=== PATIENT | male | born 1940 | race Caucasian/White ===

== ENCOUNTER 2019-10-20 16:05 | Outpatient (CLI) | payer MEDICARE, SELFPAY ==
[2019-10-20 17:07] LABS: Calcium 9.4 mg/dL (8.5-10.1)
[2019-10-23 10:33] LABS: Vitamin D 25 Hydroxy 62 ng/mL (30-100)
[2019-10-23 13:18] LABS: Parathyroid Intact 93 pg/mL (14-64)
== END 2019-10-20 16:06 | disposition home or self-care (01) ==
LOC: CHSLAB 16:11
DX: M81.0 Age-related osteoporosis without current pathological fracture (principal)
CPT/HCPCS: 36415; 82306; 82310; 83970

== ENCOUNTER 2019-11-22 02:58 | Observation (INO) | payer MEDICARE, OTHER, SELFPAY ==
[2019-11-22] VITALS (18 sets, daily range): BP systolic 96–164; BP diastolic 45–82; PULSE 76–116; RESP 18–30; TEMP 36.1–36.8; O2SAT 96–99; BMI 23.8
--- NOTE | ~2019-11-22 | CT_ITS ---
EXAMINATION:CT chest high resolution w con DATE: 11/22/2019 06:42 INDICATION: Shortness of breath. Pneumonia. TECHNIQUE: Computed tomography (CT) of the chest was performed with 75 mL Omnipaque 350 intravenous c ontrast. Automated exposure control and iterative reconstruction technique were employed. The dose-le ngth product (DLP) was 206.74 mGy-cm. COMPARISON: Chest CT 12/13/2014, chest 2 views 03/08/2019 FINDINGS: There is moderate emphysema. There is a 6 mm nodule and left lower lobe without change, con sistent with granulomatous disease. There is mild atelectasis bilaterally. No pleural effusion. The h eart size is normal. There are coronary artery calcifications. 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 There is a left chest pacer with lead in right ventricle. Calcified right hilar lymph nodes are consistent with old granulomatous disease. Andrew cifications in the liver and spleen are consistent with old granulomatous disease. There is a [address] in the liver. There is cortical thinning of the kidneys. There are bridging endplate osteophytes a t multiple levels in the spine, consistent with diffuse idiopathic skeletal hyperostosis (DISH). Ther e is mild thoracic spondylosis. IMPRESSION: 1. Moderate emphysema. Reviewed, dictated and finalized at location A. IMPRESSION: 1. Moderate emphysema.
--- NOTE | 2019-11-22 03:07 | ECG_ITS ---
Measurements Intervals [place] Rate: 109 P: 83 NH: 171 QRS: 61 QRSD: 88 T: 79 QT: 293 QTc: 396 Interpretive Statements SINUS TACHYCARDIA VENTRICULAR PREMATURE COMPLEX ANTEROSEPTAL INFARCT, AGE INDETERMINATE BORDERLINE T WAVE ABNORMALITY- HIGH LATERAL LEADS BASELINE ARTIFACT- I, II, AVR, AVL, AVF, V1, V4-V6 ABNORMAL ECG Electronically Signed On 11-22-2019 7:49:23 CDT by De Alcocer D.O.
[2019-11-22] MEDS: IPRATROPIUM 0.5 MG/ALBUTEROL SULFATE 2.5 MG AMPUL.NEB 3 ML INHALATION ×3 (03:35→06:02)
[2019-11-22 04:11] LABS: Base Excess ABG 1.1 mmol/L (0-2); HCO3 ABG 27.7 mmol/L (23-29); Oxygen Content ABG 18.9 %vol (16.0-22.0); Oxygen Saturation ABG 97.3 % (95-97); Oxyhemoglobin 96.6 % (94-100); PCO2 ABG 51.6 mmHg (35-45); PO2 ABG 104.6 mmHg (75-85); Total Hemoglobin 13.8 g/dL; pH ABG 7.35 (7.35-7.45)
[2019-11-22 04:15] LABS: Basophils Absolute Auto 0.05 K/mm3 (0.00-0.10); Basophils Percent Auto 0.5 % (0.0-1.0); Eosinophils Percent Auto 4.3 % (1.0-6.0); Hematocrit 40.9 % (37.0-46.0); Hemoglobin 13.4 g/dL (12.4-15.3); Immature Granulocyte Absolute 0.04 K/mm3 (0.00-0.00); Immature Granulocyte Percent A 0.4 % (0.0-0.0); Lymphocytes Absolute Auto 1.43 K/mm3 (1.10-4.50); Lymphocytes Percent Auto 15.5 % (18.0-42.0); Mean Corpuscular HGB Conc 32.8 g/dL (32.0-36.0); Mean Corpuscular Hemoglobin 31.8 pg (27.0-31.0); Mean Corpuscular Volume 97.1 fL (78.0-102.0); Mean Platelet Volume 9.2 fl (8.7-11.0); Monocytes Absolute Auto 0.45 K/mm3 (0.10-0.90); Monocytes Percent Auto 4.9 % (2.0-11.0); Neutrophils Absolute Auto 6.9 K/mm3 (1.7-7.2); Neutrophils Percent Auto 74.4 % (50.0-70.0); Platelet Count Result 275 K/mm3 (150-420); Red Blood Count 4.21 M/mm3 (4.70-6.10); Red Cell Distribution Width 12.6 % (11.6-14.4); White Blood Count 9.2 K/mm3 (4.8-10.8)
[2019-11-22 04:15] LABS: Site Drawn LEFT RADIAL
[2019-11-22 04:16] LABS: Device NASAL CANNULA; Modified Allen's Test Pass
[2019-11-22 04:28] LABS: D Dimer 0.31 mg/L (0.19-0.50)
[2019-11-22 04:34] LABS: Lactic Acid 0.6 mmol/L (0.4-2.0)
[2019-11-22 04:36] LABS: Alanine Aminotransferase 17 U/L (16-63); Albumin Level 3.9 g/dL (3.4-5.0); Alkaline Phosphatase 88 U/L (46-116); Anion Gap 8.1 mmol/L (7-16); Aspartate Amino Transferase 18 U/L (15-37); BNP 122 pg/mL (0-100); Bilirubin,Total 1.1 mg/dL (0.00-1.00); Blood Urea Nitrogen 19 mg/dL (7-18); Calcium 9.3 mg/dL (8.5-10.1); Carbon Dioxide 31 mmol/L (21-32); Chloride 102 mmol/L (98-108); Estimated CRCL calculation 55 ml/min; Estimated Glomerular Filt Rate > 60; Glucose 127 mg/dL (70-99); Osmolality Calculated 288 mOsm/kg (285-295); Potassium 4.1 mmol/L (3.5-5.1); Sodium 137 mmol/L (136-145); Total Protein 7.5 g/dL (6.4-8.2)
[2019-11-22 04:37] LABS: Magnesium 2.2 mg/dL (1.8-2.4); Troponin I < 0.02 ng/mL (0.00-0.056)
[2019-11-22 04:41] LABS: Influenza Control Valid (Valid)
--- NOTE | 2019-11-22 05:21 | ED.SOB ---
HPI - SOB/Dyspnea General Source: patient Mode of arrival: EMS History of Present Illness HPI Narrative: 79 y.o. male with oxygen dependent (3L) COPD and ischemic cardiomyopathy (ejection fraction over 30%) developed acute shortness of breath at about 5 PM on 11/20. Pt denies increased cough, chest pain, sputum production, fever, chills, pedal edema. Lives alone, self isolates. Any attempts to lay flat cause marked incresease in shortness of breath. He sees Dr. Sam, cardiology, and Dr. Fisher, pulmonary. He is allergic to ampicillin. Related Data Home Medications Medication Instructions Recorded Confirmed carvedilol 3.125 mg PO BID 11/22/19 11/22/19 Allergies Allergy/AdvReac Type Severity Reaction Status Date / Time tramadol Allergy Intermediate Hives Verified 03/04/19 13:45 amoxicillin Allergy Mild Rash Verified 03/04/19 13:45 doxycycline Allergy Mild Rash Verified 03/04/19 13:45 latex Allergy Mild Rash Verified 03/04/19 13:45 Review of Systems Constitutional: Constitutional: Denies chills and Denies fever(s) ENT: Denies sore throat Cardiovascular: Cardiovascular: Reports no additional cardiovascular complaints Respiratory: Respiratory: Reports no additional respiratory complaints Gastrointestinal: Gastrointestinal: Denies nausea and Denies vomiting Integumentary/Breasts: Skin/Breast: Denies rash [facility] Past Medical History Medical History (Updated 11/22/19 @ 06:13 by Marcelo Resendez MD) Cardiomyopathy Fall as cause of accidental injury at home as place of occurrence GERD (gastroesophageal reflux disease) Social History Social History (Updated 11/22/19 @ 06:14 by Marcelo Resendez MD) Smoking status: Former smoker Alcohol intake: current Drinks per week: 21 Substance use: never Living arrangements: alone Gender identity (if verbalized by the patient): Male Spiritual care concerns: No Exam Const: General: ill appearing; No diaphoretic Nutritional Appearance: thin Orientation/consciousness: patient oriented x3 Other: Sitting straight up in bed. Tachypneic, supraclavicular ms. use, intercostal retraction, paradoxical breathing, 3 - 4 word sentences. HENMT: Mouth: Yes Normal oral and palatal mucosa present and Yes moist mucous membranes abnormal Neck: Neck: no lymphadenopathy Chest: Chest palpation & inspection: other (intercostal retraction) Resp: Effort & Inspection: abnormal respiratory pattern, no audible wheezes, Actively coughing (occasional dry cough) dry, paradoxical thoraco-abdominal movements, respiratory distress, tachypneic, no tripod positioning and uses accessory muscles Auscultation: no rales, no wheezes and diminished lung sounds diffuse Cardio: Jugular venous distension: JVD (up to 45 degrees.) Rate: regular rate Heart sounds: S1 normal heart sound present, S2 normal heart sound present and no murmurs GI: Inspection: normal to inspection GI Palp: No abdominal tenderness and Yes No hepatosplenomegaly present Back/Spine/Pelvis: Back: no CVA tenderness Skin: General skin exam: normal color Rashes: no rashes Neuro: General: patient oriented x3 Course Course Emergency Course: Pt's dyspnea markedly improved in the E.D. with resolution of labored respirations; pt. speaking full sentences. Vital Signs Vital signs: Vital Signs Temperature 36.8 C 11/22/19 03:10 Pulse Rate 110 H 11/22/19 03:10 Respiratory Rate 30 H 11/22/19 03:10 Blood Pressure 129/79 11/22/19 03:10 Pulse Oximetry 98 11/22/19 03:10 Temperature 36.7 C 11/22/19 06:48 Pulse Rate 98 11/22/19 06:48 Respiratory Rate 20 11/22/19 06:48 Blood Pressure 143/54 H 11/22/19 06:48 Pulse Oximetry 97 11/22/19 06:48 MDM - SOB/Dyspnea MDM Narrative Medical decision making narrative: Acute exacerbation of COPD responsive to solumedrol and duoneb x 3. Will admit for IV antibiotics and steriods. at 5 PM 11/20. Negative d-dimer. No evidence of CHF. Consider SD/ACS. Wi
[2019-11-22 05:51] LABS: Add Urine Microscopic? YES; Appearance Urine Clear (Clear); Bilirubin Urine Negative (Negative); Blood Urine Negative (Negative); Color Urine Yellow (Yellow); Glucose Urine UA Negative (Negative); Ketones Urine Negative (Negative); Leukocyte Esterase Ur 1+ (Negative); Nitrate Urine Negative (Negative); Protein Urine Negative (Negative); Urobilinogen Urine 0.2 mg/dL (0.2-1.0)
[2019-11-22 05:59] LABS: Bacteria Urine Trace /hpf; RBC Urine 0-2 /hpf (0-2)
[2019-11-22] MEDS: levoFLOXacin 500 MG/D5W 100 ML 500 MG/100 ML BAG 100 MG IVPB (06:03)
[2019-11-22] MEDS: ALBUTEROL SULFATE (*SP) INHALER 8 PUFF INHALATION ×4 (09:28→21:27)
[2019-11-22] MEDS: FLUTICASONE PROPIONATE 0.05% NA SPR 16 GM BTL (*BKC) 2 SPRAY NASAL ×2 (09:28→21:28)
[2019-11-22] MEDS: POLYSACCHARIDE IRON COMPLEX 150 MG CAPSULE PO (09:30)
[2019-11-22] MEDS: POTASSIUM CHLORIDE 20 MEQ TABLET 40 MEQ PO (09:30)
[2019-11-22] MEDS: ARFORMOTEROL TARTRATE 15 MCG/2 ML NEB 30 MCG INHALATION (09:30)
[2019-11-22] MEDS: FUROSEMIDE 40 MG TABLET PO (09:30)
[2019-11-22] MEDS: LORATADINE 10 MG TABLET PO (09:31)
[2019-11-22] MEDS: ATORVASTATIN 40 MG TABLET PO (09:31)
[2019-11-22] MEDS: DOCUSATE SODIUM 100 MG CAPSULE PO (09:31)
[2019-11-22] MEDS: ALPRAZolam 0.25 MG TABLET PO ×2 (09:31→16:31)
[2019-11-22] MEDS: carvediloL 3.125 MG TABLET PO ×2 (09:31→16:31)
[2019-11-22] MEDS: SERTRALINE HCL 50 MG TABLET PO (09:31)
[2019-11-22] MEDS: ASPIRIN 81 MG ENTERIC TABLET PO (09:31)
[2019-11-22] MEDS: methylPREDNISolone SOD SUCC 125 MG VIAL 80 MG IV PUSH ×3 (09:32→16:31)
[2019-11-22] MEDS: ENOXAPARIN 40 MG/0.4 ML SYRINGE SUB-Q (09:32)
[2019-11-22] MEDS: BUDESONIDE RESPULE NEB 0.25 MG/2 ML AMP INHALATION (09:32)
[2019-11-22] MEDS: SALINE LOCK FLUSH 2 ML IV PUSH ×3 (09:39→21:32)
--- NOTE | 2019-11-22 10:00 | ECG_ITS ---
Measurements Intervals [place] Rate: 94 P: 78 MD: 171 QRS: 75 QRSD: 88 T: 90 QT: 316 QTc: 395 Interpretive Statements SINUS RHYTHM LOW QRS VOLTAGE IN PRECORDIAL LEADS ANTEROSEPTAL INFARCT, AGE INDETERMINATE BORDERLINE T WAVE ABNORMALITY- INF/HIGH LAT LEADS BASELINE ARTIFACT- V4-V6 ABNORMAL ECG Electronically Signed On 11-22-2019 10:52:32 CDT by De Alcocer D.O.
[2019-11-22 10:38] LABS: Troponin I 0.02 ng/mL (0.00-0.056)
--- NOTE | 2019-11-22 13:15 | PM.IMHP ---
H&P: HPI History of Present Illness Chief complaint: COPD EXACERBATION Narrative: Chip Emery is a 79 year old male white male that presented to [facility] ED with complaints of increased shortness of breath. Patient has a past medical history of cardiomyopathy, GERD, BPH, CAD, COPD, hypertension. According to patient he developed shortness of breath at approximately 5:00 p.m. yesterday. According to patient and worsen when he lied down and moved around. He did get passive nebulizer treatment improvement this, is when he decided to come to our ED. While in our ED patient given steroids, nebulized and inhalers. Patient UA indicated leukocytes esterase ,white blood cells and bacteria ,his troponins was negative his BNP was 122. he was placed on Levaquin, influenza negative COVID-19 pending. patient being admitted for COPD exacerbation. Patient able to tolerate all meals , slept well and ambulate at baseline. Patient denies , CP, palpitation, extremity numbness, lightheadness, dizziness, constipation, diarrhea, chills or fever. Patient noted that his breathing has improved Review of Systems Review of Systems: Narrative: CONSTITUTIONAL :No weight loss, fever, chills, complains of weakness or fatigue.: HEENT: Eyes: No diplopia or blurred vision. ENT: No earache, sore throat or runny nose. CARDIOVASCULAR: No pressure, squeezing, strangling, tightness, heaviness or aching about the chest, neck, axilla or epigastrium. RESPIRATORY: complains of shortness of breath that worsens with ambulation and lying flat GASTROINTESTINAL: No nausea, vomiting or diarrhea. GENITOURINARY: No dysuria, frequency or urgency. MUSCULOSKELETAL: No muscle, back pain, joint pain or stiffness. SKIN: No change in skin, hair or nails. NEUROLOGIC: No paresthesias, fasciculations, seizures or weakness. PSYCHIATRIC: No disorder of thought or mood. ENDOCRINE: No heat or cold intolerance, polyuria or polydipsia. HEMATOLOGICAL: No easy bruising or bleeding. [facility] Past Medical History Medical History (Updated 11/22/19 @ 13:24 by BAILEY [place]) Cardiomyopathy Fall as cause of accidental injury at home as place of occurrence GERD (gastroesophageal reflux disease) Social History Social History (Updated 11/22/19 @ 06:14 by Marcelo Resendez MD) Smoking status: Former smoker Alcohol intake: current Drinks per week: 21 Substance use: never Living arrangements: alone Gender identity (if verbalized by the patient): Male Spiritual care concerns: No Meds Home Medications and Allergies Home Medications Medication Instructions Recorded Confirmed Type fluticasone propionate 2 spray INTRANASAL Q12HR 30 Days 03/14/19 11/22/19 Rx ml loratadine 10 mg PO QAM 30 Days #30 tablet 03/14/19 11/22/19 Rx polysaccharide iron complex 150 mg PO DAILY@0800 30 Days #30 03/14/19 11/22/19 Rx cap potassium chloride [K-Tab] 40 meq PO DAILY 30 Days #60 tablet 03/14/19 11/22/19 Rx Brovana 2 ml INHALATION BID #50 ml 03/15/19 11/22/19 Rx Combivent Respimat 2 puff INHALATION QID #1 inh 03/15/19 11/22/19 Rx alprazolam [Xanax] 0.25 mg PO BID #15 tablet 03/15/19 11/22/19 Rx aspirin [Adult Low Dose Aspirin] 81 mg PO DAILY #30 tablet 03/15/19 11/22/19 Rx atorvastatin 40 mg PO DAILY #30 tablet 03/15/19 11/22/19 Rx budesonide [Pulmicort] 0.25 mg INHALATION BID #50 ml 03/15/19 11/22/19 Rx coenzyme Q10 [Co Q-10] 30 mg PO DAILY #30 cap 03/15/19 11/22/19 Rx cyanocobalamin (vitamin B-12) 1,000 mcg SUBCUT [id number] #1 ml 03/15/19 11/22/19 Rx docusate sodium 100 mg PO DAILY #30 cap 03/15/19 11/22/19 Rx furosemide [Lasix] 40 mg PO DAILY #30 tablet 03/15/19 11/22/19 Rx ipratropium-albuterol 3 ml INHALATION Q2-3H PRN #30 neb 03/15/19 11/22/19 Rx lisinopril 2.5 mg PO HS #30 tablet 03/15/19 11/22/19 Rx nitroglycerin [Nitrostat] 0.4 mg SUBLINGUAL USEASDIRECTD #1 03/15/19 11/22/19 Rx pkg pantoprazole 40 mg PO HS #30 tablet 03/15/19 11/22/19 Rx sertraline 50 mg PO DAILY #30 tablet
[2019-11-22 14:20] LABS: Folic Acid > 20.0 ng/mL (8.6->20); Vitamin B12 373 pg/mL (193-986)
--- NOTE | 2019-11-22 16:00 | ECG_ITS ---
Measurements Intervals [place] Rate: 87 P: 82 [place]: 176 QRS: 64 QRSD: 93 T: 101 QT: 359 QTc: 433 Interpretive Statements SINUS RHYTHM LOW QRS VOLTAGE IN PRECORDIAL LEADS ANTEROSEPTAL INFARCT, AGE INDETERMINATE BORDERLINE T WAVE ABNORMALITY- LAT/HIGH LAT LEADS ABNORMAL ECG Electronically Signed On 11-22-2019 16:16:21 CDT by De Alcocer D.O.
[2019-11-22 16:20] LABS: Troponin I < 0.02 ng/mL (0.00-0.056)
[2019-11-22 19:21] LABS: SARS-CoV-2 RNA PCR Negative
--- NOTE | 2019-11-22 20:00 | PC.NURSE ---
While taking patient's blood pressure nurse noted saline lock to left wrist laying in the bed with him. Dressing removed from area. No active bleeding noted to area.
--- NOTE | 2019-11-22 21:11 | PC.NURSE ---
Patient's covid test came back with a negative result. Patient moved to room 205B.
--- NOTE | 2019-11-22 21:20 | PC.NURSE ---
EKG done. Patient tolerated well.
[2019-11-22] MEDS: guaiFENesin 12 HR 600 MG TABCR PO (21:28)
[2019-11-22] MEDS: lisinopriL 5 MG TABLET 2.5 MG PO (21:30)
[2019-11-22] MEDS: PANTOPRAZOLE 40 MG TABLET PO (21:31)
[2019-11-22] MEDS: TAMSULOSIN HCL 0.4 MG CAPSULE 0.8 MG PO (21:31)
--- NOTE | 2019-11-22 21:45 | PC.NURSE ---
Lab drawn. Patient tolerated well.
--- NOTE | 2019-11-22 22:00 | ECG_ITS ---
Measurements Intervals [place] Rate: 83 P: 82 MO: 164 QRS: 73 QRSD: 89 T: 247 QT: 364 QTc: 429 Interpretive Statements SINUS RHYTHM LOW QRS VOLTAGE IN PRECORDIAL LEADS ANTEROSEPTAL INFARCT, AGE INDETERMINATE BORDERLINE T WAVE ABNORMALITY- INF/LAT LEADS ABNORMAL ECG Electronically Signed On 11-23-2019 7:18:29 CDT by De Alcocer D.O.
[2019-11-22 22:25] LABS: Troponin I < 0.02 ng/mL (0.00-0.056)
[2019-11-23] VITALS (11 sets, daily range): BP systolic 105–115; BP diastolic 45–52; PULSE 71–88; RESP 18–20; TEMP 36.1–36.6; O2SAT 97–98
[2019-11-23] MEDS: SALINE LOCK FLUSH 2 ML IV PUSH (05:34)
[2019-11-23] MEDS: levoFLOXacin 500 MG/D5W 100 ML 500 MG/100 ML BAG 100 MG IVPB (05:34)
[2019-11-23 05:38] LABS: Hematocrit 36.2 % (37.0-46.0); Hemoglobin 12.2 g/dL (12.4-15.3); Mean Corpuscular HGB Conc 33.7 g/dL (32.0-36.0); Mean Corpuscular Hemoglobin 32.4 pg (27.0-31.0); Platelet Count Result 240 K/mm3 (150-420); Red Blood Count 3.77 M/mm3 (4.70-6.10); Red Cell Distribution Width 12.5 % (11.6-14.4); White Blood Count 12.6 K/mm3 (4.8-10.8)
[2019-11-23 05:54] LABS: Alanine Aminotransferase 19 U/L (16-63); Albumin Level 3.5 g/dL (3.4-5.0); Alkaline Phosphatase 75 U/L (46-116); Anion Gap 9.3 mmol/L (7-16); Aspartate Amino Transferase 15 U/L (15-37); Bilirubin,Total 0.8 mg/dL (0.00-1.00); Blood Urea Nitrogen 24 mg/dL (7-18); Calcium 9.2 mg/dL (8.5-10.1); Carbon Dioxide 31 mmol/L (21-32); Chloride 101 mmol/L (98-108); Estimated CRCL calculation 56 ml/min; Estimated Glomerular Filt Rate > 60; Glucose 144 mg/dL (70-99); Osmolality Calculated 291 mOsm/kg (285-295); Potassium 4.3 mmol/L (3.5-5.1); Sodium 137 mmol/L (136-145)
--- NOTE | 2019-11-23 08:04 | PC.NURSE ---
Requesting neb treatment, noted to have been discontinued on JUL, hospitalist notified
[2019-11-23] MEDS: ARFORMOTEROL TARTRATE 15 MCG/2 ML NEB 30 MCG INHALATION (08:26)
[2019-11-23] MEDS: BUDESONIDE RESPULE NEB 0.25 MG/2 ML AMP INHALATION (08:29)
[2019-11-23] MEDS: POLYSACCHARIDE IRON COMPLEX 150 MG CAPSULE PO (09:03)
[2019-11-23] MEDS: methylPREDNISolone SOD SUCC 125 MG VIAL 60 MG IV PUSH (09:04)
[2019-11-23] MEDS: ALPRAZolam 0.25 MG TABLET PO (09:04)
[2019-11-23] MEDS: ATORVASTATIN 40 MG TABLET PO (09:05)
[2019-11-23] MEDS: ASPIRIN 81 MG ENTERIC TABLET PO (09:05)
[2019-11-23] MEDS: carvediloL 3.125 MG TABLET PO (09:06)
[2019-11-23] MEDS: THIAMINE HCL 100 MG TABLET 50 MG PO (09:06)
[2019-11-23] MEDS: POTASSIUM CHLORIDE 20 MEQ TABLET 40 MEQ PO (09:08)
[2019-11-23] MEDS: SERTRALINE HCL 50 MG TABLET PO (09:08)
[2019-11-23] MEDS: DOCUSATE SODIUM 100 MG CAPSULE PO (09:09)
[2019-11-23] MEDS: LORATADINE 10 MG TABLET PO (09:09)
[2019-11-23] MEDS: FUROSEMIDE 40 MG TABLET PO (09:09)
[2019-11-23] MEDS: guaiFENesin 12 HR 600 MG TABCR PO (09:09)
[2019-11-23] MEDS: FLUTICASONE PROPIONATE 0.05% NA SPR 16 GM BTL (*BKC) 2 SPRAY NASAL (09:10)
[2019-11-23] MEDS: ENOXAPARIN 40 MG/0.4 ML SYRINGE SUB-Q (09:12)
--- NOTE | 2019-11-23 10:30 | PC.NURSE ---
up independent in room, voided in bathroom, large formed BM, tolerated well, back to bed, sitting up, oxygen on at 3L NC
--- NOTE | 2019-11-23 11:31 | PC.NURSE ---
No distress at rest, no change in telemetry, no chest pain
--- NOTE | 2019-11-23 11:40 | P.DS_ITS ---
DS: Admitting Diagnosis Admitting Diagnosis Admitting Diagnosis: Gastro-esophageal reflux disease without esophagitis DS: Discharge Diagnosis Discharge Diagnosis (1) GERD (gastroesophageal reflux disease): Code(s): K21.9 - Gastro-esophageal reflux disease without esophagitis Status: Acute Assessment and Plan: * continue PPI * no complaints noted (2) Ischemic cardiomyopathy: Code(s): I25.5 - Ischemic cardiomyopathy Status: Acute Assessment and Plan: * history of EF 32-45% * PPM and AICD placement history * no current chest pain, no worsening or new shortness of breath, improved and resolved dyspnea, does have chronic emphysema (3) Macrocytic anemia with vitamin B12 deficiency: Code(s): D51.9 - Vitamin B12 deficiency anemia, unspecified Status: Acute Assessment and Plan: * continue supplement B12 * stable at this time (4) COPD (chronic obstructive pulmonary disease): Code(s): J44.9 - Chronic obstructive pulmonary disease, unspecified Status: Acute Assessment and Plan: * improved, exacerbation seems to have improved with interventions * restarted patient's home regimen * COVID testing was negative * continue IV steroids this morning, discharged on oral steroids with titrate down * continue oxygen * patient does use home oxygen at 2-3 L, currently back to his baseline O2 level. * will continue to monitor oxygen level as ordered * discharged on BID mucinex * airport operations manager Dr. Fisher - schedule patient for an appointment this in [place], family and friends informed; as well as scheduled him for a [place] clinic appointment with Dr. Fisher for February * D-dimer negative, CT scan without new or acute concerns. * abg-Primary Respiratory Acidosis, Chronic, with: Appropriately Compensated by Metabolic Alkalosis * influenza negative (5) COVID-19 ruled out: Code(s): Z03.818 - Encounter for observation for suspected exposure to other biological agents ruled out Status: Acute Assessment and Plan: * Ruled out * negative test results * no cough, no s/s that cannot be better explained by COPD exacerbation (6) UTI (urinary tract infection): Code(s): N39.0 - Urinary tract infection, site not specified Status: Acute Assessment and Plan: * patient has a history of BPH and urinary retention * possibly secondary to retention * UA indicates leukocytes with WBCs and bacteria * UA culture pending * started Levaquin , will order oral Levaquin at discharge to complete a short course for UTI tx. (7) COPD exacerbation: Code(s): J44.1 - Chronic obstructive pulmonary disease with (acute) exacerbation Status: Acute Assessment and Plan: * refer to COPD * discharged home on a prednisone taper dosing over 10 days * discharged on a short course of Levaquin * he is to follow-up with his airport operations manager this Friday DS: Summary Time Spent with Patient Time attestation: Total time spent providing and/or coordinating discharge services:>60 minutes Exam Narrative: Exam Narrative: Const: General: comfortable, no acute distress and ill appearing; No diaphoretic Nutritional Appearance: thin Orientation/consciousness: patient oriented x3 Limitations: no limitations, No altered mental status and physical limitations ( patient has chronic physical limitations due to his severity of emphysema) Other: Sitting straight up in bed. no intercostal retractions today, speaking full sentences
--- NOTE | 2019-11-23 11:40 | PM.DS ---
DS: Admitting Diagnosis Admitting Diagnosis Admitting Diagnosis: Gastro-esophageal reflux disease without esophagitis DS: Discharge Diagnosis Discharge Diagnosis (1) GERD (gastroesophageal reflux disease): Code(s): K21.9 - Gastro-esophageal reflux disease without esophagitis Status: Acute Assessment and Plan: continue PPI no complaints noted (2) Ischemic cardiomyopathy: Code(s): I25.5 - Ischemic cardiomyopathy Status: Acute Assessment and Plan: history of EF 32-45% PPM and AICD placement history no current chest pain, no worsening or new shortness of breath, improved and resolved dyspnea, does have chronic emphysema (3) Macrocytic anemia with vitamin B12 deficiency: Code(s): D51.9 - Vitamin B12 deficiency anemia, unspecified Status: Acute Assessment and Plan: continue supplement B12 stable at this time (4) COPD (chronic obstructive pulmonary disease): Code(s): J44.9 - Chronic obstructive pulmonary disease, unspecified Status: Acute Assessment and Plan: improved, exacerbation seems to have improved with interventions restarted patient's home regimen COVID testing was negative continue IV steroids this morning, discharged on oral steroids with titrate down continue oxygen patient does use home oxygen at 2-3 L, currently back to his baseline O2 level. will continue to monitor oxygen level as ordered discharged on BID mucinex weaver hand Dr. Fisher - schedule patient for an appointment this Friday in [place], family and friends informed; as well as scheduled him for a [place] clinic appointment with Dr. Fisher for February D-dimer negative, CT scan without new or acute concerns. abg-Primary Respiratory Acidosis, Chronic, with: Appropriately Compensated by Metabolic Alkalosis influenza negative (5) COVID-19 ruled out: Code(s): Z03.818 - Encounter for observation for suspected exposure to other biological agents ruled out Status: Acute Assessment and Plan: Ruled out negative test results no cough, no s/s that cannot be better explained by COPD exacerbation (6) UTI (urinary tract infection): Code(s): N39.0 - Urinary tract infection, site not specified Status: Acute Assessment and Plan: patient has a history of BPH and urinary retention possibly secondary to retention UA indicates leukocytes with WBCs and bacteria UA culture pending started Levaquin , will order oral Levaquin at discharge to complete a short course for UTI tx. (7) COPD exacerbation: Code(s): J44.1 - Chronic obstructive pulmonary disease with (acute) exacerbation Status: Acute Assessment and Plan: refer to COPD discharged home on a prednisone taper dosing over 10 days discharged on a short course of Levaquin he is to follow-up with his weaver hand this Friday DS: Summary Time Spent with Patient Time attestation: Total time spent providing and/or coordinating discharge services:>60 minutes Exam Narrative: Exam Narrative: Const: General: comfortable, no acute distress and ill appearing; No diaphoretic Nutritional Appearance: thin Orientation/consciousness: patient oriented x3 Limitations: no limitations, No altered mental status and physical limitations ( patient has chronic physical limitations due to his severity of emphysema) Other: Sitting straight up in bed. no intercostal retractions today, speaking full sentences and questions HENMT: General nose exam: Normal nares present Mouth: Yes Normal oral and palatal mucosa present, Yes moist mucous membranes and Yes moist mucous membranes abnormal Eyes: General: appearance normal, both eyes and all related structures Pupils: Equal, round and reactive pupils present EOM: EOMs intact bilaterally Neck: Neck: no lymphadenopathy Chest: Chest palpation & inspection: other (intercostal retraction) Res
[2019-11-23] MEDS: IPRATROPIUM 0.5 MG/ALBUTEROL SULFATE 2.5 MG AMPUL.NEB 3 ML INHALATION (12:28)
--- NOTE | 2019-11-23 12:52 | PC.NURSE ---
Telemetry discontinued, patient dressing self, ride contacted
--- NOTE | 2019-11-23 13:05 | PC.NURSE ---
Discharge instructions reviewed, no questions, discharge to home, all personal items returned to patient
== END 2019-11-23 13:05 | disposition home or self-care (01) ==
LOC: CHSED 03:27 → CHS2ND 05:43
PROVIDERS: Nurse Practitioner; Admitting Provider Family Medicine; Emergency Provider Family Medicine; Visit Provider Family Medicine
DX: J44.1 Chronic obstructive pulmonary disease with (acute) exacerbation (principal); N39.0 Urinary tract infection, site not specified; I25.5 Ischemic cardiomyopathy; K21.9 Gastro-esophageal reflux disease without esophagitis; N40.0 Benign prostatic hyperplasia without lower urinary tract symptoms; I25.10 Atherosclerotic heart disease of native coronary artery without angina pectoris; I10 Essential (primary) hypertension; D51.9 Vitamin B12 deficiency anemia, unspecified; Z20.828 Contact with and (suspected) exposure to other viral communicable diseases; Z99.81 Dependence on supplemental oxygen
CPT/HCPCS: 36415; 36600; 71260; 80053; 81001; 82607; 82746; 82805; 83605; 83735; 83880; 84484; 85025; 85027; 85380; 87040; 87086; 87635; 87804; 93005; 94640; 96365; 96366; 96372; 96374; 96375; 96376; 97161; 99283; 99285; A9270; C9803; G0378; J1650; J1956; J2060; J2930; Q9965; U0003

== ENCOUNTER 2019-11-25 19:06 | Emergency (ER) | payer MEDICARE, OTHER, SELFPAY ==
--- NOTE | ~2019-11-25 | XR_ITS ---
EXAMINATION: XR chest 2V DATE: 11/25/2019 20:22 INDICATION: Shortness of breath and cough TECHNIQUE: PA and lateral views of the chest are obtained. COMPARISON: 03/08/2019 FINDINGS: The lungs are hyperinflated but free of acute opacities. There is no pleural effusion or pn eumothorax. The cardiomediastinal silhouette is normal. A single lead pacemaker of the left chest wal l ends with its lead in the right ventricle. There are bridging osteophytes at multiple levels in the spine, consistent with diffuse idiopathic skeletal hyperostosis (DISH). IMPRESSION: 1. No acute cardiopulmonary abnormality. Reviewed, dictated and finalized at location A.
[2019-11-25 19:06] VITALS: BP 116/62; PULSE 97; RESP 18; TEMP 36.8; O2SAT 97
[2019-11-25 19:08] VITALS: PULSE 96
--- NOTE | 2019-11-25 19:22 | ECG_ITS ---
Measurements Intervals [place] Rate: 93 P: 81 [place]: 157 QRS: 60 QRSD: 87 T: 89 QT: 308 QTc: 383 Interpretive Statements SINUS RHYTHM CANNOT RULE OUT SEPTAL INFARCT, AGE INDETERMINATE BORDERLINE ST-T WAVE ABNORMALITY- ANTEROLAT/HIGH LAT LEADS BASELINE WANDER- I, III, AVL, AVF ABNORMAL ECG Electronically Signed On 11-25-2019 20:17:12 CDT by De Alcocer D.O.
[2019-11-25] MEDS: methylPREDNISolone SOD SUCC 125 MG VIAL IV PUSH (19:29)
[2019-11-25 19:45] VITALS: PULSE 88; RESP 16
[2019-11-25 19:45] LABS: Basophils Absolute Auto 0.01 K/mm3 (0.00-0.10); Basophils Percent Auto 0.1 % (0.0-1.0); Eosinophils Absolute Auto 0.01 K/mm3 (0.02-0.50); Eosinophils Percent Auto 0.1 % (1.0-6.0); Hematocrit 37.4 % (37.0-46.0); Hemoglobin 12.6 g/dL (12.4-15.3); Immature Granulocyte Absolute 0.07 K/mm3 (0.00-0.00); Immature Granulocyte Percent A 0.8 % (0.0-0.0); Lymphocytes Absolute Auto 0.55 K/mm3 (1.10-4.50); Lymphocytes Percent Auto 6.4 % (18.0-42.0); Mean Corpuscular HGB Conc 33.7 g/dL (32.0-36.0); Mean Corpuscular Hemoglobin 31.9 pg (27.0-31.0); Mean Corpuscular Volume 94.7 fL (78.0-102.0); Mean Platelet Volume 9.2 fl (8.7-11.0); Monocytes Absolute Auto 0.15 K/mm3 (0.10-0.90); Monocytes Percent Auto 1.7 % (2.0-11.0); Neutrophils Absolute Auto 7.8 K/mm3 (1.7-7.2); Neutrophils Percent Auto 90.9 % (50.0-70.0); Platelet Count Result 289 K/mm3 (150-420); Red Blood Count 3.95 M/mm3 (4.70-6.10); Red Cell Distribution Width 12.7 % (11.6-14.4); White Blood Count 8.6 K/mm3 (4.8-10.8)
[2019-11-25] MEDS: IPRATROPIUM 0.5 MG/ALBUTEROL SULFATE 2.5 MG AMPUL.NEB 3 ML INHALATION (19:45)
[2019-11-25 19:51] VITALS: PULSE 88; RESP 16
[2019-11-25 19:59] LABS: Base Excess ABG 5.2 mmol/L (0-2); HCO3 ABG 29.4 mmol/L (23-29); Oxygen Content ABG 18.1 %vol (16.0-22.0); Oxygen Saturation ABG 98.5 % (95-97); Oxyhemoglobin 97.9 % (94-100); PCO2 ABG 41.8 mmHg (35-45); PO2 ABG 122.8 mmHg (75-85); pH ABG 7.47 (7.35-7.45)
[2019-11-25 19:59] LABS: D Dimer 0.25 mg/L (0.19-0.50)
[2019-11-25 20:00] LABS: Site Drawn LEFT RADIAL
[2019-11-25 20:00] LABS: BNP 69 pg/mL (0-100)
[2019-11-25 20:01] LABS: Device NASAL CANNULA; Modified Allen's Test Pass
[2019-11-25 20:01] LABS: Alanine Aminotransferase 22 U/L (16-63); Albumin Level 3.7 g/dL (3.4-5.0); Alkaline Phosphatase 66 U/L (46-116); Anion Gap 9.6 mmol/L (7-16); Aspartate Amino Transferase 17 U/L (15-37); Bilirubin,Total 0.7 mg/dL (0.00-1.00); Blood Urea Nitrogen 25 mg/dL (7-18); Calcium 9.4 mg/dL (8.5-10.1); Carbon Dioxide 32 mmol/L (21-32); Chloride 100 mmol/L (98-108); Estimated Glomerular Filt Rate 52; Glucose 143 mg/dL (70-99); Magnesium 2.1 mg/dL (1.8-2.4); Osmolality Calculated 290 mOsm/kg (285-295); Potassium 4.6 mmol/L (3.5-5.1); Sodium 137 mmol/L (136-145)
[2019-11-25 20:02] LABS: Troponin I < 0.02 ng/mL (0.00-0.056)
--- NOTE | 2019-11-25 20:42 | ED.SOB ---
HPI - SOB/Dyspnea General Chief Complaint: Shortness of Breath/Dyspnea Stated Complaint: AMB Source: patient Mode of arrival: EMS Limitations: no limitations History of Present Illness HPI Narrative: Patient presents with shortness of breath with cough, apparently the patient coughed up a mucus plug and was feeling better still has some discomfort in his chest, patient was brought in by EMS currently afebrile with no shortness of breath currently no nausea vomiting no chest pain or pressure patient has a history of COPD and cardiomyopathy was recently discharged 2 days ago for pneumonia and UTI and currently lungs are clear with no fever chills no nausea vomiting. MD elicited complaint: shortness of breath and cough Pertinent past history: COPD Onset (ago): hour(s) Context: recent illness and anxiety Timing: improved Severity: mild Exacerbating factors: nothing Relieving factors: bronchodilators Known history of: COPD Associated symptoms: denies other symptoms Related Data Home Medications Medication Instructions Recorded Confirmed carvedilol 3.125 mg PO BID 11/22/19 11/25/19 Allergies Allergy/AdvReac Type Severity Reaction Status Date / Time tramadol Allergy Intermediate Hives Verified 03/04/19 13:45 amoxicillin Allergy Mild Rash Verified 03/04/19 13:45 doxycycline Allergy Mild Rash Verified 03/04/19 13:45 latex Allergy Mild Rash Verified 03/04/19 13:45 Review of Systems Review of Systems: All systems reviewed & are unremarkable except as noted in HPI and below PMFSH Past Medical History Medical History Cardiomyopathy Fall as cause of accidental injury at home as place of occurrence GERD (gastroesophageal reflux disease) Social History Social History Smoking status: Former smoker Alcohol intake: current Drinks per week: 21 Substance use: never Gender identity (if verbalized by the patient): Male Spiritual care concerns: No Exam Narrative: Exam Narrative: Patient appears frustrated that no answers are given to his some medical problems, was discharged approximately 2 days ago and patient verbalizes and file and vulgar language and try to ease his frustration but apparently he is frustrated with some not being able to give him answers from when he was discharged till now. The patient has an appointment to see the pulmonary doctor in the morning and I mention that he should keep that appointment that there is no evidence in his lab, EKG are his x-rays which show that there is any significant problems currently and advised him to follow-up with his primary care physician and with his pulmonary doctor in the morning the the patient appears frustrated and anxious and verbalizes frustration towards me even though I tried to make him aware that there is nothing within the confines of what I find here in the emergency department that would prompt any further investigation inpatient. And that he would probably benefit more from seeing his pulmonary doctor in the morning and receive more answers as far as to what is causing his problems. Course Vital Signs Vital signs: Vital Signs Temperature 36.8 C 11/25/19 19:06 Pulse Rate 97 11/25/19 19:06 Respiratory Rate 18 11/25/19 19:06 Blood Pressure 116/62 11/25/19 19:06 Pulse Oximetry 97 11/25/19 19:06 Temperature 36.8 C 11/25/19 19:06 Pulse Rate 88 11/25/19 19:51 Respiratory Rate 16 11/25/19 19:51 Blood Pressure 116/62 11/25/19 19:06 Pulse Oximetry 97 11/25/19 19:06 MDM - SOB/Dyspnea Lab Data Result diagrams: 11/25/19 19:37 11/25/19 19:37 Labs: Lab Results 11/25/19 11/25/19 11/25/19 Range/Units 19:37 19:37 19:37 WBC 8.6 (4.8-10.8) K/mm3 RBC 3.95 L (4.70-6.10) M/mm3 Hgb 12.6 (12.4-15.3) g/dL Hct 37.4 (37.0-46.0) % MCV 94.7 (78.0-102.0) fL MCH 31.9
[2019-11-25 20:53] VITALS: BP 109/57; PULSE 90; RESP 15; O2SAT 98
== END 2019-11-25 21:05 | disposition home or self-care (01) ==
PROVIDERS: Emergency Provider Emergency Medicine
DX: J44.9 Chronic obstructive pulmonary disease, unspecified (principal); K21.9 Gastro-esophageal reflux disease without esophagitis; Z87.891 Personal history of nicotine dependence
CPT/HCPCS: 36415; 36600; 71046; 80053; 82805; 83735; 83880; 84484; 85025; 85380; 87040; 93005; 94640; 96374; 99284; J2930

== ENCOUNTER 2020-02-05 12:28 | Emergency (ER) | payer MEDICARE, OTHER, SELFPAY ==
--- NOTE | ~2020-02-05 | XR_ITS ---
EXAMINATION: XR chest 2V EXAM DATE: 02/05/2020 14:07 INDICATION: Dyspnea for one day. TECHNIQUE: Frontal and lateral projections of the chest obtained and reviewed. Comparison is made to prior examination from 11/25/2019. FINDINGS: There is single lead pacemaker/AICD device seen with tip projecting over the expected loca tion of right ventricle. Moderate chronic hyperinflation. The lungs are clear. There are no pleural effusions. The cardiomediastinal silhouette is within normal limits. There is no pneumothorax suspe cted. 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 IMPRESSION: No acute cardiopulmonary findings. Hyperinflation. Reviewed, dictated and finalized at location A.
[2020-02-05 12:30] VITALS: BP 93/56; PULSE 80; RESP 18; TEMP 36.7; O2SAT 100
[2020-02-05 13:00] VITALS: BP 113/56; PULSE 82; RESP 16; O2SAT 99
[2020-02-05 13:13] VITALS: PULSE 80; RESP 18
[2020-02-05] MEDS: methylPREDNISolone SOD SUCC 125 MG VIAL IV PUSH (13:13)
[2020-02-05] MEDS: IPRATROPIUM 0.5 MG/ALBUTEROL SULFATE 2.5 MG AMPUL.NEB 3 ML INHALATION (13:14)
[2020-02-05 13:30] VITALS: BP 103/56; PULSE 80; PULSE 81; RESP 16; RESP 18; O2SAT 98
[2020-02-05 13:43] LABS: Hematocrit 36.1 % (37.0-46.0); Mean Corpuscular HGB Conc 33.2 g/dL (32.0-36.0); Mean Corpuscular Hemoglobin 32.6 pg (27.0-31.0); Mean Corpuscular Volume 98.1 fL (78.0-102.0); Mean Platelet Volume 8.8 fl (8.7-11.0); Platelet Count Result 363 K/mm3 (150-420); Red Blood Count 3.68 M/mm3 (4.70-6.10); Red Cell Distribution Width 12.3 % (11.6-14.4); White Blood Count 7.7 K/mm3 (4.8-10.8)
[2020-02-05 13:59] LABS: BNP 176 pg/mL (0-100)
[2020-02-05 14:05] LABS: Alanine Aminotransferase 16 U/L (16-63); Albumin Level 3.4 g/dL (3.4-5.0); Alkaline Phosphatase 102 U/L (46-116); Anion Gap 5 mmol/L (8-16); Aspartate Amino Transferase 14 U/L (15-37); Bilirubin,Total 0.9 mg/dL (0.00-1.00); Blood Urea Nitrogen 12 mg/dL (7-18); Calcium 8.9 mg/dL (8.5-10.1); Carbon Dioxide 30 mmol/L (21-32); Chloride 102 mmol/L (98-108); Estimated Glomerular Filt Rate > 60; Glucose 115 mg/dL (70-99); Osmolality Calculated 284 mOsm/kg (285-295); Sodium 137 mmol/L (136-145)
[2020-02-05 14:07] LABS: Troponin I < 0.02 ng/mL (0.00-0.056)
[2020-02-05 14:10] LABS: Lactic Acid Reflex 0.9 mmol/L (0.4-2.0)
[2020-02-05] MEDS: SODIUM CHLORIDE 0.9% IV 500 ML 999 ML IV CONT (14:26)
--- NOTE | 2020-02-05 14:27 | ED.GENADULT ---
HPI - General Adult General Chief complaint: Shortness of Breath/Dyspnea Stated complaint: ambulance Source: patient and EMS Mode of arrival: EMS Limitations: no limitations History of Present Illness HPI narrative: This is a 71-year-old gentleman presents via EMS with some mild shortness of breath felt like he was dehydrated and felt anxious with no chest pain no cough no fever chills no nausea vomiting or abdominal pain no diarrhea constipation. The patient was having some mild shortness of breath and felt there was weakness and called EMS. Onset (ago): day(s) Radiation: non-radiation Severity: mild Associated symptoms: shortness of breath Related Data Home Medications Medication Instructions Recorded Confirmed carvedilol 3.125 mg PO BID 11/22/19 02/05/20 Allergies Allergy/AdvReac Type Severity Reaction Status Date / Time tramadol Allergy Intermediate Hives Verified 03/04/19 13:45 amoxicillin Allergy Mild Rash Verified 03/04/19 13:45 doxycycline Allergy Mild Rash Verified 03/04/19 13:45 latex Allergy Mild Rash Verified 03/04/19 13:45 Review of Systems Review of Systems: All systems reviewed & are unremarkable except as noted in HPI and below PMFSH Social History Social History Smoking status: Former smoker Alcohol intake: current Drinks per week: 21 Substance use: never Gender identity (if verbalized by the patient): Male Spiritual care concerns: No Exam Const: General: no acute distress Orientation/consciousness: patient oriented x3 HENMT: Head: normal to inspection Eyes: Conjunctivae: conjunctivae normal Pupils: Equal, round and reactive pupils present EOM: EOMs intact bilaterally Chest: Chest palpation & inspection: normal inspection of the chest Resp: Effort & Inspection: normal respiratory effort Auscultation: clear to auscultation bilaterally GI: GI Palp: Yes Soft to palpation Percussion: Yes normal to percussion Auscultation: normal bowel sounds : Testes: Testes normal Urinary Catheter: Urinary Catheter: patent and draining Back/Spine/Pelvis: Back: no CVA tenderness Skin: General skin exam: normal color Rashes: no rashes Neuro: General: patient oriented x3, moves all extremities, no meningeal signs and no focal motor deficits Extrem: General: normal to inspection and no pedal edema Psych: Appearance: grossly normal Mental Status: mental status grossly normal Affect: normal affect Course Course Emergency Course: Reassessment of patient is breathing much easierr, has been taken Lasix and are and feels that he is dehydrated will hydrate with half a L and send home with p.o. antibiotics. Medical Decision Making Lab Data Result diagrams: 02/05/20 13:35 02/05/20 13:35 Labs: Lab Results 02/05/20 02/05/20 02/05/20 Range/Units 13:35 13:35 13:35 WBC 7.7 (4.8-10.8) K/mm3 RBC 3.68 L (4.70-6.10) M/mm3 Hgb 12.0 L (12.4-15.3) g/dL Hct 36.1 L (37.0-46.0) % MCV 98.1 (78.0-102.0) fL MCH 32.6 H (27.0-31.0) pg MCHC 33.2 (32.0-36.0) g/dL RDW 12.3 (11.6-14.4) % Plt Count 363 (150-420) K/mm3 MPV 8.8 (8.7-11.0) fl Sodium 137 (136-145) mmol/L Potassium 4.0 (3.5-5.1) mmol/L Chloride 102 (98-108) mmol/L Carbon Dioxide 30 (21-32) mmol/L Anion Gap 5 L (8-16) mmol/L BUN 12 (7-18) mg/dL Creatinine 0.80 (0.70-1.30) mg/dL Estim Creat Clear Calc Not Reportable Estimated GFR > 60 (59 - ) Glucose 115 H (70-99) mg/dL Calculated Osmolality 284 L (285-295) mOsm/kg Lactic Acid (0.4-2.0) mmol/L Calcium 8.9 (8.5-10.1) mg/dL Total Bilirubin 0.9 (0.00-1.00) mg/dL AST 14 L (15-37) U/L ALT 16 (16-63) U/L Alkaline Phosphatase 102 (46-116) U/L Troponin I < 0.02 (0.00-0.056) ng/mL B-Natriuretic Peptide 176 H (0-100) pg/mL Total Protein 7.0 (6.4-8.2) g/dL A
[2020-02-05 14:50] VITALS: BP 126/68; PULSE 81; RESP 14; O2SAT 98
== END 2020-02-05 15:00 | disposition home or self-care (01) ==
PROVIDERS: Emergency Provider Emergency Medicine
DX: E86.0 Dehydration (principal); J06.9 Acute upper respiratory infection, unspecified; Z87.891 Personal history of nicotine dependence
CPT/HCPCS: 36415; 71046; 80053; 83605; 83880; 84484; 85027; 87040; 94640; 96361; 96374; 96375; 99284; J2930; J7040

== ENCOUNTER 2020-02-17 11:28 | Observation (INO) | payer MEDICARE, OTHER, SELFPAY ==
[2020-02-17] VITALS (13 sets, daily range): BP systolic 133–156; BP diastolic 62–77; PULSE 63–82; RESP 16–20; TEMP 36.2–36.6; O2SAT 95–100; BMI 22.6
--- NOTE | ~2020-02-17 | XR_ITS ---
EXAMINATION: XR abdomen obstructive series DATE: 02/17/2020 14:45 INDICATION: Nausea and vomiting. Generalized abdominal pain. TECHNIQUE: Upright and supine views of the abdomen on 3 radiographs were obtained. COMPARISON: None. FINDINGS: There are no dilated loops of bowel. There is a moderate volume of stool in the colon. No f ree intraperitoneal gas. There is a bipolar left hip hemiarthroplasty. There is a pacer wire in right ventricle of the heart. IMPRESSION: 1. Nonobstructive bowel gas pattern. Reviewed, dictated and finalized at location A.
--- NOTE | 2020-02-17 11:38 | ED.NAVMDI ---
HPI - Nausea/Vomiting/Diarrhea General Chief complaint: Nausea/Vomiting/Diarrhea Stated complaint: possible food poisoning Time Seen by Provider: 02/17/20 11:38 Source: patient Mode of arrival: wheelchair Limitations: no limitations History of Present Illness HPI Narrative: 79-year-old man with a history of COPD and cardiomyopathy comes to the emergency department today complaining of vomiting, nausea and diarrhea since he woke this morning. He states he has had some crampy abdominal pain and gas. Patient states that he has had no fever, sick contacts, blood in his stool, blood in his vomitus, chest pain, shortness of breath, dysuria, or rash. MD elicited complaint: nausea, vomiting and diarrhea Onset (ago): hour(s) Description of vomiting: food contents and watery Description of diarrhea: watery Associated nausea: Yes Associated abdominal pain: Yes Location of pain: diffuse Pain consistency: intermittent Severity: mild Quality: cramping Exacerbating factors: eating Relieving factors: none Context: possible food poisoning and recent antibiotic use Associated symptoms: nausea/vomiting Related Data Home Medications Medication Instructions Recorded Confirmed ammonium lactate 1 applic TOPICAL BID 02/17/20 02/17/20 calcium carbonate-vitamin D3 [All 1 tablet PO DAILY 02/17/20 02/17/20 Day Calcium] carvedilol 6.25 mg PO BID 02/17/20 02/17/20 cholecalciferol (vitamin D3) 25 mcg PO DAILY 02/17/20 02/17/20 [Vitamin D3] mecobalamin (vitamin B12) 1,000 mcg PO DAILY 02/17/20 02/17/20 potassium chloride 20 meq PO DAILY 02/17/20 02/17/20 sennosides-docusate sodium 1 tab-cap PO HS 02/17/20 02/17/20 [Senna-S] sertraline 100 mg PO DAILY 02/17/20 02/17/20 triamcinolone acetonide 1 applic TOPICAL BID 02/17/20 02/17/20 Allergies Allergy/AdvReac Type Severity Reaction Status Date / Time tramadol Allergy Intermediate Hives Verified 03/04/19 13:45 amoxicillin Allergy Mild Rash Verified 03/04/19 13:45 doxycycline Allergy Mild Rash Verified 03/04/19 13:45 latex Allergy Mild Rash Verified 03/04/19 13:45 Review of Systems Constitutional: Constitutional: Denies chills, Denies fever(s) and Denies weakness Eyes: Eyes: Denies change in vision and Denies photophobia ENT: Denies dysphagia, Denies nasal congestion and Denies sore throat Cardiovascular: Cardiovascular: Denies chest pain and Denies radiating jaw, neck or arm pain Respiratory: Respiratory: Denies cough, Denies dyspnea and Denies wheezing Gastrointestinal: Gastrointestinal: Reports abdominal pain, Reports diarrhea, Reports nausea and Reports vomiting Genitourinary: Genitourinary: Denies dysuria and Denies urinary frequency Musculoskeletal: Musculoskeletal: Denies arthralgias and Denies joint swelling Integumentary/Breasts: Skin/Breast: Denies pruritus, Denies erythema and Denies rash Neurologic: Denies vertigo, Denies dizziness and Denies syncope Hematologic/Lymphatic: Hematologic/Lymphatic: Denies easy bleeding and Denies easy bruising Allergic/Immunologic: Allergic/Immunologic: Denies lip swelling and Denies tongue swelling PMFSH Past Medical History Medical History (Updated 02/17/20 @ 20:34 by Marcelo Fernandez MD) Cardiomyopathy Fall as cause of accidental injury at home as place of occurrence GERD (gastroesophageal reflux disease) Social History Social History Smoking status: Never smoker Alcohol intake: current Drinks per week: 12 Substance use: never Gender identity (if verbalized by the patient): Male Spiritual care concerns: No Exam Const: General: healthy appearing and alert Orientation/consciousness: patient oriented x3 Limitations: no limitations Other: Mild acute distress HENMT: Head: normal to inspection Ears: external ears normal, TM's normal bilaterally and EAC's normal General nose exam: Normal nares present Face and sinus: normal facial exam Mouth: Yes moist m
[2020-02-17] MEDS: SODIUM CHLORIDE 0.9% IV 1,000 ML 999 ML IV CONT ×2 (11:55→14:52)
[2020-02-17] MEDS: ONDANSETRON INJ 4 MG/2 ML VIAL IV PUSH ×2 (11:56→13:45)
[2020-02-17 12:00] LABS: Glucose Point of Care 160 (65-105)
[2020-02-17 12:07] LABS: Basophils Absolute Auto 0.02 K/mm3 (0.00-0.10); Basophils Percent Auto 0.1 % (0.0-1.0); Eosinophils Percent Auto 0.7 % (1.0-6.0); Hematocrit 38.5 % (37.0-46.0); Hemoglobin 12.8 g/dL (12.4-15.3); Immature Granulocyte Absolute 0.11 K/mm3 (0.00-0.00); Immature Granulocyte Percent A 0.8 % (0.0-0.0); Lymphocytes Percent Auto 6.7 % (18.0-42.0); Mean Corpuscular HGB Conc 33.2 g/dL (32.0-36.0); Mean Corpuscular Hemoglobin 32.2 pg (27.0-31.0); Mean Corpuscular Volume 96.7 fL (78.0-102.0); Monocytes Absolute Auto 0.66 K/mm3 (0.10-0.90); Monocytes Percent Auto 4.9 % (2.0-11.0); Neutrophils Absolute Auto 11.6 K/mm3 (1.7-7.2); Neutrophils Percent Auto 86.8 % (50.0-70.0); Platelet Count Result 378 K/mm3 (150-420); Red Blood Count 3.98 M/mm3 (4.70-6.10); White Blood Count 13.4 K/mm3 (4.8-10.8)
[2020-02-17 12:17] LABS: Add Urine Microscopic? NO; Appearance Urine Clear (Clear); Bilirubin Urine Negative (Negative); Blood Urine Negative (Negative); Color Urine Yellow (Yellow); Glucose Urine UA Negative (Negative); Ketones Urine Negative (Negative); Leukocyte Esterase Ur Negative LEU/UL (Negative); Nitrate Urine Negative (Negative); Protein Urine Negative (Negative); Urobilinogen Urine 0.2 mg/dL (0.2-1.0); pH Urine 7.5 (5.0-8.0)
[2020-02-17 12:21] LABS: Alanine Aminotransferase 31 U/L (16-63); Albumin Level 3.7 g/dL (3.4-5.0); Alkaline Phosphatase 76 U/L (46-116); Anion Gap 4 mmol/L (8-16); Aspartate Amino Transferase 17 U/L (15-37); Bilirubin,Total 0.9 mg/dL (0.00-1.00); Blood Urea Nitrogen 20 mg/dL (7-18); Calcium 8.9 mg/dL (8.5-10.1); Carbon Dioxide 35 mmol/L (21-32); Chloride 99 mmol/L (98-108); Estimated Glomerular Filt Rate > 60; Glucose 153 mg/dL (70-99); Lipase 46 U/L (73-393); Osmolality Calculated 291 mOsm/kg (285-295); Sodium 138 mmol/L (136-145); Total Protein 6.5 g/dL (6.4-8.2)
--- NOTE | 2020-02-17 14:00 | PC.NURSE ---
Pt given po challenge with ice water. pt unable to hold down.
[2020-02-17] MEDS: IPRATROPIUM 0.5 MG/ALBUTEROL SULFATE 2.5 MG AMPUL.NEB 3 ML INHALATION (15:04)
--- NOTE | 2020-02-17 15:53 | PHAR ---
02/17/20 - VERIFIED NO RUBBER LATEX IN ENOXAPARIN 40MG STOPPER. DR. ESTEVEZ SPECIFIED Q3H PRN FOR DUONEB. OK TO DC CO-Q10 PER DR. Landers SINCE ON'T STOCK. TLS
[2020-02-17] MEDS: SODIUM CHLORIDE 0.9% IV 1,000 ML 150 ML IV CONT (16:15)
[2020-02-17] MEDS: ENOXAPARIN 40 MG/0.4 ML SYRINGE SUB-Q (16:15)
--- NOTE | 2020-02-17 17:35 | ADMGEN ---
This patient, Chip Emery, was admitted to 2nd Floor Room 204-2. Patient/family oriented to hospital policies and general routines including ID bracelet, bed and alarms, visiting hours, pain management, procedures, bathroom and other care routines, personal items, smoking policy, room service/diet, and visiting hours. Libra has been in to discuss neb sched with pt, pt has wallet and watch with him per his request Information on how to activate the Rapid Response Team has been discussed. Patient/Family are encouraged to report perceived risks to care and to ask questions if they do not understand what they are told or what they should do.
--- NOTE | 2020-02-17 18:05 | PC.NURSE ---
pt does not want to eat dinner at this time but will try later, states his nausea is better but still present, iv fluids running
--- NOTE | 2020-02-17 19:15 | PC.NURSE ---
pt asks if dr will turn down fluids because he has to pee so often and cant sleep, tried some of his chicken broth but did not like the taste, pt has drank some apple juice, sitting up at bedside, no emesis but still nausea, offered zofran and pt declined for now
[2020-02-17] MEDS: BUDESONIDE RESPULE NEB 0.25 MG/2 ML AMP INHALATION (20:21)
[2020-02-17] MEDS: ARFORMOTEROL TARTRATE 15 MCG/2 ML NEB 30 MCG INHALATION (20:25)
[2020-02-17] MEDS: TRIAMCINOLONE ACET 0.1% CREAM 15 GM TUBE 1 APPLIC TOPICAL (20:25)
[2020-02-17] MEDS: PANTOPRAZOLE 40 MG TABLET PO (20:40)
[2020-02-17] MEDS: carvediloL 6.25 MG TABLET PO (20:41)
[2020-02-17] MEDS: TAMSULOSIN HCL 0.4 MG CAPSULE 0.8 MG PO (20:41)
[2020-02-17] MEDS: lisinopriL 5 MG TABLET 2.5 MG PO (20:42)
--- NOTE | 2020-02-17 20:55 | PC.NURSE ---
gives order to turn pt fluids down to 40/hr, pt finished with nebs, takes pills with no difficulties, drinks more juice
--- NOTE | 2020-02-17 22:44 | PC.NURSE ---
pt appears to be sleeping, iv fluids running
[2020-02-18] VITALS (14 sets, daily range): BP systolic 71–110; BP diastolic 32–46; PULSE 63–88; RESP 18–22; TEMP 36.6–36.9; O2SAT 97–99
--- NOTE | 2020-02-18 00:30 | PC.NURSE ---
Pt voided in urinal @ bedside. IV continues 40ml hr 0.9NS.
--- NOTE | 2020-02-18 03:09 | PC.NURSE ---
Pt had sm amt clear liquids. Stated he is feeling better.
[2020-02-18 05:37] LABS: Basophils Absolute Auto 0.01 K/mm3 (0.00-0.10); Basophils Percent Auto 0.1 % (0.0-1.0); Eosinophils Absolute Auto 0.08 K/mm3 (0.02-0.50); Eosinophils Percent Auto 0.8 % (1.0-6.0); Hematocrit 32.2 % (37.0-46.0); Hemoglobin 10.6 g/dL (12.4-15.3); Immature Granulocyte Absolute 0.07 K/mm3 (0.00-0.00); Immature Granulocyte Percent A 0.7 % (0.0-0.0); Lymphocytes Absolute Auto 1.46 K/mm3 (1.10-4.50); Lymphocytes Percent Auto 14.4 % (18.0-42.0); Mean Corpuscular HGB Conc 32.9 g/dL (32.0-36.0); Mean Corpuscular Hemoglobin 31.7 pg (27.0-31.0); Mean Corpuscular Volume 96.4 fL (78.0-102.0); Mean Platelet Volume 9.2 fl (8.7-11.0); Monocytes Absolute Auto 0.67 K/mm3 (0.10-0.90); Monocytes Percent Auto 6.6 % (2.0-11.0); Neutrophils Absolute Auto 7.8 K/mm3 (1.7-7.2); Neutrophils Percent Auto 77.4 % (50.0-70.0); Platelet Count Result 295 K/mm3 (150-420); Red Blood Count 3.34 M/mm3 (4.70-6.10); White Blood Count 10.1 K/mm3 (4.8-10.8)
[2020-02-18 05:54] LABS: Alanine Aminotransferase 26 U/L (16-63); Albumin Level 2.9 g/dL (3.4-5.0); Alkaline Phosphatase 57 U/L (46-116); Anion Gap 5 mmol/L (8-16); Aspartate Amino Transferase < 10 U/L (15-37); Blood Urea Nitrogen 13 mg/dL (7-18); Calcium 8.1 mg/dL (8.5-10.1); Carbon Dioxide 32 mmol/L (21-32); Chloride 100 mmol/L (98-108); Estimated CRCL calculation 67 ml/min; Estimated Glomerular Filt Rate > 60; Glucose 95 mg/dL (70-99); Osmolality Calculated 284 mOsm/kg (285-295); Potassium 3.2 mmol/L (3.5-5.1); Sodium 137 mmol/L (136-145); Total Protein 5.1 g/dL (6.4-8.2)
--- NOTE | 2020-02-18 07:36 | PM.SD ---
Same Day Admit/Disch: HPI History of Present Illness Chief complaint: gastroenteritis dehydration <BACILIO Farias - Last Filed: 02/18/20 15:08> Narrative: Chip Emery is a 79 year old male who was admitted for dehydration resulting from nausea vomiting and diarrhea that started yesterday morning. Patient admits to some body aches but he denies fevers, chills. Patient states he thought he had food poisoning. Patient states that over the last 3 days he was repeating leftovers and then woke up the next morning as described above which lead into think gave himself food poisoning. While under my care today patient has not had any nausea, vomiting, or even a bowel movement. <BACILIO Farias - Last Filed: 02/18/20 15:08> [facility] Past Medical History Medical History: Medical History Cardiomyopathy Fall as cause of accidental injury at home as place of occurrence GERD (gastroesophageal reflux disease) <BACILIO Farias - Last Filed: 02/18/20 15:08> Social History Social History: Social History Smoking status: Never smoker Alcohol intake: current Drinks per week: 12 Substance use: never Gender identity (if verbalized by the patient): Male Spiritual care concerns: No <BACILIO Farias - Last Filed: 02/18/20 15:08> Same Day Admit/Disch: Med Pre-admit Medications Home Medications: Home Medications Medication Instructions Recorded Confirmed Type Brovana 2 ml INHALATION BID #50 ml 03/15/19 02/17/20 Rx Combivent Respimat 2 puff INHALATION QID #1 inh 03/15/19 02/17/20 Rx aspirin [Adult Low Dose Aspirin] 81 mg PO DAILY #30 tablet 03/15/19 02/17/20 Rx atorvastatin 40 mg PO DAILY #30 tablet 03/15/19 02/17/20 Rx budesonide [Pulmicort] 0.25 mg INHALATION BID #50 ml 03/15/19 02/17/20 Rx coenzyme Q10 [Co Q-10] 30 mg PO DAILY #30 cap 03/15/19 02/17/20 Rx ipratropium-albuterol 3 ml INHALATION Q2-3H PRN #30 neb 03/15/19 02/17/20 Rx lisinopril 2.5 mg PO HS #30 tablet 03/15/19 02/17/20 Rx nitroglycerin [Nitrostat] 0.4 mg SUBLINGUAL USEASDIRECTD #1 03/15/19 02/17/20 Rx pkg pantoprazole 40 mg PO HS #30 tablet 03/15/19 02/17/20 Rx tamsulosin 0.8 mg PO HS #30 cap 03/15/19 02/17/20 Rx alprazolam [Xanax] 0.25 mg PO BID PRN #15 tablet 11/23/19 02/17/20 Rx guaifenesin [Mucus Relief ER] 600 mg PO Q12HR 30 Days #60 tablet 11/23/19 02/17/20 Rx ammonium lactate 1 applic TOPICAL BID 02/17/20 02/17/20 History calcium carbonate-vitamin D3 1 tablet PO DAILY 02/17/20 02/17/20 History carvedilol 6.25 mg PO BID 02/17/20 02/17/20 History cholecalciferol (vitamin D3) 25 mcg PO DAILY 02/17/20 02/17/20 History [Vitamin D3] mecobalamin (vitamin B12) 1,000 mcg PO DAILY 02/17/20 02/17/20 History potassium chloride 20 meq PO DAILY 02/17/20 02/17/20 History sennosides-docusate sodium 1 tab-cap PO HS 02/17/20 02/17/20 History [Senna-S] sertraline 100 mg PO DAILY 02/17/20 02/17/20 History triamcinolone acetonide 1 applic TOPICAL BID 02/17/20 02/17/20 History <BACILIO Farias - Last Filed: 02/18/20 15:08> Exam Const: General: cooperative, comfortable, no acute distress, alert, awake and Physically active <BACILIO Farias - Last Filed: 02/18/20 15:08> Resp: Effort & Inspection: normal respiratory effort <BACILIO Farias - Last Filed: 02/18/20 15:08> Auscultation: clear to auscultation bilaterally <BACILIO Farias - Last Filed: 02/18/20 15:08> Other: 2 L nasal cannula same flow rate as his home oxygen <BACILIO Farias - Last Filed: 02/18/20 15:08> Cardio: Jugular venous distension: no JVD <BACILIO Farias - Last Filed: 02/18/20 15:08> Rate: regular rate <BACILIO Farias - Last Filed: 02/18/20 15:08> Rhythm: regular rhythm <BACILIO Farias - Last Filed: 02/18/20 15:08> Heart sounds: S1 normal heart sound present and S2 norm
[2020-02-18] MEDS: POTASSIUM CHLORIDE 20 MEQ TABLET 40 MEQ PO (08:03)
[2020-02-18] MEDS: BUDESONIDE RESPULE NEB 0.25 MG/2 ML AMP INHALATION (08:03)
--- NOTE | 2020-02-18 08:05 | PC.NURSE ---
Up sitting on edge of bed, feeling better, no n/v, taking po fluids, given extra potassium 40 meq this am for K of 3.2, noted to be 4.0 yesterday, oxygen on at 3 L NC per home dose, requesting am nebs to be given, cardio aware
[2020-02-18] MEDS: ARFORMOTEROL TARTRATE 15 MCG/2 ML NEB 30 MCG INHALATION (08:08)
--- NOTE | 2020-02-18 09:00 | PC.NURSE ---
Sitting on edge of bed, denies needs, oxygen in place
[2020-02-18] MEDS: CALCIUM/VITAMIN D 250 MG TABLET 2 TABLET PO (09:41)
[2020-02-18] MEDS: CHOLECALCIFEROL 1,000 UNITS TABLET 1000 UNITS PO (09:41)
[2020-02-18] MEDS: ASPIRIN 81 MG ENTERIC TABLET PO (09:42)
[2020-02-18] MEDS: carvediloL 6.25 MG TABLET PO (09:42)
[2020-02-18] MEDS: CYANOCOBALAMIN 1,000 MCG TABLET 1000 MCG PO (09:42)
[2020-02-18] MEDS: SERTRALINE HCL 50 MG TABLET 100 MG PO (09:43)
[2020-02-18] MEDS: ATORVASTATIN 40 MG TABLET PO (09:43)
[2020-02-18] MEDS: POTASSIUM CHLORIDE 20 MEQ TABLET PO (09:44)
--- NOTE | 2020-02-18 10:01 | PC.NURSE ---
no n/v/d, tolerating oral fluids
[2020-02-18] MEDS: IPRATROPIUM 0.5 MG/ALBUTEROL SULFATE 2.5 MG AMPUL.NEB 3 ML INHALATION ×2 (10:47→14:36)
--- NOTE | 2020-02-18 11:00 | PC.NURSE ---
REsting in bed, no n/v/d
--- NOTE | 2020-02-18 12:02 | PC.NURSE ---
Regular tray for lunch, will assess if tolerates prior to discharge to home today
--- NOTE | 2020-02-18 12:47 | PC.NURSE ---
formed BM obtained and taken to lab for testing
[2020-02-18 13:39] LABS: Occult Blood Negative (Negative)
[2020-02-18] MEDS: SODIUM CHLORIDE 0.9% IV 1,000 ML 999 ML IV CONT (13:58)
--- NOTE | 2020-02-18 14:14 | PC.NURSE ---
No n/v at this time, did get fuzzy during orthostatic vitals, new fluid bolus currently infusing
--- NOTE | 2020-02-18 15:40 | PC.NURSE ---
Discharge instructions reviewed, no questions, discharged to home with personal belongings
--- NOTE | 2020-02-22 11:45 | PC.NURSE ---
Discharge call back complete. Pt states he was given his instructions written and verbally and he understood everything. He voiced no questions or concerns regarding his care.
== END 2020-02-18 15:40 | disposition home or self-care (01) ==
LOC: CHSED 12:06 → CHS2ND 15:22
PROVIDERS: Admitting Provider Emergency Medicine; Emergency Provider Emergency Medicine; Visit Provider Emergency Medicine
DX: E86.0 Dehydration (principal); K52.9 Noninfective gastroenteritis and colitis, unspecified; I95.1 Orthostatic hypotension; N19 Unspecified kidney failure; J44.9 Chronic obstructive pulmonary disease, unspecified; I42.9 Cardiomyopathy, unspecified; K21.9 Gastro-esophageal reflux disease without esophagitis
CPT/HCPCS: 36415; 51701; 74019; 80053; 81003; 82948; 83690; 85025; 87040; 87045; 87046; 87324; 87427; 89055; 94640; 96361; 96372; 96374; 96376; 99284; 99285; A9270; G0378; J1650; J2405; J7030

== ENCOUNTER 2020-02-25 13:11 | Emergency (ER) | payer MEDICARE, OTHER, SELFPAY ==
[2020-02-25] VITALS (9 sets, daily range): BP systolic 134–164; BP diastolic 66–98; PULSE 85–112; RESP 14–36; TEMP 36.6; O2SAT 92–100
--- NOTE | ~2020-02-25 | CT_ITS ---
EXAMINATION: CT abdomen pelvis wo con DATE: 02/25/2020 14:37 INDICATION: Blood in stool. Shortness of breath. TECHNIQUE: Computed tomography (CT) of the abdomen and pelvis was performed without intravenous contr ast. Automated exposure control and iterative reconstruction technique were employed. The dose-length product was 525.81 mGy-cm. COMPARISON: Chest CT 12/13/2014, 11/22/2019 FINDINGS: The visualized portions of the lung bases demonstrate emphysema and mild atelectasis. Calci fied right lung nodules and calcified right hilar lymph nodes are consistent with old granulomatous d isease. There is a chronic 5 mm nodule in left lower lobe, likely benign. No pleural effusion. There is a large old infarct involving the anterior and septal alcaraz and apex of left ventricle of the hear t with apical aneurysm. There are coronary artery calcifications. There is a pacer wire in right vent ricle. No pericardial effusion. Calcifications in the liver and spleen are consistent with old granul omatous disease. There is a 10 mm cyst in the liver. The gallbladder, pancreas, and adrenal glands ar e normal. There is cortical thinning of the kidneys. The prostate is mildly enlarged. 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 There are no dilated loops of bowel. The appendix is no rmal. There is diverticulosis of the colon without evidence of diverticulitis. There are no pathologi monae enlarged lymph nodes. There is no free intraperitoneal fluid. There is a bipolar left hip hemia rthroplasty. There is moderate lumbar spondylosis. IMPRESSION: 1. No specific etiology for blood in stool. 2. Emphysema. 3. 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 4. 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 Reviewed, dictated and finalized at location A.
--- NOTE | ~2020-02-25 | XR_ITS ---
EXAMINATION: XR chest 2V DATE: 02/25/2020 14:38 INDICATION: Shortness of breath. TECHNIQUE: Frontal and lateral views of the chest were obtained on 4 radiographs. COMPARISON: Chest 2 views 02/05/2020, chest CT 11/22/2019 FINDINGS: The lungs are hyperexpanded, consistent with emphysema. No pneumonia, pleural effusion, or pneumothorax. The heart size is normal. There is a left chest pacer/defibrillator with lead in right ventricle. IMPRESSION: 1. Emphysema. Reviewed, dictated and finalized at location A. IMPRESSION: 1. Emphysema.
--- NOTE | 2020-02-25 13:24 | ECG_ITS ---
Measurements Intervals [place] Rate: 84 P: 86 AK: 171 QRS: 75 QRSD: 84 T: 98 QT: 324 QTc: 383 Interpretive Statements SINUS RHYTHM VENTRICULAR PREMATURE COMPLEXES LOW QRS VOLTAGE IN PRECORDIAL LEADS ANTEROSEPTAL INFARCT, AGE INDETERMINATE BORDERLINE T WAVE ABNORMALITY- LAT/HIGH LAT LEADS BASELINE ARTIFACT- I, II, III, AVR, V4-V6 ABNORMAL ECG Electronically Signed On 02-25-2020 13:56:26 CDT by De Alcocer D.O.
--- NOTE | 2020-02-25 13:29 | ED.GIBLEED ---
HPI - GI Bleed General Chief complaint: GI Bleed Stated complaint: 79YO male w/ known h.o O2 dep COPD brought into my ED by ambulance c/o Pooping out bright red blood starting this morning. Patient w/ a known h.o GI bleed on 2 prior occassions doesn't remember where [place] he has gone for this. Related Data Home Medications Medication Instructions Recorded Confirmed carvedilol 6.25 mg PO BID 02/17/20 02/25/20 cholecalciferol (vitamin D3) 25 mcg PO DAILY 02/17/20 02/25/20 [Vitamin D3] potassium chloride 20 meq PO DAILY 02/17/20 02/25/20 sertraline 100 mg PO BID 02/17/20 02/25/20 atorvastatin 40 mg PO QPM 02/25/20 02/25/20 calcium carbonate 500 mg PO DAILY 02/25/20 02/25/20 coenzyme Q10 [Co Q-10] 30 mg PO QPM 02/25/20 02/25/20 cyanocobalamin (vitamin B-12) 1,000 mcg PO DAILY 02/25/20 02/25/20 loratadine [Allergy Relief 10 mg PO DAILY 02/25/20 02/25/20 (loratadine)] sennosides [senna] 8.6 mg PO DAILY 02/25/20 02/25/20 Allergies Allergy/AdvReac Type Severity Reaction Status Date / Time tramadol Allergy Intermediate Hives Verified 03/04/19 13:45 amoxicillin Allergy Mild Rash Verified 03/04/19 13:45 doxycycline Allergy Mild Rash Verified 03/04/19 13:45 latex Allergy Mild Rash Verified 03/04/19 13:45 Review of Systems Review of Systems: All systems reviewed & are unremarkable except as noted in HPI and below Constitutional: Constitutional: Reports as per HPI, Reports no additional constitutional complaints, Denies chills, Denies fever(s) and Reports weakness Eyes: Eyes: Reports as per HPI ENT: Reports system reviewed and no additional complaints, except as documented Cardiovascular: Cardiovascular: Reports as per HPI Respiratory: Respiratory: Reports as per HPI, Denies chest congestion, Denies cough, Reports dyspnea and Denies wheezing Gastrointestinal: Gastrointestinal: Reports as per HPI and Reports diarrhea Comments: Pooping out blood starting this morning Genitourinary: Genitourinary: Reports no additional male genitourinary complaints and Reports as per HPI Musculoskeletal: Musculoskeletal: Reports no additional musculoskeletal complaints Integumentary/Breasts: Skin/Breast: Reports system reviewed and no additional complaints, except as docu Neurologic: Reports system reviewed and no additional complaints, except as documented Psychiatric: Psychiatric: Reports no additional psychiatric complaints Endocrine: Endocrine: Reports no additional endocrine complaints Hematologic/Lymphatic: Hematologic/Lymphatic: Reports as per HPI Allergic/Immunologic: Allergic/Immunologic: Reports no additional allergic/immunologic complaints PMFSH Past Medical History Medical History Cardiomyopathy Fall as cause of accidental injury at home as place of occurrence GERD (gastroesophageal reflux disease) GI bleed Social History Social History Smoking status: Never smoker Alcohol intake: current Drinks per week: 12 Substance use: never Gender identity (if verbalized by the patient): Male Spiritual care concerns: No Exam Const: General: no acute distress Orientation/consciousness: patient oriented x3 HENMT: Head: normal to inspection Eyes: Conjunctivae: conjunctivae normal Pupils: Equal, round and reactive pupils present Neck: Neck: normal visual inspection Chest: Chest palpation & inspection: normal inspection of the chest Resp: Effort & Inspection: labored Auscultation: diminished lung sounds Other: At baseline on 3L O2 via NC Cardio: Rate: regular rate Rhythm: regular rhythm GI: GI Palp: Yes Soft to palpation, No Tenderness to palpation present (GI), No Guarding due to palpation present (GI) and No Rigid due to palpation Auscultation: Hyperactive bowel sounds present Other: Rectal exam revealed bright red blood : Male General Exam: Yes normal external exam Testes: T
[2020-02-25] MEDS: SODIUM CHLORIDE 0.9% IV 1,000 ML 999 ML IV CONT (13:38)
[2020-02-25] MEDS: ONDANSETRON INJ 4 MG/2 ML VIAL IV PUSH (13:38)
[2020-02-25] MEDS: PANTOPRAZOLE SODIUM IV 40 MG VIAL 80 MG IV PUSH (13:39)
[2020-02-25 13:44] LABS: Occult Blood Positive (Negative)
[2020-02-25 13:44] LABS: Basophils Absolute Auto 0.01 K/mm3 (0.00-0.10); Basophils Percent Auto 0.1 % (0.0-1.0); Eosinophils Absolute Auto 0.21 K/mm3 (0.02-0.50); Eosinophils Percent Auto 2.2 % (1.0-6.0); Hematocrit 34.9 % (37.0-46.0); Hemoglobin 11.5 g/dL (12.4-15.3); Immature Granulocyte Absolute 0.04 K/mm3 (0.00-0.00); Immature Granulocyte Percent A 0.4 % (0.0-0.0); Lymphocytes Absolute Auto 0.87 K/mm3 (1.10-4.50); Lymphocytes Percent Auto 9.3 % (18.0-42.0); Mean Corpuscular Hemoglobin 32.6 pg (27.0-31.0); Mean Corpuscular Volume 98.9 fL (78.0-102.0); Monocytes Absolute Auto 0.55 K/mm3 (0.10-0.90); Monocytes Percent Auto 5.9 % (2.0-11.0); Neutrophils Absolute Auto 7.7 K/mm3 (1.7-7.2); Neutrophils Percent Auto 82.1 % (50.0-70.0); Platelet Count Result 283 K/mm3 (150-420); Red Blood Count 3.53 M/mm3 (4.70-6.10); Red Cell Distribution Width 12.1 % (11.6-14.4); White Blood Count 9.4 K/mm3 (4.8-10.8)
[2020-02-25 13:58] LABS: Partial Thromboplastin Time 28.9 SEC (22.3-31.6); Prothrombin Time 10.2 Seconds (9.64-11.0)
[2020-02-25 14:06] LABS: Alanine Aminotransferase 17 U/L (16-63); Albumin Level 3.2 g/dL (3.4-5.0); Alkaline Phosphatase 90 U/L (46-116); Anion Gap 5 mmol/L (8-16); Aspartate Amino Transferase < 10 U/L (15-37); Bilirubin,Total 0.5 mg/dL (0.00-1.00); Blood Urea Nitrogen 8 mg/dL (7-18); Calcium 9.5 mg/dL (8.5-10.1); Carbon Dioxide 29 mmol/L (21-32); Chloride 103 mmol/L (98-108); Estimated CRCL calculation 59 ml/min; Estimated Glomerular Filt Rate > 60; Glucose 110 mg/dL (70-99); Lipase 58 U/L (73-393); Magnesium 2.2 mg/dL (1.8-2.4); Osmolality Calculated 283 mOsm/kg (285-295); Potassium 4.6 mmol/L (3.5-5.1); Sodium 137 mmol/L (136-145); Total Protein 6.5 g/dL (6.4-8.2)
[2020-02-25 14:08] LABS: Troponin I < 0.02 ng/mL (0.00-0.056)
[2020-02-25 14:08] LABS: Ammonia < 10 umol/L (11-32)
[2020-02-25] MEDS: IPRATROPIUM 0.5 MG/ALBUTEROL SULFATE 2.5 MG AMPUL.NEB 3 ML INHALATION (14:40)
--- NOTE | 2020-02-25 14:40 | PC.NURSE ---
Pt returned from Xray, he is very SOB, sat 88% on 3L upon return to room. Increased to 93% with rest, remains on 3L NC. Discussed with Shorty SUAREZ ordered. Will hold off on orthostatic BP due to patient condition.
--- NOTE | 2020-02-25 15:05 | PC.NURSE ---
Patient required transfer, ERP discussed options and patient is requesting [facility]
[2020-02-25] MEDS: LORazepam INJ (*CRX) 2 MG/ML VIAL 1 MG IV PUSH (17:14)
== END 2020-02-25 19:10 | disposition short-term general hospital (02) ==
PROVIDERS: Emergency Provider Family Medicine
DX: J41.0 Simple chronic bronchitis (principal); K92.2 Gastrointestinal hemorrhage, unspecified
CPT/HCPCS: 36415; 71046; 74176; 80053; 82140; 82272; 83690; 83735; 84484; 85025; 85610; 85730; 93005; 94640; 96361; 96374; 96375; 99283; 99285; C9113; J2060; J2405; J7030

== ENCOUNTER 2020-03-19 07:48 | Observation (INO) | payer MEDICARE, OTHER, SELFPAY ==
[2020-03-19] VITALS (13 sets, daily range): BP systolic 105–134; BP diastolic 52–83; PULSE 80–121; RESP 16–22; TEMP 35.9–36.7; O2SAT 97–100; BMI 22.1
--- NOTE | ~2020-03-19 | XR_ITS ---
EXAMINATION: XR chest 1V portable INDICATION: Shortness of breath TECHNIQUE: Portable AP chest at 0838 hours COMPARISON: 02/25/2020 FINDINGS: The lungs are hyperinflated but free of acute opacities. A single lead pacemaker of the lef t chest wall ends with its lead in the right ventricle. There is no pleural effusion or pneumothorax. The heart size is normal. IMPRESSION: 1. Hyperinflation without acute cardiopulmonary abnormality. Reviewed, dictated and finalized at location A. R TECH
--- NOTE | 2020-03-19 07:51 | ECG_ITS ---
Measurements Intervals [place] Rate: 116 P: -75 TN: 209 QRS: 73 QRSD: 86 T: 265 QT: 276 QTc: 384 Interpretive Statements SINUS OR ECTOPIC ATRIAL TACHYCARDIA ANTEROSEPTAL INFARCT, AGE INDETERMINATE BASELINE ARTIFACT- I, II, III, AVR, AVL, AVF, V1-V6 ABNORMAL ECG Electronically Signed On 03-19-2020 9:10:36 [employer] by De Alcocer D.O.
--- NOTE | 2020-03-19 08:08 | ED.SOB ---
HPI - SOB/Dyspnea General Chief Complaint: Shortness of Breath/Dyspnea Stated Complaint: Ambulance Time Seen by Provider: 03/19/20 07:51 Source: patient Mode of arrival: EMS Limitations: no limitations History of Present Illness HPI Narrative: 79-year-old man with a history of coronary artery disease, COPD on 3L O2 at home, and GI bleeds comes in today by EMS complaining of increasing shortness breath over last 3 days. Patient states he has been unable to sleep at nighttime. He has had no fever, productive cough, sick exposures, black or bloody stools, vomiting, sore throat or cold symptoms, or chest pain. Patient states he had some mild nausea this morning. He states his appetite is not very good. He did not eat anything today nor did he take his medications this morning. He had a workup for PE at [facility] within the last week or 2 Which included 2 scans, the 2nd of which was normal. They took him off of oral anticoagulants. MD elicited complaint: shortness of breath Pertinent past history: COPD and congestive heart failure Onset (ago): day(s) (3) Timing: constant Severity: severe Exacerbating factors: nothing Relieving factors: oxygen Known history of: COPD and congestive heart failure Associated symptoms: nausea/vomiting Treatment prior to arrival: oxygen and other (125 mg solumedrol IV) Related Data Home oxygen amount: 3 liters Home Medications Medication Instructions Recorded Confirmed carvedilol 6.25 mg PO BID 02/17/20 03/19/20 cholecalciferol (vitamin D3) 25 mcg PO DAILY 02/17/20 03/19/20 [Vitamin D3] sertraline 100 mg PO BID 02/17/20 03/19/20 atorvastatin 40 mg PO QPM 02/25/20 03/19/20 calcium carbonate 500 mg PO DAILY 02/25/20 03/19/20 coenzyme Q10 [Co Q-10] 30 mg PO QPM 02/25/20 03/19/20 cyanocobalamin (vitamin B-12) 1,000 mcg PO DAILY 02/25/20 03/19/20 loratadine [Allergy Relief 10 mg PO DAILY 02/25/20 03/19/20 (loratadine)] sennosides [senna] 8.6 mg PO DAILY 02/25/20 03/19/20 Allergies Allergy/AdvReac Type Severity Reaction Status Date / Time tramadol Allergy Intermediate Hives Verified 03/04/19 13:45 amoxicillin Allergy Mild Rash Verified 03/04/19 13:45 doxycycline Allergy Mild Rash Verified 03/04/19 13:45 latex Allergy Mild Rash Verified 03/04/19 13:45 Review of Systems Constitutional: Constitutional: Denies chills, Reports fatigue and Denies fever(s) Eyes: Eyes: Reports change in vision and Reports photophobia ENT: Denies dysphagia, Denies nasal congestion and Denies sore throat Cardiovascular: Cardiovascular: Reports chest pain and Reports radiating jaw, neck or arm pain Respiratory: Respiratory: Denies cough, Reports dyspnea and Reports wheezing Gastrointestinal: Gastrointestinal: Denies abdominal pain, Reports nausea and Denies vomiting Genitourinary: Genitourinary: Denies dysuria and Denies urinary frequency Musculoskeletal: Musculoskeletal: Denies arthralgias and Denies joint swelling Integumentary/Breasts: Skin/Breast: Denies pruritus, Denies erythema and Denies rash Neurologic: Denies vertigo, Denies dizziness and Denies syncope Psychiatric: Psychiatric: Reports anxiety Hematologic/Lymphatic: Hematologic/Lymphatic: Denies easy bleeding and Denies easy bruising Allergic/Immunologic: Allergic/Immunologic: Denies lip swelling and Denies tongue swelling PMFSH Past Medical History Medical History Cardiomyopathy COPD (chronic obstructive pulmonary disease) Fall as cause of accidental injury at home as place of occurrence GERD (gastroesophageal reflux disease) GI bleed CHRISTINE and COPD overlap syndrome Surgical History Surgical History History of hemiarthroplasty of left hip Social History Social History Smoking status: Never smoker Alcohol intake: current Drinks per week: 12 Substance use: never Gender
[2020-03-19] MEDS: ALBUTEROL SULFATE (*SP) INHALER 4 PUFF INHALATION (08:15)
[2020-03-19 08:21] LABS: Basophils Absolute Auto 0.03 K/mm3 (0.00-0.10); Basophils Percent Auto 0.4 % (0.0-1.0); Eosinophils Absolute Auto 0.06 K/mm3 (0.02-0.50); Eosinophils Percent Auto 0.8 % (1.0-6.0); Hematocrit 39.8 % (37.0-46.0); Hemoglobin 12.8 g/dL (12.4-15.3); Immature Granulocyte Absolute 0.02 K/mm3 (0.00-0.00); Immature Granulocyte Percent A 0.3 % (0.0-0.0); Lymphocytes Absolute Auto 0.86 K/mm3 (1.10-4.50); Mean Corpuscular HGB Conc 32.2 g/dL (32.0-36.0); Mean Corpuscular Hemoglobin 31.6 pg (27.0-31.0); Mean Corpuscular Volume 98.3 fL (78.0-102.0); Monocytes Absolute Auto 0.33 K/mm3 (0.10-0.90); Monocytes Percent Auto 4.2 % (2.0-11.0); Neutrophils Absolute Auto 6.5 K/mm3 (1.7-7.2); Neutrophils Percent Auto 83.3 % (50.0-70.0); Platelet Count Result 306 K/mm3 (150-420); Red Blood Count 4.05 M/mm3 (4.70-6.10); White Blood Count 7.8 K/mm3 (4.8-10.8)
[2020-03-19 08:26] LABS: Base Excess ABG 1.2 mmol/L (0-2); HCO3 ABG 26.6 mmol/L (23-29); Oxygen Content ABG 20.1 %vol (16.0-22.0); Oxygen Saturation ABG 98.1 % (95-97); Oxyhemoglobin 97.3 % (94-100); PCO2 ABG 45.1 mmHg (35-45); Total Hemoglobin 14.6 g/dL; pH ABG 7.39 (7.35-7.45)
[2020-03-19 08:30] LABS: Device NASAL CANNULA; Modified Allen's Test Pass; Site Drawn LEFT RADIAL
[2020-03-19 08:37] LABS: BNP 122 pg/mL (0-100)
[2020-03-19 08:39] LABS: Alanine Aminotransferase 17 U/L (16-63); Albumin Level 3.8 g/dL (3.4-5.0); Alkaline Phosphatase 67 U/L (46-116); Anion Gap 7 mmol/L (8-16); Aspartate Amino Transferase 17 U/L (15-37); Blood Urea Nitrogen 12 mg/dL (7-18); Calcium 9.3 mg/dL (8.5-10.1); Carbon Dioxide 29 mmol/L (21-32); Chloride 101 mmol/L (98-108); Estimated CRCL calculation 66 ml/min; Estimated Glomerular Filt Rate > 60; Glucose 128 mg/dL (70-99); Osmolality Calculated 285 mOsm/kg (285-295); Potassium 3.9 mmol/L (3.5-5.1); Sodium 137 mmol/L (136-145); Total Protein 7.1 g/dL (6.4-8.2)
[2020-03-19 08:40] LABS: Partial Thromboplastin Time 26.8 SEC (22.3-31.6); Troponin I < 0.02 ng/mL (0.00-0.056)
[2020-03-19 08:41] LABS: D Dimer 0.53 mg/L (0.19-0.50)
[2020-03-19] MEDS: ASPIRIN 81 MG CHEWABLE TABLET PO (08:42)
[2020-03-19] MEDS: ALPRAZolam (*CRX) 0.5 MG TABLET 0.25 MG PO (08:42)
[2020-03-19 09:14] LABS: SARS-CoV-2 Ag Negative (Negative)
--- NOTE | 2020-03-19 10:18 | PC.NURSE ---
pt to floor with nina zambrano per wheelchair. departed with all belongings
--- NOTE | 2020-03-19 10:30 | PC.NURSE ---
Patient brought to floor per wheelchair. Able to stand and transfer from wheelchair to bed. Oriented to room and call light.Patient sitting up on side of bed
--- NOTE | 2020-03-19 10:43 | PM.IMHP ---
H&P: HPI History of Present Illness Date/Time: 03/19/20 10:43 <BACILIO Farias - Last Filed: 03/19/20 11:51> Chief complaint: Ambulance <BACILIO Farias - Last Filed: 03/19/20 11:51> Narrative: Chip Emery is a 79 year old male being admitted today for COPD exacerbation. Patient states that in the recent past about a week or so ago had gone to another hospital for shortness of breath. At that time a CTA was performed and found that he did not have a PE. Patient does have a history of multiple GI bleeds. And as a result he was taken off of his blood thinner at that time. Patient denies any blood in the urine or blood in his stool. <BACILIO Farias - Last Filed: 03/19/20 11:51> Review of Systems Constitutional: Constitutional: Denies chills, Denies difficulty sleeping, Denies excessive sweating, Denies fever(s) and Denies headache(s) <BACILIO Farias - Last Filed: 03/19/20 11:51> Cardiovascular: Cardiovascular: Denies chest pain, Denies chest pain at rest and Denies chest pain with activity <BACILIO Farias - Last Filed: 03/19/20 11:51> Respiratory: Respiratory: Reports dyspnea and Reports dyspnea on exertion <BACILIO Farias - Last Filed: 03/19/20 11:51> Gastrointestinal: Gastrointestinal: Reports as per HPI <BACILIO Farias - Last Filed: 03/19/20 11:51> Genitourinary: Genitourinary: Reports as per HPI <BACILIO Farias - Last Filed: 03/19/20 11:51> Neurologic: Denies vertigo and Denies dizziness <BACILIO Farias - Last Filed: 03/19/20 11:51> PMFSH Past Medical History Medical History: Medical History Cardiomyopathy COPD (chronic obstructive pulmonary disease) Fall as cause of accidental injury at home as place of occurrence GERD (gastroesophageal reflux disease) GI bleed CHRISTINE and COPD overlap syndrome <BACILIO Farias - Last Filed: 03/19/20 11:51> Surgical History Surgical History: Surgical History History of hemiarthroplasty of left hip <BACILIO Farias - Last Filed: 03/19/20 11:51> Social History Social History: Social History Smoking status: Former smoker Tobacco type: cigarettes Alcohol intake: current Drinks per week: 12 Substance use: never Gender identity (if verbalized by the patient): Male Spiritual care concerns: No <BACILIO Farias - Last Filed: 03/19/20 11:51> Meds Home Medications and Allergies Home medications: Home Medications Medication Instructions Recorded Confirmed Type Brovana 2 ml INHALATION BID #50 ml 03/15/19 03/19/20 Rx Combivent Respimat 2 puff INHALATION QID #1 inh 03/15/19 03/19/20 Rx aspirin [Adult Low Dose Aspirin] 81 mg PO DAILY #30 tablet 03/15/19 03/19/20 Rx budesonide [Pulmicort] 0.25 mg INHALATION BID #50 ml 03/15/19 03/19/20 Rx ipratropium-albuterol 3 ml INHALATION Q2-3H PRN #30 neb 03/15/19 03/19/20 Rx lisinopril 2.5 mg PO HS #30 tablet 03/15/19 03/19/20 Rx nitroglycerin [Nitrostat] 0.4 mg SUBLINGUAL USEASDIRECTD #1 03/15/19 03/19/20 Rx pkg pantoprazole 40 mg PO HS #30 tablet 03/15/19 03/19/20 Rx tamsulosin 0.8 mg PO HS #30 cap 03/15/19 03/19/20 Rx alprazolam [Xanax] 0.25 mg PO BID PRN #15 tablet 11/23/19 03/19/20 Rx guaifenesin [Mucus Relief ER] 600 mg PO Q12HR 30 Days #60 tablet 11/23/19 03/19/20 Rx carvedilol 6.25 mg PO BID 02/17/20 03/19/20 History cholecalciferol (vitamin D3) 25 mcg PO DAILY 02/17/20 03/19/20 History [Vitamin D3] sertraline 100 mg PO BID 02/17/20 03/19/20 History atorvastatin 40 mg PO QPM 02/25/20 03/19/20 History calcium carbonate 500 mg PO DAILY 02/25/20 03/19/20 History coenzyme Q10 [Co Q-10] 30 mg PO QPM 02/25/20 03/19/20 History cyanocobalamin (vitamin B-12) 1,000 mcg PO DAILY 02/25/20 03/19/20 History loratadine [Allergy
[2020-03-19] MEDS: IPRATROPIUM 0.5 MG/ALBUTEROL SULFATE 2.5 MG AMPUL.NEB 3 ML INHALATION ×3 (11:24→21:38)
[2020-03-19] MEDS: methylPREDNISolone SOD SUCC 40 MG VIAL IV PUSH ×2 (11:29→21:40)
[2020-03-19 13:17] LABS: Add Urine Microscopic? YES; Appearance Urine Clear (Clear); Bilirubin Urine 1+ (Negative); Blood Urine Negative (Negative); Color Urine Yellow (Yellow); Glucose Urine UA Negative (Negative); Ketones Urine 1+ (Negative); Leukocyte Esterase Ur 1+ LEU/UL (Negative); Nitrate Urine Negative (Negative); Protein Urine Negative (Negative); Urobilinogen Urine 0.2 mg/dL (0.2-1.0)
[2020-03-19 13:22] LABS: Bacteria Urine 1+ /hpf; Mucus Urine Moderate /lpf; RBC Urine 0-2 /hpf (0-2); WBC Urine 16-20 /hpf (0-3)
[2020-03-19] MEDS: SERTRALINE HCL 50 MG TABLET 100 MG PO (16:21)
[2020-03-19] MEDS: carvediloL 6.25 MG TABLET PO (16:21)
[2020-03-19] MEDS: ALPRAZolam (*CRX) 0.25 MG TABLET PO (16:21)
[2020-03-19] MEDS: BUDESONIDE RESPULE NEB 0.25 MG/2 ML AMP INHALATION (16:22)
[2020-03-19] MEDS: ATORVASTATIN 40 MG TABLET PO (17:26)
[2020-03-19] MEDS: lisinopriL 5 MG TABLET 2.5 MG PO (21:39)
[2020-03-19] MEDS: guaiFENesin 12 HR 600 MG TABCR PO (21:39)
[2020-03-19] MEDS: TAMSULOSIN HCL 0.4 MG CAPSULE 0.8 MG PO (21:39)
[2020-03-19] MEDS: PANTOPRAZOLE 40 MG TABLET PO (21:40)
[2020-03-20] VITALS (18 sets, daily range): BP systolic 100–129; BP diastolic 44–71; PULSE 74–96; RESP 14–24; TEMP 35.8–36.4; O2SAT 97–99
[2020-03-20 03:52] LABS: Glucose Point of Care 137 (65-105)
--- NOTE | 2020-03-20 04:26 | PC.NURSE ---
Blood glucose at 0344 was entered in error
[2020-03-20 05:40] LABS: Hematocrit 34.5 % (37.0-46.0); Immature Granulocyte Absolute 0.02 K/mm3 (0.00-0.00); Immature Granulocyte Percent A 0.3 % (0.0-0.0); Lymphocytes Absolute Auto 0.58 K/mm3 (1.10-4.50); Mean Corpuscular HGB Conc 31.9 g/dL (32.0-36.0); Mean Corpuscular Hemoglobin 31.3 pg (27.0-31.0); Monocytes Absolute Auto 0.25 K/mm3 (0.10-0.90); Monocytes Percent Auto 3.4 % (2.0-11.0); Neutrophils Absolute Auto 6.4 K/mm3 (1.7-7.2); Neutrophils Percent Auto 88.3 % (50.0-70.0); Platelet Count Result 250 K/mm3 (150-420); Red Blood Count 3.52 M/mm3 (4.70-6.10); Red Cell Distribution Width 12.2 % (11.6-14.4); White Blood Count 7.3 K/mm3 (4.8-10.8)
[2020-03-20 05:52] LABS: Anion Gap 8 mmol/L (8-16); Blood Urea Nitrogen 16 mg/dL (7-18); Calcium 8.6 mg/dL (8.5-10.1); Carbon Dioxide 27 mmol/L (21-32); Chloride 102 mmol/L (98-108); Estimated CRCL calculation 62 ml/min; Estimated Glomerular Filt Rate > 60; Glucose 138 mg/dL (70-99); Osmolality Calculated 287 mOsm/kg (285-295); Potassium 4.1 mmol/L (3.5-5.1); Sodium 137 mmol/L (136-145)
[2020-03-20] MEDS: IPRATROPIUM 0.5 MG/ALBUTEROL SULFATE 2.5 MG AMPUL.NEB 3 ML INHALATION ×2 (06:40→14:49)
--- NOTE | 2020-03-20 07:32 | PM.IMPN ---
Progress Note: A&P Assessment and Plan (1) Acute dyspnea: Code(s): R06.00 - Dyspnea, unspecified <Darin Bradley BACILIO Gustafson - Last Filed: 03/20/20 10:45> Status: Acute <Darin GustafsonBACILIO - Last Filed: 03/20/20 10:45> Assessment and Plan: 03/19/2020 supplemental oxygen 3 liters/minute, currently mild increased work of breathing, SpO2 98%, ABG shows CO2 at 45.1, D-dimer 0.53 due to multiple GI bleeds anticoagulation is contraindicated 03/20/2020 NC now at 2.5L/min and SpO2 is 98%, Breathing improved, Continue current regiment. <Darin DelgadilloBACILIO Roldan - Last Filed: 03/20/20 10:45> (2) Cardiomyopathy: Qualifiers: Cardiomyopathy type: ischemic Qualified Code(s): I25.5 - Ischemic cardiomyopathy <Darin DelgadilloBACILIO Roldan - Last Filed: 03/20/20 10:45> Code(s): I42.9 - Cardiomyopathy, unspecified <Darin DelgadilloDENAE RoldanC - Last Filed: 03/20/20 10:45> Status: Acute <Darin AtkinsonBACILIO fong - Last Filed: 03/20/20 10:45> Assessment and Plan: 03/19/2020 patient has a pacemaker defibrillator, continue his aspirin and lisinopril along with his atorvastatin, cardiac monitoring 03/20/2020 HR improved and now 70-80s, continue medication as above <Darin DelgadilloBACILIO Roldan - Last Filed: 03/20/20 10:45> (3) COPD exacerbation: Code(s): J44.1 - Chronic obstructive pulmonary disease with (acute) exacerbation <Darin DelgadilloBACILIO Roldan - Last Filed: 03/20/20 10:45> Status: Acute <Darin Bradley BACILIO Gustafson - Last Filed: 03/20/20 10:45> Assessment and Plan: 03/19/2020 guaifenesin, DuoNeb, Solu-Medrol, cardiac monitoring with SpO2 monitoring periodically 98%, incentive spirometer, will consider adding Mucomyst if needed and possibly scheduling his DuoNebs 03/20/2020 Improved but still diminished lung sounds, at this time will not need to add Mucomyst, likely keep him 1 more day and send home with steroid taper <Darin ElieBACILIO Roldan - Last Filed: 03/20/20 10:45> (4) UTI (urinary tract infection): Code(s): N39.0 - Urinary tract infection, site not specified <BACILIO Farias - Last Filed: 03/20/20 10:45> Status: Acute <Darin ElieBACILIO Roldan - Last Filed: 03/20/20 10:45> Assessment and Plan: 03/20/2020 Urine culture pending, blood cultures pending, Levaquin started 03/19/2020, likely send Pt home tomorrow with PO Levaquin to finish course. <BACILIO Farias - Last Filed: 03/20/20 10:45> Subjective Date/time seen: 03/20/20 07:32 Pt states that he is breathing much better this morning. He has his own pulse oximetry and it displays 99% with 3 L/min NC. He admits that he had a difficult time this morning coughing up some thick phlegm. Pt does not have any other complaints at this time. <BACILIO Farias - Last Filed: 03/20/20 10:45> Review of Systems Constitutional: Constitutional: Reports no additional constitutional complaints <BACILIO Farias - Last Filed: 03/20/20 10:45> Cardiovascular: Cardiovascular: Reports no additional cardiovascular complaints <BACILIO Farias - Last Filed: 03/20/20 10:45> Respiratory: Comments: Pt states his breathing had improved only had a difficult time with coughing up some thick phlegm <BACILIO Farias - Last Filed: 03/20/20 10:45> Neurologic: Reports system reviewed and no additional complaints, except as documented <BACILIO Farias - Last Filed: 03/20/20 10:45> Exam Const: General: cooperative, no acute distress, alert, awake and Physically active (sitting bed side) <BACILIO Farias - Last Filed: 03/20/20 10:45> Nutritional Appearance: average body habitus <BACILIO Farias - Last Filed: 03/20/20 10:45> Resp: Effort & Inspection: normal respiratory effort (Much improved since yesterday) <BACILIO Farias - Last Filed: 03/20/20 10:45> Auscultation: diminished lung sounds diffuse (Improved posterior)
[2020-03-20] MEDS: carvediloL 6.25 MG TABLET PO ×2 (08:56→21:29)
[2020-03-20] MEDS: CHOLECALCIFEROL 1,000 UNITS TABLET 1000 UNITS PO (08:56)
[2020-03-20] MEDS: CYANOCOBALAMIN 1,000 MCG TABLET 1000 MCG PO (08:56)
[2020-03-20] MEDS: CALCIUM CARBONATE (OSCAL) 500 MG TABLET PO (08:56)
[2020-03-20] MEDS: SERTRALINE HCL 50 MG TABLET 100 MG PO ×2 (08:56→17:33)
[2020-03-20] MEDS: methylPREDNISolone SOD SUCC 40 MG VIAL IV PUSH ×2 (08:56→21:31)
[2020-03-20] MEDS: ASPIRIN 81 MG ENTERIC TABLET PO (08:57)
[2020-03-20] MEDS: LORATADINE 10 MG TABLET PO (08:57)
[2020-03-20] MEDS: guaiFENesin 12 HR 600 MG TABCR PO ×2 (08:57→21:28)
[2020-03-20] MEDS: BUDESONIDE RESPULE NEB 0.25 MG/2 ML AMP INHALATION ×2 (09:24→16:36)
[2020-03-20] MEDS: ATORVASTATIN 40 MG TABLET PO (17:33)
[2020-03-20] MEDS: PANTOPRAZOLE 40 MG TABLET PO (21:28)
[2020-03-20] MEDS: TAMSULOSIN HCL 0.4 MG CAPSULE 0.8 MG PO (21:28)
[2020-03-20] MEDS: lisinopriL 5 MG TABLET 2.5 MG PO (21:29)
[2020-03-21] VITALS (9 sets, daily range): BP systolic 112–129; BP diastolic 59; PULSE 71–97; RESP 16–22; TEMP 36.1–36.6; O2SAT 98–100
[2020-03-21] MEDS: IPRATROPIUM 0.5 MG/ALBUTEROL SULFATE 2.5 MG AMPUL.NEB 3 ML INHALATION ×2 (02:24→11:46)
[2020-03-21] MEDS: ALPRAZolam (*CRX) 0.25 MG TABLET PO (02:24)
[2020-03-21] MEDS: SENNOSIDES 8.6 MG TABLET PO (02:24)
[2020-03-21 05:49] LABS: Hemoglobin 11.9 g/dL (12.4-15.3); Mean Corpuscular HGB Conc 32.2 g/dL (32.0-36.0); Mean Corpuscular Hemoglobin 31.8 pg (27.0-31.0); Mean Corpuscular Volume 98.9 fL (78.0-102.0); Mean Platelet Volume 9.1 fl (8.7-11.0); Platelet Count Result 289 K/mm3 (150-420); Red Blood Count 3.74 M/mm3 (4.70-6.10); Red Cell Distribution Width 12.3 % (11.6-14.4); White Blood Count 11.5 K/mm3 (4.8-10.8)
[2020-03-21 06:06] LABS: Anion Gap 5 mmol/L (8-16); Blood Urea Nitrogen 17 mg/dL (7-18); Calcium 8.8 mg/dL (8.5-10.1); Carbon Dioxide 30 mmol/L (21-32); Chloride 105 mmol/L (98-108); Estimated CRCL calculation 61 ml/min; Estimated Glomerular Filt Rate > 60; Glucose 142 mg/dL (70-99); Osmolality Calculated 293 mOsm/kg (285-295); Potassium 4.8 mmol/L (3.5-5.1); Sodium 140 mmol/L (136-145)
[2020-03-21] MEDS: BUDESONIDE RESPULE NEB 0.25 MG/2 ML AMP INHALATION (08:37)
[2020-03-21] MEDS: CALCIUM CARBONATE (OSCAL) 500 MG TABLET PO (08:51)
[2020-03-21] MEDS: ASPIRIN 81 MG ENTERIC TABLET PO (08:51)
[2020-03-21] MEDS: CHOLECALCIFEROL 1,000 UNITS TABLET 1000 UNITS PO (08:51)
[2020-03-21] MEDS: SERTRALINE HCL 50 MG TABLET 100 MG PO (08:52)
[2020-03-21] MEDS: methylPREDNISolone SOD SUCC 40 MG VIAL IV PUSH (08:52)
[2020-03-21] MEDS: LORATADINE 10 MG TABLET PO (08:52)
[2020-03-21] MEDS: CYANOCOBALAMIN 1,000 MCG TABLET 1000 MCG PO (08:52)
[2020-03-21] MEDS: guaiFENesin 12 HR 600 MG TABCR PO (08:52)
[2020-03-21] MEDS: carvediloL 6.25 MG TABLET PO (08:56)
--- NOTE | 2020-03-21 11:01 | PM.DS ---
DS: Admitting Diagnosis Admitting Diagnosis Admitting Diagnosis: COPD Exacerbation, Worsening Hypoxia DS: Discharge Diagnosis Discharge Diagnosis (1) Acute dyspnea: Code(s): R06.00 - Dyspnea, unspecified Status: Acute Assessment and Plan: Patient will continue home medication nebulizers and inhaler He was discharged with tapering prednisone Continue supplementary oxygen Patient has an appointment with Dr. Fisher on 03/28 (2) COPD (chronic obstructive pulmonary disease): Qualifiers: COPD type: emphysema Emphysema type: unspecified Qualified Code(s): J43.9 - Emphysema, unspecified Code(s): J44.9 - Chronic obstructive pulmonary disease, unspecified Status: Acute Assessment and Plan: discharged with tapering prednisone Continue supplementary oxygen Patient has an appointment with Dr. Fisher on 03/28 (3) Cardiomyopathy: Qualifiers: Cardiomyopathy type: ischemic Qualified Code(s): I25.5 - Ischemic cardiomyopathy Code(s): I42.9 - Cardiomyopathy, unspecified Status: Acute Assessment and Plan: Patient has a pacemaker/defibrillator Continue his home medication (4) UTI (urinary tract infection): Code(s): N39.0 - Urinary tract infection, site not specified Status: Acute Assessment and Plan: Patient UA with the growth of E. coli sensitive to Levaquin Patient was discharged home with Levaquin 250 mg daily for 30 days for treatment of prostatitis (5) GERD (gastroesophageal reflux disease): Code(s): K21.9 - Gastro-esophageal reflux disease without esophagitis Status: Acute Assessment and Plan: Continue pantoprazole DS: Summary Time Spent with Patient Time attestation: Total time spent providing and/or coordinating discharge services: DS: Data Data Completed and Pending Labs on day of discharge: Labs from last 24 hours 03/21/20 03/21/20 05:21 05:20 WBC 11.5 H RBC 3.74 L Hgb 11.9 L Hct 37.0 MCV 98.9 MCH 31.8 H MCHC 32.2 RDW 12.3 Plt Count 289 MPV 9.1 Sodium 140 Potassium 4.8 Chloride 105 Carbon Dioxide 30 Anion Gap 5 L BUN 17 Creatinine 0.89 Estim Creat Clear Calc 61 Estimated GFR > 60 Glucose 142 H Calculated Osmolality 293 Calcium 8.8 Preliminary micro results at discharge 03/19/20 08:15 Blood Culture - Preliminary Blood 03/19/20 08:15 Blood Culture - Preliminary Blood Discharge Plan Discharge Attending physician on discharge: Jaden Smalls Discharging Clinician: Mele Ivey Anticipated Discharge Date/Time: 03/21/20 09:06 Patient Disposition: Home, Self-Care Activity: as tolerated Diet: regular Discharge Instructions: Follow up with primary care physician in 1-2 weeks. Take medication as prescribed. What are the symptoms of COPD? - At first, COPD often causes no symptoms. As it gets worse it can make you: ?Feel short of breath, especially when you are moving around ?Wheeze (make a whistling or squeaking noise as you breathe) ?Cough and spit up phlegm (mucus) People who have had COPD for a while are also at increased risk for: ?Infections, such as pneumonia ?Lung cancer ?Heart problems Patient Instructions: Antibiotic Form, Levofloxacin (By mouth), Urinary Tract Infection in Men (GEN), Fall Prevention for Older Adults (DC), Chronic Lung Disease and Infection Prevention (DC) Stand Alone Forms: General Discharge Information Follow-up/Referrals: PHYSICIAN NOT ON STAFF,NONSTAFF [Primary Care Provider] - 03/29/20 3:10 pm (Follow up with Dr Fernandes 03/29/2020 at 3:10 ) Discharge Medications: New prednisone 20 mg tablet 20 mg PO DAILY Qty: 21 RF: 0 levofloxacin 250 mg tablet 250 mg PO DAILY 30 Days Qty: 30 RF: 5 Continued ipratropium-albuterol 0.5 mg-3 mg(2.5 mg base)/3 mL Solution For Nebulization 3 ml INHALATION Q2-3H PRN (Reason: Shortn
--- NOTE | 2020-03-21 11:14 | PC.NURSE ---
to dc home, feeling like breating is better, denies needs at this time, ride to be her by 1230 to take patient home
--- NOTE | 2020-03-21 12:30 | PC.NURSE ---
Discharge to home via wheel chair with oxygen on at 3 L NC, reviewed discharge instructions and medications with patient, advised to watch for signs of infection from IV site removal, verbalized understanding to all instructions, as well as plan for f/u with PMD in [place]. personal items returned to patient
--- NOTE | 2020-03-27 10:51 | PC.NURSE ---
Pt states he received and understood his instructions but had to come back because of his symptoms. Pt readmitted.
== END 2020-03-21 12:30 | disposition home or self-care (01) ==
LOC: CHSED 07:52 → CHS2ND 09:43
PROVIDERS: Nurse Practitioner Family; Admitting Provider Emergency Medicine; Emergency Provider Emergency Medicine; Visit Provider Emergency Medicine
DX: J44.1 Chronic obstructive pulmonary disease with (acute) exacerbation (principal); N39.0 Urinary tract infection, site not specified; I50.9 Heart failure, unspecified; I25.10 Atherosclerotic heart disease of native coronary artery without angina pectoris; I42.9 Cardiomyopathy, unspecified; K21.9 Gastro-esophageal reflux disease without esophagitis; G47.33 Obstructive sleep apnea (adult) (pediatric); Z20.828 Contact with and (suspected) exposure to other viral communicable diseases; Z79.82 Long term (current) use of aspirin; Z87.891 Personal history of nicotine dependence; Z95.0 Presence of cardiac pacemaker
CPT/HCPCS: 36415; 36600; 71045; 80048; 80053; 81001; 82805; 83605; 83880; 84484; 85025; 85027; 85380; 85610; 85730; 87040; 87077; 87086; 87088; 87186; 87426; 93005; 94640; 96365; 96366; 96367; 96375; 96376; 99285; A9270; G0378; J1956; J2920

== ENCOUNTER 2020-03-21 22:12 | Inpatient (IN) | payer MEDICARE, OTHER, SELFPAY ==
[2020-03-21] VITALS (7 sets, daily range): BP systolic 130–153; BP diastolic 63–84; PULSE 111–119; RESP 20–24; TEMP 35.9; O2SAT 97–100
--- NOTE | ~2020-03-21 | XR_ITS ---
EXAMINATION: XR chest 2V DATE: 03/21/2020 22:55 INDICATION: COPD presenting with shortness of breath and cough TECHNIQUE: PA and lateral views of the chest were obtained. COMPARISON: Chest radiograph dated 03/19/2020 FINDINGS: Hyperexpansion of the lungs with flattening of the diaphragm consistent with emphysema better appreci ated on prior CT. Calcified right lower lobe nodules consistent with old granulomatous disease. No pn eumonia, pulmonary edema, pleural effusion or pneumothorax. The cardiomediastinal silhouette is blair l. Single lead cardiac pacemaker/AICD with distal tip at the right ventricle. Coronary stenting. Ther e are bridging osteophytes at multiple levels in the spine, consistent with diffuse idiopathic skelet al hyperostosis (DISH). IMPRESSION: 1. Emphysema. No acute cardiopulmonary disease. Reviewed, dictated and finalized at [facility]. [employer] OPERATOR
--- NOTE | 2020-03-21 22:35 | ECG_ITS ---
Measurements Intervals [place] Rate: 113 P: 95 NH: 171 QRS: 73 QRSD: 90 T: 0 QT: 285 QTc: 391 Interpretive Statements SINUS TACHYCARDIA VENTRICULAR PREMATURE COMPLEX ANTEROSEPTAL INFARCT, AGE INDETERMINATE BASELINE ARTIFACT- I, II, III, AVR, AVL, AVF, V4-V6 ABNORMAL ECG Electronically Signed On 03-22-2020 9:02:00 PHARMACEUTICAL SALES SPECIALIST by De Alcocer D.O.
--- NOTE | 2020-03-21 22:39 | ED.SOB ---
HPI - SOB/Dyspnea General Chief Complaint: Shortness of Breath/Dyspnea Stated Complaint: AMB Source: patient Mode of arrival: ambulatory Limitations: no limitations History of Present Illness HPI Narrative: Mr Emery says he has been short of breath since 4mpm today. He says he had a little sputum caught in his throat and could not get it up. This was associated with some moderately severe anxiety, and the preception he was becoming more short of breath. Taking a nebulizer at home did not seem to help this get any better. Pertinent past history: COPD Context: anxiety Severity: moderate Exacerbating factors: other (being alone) Associated symptoms: denies other symptoms Related Data Home Medications Medication Instructions Recorded Confirmed carvedilol 6.25 mg PO BID 02/17/20 03/21/20 cholecalciferol (vitamin D3) 25 mcg PO DAILY 02/17/20 03/21/20 [Vitamin D3] sertraline 100 mg PO BID 02/17/20 03/21/20 atorvastatin 40 mg PO QPM 02/25/20 03/21/20 calcium carbonate 500 mg PO DAILY 02/25/20 03/21/20 coenzyme Q10 [Co Q-10] 30 mg PO QPM 02/25/20 03/21/20 cyanocobalamin (vitamin B-12) 1,000 mcg PO DAILY 02/25/20 03/21/20 loratadine [Allergy Relief 10 mg PO DAILY 02/25/20 03/21/20 (loratadine)] senna 8.6 mg PO DAILY 02/25/20 03/21/20 Allergies Allergy/AdvReac Type Severity Reaction Status Date / Time tramadol Allergy Intermediate Hives Verified 03/04/19 13:45 amoxicillin Allergy Mild Rash Verified 03/04/19 13:45 doxycycline Allergy Mild Rash Verified 03/04/19 13:45 latex Allergy Mild Rash Verified 03/04/19 13:45 Review of Systems Review of Systems: Narrative: He stated he became short of breath at home today about 4pm, associated with being alone at home, with anxiety. Using his inhaler and then later his nebulizer did not seem to help much. Nebulizer was last used at about 4pm he says. All systems reviewed & are unremarkable except as noted in HPI and below Constitutional: Constitutional: Reports no additional constitutional complaints Eyes: Eyes: Reports no additional eye complaints ENT: Reports system reviewed and no additional complaints, except as documented Cardiovascular: Cardiovascular: Reports no additional cardiovascular complaints Respiratory: Respiratory: Reports no additional respiratory complaints Gastrointestinal: Gastrointestinal: Reports no additional gastrointestinal complaints Genitourinary: Genitourinary: Reports no additional male genitourinary complaints Musculoskeletal: Musculoskeletal: Reports no additional musculoskeletal complaints Integumentary/Breasts: Skin/Breast: Reports system reviewed and no additional complaints, except as docu Neurologic: Reports system reviewed and no additional complaints, except as documented Psychiatric: Psychiatric: Reports no additional psychiatric complaints Endocrine: Endocrine: Reports no additional endocrine complaints Hematologic/Lymphatic: Hematologic/Lymphatic: Reports no additional hematologic/lymphatic complaints Allergic/Immunologic: Allergic/Immunologic: Reports no additional allergic/immunologic complaints PMFSH Past Medical History Medical History Cardiomyopathy COPD (chronic obstructive pulmonary disease) Fall as cause of accidental injury at home as place of occurrence GERD (gastroesophageal reflux disease) GI bleed CHRISTINE and COPD overlap syndrome Surgical History Surgical History History of hemiarthroplasty of left hip Social History Social History Smoking status: Former smoker Tobacco type: cigarettes Alcohol intake: current Drinks per week: 12 Substance use: never Gender identity (if verbalized by the patient): Male Spiritual care concerns: No Exam Const: General: no acute distress HENMT: Head: normal to inspection Ears: external ears normal and T
[2020-03-21] MEDS: IPRATROPIUM 0.5 MG/ALBUTEROL SULFATE 2.5 MG AMPUL.NEB 3 ML INHALATION (22:56)
[2020-03-21] MEDS: methylPREDNISolone SOD SUCC 125 MG VIAL IV PUSH (22:56)
[2020-03-21 23:18] LABS: Base Excess ABG -0.8 mmol/L (0-2); Oxygen Content ABG 18.2 %vol (16.0-22.0); Oxygen Saturation ABG 98.3 % (95-97); Oxyhemoglobin 97.6 % (94-100); PCO2 ABG 59.1 mmHg (35-45); PO2 ABG 134.2 mmHg (75-85); Total Hemoglobin 13.1 g/dL; pH ABG 7.28 (7.35-7.45)
[2020-03-21 23:22] LABS: Modified Allen's Test Pass; Site Drawn RIGHT BRACHIAL
[2020-03-21 23:23] LABS: Device NASAL CANNULA
[2020-03-21 23:38] LABS: Troponin I 0.04 ng/mL (0.00-0.056)
[2020-03-21 23:56] LABS: BNP 144 pg/mL (0-100)
[2020-03-22] VITALS (22 sets, daily range): BP systolic 92–138; BP diastolic 51–66; PULSE 64–112; RESP 16–26; TEMP 36.2–36.9; O2SAT 91–100; BMI 23.2
--- NOTE | 2020-03-22 00:41 | PC.NURSE ---
pt transported to floor per stretcher with GREGORY Valadez and security Wade. pt alert and oriented. shortness of breath continues with any exertion.
[2020-03-22] MEDS: ALPRAZolam (*CRX) 0.25 MG TABLET PO ×3 (01:52→21:06)
--- NOTE | 2020-03-22 03:01 | PC.NURSE ---
Pt asleep with his head on the bedside table; SAO2 is 99% with oxygen on at 3 liters per nasal cannula. No signs of respiratory distress noted.
--- NOTE | 2020-03-22 03:07 | PC.NURSE ---
Pt to the floor per stretcher and continues to be short of breath. Pt assisted into bed and oxygen on at 3 liters per nasal cannula. ekg monitor on as ordered.
--- NOTE | 2020-03-22 03:37 | PC.NURSE ---
Addendum entered by Allyson Rizo RN 03/22/20 03:42: incorrect time; Time should be 0152 Addendum entered by Allyson Rizo RN 03/22/20 03:41: Wrong time Original Note: Pt c/o not being able to sleep. Pt given xanax 0.25 mg po to relieve restlessness.
[2020-03-22] MEDS: IPRATROPIUM 0.5 MG/ALBUTEROL SULFATE 2.5 MG AMPUL.NEB 3 ML INHALATION ×2 (05:20→20:09)
--- NOTE | 2020-03-22 05:20 | PC.NURSE ---
Pt called and said no one was helping or doing anything for him. I asked him how wh could help him and he pointed to his chest and said fix this . He said he has been coughing up sputum and states there is 'something wrong in here'. Offered pt a breathing treatment which he was agreeable to taking. Pt given a duoneb treatment which he tolerated well.
--- NOTE | 2020-03-22 06:52 | PC.NURSE ---
Pt given methylprednisolone 60 mg IVP as ordered.
[2020-03-22] MEDS: methylPREDNISolone SOD SUCC 125 MG VIAL 60 MG IV PUSH ×3 (06:54→23:37)
[2020-03-22 07:45] LABS: Magnesium 2.2 mg/dL (1.8-2.4)
[2020-03-22 07:48] LABS: Troponin I 0.07 ng/mL (0.00-0.056)
--- NOTE | 2020-03-22 07:48 | PC.NURSE ---
Kirk Ivey [employer]ESSER informed of troponin of 0.07.
[2020-03-22] MEDS: BUDESONIDE RESPULE NEB 0.25 MG/2 ML AMP INHALATION ×2 (09:02→17:07)
[2020-03-22] MEDS: CYANOCOBALAMIN 1,000 MCG TABLET 1000 MCG PO (09:27)
[2020-03-22] MEDS: CHOLECALCIFEROL 1,000 UNITS TABLET 1000 UNITS PO (09:27)
[2020-03-22] MEDS: ENOXAPARIN 40 MG/0.4 ML SYRINGE SUB-Q (09:27)
[2020-03-22] MEDS: SENNOSIDES 8.6 MG TABLET PO (09:27)
[2020-03-22] MEDS: LORATADINE 10 MG TABLET PO (09:28)
[2020-03-22] MEDS: SERTRALINE HCL 50 MG TABLET 100 MG PO ×2 (09:28→16:59)
[2020-03-22] MEDS: ASPIRIN 81 MG ENTERIC TABLET PO (09:28)
[2020-03-22] MEDS: DOCUSATE SODIUM 100 MG CAPSULE PO ×2 (09:28→21:05)
[2020-03-22] MEDS: CALCIUM CARBONATE (OSCAL) 500 MG TABLET PO (09:29)
[2020-03-22] MEDS: carvediloL 6.25 MG TABLET PO ×2 (09:31→21:05)
[2020-03-22 11:44] LABS: Troponin I 0.07 ng/mL (0.00-0.056)
--- NOTE | 2020-03-22 12:24 | PM.IMHP ---
H&P: HPI History of Present Illness Date/Time: 03/22/20 12:24 <BAILEY Vegas - Last Filed: 03/22/20 12:46> Chief complaint: COPD PULMONARY HYPERTENSION <BAILEY Vegas - Last Filed: 03/22/20 12:46> Narrative: Chip Emery is a 79 year old male that presented to the ED on 1720 after being discharged on 03/21/2020. Patient was previously admitted for COPD excerbation. Patient has a past medical history of severe COPD, cardiomyopathy, GERD, GI bleed, CHRISTINE and COPD overlap syndrome. According to patient after being discharged yesterday he returned home and sat around for little bit and he attempted to get up to do a few chores, while he was washing dishes he noted that he became extremely short of breath. Patient noted that his nebulizers nor inhalers helped so he returned back to the ED. Patient blood gas did worsen from previous admission. Patient does have a l labored breathing with pursed lip breathing. we will keep patient for a couple of days to treat with antibiotics, steroids and breathing treatments. Patient does have an appointment with Dr. Fisher on 03/25/2020. He will possibly have to have a home O2 evaluation due to increased oxygen use. The patient denies CP, palpitation, extremity numbness, lightheadedness, dizziness, constipation, diarrhea, chills, or fever. <BAILEY Vegas - Last Filed: 03/22/20 12:46> Review of Systems Review of Systems: All systems reviewed & are unremarkable except as noted in HPI and below (10 point system review) <BAILEY Vegas - Last Filed: 03/22/20 12:46> [facility] Past Medical History Medical History: Medical History Cardiomyopathy COPD (chronic obstructive pulmonary disease) Fall as cause of accidental injury at home as place of occurrence GERD (gastroesophageal reflux disease) GI bleed CHRISTINE and COPD overlap syndrome <BAILEY Vegas - Last Filed: 03/22/20 12:46> Surgical History Surgical History: Surgical History History of hemiarthroplasty of left hip <DEANDRA Vegas-Rupal - Last Filed: 03/22/20 12:46> Social History Social History: Social History Smoking status: Former smoker Tobacco type: cigarettes Second hand tobacco smoke exposure: Yes Smoking end date: 03/14/18 Alcohol intake: former Drinks per week: 2 Substance use: never Substance use type: does not use Gender identity (if verbalized by the patient): Male Sexual Orientation (if Verbalized by the Patient): Straight or Heterosexual Spiritual care concerns: No <BAILEY Vegas - Last Filed: 03/22/20 12:46> Meds Home Medications and Allergies Home medications: Home Medications Medication Instructions Recorded Confirmed Type Brovana 2 ml INHALATION BID #50 ml 03/15/19 03/21/20 Rx Combivent Respimat 2 puff INHALATION QID #1 inh 03/15/19 03/21/20 Rx aspirin [Adult Low Dose Aspirin] 81 mg PO DAILY #30 tablet 03/15/19 03/21/20 Rx budesonide [Pulmicort] 0.25 mg INHALATION BID #50 ml 03/15/19 03/21/20 Rx ipratropium-albuterol 3 ml INHALATION Q2-3H PRN #30 neb 03/15/19 03/21/20 Rx lisinopril 2.5 mg PO HS #30 tablet 03/15/19 03/21/20 Rx nitroglycerin [Nitrostat] 0.4 mg SUBLINGUAL USEASDIRECTD #1 03/15/19 03/21/20 Rx pkg pantoprazole 40 mg PO HS #30 tablet 03/15/19 03/21/20 Rx tamsulosin 0.8 mg PO HS #30 cap 03/15/19 03/21/20 Rx alprazolam [Xanax] 0.25 mg PO BID PRN #15 tablet 11/23/19 03/21/20 Rx guaifenesin [Mucus Relief ER] 600 mg PO Q12HR 30 Days #60 tablet 11/23/19 03/21/20 Rx carvedilol 6.25 mg PO BID 02/17/20 03/21/20 History cholecalciferol (vitamin D3) 25 mcg PO DAILY 02/17/20 03/21/20 History [Vitamin D3] sertraline 100 mg PO BID 02/17/20 03/21/20 History atorvastatin 40 mg PO QPM 02/25/20 03/21/20 History calcium carbonate 500 mg PO DAILY
[2020-03-22] MEDS: ACETAMINOPHEN 325 MG TABLET 650 MG PO (12:25)
--- NOTE | 2020-03-22 16:34 | PC.NURSE ---
hafsa rowland in to speak with pt, pt asks about more xanax, informed he can't have more until 1830, hr of 88
[2020-03-22] MEDS: ATORVASTATIN 40 MG TABLET PO (16:59)
[2020-03-22] MEDS: TAMSULOSIN HCL 0.4 MG CAPSULE 0.8 MG PO (21:05)
[2020-03-22] MEDS: PANTOPRAZOLE 40 MG TABLET PO (21:05)
[2020-03-22] MEDS: traZODone HCL 50 MG TABLET PO (21:06)
[2020-03-23] VITALS (22 sets, daily range): BP systolic 98–151; BP diastolic 50–65; PULSE 63–96; RESP 16–26; TEMP 36.3–36.9; O2SAT 97–100
[2020-03-23] MEDS: methylPREDNISolone SOD SUCC 125 MG VIAL 60 MG IV PUSH ×3 (06:01→23:37)
[2020-03-23] MEDS: IPRATROPIUM 0.5 MG/ALBUTEROL SULFATE 2.5 MG AMPUL.NEB 3 ML INHALATION ×4 (07:55→19:29)
--- NOTE | 2020-03-23 08:06 | ECHO_ITS ---
Patient Info Name: Chip Emery Age: 79 years : 1940 Gender: Male Ht: 71 in Wt: 166 lbs BSA: 1.94 m2 HR: 72 bpm BP: 151 / 65 mmHg Heart Rhythm: Sinus Rhythm Technical Quality: Fair Exam Date: 03/23/2020 8:24 AM Exam Location: [facility] Patient Status: Inpatient Admit Date: 03/22/2020 Staff Ordering Physician: Mele Ivey Senior Credit Analyst: Hortensia Trotter RDCS Attending Provider: Jaden Smalls MD Referring Physician: Uche JAMA; Exam Type: CA echo doppler color flow Study Info Indications R06.02 - Shortness of breath Complete two-dimensional, color flow and Doppler transthoracic echocardiogram is performed. History/Risk Factors Hypertension: No Dyslipidemia: No Congenital Heart Disease (CHD): No Myocardial Infarction (CT): No Chronic Lung Disease: No Obesity: No Renal Disease: No Congestive Heart Failure (CHF): No Cardiomyopathy/LV Systolic Dysfunction: Yes Diabetes Mellitus: No COPD: On Meds Tobacco Use: Former Cerebrovascular Disease: No Deep Vein Thrombosis (DVT): None Dialysis: None Frailty Scale (CSHA): 4: Vulnerable Cardiac Arrest: No Prior Interventions Pacemaker: Yes Summary 1. Complete two-dimensional, color flow and Doppler transthoracic echocardiogram is performed. 2. Left ventricular chamber dimension is severely enlarged. 3. Mid to apical septum is thin and akinetic. Mid to apical anterior wall and apex are akinetic. 4. Left ventricular systolic function is severely reduced, estimated at 30-35%. 5. The left ventricular diastolic function is grade I diastolic dysfunction. 6. E/e' 10 is mildly elevated. 7. Linear artifact in right ventricle suggestive of catheter(s), pacemaker lead(s), or ICD lead(s). 8. Linear artifact in the right atrium suggestive of catheter(s), pacemaker lead(s), or ICD lead(s). 9. There is mild aortic valve sclerosis. 10. There is mild aortic valve regurgitation. 11. The mitral valve has mildly calcified annulus. 12. There is moderate mitral valve regurgitation. 13. There is mild tricuspid valve regurgitation. 14. Small atheroma in anterior and posterior aortic root. Left Ventricle E/e' 10 is mildly elevated. Mid to apical septum is thin and akinetic. Mid to apical anterior wall and apex are akinetic. Left ventricular chamber dimension is severely enlarged. Left ventricular systolic function is severely reduced, estimated at 30-35%. The left ventricular diastolic function is grade I diastolic dysfunction. Right Ventricle Linear artifact in right ventricle suggestive of catheter(s), pacemaker lead(s), or ICD lead(s). Right ventricular chamber dimension is normal. Right ventricular systolic function is normal. Left Atria Left atrial chamber dimension is normal. Right Atria Linear artifact in the right atrium suggestive of catheter(s), pacemaker lead(s), or ICD lead(s). Right atrial chamber dimension is normal. Aortic Valve The aortic valve is trileaflet. There is mild aortic valve sclerosis. There is no aortic valve stenosis. There is mild aortic valve regurgitation. Pulmonic Valve There is no pulmonic regurgitation. Mitral Valve The mitral valve has mildly calcified annulus. There is no mitral valve stenosis. There is moderate mitral valve regurgitation. Tricuspid Valve There is trace tricuspid valve regurgitation. RVSP is not calculated due to an inadequate TR jet.
--- NOTE | 2020-03-23 09:00 | PC.NURSE ---
Patient receiving ECHO
[2020-03-23] MEDS: BUDESONIDE RESPULE NEB 0.25 MG/2 ML AMP INHALATION ×2 (09:13→16:34)
[2020-03-23] MEDS: ASPIRIN 81 MG ENTERIC TABLET PO (09:14)
[2020-03-23] MEDS: SERTRALINE HCL 50 MG TABLET 100 MG PO ×2 (09:14→16:30)
[2020-03-23] MEDS: SENNOSIDES 8.6 MG TABLET PO (09:15)
[2020-03-23] MEDS: CYANOCOBALAMIN 1,000 MCG TABLET 1000 MCG PO (09:15)
[2020-03-23] MEDS: DOCUSATE SODIUM 100 MG CAPSULE PO ×2 (09:15→21:21)
[2020-03-23] MEDS: LORATADINE 10 MG TABLET PO (09:15)
[2020-03-23] MEDS: lisinopriL 5 MG TABLET 2.5 MG PO (09:15)
[2020-03-23] MEDS: CALCIUM CARBONATE (OSCAL) 500 MG TABLET PO (09:15)
[2020-03-23] MEDS: carvediloL 6.25 MG TABLET PO ×2 (09:16→21:20)
[2020-03-23] MEDS: CHOLECALCIFEROL 1,000 UNITS TABLET 1000 UNITS PO (09:16)
[2020-03-23 09:26] LABS: Hematocrit 36.2 % (37.0-46.0); Hemoglobin 11.6 g/dL (12.4-15.3); Mean Corpuscular Hemoglobin 31.7 pg (27.0-31.0); Mean Corpuscular Volume 98.9 fL (78.0-102.0); Mean Platelet Volume 9.2 fl (8.7-11.0); Platelet Count Result 281 K/mm3 (150-420); Red Blood Count 3.66 M/mm3 (4.70-6.10); Red Cell Distribution Width 12.2 % (11.6-14.4); White Blood Count 7.9 K/mm3 (4.8-10.8)
--- NOTE | 2020-03-23 10:17 | WPDPN ---
Progress Note: A&P Assessment and Plan (1) Acute dyspnea: Code(s): R06.00 - Dyspnea, unspecified Status: Acute Assessment and Plan: Secondary to COPD exacerbation Referred to COPD Continue supplementary oxygen Patient has an appointment with Dr. Fisher on 03/28 Patient may require more oxygen will complete a home O2 eval (2) COPD (chronic obstructive pulmonary disease): Code(s): J44.9 - Chronic obstructive pulmonary disease, unspecified Status: Acute Assessment and Plan: Continue Solu-Medrol with Levaquin and nebulizers Continue supplementary oxygen Patient has an appointment with Dr. Fisher on 03/28 (3) Cardiomyopathy: Qualifiers: Cardiomyopathy type: ischemic Qualified Code(s): I25.5 - Ischemic cardiomyopathy Code(s): I42.9 - Cardiomyopathy, unspecified Status: Acute Assessment and Plan: Patient has a pacemaker/defibrillator Continue his home medication (4) UTI (urinary tract infection): Code(s): N39.0 - Urinary tract infection, site not specified Status: Acute Assessment and Plan: Patient UA with the growth of E. coli sensitive to Levaquin Continue Levaquin (5) GERD (gastroesophageal reflux disease): Code(s): K21.9 - Gastro-esophageal reflux disease without esophagitis Status: Acute Assessment and Plan: Continue pantoprazole in times (6) GI bleed: Qualifiers: GI bleed type/associated pathology: unspecified gastrointestinal hemorrhage type Qualified Code(s): K92.2 - Gastrointestinal hemorrhage, unspecified Code(s): K92.2 - Gastrointestinal hemorrhage, unspecified Status: Acute Assessment and Plan: Review of Systems Review of Systems: All systems reviewed & are unremarkable except as noted in HPI and below (10 point system review) Exam Narrative: Exam Narrative: GENERAL: This is a well-nourished, well-developed patient, in no apparent distress. HEAD: normocephalic, atraumatic. EYES: PERRL. Sclera clear/white. Vision is grossly intact. EARS: External ears normal, auditory canals clear and without drainage, TMs normal without perforation. Hearing grossly intact. NOSE: External nose normal with no obvious nasal discharge, nares without redness, no rhinorrhea. THROAT: Mucous membranes moist, posterior pharynx clear. NECK: Neck supple, non-tender without lymphadenopathy, masses or thyromegaly. CARDIOVASCULAR: Paced RESPIRATORY: Diminished breath sounds GASTROINTESTINAL: Abdomen soft, non-tender, nondistended. Bowel sounds are active. No hepato-splenomegaly, or palpable masses. No guarding. SKIN: warm, intact with no suspicious lesions or rash, good texture and turgor. NEURO: awake, alert, and oriented to person, place and time. There were no obvious focal neurologic abnormalities. Steady gait EXTREMITIES: Normal range of motion. No edema. No calf tenderness. Negative Homans sign bilaterally. Right digit amputation BACK: Nontender without deformity or crepitance. No flank tenderness. Objective Data Vital Signs Vital Signs: Vital Signs - 24 hr 03/22/20 12:00 03/22/20 15:45 03/22/20 17:07 Temperature 98.2 F 97.4 F L Pulse Rate 100 88 74 Respiratory Rate 26 H 24 H 16 Blood Pressure 124/54 L 131/59 L Pulse Oximetry 97 100 98 03/22/20 17:15 03/22/20 19:12 03/22/20 19:22 Temperature Pulse Rate 95 76 Respiratory Rate 18 Blood Pressure Pulse Oximetry 99 99 03/22/20 19:53 03/22/20 20:09 03/22/20 20:17 Temperature 97.6 F Pulse Rate 89 86 80 Respiratory Rate 20 18 18 Blood Pressure 131/52 L Pulse Oximetry 99 98 99 03/22/20 21:05 03/22/20 23:47 03/23/20 03:51 Temperature 97.6 F 97.6 F Pulse Rate 88 64 71 Respiratory Rate 18 16 Blood Pressure 114/51 L 118/57 L Pulse Oximetry 100 99 03/23/20 07:55 03/23/20 07:56 03/23/20 07:57 Temperature 97.9 F Pulse Rate 91 92 63 Respiratory Rate 20 26 H Blood Pressure 151/65 H
[2020-03-23 10:22] LABS: Alanine Aminotransferase 18 U/L (16-63); Albumin Level 3.7 g/dL (3.4-5.0); Alkaline Phosphatase 60 U/L (46-116); Anion Gap 6 mmol/L (8-16); Aspartate Amino Transferase < 10 U/L (15-37); Bilirubin,Total 0.9 mg/dL (0.00-1.00); Blood Urea Nitrogen 16 mg/dL (7-18); Calcium 9.1 mg/dL (8.5-10.1); Carbon Dioxide 33 mmol/L (21-32); Chloride 103 mmol/L (98-108); Estimated CRCL calculation 73 ml/min; Estimated Glomerular Filt Rate > 60; Glucose 135 mg/dL (70-99); Osmolality Calculated 297 mOsm/kg (285-295); Potassium 4.1 mmol/L (3.5-5.1); Sodium 142 mmol/L (136-145); Total Protein 6.3 g/dL (6.4-8.2)
[2020-03-23] MEDS: ALPRAZolam (*CRX) 0.5 MG TABLET PO (10:36)
[2020-03-23] MEDS: guaiFENesin 12 HR 600 MG TABCR 1200 MG PO ×2 (12:46→21:21)
[2020-03-23] MEDS: BENZONATATE 100 MG CAPSULE 200 MG PO (12:46)
[2020-03-23] MEDS: ATORVASTATIN 40 MG TABLET PO (16:30)
[2020-03-23] MEDS: TAMSULOSIN HCL 0.4 MG CAPSULE 0.8 MG PO (21:20)
[2020-03-23] MEDS: PANTOPRAZOLE 40 MG TABLET PO (21:21)
[2020-03-24] VITALS (9 sets, daily range): BP systolic 115–143; BP diastolic 58–59; PULSE 70–92; RESP 20–22; TEMP 36.3–36.4; O2SAT 93–100
--- NOTE | 2020-03-24 00:31 | PC.NURSE ---
Sleeping, no distress noted. Skin pink, respirations easy/unlabored.
[2020-03-24] MEDS: IPRATROPIUM 0.5 MG/ALBUTEROL SULFATE 2.5 MG AMPUL.NEB 3 ML INHALATION ×2 (01:25→11:28)
--- NOTE | 2020-03-24 02:45 | PC.NURSE ---
Sleeping, no further complaints of shortness of breath. Respirations easy/unlabored.
[2020-03-24] MEDS: methylPREDNISolone SOD SUCC 125 MG VIAL 60 MG IV PUSH (06:20)
[2020-03-24] MEDS: ASPIRIN 81 MG ENTERIC TABLET PO (08:34)
[2020-03-24] MEDS: guaiFENesin 12 HR 600 MG TABCR 1200 MG PO (08:35)
[2020-03-24] MEDS: SERTRALINE HCL 50 MG TABLET 100 MG PO (08:35)
[2020-03-24] MEDS: SENNOSIDES 8.6 MG TABLET PO (08:35)
[2020-03-24] MEDS: CALCIUM CARBONATE (OSCAL) 500 MG TABLET PO (08:35)
[2020-03-24] MEDS: lisinopriL 5 MG TABLET 2.5 MG PO (08:35)
[2020-03-24] MEDS: ALPRAZolam (*CRX) 0.5 MG TABLET PO (08:35)
[2020-03-24] MEDS: CHOLECALCIFEROL 1,000 UNITS TABLET 1000 UNITS PO (08:35)
[2020-03-24] MEDS: DOCUSATE SODIUM 100 MG CAPSULE PO (08:35)
[2020-03-24] MEDS: LORATADINE 10 MG TABLET PO (08:35)
[2020-03-24] MEDS: CYANOCOBALAMIN 1,000 MCG TABLET 1000 MCG PO (08:35)
[2020-03-24] MEDS: carvediloL 6.25 MG TABLET PO (08:36)
[2020-03-24] MEDS: BUDESONIDE RESPULE NEB 0.25 MG/2 ML AMP INHALATION (08:38)
--- NOTE | 2020-03-24 11:35 | PM.DS ---
DS: Admitting Diagnosis Admitting Diagnosis Admitting Diagnosis: COPD PULMONARY HYPERTENSION DS: Discharge Diagnosis Discharge Diagnosis (1) Acute dyspnea: Code(s): R06.00 - Dyspnea, unspecified Status: Acute Assessment and Plan: Secondary to COPD exacerbation Referred to COPD Continue supplementary oxygen Patient has an appointment with Dr. Fisher on 03/28 (2) COPD (chronic obstructive pulmonary disease): Code(s): J44.9 - Chronic obstructive pulmonary disease, unspecified Status: Acute Assessment and Plan: Continue Solu-Medrol with Levaquin and nebulizers Continue supplementary oxygen Patient has an appointment with Dr. Fisher on 03/28 (3) Cardiomyopathy: Qualifiers: Cardiomyopathy type: ischemic Qualified Code(s): I25.5 - Ischemic cardiomyopathy Code(s): I42.9 - Cardiomyopathy, unspecified Status: Acute Assessment and Plan: Patient has a pacemaker/defibrillator Continue his home medication Call patient's primary care physician Dr. Fernandes nurse informed that patient complete a echo here that has not been read and they would have to request record and discuss finding with patent (4) UTI (urinary tract infection): Code(s): N39.0 - Urinary tract infection, site not specified Status: Acute Assessment and Plan: Patient UA with the growth of E. coli sensitive to Levaquin Continue Levaquin for 1 month for prostatitis (5) GERD (gastroesophageal reflux disease): Code(s): K21.9 - Gastro-esophageal reflux disease without esophagitis Status: Acute Assessment and Plan: Continue pantoprazole in times (6) GI bleed: Qualifiers: GI bleed type/associated pathology: unspecified gastrointestinal hemorrhage type Qualified Code(s): K92.2 - Gastrointestinal hemorrhage, unspecified Code(s): K92.2 - Gastrointestinal hemorrhage, unspecified Status: Acute Assessment and Plan: no actively bleeding DS: Summary Time Spent with Patient Time attestation: Total time spent providing and/or coordinating discharge services: Exam Narrative: Exam Narrative: GENERAL: This is a well-nourished, well-developed patient, in no apparent distress. HEAD: normocephalic, atraumatic. EYES: PERRL. Sclera clear/white. Vision is grossly intact. EARS: External ears normal, auditory canals clear and without drainage, TMs normal without perforation. Hearing grossly intact. NOSE: External nose normal with no obvious nasal discharge, nares without redness, no rhinorrhea. THROAT: Mucous membranes moist, posterior pharynx clear. NECK: Neck supple, non-tender without lymphadenopathy, masses or thyromegaly. CARDIOVASCULAR: Paced RESPIRATORY: Diminished breath sounds but improved GASTROINTESTINAL: Abdomen soft, non-tender, nondistended. Bowel sounds are active. No hepato-splenomegaly, or palpable masses. No guarding. SKIN: warm, intact with no suspicious lesions or rash, good texture and turgor. NEURO: awake, alert, and oriented to person, place and time. There were no obvious focal neurologic abnormalities. Steady gait EXTREMITIES: Normal range of motion. No edema. No calf tenderness. Negative Homans sign bilaterally. Right digit amputation BACK: Nontender without deformity or crepitance. No flank tenderness. Discharge Plan Discharge Attending physician on discharge: Scott Salguero Discharging Clinician: Mele Ivey Anticipated Discharge Date/Time: 03/24/20 07:11 Patient Disposition: Home, Self-Care Activity: as tolerated Diet: heart healthy Discharge Instructions: Follow up with your regular appointment Take medication as prescribed. What are the symptoms of COPD? - At first, COPD often causes no symptoms. As it gets worse it can make you: ?Feel short of breath, especially when you are moving around ?Wheeze (make a whistling or squeaking noise as you breathe) ?Cough and spit up phlegm
--- NOTE | 2020-03-27 11:00 | PC.NURSE ---
Pt stated he received his discharge instructions and understood them. He had no other comments.
== END 2020-03-24 11:45 | disposition home or self-care (01) | DRG 191 ==
LOC: CHSED 22:16 → CHS2ND 03-22 00:55
PROVIDERS: Nurse Practitioner; Admitting Provider Emergency Medicine; Emergency Provider Emergency Medicine; Visit Provider Emergency Medicine
DX: J44.1 Chronic obstructive pulmonary disease with (acute) exacerbation (principal); I42.9 Cardiomyopathy, unspecified; N39.0 Urinary tract infection, site not specified; I08.3 Combined rheumatic disorders of mitral, aortic and tricuspid valves; K21.9 Gastro-esophageal reflux disease without esophagitis; G47.33 Obstructive sleep apnea (adult) (pediatric); Z87.891 Personal history of nicotine dependence; Z95.810 Presence of automatic (implantable) cardiac defibrillator
CPT/HCPCS: 36415; 36600; 71046; 80053; 82805; 83735; 83880; 84484; 85027; 93005; 93306; 94640; 96365; 96372; 96374; 96375; 96376; 99285; A9270; G0378; J1650; J1956; J2930

== ENCOUNTER 2020-09-16 14:13 | Emergency (ER) | payer MEDICARE, OTHER, SELFPAY ==
--- NOTE | ~2020-09-16 | CT_ITS ---
EXAMINATION: CT abdomen pelvis wo con EXAM DATE: 09/16/2020 15:35 INDICATION: Mid to low abdominal pain. TECHNIQUE: Spiral CT of the abdomen and pelvis was performed without contrast. Axial, coronal and s agittal images of the abdomen and pelvis were reviewed. The dose-length product (DLP) for this exami nation was 352.77 mGy-cm. The exposure was tailored according to patient size (auto mA exposure cont rol), and iterative reconstruction (ASIR) was used as additional dose reduction technique. Comparison is made to prior examination from 02/25/2020. FINDINGS: There is severe sigmoid colonic diverticulosis, less at the other regions of the colon. The re is moderate amount of inflammation along the sigmoid colon without evidence of perforation or absc ess. Appearance is consistent with acute uncomplicated sigmoid diverticulitis. Some nodularity to the left adrenal gland, could indicate adenomas. The liver, spleen, adrenal gland s and pancreas are otherwise unremarkable. The gallbladder is distended but otherwise unremarkable. There is no biliary duct dilation. There is no nephrolithiasis or hydronephrosis. There is moderate renal atrophy, renal cortical thinning. Small region of left renal cortical scarring. The prostate i s unremarkable. The bladder is unremarkable. There is no retroperitoneal or pelvic lymphadenopathy. There is extensive scattered arterial sclerotic disease. Mild fusiform dilation of the infrarenal abdominal aorta up to 3.2 cm. Bilateral iliac ectasia. There are no findings to suggest appendicitis. The stomach and small bowel are unremarkable. No fr ee intraperitoneal gas. 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 Trace pericardial ef fusion. Some basilar emphysema. Cardiac lead. There are no osteoblastic or osteolytic lesions ident ified. Metallic artifact from a left hip arthroplasty. IMPRESSION: 1. Extensive sigmoid diverticulosis, moderate adjacent inflammation. Most likely acute uncomplicated diverticulitis. Inflammatory cancer not excludable. 2. Mildly aneurysmal abdominal aorta. 3. Other chronic findings. Reviewed, dictated and finalized at location A. IMPRESSION: 1. Extensive sigmoid diverticulosis, moderate adjacent inflammation. Most like ly acute uncomplicated diverticulitis. Inflammatory cancer not excludable. 2. Mildly aneurysmal abdominal aorta. 3. Other chronic findings.
--- NOTE | ~2020-09-16 | XR_ITS ---
EXAMINATION: XR chest 2V EXAM DATE: 09/16/2020 15:35 INDICATION: Shortness of breath. TECHNIQUE: Frontal and lateral projections of the chest obtained and reviewed. Comparison is made to prior examination from . FINDINGS: The lungs are hyperinflated which can be seen with chronic obstructive pulmonary disease (a clinical diagnosis of functional impairment), but is not diagnostic of it. There is single lead pace maker/AICD device seen with tip projecting over the expected location of right ventricle. No confluen t consolidation, pneumothorax or pleural effusion suspected. There are bony degenerative changes. 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 There is aortic arteriosclerosis. IMPRESSION: 1. Hyperinflation. 2. No acute cardiopulmonary findings. Reviewed, dictated and finalized at location A.
[2020-09-16 14:15] VITALS: BP 121/55; PULSE 99; RESP 16; TEMP 36.6; O2SAT 97
--- NOTE | 2020-09-16 14:43 | ECG_ITS ---
Measurements Intervals [place] Rate: 84 P: 75 MI: 161 QRS: 29 QRSD: 92 T: 77 QT: 343 QTc: 407 Interpretive Statements SINUS RHYTHM ANTEROSEPTAL INFARCT, AGE INDETERMINATE T WAVE ABNORMALITY IN ANTEROLATERAL LEADS- CONSIDER ISCHEMIA BASELINE WANDER- I, III, AVL ABNORMAL ECG Electronically Signed On 09-18-2020 7:42:08 CDT by De Alcocer D.O.
[2020-09-16 14:59] VITALS: PULSE 84; O2SAT 100
[2020-09-16 14:59] LABS: Basophils Absolute Auto 0.05 K/mm3 (0.00-0.10); Basophils Percent Auto 0.4 % (0.0-1.0); Eosinophils Absolute Auto 0.12 K/mm3 (0.02-0.50); Hematocrit 35.3 % (37.0-46.0); Hemoglobin 11.5 g/dL (12.4-15.3); Immature Granulocyte Absolute 0.05 K/mm3 (0.00-0.00); Immature Granulocyte Percent A 0.4 % (0.0-0.0); Lymphocytes Absolute Auto 1.16 K/mm3 (1.10-4.50); Lymphocytes Percent Auto 9.4 % (18.0-42.0); Mean Corpuscular HGB Conc 32.6 g/dL (32.0-36.0); Mean Corpuscular Hemoglobin 30.7 pg (27.0-31.0); Mean Corpuscular Volume 94.1 fL (78.0-102.0); Mean Platelet Volume 8.8 fl (8.7-11.0); Monocytes Absolute Auto 1.05 K/mm3 (0.10-0.90); Monocytes Percent Auto 8.5 % (2.0-11.0); Neutrophils Percent Auto 80.3 % (50.0-70.0); Platelet Count Result 256 K/mm3 (150-420); Red Blood Count 3.75 M/mm3 (4.70-6.10); Red Cell Distribution Width 12.7 % (11.6-14.4); White Blood Count 12.4 K/mm3 (4.8-10.8)
[2020-09-16 15:17] LABS: Lactic Acid Reflex 0.6 mmol/L (0.4-2.0)
[2020-09-16 15:19] LABS: Alanine Aminotransferase 13 U/L (16-63); Albumin Level 3.2 g/dL (3.4-5.0); Alkaline Phosphatase 91 U/L (46-116); Anion Gap 7 mmol/L (8-16); Aspartate Amino Transferase < 10 U/L (15-37); Bilirubin,Total 1.3 mg/dL (0.00-1.00); Blood Urea Nitrogen 10 mg/dL (7-18); Carbon Dioxide 31 mmol/L (21-32); Chloride 101 mmol/L (98-108); Estimated Glomerular Filt Rate > 60; Glucose 108 mg/dL (70-99); Lipase 29 U/L (73-393); NT Pro B Type Natriuretic Pept 1271 pg/mL (0-450); Osmolality Calculated 288 mOsm/kg (285-295); Potassium 4.1 mmol/L (3.5-5.1); Sodium 139 mmol/L (136-145); Total Protein 6.7 g/dL (6.4-8.2); Troponin I 8.9 ng/L (0.00-60.4)
--- NOTE | 2020-09-16 15:59 | ED.SOB ---
HPI - SOB/Dyspnea General Chief Complaint: Shortness of Breath/Dyspnea Stated Complaint: SOB, abd pain, difficulty urinating Source: patient History of Present Illness HPI Narrative: this is a 80 old gentleman with a history COPD CHF has a pacer and ICD in place was complaining of shortness of breath thumb dot was some this morning currently no shortness of breath, has been having some abdominal discomfort with no fever chills no flank pain no hematuria no nausea vomiting has loose stools but not watery and no constipation. Denies chest pain, with no orthopnea. MD elicited complaint: shortness of breath ( currently no shortness of breath) Pertinent past history: COPD Onset (ago): day(s) Timing: improved Related Data Home Medications Medication Instructions Recorded Confirmed carvedilol 6.25 mg PO BID 02/17/20 09/16/20 cholecalciferol (vitamin D3) 25 mcg PO DAILY 02/17/20 09/16/20 [Vitamin D3] sertraline 100 mg PO BID 02/17/20 09/16/20 atorvastatin 40 mg PO QPM 02/25/20 09/16/20 calcium carbonate 500 mg PO DAILY 02/25/20 09/16/20 coenzyme Q10 [Co Q-10] 30 mg PO QPM 02/25/20 09/16/20 cyanocobalamin (vitamin B-12) 1,000 mcg PO DAILY 02/25/20 09/16/20 senna 8.6 mg PO DAILY 02/25/20 09/16/20 Allergies Allergy/AdvReac Type Severity Reaction Status Date / Time tramadol Allergy Intermediate Hives Verified 03/04/19 13:45 amoxicillin Allergy Mild Rash Verified 03/04/19 13:45 doxycycline Allergy Mild Rash Verified 03/04/19 13:45 latex Allergy Mild Rash Verified 03/04/19 13:45 Review of Systems Review of Systems: All systems reviewed & are unremarkable except as noted in HPI and below PMFSH Past Medical History Medical History Cardiomyopathy COPD (chronic obstructive pulmonary disease) Fall as cause of accidental injury at home as place of occurrence GERD (gastroesophageal reflux disease) GI bleed CHRISTINE and COPD overlap syndrome Surgical History Surgical History History of hemiarthroplasty of left hip Social History Social History Smoking status: Former smoker Tobacco type: cigarettes Second hand tobacco smoke exposure: Yes Smoking end date: 03/14/18 Alcohol intake: former Drinks per week: 2 Substance use: never Substance use type: does not use Gender identity (if verbalized by the patient): Male Spiritual care concerns: No Exam Const: General: no acute distress Orientation/consciousness: patient oriented x3 HENMT: Head: normal to inspection Eyes: Conjunctivae: conjunctivae normal Pupils: Equal, round and reactive pupils present EOM: EOMs intact bilaterally Direct Ophthalmoscopy: no photophobia Neck: Neck: normal visual inspection Chest: Chest palpation & inspection: normal inspection of the chest and Pacemaker present Resp: Effort & Inspection: normal respiratory effort Cardio: Rate: regular rate Rhythm: regular rhythm GI: GI Palp: Yes Soft to palpation and Yes Tenderness to palpation present (GI) : Testes: Testes normal Back/Spine/Pelvis: Back: no CVA tenderness Skin: General skin exam: normal color Rashes: no rashes Neuro: General: patient oriented x3 Extrem: General: normal to inspection and no pedal edema Psych: Mental Status: mental status grossly normal Affect: normal affect Thought content: Yes Normal thought content present Course Course Emergency Course: Reassessment of patient currently no shortness of breath was complaining of abdominal pain earlier but declined any pain medicine and mainly complaining of gas and some crampy abdominal pain with no flank pain, CT scan reviewed with patient informed patient that he has a mild case of diverticulitis and will give him a dose of Cipro and a dose of Flagyl prior to discharge. Vital Signs Vital signs: Vital Signs Temperature 36.6 C 09/16/20
[2020-09-16] MEDS: metroNIDAZOLE 250 MG TABLET 500 MG PO (16:03)
[2020-09-16] MEDS: CIPROFLOXACIN 500 MG TAB PO (16:04)
[2020-09-16 16:09] VITALS: BP 119/57
== END 2020-09-16 16:28 | disposition home or self-care (01) ==
PROVIDERS: Emergency Provider Emergency Medicine
DX: K57.92 Diverticulitis of intestine, part unspecified, without perforation or abscess without bleeding (principal); J44.9 Chronic obstructive pulmonary disease, unspecified; K21.9 Gastro-esophageal reflux disease without esophagitis; Z87.891 Personal history of nicotine dependence; R06.02 Shortness of breath
CPT/HCPCS: 36415; 71046; 74176; 80053; 83605; 83690; 83880; 84484; 85025; 93005; 99283; 99284; A9270

== ENCOUNTER 2020-10-16 14:46 | Emergency (ER) | payer MEDICARE, OTHER, SELFPAY ==
[2020-10-16] VITALS (7 sets, daily range): BP systolic 79–135; BP diastolic 46–90; PULSE 72–102; RESP 20; TEMP 37.1; O2SAT 99–100
--- NOTE | 2020-10-16 14:58 | ED.GIBLEED ---
HPI - GI Bleed General Chief complaint: GI Bleed Stated complaint: AMB Time Seen by Provider: 10/16/20 14:58 Source: patient Mode of arrival: EMS Limitations: no limitations History of Present Illness HPI Narrative: 80-year-old man with a history of GI bleeds, coronary artery disease, and COPD comes in today complaining of having had 4 large bloody stools today. Patient states that each was at least 1 cup and volume. He states that he feels weak. He denies abdominal pain, chest pain, shortness of breath, nausea, vomiting, fever and chills. Denies history of liver disease. Patient states that he has been worked up both at [facility] and [facility] and they did not find anything. Patient takes 81 mg aspirin daily. MD complaint: gross hematochezia Onset (ago): hour(s) (2) Pain Consistency: intermittent Severity: severe Relieving factors: none Exacerbating factors: none Context: history of GI bleed and hemorrhoids Associated symptoms: weakness Treatments Prior to Arrival: none Related Data Home Medications Medication Instructions Recorded Confirmed carvedilol 6.25 mg PO BID 02/17/20 10/16/20 cholecalciferol (vitamin D3) 25 mcg PO DAILY 02/17/20 10/16/20 [Vitamin D3] sertraline 100 mg PO BID 02/17/20 10/16/20 atorvastatin 40 mg PO QPM 02/25/20 10/16/20 calcium carbonate 500 mg PO DAILY 02/25/20 10/16/20 coenzyme Q10 [Co Q-10] 30 mg PO QPM 02/25/20 10/16/20 cyanocobalamin (vitamin B-12) 1,000 mcg PO DAILY 02/25/20 10/16/20 senna 8.6 mg PO DAILY 02/25/20 10/16/20 Allergies Allergy/AdvReac Type Severity Reaction Status Date / Time tramadol Allergy Intermediate Hives Verified 10/16/20 15:22 amoxicillin Allergy Mild Rash Verified 10/16/20 15:22 doxycycline Allergy Mild Rash Verified 10/16/20 15:22 latex Allergy Mild Rash Verified 10/16/20 15:22 Review of Systems Review of Systems: All systems reviewed & are unremarkable except as noted in HPI and below Constitutional: Constitutional: Denies chills, Denies fever(s) and Reports weakness Eyes: Eyes: Denies change in vision and Denies photophobia ENT: Denies dysphagia, Denies nasal congestion and Denies sore throat Cardiovascular: Cardiovascular: Denies chest pain and Denies radiating jaw, neck or arm pain Respiratory: Respiratory: Denies cough, Denies dyspnea and Denies wheezing Gastrointestinal: Gastrointestinal: Reports as per HPI, Denies abdominal pain, Denies diarrhea, Denies nausea and Denies vomiting Genitourinary: Genitourinary: Denies hematuria, Denies dysuria and Denies urinary frequency Musculoskeletal: Musculoskeletal: Denies arthralgias and Denies joint swelling Integumentary/Breasts: Skin/Breast: Denies pruritus, Denies erythema and Denies rash Neurologic: Denies vertigo, Denies dizziness, Denies syncope and Denies headache(s) Hematologic/Lymphatic: Hematologic/Lymphatic: Denies easy bleeding and Denies easy bruising Allergic/Immunologic: Allergic/Immunologic: Denies lip swelling and Denies tongue swelling PMFSH Past Medical History Medical History BPH (benign prostatic hyperplasia) Cardiomyopathy Congestive heart failure COPD (chronic obstructive pulmonary disease) Fall as cause of accidental injury at home as place of occurrence GERD (gastroesophageal reflux disease) GI bleed Myocardial infarction CHRISTINE and COPD overlap syndrome TIA (transient ischemic attack) Surgical History Surgical History History of hemiarthroplasty of left hip Stented coronary artery Social History Social History Smoking status: Former smoker Tobacco type: cigarettes Second hand tobacco smoke exposure: Yes Smoking end date: 03/14/18 Alcohol intake: former Drinks per week: 2 Substance use: never Substance use type: does not use Gender identity (if verbalized by the patient): M
[2020-10-16 15:02] LABS: Occult Blood Positive (Negative)
[2020-10-16 15:18] LABS: Basophils Absolute Auto 0.06 K/mm3 (0.00-0.10); Basophils Percent Auto 0.7 % (0.0-1.0); Eosinophils Absolute Auto 0.57 K/mm3 (0.02-0.50); Eosinophils Percent Auto 6.8 % (1.0-6.0); Hematocrit 33.4 % (37.0-46.0); Hemoglobin 10.6 g/dL (12.4-15.3); Immature Granulocyte Absolute 0.06 K/mm3 (0.00-0.00); Immature Granulocyte Percent A 0.7 % (0.0-0.0); Lymphocytes Absolute Auto 1.24 K/mm3 (1.10-4.50); Lymphocytes Percent Auto 14.9 % (18.0-42.0); Mean Corpuscular HGB Conc 31.7 g/dL (32.0-36.0); Mean Corpuscular Hemoglobin 30.1 pg (27.0-31.0); Mean Corpuscular Volume 94.9 fL (78.0-102.0); Mean Platelet Volume 9.2 fl (8.7-11.0); Monocytes Percent Auto 7.2 % (2.0-11.0); Neutrophils Absolute Auto 5.8 K/mm3 (1.7-7.2); Neutrophils Percent Auto 69.7 % (50.0-70.0); Platelet Count Result 313 K/mm3 (150-420); Red Blood Count 3.52 M/mm3 (4.70-6.10); Red Cell Distribution Width 13.4 % (11.6-14.4); White Blood Count 8.4 K/mm3 (4.8-10.8)
[2020-10-16 15:32] LABS: Partial Thromboplastin Time 27.9 SEC (23.90-30.70)
[2020-10-16] MEDS: SODIUM CHLORIDE 0.9% IV 1,000 ML 999 ML IV CONT ×2 (15:38→16:46)
[2020-10-16] MEDS: PANTOPRAZOLE SODIUM IV 40 MG VIAL 80 MG IV PUSH (15:38)
[2020-10-16 15:45] LABS: Alanine Aminotransferase 17 U/L (16-63); Albumin Level 3.1 g/dL (3.4-5.0); Alkaline Phosphatase 92 U/L (46-116); Anion Gap 4 mmol/L (8-16); Aspartate Amino Transferase 14 U/L (15-37); Bilirubin,Total 0.6 mg/dL (0.00-1.00); Blood Urea Nitrogen 21 mg/dL (7-18); Calcium 8.7 mg/dL (8.5-10.1); Carbon Dioxide 32 mmol/L (21-32); Chloride 104 mmol/L (98-108); Estimated CRCL calculation 58 ml/min; Estimated Glomerular Filt Rate > 60; Glucose 129 mg/dL (70-99); Osmolality Calculated 295 mOsm/kg (285-295); Sodium 140 mmol/L (136-145); Total Protein 6.4 g/dL (6.4-8.2)
--- NOTE | 2020-10-16 16:48 | PC.NURSE ---
[facility] CALLED FOR POSSIBLE TRANSFER
[2020-10-16 19:01] LABS: SARS-CoV-2 Ag Negative (Negative)
== END 2020-10-16 19:06 | disposition short-term general hospital (02) ==
PROVIDERS: Emergency Provider Emergency Medicine
DX: K92.2 Gastrointestinal hemorrhage, unspecified (principal); Z20.822 Contact with and (suspected) exposure to COVID-19
CPT/HCPCS: 36415; 80053; 82272; 83605; 85025; 85610; 85730; 87040; 87045; 87046; 87324; 87426; 87427; 89055; 96361; 96374; 99285; C9113; C9803; J7030

== ENCOUNTER 2020-10-16 20:16 | Inpatient (IN) | payer MEDICARE, OTHER, SELFPAY ==
[2020-10-16] VITALS (10 sets, daily range): BP systolic 90–106; BP diastolic 51–68; PULSE 78–132; RESP 16–20; TEMP 36.6–37.1; O2SAT 97–100
--- NOTE | 2020-10-16 20:02 | PC.NURSE ---
This patient, Chip Emery, was admitted to IMU Room 201-01 on 10/16/20 at 1945. Patient/family oriented to hospital policies and general routines including ID bracelet, bed and alarms, visiting hours, pain management, procedures, bathroom and other care routines, personal items, smoking policy, room service/diet, and visiting hours. Information on how to activate the Rapid Response Team has been discussed. Patient/Family are encouraged to report perceived risks to care and to ask questions if they do not understand what they are told or what they should do.
--- NOTE | 2020-10-16 20:30 | PM.IMHP ---
H&P: HPI History of Present Illness Date/Time: 10/16/20 20:30 Chief Complaint: Lower GI bleed. Narrative: This is a very pleasant 80-year-old male with with coronary artery disease and ischemic cardiomyopathy, COPD, chronic respiratory failure on 2 liters nasal cannula, benign prostatic hyperplasia, and history of GI bleed x3 although no source has ever been found who is being directly admitted to the IMU from the emergency department at the [facility] for further treatment and evaluation of a lower GI bleed. He felt okay when he got up this morning and around 10:00 he had the sudden urge to have a bowel movement and he reports passing a large amount of bright red blood. He has had 6 bloody stools since that time and on arrival to the outside emergency department he was tachycardic and hypotensive. After receiving a bolus of IV fluids his blood pressures have stabilized. His hemoglobin and hematocrit were not drastically lower than what he typically run, but a repeat hemoglobin done on arrival to [place] showed a drop of nearly 2 grams. He has been hospitalized 3 times since 2017 for GI bleeds, 2 times at [facility] in [place] where they were not able to find a source of the bleeding, and once at [facility] in [place] but again no source of bleeding was discovered. At the time my evaluation he is feeling ?depleted? and reports feeling shaky and dizzy with standing. He has not had a bowel movement since arrival to [place]. Earlier this evening he was a bit nauseated and diaphoretic however that has since passed. He has a history of constipation but he has been moving his bowels pretty good here recently and does not remember having to strain with any bowel movements recently. He also denies chest pain, shortness of breath, and vomiting. He denies epigastric and abdominal pain. Review of Systems Review of Systems: Narrative: Twelve systems were reviewed with pertinent positives and negatives as per HPI. No syncope. He denies headache. Wears corrective lenses. No recent cold or flu symptoms. He denies significant caffeine and alcohol use. Rarely has heartburn. No epistaxis or gingival bleeding. He denies hematuria. No chest pain or pleuritic pain. He denies palpitations. No orthopnea or PND. He has occasional right alejandro ankle edema which is an ongoing issue. No history of venous thromboembolism. Except as documented, all other systems were reviewed and are negative. [facility] Past Medical History Medical History (Updated 10/16/20 @ 22:08 by Earnestine Marcano PA-C) Arthritis Benign prostatic hyperplasia Chronic obstructive pulmonary disease Chronic respiratory failure with hypoxia, on home oxygen therapy Depression with anxiety GI bleed X3 since 2017. He has had multiple upper and lower endoscopies and no source of bleeding has ever been found. Ischemic cardiomyopathy Echocardiogram in March 2020 showed a severely enlarged left ventricular chamber with severely reduced systolic function and estimated EF of 30 to 35%. Mid to apical septum is thin and akinetic. Mid to apical anterior wall and apex are akinetic. Myocardial infarction Status post stent x1. Posttraumatic stress disorder Transient ischemic attack Traumatic amputation of multiple fingers The patient lost his right 1st through 3rd fingers while stationed in [employer]. Valvular heart disease Echocardiogram in March 2020 showed mild aortic valve regurgitation, moderate mitral valve regurgitation, and mild tricuspid valve regurgitation. Surgical History Surgical History (Updated 10/16/20 @ 21:59 by Earnestine Marcano PA-C) History of cataract removal with insertion of prosthetic lens History of hemiarthroplasty of left hip Presence of combination internal cardiac defibrillator (ICD) and pacemaker Stented coronary artery Family History Family History Other Unknown family medical history
[2020-10-16 20:52] LABS: Hematocrit 27.8 % (42.0-52.0); Hemoglobin 8.7 g/dL (14.0-18.0)
[2020-10-16] MEDS: ALPRAZolam (*CRX) 0.25 MG TABLET PO (22:23)
[2020-10-16] MEDS: TAMSULOSIN HCL 0.4 MG CAPSULE 0.8 MG PO (22:23)
[2020-10-16] MEDS: SODIUM CHLORIDE 0.9% IV 250 ML 30 ML IV CONT (23:02)
[2020-10-16] MEDS: BUDESONIDE RESPULE NEB 0.5 MG/2 ML AMP INHALATION (23:16)
[2020-10-16] MEDS: IPRATROPIUM BR 0.02% INH SOLN 0.5 MG/2.5 ML VIAL INHALATION (23:17)
[2020-10-16] MEDS: ALBUTEROL SULFATE NEB 2.5 MG/0.5 ML INH INHALATION (23:17)
[2020-10-17] VITALS (31 sets, daily range): BP systolic 97–136; BP diastolic 40–69; PULSE 86–132; RESP 12–22; TEMP 36.3–36.7; O2SAT 95–100; BMI 22.1
[2020-10-17] MEDS: TUBING, BLOOD PLUM PUMP TUBING 1 EACH XX ×2 (05:20)
[2020-10-17] MEDS: PEG (High)/E-LYTE SOLN 4,000 ML BTL 4000 ML PO (06:21)
[2020-10-17 06:31] LABS: Hematocrit 30.5 % (42.0-52.0); Hemoglobin 9.8 g/dL (14.0-18.0)
[2020-10-17 06:41] LABS: Anion Gap 7 mmol/L (8-16); Blood Urea Nitrogen 25 mg/dL (9-20); Calcium 7.8 mg/dL (8.4-10.2); Carbon Dioxide 24 mmol/L (22-30); Chloride 109 mmol/L (98-107); Estimated CRCL calculation 59 ml/min; Estimated Glomerular Filt Rate > 60; Glucose 109 mg/dL (75-110); Magnesium 1.8 mg/dL (1.6-2.3); Potassium 4.4 mmol/L (3.4-5.0); Sodium 140 mmol/L (137-145)
--- NOTE | 2020-10-17 07:17 | WPDGICN ---
Assessment and Plan Assessment and plan (1) Acute blood loss anemia: Code(s): D62 - Acute posthemorrhagic anemia Status: Acute Assessment and Plan: his hemoglobin was reportedly 7.9 in [place]. He was also hypotensive, blood pressure 85/46. He was given 2 L of fluid which brought his blood pressure up to 135 systolic. His hemoglobin was 10 when he left stone 10 but 8.7 here last night. He has received now 2 units of blood. he is beginning a bowel prep and he will have EGD and colonoscopy later today. The procedures prep and risks were discussed with him. He has cardiac and pulmonary disease and he understands that there are cardiopulmonary risks with sedation. Likewise there is a possibility of bleeding or perforation secondary to the procedure itself. (2) GI bleed: Qualifiers: GI bleed type/associated pathology: unspecified gastrointestinal hemorrhage type Qualified Code(s): K92.2 - Gastrointestinal hemorrhage, unspecified Code(s): K92.2 - Gastrointestinal hemorrhage, unspecified Status: Acute Assessment and Plan: after 2 units of blood his hemoglobin is 9.8. He had 1 large bloody bowel movement last evening. He is beginning his bowel prep in will obviously be passing blood with that (3) Chronic obstructive pulmonary disease: Code(s): J44.9 - Chronic obstructive pulmonary disease, unspecified Status: Acute Assessment and Plan: He is on chronic O2 at home at 2 L. He has his inhalers here. He denies shortness of breath at this moment GI Consult Note Consult date/time: 10/17/20 07:17 HPI: Chip Emery is a 80 year old male who had presented to the ED in [place], [place] yesterday with c/o acute rectal bleeding. He is a 80-year-old male with with coronary artery disease and ischemic cardiomyopathy, COPD, chronic respiratory failure on 2 liters nasal cannula, benign prostatic hyperplasia, and history of GI bleed x3 although no source has ever been found who is being directly admitted to the IMU from the emergency department at the [facility] for further treatment and evaluation of a lower GI bleed. He felt okay when he got up this morning and around 10:00 he had the sudden urge to have a bowel movement and he reports passing a large amount of bright red blood. He has had 6 bloody stools since that time and on arrival to the outside emergency department he was tachycardic and hypotensive. After receiving a bolus of IV fluids his blood pressures have stabilized. His hemoglobin and hematocrit were not drastically lower than what he typically run, but a repeat hemoglobin done on arrival to [place] showed a drop of nearly 2 grams. He has been hospitalized twice in [place], [place] and once in [place], with neagative workups each time, no bleeding source found . He also denies chest pain, shortness of breath, and vomiting. He denies epigastric and abdominal pain. Review of Systems Review of Systems: All systems reviewed & are unremarkable except as noted in HPI and below PMFSH Past Medical History Medical History Arthritis Benign prostatic hyperplasia Chronic obstructive pulmonary disease Chronic respiratory failure with hypoxia, on home oxygen therapy Depression with anxiety GI bleed X3 since 2016. He has had multiple upper and lower endoscopies and no source of bleeding has ever been found. Ischemic cardiomyopathy Echocardiogram in March 2020 showed a severely enlarged left ventricular chamber with severely reduced systolic function and estimated EF of 30 to 35%. Mid to apical septum is thin and akinetic. Mid to apical anterior wall and apex are akinetic. Myocardial infarction Status post stent x1. Posttraumatic stress disorder Transient ischemic attack Traumatic amputation of multiple fingers The patient lost his right 1st through 3rd fingers while stationed in [employer]. Valvular
[2020-10-17] MEDS: ALPRAZolam (*CRX) 0.25 MG TABLET PO ×2 (07:47→18:08)
[2020-10-17] MEDS: ONDANSETRON INJ 4 MG/2 ML VIAL IV PUSH ×3 (07:47→18:15)
--- NOTE | 2020-10-17 08:12 | WPDANESEPPF ---
Anes - Initial Pre Proc Eval Procedure: Operation Date: 10/17/20 15:30 Proposed Procedures p Esophagogastroduodenoscopy & Colonoscopy - Chip Baer MD <Aayush Sanon MD - Last Filed: 10/18/20 13:53> Date/Time: 10/17/20 08:12 <Aayush Sanon MD - Last Filed: 10/18/20 13:53> Surgeon: Radha Gee MD <Aayush Sanon MD - Last Filed: 10/18/20 13:53> Pre Op Diagnosis: GIB/Hypotension <Aayush Sanon MD - Last Filed: 10/18/20 13:53> Patient Data Age: 80 Gender: M Height: 1.8 m Weight: 72 kg <Aayush Sanon MD - Last Filed: 10/18/20 13:53> Last Vital Signs Temp 36.4 C 10/17/20 07:50 Pulse 98 10/17/20 07:50 Resp 17 10/17/20 07:50 BP 124/52 L 10/17/20 07:50 Pulse Ox 100 10/17/20 07:50 <Aayush Sanon MD - Last Filed: 10/18/20 13:53> Allergies Allergy/AdvReac Type Severity Reaction Status Date / Time tramadol Allergy Intermediate Hives Verified 10/17/20 15:17 amoxicillin Allergy Mild Rash Verified 10/17/20 15:17 doxycycline Allergy Mild Rash Verified 10/17/20 15:17 latex Allergy Mild Rash Verified 10/17/20 15:17 <Aayush Sanon MD - Last Filed: 10/18/20 13:53> Home Medications Medication Instructions Recorded Confirmed Type aspirin [Adult Low Dose Aspirin] 81 mg PO DAILY #30 tablet 03/15/19 10/16/20 Rx pantoprazole 40 mg PO HS #30 tablet 03/15/19 10/16/20 Rx tamsulosin 0.8 mg PO HS #30 cap 03/15/19 10/16/20 Rx atorvastatin 40 mg PO QPM 02/25/20 10/16/20 History coenzyme Q10 [Co Q-10] 200 mg PO QPM 02/25/20 10/16/20 History cyanocobalamin (vitamin B-12) 1,000 mcg PO DAILY 02/25/20 10/16/20 History alprazolam [Xanax] 0.25 mg PO BID 10/16/20 10/16/20 History budesonide [Pulmicort] 0.5 mg INHALATION BID 10/16/20 10/16/20 History calcium carbonate 600 mg PO DAILY 10/16/20 10/16/20 History carvedilol 3.125 mg PO BID 10/16/20 10/16/20 History formoterol fumarate [Perforomist] 20 mcg INHALATION BID 10/16/20 10/16/20 History furosemide 40 mg PO DAILY 10/16/20 10/16/20 History guaifenesin 200 mg PO Q4H PRN 10/16/20 10/16/20 History ipratropium-albuterol 3 ml INHALATION BID 10/16/20 10/16/20 History ipratropium-albuterol [Combivent 1 puff INHALATION TID 10/16/20 10/16/20 History Respimat] nitroglycerin [Nitrostat] 0.4 mg SUBLINGUAL PRN PRN 10/16/20 10/16/20 History potassium chloride 20 meq PO BID 10/16/20 10/16/20 History spironolactone 25 mg PO DAILY 10/16/20 10/16/20 History triamcinolone acetonide 1 applic TOPICAL BID 10/16/20 10/16/20 History <Aayush Sanon MD - Last Filed: 10/18/20 13:53> Laboratory Tests 10/16/20 10/16/20 10/17/20 20:46 20:46 06:13 Hgb 8.7 g/dL L g/dL (14.0-18.0) Hct 27.8 % L % (42.0-52.0) Sodium 140 mmol/L mmol/L (137-145) Potassium 4.4 mmol/L mmol/L (3.4-5.0) Chloride 109 mmol/L H mmol/L (98-107) Carbon Dioxide 24 mmol/L mmol/L (22-30) Anion Gap 7 mmol/L L mmol/L (8-16) BUN 25 mg/dL H mg/dL (9-20) Creatinine 0.90 mg/dL mg/dL (0.7-1.3) Estim Creat Clear Calc 59 ml/min ml/min Estimated GFR > 60 (59 - ) Glucose 109 mg/dL mg/dL (75-110) Calcium 7.8 mg/dL L mg/dL (8.4-10.2) Magnesium 1.8 mg/dL mg/dL (1.6-2.3) Blood Type O Positive Antibody Screen Negative Crossmatch See Detail 10/17/20 06:13 Hgb 9.8 g/dL L g/dL (14.0-18.0) Hct 30.5 % L % (42.0-52.0) Sodium Potassium Chloride Carbon Dioxide Anion Gap BUN Creatinine Estim Creat Clear Calc Estimated GFR Glucose Calcium Magnesium Blood Type Antibody Screen Crossmatch <Aayush Sanon MD - Last Filed: 10/18/20 13:53> Patient hx anesthesia problems: none <Rubio Gaytan DO - Last Filed: 10/17/20 15:25> Family
[2020-10-17] MEDS: BUDESONIDE RESPULE NEB 0.5 MG/2 ML AMP INHALATION ×2 (08:33→20:42)
[2020-10-17] MEDS: IPRATROPIUM BR 0.02% INH SOLN 0.5 MG/2.5 ML VIAL INHALATION ×2 (08:33→20:42)
[2020-10-17] MEDS: ALBUTEROL SULFATE NEB 2.5 MG/0.5 ML INH INHALATION ×2 (08:33→20:42)
[2020-10-17] MEDS: MAGNESIUM CITRATE 300 ML BTL PO (10:33)
--- NOTE | 2020-10-17 13:19 | PM.IMPN ---
Progress Note: A&P Assessment and Plan (1) Lower GI bleed: Code(s): K92.2 - Gastrointestinal hemorrhage, unspecified Status: Acute (2) Acute blood loss anemia: Code(s): D62 - Acute posthemorrhagic anemia Status: Acute (3) Ischemic cardiomyopathy: Code(s): I25.5 - Ischemic cardiomyopathy Status: Acute (4) Orthostatic hypotension: Code(s): I95.1 - Orthostatic hypotension Status: Inactive (5) Chronic obstructive pulmonary disease: Code(s): J44.9 - Chronic obstructive pulmonary disease, unspecified Status: Acute (6) Chronic respiratory failure with hypoxia, on home oxygen therapy: Code(s): J96.11 - Chronic respiratory failure with hypoxia; Z99.81 - Dependence on supplemental oxygen Status: Acute Additional Plan The patient was directly admitted to the IMU from [facility] ED for further treatment and evaluation of a lower GI bleed. His hemoglobin was 10.6 on admission. He received 2L of IV fluids for HoTN (BP as low as 79/50). Here, Hgb 8.2. Patietn type and crossed and transfused 2U PRBC. GI consulted. hgb this morning 9.8. BUN 25. Patient still with rectal bleeding. Bowel prep ordered with plans for colonoscopy and EGD later today. Adelineet is tachycardic with activity but appears to be sinus mechanism. Continue serial HH to enure stability. Lasix and other anti-HTN medications on hold. Will hold potasium as well. Continue PPI. Continue inhalers. SCDs Subjective Date/time seen: 10/17/20 13:19 Interval history: 80yo male CAD, iCMP, COPD, chronic respiratory failure (2L), BPH and history of GI bleed x3 although no source found who is being directly admitted to the IMU from ED at [facility] for further treatment and evaluation of a lower GI bleed. Meredithn still haveing rectal bleeding. No CP. He feels SOB but this is more chronic. He is alos having GRANADOS. Having abd pain ususally better after BM. Tolerated some jello earlier today without n/v. Exam Narrative: Exam Narrative: AF 97.6 119/54 132 12 100% 3L Gen - NARD sitting up on the bedside commode Chest - distant, clear BS CV - tachycardic, regular. Tele showing ST. Abd - Soft, NT/ND, Positive BS Ext - No significnat pedal edema; multiple digit amputations right hand Psych - Nml mood and affect Skin - Warm and dry Objective Data Vital Signs Vital Signs: Vital Signs - 24 hr 10/16/20 19:40 10/16/20 19:51 10/16/20 20:00 Temperature 97.9 F Pulse Rate 110 H 115 H Respiratory Rate 20 Blood Pressure 106/52 L Pulse Oximetry 100 100 10/16/20 22:00 10/16/20 23:09 10/16/20 23:17 Temperature 98.8 F Pulse Rate 132 H 102 H 78 Respiratory Rate 16 18 Blood Pressure 100/68 Pulse Oximetry 100 10/16/20 23:22 10/16/20 23:27 10/16/20 23:33 Temperature 98.6 F Pulse Rate 108 H 80 Respiratory Rate 16 18 Blood Pressure 90/51 L Pulse Oximetry 97 100 10/16/20 23:58 10/17/20 00:00 10/17/20 00:26 Temperature 98.1 F Pulse Rate 101 H 113 H Respiratory Rate 18 Blood Pressure 111/47 L Pulse Oximetry 100 100 10/17/20 01:48 10/17/20 02:00 10/17/20 02:05 Temperature 98.1 F 97.6 F Pulse Rate 95 97 119 H Respiratory Rate 16 16 Blood Pressure 115/62 99/48 L Pulse Oximetry 100 100 10/17/20 03:05 10/17/20 04:00 10/17/20 04:05 Temperature 97.9 F 98.0 F 98.0 F Pulse Rate 96 92 91 Respiratory Rate 12 20 20 Blood Pressure 97/48 L 112/59 L 112/59 L Pulse Oximetry 100 100 100 10/17/20 05:13 10/17/20 06:00 10/17/20 07:50 Temperature 97.4 F L 97.6 F Pulse Rate 86 99 98 Respiratory Rate 18 17 Blood Pressure 109/48 L 124/52 L Pulse Oximetry 100 100 10/17/20 08:00 10/17/20 08:33 10/17/20 08:48 Temperature Pulse Rate 107 H 100 97 Respiratory Rate 20 20 Blood Pressure Pulse Oximetry 96 96 10/17/20 10:00 10/17/20 11:40 06/15/21 12:00 Temperature 97.6 F Pulse Rate 113 H 106 H 132 H Respiratory Rate 12 Blood Pre
[2020-10-17 13:21] LABS: Hematocrit 29.7 % (42.0-52.0); Hemoglobin 9.4 g/dL (14.0-18.0)
[2020-10-17] MEDS: LACTATED RINGERS 1,000 ML 150 ML IV CONT (15:30)
[2020-10-17] MEDS: ATORVASTATIN 40 MG TABLET PO (18:08)
[2020-10-17 18:21] LABS: Hematocrit 24.5 % (42.0-52.0); Hemoglobin 7.9 g/dL (14.0-18.0)
[2020-10-17] MEDS: TAMSULOSIN HCL 0.4 MG CAPSULE 0.8 MG PO (20:28)
[2020-10-17] MEDS: PANTOPRAZOLE 40 MG TABLET PO (20:28)
[2020-10-18] VITALS (25 sets, daily range): BP systolic 104–156; BP diastolic 41–60; PULSE 75–127; RESP 16–24; TEMP 36.1–36.8; O2SAT 91–100
[2020-10-18 02:00] LABS: Hematocrit 23.1 % (42.0-52.0); Hemoglobin 7.2 g/dL (14.0-18.0); Mean Corpuscular HGB Conc 31.2 g/dl (32-36); Mean Corpuscular Hemoglobin 29.4 pg (26-34); Mean Corpuscular Volume 94.3 fl (80-100); Mean Platelet Volume 9.8 fl (7.4-10.4); Platelet Count Result 287 k/mm3 (150-375); Red Blood Count 2.45 M/mm3 (4.6-6.20); White Blood Count 17.4 K/mm3 (4.5-10.0)
[2020-10-18 05:20] LABS: Basophils Percent Auto 0.2 % (0.2-1.2); Immature Granulocyte Absolute 0.18 K/mm3 (0.00-0.031); Immature Granulocyte Percent A 1.1 % (0-0.5); Lymphocytes Percent Auto 6.8 % (18.3-44.2); Mean Corpuscular HGB Conc 31.4 g/dl (32-36); Mean Corpuscular Hemoglobin 29.6 pg (26-34); Mean Corpuscular Volume 94.2 fl (80-100); Mean Platelet Volume 9.7 fl (7.4-10.4); Monocytes Absolute Auto 1.3 K/mm3 (0.1-0.6); Monocytes Percent Auto 8.3 % (2.6-8.5); Neutrophils Absolute Auto 13.5 K/mm3 (1.3-6.7); Neutrophils Percent Auto 83.6 % (45.5-73.1); Platelet Count Result 283 k/mm3 (150-375); Red Blood Count 2.23 M/mm3 (4.6-6.20); White Blood Count 16.2 K/mm3 (4.5-10.0)
[2020-10-18 05:42] LABS: Hemoglobin 6.6 g/dL (14.0-18.0)
[2020-10-18 05:44] LABS: Anion Gap 5 mmol/L (8-16); Blood Urea Nitrogen 30 mg/dL (9-20); Calcium 7.2 mg/dL (8.4-10.2); Carbon Dioxide 28 mmol/L (22-30); Chloride 104 mmol/L (98-107); Estimated CRCL calculation 46 ml/min; Estimated Glomerular Filt Rate 58; Glucose 140 mg/dL (75-110); Potassium 3.9 mmol/L (3.4-5.0); Sodium 137 mmol/L (137-145)
[2020-10-18] MEDS: ALBUTEROL SULFATE NEB 2.5 MG/0.5 ML INH INHALATION ×2 (06:32→21:26)
[2020-10-18] MEDS: IPRATROPIUM BR 0.02% INH SOLN 0.5 MG/2.5 ML VIAL INHALATION ×2 (06:32→21:25)
[2020-10-18] MEDS: BUDESONIDE RESPULE NEB 0.5 MG/2 ML AMP INHALATION ×2 (06:32→21:25)
[2020-10-18] MEDS: ONDANSETRON INJ 4 MG/2 ML VIAL IV PUSH (06:47)
--- NOTE | 2020-10-18 07:23 | WPDGIPROGNO ---
Progress Note: A&P Assessment and Plan (1) Acute blood loss anemia: Code(s): D62 - Acute posthemorrhagic anemia Status: Acute Assessment and Plan: hemoglobin is lower, reflecting equal a brace liao. He has had no further bloody stools since his colonoscopy. (2) Diverticulosis of colon with hemorrhage: Code(s): K57.31 - Diverticulosis of large intestine without perforation or abscess with bleeding Status: Acute Assessment and Plan: If any further bleeding I would obtain a tagged red blood cell scan. It appears however that the bleeding has stopped. I would hope that he could stay off aspirin a few more days (3) Ischemic cardiomyopathy: Code(s): I25.5 - Ischemic cardiomyopathy Status: Acute Assessment and Plan: this as well as his other comorbidities make surgery an unfavorable option. Also, his diverticular disease is fairly extensive. If was confined to the sigmoid colon then we could opt for a sigmoid resection knowing that the bleeding would be less likely to recur. In his case I think will hope that he has no further episodes. Subjective Date/time seen: 10/18/20 07:23 He was nauseated yesterday and ate very little. Today he feels like he could enjoy his breakfast. Although his blood counts have dropped, he states he has had no further bloody stools. Denies abdominal pain. Review of Systems Review of Systems: All systems reviewed & are unremarkable except as noted in HPI and below Exam Const: General: comfortable Orientation/consciousness: patient oriented x3 GI: GI Palp: No abdominal tenderness, Yes Soft to palpation and Yes No hepatosplenomegaly present Auscultation: normal bowel sounds Skin: General skin exam: ecchymosis Objective Data Vital Signs Vital Signs: Vital Signs - 24 hr 10/17/20 07:50 10/17/20 08:00 10/17/20 08:33 Temperature 36.4 C Pulse Rate 98 107 H 100 Respiratory Rate 17 20 Blood Pressure 124/52 L Pulse Oximetry 100 96 96 10/17/20 08:48 10/17/20 10:00 10/17/20 11:40 Temperature 36.4 C Pulse Rate 97 113 H 106 H Respiratory Rate 20 12 Blood Pressure 119/54 L Pulse Oximetry 99 10/17/20 12:00 10/17/20 14:00 10/17/20 15:19 Temperature 36.4 C Pulse Rate 132 H 104 H 116 H Respiratory Rate 20 Blood Pressure 109/69 Pulse Oximetry 100 100 10/17/20 16:00 10/17/20 16:28 10/17/20 16:38 Temperature 36.4 C Pulse Rate 112 H 86 88 Respiratory Rate 12 22 H 18 Blood Pressure 136/64 99/41 L 114/43 L Pulse Oximetry 100 99 98 10/17/20 16:48 10/17/20 17:30 10/17/20 18:00 Temperature Pulse Rate 86 117 H Respiratory Rate 20 Blood Pressure 126/43 L Pulse Oximetry 96 98 10/17/20 20:00 10/17/20 20:43 10/17/20 20:47 Temperature 36.6 C Pulse Rate 100 100 100 Respiratory Rate 22 H 20 Blood Pressure 133/69 Pulse Oximetry 95 96 10/17/20 20:52 10/17/20 22:00 10/17/20 23:52 Temperature 36.6 C Pulse Rate 101 H 101 H 94 Respiratory Rate 20 18 Blood Pressure 118/40 L Pulse Oximetry 100 10/18/20 00:00 10/18/20 02:00 10/18/20 04:00 Temperature 36.4 C Pulse Rate 89 98 93 Respiratory Rate 20 Blood Pressure 129/60 Pulse Oximetry 97 100 10/18/20 06:00 10/18/20 06:33 10/18/20 06:49 Temperature Pulse Rate 87 100 106 H Respiratory Rate 22 H 22 H Blood Pressure Pulse Oximetry 91 Intake/Output Intake/Output: Intake & Output 10/15/20 10/16/20 10/17/20 10/18/20 23:59 23:59 23:59 23:59 Intake Total 0 990 200 Output Total 400 1450 150 Balance -400 -460 50 Meds/Results Medications: Active Medications Generic Name Dose Route Start Last Admin Trade Name Freq PRN Reason Stop Dose Admin Acetaminophen 650 mg 10/16/20 20:16 Acetaminophen 325 Mg Tablet PO Q4H PRN Mild Pain (1-3) or Fever Albuterol 2.5 mg 10/16/20 22:34 10/18/20 06:32 Albuterol Sulfate Neb 2.5 Mg/0.5 Ml Inh INHALATION 2.5 mg Q12HRT [facility] Administ
[2020-10-18] MEDS: ALPRAZolam (*CRX) 0.25 MG TABLET PO ×2 (08:40→16:56)
[2020-10-18] MEDS: SODIUM CHLORIDE 0.9% IV 250 ML 30 ML IV CONT (08:41)
--- NOTE | 2020-10-18 09:32 | PM.IMPN ---
Progress Note: A&P Assessment and Plan (1) Diverticulosis of colon with hemorrhage: Code(s): K57.31 - Diverticulosis of large intestine without perforation or abscess with bleeding Status: Acute (2) Acute blood loss anemia: Code(s): D62 - Acute posthemorrhagic anemia Status: Acute (3) Ischemic cardiomyopathy: Code(s): I25.5 - Ischemic cardiomyopathy Status: Acute (4) Orthostatic hypotension: Code(s): I95.1 - Orthostatic hypotension Status: Inactive (5) Chronic obstructive pulmonary disease: Code(s): J44.9 - Chronic obstructive pulmonary disease, unspecified Status: Acute (6) Chronic respiratory failure with hypoxia, on home oxygen therapy: Code(s): J96.11 - Chronic respiratory failure with hypoxia; Z99.81 - Dependence on supplemental oxygen Status: Acute Additional Plan The patient was directly admitted to the IMU from [place] ED for further treatment and evaluation of a lower GI bleed. His hemoglobin was 10.6 on admission. He received 2L of IV fluids for HoTN (BP as low as 79/50). On admission, Hgb 8.2. Patient type and crossed and transfused 2U PRBC. GI consulted. Patient still had rectal bleeding with bowel prep. Colonoscopy 10/17 showing diverticulosis with evidence of recent bleeding. EGD showing gastritis. Acute GI bleed from diverticulosis. Hgb moniotred overnight and Hgb dropped to 6.6 this morning. Transfusion of 2U PRBC ordered. Continue to hold ASA. Plan for GenSurg evaluation as outpatient to see if surgery would be appropiate. Resume lasix. Continue serial HH to ensure stability. Continue PPI for the gastritis. Subjective Date/time seen: 10/18/20 09:32 Interval history: 80yo male CAD, iCMP, COPD, chronic respiratory failure (2L), BPH and history of GI bleed x3 although no source found who is being directly admitted to the IMU from ED at [place] for further treatment and evaluation of a lower GI bleed. No CP or SOB. Slight cough this morning but more common for him to have morning cough. No BMs since the bowel prep. Not eating much. Abdominal pain this morning but improved now. Exam Narrative: Exam Narrative: AF 97.5 125/52 85 20 99% 3L Gen - NARD lying almost flat in bed Chest - distant, clear BS with a few scattered rhonchi, nml RR CV - RRR S1/S2. Tele showing occasiional ST, PVCs and 3 beat run NSVT. Abd - Soft, NT/ND, Positive BS Ext - No significant pedal edema; multiple digit amputations right hand Psych - Nml mood and affect Skin - Warm and dry Objective Data Vital Signs Vital Signs: Vital Signs - 24 hr 10/17/20 10:00 10/17/20 11:40 10/17/20 12:00 Temperature 97.6 F Pulse Rate 113 H 106 H 132 H Respiratory Rate 12 Blood Pressure 119/54 L Pulse Oximetry 99 100 10/17/20 14:00 10/17/20 15:19 10/17/20 16:00 Temperature 97.6 F 97.6 F Pulse Rate 104 H 116 H 112 H Respiratory Rate 20 12 Blood Pressure 109/69 136/64 Pulse Oximetry 100 100 10/17/20 16:28 10/17/20 16:38 10/17/20 16:48 Temperature Pulse Rate 86 88 86 Respiratory Rate 22 H 18 20 Blood Pressure 99/41 L 114/43 L 126/43 L Pulse Oximetry 99 98 96 10/17/20 17:30 10/17/20 18:00 10/17/20 20:00 Temperature 97.9 F Pulse Rate 117 H 100 Respiratory Rate 22 H Blood Pressure 133/69 Pulse Oximetry 98 95 10/17/20 20:43 10/17/20 20:47 10/17/20 20:52 Temperature Pulse Rate 100 100 101 H Respiratory Rate 20 20 Blood Pressure Pulse Oximetry 96 10/17/20 22:00 10/17/20 23:52 10/18/20 00:00 Temperature 97.8 F Pulse Rate 101 H 94 89 Respiratory Rate 18 Blood Pressure 118/40 L Pulse Oximetry 100 97 10/18/20 02:00 10/18/20 04:00 10/18/20 06:00 Temperature 97.6 F Pulse Rate 98 93 87 Respiratory Rate 20 Blood Pressure 129/60 Pulse Oximetry 100 10/18/20 06:33 10/18/20 06:49 10/18/20 08:00 Temperature 97.8 F Pulse Rate 100 106 H 88 Respiratory Rate 22 H 22 H 24
--- NOTE | 2020-10-18 12:46 | PC.NURSE ---
[facility] flyer was given to patient in cardiac admission folder.
[2020-10-18] MEDS: FUROSEMIDE INJ 40 MG/4 ML VIAL IV PUSH (14:51)
[2020-10-18 16:46] LABS: Hematocrit 30.5 % (42.0-52.0); Hemoglobin 10.1 g/dL (14.0-18.0)
[2020-10-18] MEDS: ATORVASTATIN 40 MG TABLET PO (16:56)
[2020-10-18] MEDS: TAMSULOSIN HCL 0.4 MG CAPSULE 0.8 MG PO (21:31)
[2020-10-18] MEDS: PANTOPRAZOLE 40 MG TABLET PO (21:31)
[2020-10-19] VITALS (18 sets, daily range): BP systolic 113–147; BP diastolic 42–65; PULSE 63–102; RESP 12–20; TEMP 36.7–37.3; O2SAT 95–100
[2020-10-19 01:21] LABS: Hematocrit 23.3 % (42.0-52.0); Hemoglobin 7.8 g/dL (14.0-18.0)
[2020-10-19 05:12] LABS: Basophils Percent Auto 0.2 % (0.2-1.2); Eosinophils Absolute Auto 0.1 K/mm3 (0-0.3); Hematocrit 23.3 % (42.0-52.0); Hemoglobin 7.8 g/dL (14.0-18.0); Immature Granulocyte Absolute 0.18 K/mm3 (0.00-0.031); Immature Granulocyte Percent A 1.3 % (0-0.5); Lymphocytes Absolute Auto 1.62 K/mm3 (0.9-3.2); Mean Corpuscular HGB Conc 33.5 g/dl (32-36); Mean Corpuscular Hemoglobin 30.1 pg (26-34); Mean Platelet Volume 9.6 fl (7.4-10.4); Monocytes Absolute Auto 1.3 K/mm3 (0.1-0.6); Monocytes Percent Auto 9.7 % (2.6-8.5); Neutrophils Absolute Auto 10.3 K/mm3 (1.3-6.7); Neutrophils Percent Auto 75.8 % (45.5-73.1); Nucleated Red Blood Cells Perc 0.2 % (0.0-0.2); Platelet Count Result 227 k/mm3 (150-375); Red Blood Count 2.59 M/mm3 (4.6-6.20); Red Cell Distribution Width 14.4 % (11.5-14.5); White Blood Count 13.6 K/mm3 (4.5-10.0)
[2020-10-19 05:24] LABS: Anion Gap 3 mmol/L (8-16); Blood Urea Nitrogen 29 mg/dL (9-20); Calcium 7.2 mg/dL (8.4-10.2); Carbon Dioxide 31 mmol/L (22-30); Chloride 102 mmol/L (98-107); Estimated CRCL calculation 46 ml/min; Estimated Glomerular Filt Rate 58; Glucose 106 mg/dL (75-110); Potassium 3.6 mmol/L (3.4-5.0); Sodium 136 mmol/L (137-145)
[2020-10-19] MEDS: ALBUTEROL SULFATE (*SP) AEROSOL 1 PUFF 2 PUFF INHALATION (05:51)
[2020-10-19] MEDS: IPRATROPIUM BR 0.02% INH SOLN 0.5 MG/2.5 ML VIAL INHALATION ×2 (08:57→19:48)
[2020-10-19] MEDS: ALBUTEROL SULFATE NEB 2.5 MG/0.5 ML INH INHALATION ×2 (08:57→19:47)
[2020-10-19] MEDS: BUDESONIDE RESPULE NEB 0.5 MG/2 ML AMP INHALATION ×2 (08:57→19:48)
[2020-10-19] MEDS: ONDANSETRON INJ 4 MG/2 ML VIAL IV PUSH ×3 (08:58→20:27)
[2020-10-19] MEDS: NYSTATIN 100,000 UNITS/ML SUSP 5 ML ORAL.SUSP PO (10:41)
[2020-10-19] MEDS: ALPRAZolam (*CRX) 0.25 MG TABLET PO ×2 (10:41→20:24)
--- NOTE | 2020-10-19 11:58 | PM.IMPN ---
Progress Note: A&P Assessment and Plan (1) Diverticulosis of colon with hemorrhage: Code(s): K57.31 - Diverticulosis of large intestine without perforation or abscess with bleeding Status: Acute (2) Acute blood loss anemia: Code(s): D62 - Acute posthemorrhagic anemia Status: Acute (3) Ischemic cardiomyopathy: Code(s): I25.5 - Ischemic cardiomyopathy Status: Acute (4) Orthostatic hypotension: Code(s): I95.1 - Orthostatic hypotension Status: Inactive (5) Chronic obstructive pulmonary disease: Code(s): J44.9 - Chronic obstructive pulmonary disease, unspecified Status: Acute (6) Chronic respiratory failure with hypoxia, on home oxygen therapy: Code(s): J96.11 - Chronic respiratory failure with hypoxia; Z99.81 - Dependence on supplemental oxygen Status: Acute Additional Plan The patient was directly admitted to the IMU from [place] ED for further treatment and evaluation of a lower GI bleed. His hemoglobin was 10.6 on admission. He received 2L of IV fluids for HoTN (BP as low as 79/50). On admission, Hgb 8.2. Patient type and crossed and transfused 2U PRBC. GI consulted. Patient still had rectal bleeding with bowel prep. Colonoscopy 10/17 showing diverticulosis with evidence of recent bleeding. EGD showing gastritis. Acute GI bleed from diverticulosis. Hgb monitored closely and Hgb dropped to 6.6 yesterday morning and thus was transfused 2U PRBC (10/18). Still having maroon stools. Hgb climbed to 10.1 before dropping to 7.8 last night. Hgb unchanged today. Continue to hold ASA. Plan for GenSurg evaluation as outpatient to see if surgery would be appropiate. Continue serial HH to ensure stability. Continue PPI for the gastritis. Okay to move to [address] [place] [address]. Subjective Date/time seen: 10/19/20 11:58 Interval history: 80yo male CAD, iCMP, COPD, chronic respiratory failure (2L), BPH and history of GI bleed x3 although no source found who is being directly admitted to the IMU from ED at [place] for further treatment and evaluation of a lower GI bleed. Does not feel well. No CP or SOB. Ate breakfast this morning but had nausea afterward. Had large dark maroon stool earlier. Feels tremulous; no excessive alcohol use hx. Exam Narrative: Exam Narrative: AF 98.7 126/52 100 20 95% 3L Gen - NARD lying almost flat in bed Chest - distant, clear BS, nml RR CV - RRR S1/S2. Tele showing PVCs Abd - Soft, NT/ND, Positive BS Ext - No pedal edema, right hand digit amuptions Psych - Nml mood and affect Skin - Warm and dry Objective Data Vital Signs Vital Signs: Vital Signs - 24 hr 10/18/20 12:00 10/18/20 12:04 10/18/20 12:26 Temperature 98.1 F 97.7 F 97.7 F Pulse Rate 82 86 80 Respiratory Rate 18 18 18 Blood Pressure 104/41 L 124/54 L 130/60 Pulse Oximetry 95 98 100 10/18/20 13:25 10/18/20 14:00 10/18/20 14:26 Temperature 97.7 F 97.7 F Pulse Rate 82 84 85 Respiratory Rate 18 16 Blood Pressure 128/54 L 135/57 L Pulse Oximetry 100 98 10/18/20 16:00 10/18/20 18:00 10/18/20 20:00 Temperature 96.9 F L 98.1 F Pulse Rate 94 84 75 Respiratory Rate 22 H 16 Blood Pressure 156/59 H 126/53 L Pulse Oximetry 100 99 10/18/20 21:26 10/18/20 21:29 10/18/20 21:38 Temperature Pulse Rate 101 H 101 H 103 H Respiratory Rate 22 H 20 Blood Pressure Pulse Oximetry 96 10/18/20 22:00 10/19/20 00:00 10/19/20 02:00 Temperature 98.4 F Pulse Rate 85 92 77 Respiratory Rate 18 Blood Pressure 113/42 L Pulse Oximetry 100 10/19/20 04:00 10/19/20 06:00 10/19/20 08:00 Temperature 98.1 F 98.7 F Pulse Rate 63 77 86 Respiratory Rate 20 12 Blood Pressure 114/49 L 126/52 L Pulse Oximetry 100 100 10/19/20 08:55 10/19/20 08:58 10/19/20 09:13 Temperature Pulse Rate 92 96 Respiratory Rate 20 20 Blood Pressure Pulse Oximetry 98 98 10/19/20 10:00 10/19/20 11:45 Temperature Pulse Rate
[2020-10-19 12:29] LABS: Hematocrit 24.7 % (42.0-52.0); Hemoglobin 8.1 g/dL (14.0-18.0)
--- NOTE | 2020-10-19 13:05 | WPDGIPROGNO ---
Progress Note: A&P Assessment and Plan (1) Acute blood loss anemia: Code(s): D62 - Acute posthemorrhagic anemia Status: Acute Assessment and Plan: his hemoglobin actually has increased this morning. He has had no further bloody stools since his colonoscopy. (2) Diverticulosis of colon with hemorrhage: Code(s): K57.31 - Diverticulosis of large intestine without perforation or abscess with bleeding Status: Acute Assessment and Plan: If any further bleeding I would obtain a tagged red blood cell scan. It appears however that the bleeding has stopped. I would hope that he could stay off aspirin a few more days (3) Ischemic cardiomyopathy: Code(s): I25.5 - Ischemic cardiomyopathy Status: Acute Assessment and Plan: this as well as his other comorbidities make surgery an unfavorable option. Also, his diverticular disease is fairly extensive. If was confined to the sigmoid colon then we could opt for a sigmoid resection knowing that the bleeding would be less likely to recur. In his case I think will hope that he has no further episodes. Subjective Date/time seen: 10/19/20 13:05 He ate breakfast earlier but now feels a bit nauseated and queasy. He has passed some very dark stool this morning. His hemoglobin however is stable Review of Systems Review of Systems: All systems reviewed & are unremarkable except as noted in HPI and below Exam Const: General: comfortable, alert and tired appearing Nutritional Appearance: underweight Orientation/consciousness: patient oriented x3 Resp: Effort & Inspection: able to speak in complete sentences and prolonged expiratory phase Auscultation: clear to auscultation bilaterally Cardio: Rhythm: regular rhythm GI: Auscultation: normal bowel sounds Skin: General skin exam: ecchymosis Neuro: General: patient oriented x3 Objective Data Vital Signs Vital Signs: Vital Signs - 24 hr 10/18/20 13:25 10/18/20 14:00 10/18/20 14:26 Temperature 36.5 C 36.5 C Pulse Rate 82 84 85 Respiratory Rate 18 16 Blood Pressure 128/54 L 135/57 L Pulse Oximetry 100 98 10/18/20 16:00 10/18/20 18:00 10/18/20 20:00 Temperature 36.1 C L 36.7 C Pulse Rate 94 84 75 Respiratory Rate 22 H 16 Blood Pressure 156/59 H 126/53 L Pulse Oximetry 100 99 10/18/20 21:26 10/18/20 21:29 10/18/20 21:38 Temperature Pulse Rate 101 H 101 H 103 H Respiratory Rate 22 H 20 Blood Pressure Pulse Oximetry 96 10/18/20 22:00 10/19/20 00:00 10/19/20 02:00 Temperature 36.9 C Pulse Rate 85 92 77 Respiratory Rate 18 Blood Pressure 113/42 L Pulse Oximetry 100 10/19/20 04:00 10/19/20 06:00 10/19/20 08:00 Temperature 36.7 C 37.1 C Pulse Rate 63 77 86 Respiratory Rate 20 12 Blood Pressure 114/49 L 126/52 L Pulse Oximetry 100 100 10/19/20 08:55 10/19/20 08:58 10/19/20 09:13 Temperature Pulse Rate 92 96 Respiratory Rate 20 20 Blood Pressure Pulse Oximetry 98 98 10/19/20 10:00 10/19/20 11:45 10/19/20 12:00 Temperature 37.0 C Pulse Rate 100 85 Respiratory Rate 12 Blood Pressure 136/54 L Pulse Oximetry 95 99 Intake/Output Intake/Output: Intake & Output 10/16/20 10/17/20 10/18/20 10/19/20 23:59 23:59 23:59 23:59 Intake Total 0 990 2120 640 Output Total 400 1450 2025 700 Balance -400 -460 95 -60 Meds/Results Medications: Active Medications Generic Name Dose Route Start Last Admin Trade Name Freq PRN Reason Stop Dose Admin Acetaminophen 650 mg 10/16/20 20:16 Acetaminophen 325 Mg Tablet PO Q4H PRN Mild Pain (1-3) or Fever Albuterol 2.5 mg 10/16/20 22:34 10/19/20 08:57 Albuterol Sulfate Neb 2.5 Mg/0.5 Ml Inh INHALATION 2.5 mg Q12HRT GINA Administration Albuterol 2 puff 10/18/20 14:13 10/19/20 05:51 Albuterol Sulfate (*Sp) Aerosol 1 Puff INHALATION 2 puff Q6HRT PRN Administration Shortness Of Breath Alprazolam 0.25 mg 10/16/20 2
[2020-10-19 18:21] LABS: Hematocrit 24.8 % (42.0-52.0); Hemoglobin 8.1 g/dL (14.0-18.0)
[2020-10-19] MEDS: TAMSULOSIN HCL 0.4 MG CAPSULE 0.8 MG PO (20:25)
[2020-10-19] MEDS: PANTOPRAZOLE 40 MG TABLET PO (20:25)
[2020-10-20 03:47] LABS: Hematocrit 23.2 % (42.0-52.0); Hemoglobin 7.7 g/dL (14.0-18.0)
[2020-10-20 04:00] VITALS: BP 129/51; PULSE 78; RESP 20; TEMP 36.8; O2SAT 98
[2020-10-20 06:03] LABS: Hematocrit 24.6 % (42.0-52.0); Hemoglobin 7.9 g/dL (14.0-18.0); Mean Corpuscular HGB Conc 32.1 g/dl (32-36); Mean Corpuscular Hemoglobin 30.5 pg (26-34); Mean Platelet Volume 9.5 fl (7.4-10.4); Platelet Count Result 229 k/mm3 (150-375); Red Blood Count 2.59 M/mm3 (4.6-6.20); Red Cell Distribution Width 14.6 % (11.5-14.5); White Blood Count 11.2 K/mm3 (4.5-10.0)
[2020-10-20 06:32] LABS: Anion Gap 4 mmol/L (8-16); Blood Urea Nitrogen 13 mg/dL (9-20); Calcium 7.9 mg/dL (8.4-10.2); Carbon Dioxide 31 mmol/L (22-30); Chloride 104 mmol/L (98-107); Estimated CRCL calculation 75 ml/min; Estimated Glomerular Filt Rate > 60; Glucose 108 mg/dL (75-110); Potassium 3.4 mmol/L (3.4-5.0); Sodium 139 mmol/L (137-145)
[2020-10-20] MEDS: ALBUTEROL SULFATE NEB 2.5 MG/0.5 ML INH INHALATION (07:36)
[2020-10-20] MEDS: IPRATROPIUM BR 0.02% INH SOLN 0.5 MG/2.5 ML VIAL INHALATION (07:36)
[2020-10-20] MEDS: BUDESONIDE RESPULE NEB 0.5 MG/2 ML AMP INHALATION (07:36)
[2020-10-20 07:38] VITALS: O2SAT 93
[2020-10-20 07:49] VITALS: PULSE 93; RESP 20
[2020-10-20 08:00] VITALS: BP 127/44; PULSE 92; RESP 22; TEMP 36.8; O2SAT 94; O2SAT 98
[2020-10-20 08:04] VITALS: PULSE 96; RESP 20
[2020-10-20] MEDS: ALPRAZolam (*CRX) 0.25 MG TABLET PO (08:38)
[2020-10-20] MEDS: POTASSIUM CHLORIDE 20 MEQ TABLET.ER PO (08:39)
[2020-10-20] MEDS: FUROSEMIDE 40 MG TABLET PO (08:39)
[2020-10-20 09:00] VITALS: BP 120/56; PULSE 70; RESP 20; TEMP 36.8; O2SAT 100
--- NOTE | 2020-10-20 10:52 | PCNFU ---
Nutrition Follow-Up Complete: Nutrition Diagnosis: Inadequate oral intake related to GI bleeding as evidenced by clear liquid/NPO diet. Nutrition Goal: Patient to meet estimated nutritional needs. Goal is in progress, patient is trying to eat more. Nutrition recommendation: Continue with Regular diet and Ensure compact (220 calories and 9 grams of protein) supplement BID. Last recorded weight is 72.4 kg. Bowel Motility: Last documented on 10/19. Labs Reviewed: Hgb (7.9), Hct (24.6), Ca (7.9) Meds Noted: Albuterol, Xanax, Lipitor, Lasix, Atrovent, Potassium Chloride, Zofran, Proventil, Protonix Additional Notes: Skin is within normal limits, no causes of concern documented. Patient was nauseous yesterday, but is trying to eat more today. Patient likes the Ensure compact supplement. Agree with diet orders. Follow up every 5 days.
--- NOTE | 2020-10-20 13:17 | PCNSR ---
On 10/20/20, the student,Marlen Wong, provided care and completed [facility] documentation on this patient. I have reviewed the student's documentation and agree with the findings.
--- NOTE | 2020-10-20 13:36 | PM.DS ---
DS: Admitting Diagnosis Admitting Diagnosis Admitting Diagnosis: Bright red blood per rectum DS: Discharge Diagnosis Discharge Diagnosis (1) Diverticulosis of colon with hemorrhage: Code(s): K57.31 - Diverticulosis of large intestine without perforation or abscess with bleeding Status: Acute (2) Acute blood loss anemia: Code(s): D62 - Acute posthemorrhagic anemia Status: Acute (3) Ischemic cardiomyopathy: Code(s): I25.5 - Ischemic cardiomyopathy Status: Acute (4) Orthostatic hypotension: Code(s): I95.1 - Orthostatic hypotension Status: Inactive (5) Chronic obstructive pulmonary disease: Code(s): J44.9 - Chronic obstructive pulmonary disease, unspecified Status: Acute (6) Chronic respiratory failure with hypoxia, on home oxygen therapy: Code(s): J96.11 - Chronic respiratory failure with hypoxia; Z99.81 - Dependence on supplemental oxygen Status: Acute DS: Summary Hospital Course Reason for hospitalization: 80yo male CAD, iCMP, COPD, chronic respiratory failure (2L), BPH and history of GI bleed x3 although no source found who was directly admitted to the IMU from ED at [place] for further treatment and evaluation of a lower GI bleed. Please see H&P for details. Hospital Course: The patient was directly admitted to the IMU from [place] ED for further treatment and evaluation of a lower GI bleed. His hemoglobin was 10.6 on admission at the ED. He received 2L of IV fluids for HoTN (BP as low as 79/50). ASA held. On admission here, Hgb 8.2. Patient was type and crossed and transfused 2U PRBC. GI consulted. Patient still had rectal bleeding with bowel prep. Colonoscopy 10/17 showing diverticulosis with evidence of recent bleeding. EGD showing gastritis. Acute GI bleed was from diverticulosis. Hgb monitored closely post endoscopy and Hgb dropped to 6.6 and thus was transfused 2U PRBC (10/18). He was still having maroon stools but Hgb climbed to 10.1 before dropping to 7.8. Hgb remained unchanged tin the high 7 range. Continue to hold ASA. Plan for GenSurg evaluation as outpatient to see if surgery would be appropriate. We continued PPI for the gastritis. Patient feels well. No further maroon stools. Good UOP. Eating okay. He has been up walking in the room. Status at Discharge Cognitive/behavioral status at discharge: stable Time Spent with Patient Time attestation: Total time spent providing and/or coordinating discharge services: 35 minutes Time spent: Greater than 30 minutes Exam Narrative: Exam Narrative: AF 98.3 120/56 70 20 100% 3L Gen - NARD lying semi-recumbent in bed Chest - distant, clear BS, nml RR CV - RRR S1/S2. Tele showing PVCs Abd - Soft, NT/ND, Positive BS Ext - No pedal edema. multiple finger amputations to the right hand Psych - Nml mood and affect Skin - Warm and dry DS: Data Data Completed and Pending Labs on day of discharge: Labs from last 24 hours 10/20/20 10/20/20 10/20/20 05:30 05:30 00:46 WBC 11.2 H RBC 2.59 L Hgb 7.9 L 7.7 L Hct 24.6 L 23.2 L MCV 95.0 D MCH 30.5 MCHC 32.1 RDW 14.6 H Plt Count 229 MPV 9.5 Sodium 139 Potassium 3.4 Chloride 104 Carbon Dioxide 31 H Anion Gap 4 L BUN 13 D Creatinine 0.70 Estim Creat Clear Calc 75 Estimated GFR > 60 Glucose 108 Calcium 7.9 L 10/19/20 18:15 WBC RBC Hgb 8.1 L Hct 24.8 L MCV MCH MCHC RDW Plt Count MPV Sodium Potassium Chloride Carbon Dioxide Anion Gap BUN Creatinine Estim Creat Clear Calc Estimated GFR Glucose Calcium Discharge Plan Discharge Attending physician on discharge: Nuno Matos Consulting providers: Chip Baer Discharging Clinician: Nuno Matos Anticipated Discharge Date/Time: 10/20/20 13:48 Patient Disposition: Home, Self-Care Activity: as tolerated Diet: regular Dischar
== END 2020-10-20 15:32 | disposition home or self-care (01) | DRG 378 ==
PROVIDERS: Internal Medicine Gastroenterology; Physician Assistant; Admitting Provider Family Medicine; PCP Emergency Medicine; Visit Provider Internal Medicine
PROC: 0DJ08ZZ Inspection of Upper Intestinal Tract, Via Natural or Artificial Opening Endoscopic (ICD-10-PCS; CPT 43235; principal; 2020-10-17 15:30)
DX: K57.31 Diverticulosis of large intestine without perforation or abscess with bleeding (principal); D62 Acute posthemorrhagic anemia; J96.11 Chronic respiratory failure with hypoxia; I25.5 Ischemic cardiomyopathy; I95.1 Orthostatic hypotension; J44.9 Chronic obstructive pulmonary disease, unspecified; N40.0 Benign prostatic hyperplasia without lower urinary tract symptoms; I25.10 Atherosclerotic heart disease of native coronary artery without angina pectoris; F41.8 Other specified anxiety disorders; M19.90 Unspecified osteoarthritis, unspecified site; K29.70 Gastritis, unspecified, without bleeding; Z99.81 Dependence on supplemental oxygen; I25.2 Old myocardial infarction; Z95.5 Presence of coronary angioplasty implant and graft; F43.10 Post-traumatic stress disorder, unspecified; Z86.73 Personal history of transient ischemic attack (TIA), and cerebral infarction without residual deficits; Z98.42 Cataract extraction status, left eye; Z98.41 Cataract extraction status, right eye; Z95.810 Presence of automatic (implantable) cardiac defibrillator; Z87.891 Personal history of nicotine dependence
CPT/HCPCS: 36415; 36430; 80048; 83735; 85014; 85018; 85025; 85027; 86850; 86900; 86901; 86920; 87081; 94640; A9270; J1940; J2405; J2704; J7050; J7120; P9016

== ENCOUNTER 2021-01-20 14:57 | Outpatient (CLI) | payer MEDICARE, OTHER, SELFPAY ==
[2021-01-20 15:30] LABS: Creatinine Urine 46.18 mg/dL (40-278)
[2021-01-20 15:32] LABS: Total Volume 24 Hour Urine 1950 ml
[2021-01-24 13:31] LABS: Total Volume 1550 mL; Urine Calcium 8.1 mg/dL
== END 2021-01-20 14:58 | disposition home or self-care (01) ==
LOC: CHSLAB 15:03
PROVIDERS: Visit Provider Emergency Medicine
DX: E21.3 Hyperparathyroidism, unspecified (principal); E55.9 Vitamin D deficiency, unspecified
CPT/HCPCS: 81050; 82340; 82570

== ENCOUNTER 2021-03-05 13:00 | Outpatient (CLI) | payer MEDICARE, OTHER, SELFPAY ==
--- NOTE | ~2021-03-05 | CT_ITS ---
EXAMINATION: CT lung screening DATE: 03/05/2021 13:53 INDICATION: Personal history of tobacco dependence, prior smoker TECHNIQUE: Computed tomography (CT) of the chest was performed without intravenous contrast. The dose -length product (DLP) was 82.92 mGy-cm. Automated exposure control and iterative reconstruction techn ique were employed. COMPARISON: 11/22/2019 FINDINGS: There is a stable 6 mm subpleural nodule of the left lower lobe, consistent with old granul omatous disease. Calcified pulmonary nodules and calcified right hilar and mediastinal lymph nodes ar e consistent with old granulomatous disease. No suspicious pulmonary nodules are identified. There is moderate emphysema. The lungs are free of acute opacities. A single lead pacemaker/AICD of the left chest wall ends with its lead in the right ventricle. Subendocardial fat deposition in the interventr icular septum, anterior wall, and apex of the left ventricle is consistent with prior myocardial infa rction.. There are bridging osteophytes at multiple levels in the spine, consistent with diffuse idio pathic skeletal hyperostosis (DISH). IMPRESSION: 1. Lung-RADS category 2: Benign appearance or behavior. Continue annual screening with noncontrast lo w-dose chest CT in 12 months. Reviewed, dictated and finalized at location [facility]. IMPRESSION: 1. Lung-RADS category 2: Benign appearance or behavior. Continue annual screeni ng with noncontrast low-dose chest CT in 12 months.
== END 2021-03-05 13:01 | disposition home or self-care (01) ==
LOC: CHSIMG 13:05
DX: Z12.2 Encounter for screening for malignant neoplasm of respiratory organs (principal); Z87.891 Personal history of nicotine dependence
CPT/HCPCS: 71271

== ENCOUNTER 2021-03-16 12:18 | Outpatient (CLI) | payer MEDICARE, OTHER, SELFPAY ==
--- NOTE | ~2021-03-16 | CT_ITS ---
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 Abdominal aneurysm. TECHNIQUE: Spiral CT of the abdomen was performed without contrast. Axial, coronal and sagittal efra ges of the abdomen and pelvis were reviewed. The dose-length product (DLP) for this examination was 228.66 mGy-cm. The exposure was tailored according to patient size (auto mA exposure control), and i terative reconstruction (ASIR) was used as additional dose reduction technique. Comparison is made to prior examination from 09/16/2020. FINDINGS: There is a 1 cm left adrenal gland adenoma. The liver, spleen, adrenal glands and pancreas are otherwise unremarkable. Gallbladder is unremarkable. No biliary obstruction. There is no neph rolithiasis or hydronephrosis. Mild bilateral renal atrophy. No retroperitoneal lymphadenopathy. T here is moderate to severe scattered arteriosclerotic disease. Mildly aneurysmal mid abdominal aorta up to 3.3 cm, was 3.2 cm in September. Mild ectasia of both common iliac arteries. The appendix is normal. There is extensive colonic diverticulosis. There is no adjacent inflammatory change to suggest diverticulitis. The stomach and small bowel are unremarkable. There is expected a mount of colonic stool. No free intraperitoneal gas. The heart is normal in size. There are no p ericardial or pleural effusions. Cardiac pacemaker/AICD leads. Basilar emphysema. Evidence of hyperin flation. Right lower lobe granuloma, scarring. There are no osteoblastic or osteolytic lesions ident ified. IMPRESSION: 1. 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 Consider f ollow-up in 1 or 2 years. 2. Left adrenal adenoma. 3. Colonic diverticulosis. Reviewed, dictated and finalized at location A. TRUCTION IRONWORKER IMPRESSION: 1. 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 Consider follow-up in 1 or 2 years. 2. Left adrenal adenoma. 3. Colonic diverticulosis.
--- NOTE | ~2021-03-16 | US_ITS ---
EXAMINATION: US carotid duplex BI DATE: 03/16/2021 12:51 INDICATION: AAA. Carotid stenosis. TECHNIQUE: Grayscale, color Doppler, and pulsed Doppler images of the cervical carotid arteries were obtained. The degree of vessel stenosis is placed in one of the following categories: normal, <50%, 5 0-69%, >=70% but less than near-occlusion, near-occlusion, or total occlusion. Note that percent sten osis relative to normal distal artery lumen diameter is indirectly measured from velocity measurement s as described by Lul, et al. Radiology 2003; [id number]. Notes: Normal: Peak systolic velocity <125 centimeters/sec and no plaque <50%. Peak systolic velocity <125 ( EDV <40; ICA/CCA PSV ratio <2.0; used these factors only a tandem lesions or low cardiac output or co ntralateral disease) 50-69 %: PSV 125-230 (EDV 40-100; ratio 2-4) >= 70% but less than near occlusion: PSV greater than 230 (EDV > 100; ratio> 4.0) Near Occlusion: PSV that is variable; markedly narrowed lumen Occlusion: Absent flow on color/spectral Doppler and no lumen on palafox scale. COMPARISON: None. FINDINGS: RIGHT: The right common carotid artery (CCA) peak systolic velocity (PSV) is 59 cm/s. The right internal car otid artery (ICA) PSV is 113 cm/s. The right ICA end-diastolic velocity (EDV) is 21 cm/s. The right I CA/CCA PSV ratio is 1.9. The external carotid artery (ECA) PSV is 83 cm/s. There is antegrade flow in the right vertebral artery. LEFT: The left CCA PSV is 124 cm/s. The left ICA PSV is 105 cm/s. The left ICA EDV is 34 cm/s. The left ICA /CCA PSV ratio is 0.8. The ECA PSV is 40 cm/s. There is antegrade flow in the left vertebral artery. IMPRESSION: 1. Less than 50% stenosis in the right internal carotid artery by sonographic criteria. 2. Less than 50% stenosis in the left internal carotid artery by sonographic criteria. Reviewed, dictated and finalized at [facility]. Reviewed, dictated and finalized at location A. GER CAR IMPRESSION: 1. Less than 50% stenosis in the right internal carotid artery by sonographic c ozzie. 2. Less than 50% stenosis in the left internal carotid artery by sonographic joe hutchison.
== END 2021-03-16 12:19 | disposition home or self-care (01) ==
LOC: CHSIMG 12:20
DX: I65.23 Occlusion and stenosis of bilateral carotid arteries (principal); I71.4 Abdominal aortic aneurysm, without rupture
CPT/HCPCS: 74150; 93880

== ENCOUNTER 2021-05-17 12:26 | Outpatient (CLI) | payer MEDICARE, OTHER, SELFPAY ==
--- NOTE | ~2021-05-17 | CT_ITS ---
EXAMINATION:CT diagnostic chest wo con DATE: 05/17/2021 13:31 INDICATION: Tobacco use. TECHNIQUE: Computed tomography (CT) of the chest was performed without intravenous contrast. Automate d exposure control and iterative reconstruction technique were employed. The dose-length product (DLP ) was 184.36 mGy-cm. COMPARISON: Chest CT 03/05/2021, 11/22/2019 FINDINGS: There is severe emphysema. There is a chronic 5 mm nodule in left lower lobe, likely benign . A calcified right lung nodule and calcified right hilar and mediastinal lymph nodes are consistent with old granulomatous disease. No pleural effusion. There is mild atelectasis bilaterally. No pleura l effusion. The heart size is normal. There are coronary artery calcifications. 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 No pericardial effusion. Calcifications in the spl een are consistent with old granulomatous disease. There is a left chest pacer/defibrillator with natasha d in right ventricle. There are bridging endplate osteophytes at multiple levels in the spine, consis tent with diffuse idiopathic skeletal hyperostosis (DISH). IMPRESSION: 1. Severe emphysema. Reviewed, dictated and finalized at location B. RECALL INSTRUCTOR IMPRESSION: 1. Severe emphysema.
== END 2021-05-17 12:27 | disposition home or self-care (01) ==
DX: R93.89 Abnormal findings on diagnostic imaging of other specified body structures (principal); F17.210 Nicotine dependence, cigarettes, uncomplicated; J44.9 Chronic obstructive pulmonary disease, unspecified
CPT/HCPCS: 71250

== ENCOUNTER 2021-07-30 08:11 | Outpatient (CLI) | payer MEDICARE, OTHER, SELFPAY ==
--- NOTE | ~2021-07-30 | US_ITS ---
EXAMINATION: US aorta DATE: 07/30/2021 08:56 INDICATION: Aortic ectasia. TECHNIQUE: Grayscale, color Doppler, and pulsed Doppler images of the aorta and common iliac arteries were obtained. COMPARISON: CT abdomen 03/16/2021 FINDINGS: The aorta demonstrates a 3.2 cm fusiform infrarenal aneurysm. The common iliac arteries are obscured by bowel gas. IMPRESSION: 1. Stable 3.2 cm fusiform aneurysm of infrarenal aorta. Reviewed, dictated and finalized at location A.
--- NOTE | ~2021-07-30 | US_ITS ---
EXAMINATION: US carotid duplex BI DATE: 07/30/2021 08:56 INDICATION: Aortic ectasia. Carotid atherosclerosis and stenosis. TECHNIQUE: Grayscale, color Doppler, and pulsed Doppler images of the cervical carotid arteries were obtained. The degree of vessel stenosis is placed in one of the following categories: normal, <50%, 5 0-69%, >=70% but less than near-occlusion, near-occlusion, or total occlusion. Note that percent sten osis relative to normal distal artery lumen diameter is indirectly measured from velocity measurement s as described by Lul, et al. Radiology 2003; 229:340-346. COMPARISON: None. FINDINGS: RIGHT: The right common carotid artery (CCA) peak systolic velocity (PSV) is 59 cm/s. The right internal car otid artery (ICA) PSV is 21 cm/s. The right ICA end-diastolic velocity (EDV) is 5 cm/s. The right ICA /CCA PSV ratio is 0.5. Atypical high resistance waveforms in the right CCA and ICA with decreased and significantly varying peak systolic velocities in the right ICA consistent with likely near occlusio n stenosis in the more distal right internal ICA. The external carotid artery (ECA) PSV is 92 cm/s. T here is antegrade flow in the right vertebral artery. LEFT: The left CCA PSV is 118 cm/s. The left ICA PSV is 128 cm/s. The left ICA EDV is 27 cm/s. The left ICA /CCA PSV ratio is 1.1. Grayscale and color Doppler images including secondary Doppler criteria yield an estimate of <50% diameter reduction from plaque in the ICA. The ECA PSV is 60 cm/s. There is anteg rade flow in the left vertebral artery. IMPRESSION: 1. Likely near occlusion stenosis in the right internal carotid artery. Consider CT angiogram for mor e definitive determination. 2. <50% stenosis in the left internal carotid artery. 3. Intermittent cardiac arrhythmia. Correlate with EKG. Reviewed, dictated and finalized at location A. IMPRESSION: 1. Likely near occlusion stenosis in the right internal carotid artery. Conside r CT angiogram for more definitive determination. 2. <50% stenosis in the left internal carotid artery. 3. Intermittent cardiac arrhythmia. Correlate with EKG.
== END 2021-07-30 08:12 | disposition home or self-care (01) ==
DX: I65.29 Occlusion and stenosis of unspecified carotid artery (principal); I77.811 Abdominal aortic ectasia
CPT/HCPCS: 76775; 93880

== ENCOUNTER 2022-01-11 15:23 | Outpatient (CLI) | payer MEDICARE, OTHER, SELFPAY | END 2022-01-11 15:24 | disposition home or self-care (01) | LOC: CHSCARD 15:30 | DX: F19.20 Other psychoactive substance dependence, uncomplicated (principal) | CPT/HCPCS: 99199 ==

== ENCOUNTER 2022-01-14 12:38 | Outpatient (CLI) | payer MEDICARE, OTHER, SELFPAY ==
--- NOTE | 2022-01-14 13:15 | ECG_ITS ---
Measurements Intervals [place] Rate: 68 P: 76 NV: 170 QRS: 87 QRSD: 89 T: -36 QT: 353 QTc: 376 Interpretive Statements SINUS RHYTHM ATRIAL PREMATURE COMPLEXES ANTEROSEPTAL INFARCT, AGE INDETERMINATE T WAVE ABNORMALITY IN LATERAL LEADS- CONSIDER ISCHEMIA BASELINE ARTIFACT- I, II, III ,AVF, V4-V6 ABNORMAL ECG NO PREVIOUS ECG AVAILABLE FOR COMPARISON Electronically Signed On 01-14-2022 14:29:40 CDT by De Alcocer D.O.
== END 2022-01-14 12:39 | disposition home or self-care (01) ==
LOC: CHSCARD 12:45
DX: F19.20 Other psychoactive substance dependence, uncomplicated (principal)
CPT/HCPCS: 93005

== ENCOUNTER 2022-04-19 08:28 | Outpatient (CLI) | payer MEDICARE, OTHER, SELFPAY ==
--- NOTE | ~2022-04-19 | CT_ITS ---
CT ANGIOGRAM NECK AND HEAD History: Arteriosclerosis of carotid artery. Technique: Serial spiral axial images through the head and neck were obtained during arterial phase I V injection of 100 cc of Omnipaque 350. 3-D postprocessing and MIP images were then reconstructed on the remote workstation. Dose reduction technique was used on this scan by utilizing automated exposur e control and iterative reconstruction technique. The dose-length product (DLP) was 1592.05 mGy-cm. CTA neck findings: There are scattered calcified plaques of the right common carotid artery, more ex tensive plaques at the right carotid bifurcation region and along the proximal right internal carotid artery. The proximal right internal carotid artery demonstrates 95% stenosis relative to the normal distal artery lumen diameter, with string sign of the cervical internal carotid artery just distal t o calcified plaque (series 609 image 33). Right external carotid artery is patent. Scattered calcified plaques are present along the course of the left common carotid artery, more prom inent plaques at the left carotid bifurcation region. The proximal left internal carotid artery demon strates 10% stenosis relative to the normal distal artery lumen diameter. Bilateral vertebral arteries are widely patent. CTA head findings: Distal vertebral arteries, basilar artery, and posterior cerebral arteries are wid pawan patent. Left posterior cerebral artery is predominantly fed via left posterior communicating alexandra ry. Bilateral anterior and bilateral middle cerebral arteries are widely patent. Distal left internal car otid artery is patent, with atherosclerotic calcifications throughout the cavernous portion. String s ign of the distal right internal carotid artery noted, with the right middle and anterior cerebral ar teries likely predominantly filling via collateral flow through the telida of [place]. Impression: Critical (95%) stenosis of the proximal right internal carotid artery, with string sign of the majori ty of the right internal carotid artery, as detailed above. 10% stenosis of the proximal left internal carotid artery. Right middle and anterior cerebral arteries are well-opacified, presumably due to collateral flow thr ough the telida of [place]. Reviewed, dictated and finalized at location [] TIPPING MACHINE TENDER Impression: Critical (95%) stenosis of the proximal right internal carotid artery, with str ing sign of the majority of the right internal carotid artery, as detailed abov e. 10% stenosis of the proximal left internal carotid artery. Right middle and anterior cerebral arteries are well-opacified, presumably due to collateral flow through the telida of [place].
[2022-04-19 08:58] LABS: Estimated Glomerular Filt Rate > 60
== END 2022-04-19 08:29 | disposition home or self-care (01) ==
LOC: CHSIMG 08:33
DX: I65.23 Occlusion and stenosis of bilateral carotid arteries (principal)
CPT/HCPCS: 70496; 70498; Q9967

== ENCOUNTER 2022-06-26 09:40 | Outpatient (CLI) | payer MEDICARE, OTHER, SELFPAY ==
--- NOTE | ~2022-06-26 | US_ITS ---
EXAMINATION: US aorta DATE: 06/26/2022 10:44 INDICATION: Abdominal aortic aneurysm. TECHNIQUE: Grayscale, color Doppler, and pulsed Doppler images of the aorta and common iliac arteries were obtained. COMPARISON: None. FINDINGS: The aorta demonstrates a 3.2 cm infrarenal abdominal aortic aneurysm. The right common iliac artery 1 .2. The left common iliac artery 1.3. The renal artery origins were not well visualized. IMPRESSION: Stable, 3.2 cm infrarenal abdominal aortic aneurysm. Consider follow-up ultrasound aorta in 3 years, per [employer] guidelines. Reviewed, dictated and finalized at location K. ESCENT COUNSELOR IMPRESSION: Stable, 3.2 cm infrarenal abdominal aortic aneurysm. Consider follow-up ultraso und aorta in 3 years, per [employer] and [employer] for Vascul[employer] guidelines.
--- NOTE | ~2022-06-26 | US_ITS ---
EXAMINATION: US carotid duplex BI DATE: 06/26/2022 10:43 INDICATION: TECHNIQUE: Grayscale, color Doppler, and pulsed Doppler images of the cervical carotid arteries were obtained. The degree of vessel stenosis is placed in one of the following categories: normal, <50%, 5 0-69%, >=70% but less than near-occlusion, near-occlusion, or total occlusion. Note that percent sten osis relative to normal distal artery lumen diameter is indirectly measured from velocity measurement s as described by Lul, et al. Radiology 2003; 229:340-346. Notes: Normal: Peak systolic velocity <125 centimeters/sec and no plaque <50%. Peak systolic velocity <125 ( EDV <40; ICA/CCA PSV ratio <2.0; used these factors only a tandem lesions or low cardiac output or co ntralateral disease) 50-69 %: PSV 125-230 (EDV 40-100; ratio 2-4) >= 70% but less than near occlusion: PSV greater than 230 (EDV > 100; ratio> 4.0) Near Occlusion: PSV that is variable; markedly narrowed lumen Occlusion: Absent flow on color/spectral Doppler and no lumen on palafox scale. COMPARISON: CTA dated 04/19/2022. FINDINGS: RIGHT: The right common carotid artery (CCA) peak systolic velocity (PSV) is 57 cm/s. The right internal car otid artery (ICA) PSV is 36 cm/s. The right ICA end-diastolic velocity (EDV) is 0 cm/s. The right ICA /CCA PSV ratio is 0.63. The external carotid artery (ECA) PSV is 72 cm/s. There is antegrade flow in the right vertebral artery. LEFT: The left CCA PSV is 116 cm/s. The left ICA PSV is 82 cm/s. The left ICA EDV is 25 cm/s. The left ICA/ CCA PSV ratio is 0.7. The ECA PSV is 72 cm/s. There is antegrade flow in the left vertebral artery. IMPRESSION: 1. Loss of diastolic flow in the right carotid artery with large amount of atherosclerotic plaque and diminished systolic velocities. Ultrasound likely underestimates the degree of stenosis on the right . Consider correlation with CT angiography to assess for interval change compared with prior study da demetria 04/19/2022. 2. Less than 50% stenosis in the left internal carotid artery by sonographic criteria. Reviewed, dictated and finalized at location B. R PRODUCTS INSPECTOR IMPRESSION: 1. Loss of diastolic flow in the right carotid artery with large amount of athe rosclerotic plaque and diminished systolic velocities. Ultrasound likely undere stimates the degree of stenosis on the right. Consider correlation with CT albert ography to assess for interval change compared with prior study dated 2. 2. Less than 50% stenosis in the left internal carotid artery by sonographic cr iteria.
== END 2022-06-26 09:41 | disposition home or self-care (01) ==
DX: I77.811 Abdominal aortic ectasia (principal); I10 Essential (primary) hypertension; I65.23 Occlusion and stenosis of bilateral carotid arteries
CPT/HCPCS: 76775; 93880

== ENCOUNTER 2022-08-08 01:53 | Inpatient (IN) | payer MEDICARE, OTHER, SELFPAY ==
[2022-08-08] VITALS (28 sets, daily range): BP systolic 100–155; BP diastolic 46–86; PULSE 70–118; RESP 18–30; TEMP 36.3–36.8; O2SAT 90–99; BMI 21.6
--- NOTE | ~2022-08-08 | XR_ITS ---
EXAMINATION: XR chest 1V portable DATE: 08/08/2022 02:39 INDICATION: Shortness of breath TECHNIQUE: frontal view of the chest was obtained. COMPARISON: Chest radiograph dated 09/16/[address] dated 05/17/2021 and 08/08/2022 FINDINGS: Emphysema. No focal airspace opacities, pulmonary edema, pleural effusion or pneumothorax. The cardio mediastinal silhouette is normal. Include cardiac pacemaker/defibrillator with lead tip at the right ventricle. IMPRESSION: 1. Emphysema. Reviewed, dictated and finalized at location A. IMPRESSION: 1. Emphysema.
--- NOTE | ~2022-08-08 | CT_ITS ---
EXAMINATION: CTA chest PE protocol DATE: 08/08/2022 03:37 INDICATION: Respiratory failure TECHNIQUE: Computed tomography (CT) pulmonary angiogram of the chest was performed with 100 mL Omnipa que-350 intravenous contrast. Additional 3D reconstructions utilizing coronal maximum intensity proje ction (MIP) were performed. Automated exposure control and iterative reconstruction technique were em ployed. The dose-length product was 348.86 mGy-cm. COMPARISON: 05/17/2021 FINDINGS: Good contrast opacification of the pulmonary arteries. There is mild streak artifact from dense contr ast in the superior vena cava and right atrium. There is also mild motion artifact most prominent at the lower lung zones where it decreases sensitivity in some of the smaller subsegmental pulmonary art eries. No pulmonary embolism. Mild atelectasis at the lingula, right middle and right lower lobes. Ca lcified right lower lobe nodules along with calcified right hilar and mediastinal lymph nodes and sca ttered hepatic and splenic calcifications, all consistent with old granulomatous disease. No change i n a likely benign chronic 5 mm noncalcified left lower lobe nodule. No pneumonia, pulmonary edema, pl eural effusion or pneumothorax. Heart size is normal. No pericardial effusion. Atherosclerotic gomez ry artery calcification. Fatty atrophy of the myocardium along the anterior left ventricular wall at the apex consistent with prior infarct. Cardiac pacemaker/AICD leads with distal tip at the apex of t he right ventricle. Atherosclerotic ossifications along the normal caliber thoracic aorta with no dis section. There are bridging osteophytes at multiple levels in the spine, consistent with diffuse idio pathic skeletal hyperostosis (DISH). IMPRESSION: 1. No pulmonary embolism or other acute cardiopulmonary disease. 2. Severe emphysema. Reviewed, dictated and finalized at location A.
--- NOTE | 2022-08-08 02:03 | ED.SOB ---
HPI - SOB/Dyspnea General Chief Complaint: Shortness of Breath/Dyspnea Stated Complaint: SOB Source: patient and EMS Limitations: no limitations History of Present Illness HPI Narrative: 82-year-old male ex-smoker with 67 pack-year smoking history quit in 2018, regular alcohol use, anxiety/depression, PTSD, CVA/TIA, chronic respiratory failure on home oxygen 3 liters/minute secondary to CHRISTINE, COPD( FVC 2.14, 54% of predicted FEV1 0.66 22% predicted FEV1/FVC ratio of 31%, DLCO of 54% corrected for alveolar volume, elevated TLC, RV), CAD status post stent, CHF with an EF of 30-35% Status post ICD, presents to the ER with -- worsening shortness of breath for the past few days. He had a fall at 7:00 p.m. following which his shortness of breath got worse. He called EMS who noted his oxygen saturation to be in the 80%. The patient received IV magnesium, IV Solu-Medrol and DuoNeb treatment and was brought to the ER. In the ER the patient was noted to have an oxygen saturation of 99% on 3 L of O2. -- Cough with mucoid sputum no chest pain. No fever or chills. patient stated that he missed a couple of doses of Lasix. MD elicited complaint: shortness of breath and cough Pertinent past history: COPD and congestive heart failure Onset (ago): day(s) Timing: constant Severity: severe Exacerbating factors: nothing Relieving factors: oxygen Known history of: COPD and congestive heart failure Associated symptoms: denies other symptoms, cough and sputum production Treatment prior to arrival: oxygen, bronchodilator and other ( IV magnesium, IV Solu-Medrol.) Related Data Home oxygen amount: 3 liters Home Medications Medication Instructions Recorded Confirmed atorvastatin 40 mg tablet 40 mg PO QPM 02/25/20 08/08/22 coenzyme Q10 30 mg capsule (Co 200 mg PO QPM 02/25/20 08/08/22 Q-10) cyanocobalamin (vitamin B-12) 1,000 mcg PO DAILY 02/25/20 08/08/22 1,000 mcg capsule alprazolam 0.25 mg tablet (Xanax) 0.25 mg PO BID 10/16/20 08/08/22 budesonide 0.25 mg/2 mL suspension 0.5 mg inhalation BID 10/16/20 08/08/22 for nebulization (Pulmicort) calcium carbonate 600 mg calcium 600 mg PO DAILY 10/16/20 08/08/22 (1,500 mg) tablet carvedilol 3.125 mg tablet 3.125 mg PO BID 10/16/20 08/08/22 formoterol fumarate 20 mcg/2 mL 20 mcg inhalation BID 10/16/20 08/08/22 solution for nebulization (Perforomist) furosemide 40 mg tablet 40 mg PO DAILY 10/16/20 08/08/22 guaifenesin 100 mg/5 mL oral liquid 200 mg PO Q4H PRN cough 10/16/20 08/08/22 ipratropium 0.5 mg-albuterol 3 mg 3 ml inhalation BID 10/16/20 08/08/22 (2.5 mg base)/3 mL nebulization soln ipratropium 20 mcg-albuterol 100 1 puff inhalation TID 10/16/20 08/08/22 mcg/actuation mist for inhalation (Combivent Respimat) nitroglycerin 0.4 mg sublingual 0.4 mg sublingual PRN PRN Chest 10/16/20 08/08/22 tablet (Nitrostat) Pain potassium chloride 20 mEq 20 meq PO BID 10/16/20 08/08/22 tablet,extended release(part/cryst) spironolactone 25 mg tablet 25 mg PO DAILY 10/16/20 08/08/22 triamcinolone acetonide 0.1 % 1 applic topical BID 10/16/20 08/08/22 topical cream Allergies Allergy/AdvReac Type Severity Reaction Status Date / Time tramadol Allergy Intermediate Hives Verified 08/08/22 02:02 amoxicillin Allergy Mild Rash Verified 08/08/22 02:02 doxycycline Allergy Mild Rash Verified 08/08/22 02:02 latex Allergy Mild Rash Verified 08/08/22 02:02 Review of Systems Review of Systems: All systems reviewed & are unremarkable except as noted in HPI and below Constitutional: Constitutional: Reports as per HPI Eyes: Eyes: Reports as per HPI and Reports no additional eye complaints ENT: Reports system reviewed and no additional complaints, except as documented and Reports as per HPI Cardiovascular: Cardiovascular: Reports as per HPI and Reports no additional cardiovascular complaints Respiratory: Respiratory: Reports as per HPI, Reports no additional respiratory complaints, Repor
--- NOTE | 2022-08-08 02:08 | ECG_ITS ---
Measurements Intervals [place] Rate: 112 P: 77 WI: 156 QRS: 64 QRSD: 90 T: 87 QT: 291 QTc: 397 Interpretive Statements VERY POOR QUALITY ECG BECAUSE OF BASELINE MOTION ARTIFACT SINUS TACHYCARDIA POOR R-WAVE PROGRESSION NO FURTHER DIAGNOSIS CAN NOT BE MADE SINCE THE TRACING IS A VERY POOR QUALITY COMPARED TO ECG 01/14/2022 13:15:21 SINUS TACHYCARDIA NOW PRESENT Electronically Signed On 08-09-2022 7:38:14 CDT by Joss Stewart M.D.
[2022-08-08 02:28] LABS: HCO3 ABG 30.7 mmol/L (23-29); Oxygen Content ABG 17.3 %vol (16.0-22.0); Oxygen Saturation ABG 96.2 % (95-97); Oxyhemoglobin 95.5 % (94-100); PCO2 ABG 55.4 mmHg (35-45); PO2 ABG 96.3 mmHg (75-85); Total Hemoglobin 12.8 g/dL (12.0-18.0); pH ABG 7.36 (7.35-7.45)
[2022-08-08 02:31] LABS: Basophils Absolute Auto 0.04 K/mm3 (0.00-0.10); Basophils Percent Auto 0.3 % (0.0-1.0); Eosinophils Percent Auto 2.3 % (1.0-6.0); Hematocrit 38.5 % (37.0-46.0); Hemoglobin 12.4 g/dL (12.4-15.3); Immature Granulocyte Absolute 0.06 K/mm3 (0.00-0.00); Immature Granulocyte Percent A 0.5 % (0.0-0.0); Lymphocytes Percent Auto 10.8 % (18.0-42.0); Mean Corpuscular HGB Conc 32.2 g/dL (32.0-36.0); Mean Corpuscular Hemoglobin 31.2 pg (27.0-31.0); Mean Platelet Volume 9.5 fl (8.7-11.0); Monocytes Absolute Auto 0.69 K/mm3 (0.10-0.90); Monocytes Percent Auto 5.3 % (2.0-11.0); Neutrophils Absolute Auto 10.4 K/mm3 (1.7-7.2); Neutrophils Percent Auto 80.8 % (50.0-70.0); Platelet Count Result 242 K/mm3 (150-420); Red Blood Count 3.97 M/mm3 (4.70-6.10); Red Cell Distribution Width 12.6 % (11.6-14.4); White Blood Count 12.9 K/mm3 (4.8-10.8)
[2022-08-08 02:33] LABS: Device NASAL CANNULA; Modified Allen's Test Pass; Site Drawn LEFT RADIAL
[2022-08-08] MEDS: FUROSEMIDE INJ 20 MG/2 ML VIAL IV PUSH (02:40)
[2022-08-08 02:45] LABS: Partial Thromboplastin Time 27.1 SEC (23.90-30.70); Prothrombin Time 10.9 Seconds (9.50-12.10)
[2022-08-08 02:55] LABS: Lactic Acid Reflex 0.4 mmol/L (0.4-2.0)
[2022-08-08 03:01] LABS: Alanine Aminotransferase 20 U/L (16-63); Albumin Level 3.9 g/dL (3.4-5.0); Alkaline Phosphatase 97 U/L (46-116); Anion Gap 5 mmol/L (8-16); Aspartate Amino Transferase 20 U/L (15-37); Bilirubin,Total 0.9 mg/dL (0.00-1.00); Blood Urea Nitrogen 16 mg/dL (7-18); Carbon Dioxide 35 mmol/L (21-32); Chloride 103 mmol/L (98-108); Estimated CRCL calculation 52 ml/min; Estimated Glomerular Filt Rate > 60; Glucose 139 mg/dL (70-99); NT Pro B Type Natriuretic Pept 916 pg/mL (0-450); Osmolality Calculated 299 mOsm/kg (285-295); Potassium 3.7 mmol/L (3.5-5.1); Sodium 143 mmol/L (136-145); Total Protein 7.5 g/dL (6.4-8.2)
[2022-08-08 03:06] LABS: Troponin I 22.9 ng/L (0.00-60.4)
[2022-08-08 03:08] LABS: Influenza A QL RT-PCR Negative (Negative); Influenza B QL RT-PCR Negative (Negative); SARS-CoV-2 RNA PCR Negative (Negative)
[2022-08-08 03:09] LABS: RSV RNA, RT-PCR Negative (Negative)
--- NOTE | 2022-08-08 03:54 | PC.NURSE ---
Pt became very short of breath and tachycardic transferring from bedside commode back to bed. Pt O2 sat dropped to 86%. O2 was raised to 4L briefly while pt recovered. Pt quickly ford back to 98% and was dropped back to 2L of O2 via NC and is remaining at 98% oxygen saturation.
--- NOTE | 2022-08-08 06:35 | PC.NURSE ---
Patient admitted to room 208 per stretcher from the ER, is alert and oriented times 4, alert to room as well.
[2022-08-08] MEDS: IPRATROPIUM 0.5 MG/ALBUTEROL SULFATE 2.5 MG AMPUL.NEB 3 ML INHALATION ×3 (08:38→19:07)
[2022-08-08] MEDS: BUDESONIDE RESPULE NEB 0.25 MG/2 ML AMP 0.5 MG INHALATION ×2 (09:04→19:31)
[2022-08-08] MEDS: FUROSEMIDE INJ 40 MG/4 ML VIAL IV PUSH ×2 (09:28→16:25)
[2022-08-08] MEDS: methylPREDNISolone SOD SUCC 40 MG VIAL IV PUSH ×3 (09:32→14:38)
[2022-08-08] MEDS: SPIRONOLACTONE 12.5 MG TABLET PO (09:33)
[2022-08-08] MEDS: POTASSIUM CHLORIDE 20 MEQ TABLET PO (09:34)
[2022-08-08] MEDS: CYANOCOBALAMIN 1,000 MCG TABLET 1000 MCG PO (09:35)
[2022-08-08] MEDS: carvediloL 3.125 MG TABLET PO (09:36)
[2022-08-08] MEDS: ALPRAZolam (*CRX) 0.25 MG TABLET PO ×2 (09:36→16:25)
[2022-08-08] MEDS: ASPIRIN 81 MG ENTERIC TABLET PO (09:37)
[2022-08-08] MEDS: FERROUS SULFATE 324 MG TABLET PO ×2 (09:39→16:25)
[2022-08-08] MEDS: TRIAMCINOLONE ACET 0.1% CREAM 15 GM TUBE 1 APPLIC TOPICAL (09:46)
[2022-08-08] MEDS: ENOXAPARIN 40 MG/0.4 ML SYRINGE SUB-Q (10:33)
[2022-08-08] MEDS: CALCIUM CARBONATE (OSCAL) 500 MG TABLET 600 MG PO ×2 (12:00→14:34)
[2022-08-08] MEDS: ATORVASTATIN 40 MG TABLET PO (16:25)
[2022-08-08] MEDS: NYSTATIN 100,000 UNITS/ML SUSP 5 ML ORAL.SUSP PO ×3 (16:26→20:40)
[2022-08-08] MEDS: PANTOPRAZOLE 40 MG TABLET PO (20:30)
[2022-08-08] MEDS: TAMSULOSIN HCL 0.4 MG CAPSULE 0.8 MG PO (20:30)
--- NOTE | 2022-08-08 21:00 | PC.NURSE ---
held B/P med due to blood pressure 107/46 in rt arm, 107/46 in left arm. patient states that he does get some low readings at timel. Hr 76, he was sitting on the side of the bed at the time of vitals, he did not have any complaints of dizziness or lightheaded. will continue to monitor for any further s/s of hypotension.
[2022-08-09] VITALS (20 sets, daily range): BP systolic 98–124; BP diastolic 46–58; PULSE 67–98; RESP 16–20; TEMP 36.2–36.6; O2SAT 94–99
[2022-08-09] MEDS: IPRATROPIUM 0.5 MG/ALBUTEROL SULFATE 2.5 MG AMPUL.NEB 3 ML INHALATION ×5 (00:22→23:32)
[2022-08-09] MEDS: guaiFENesin 200 MG/10 ML UDC PO (00:52)
[2022-08-09 05:22] LABS: Hematocrit 33.6 % (37.0-46.0); Hemoglobin 11.1 g/dL (12.4-15.3); Mean Corpuscular Hemoglobin 31.4 pg (27.0-31.0); Mean Corpuscular Volume 95.2 fL (78.0-102.0); Mean Platelet Volume 9.4 fl (8.7-11.0); Platelet Count Result 214 K/mm3 (150-420); Red Blood Count 3.53 M/mm3 (4.70-6.10); Red Cell Distribution Width 12.7 % (11.6-14.4); White Blood Count 14.3 K/mm3 (4.8-10.8)
[2022-08-09 05:36] LABS: Alanine Aminotransferase 19 U/L (16-63); Albumin Level 3.3 g/dL (3.4-5.0); Alkaline Phosphatase 78 U/L (46-116); Anion Gap 6 mmol/L (8-16); Aspartate Amino Transferase 14 U/L (15-37); Bilirubin,Total 0.8 mg/dL (0.00-1.00); Blood Urea Nitrogen 25 mg/dL (7-18); Carbon Dioxide 34 mmol/L (21-32); Chloride 100 mmol/L (98-108); Estimated CRCL calculation 49 ml/min; Estimated Glomerular Filt Rate > 60; Glucose 119 mg/dL (70-99); Osmolality Calculated 295 mOsm/kg (285-295); Potassium 4.3 mmol/L (3.5-5.1); Sodium 140 mmol/L (136-145); Total Protein 6.6 g/dL (6.4-8.2)
[2022-08-09] MEDS: BUDESONIDE RESPULE NEB 0.25 MG/2 ML AMP 0.5 MG INHALATION ×2 (06:13→18:27)
[2022-08-09] MEDS: CYANOCOBALAMIN 1,000 MCG TABLET 1000 MCG PO (09:00)
[2022-08-09] MEDS: carvediloL 3.125 MG TABLET PO ×2 (09:00→21:06)
[2022-08-09] MEDS: FUROSEMIDE INJ 40 MG/4 ML VIAL IV PUSH ×2 (09:03→17:22)
[2022-08-09] MEDS: ALPRAZolam (*CRX) 0.25 MG TABLET PO ×2 (09:04→17:16)
[2022-08-09] MEDS: SPIRONOLACTONE 12.5 MG TABLET PO (09:04)
[2022-08-09] MEDS: ENOXAPARIN 40 MG/0.4 ML SYRINGE SUB-Q (09:04)
[2022-08-09] MEDS: NYSTATIN 100,000 UNITS/ML SUSP 5 ML ORAL.SUSP PO ×4 (09:04→21:06)
[2022-08-09] MEDS: methylPREDNISolone SOD SUCC 40 MG VIAL IV PUSH ×3 (09:04→17:27)
[2022-08-09] MEDS: ASPIRIN 81 MG ENTERIC TABLET PO (09:05)
[2022-08-09] MEDS: POTASSIUM CHLORIDE 20 MEQ TABLET PO (09:05)
[2022-08-09] MEDS: FERROUS SULFATE 324 MG TABLET PO ×2 (09:06→17:16)
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
[2022-08-09] MEDS: CALCIUM CARBONATE (OSCAL) 500 MG TABLET 600 MG PO (12:00)
[2022-08-09] MEDS: ATORVASTATIN 40 MG TABLET PO (17:12)
[2022-08-09] MEDS: TAMSULOSIN HCL 0.4 MG CAPSULE 0.8 MG PO (21:06)
[2022-08-09] MEDS: PANTOPRAZOLE 40 MG TABLET PO (21:06)
[2022-08-10] VITALS (17 sets, daily range): BP systolic 105–121; BP diastolic 45–55; PULSE 68–108; RESP 14–20; TEMP 36.3–36.7; O2SAT 94–99
[2022-08-10 05:37] LABS: Hematocrit 34.4 % (37.0-46.0); Hemoglobin 11.3 g/dL (12.4-15.3); Mean Corpuscular HGB Conc 32.8 g/dL (32.0-36.0); Mean Corpuscular Hemoglobin 31.3 pg (27.0-31.0); Mean Corpuscular Volume 95.3 fL (78.0-102.0); Mean Platelet Volume 9.7 fl (8.7-11.0); Platelet Count Result 238 K/mm3 (150-420); Red Blood Count 3.61 M/mm3 (4.70-6.10); Red Cell Distribution Width 12.9 % (11.6-14.4); White Blood Count 13.1 K/mm3 (4.8-10.8)
[2022-08-10 05:53] LABS: Alanine Aminotransferase 17 U/L (16-63); Albumin Level 3.4 g/dL (3.4-5.0); Alkaline Phosphatase 70 U/L (46-116); Anion Gap 6 mmol/L (8-16); Aspartate Amino Transferase 14 U/L (15-37); Bilirubin,Total 0.5 mg/dL (0.00-1.00); Blood Urea Nitrogen 26 mg/dL (7-18); Calcium 9.3 mg/dL (8.5-10.1); Carbon Dioxide 35 mmol/L (21-32); Chloride 99 mmol/L (98-108); Estimated CRCL calculation 48 ml/min; Estimated Glomerular Filt Rate > 60; Glucose 130 mg/dL (70-99); Osmolality Calculated 296 mOsm/kg (285-295); Sodium 140 mmol/L (136-145); Total Protein 6.8 g/dL (6.4-8.2)
[2022-08-10] MEDS: ALPRAZolam (*CRX) 0.25 MG TABLET PO ×2 (08:37→17:52)
[2022-08-10] MEDS: SPIRONOLACTONE 12.5 MG TABLET PO (08:38)
[2022-08-10] MEDS: POTASSIUM CHLORIDE 20 MEQ TABLET PO (08:38)
[2022-08-10] MEDS: FERROUS SULFATE 324 MG TABLET PO ×2 (08:39→17:52)
[2022-08-10] MEDS: ASPIRIN 81 MG ENTERIC TABLET PO (08:39)
[2022-08-10] MEDS: carvediloL 3.125 MG TABLET PO ×2 (08:39→20:14)
[2022-08-10] MEDS: CYANOCOBALAMIN 1,000 MCG TABLET 1000 MCG PO (08:39)
[2022-08-10] MEDS: methylPREDNISolone SOD SUCC 40 MG VIAL IV PUSH ×2 (08:40→09:04)
[2022-08-10] MEDS: NYSTATIN 100,000 UNITS/ML SUSP 5 ML ORAL.SUSP PO ×3 (08:40→20:14)
[2022-08-10] MEDS: FUROSEMIDE INJ 40 MG/4 ML VIAL IV PUSH ×2 (08:40→17:52)
--- NOTE | 2022-08-10 08:58 | WPDPN ---
Progress Note: A&P Assessment and Plan (1) CHF exacerbation: Code(s): I50.9 - Heart failure, unspecified Status: Acute Assessment and Plan: ? Continue to monitor pulse oximetry ? CXR Severe emphysema. ? Continue inhaler/ nebs ? Continue steroids ? Continue the use of ABX ? (2) Benign prostatic hyperplasia: Code(s): N40.0 - Benign prostatic hyperplasia without lower urinary tract symptoms Status: Acute Assessment and Plan: Continue home medication (3) Ischemic cardiomyopathy: Code(s): I25.5 - Ischemic cardiomyopathy Status: Acute (4) PNA (pneumonia): Code(s): J18.9 - Pneumonia, unspecified organism Status: Acute Assessment and Plan: elevated wbc's continue azithromycin Rocephin continue supplementary oxygen blood culture pending Subjective Date/time seen: 08/10/22 08:58 Interval history: his condition has improved he does admit to weakness. patient will stay for an additional day for treatment. He lives at home alone and has a visual deficiency. The patient denies, CP, palpitation, extremity numbness, lightheadedness, dizziness, constipation, diarrhea, chills, or fever. Review of Systems Review of Systems: All systems reviewed & are unremarkable except as noted in HPI and below Exam Narrative: GENERAL: This is a well-nourished, well-developed patient, in no apparent distress. HEAD: normocephalic, atraumatic. EYES: PERRL. Sclera clear/white. Vision is grossly intact. EARS: External ears normal, auditory canals clear and without drainage, TMs normal without perforation. Hearing grossly intact. NOSE: External nose normal with no obvious nasal discharge, nares without redness, no rhinorrhea. THROAT: Mucous membranes moist, posterior pharynx clear. NECK: Neck supple, non-tender without lymphadenopathy, masses or thyromegaly. CARDIOVASCULAR: Regular rate and rhythm without murmurs, gallops, or rubs. RESPIRATORY: diminished GASTROINTESTINAL: Abdomen soft, non-tender, nondistended. Bowel sounds are active. No hepato-splenomegaly, or palpable masses. No guarding. SKIN: warm, intact with no suspicious lesions or rash, good texture and turgor. NEURO: awake, alert, and oriented to person, place and time. There were no obvious focal neurologic abnormalities. EXTREMITIES: Normal range of motion. No edema. No calf tenderness. Objective Data Vital Signs Vital Signs: Vital Signs - 24 hr 08/09/22 09:00 08/09/22 11:57 08/09/22 12:06 Temperature Pulse Rate 86 81 81 Respiratory Rate 18 18 Blood Pressure Pulse Oximetry 99 99 Oxygen Delivery Oxygen Flow Rate 3 3 08/09/22 12:00 08/09/22 12:00 08/09/22 16:00 Temperature 36.6 C Pulse Rate 79 93 81 Respiratory Rate 16 Blood Pressure 106/52 L Pulse Oximetry 95 Oxygen Delivery Nasal Cannula Oxygen Flow Rate 3 08/09/22 16:00 08/09/22 16:00 08/09/22 18:40 Temperature 36.4 C Pulse Rate 81 82 84 Respiratory Rate 16 18 18 Blood Pressure 120/58 L Pulse Oximetry 98 97 97 Oxygen Delivery Nasal Cannula Oxygen Flow Rate 3 4 4 08/09/22 20:00 08/09/22 20:00 08/09/22 21:06 Temperature 36.4 C Pulse Rate 98 78 90 Respiratory Rate 18 Blood Pressure 120/52 L Pulse Oximetry 98 Oxygen Delivery Nasal Cannula Oxygen Flow Rate 3 08/09/22 19:00 08/09/22 15:00 08/09/22 23:22 Temperature Pulse Rate 88 77 70 Respiratory Rate Blood Pressure Pulse Oximetry Oxygen Delivery Oxygen Flow Rate 08/09/22 23:32 08/09/22 23:41 08/09/22 23:32 Temperature 36.3 C L Pulse Rate 67 70 67 Respiratory Rate 20 19 19 Blood Pressure 124/55 L Pulse Oximetry 94 94 94 Oxygen Delivery Nasal Cannula Oxygen Flow Rate 4 4 4 08/10/22 03:14 08/10/22 04:00 08/10/22 05:00 Temperature 36.7 C Pulse Rate 70 68 Respiratory Rate 18 Blood Pressure 113/46 L Pulse Oximetry 97 97 Oxygen Delivery Nasal Cannula Nasal Cannula Oxygen
[2022-08-10] MEDS: BUDESONIDE RESPULE NEB 0.25 MG/2 ML AMP 0.5 MG INHALATION ×2 (09:07→20:48)
[2022-08-10] MEDS: LORazepam INJ (*CRX) 2 MG/ML VIAL 0.5 MG IV PUSH (09:57)
[2022-08-10] MEDS: ATORVASTATIN 40 MG TABLET PO (17:52)
[2022-08-10] MEDS: PANTOPRAZOLE 40 MG TABLET PO (20:14)
[2022-08-10] MEDS: TAMSULOSIN HCL 0.4 MG CAPSULE 0.8 MG PO (20:14)
[2022-08-10] MEDS: ALBUTEROL SULFATE (*SP) INHALER 2 PUFF INHALATION (20:49)
[2022-08-11] VITALS (12 sets, daily range): BP systolic 111–115; BP diastolic 51–55; PULSE 61–101; RESP 16–22; TEMP 36.3–36.6; O2SAT 97–100
[2022-08-11 05:01] LABS: Hematocrit 34.2 % (37.0-46.0); Hemoglobin 11.1 g/dL (12.4-15.3); Mean Corpuscular HGB Conc 32.5 g/dL (32.0-36.0); Mean Corpuscular Hemoglobin 31.1 pg (27.0-31.0); Mean Corpuscular Volume 95.8 fL (78.0-102.0); Mean Platelet Volume 9.4 fl (8.7-11.0); Platelet Count Result 251 K/mm3 (150-420); Red Blood Count 3.57 M/mm3 (4.70-6.10); Red Cell Distribution Width 12.7 % (11.6-14.4); White Blood Count 12.7 K/mm3 (4.8-10.8)
[2022-08-11 05:13] LABS: Alanine Aminotransferase 23 U/L (16-63); Albumin Level 3.2 g/dL (3.4-5.0); Alkaline Phosphatase 91 U/L (46-116); Anion Gap 1 mmol/L (8-16); Aspartate Amino Transferase 17 U/L (15-37); Bilirubin,Total 0.4 mg/dL (0.00-1.00); Blood Urea Nitrogen 36 mg/dL (7-18); Carbon Dioxide 39 mmol/L (21-32); Chloride 101 mmol/L (98-108); Estimated CRCL calculation 50 ml/min; Estimated Glomerular Filt Rate > 60; Glucose 105 mg/dL (70-99); Osmolality Calculated 300 mOsm/kg (285-295); Potassium 3.9 mmol/L (3.5-5.1); Sodium 141 mmol/L (136-145); Total Protein 6.5 g/dL (6.4-8.2)
[2022-08-11] MEDS: BUDESONIDE RESPULE NEB 0.25 MG/2 ML AMP 0.5 MG INHALATION (05:57)
--- NOTE | 2022-08-11 06:49 | PC.NURSE ---
Pt c/o being short of breath and his heart rate is too high; SAO2 is 98% with oxygen on at 3 liters per nasal cannula. Pt told that we were going to check to see what medication he could have at this time to help with his breathing. Pt verbalized his understanding.
[2022-08-11] MEDS: methylPREDNISolone SOD SUCC 40 MG VIAL IV PUSH (08:41)
[2022-08-11] MEDS: ASPIRIN 81 MG ENTERIC TABLET PO (08:41)
[2022-08-11] MEDS: POTASSIUM CHLORIDE 20 MEQ TABLET PO (08:41)
[2022-08-11] MEDS: FUROSEMIDE INJ 40 MG/4 ML VIAL IV PUSH (08:41)
[2022-08-11] MEDS: CYANOCOBALAMIN 1,000 MCG TABLET 1000 MCG PO (08:41)
[2022-08-11] MEDS: ALPRAZolam (*CRX) 0.25 MG TABLET PO (08:41)
[2022-08-11] MEDS: FERROUS SULFATE 324 MG TABLET PO (08:42)
[2022-08-11] MEDS: NYSTATIN 100,000 UNITS/ML SUSP 5 ML ORAL.SUSP PO ×2 (08:42→13:05)
[2022-08-11] MEDS: carvediloL 3.125 MG TABLET PO (08:42)
--- NOTE | 2022-08-11 09:17 | PM.DS ---
DS: Admitting Diagnosis Discharge Date 08/11/2022 Admitting Diagnosis congestive heart failure ,COPD PNA DS: Discharge Diagnosis Discharge Diagnosis (1) CHF exacerbation: Code(s): I50.9 - Heart failure, unspecified Status: Acute Assessment and Plan: ? Continue to monitor pulse oximetry ? CXR Severe emphysema. ? Continue inhaler/ nebs ? Continue steroids ? Continue the use of ABX ? (2) Benign prostatic hyperplasia: Code(s): N40.0 - Benign prostatic hyperplasia without lower urinary tract symptoms Status: Acute Assessment and Plan: Continue home medication (3) Ischemic cardiomyopathy: Code(s): I25.5 - Ischemic cardiomyopathy Status: Acute (4) PNA (pneumonia): Code(s): J18.9 - Pneumonia, unspecified organism Status: Acute Assessment and Plan: elevated wbc's continue azithromycin Rocephin continue supplementary oxygen blood culture pending DS: Summary Hospital Course Hospital Course: this is a 82-year-old male who presented to our emergency department? with complaints of shortness of breath.? Patient has a past medical history of COPD, depression anxiety, GI bleed, cardiomyopathy, mi, multiple finger amputation, rossi heart disease, and BPH.? Patient is a ex-smoker and he does use 3 L nasal cannula continuous.? Patient notes that for couple of weeks he has been experiencing shortness of breath and increased use of his nebulizer treatment which has not been effective.? Patient notes that the day that he came to our emergency department he heard something hit his house and attempted to go outside to see what the problem was as he was going outside he tripped over holes and had to crawl back in his home to sit in a chair he then called a neighbor to assist him.? Patient notes that later that night? his breathing and not improve so he proceeded to ED. Patient ? was admitted for COPD, congestive heart failure? and pneumonia.? patient admits that his condition has improved. He did have a couple of episodes where he got excited and became more short of breath this is normal for him. He does have chronic shortness of breath and uses home oxygen. The patient denies CP, palpitation, extremity numbness, lightheadedness, dizziness, constipation, diarrhea, chills, or fever. Time Spent with Patient Time attestation: Total time spent providing and/or coordinating discharge services: Exam Narrative: GENERAL: This is a well-nourished, well-developed patient, in no apparent distress. HEAD: normocephalic, atraumatic. EYES: PERRL. Sclera clear/white. Vision is grossly intact. EARS: External ears normal, auditory canals clear and without drainage, TMs normal without perforation. Hearing grossly intact. NOSE: External nose normal with no obvious nasal discharge, nares without redness, no rhinorrhea. THROAT: Mucous membranes moist, posterior pharynx clear. NECK: Neck supple, non-tender without lymphadenopathy, masses or thyromegaly. CARDIOVASCULAR: Regular rate and rhythm without murmurs, gallops, or rubs. RESPIRATORY: diminished GASTROINTESTINAL: Abdomen soft, non-tender, nondistended. Bowel sounds are active. No hepato-splenomegaly, or palpable masses. No guarding. SKIN: warm, intact with no suspicious lesions or rash, good texture and turgor. NEURO: awake, alert, and oriented to person, place and time. There were no obvious focal neurologic abnormalities. EXTREMITIES: Normal range of motion. No edema. No calf tenderness. DS: Data Data Completed and Pending Labs on day of discharge: Labs from last 24 hours 08/11/22 08/11/22 04:55 04:55 WBC 12.7 H RBC 3.57 L Hgb 11.1 L Hct 34.2 L MCV 95.8 MCH 31.1 H MCHC 32.5 RDW 12.7 Plt Count 251 MPV 9.4 Sodium 141 Potassium 3.9 Chloride 101 Carbon Dioxide 39 H Anion Gap 1 L BUN 36 H Creatinine 1.01 Estim Creat Clear Calc 50 Estimated GFR > 60 Glucose 105 H Calcula
[2022-08-11] MEDS: SPIRONOLACTONE 12.5 MG TABLET PO (10:12)
[2022-08-11] MEDS: CALCIUM CARBONATE (OSCAL) 500 MG TABLET 600 MG PO (12:02)
--- NOTE | 2022-08-11 15:45 | PC.NURSE ---
Patient called asking if he was due to receive a nebulizer soon. This nurse let patient know currently he could have an albuterol inhaler. The next neb due for him is his home medication that he brought in that we are out of. Patient angry, asking why he cant just have a duo neb. This nurse explained to patient that medication is not ordered for patient currently. Patient states just send me home then. Patient was going to wait till morning to discharge. RECREATION TEACHER Mele notified, States patient is okay to discharge tonight. Discharge order/instructions are in system.
--- NOTE | 2022-08-11 16:30 | PC.NURSE ---
Patient discharged home. IV site removed, tip intact. Dressing applied to site. All belongings gathered together and sent home with patient. All home medications returned. All discharge instructions and education reviewed with patient. Patient states understanding. Denies any questions at this time. Patient has calmed down and understands the situation and is okay with discharging home. Patient accompanied to front door via wheelchair. Left via private vehicle with friend.
--- NOTE | 2022-08-13 09:36 | PC.NURSE ---
Pt states he received and understood the discharge instructions. Pt has no other questions.
== END 2022-08-11 16:30 | disposition home or self-care (01) | DRG 291 ==
LOC: CHSED 05:24 → CHS2ND 08-09 07:19
PROVIDERS: Nurse Practitioner; Admitting Provider Internal Medicine; Emergency Provider Internal Medicine Critical Care Medicine; Visit Provider Internal Medicine
DX: I50.9 Heart failure, unspecified (principal); J18.9 Pneumonia, unspecified organism; J96.11 Chronic respiratory failure with hypoxia; M19.90 Unspecified osteoarthritis, unspecified site; J44.9 Chronic obstructive pulmonary disease, unspecified; I34.0 Nonrheumatic mitral (valve) insufficiency; I25.5 Ischemic cardiomyopathy; N40.0 Benign prostatic hyperplasia without lower urinary tract symptoms; F43.10 Post-traumatic stress disorder, unspecified; F32.A Depression, unspecified; F41.9 Anxiety disorder, unspecified; I25.2 Old myocardial infarction; Z86.73 Personal history of transient ischemic attack (TIA), and cerebral infarction without residual deficits; Z99.81 Dependence on supplemental oxygen; Z89.021 Acquired absence of right finger(s); Z95.810 Presence of automatic (implantable) cardiac defibrillator; Z79.82 Long term (current) use of aspirin
CPT/HCPCS: 36415; 36600; 71045; 71275; 80053; 82805; 83605; 83880; 84484; 85025; 85027; 85380; 85610; 85730; 87040; 87637; 93005; 94640; 96365; 96366; 96367; 96372; 96375; 96376; 97161; 99285; A9270; G0378; J0456; J0696; J1650; J1940; J2060; J2920; J7060; Q9967

== ENCOUNTER 2023-06-17 10:33 | Outpatient (CLI) | payer MEDICARE, OTHER, SELFPAY ==
--- NOTE | ~2023-06-17 | US_ITS ---
EXAMINATION: US carotid duplex BI DATE: 06/17/2023 11:19 INDICATION: Carotid atherosclerosis and stenosis TECHNIQUE: Grayscale, color Doppler, and pulsed Doppler images of the cervical carotid arteries were obtained. The degree of vessel stenosis is placed in one of the following categories: normal, <50%, 5 0-69%, >=70% but less than near-occlusion, near-occlusion, or total occlusion. Note that percent sten osis relative to normal distal artery lumen diameter is indirectly measured from velocity measurement s as described by Lul, et al. Radiology 2003; 229:340-346. COMPARISON: Carotid ultrasound dated 06/26/[address] angiogram dated 04/19/2022 FINDINGS: RIGHT: The right common carotid artery (CCA) peak systolic velocity (PSV) is 54 cm/s. The right internal car otid artery (ICA) PSV is 57 cm/s. The right ICA end-diastolic velocity (EDV) is 10 cm/s. The right IC A/CCA PSV ratio is 1.0. Grayscale and color Doppler images yield an estimate of <50% diameter reducti on from plaque in the right carotid bulb. There is a persistent high resistance waveform and relative ly low peak systolic velocities in the right common and internal carotid arteries when compared with the left is likely related to a high-grade stenosis in the more distal right internal carotid as seen on earlier brain and carotid CT angiogram The external carotid artery (ECA) PSV is 76 cm/s. There is antegrade flow in the right vertebral artery. LEFT: The left CCA PSV is 125 cm/s. The left ICA PSV is 93 cm/s. The left ICA EDV is 25 cm/s. The left ICA/ CCA PSV ratio is 0.7. Grayscale and color Doppler images yield an estimate of <50% diameter reduction from plaque in the ICA. The ECA PSV is 69 cm/s. There is antegrade flow in the left vertebral artery . IMPRESSION: 1. <50% stenosis in the right carotid bulb. Asymmetric decreased velocities and high resistance wavef orms in the right common carotid artery and more prominently in the more distal right internal caroti d artery are likely related to a previously identified extensive high-grade stenosis of the distal ce rvical and intracranial right internal carotid artery seen on CT angiogram dated 04/19/2022. 2. <50% stenosis in the left internal carotid artery. Reviewed, dictated and finalized at location A. DISPATCHER IMPRESSION: 1. <50% stenosis in the right carotid bulb. Asymmetric decreased velocities and high resistance waveforms in the right common carotid artery and more prominen tly in the more distal right internal carotid artery are likely related to a pr eviously identified extensive high-grade stenosis of the distal cervical and in tracranial right internal carotid artery seen on CT angiogram dated 04/19/2022. 2. <50% stenosis in the left internal carotid artery.
== END 2023-06-17 10:34 | disposition home or self-care (01) ==
LOC: CHSIMG 10:36
DX: I65.23 Occlusion and stenosis of bilateral carotid arteries (principal)
CPT/HCPCS: 93880

== ENCOUNTER 2023-08-25 20:08 | Observation (INO) | payer MEDICARE, OTHER, SELFPAY ==
[2023-08-25] VITALS (27 sets, daily range): BP systolic 89–133; BP diastolic 48–99; PULSE 77–104; RESP 11–24; TEMP 36.5–36.6; O2SAT 92–100
--- NOTE | ~2023-08-25 | XR_ITS ---
EXAMINATION: XR chest 1V portable Exam Date/Time: 08/25/2023 20:43 CDT HISTORY: dyspnea and cough Comparison: 08/08/2022, report only. RESULT: Lines, tubes, and devices: Left chest AICD, tip at the right ventricle. Lungs and pleura: Senescent/emphysematous change. Medial right lower lung granuloma. Cardiomediastinal silhouette: Unremarkable. Other: No acute osseous or upper abdominal finding. IMPRESSION: No acute cardiopulmonary process. Reviewed, dictated and finalized at location K.
--- NOTE | 2023-08-25 20:14 | ED.GENADULT ---
HPI - General Adult General Chief complaint: Shortness of Breath/Dyspnea <Meño Rdz DO - Last Filed: 08/26/23 10:09> Stated complaint: shortness of breath <Meño Rdz DO - Last Filed: 08/26/23 10:09> Time Seen by Provider: 08/25/23 20:13 <Meño Rdz DO - Last Filed: 08/26/23 10:09> History of Present Illness HPI narrative: Suman is an 83M with a PMH of COPD on supplemental oxygen, CAD, CHRISTINE, pacemaker in place, BPH that presented to the ED via EMS for dyspnea. Since last week he has been having worsening dyspnea and more phlegm production. It was getting worse so he had been using his duonebs a couple times today but he felt bad so he called EMS. He denies chest pain, nausea, vomiting but admits lightheadedness and diarrhea. He was given 125 of Solumedrol en route via EMS. <Meño Rdz DO - Last Filed: 08/26/23 10:09> Related Data Home medications: Home Medications Medication Instructions Recorded Confirmed atorvastatin 40 mg tablet 40 mg PO DAILY 02/25/20 08/25/23 coenzyme Q10 30 mg capsule (Co 200 mg PO QPM 02/25/20 08/25/23 Q-10) cyanocobalamin (vitamin B-12) 1,000 mcg PO DAILY 02/25/20 08/25/23 1,000 mcg capsule alprazolam 0.25 mg tablet (Xanax) 0.25 mg PO HS 10/16/20 08/25/23 budesonide 0.25 mg/2 mL suspension 0.5 mg inhalation BID 10/16/20 08/25/23 for nebulization (Pulmicort) calcium carbonate 600 mg PO DAILY 10/16/20 08/25/23 carvedilol 3.125 mg tablet 3.125 mg PO BID 10/16/20 08/25/23 formoterol fumarate 20 mcg/2 mL 20 mcg inhalation BID 10/16/20 08/25/23 solution for nebulization (Perforomist) furosemide 40 mg tablet 40 mg PO DAILY 10/16/20 08/25/23 ipratropium 0.5 mg-albuterol 3 mg 3 ml inhalation QID 10/16/20 08/25/23 (2.5 mg base)/3 mL nebulization soln ipratropium 20 mcg-albuterol 100 1 puff inhalation QID 10/16/20 08/25/23 mcg/actuation mist for inhalation (Combivent Respimat) nitroglycerin 0.4 mg sublingual 0.4 mg sublingual PRN PRN Chest 10/16/20 08/25/23 tablet (Nitrostat) Pain potassium chloride 20 mEq 20 meq PO DAILY 10/16/20 08/25/23 tablet,extended release(part/cryst) spironolactone 25 mg tablet 12.5 mg PO DAILY 10/16/20 08/25/23 triamcinolone acetonide 0.1 % 1 applic topical BID 10/16/20 08/25/23 topical cream ammonium lactate 12 % topical cream 1 applic topical BID 08/25/23 08/25/23 cholecalciferol (vitamin D3) 25 25 mcg PO DAILY 08/25/23 08/25/23 mcg (1,000 unit) tablet (Vitamin D3) loratadine 10 mg tablet (Claritin) 10 mg PO DAILY PRN Allergy Symptoms 08/25/23 08/25/23 sertraline 50 mg tablet 50 mg PO DAILY 08/25/23 08/25/23 <Meño Rdz DO - Last Filed: 08/26/23 10:09> Allergies/adverse reactions: Allergies Allergy/AdvReac Type Severity Reaction Status Date / Time tramadol Allergy Intermediate Hives Verified 08/08/22 02:02 amoxicillin Allergy Mild Rash Verified 08/08/22 02:02 doxycycline Allergy Mild Rash Verified 08/08/22 02:02 latex Allergy Mild Rash Verified 08/08/22 02:02 <Meño Rdz DO - Last Filed: 08/26/23 10:09> Review of Systems Review of Systems: All systems reviewed & are unremarkable except as noted in HPI and below <Meño Rdz DO - Last Filed: 08/26/23 10:09> [facility] Past Medical History Medical History: Medical History Arthritis Benign prostatic hyperplasia Chronic obstructive pulmonary disease Chronic respiratory failure with hypoxia, on home oxygen therapy Depression with anxiety GI bleed X3 since 2017. He has had multiple upper and lower endoscopies and no source of bleeding has ever been found. Ischemic cardiomyopathy Echocardiogram in March 2020 showed a severely enlarged left ventricular chamber with severely reduced systolic function and estimated EF of 30 to 35%. Mid to apical septum is thin and akinetic. Mid to apical anterior wall and apex are akinetic. Myocardial infarction
--- NOTE | 2023-08-25 20:18 | ECG_ITS ---
SEE SCANNED COPY FOR CONFIRMED REPORT MTDD
[2023-08-25 20:45] LABS: Basophils Absolute Auto 0.04 K/mm3 (0.00-0.10); Basophils Percent Auto 0.5 % (0.0-1.0); Eosinophils Absolute Auto 0.34 K/mm3 (0.02-0.50); Eosinophils Percent Auto 4.6 % (1.0-6.0); Hemoglobin 11.7 g/dL (12.4-15.3); Immature Granulocyte Absolute 0.02 K/mm3 (0.00-0.00); Immature Granulocyte Percent A 0.3 % (0.0-0.0); Lymphocytes Absolute Auto 1.85 K/mm3 (1.10-4.50); Lymphocytes Percent Auto 25.3 % (18.0-42.0); Mean Corpuscular HGB Conc 31.6 g/dL (32-36); Mean Corpuscular Hemoglobin 30.8 pg (27.0-31.0); Mean Corpuscular Volume 97.4 fL (78.0-102.0); Mean Platelet Volume 9.3 fl (8.7-11.0); Monocytes Absolute Auto 0.39 K/mm3 (0.10-0.90); Monocytes Percent Auto 5.3 % (2.0-11.0); Neutrophils Absolute Auto 4.68 K/mm3 (1.70-7.20); Platelet Count Result 212 K/mm3 (150-420); Red Cell Distribution Width 12.6 % (11.6-14.4); White Blood Count 7.3 K/mm3 (4.8-10.8)
[2023-08-25 20:59] LABS: Prothrombin Time 11.4 Seconds (9.50-12.1)
[2023-08-25 21:11] LABS: Alanine Aminotransferase 18 U/L (16-63); Albumin Level 3.3 g/dL (3.4-5.0); Alkaline Phosphatase 76 U/L (46-116); Anion Gap 5 mmol/L (4-12); Aspartate Amino Transferase 14 U/L (15-37); Bilirubin,Total 0.8 mg/dL (0.00-1.00); Blood Urea Nitrogen 32 mg/dL (7-18); Calcium 8.6 mg/dL (8.5-10.1); Carbon Dioxide 37 mmol/L (21-32); Chloride 103 mmol/L (98-108); Estimated CRCL calculation 39 ml/min; Estimated Glomerular Filt Rate 52; Glucose 103 mg/dL (70-99); Magnesium 1.8 mg/dL (1.8-2.4); NT Pro B Type Natriuretic Pept 759 pg/mL (0-450); Osmolality Calculated 306 mOsm/kg (285-295); Potassium 4.4 mmol/L (3.5-5.1); Sodium 145 mmol/L (136-145); Total Protein 6.4 g/dL (6.4-8.2); Troponin I 15.7 ng/L (0.00-60.4)
[2023-08-25 21:26] LABS: Influenza A QL RT-PCR Negative (Negative); Influenza B QL RT-PCR Negative (Negative); RSV RNA, RT-PCR Negative (Negative); SARS-CoV-2 RNA PCR Negative (Negative)
--- NOTE | 2023-08-25 23:10 | PC.NURSE ---
Pt informed on POC for admit, call placed to floor, spoke to GREGORY Xavier and pt will go to Rm [id number].
[2023-08-25] MEDS: ALPRAZolam (*CRX) 0.25 MG TABLET PO (23:38)
[2023-08-26] VITALS (11 sets, daily range): BP systolic 94–107; BP diastolic 54–71; PULSE 78–105; RESP 18–22; TEMP 36–36.8; O2SAT 92–100; BMI 20.6
[2023-08-26] MEDS: IPRATROPIUM 0.5 MG/ALBUTEROL SULFATE 2.5 MG AMPUL.NEB 3 ML INHALATION ×3 (00:55→10:13)
[2023-08-26] MEDS: methylPREDNISolone SOD SUCC 125 MG VIAL 80 MG IV PUSH (05:27)
[2023-08-26 05:32] LABS: Basophils Absolute Auto 0.01 K/mm3 (0.00-0.10); Basophils Percent Auto 0.2 % (0.0-1.0); Hematocrit 37.7 % (37.0-46.0); Hemoglobin 11.9 g/dL (12.4-15.3); Immature Granulocyte Absolute 0.02 K/mm3 (0.00-0.00); Immature Granulocyte Percent A 0.3 % (0.0-0.0); Lymphocytes Absolute Auto 0.69 K/mm3 (1.10-4.50); Lymphocytes Percent Auto 10.6 % (18.0-42.0); Mean Corpuscular HGB Conc 31.6 g/dL (32-36); Mean Corpuscular Hemoglobin 30.4 pg (27.0-31.0); Mean Corpuscular Volume 96.4 fL (78.0-102.0); Mean Platelet Volume 9.5 fl (8.7-11.0); Monocytes Absolute Auto 0.04 K/mm3 (0.10-0.90); Monocytes Percent Auto 0.6 % (2.0-11.0); Neutrophils Absolute Auto 5.75 K/mm3 (1.70-7.20); Neutrophils Percent Auto 88.3 % (50.0-70.0); Platelet Count Result 231 K/mm3 (150-420); Red Blood Count 3.91 M/mm3 (4.70-6.10); Red Cell Distribution Width 12.5 % (11.6-14.4); White Blood Count 6.5 K/mm3 (4.8-10.8)
[2023-08-26] MEDS: BUDESONIDE RESPULE NEB 0.5 MG/2 ML AMP INHALATION (05:34)
[2023-08-26 05:43] LABS: Anion Gap 5 mmol/L (4-12); Blood Urea Nitrogen 30 mg/dL (7-18); Calcium 8.6 mg/dL (8.5-10.1); Carbon Dioxide 34 mmol/L (21-32); Chloride 104 mmol/L (98-108); Estimated CRCL calculation 45 ml/min; Estimated Glomerular Filt Rate > 60; Glucose 131 mg/dL (70-99); Osmolality Calculated 304 mOsm/kg (285-295); Potassium 4.1 mmol/L (3.5-5.1); Sodium 143 mmol/L (136-145)
[2023-08-26] MEDS: CYANOCOBALAMIN 1,000 MCG TABLET 1000 MCG PO (08:40)
[2023-08-26] MEDS: SPIRONOLACTONE 12.5 MG TABLET PO (08:40)
[2023-08-26] MEDS: ATORVASTATIN 40 MG TABLET PO (08:40)
[2023-08-26] MEDS: POTASSIUM CHLORIDE 20 MEQ ER TABLET PO (08:40)
[2023-08-26] MEDS: CHOLECALCIFEROL 1,000 UNITS TABLET 1000 UNITS PO (08:41)
[2023-08-26] MEDS: FUROSEMIDE 40 MG TABLET PO (08:41)
[2023-08-26] MEDS: ASPIRIN 81 MG ENTERIC TABLET PO (08:41)
[2023-08-26] MEDS: carvediloL 3.125 MG TABLET PO (08:41)
[2023-08-26] MEDS: SERTRALINE HCL 50 MG TABLET PO (08:42)
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
[2023-08-26] MEDS: CALCIUM CARBONATE (OSCAL) 500 MG TABLET PO (10:09)
--- NOTE | 2023-08-26 11:39 | PC.NURSE ---
1115 friend here to pick patient up. dc instructions went over. vocalizes an understanding. encouraged to call if questions arise.
--- NOTE | 2023-08-27 09:38 | PC.NURSE ---
Discharge call back made, doing well, understood dc instructions, good care, no complaints
== END 2023-08-26 11:15 | disposition home or self-care (01) ==
LOC: CHSED 22:50 → CHS2ND 23:14
PROVIDERS: Family Medicine; Admitting Provider Internal Medicine; Emergency Provider Emergency Medicine; Visit Provider Internal Medicine
DX: J44.1 Chronic obstructive pulmonary disease with (acute) exacerbation (principal); J96.11 Chronic respiratory failure with hypoxia; Z99.81 Dependence on supplemental oxygen; F41.8 Other specified anxiety disorders; I25.10 Atherosclerotic heart disease of native coronary artery without angina pectoris; Z95.5 Presence of coronary angioplasty implant and graft; G47.33 Obstructive sleep apnea (adult) (pediatric); Z95.810 Presence of automatic (implantable) cardiac defibrillator; Z20.822 Contact with and (suspected) exposure to COVID-19; I25.5 Ischemic cardiomyopathy; I25.2 Old myocardial infarction; N40.0 Benign prostatic hyperplasia without lower urinary tract symptoms; F43.10 Post-traumatic stress disorder, unspecified; Z96.642 Presence of left artificial hip joint; Z89.021 Acquired absence of right finger(s); Z89.011 Acquired absence of right thumb; F10.90 Alcohol use, unspecified, uncomplicated; Z86.73 Personal history of transient ischemic attack (TIA), and cerebral infarction without residual deficits; Z87.891 Personal history of nicotine dependence; Z79.51 Long term (current) use of inhaled steroids; Z79.52 Long term (current) use of systemic steroids; Z79.82 Long term (current) use of aspirin; Z79.899 Other long term (current) drug therapy
CPT/HCPCS: 36415; 71045; 80048; 80053; 83735; 83880; 84484; 85025; 85610; 87637; 93005; 94640; 96374; 99285; A9270; G0378; J2919

== ENCOUNTER 2023-08-30 11:28 | Observation (INO) | payer MEDICARE, OTHER, SELFPAY ==
[2023-08-30] VITALS (33 sets, daily range): BP systolic 121–137; BP diastolic 56–96; PULSE 70–106; RESP 12–24; TEMP 36.1–36.8; O2SAT 90–100; BMI 20.3
--- NOTE | ~2023-08-30 | XR_ITS ---
XR chest 1V portable DATE: 08/30/2023 12:01 INDICATION: Dyspnea and shortness of breath for one week TECHNIQUE: Portable AP views on August 30, 2023 at 1205 and 1206 hours COMPARISON: August 25, 2023 portable AP chest FINDINGS: Left AICD/pacemaker device with lead overlying right ventricle. Normal heart size. Coronary artery calcification and/or stent. Aortic calcification. Bilateral hyperinflation suggesting chronic obstructive pulmonary disease. No pulmonary infiltrate or consolidation, pleural effusion or pulmonary vascular congestion or pneumothorax is detected. Diffuse osteopenia. Diffuse idiopathic skeletal hyperostosis of the thoracic spine. Degenerative spurring of the lumbar s pine. IMPRESSION: COPD Left AICD/pacemaker No active pulmonary disease Reviewed, dictated and finalized at location A.
--- NOTE | 2023-08-30 11:32 | ECG_ITS ---
SEE SCANNED COPY FOR CONFIRMED REPORT MTDD
[2023-08-30] MEDS: MAGNESIUM SULF 2 GM/WATER 50ML 2 GM/50 ML BAG IVPB (11:56)
[2023-08-30] MEDS: methylPREDNISolone SOD SUCC 125 MG VIAL IV PUSH (11:57)
[2023-08-30] MEDS: IPRATROPIUM 0.5 MG/ALBUTEROL SULFATE 2.5 MG AMPUL.NEB 3 ML INHALATION ×3 (11:57→22:16)
[2023-08-30 12:02] LABS: Basophils Absolute Auto 0.04 K/mm3 (0.00-0.10); Basophils Percent Auto 0.3 % (0.0-1.0); Eosinophils Absolute Auto 0.26 K/mm3 (0.02-0.50); Eosinophils Percent Auto 1.7 % (1.0-6.0); Hematocrit 41.9 % (37.0-46.0); Hemoglobin 13.1 g/dL (12.4-15.3); Immature Granulocyte Percent A 0.6 % (0.0-0.0); Lymphocytes Absolute Auto 1.78 K/mm3 (1.10-4.50); Lymphocytes Percent Auto 11.5 % (18.0-42.0); Mean Corpuscular HGB Conc 31.3 g/dL (32-36); Mean Corpuscular Hemoglobin 30.5 pg (27.0-31.0); Mean Corpuscular Volume 97.4 fL (78.0-102.0); Mean Platelet Volume 9.4 fl (8.7-11.0); Monocytes Absolute Auto 1.16 K/mm3 (0.10-0.90); Monocytes Percent Auto 7.5 % (2.0-11.0); Neutrophils Absolute Auto 12.16 K/mm3 (1.70-7.20); Neutrophils Percent Auto 78.4 % (50.0-70.0); Platelet Count Result 325 K/mm3 (150-420); Red Cell Distribution Width 12.7 % (11.6-14.4); White Blood Count 15.5 K/mm3 (4.8-10.8)
[2023-08-30 12:06] LABS: HCO3 ABG 29.2 mmol/L (23-29); Oxygen Content ABG 18.9 %vol (16.0-22.0); Oxygen Saturation ABG 97.8 % (95-97); Oxyhemoglobin 95.2 % (94-100); PCO2 ABG 41.4 mmHg (35-45); PO2 ABG 131.3 mmHg (75-85); pH ABG 7.47 (7.35-7.45)
[2023-08-30 12:07] LABS: Device NASAL CANNULA; Site Drawn LEFT BRACHIAL
[2023-08-30 12:16] LABS: Partial Thromboplastin Time 25.1 Sec (23.9-30.70); Prothrombin Time 10.6 Seconds (9.50-12.1)
[2023-08-30 12:17] LABS: Lactic Acid Reflex 1.1 mmol/L (0.4-2.0)
[2023-08-30 12:22] LABS: Alanine Aminotransferase 23 U/L (16-63); Albumin Level 3.8 g/dL (3.4-5.0); Alkaline Phosphatase 82 U/L (46-116); Anion Gap 2 mmol/L (4-12); Aspartate Amino Transferase 15 U/L (15-37); Blood Urea Nitrogen 26 mg/dL (7-18); Calcium 9.7 mg/dL (8.5-10.1); Carbon Dioxide 40 mmol/L (21-32); Chloride 100 mmol/L (98-108); Estimated CRCL calculation 45 ml/min; Estimated Glomerular Filt Rate > 60; Glucose 102 mg/dL (70-99); Magnesium 2.1 mg/dL (1.8-2.4); NT Pro B Type Natriuretic Pept 1013 pg/mL (0-450); Osmolality Calculated 298 mOsm/kg (285-295); Potassium 4.3 mmol/L (3.5-5.1); Sodium 142 mmol/L (136-145); Total Protein 7.2 g/dL (6.4-8.2); Troponin I 14.9 ng/L (0.00-60.4)
[2023-08-30 12:45] LABS: Influenza A QL RT-PCR Negative (Negative); Influenza B QL RT-PCR Negative (Negative); RSV RNA, RT-PCR Negative (Negative); SARS-CoV-2 RNA PCR Negative (Negative)
--- NOTE | 2023-08-30 12:48 | ED.SOB ---
HPI - SOB/Dyspnea General Chief Complaint: Shortness of Breath/Dyspnea Stated Complaint: SOB Time Seen by Provider: 08/30/23 11:32 Source: patient and family Mode of arrival: wheelchair Limitations: physical limitation History of Present Illness HPI Narrative: This is an 83-year-old male with history of COPD and congestive heart failure has a pacer in place presents with 1 week history of shortness of breath that has gotten progressively worse over last 24hours denies chest pain there is no fever chills no nausea vomiting abdominal pain no flank pain no dysuria or hematuria. Patient is currently 3L of oxygen at home has no cough MD elicited complaint: shortness of breath Pertinent past history: COPD and congestive heart failure Onset (ago): week(s) Context: recent illness Severity: moderate Exacerbating factors: lying flat Relieving factors: oxygen, bronchodilators and upright position Known history of: COPD and congestive heart failure Associated symptoms: denies other symptoms Related Data Home Medications Medication Instructions Recorded Confirmed atorvastatin 40 mg tablet 40 mg PO DAILY 02/25/20 08/25/23 coenzyme Q10 30 mg capsule (Co 200 mg PO QPM 02/25/20 08/25/23 Q-10) cyanocobalamin (vitamin B-12) 1,000 mcg PO DAILY 02/25/20 08/25/23 1,000 mcg capsule alprazolam 0.25 mg tablet (Xanax) 0.25 mg PO HS 10/16/20 08/25/23 budesonide 0.25 mg/2 mL suspension 0.5 mg inhalation BID 10/16/20 08/25/23 for nebulization (Pulmicort) calcium carbonate 600 mg PO DAILY 10/16/20 08/25/23 carvedilol 3.125 mg tablet 3.125 mg PO BID 10/16/20 08/25/23 formoterol fumarate 20 mcg/2 mL 20 mcg inhalation BID 10/16/20 08/25/23 solution for nebulization (Perforomist) furosemide 40 mg tablet 40 mg PO DAILY 10/16/20 08/25/23 ipratropium 0.5 mg-albuterol 3 mg 3 ml inhalation QID 10/16/20 08/25/23 (2.5 mg base)/3 mL nebulization soln ipratropium 20 mcg-albuterol 100 1 puff inhalation QID 10/16/20 08/25/23 mcg/actuation mist for inhalation (Combivent Respimat) nitroglycerin 0.4 mg sublingual 0.4 mg sublingual PRN PRN Chest 10/16/20 08/25/23 tablet (Nitrostat) Pain potassium chloride 20 mEq 20 meq PO DAILY 10/16/20 08/25/23 tablet,extended release(part/cryst) spironolactone 25 mg tablet 12.5 mg PO DAILY 10/16/20 08/25/23 triamcinolone acetonide 0.1 % 1 applic topical BID 10/16/20 08/25/23 topical cream ammonium lactate 12 % topical cream 1 applic topical BID 08/25/23 08/25/23 cholecalciferol (vitamin D3) 25 25 mcg PO DAILY 08/25/23 08/25/23 mcg (1,000 unit) tablet (Vitamin D3) loratadine 10 mg tablet (Claritin) 10 mg PO DAILY PRN Allergy Symptoms 08/25/23 08/25/23 sertraline 50 mg tablet 50 mg PO DAILY 08/25/23 08/25/23 Allergies Allergy/AdvReac Type Severity Reaction Status Date / Time tramadol Allergy Intermediate Hives Verified 08/08/22 02:02 amoxicillin Allergy Mild Rash Verified 08/08/22 02:02 doxycycline Allergy Mild Rash Verified 08/08/22 02:02 latex Allergy Mild Rash Verified 08/08/22 02:02 Review of Systems Review of Systems: All systems reviewed & are unremarkable except as noted in HPI and below PMFSH Past Medical History Medical History Arthritis Benign prostatic hyperplasia Chronic obstructive pulmonary disease Chronic respiratory failure with hypoxia, on home oxygen therapy Depression with anxiety GI bleed X3 since 2016. He has had multiple upper and lower endoscopies and no source of bleeding has ever been found. Ischemic cardiomyopathy Echocardiogram in March 2020 showed a severely enlarged left ventricular chamber with severely reduced systolic function and estimated EF of 30 to 35%. Mid to apical septum is thin and akinetic. Mid to apical anterior wall and apex are akinetic. Myocardial infarction Status post stent x1. Posttraumatic stress disorder Transient ischemic attack Traumatic amputation of multiple fingers The j luis
[2023-08-30 13:19] LABS: Appearance Urine Clear (Clear); Bilirubin Urine Negative (Negative); Blood Urine Negative (Negative); Color Urine Light Yellow (Yellow); Glucose Urine UA Negative (Negative); Ketones Urine Negative (Negative); Leukocyte Esterase Ur Negative LEU/UL (Negative); Nitrate Urine Negative (Negative); Protein Urine Negative (Negative); Urobilinogen Urine 0.2 mg/dL (0.2-1.0)
[2023-08-30 13:22] LABS: Add Urine Microscopic? NO
[2023-08-30] MEDS: levoFLOXacin 500 MG/D5W 100 ML 500 MG/100 ML BAG 100 MG IVPB (15:11)
[2023-08-30 15:27] LABS: Troponin I 14.3 ng/L (0.00-60.4)
--- NOTE | 2023-08-30 16:00 | PC.NURSE ---
Patient admitted to room 208 from ED. Patient arrived to unit in w/c and was able to transfer self from w/c to bed without assist. Patient educated on use of call light, bed controls, rapid response, fall risks and prevention, visiting hours, and general hospital policies. Patient in possession of money in the amount of 446 dollars. Two nurses counted lang, patient and nurses signed belongings papers and charge nurse took lang to be locked in safe. nursing home physician employees unable to find rouse to safe, so money was returned to patient's possession, recounted and sent home with patient's friend. Patient has medication from home labeled with his name in med room. Patient expresses concern with being able to bathe at home alone and would benefit from social secretary assistance with home health.
--- NOTE | 2023-08-30 18:52 | PHAR ---
THIS PATIENT BROUGHT FROM HOME A NON FORMULARY MED ITEM. RN FROM [place] IDENTIFIED [facility] [place] [id number]. PHARMACY IDENTIFIED THROUGH [employer] BASED ON THE FOLLOWING Active Ingredients Formoterol Fumarate - 20 MCG/2 ML Company [employer] [facility] Container Size 2 ML Vial, package of 30 Physical Description Form Inhalation Solution Color Clear, Colorless Manufacture Product Codes [facility] [id number] Registry [id number] ([facility]) [id number] ([facility]) [id number] ([facility])
[2023-08-30] MEDS: BUDESONIDE RESPULE NEB 0.25 MG/2 ML AMP INHALATION (19:04)
--- NOTE | 2023-08-30 19:35 | PCRCNOTE ---
Patient's Home med at bedside, not given at this time. Patient request RT to give before bedtime. TX will be given at 2230. RN notified
[2023-08-30] MEDS: TAMSULOSIN HCL 0.4 MG CAPSULE 0.8 MG PO (20:58)
[2023-08-30] MEDS: PANTOPRAZOLE 40 MG TABLET PO (20:59)
[2023-08-30] MEDS: ALPRAZolam (*CRX) 0.25 MG TABLET PO (20:59)
[2023-08-30] MEDS: carvediloL 3.125 MG TABLET PO (20:59)
[2023-08-31] VITALS (24 sets, daily range): BP systolic 117–133; BP diastolic 59–94; PULSE 64–90; RESP 16–26; TEMP 36.1–36.4; O2SAT 97–100
[2023-08-31 05:43] LABS: Basophils Absolute Auto 0.02 K/mm3 (0.00-0.10); Basophils Percent Auto 0.2 % (0.0-1.0); Eosinophils Absolute Auto 0.04 K/mm3 (0.02-0.50); Eosinophils Percent Auto 0.4 % (1.0-6.0); Hemoglobin 12.2 g/dL (12.4-15.3); Immature Granulocyte Absolute 0.14 K/mm3 (0.00-0.00); Immature Granulocyte Percent A 1.3 % (0.0-0.0); Lymphocytes Absolute Auto 1.56 K/mm3 (1.10-4.50); Lymphocytes Percent Auto 14.6 % (18.0-42.0); Mean Corpuscular HGB Conc 32.1 g/dL (32-36); Mean Corpuscular Hemoglobin 30.3 pg (27.0-31.0); Mean Corpuscular Volume 94.5 fL (78.0-102.0); Mean Platelet Volume 9.5 fl (8.7-11.0); Monocytes Absolute Auto 0.74 K/mm3 (0.10-0.90); Monocytes Percent Auto 6.9 % (2.0-11.0); Neutrophils Absolute Auto 8.18 K/mm3 (1.70-7.20); Neutrophils Percent Auto 76.6 % (50.0-70.0); Platelet Count Result 307 K/mm3 (150-420); Red Blood Count 4.02 M/mm3 (4.70-6.10); Red Cell Distribution Width 12.5 % (11.6-14.4); White Blood Count 10.7 K/mm3 (4.8-10.8)
[2023-08-31] MEDS: IPRATROPIUM 0.5 MG/ALBUTEROL SULFATE 2.5 MG AMPUL.NEB 3 ML INHALATION ×5 (05:53→22:36)
[2023-08-31] MEDS: BUDESONIDE RESPULE NEB 0.25 MG/2 ML AMP INHALATION ×3 (05:54→18:36)
[2023-08-31 06:07] LABS: Alanine Aminotransferase 17 U/L (16-63); Alkaline Phosphatase 65 U/L (46-116); Anion Gap 2 mmol/L (4-12); Aspartate Amino Transferase 12 U/L (15-37); Bilirubin,Total 0.9 mg/dL (0.00-1.00); Blood Urea Nitrogen 24 mg/dL (7-18); Calcium 9.2 mg/dL (8.5-10.1); Carbon Dioxide 38 mmol/L (21-32); Chloride 101 mmol/L (98-108); Estimated CRCL calculation 45 ml/min; Estimated Glomerular Filt Rate > 60; Glucose 102 mg/dL (70-99); Magnesium 1.8 mg/dL (1.8-2.4); Osmolality Calculated 296 mOsm/kg (285-295); Sodium 141 mmol/L (136-145); Total Protein 6.4 g/dL (6.4-8.2)
--- NOTE | 2023-08-31 06:31 | PCRCNOTE ---
Started schedule TX's for Patient with no complications. Patient then started his Home Medication(Perforomist) .increased HR , RR and WOB noted TX stopped and discarted. RN notified
[2023-08-31] MEDS: ENOXAPARIN 40 MG/0.4 ML SYRINGE SUB-Q (09:00)
[2023-08-31] MEDS: methylPREDNISolone SOD SUCC 125 MG VIAL 80 MG IV PUSH (09:03)
[2023-08-31] MEDS: CHOLECALCIFEROL 1,000 UNITS TABLET 1000 UNITS PO (09:07)
[2023-08-31] MEDS: ASPIRIN 81 MG ENTERIC TABLET PO (09:07)
[2023-08-31] MEDS: CYANOCOBALAMIN 1,000 MCG TABLET 1000 MCG PO (09:08)
[2023-08-31] MEDS: SPIRONOLACTONE 12.5 MG TABLET PO (09:08)
[2023-08-31] MEDS: ATORVASTATIN 40 MG TABLET PO (09:08)
[2023-08-31] MEDS: FUROSEMIDE 40 MG TABLET PO (09:08)
[2023-08-31] MEDS: SERTRALINE HCL 50 MG TABLET PO (09:09)
[2023-08-31] MEDS: POTASSIUM CHLORIDE 20 MEQ ER TABLET PO (09:09)
[2023-08-31] MEDS: carvediloL 3.125 MG TABLET PO ×2 (09:09→20:56)
--- NOTE | 2023-08-31 10:14 | PC.NURSE ---
Enamel Cracker assisted patient with complete shower and oral care.
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
[2023-08-31] MEDS: levoFLOXacin 250 MG/D5W 50 ML 250 MG/50 ML BAG 50 MG IVPB (11:45)
--- NOTE | 2023-08-31 13:14 | PC.NURSE ---
IV infiltrated during IV ABT therapy, causing a 2.5 cm round bubble under the skin. Refrigeration Insulator removed IV catheter and provided a compress to aid in patient comfort. IV therapy completed at the time of infiltrate, so patient received full dose of medication. Patient denies pain at site.
--- NOTE | 2023-08-31 18:46 | PCRCNOTE ---
Patient's Home med at bedside, not given at this time. Patient request RT to give before bedtime. TX will be given at 2230. Patient states he does not use a BiPaP at home and does not want one at this time. No distress noted
[2023-08-31] MEDS: TAMSULOSIN HCL 0.4 MG CAPSULE 0.8 MG PO (20:56)
[2023-08-31] MEDS: PANTOPRAZOLE 40 MG TABLET PO (20:56)
[2023-08-31] MEDS: ALPRAZolam (*CRX) 0.25 MG TABLET PO (20:56)
[2023-08-31] MEDS: SALINE 0.65% NAS SOLN 44 ML BTL 1 SPRAY NASAL (21:26)
[2023-09-01] VITALS (19 sets, daily range): BP systolic 105–124; BP diastolic 58–67; PULSE 68–92; RESP 14–22; TEMP 36–36.4; O2SAT 96–100
[2023-09-01 05:29] LABS: Basophils Absolute Auto 0.02 K/mm3 (0.00-0.10); Basophils Percent Auto 0.2 % (0.0-1.0); Eosinophils Absolute Auto 0.21 K/mm3 (0.02-0.50); Eosinophils Percent Auto 1.8 % (1.0-6.0); Hemoglobin 12.2 g/dL (12.4-15.3); Immature Granulocyte Percent A 1.7 % (0.0-0.0); Lymphocytes Absolute Auto 2.48 K/mm3 (1.10-4.50); Lymphocytes Percent Auto 21.3 % (18.0-42.0); Mean Corpuscular HGB Conc 32.1 g/dL (32-36); Mean Corpuscular Volume 96.4 fL (78.0-102.0); Mean Platelet Volume 9.6 fl (8.7-11.0); Monocytes Absolute Auto 0.81 K/mm3 (0.10-0.90); Neutrophils Absolute Auto 7.91 K/mm3 (1.70-7.20); Platelet Count Result 298 K/mm3 (150-420); Red Blood Count 3.94 M/mm3 (4.70-6.10); Red Cell Distribution Width 12.7 % (11.6-14.4); White Blood Count 11.6 K/mm3 (4.8-10.8)
[2023-09-01 05:43] LABS: Alanine Aminotransferase 17 U/L (16-63); Albumin Level 3.3 g/dL (3.4-5.0); Alkaline Phosphatase 88 U/L (46-116); Anion Gap 5 mmol/L (4-12); Aspartate Amino Transferase 12 U/L (15-37); Bilirubin,Total 0.6 mg/dL (0.00-1.00); Blood Urea Nitrogen 24 mg/dL (7-18); Calcium 8.4 mg/dL (8.5-10.1); Carbon Dioxide 36 mmol/L (21-32); Chloride 102 mmol/L (98-108); Estimated CRCL calculation 43 ml/min; Estimated Glomerular Filt Rate > 60; Glucose 98 mg/dL (70-99); Magnesium 1.9 mg/dL (1.8-2.4); Osmolality Calculated 300 mOsm/kg (285-295); Potassium 3.7 mmol/L (3.5-5.1); Sodium 143 mmol/L (136-145); Total Protein 6.2 g/dL (6.4-8.2)
[2023-09-01] MEDS: IPRATROPIUM 0.5 MG/ALBUTEROL SULFATE 2.5 MG AMPUL.NEB 3 ML INHALATION ×4 (05:44→18:17)
[2023-09-01] MEDS: BUDESONIDE RESPULE NEB 0.25 MG/2 ML AMP INHALATION ×2 (05:45→20:28)
--- NOTE | 2023-09-01 06:33 | PCRCNOTE ---
patient complained of SOB after Home medication. HR-89 RR24 SpO2 100. RT at bedside until patient felt better. RR-20
--- NOTE | 2023-09-01 07:00 | ECHO_ITS ---
Patient Info Name: Chip Emery Age: 83 years : 1940 Gender: Male Ht: 71 in Wt: 145 lbs BSA: 1.81 m2 HR: 65 bpm Heart Rhythm: Sinus Rhythm Technical Quality: Good Exam Date: 09/01/2023 11:41 AM Exam Location: Echo Lab Patient Status: Inpatient Admit Date: 08/30/2023 Staff Ordering Physician: Marvin Swenson APRN Vegetable Thinner: Domi Cuenca RDCS Attending Provider: Nuno Matos MD Referring Physician: Messi SCHNEIDER; Exam Type: CA echo doppler color flow Study Info Indications - chf, dyspnea Complete two-dimensional, color flow and Doppler transthoracic echocardiogram is performed. History/Risk Factors Hypertension: No Dyslipidemia: No Congenital Heart Disease (CHD): No Myocardial Infarction (ME): No Chronic Lung Disease: No Obesity: No Renal Disease: No Congestive Heart Failure (CHF): No Cardiomyopathy/LV Systolic Dysfunction: Yes Diabetes Mellitus: No COPD: On Meds Tobacco Use: Former Cerebrovascular Disease: No Deep Vein Thrombosis (DVT): None Dialysis: None Frailty Scale (CSHA): 4: Vulnerable Cardiac Arrest: No Prior Interventions Pacemaker: Yes Summary 1. Complete two-dimensional, color flow and Doppler transthoracic echocardiogram is performed. 2. Left ventricular chamber dimension is moderately enlarged. 3. There is mild concentric increased left ventricular wall thickness. 4. Left ventricular systolic function is severely globally reduced, estimated at 20-25%. 5. The left ventricular diastolic function is grade I diastolic dysfunction. 6. Linear artifact in right ventricle suggestive of catheter(s), pacemaker lead(s), or ICD lead(s). 7. Linear artifact in the right atrium suggestive of catheter(s), pacemaker lead(s), or ICD lead(s). 8. There is mild aortic valve sclerosis. 9. There is mild aortic valve regurgitation. 10. There is mild mitral valve regurgitation. 11. There is mild tricuspid valve regurgitation. 12. No pulmonary hypertension, estimated pulmonary arterial systolic pressure is 31 mmHg. Left Ventricle Left ventricular systolic function is severely globally reduced, estimated at 20-25%. Tissue doppler E/e' is not performed. Left ventricular chamber dimension is moderately enlarged. There is mild concentric increased left ventricular wall thickness. The left ventricular diastolic function is grade I diastolic dysfunction. Right Ventricle Right ventricular systolic function is normal and with normal TAPSE 2.8 cm. Linear artifact in right ventricle suggestive of catheter(s), pacemaker lead(s), or ICD lead(s). Right ventricular chamber dimension is normal. Left Atria Left atrial chamber dimension is normal. Right Atria Linear artifact in the right atrium suggestive of catheter(s), pacemaker lead(s), or ICD lead(s). Right atrial chamber dimension is normal. Aortic Valve The aortic valve is trileaflet. There is mild aortic valve sclerosis. There is no aortic valve stenosis. There is mild aortic valve regurgitation. Pulmonic Valve There is no pulmonic regurgitation. Mitral Valve There is no mitral valve stenosis. There is mild mitral valve regurgitation. Tricuspid Valve There is mild tricuspid valve regurgitation. No pulmonary hypertension, estimated pulmonary arterial systolic pressure is 31 mmHg. Pericardium/Pleural There is no pericardial effusion. Inferior Vena Cava Normal inferior vena cava with >50% collapse upon inspiration consistent with normal right atrial pressure, 5 mmHg. Aorta The aortic ro
[2023-09-01] MEDS: busPIRone HCL 5 MG TABLET 10 MG PO ×2 (09:00→20:40)
[2023-09-01] MEDS: ENOXAPARIN 40 MG/0.4 ML SYRINGE SUB-Q (09:05)
[2023-09-01] MEDS: CHOLECALCIFEROL 1,000 UNITS TABLET 1000 UNITS PO (09:06)
[2023-09-01] MEDS: SERTRALINE HCL 50 MG TABLET PO (09:06)
[2023-09-01] MEDS: predniSONE 20 MG TABLET 40 MG PO (09:06)
[2023-09-01] MEDS: POTASSIUM CHLORIDE 20 MEQ ER TABLET PO (09:06)
[2023-09-01] MEDS: levoFLOXacin 250 MG TABLET PO (09:07)
[2023-09-01] MEDS: ASPIRIN 81 MG ENTERIC TABLET PO (09:07)
[2023-09-01] MEDS: CYANOCOBALAMIN 1,000 MCG TABLET 1000 MCG PO (09:07)
[2023-09-01] MEDS: SPIRONOLACTONE 12.5 MG TABLET PO (09:07)
[2023-09-01] MEDS: ATORVASTATIN 40 MG TABLET PO (09:07)
[2023-09-01] MEDS: FUROSEMIDE 40 MG TABLET PO ×2 (09:07→16:30)
[2023-09-01] MEDS: carvediloL 3.125 MG TABLET PO ×2 (09:07→20:41)
--- NOTE | 2023-09-01 09:55 | PM.DS ---
DS: Summary Time Spent with Patient Time attestation: Total time spent providing and/or coordinating discharge services: DS: Data Data Completed and Pending Labs on day of discharge: Labs from last 24 hours 09/01/23 05:25 WBC 11.6 H RBC 3.94 L Hgb 12.2 L Hct 38.0 MCV 96.4 MCH 31.0 MCHC 32.1 RDW 12.7 Plt Count 298 MPV 9.6 Immature Gran % (Auto) 1.7 H Neut % (Auto) 68.0 Lymph % (Auto) 21.3 Aiken % (Auto) 7.0 Eos % (Auto) 1.8 Baso % (Auto) 0.2 Lymph # (Auto) 2.48 Aiken # (Auto) 0.81 Eos # (Auto) 0.21 Baso # (Auto) 0.02 Abs Immat Gran (auto) 0.20 H Absolute Neuts (auto) 7.91 H Absolute Nucleated RBC 0.00 Nucleated RBC % 0.0 Sodium 143 Potassium 3.7 Chloride 102 Carbon Dioxide 36 H Anion Gap 5 BUN 24 H Creatinine 1.11 Estim Creat Clear Calc 43 Estimated GFR > 60 Glucose 98 Calculated Osmolality 300 H Calcium 8.4 L Magnesium 1.9 Total Bilirubin 0.6 AST 12 L ALT 17 Alkaline Phosphatase 88 Total Protein 6.2 L Albumin 3.3 L Preliminary micro results at discharge 08/30/23 12:00 Blood Culture - Preliminary Blood 08/30/23 11:45 Blood Culture - Preliminary Blood Discharge Plan Discharge Discharge Medications: No Action aspirin [Adult Low Dose Aspirin] 81 mg Tablet,Delayed Release (Dr/Ec) 81 mg PO DAILY Qty: 30 0RF Hold Instructions: Resume when okay with your doctor tamsulosin 0.4 mg Capsule 0.8 mg PO HS Qty: 30 0RF pantoprazole 40 mg Tablet,Delayed Release (Dr/Ec) 40 mg PO HS Qty: 30 0RF atorvastatin 40 mg tablet 40 mg PO DAILY cyanocobalamin (vitamin B-12) 1,000 mcg Capsule 1,000 mcg PO DAILY coenzyme Q10 [Co Q-10] 30 mg capsule 200 mg PO QPM sertraline 50 mg tablet 50 mg PO DAILY ammonium lactate 12 % Cream 1 applic TOPICAL BID loratadine [Claritin] 10 mg Tablet 10 mg PO DAILY PRN (Reason: Allergy Symptoms) cholecalciferol (vitamin D3) [Vitamin D3] 25 mcg (1,000 unit) Tablet 25 mcg PO DAILY methylprednisolone [Medrol (Kenneth)] 4 mg tablets,dose pack See Rx Instructions .ROUTE .COMPLEX Qty: 21 0RF Rx Instructions: orally per package directions budesonide [Pulmicort] 0.25 mg/2 mL suspension for nebulization 0.25 mg inhalation TID formoterol fumarate 20 mcg/2 mL solution for nebulization 20 mcg INHALATION BID furosemide 40 mg tablet 40 mg PO DAILY triamcinolone acetonide 0.1 % Cream 1 applic TOPICAL BID Rx Instructions: apply to groin, cheeks, stomach rash spironolactone 25 mg tablet 12.5 mg PO DAILY carvedilol 3.125 mg tablet 3.125 mg PO BID calcium carbonate 600 mg calcium (1,500 mg) Tablet 600 mg PO DAILY potassium chloride 20 mEq tablet,ER particles/crystals 20 meq PO DAILY Combivent Respimat 20-100 mcg/actuation mist 1 puff INHALATION QID ipratropium-albuterol 0.5 mg-3 mg(2.5 mg base)/3 mL solution for nebulization 3 ml INHALATION QID alprazolam [Xanax] 0.25 mg tablet 0.25 mg PO HS nitroglycerin [Nitrostat] 0.4 mg tablet, sublingual 0.4 mg SUBLINGUAL PRN PRN (Reason: Chest Pain) Date of admission: 08/30/23 15:35 Primary Care Provider: UNKNOWN,DOCTOR Admitting Provider: Nuno Matos Attending physician on admission: Nuno Matos Condition: Guarded Prognosis
--- NOTE | 2023-09-01 16:01 | PM.IMPN ---
Progress Note: A&P Assessment and Plan (1) Acute exacerbation of chronic obstructive pulmonary disease: Code(s): J44.1 - Chronic obstructive pulmonary disease with (acute) exacerbation Status: Acute Assessment and Plan: -Recurrent visits for dyspnea with wheezing -Recent overnight observation for the same -Feeling better this morning but did have an episode of acute dyspnea that improved with breathing treatment 08/31: planned to discharge but patient still having panic attacks (2) Chronic respiratory failure with hypoxia, on home oxygen therapy: Code(s): J96.11 - Chronic respiratory failure with hypoxia; Z99.81 - Dependence on supplemental oxygen Status: Chronic Assessment and Plan: -Patient having recurrent dyspnea attributed to COPD exacerbation and anxiety response -Despite elevated oxygen levels, patient unwilling to titrate oxygen down/off -Home setting 3 liters/minute -pCO2 normal on ER ABG (3) CHRISTINE and COPD overlap syndrome: Code(s): G47.33 - Obstructive sleep apnea (adult) (pediatric); J44.9 - Chronic obstructive pulmonary disease, unspecified Status: Chronic Assessment and Plan: -offer Autopap at night 08/31: Patient refuses use of autopap (4) Ischemic cardiomyopathy: Code(s): I25.5 - Ischemic cardiomyopathy Status: Chronic Assessment and Plan: -Obtain Echocardiogram, previous EF 30-35% -Does not appear fluid overloaded at this time -Continue home furosemide dose -Pacemaker in place 08/31: EF 20-25% on updated echo. Ordered additional furosemide Plan Planned to discharge today but patient fully asleep after panic attack this afternoon. Increase furosemide Started buspar for anxiety Spoke to PCP office regarding buspar Will again plan discharge tomorrow with Cardiology follow up. Time Spent With Patient Time with patient: Greater than 35 minutes Subjective Date/time seen: 09/01/23 16:01 Interval history: Was planning to discharge patient after echocardiogram results but patient had another attack of anxiety. Before additional oral medication could be given patient fell sound asleep. Echo shows worsened LV systolic function now 20-25%, likely been a slow decline over time. We will give additional Lasix. For now we will plan on discussion and discharge tomorrow. Prior to this, had discussed with PCP office and started buspar 10 mg BID for anxiety. Review of Systems Review of Systems: All systems reviewed & are unremarkable except as noted in HPI and below Exam Narrative: GENERAL: awake alert oriented no acute distress. supplemental oxygenation in place by nasal cannula HEAD: Normocephalic, atraumatic. ENT:? Mucous membranes moist. CHEST: generally clear to auscultation, minor scattered wheeze that clears with cough HEART: Regular rate and rhythm. ? Normal peripheral pulses. ABDOMEN: Soft, nontender, nondistended. EXTREMITIES: Normal range of motion. No peripheral edema. SKIN: Warm dry normal color NEURO: Alert and oriented x3. PSYCH: Normal mood and affect, prone to anxiety attacks Objective Data Vital Signs Vital Signs: Vital Signs - 24 hr 08/31/23 18:26 08/31/23 18:32 08/31/23 18:34 Temperature Pulse Rate 67 72 72 Respiratory Rate 20 20 20 Blood Pressure Pulse Oximetry 100 100 100 Oxygen Delivery Oxygen Flow Rate 3 3 08/31/23 18:41 08/31/23 20:56 08/31/23 20:00 Temperature Pulse Rate 76 84 84 Respiratory Rate 20 20 Blood Pressure Pulse Oximetry 100 100 Oxygen Delivery Nasal Cannula Oxygen Flow Rate 3 2 08/31/23 22:32 08/31/23 22:38 08/31/23 22:39 Temperature Pulse Rate 82 86 84 Respiratory Rate 20 20 20 Blood Pressure Pulse Oximetry 98 100 100 Oxygen Delivery Oxygen Flow Rate 3 3 3 08/31/23 22:48 09/01/23 00:00 09/01/23 05:40 Temperature 36.4 C Pulse Rate 83 84 68 Respiratory Rate 20 18 18 Blood Pressure 124/64 Pulse Oximetry 100 100 98
[2023-09-01] MEDS: hydrOXYzine HCL 12.5 MG TABLET PO (16:34)
--- NOTE | 2023-09-01 18:28 | PC.NURSE ---
Patient sat on side of bed for supper. Ate 75%. Neb treatment started. Lungs diminished but clear. SPO2 98% with O2 at 2LPM/NC. Cooperative with care. Nurse instructed patient on normal ranges of SPO2 for a patient with COPD. Patient has own pulse ox and sits with it on and watching it multiple times a day.
--- NOTE | 2023-09-01 19:04 | PC.NURSE ---
Patient refused Formoterol Fumanate nebulizer treatment at scheduled time. Patient states he takes neb treatment after his HS neb treatment.
[2023-09-01] MEDS: ALPRAZolam (*CRX) 0.25 MG TABLET PO (20:41)
[2023-09-01] MEDS: PANTOPRAZOLE 40 MG TABLET PO (20:41)
[2023-09-01] MEDS: TAMSULOSIN HCL 0.4 MG CAPSULE 0.8 MG PO (20:42)
[2023-09-02] VITALS (9 sets, daily range): BP systolic 104–135; BP diastolic 53–64; PULSE 68–93; RESP 14–22; TEMP 36.1–36.2; O2SAT 96–100
[2023-09-02 05:18] LABS: Basophils Absolute Auto 0.04 K/mm3 (0.00-0.10); Basophils Percent Auto 0.3 % (0.0-1.0); Eosinophils Absolute Auto 0.18 K/mm3 (0.02-0.50); Eosinophils Percent Auto 1.5 % (1.0-6.0); Hematocrit 38.5 % (37.0-46.0); Hemoglobin 12.4 g/dL (12.4-15.3); Immature Granulocyte Absolute 0.25 K/mm3 (0.00-0.00); Immature Granulocyte Percent A 2.1 % (0.0-0.0); Lymphocytes Absolute Auto 2.42 K/mm3 (1.10-4.50); Lymphocytes Percent Auto 20.2 % (18.0-42.0); Mean Corpuscular HGB Conc 32.2 g/dL (32-36); Mean Corpuscular Hemoglobin 30.7 pg (27.0-31.0); Mean Corpuscular Volume 95.3 fL (78.0-102.0); Monocytes Absolute Auto 0.85 K/mm3 (0.10-0.90); Monocytes Percent Auto 7.1 % (2.0-11.0); Neutrophils Absolute Auto 8.23 K/mm3 (1.70-7.20); Neutrophils Percent Auto 68.8 % (50.0-70.0); Platelet Count Result 291 K/mm3 (150-420); Red Blood Count 4.04 M/mm3 (4.70-6.10); Red Cell Distribution Width 12.9 % (11.6-14.4)
[2023-09-02] MEDS: BUDESONIDE RESPULE NEB 0.25 MG/2 ML AMP INHALATION (05:34)
[2023-09-02] MEDS: IPRATROPIUM 0.5 MG/ALBUTEROL SULFATE 2.5 MG AMPUL.NEB 3 ML INHALATION ×2 (05:34→10:51)
[2023-09-02 05:40] LABS: Alanine Aminotransferase 17 U/L (16-63); Albumin Level 3.3 g/dL (3.4-5.0); Alkaline Phosphatase 72 U/L (46-116); Anion Gap -5 mmol/L (4-12); Aspartate Amino Transferase 12 U/L (15-37); Bilirubin,Total 0.7 mg/dL (0.00-1.00); Blood Urea Nitrogen 29 mg/dL (7-18); Calcium 9.4 mg/dL (8.5-10.1); Carbon Dioxide 41 mmol/L (21-32); Chloride 98 mmol/L (98-108); Estimated CRCL calculation 42 ml/min; Estimated Glomerular Filt Rate > 60; Glucose 100 mg/dL (70-99); Magnesium 1.9 mg/dL (1.8-2.4); Osmolality Calculated 283 mOsm/kg (285-295); Potassium 3.3 mmol/L (3.5-5.1); Sodium 134 mmol/L (136-145); Total Protein 6.2 g/dL (6.4-8.2)
--- NOTE | 2023-09-02 06:03 | PCRCNOTE ---
0550 Prior to starting pt's trio of morning nebs the pt was asked twice if he also wanted his performist. Pt stated yes , I asked again reminding him that he c/o almost every time that it makes him anxious. He said yes and got it out of his box on his table. After giving him his 2nd neb I was getting ready to give the performist and the pt began to get belligerent with RT and stating it is all our fault that he is having panic attacks because we are giving him the performist. Asked that the patient please calm down and lower is voice so he doesn't get too upset and told him that I was not giving him the performist. Unable to get patient to calm down, still angry for unknown reason as RT left room. RN aware.
[2023-09-02] MEDS: predniSONE 20 MG TABLET 40 MG PO (08:22)
[2023-09-02] MEDS: POTASSIUM CHLORIDE 20 MEQ ER TABLET 40 MEQ PO (08:23)
--- NOTE | 2023-09-02 09:01 | PM.DS ---
DS: Admitting Diagnosis Discharge Date 09/02/2023 Admitting Diagnosis Acute exacerbation of chronic obstructive pulmonary disease, Chronic respiratory failure with hypoxia, on home oxygen therapy, CHRISTINE and COPD overlap syndrome, Ischemic cardiomyopathy DS: Discharge Diagnosis Discharge Diagnosis (1) Acute exacerbation of chronic obstructive pulmonary disease: Code(s): J44.1 - Chronic obstructive pulmonary disease with (acute) exacerbation Status: Acute (2) Chronic respiratory failure with hypoxia, on home oxygen therapy: Code(s): J96.11 - Chronic respiratory failure with hypoxia; Z99.81 - Dependence on supplemental oxygen Status: Chronic (3) CHRISTINE and COPD overlap syndrome: Code(s): G47.33 - Obstructive sleep apnea (adult) (pediatric); J44.9 - Chronic obstructive pulmonary disease, unspecified Status: Chronic (4) Ischemic cardiomyopathy: Code(s): I25.5 - Ischemic cardiomyopathy Status: Chronic (5) Anxiety about health: Code(s): R45.89 - Other symptoms and signs involving emotional state Status: Acute DS: Summary Hospital Course Hospital Course: This is an 83 year old male patient with COPD on home oxygen and ischemic cardiomyopathy with low EF and Pacemaker who was admitted for dyspnea presumed to be COPD exacerbation however his symptoms seem to be paroxysms of dyspnea that are potentially related to anxiety more than acute worsening of chronic illnesses. Repeat Echo shows what is likely gradual worsening of cardiomyopathy now with 20-25% EF. Increased furosemide and spironolactone and added Buspar for baseline anxiety improvement. Patient has follow up with PCP, Dr. Fernandes in [place] and he was instructed to call his Nutrition Consultant for follow up as well. During hospitalization patient became very angry regarding timing of his nebulizer treatments to the point of yelling at staff. He remains on his baseline oxygen of 3 liters/minute. Status at Discharge Cognitive/behavioral status at discharge: awake, alert, oriented, anxious about health Functional status at discharge: independent ambulation Overall status at discharge: patient is progressing back to baseline Time Spent with Patient Time attestation: Total time spent providing and/or coordinating discharge services: 40 minutes Time spent: Greater than 30 minutes Exam Narrative: GENERAL: awake alert oriented no acute distress. supplemental oxygenation in place by nasal cannula HEAD: Normocephalic, atraumatic. ENT:? Mucous membranes moist. CHEST: generally clear to auscultation, minor scattered wheeze that clears with cough HEART: Regular rate and rhythm. ? Normal peripheral pulses. ABDOMEN: Soft, nontender, nondistended. EXTREMITIES: Normal range of motion. No peripheral edema. SKIN: Warm dry normal color NEURO: Alert and oriented x3. PSYCH: Normal mood and affect, prone to anxiety attacks DS: Data Data Completed and Pending Labs on day of discharge: Labs from last 24 hours 09/02/23 05:13 WBC 12.0 H RBC 4.04 L Hgb 12.4 Hct 38.5 MCV 95.3 MCH 30.7 MCHC 32.2 RDW 12.9 Plt Count 291 MPV 9.0 Immature Gran % (Auto) 2.1 H Neut % (Auto) 68.8 Lymph % (Auto) 20.2 Jackson % (Auto) 7.1 Eos % (Auto) 1.5 Baso % (Auto) 0.3 Lymph # (Auto) 2.42 Jackson # (Auto) 0.85 Eos # (Auto) 0.18 Baso # (Auto) 0.04 Abs Immat Gran (auto) 0.25 H Absolute Neuts (auto) 8.23 H Absolute Nucleated RBC 0.00 Nucleated RBC % 0.0 Sodium 134 L Potassium 3.3 L Chloride 98 Carbon Dioxide 41 H Anion Gap -5 L BUN 29 H Creatinine 1.12 Estim Creat Clear Calc 42 Estimated GFR > 60 Glucose 100 H Calculated Osmolality 283 L Calcium 9.4 Magnesium 1.9 Total Bilirubin 0.7 AST 12 L ALT 17 Alkaline Phosphatase 72 Total Protein 6.2 L Albumin 3.3 L Preliminary micro results at discharge 08/30/23 12:00 Blood Culture - Preliminary Blood 08/30/23 11:45 Blood Culture - Preliminary
[2023-09-02] MEDS: SPIRONOLACTONE 12.5 MG TABLET PO (09:22)
[2023-09-02] MEDS: ENOXAPARIN 40 MG/0.4 ML SYRINGE SUB-Q (09:22)
[2023-09-02] MEDS: POTASSIUM CHLORIDE 20 MEQ ER TABLET PO (09:22)
[2023-09-02] MEDS: CYANOCOBALAMIN 1,000 MCG TABLET 1000 MCG PO (09:23)
[2023-09-02] MEDS: carvediloL 3.125 MG TABLET PO (09:24)
[2023-09-02] MEDS: levoFLOXacin 250 MG TABLET PO (09:24)
[2023-09-02] MEDS: busPIRone HCL 5 MG TABLET 10 MG PO (09:24)
[2023-09-02] MEDS: CHOLECALCIFEROL 1,000 UNITS TABLET 1000 UNITS PO (09:24)
[2023-09-02] MEDS: ASPIRIN 81 MG ENTERIC TABLET PO (09:25)
[2023-09-02] MEDS: FUROSEMIDE 40 MG TABLET PO (09:25)
[2023-09-02] MEDS: ATORVASTATIN 40 MG TABLET PO (09:25)
[2023-09-02] MEDS: SERTRALINE HCL 50 MG TABLET PO (09:31)
--- NOTE | 2023-09-02 12:39 | PC.NURSE ---
Pt discharged to home. RN gave pt discharge instructions regarding medications, medication changes, new medications. Pt instructed to not turn his O2 up higher than 2. Pt given referral for nursing home and [facility] elder care services. VSS. Pt taken to friends car via and assisted inside. Pt will call PCP tomorrow regarding Call Center Director referral and follow up appointment.
--- NOTE | 2023-09-04 09:24 | PC.NURSE ---
discharge call back completed, discharge instructions recieved, got a call from dr gastelum office and rescheduled appt for 09/04 at 1430, feels some better today, was still gunky yesterday, no questions or concerns at [facility] time
== END 2023-09-02 12:10 | disposition home or self-care (01) ==
LOC: CHSED 15:35 → CHS2ND 15:41
PROVIDERS: Nurse Practitioner; Admitting Provider Internal Medicine; Emergency Provider Emergency Medicine; Visit Provider Internal Medicine
DX: J44.1 Chronic obstructive pulmonary disease with (acute) exacerbation (principal); J96.11 Chronic respiratory failure with hypoxia; I25.5 Ischemic cardiomyopathy; I50.9 Heart failure, unspecified; N40.0 Benign prostatic hyperplasia without lower urinary tract symptoms; Z99.81 Dependence on supplemental oxygen; F41.8 Other specified anxiety disorders; I25.2 Old myocardial infarction; F43.10 Post-traumatic stress disorder, unspecified; G47.33 Obstructive sleep apnea (adult) (pediatric); Z20.822 Contact with and (suspected) exposure to COVID-19; Z89.021 Acquired absence of right finger(s); Z95.5 Presence of coronary angioplasty implant and graft; Z95.810 Presence of automatic (implantable) cardiac defibrillator; Z87.891 Personal history of nicotine dependence; Z79.82 Long term (current) use of aspirin; Z79.51 Long term (current) use of inhaled steroids; Z86.73 Personal history of transient ischemic attack (TIA), and cerebral infarction without residual deficits
CPT/HCPCS: 36415; 36600; 71045; 80053; 81003; 82805; 83605; 83735; 83880; 84484; 85025; 85380; 85610; 85730; 87040; 87637; 93005; 93306; 94640; 96365; 96366; 96367; 96372; 96375; 96376; 99285; A9270; G0378; J1650; J1956; J2919; J3475; J7512

== ENCOUNTER 2023-09-23 14:08 | Outpatient (CLI) | payer MEDICARE, SELFPAY ==
[2023-09-23 14:51] LABS: Anion Gap 9 mmol/L (4-12); Blood Urea Nitrogen 22 mg/dL (7-18); Calcium 8.7 mg/dL (8.5-10.1); Carbon Dioxide 31 mmol/L (21-32); Chloride 103 mmol/L (98-108); Estimated Glomerular Filt Rate 51; Glucose 99 mg/dL (70-99); Osmolality Calculated 299 mOsm/kg (285-295); Potassium 4.3 mmol/L (3.5-5.1); Sodium 143 mmol/L (136-145)
== END 2023-09-23 14:09 | disposition home or self-care (01) ==
LOC: CHSLAB 14:12
DX: I10 Essential (primary) hypertension (principal)
CPT/HCPCS: 36415; 80048

== ENCOUNTER 2023-12-01 12:06 | Emergency (ER) | payer MEDICARE, OTHER, SELFPAY ==
[2023-12-01] VITALS (8 sets, daily range): BP systolic 121–139; BP diastolic 56–68; PULSE 78–86; RESP 14–26; TEMP 36.3; O2SAT 92–100
--- NOTE | ~2023-12-01 | XR_ITS ---
EXAMINATION: XR chest 1V portable DATE: 12/01/2023 12:31 INDICATION: Shortness of breath. TECHNIQUE: A single frontal view of the chest was obtained on 2 radiographs. COMPARISON: Chest single view 08/30/2023 FINDINGS: There is no pneumonia, pleural effusion, or pneumothorax. The heart size is normal. There i s a left chest pacer/defibrillator with lead in right ventricle. IMPRESSION: 1. No acute cardiopulmonary disease. Reviewed, dictated and finalized at location A.
--- NOTE | 2023-12-01 12:09 | ECG_ITS ---
Test Date: 2023-12-01 12:25:39 Measurements Intervals [place] Rate: 76 P: 81 IA: 191 QRS: 38 QRSD: 91 T: 99 QT: 307 QTc: 345 Interpretive Statements SINUS RHYTHM WITH OCCASIONAL VENTRICULAR PREMATURE COMPLEXES ANTEROSEPTAL MYOCARDIAL INFARCTION , OF INDETERMINATE AGE BORDERLINE ST-T WAVE ABNORMALITY- HIGH LATERAL LEADS BASELINE ARTIFACT- II, III, AVF, V1 ABNORMAL ECG No previous ECG available for comparison Electronically Signed On 12-01-2023 12:52:25 CDT by De Alcocer D.O.
--- NOTE | 2023-12-01 12:11 | ED.SOB ---
HPI - SOB/Dyspnea General Chief Complaint: Shortness of Breath/Dyspnea Stated Complaint: SOB Time Seen by Provider: 12/01/23 12:08 History of Present Illness HPI Narrative: Pt presents with SOB for about a week but getting worse the last two days. Pt denies fever, Pt says he is not able to cough anything up. Pt has COPD and CHF. Pt is on 3 L NC at home. Pt has some swelling to feet but not worse than usual. Pt tried a neb at home without much releif. Related Data Home Medications Medication Instructions Recorded Confirmed atorvastatin 40 mg tablet 40 mg PO DAILY 02/25/20 12/01/23 coenzyme Q10 30 mg capsule (Co 200 mg PO QPM 02/25/20 12/01/23 Q-10) cyanocobalamin (vitamin B-12) 1,000 mcg PO DAILY 02/25/20 12/01/23 1,000 mcg capsule alprazolam 0.25 mg tablet (Xanax) 0.25 mg PO HS 10/16/20 12/01/23 calcium carbonate 600 mg PO DAILY 10/16/20 12/01/23 carvedilol 3.125 mg tablet 3.125 mg PO BID 10/16/20 12/01/23 ipratropium 0.5 mg-albuterol 3 mg 3 ml inhalation TID 10/16/20 12/01/23 (2.5 mg base)/3 mL nebulization soln ipratropium 20 mcg-albuterol 100 1 puff inhalation QID 10/16/20 12/01/23 mcg/actuation mist for inhalation (Combivent Respimat) nitroglycerin 0.4 mg sublingual 0.4 mg sublingual PRN PRN Chest 10/16/20 12/01/23 tablet (Nitrostat) Pain potassium chloride 20 mEq 20 meq PO DAILY 10/16/20 12/01/23 tablet,extended release(part/cryst) triamcinolone acetonide 0.1 % 1 applic topical BID 10/16/20 12/01/23 topical cream ammonium lactate 12 % topical cream 1 applic topical BID 08/25/23 12/01/23 cholecalciferol (vitamin D3) 25 25 mcg PO DAILY 08/25/23 12/01/23 mcg (1,000 unit) tablet (Vitamin D3) loratadine 10 mg tablet (Claritin) 10 mg PO DAILY PRN Allergy Symptoms 08/25/23 12/01/23 sertraline 50 mg tablet 50 mg PO DAILY 08/25/23 12/01/23 budesonide 0.25 mg/2 mL suspension 0.25 mg inhalation TID 08/30/23 12/01/23 for nebulization (Pulmicort) formoterol fumarate 20 mcg/2 mL 20 mcg inhalation BID 08/30/23 12/01/23 solution for nebulization Allergies Allergy/AdvReac Type Severity Reaction Status Date / Time tramadol Allergy Intermediate Hives Verified 12/01/23 12:32 amoxicillin Allergy Mild Rash Verified 12/01/23 12:32 doxycycline Allergy Mild Rash Verified 12/01/23 12:32 latex Allergy Mild Rash Verified 12/01/23 12:32 Review of Systems Review of Systems: All systems reviewed & are unremarkable except as noted in HPI and below PMFSH Past Medical History Medical History (Updated 12/01/23 @ 13:46 by Holly Raphael III, ) Arthritis Chronic obstructive pulmonary disease Chronic respiratory failure with hypoxia, on home oxygen therapy Depression with anxiety GI bleed X3 since 2017. He has had multiple upper and lower endoscopies and no source of bleeding has ever been found. Ischemic cardiomyopathy Echocardiogram in March 2020 showed a severely enlarged left ventricular chamber with severely reduced systolic function and estimated EF of 30 to 35%. Mid to apical septum is thin and akinetic. Mid to apical anterior wall and apex are akinetic. Myocardial infarction Status post stent x1. Posttraumatic stress disorder Transient ischemic attack Traumatic amputation of multiple fingers The patient lost his right 1st through 3rd fingers while stationed in [employer]. Valvular heart disease Echocardiogram in March 2020 showed mild aortic valve regurgitation, moderate mitral valve regurgitation, and mild tricuspid valve regurgitation. Surgical History Surgical History History of cataract removal with insertion of prosthetic lens History of hemiarthroplasty of left hip Presence of combination internal cardiac defibrillator (ICD) and pacemaker Stented coronary artery Family History Family History Other Unknown family medical history Social History Social History
[2023-12-01] MEDS: methylPREDNISolone SOD SUCC 125 MG VIAL IV PUSH (12:25)
[2023-12-01 12:27] LABS: Basophils Absolute Auto 0.06 K/mm3 (0.00-0.10); Basophils Percent Auto 0.6 % (0.0-1.0); Eosinophils Absolute Auto 0.37 K/mm3 (0.02-0.50); Eosinophils Percent Auto 3.7 % (1.0-6.0); Hematocrit 38.5 % (37.0-46.0); Hemoglobin 12.7 g/dL (12.4-15.3); Immature Granulocyte Absolute 0.04 K/mm3 (0.00-0.00); Immature Granulocyte Percent A 0.4 % (0.0-0.0); Lymphocytes Absolute Auto 1.96 K/mm3 (1.10-4.50); Lymphocytes Percent Auto 19.4 % (18.0-42.0); Mean Corpuscular Hemoglobin 31.6 pg (27.0-31.0); Mean Corpuscular Volume 95.8 fL (78.0-102.0); Mean Platelet Volume 9.6 fl (8.7-11.0); Monocytes Absolute Auto 0.66 K/mm3 (0.10-0.90); Monocytes Percent Auto 6.5 % (2.0-11.0); Neutrophils Absolute Auto 6.99 K/mm3 (1.70-7.20); Neutrophils Percent Auto 69.4 % (50.0-70.0); Platelet Count Result 245 K/mm3 (150-420); Red Blood Count 4.02 M/mm3 (4.70-6.10); Red Cell Distribution Width 12.3 % (11.6-14.4); White Blood Count 10.1 K/mm3 (4.8-10.8)
[2023-12-01] MEDS: ALBUTEROL SULFATE NEB 2.5 MG/3 ML INH INHALATION ×3 (12:32→12:34)
[2023-12-01 12:41] LABS: Partial Thromboplastin Time 27.3 Sec (23.9-30.70); Prothrombin Time 10.8 Seconds (9.50-12.1)
[2023-12-01 12:50] LABS: Alanine Aminotransferase 13 U/L (16-63); Alkaline Phosphatase 83 U/L (46-116); Anion Gap 6 mmol/L (4-12); Aspartate Amino Transferase 14 U/L (15-37); Bilirubin,Total 1.2 mg/dL (0.00-1.00); Blood Urea Nitrogen 25 mg/dL (7-18); Calcium 9.7 mg/dL (8.5-10.1); Carbon Dioxide 34 mmol/L (21-32); Chloride 100 mmol/L (98-108); Estimated CRCL calculation 42 ml/min; Estimated Glomerular Filt Rate > 60; Glucose 97 mg/dL (70-99); Magnesium 1.9 mg/dL (1.8-2.4); NT Pro B Type Natriuretic Pept 817 pg/mL (0-450); Osmolality Calculated 294 mOsm/kg (285-295); Potassium 3.9 mmol/L (3.5-5.1); Sodium 140 mmol/L (136-145); Total Protein 7.4 g/dL (6.4-8.2); Troponin I 10.1 ng/L (0.00-60.4)
[2023-12-01 13:36] LABS: Appearance Urine Clear (Clear); Bilirubin Urine Negative (Negative); Blood Urine Negative (Negative); Color Urine Light Yellow (Yellow); Glucose Urine UA Negative (Negative); Ketones Urine Negative (Negative); Leukocyte Esterase Ur Negative (Negative); Nitrate Urine Negative (Negative); Protein Urine Negative (Negative); Urobilinogen Urine 0.2 mg/dL (0.2-1.0)
[2023-12-01 13:39] LABS: Add Urine Microscopic? NO
== END 2023-12-01 13:55 | disposition home or self-care (01) ==
PROVIDERS: Emergency Provider Emergency Medicine
DX: J44.1 Chronic obstructive pulmonary disease with (acute) exacerbation (principal); I50.9 Heart failure, unspecified; Z86.73 Personal history of transient ischemic attack (TIA), and cerebral infarction without residual deficits; Z87.891 Personal history of nicotine dependence
CPT/HCPCS: 36415; 71045; 80053; 81003; 83735; 83880; 84484; 85025; 85610; 85730; 93005; 94640; 96374; 99284; J2919

== ENCOUNTER 2023-12-06 10:33 | Inpatient (IN) | payer MEDICARE, OTHER, SELFPAY ==
[2023-12-06] VITALS (13 sets, daily range): BP systolic 105–139; BP diastolic 52–81; PULSE 69–106; RESP 16–26; TEMP 36.2–36.3; O2SAT 94–100; BMI 20.6
--- NOTE | ~2023-12-06 | XR_ITS ---
EXAMINATION: XR chest 1V portable DATE: 12/06/2023 11:26 INDICATION: Shortness of breath. TECHNIQUE: A single frontal view of the chest was obtained on 2 radiographs. COMPARISON: Chest single view 12/01/2023 FINDINGS: Calcified right lung nodules are consistent with old granulomatous disease. No pleural effu domenica or pneumothorax. The heart size is normal. There is a left chest pacer/defibrillator with leads in right ventricle. IMPRESSION: 1. No acute cardiopulmonary disease. Reviewed, dictated and finalized at location A.
--- NOTE | ~2023-12-06 | XR_ITS ---
Clinical Indication: Shortness of breath PA and lateral views of the chest: Comparison: 12/06/2023 Findings: The lungs are clear, without evidence of focal consolidation or pleural effusion. Stable CO PD pattern. Cardiomediastinal silhouette is within normal limits, with pacemaker device. Bones and so ft tissues are unremarkable. Impression: COPD. No acute abnormality evident. Pacemaker device. Reviewed, dictated and finalized at location M. Impression: COPD. No acute abnormality evident. Pacemaker device.
--- NOTE | 2023-12-06 10:41 | ED.SOB ---
HPI - SOB/Dyspnea General Chief Complaint: Shortness of Breath/Dyspnea Stated Complaint: SOB Time Seen by Provider: 12/06/23 10:41 Source: patient Mode of arrival: ambulatory Limitations: no limitations History of Present Illness HPI Narrative: 83-year-old male with a history of anxiety / depression, COPD on home oxygen 3 liters/minute, ischemic cardiomyopathy, status post stent, CHF with an EF of 20-25% presented to the ED on 12/01/2023 for COPD exacerbation. The patient was treated with prednisone and Zithromax. He presents today with -- worsening shortness of breath in spite of breathing treatments, Zithromax and prednisone. No fever or chills. No leg swelling. No chest pain. -- Had an episode of sweating at home. patient is not on any diabetic medications. -- Cough with mucoid sputum without any mucopurulent MD elicited complaint: shortness of breath and cough Pertinent past history: COPD and congestive heart failure Onset (ago): day(s) ( 5 days) Severity: severe Exacerbating factors: exertion Relieving factors: oxygen, rest and bronchodilators Known history of: COPD and congestive heart failure Associated symptoms: denies other symptoms, cough and sputum production Treatment prior to arrival: oxygen, bronchodilator and other ( prednisone 50 mg and Zithromax) Related Data Home oxygen amount: 3 liters Home Medications Medication Instructions Recorded Confirmed atorvastatin 40 mg tablet 40 mg PO DAILY 02/25/20 12/01/23 coenzyme Q10 30 mg capsule (Co 200 mg PO QPM 02/25/20 12/01/23 Q-10) cyanocobalamin (vitamin B-12) 1,000 mcg PO DAILY 02/25/20 12/01/23 1,000 mcg capsule alprazolam 0.25 mg tablet (Xanax) 0.25 mg PO HS 10/16/20 12/01/23 calcium carbonate 600 mg PO DAILY 10/16/20 12/01/23 carvedilol 3.125 mg tablet 3.125 mg PO BID 10/16/20 12/01/23 ipratropium 0.5 mg-albuterol 3 mg 3 ml inhalation TID 10/16/20 12/01/23 (2.5 mg base)/3 mL nebulization soln ipratropium 20 mcg-albuterol 100 1 puff inhalation QID 10/16/20 12/01/23 mcg/actuation mist for inhalation (Combivent Respimat) nitroglycerin 0.4 mg sublingual 0.4 mg sublingual PRN PRN Chest 10/16/20 12/01/23 tablet (Nitrostat) Pain potassium chloride 20 mEq 20 meq PO DAILY 10/16/20 12/01/23 tablet,extended release(part/cryst) triamcinolone acetonide 0.1 % 1 applic topical BID 10/16/20 12/01/23 topical cream ammonium lactate 12 % topical cream 1 applic topical BID 08/25/23 12/01/23 cholecalciferol (vitamin D3) 25 25 mcg PO DAILY 08/25/23 12/01/23 mcg (1,000 unit) tablet (Vitamin D3) loratadine 10 mg tablet (Claritin) 10 mg PO DAILY PRN Allergy Symptoms 08/25/23 12/01/23 sertraline 50 mg tablet 50 mg PO DAILY 08/25/23 12/01/23 budesonide 0.25 mg/2 mL suspension 0.25 mg inhalation TID 08/30/23 12/01/23 for nebulization (Pulmicort) formoterol fumarate 20 mcg/2 mL 20 mcg inhalation BID 08/30/23 12/01/23 solution for nebulization Allergies Allergy/AdvReac Type Severity Reaction Status Date / Time tramadol Allergy Intermediate Hives Verified 12/01/23 12:32 amoxicillin Allergy Mild Rash Verified 12/01/23 12:32 doxycycline Allergy Mild Rash Verified 12/01/23 12:32 latex Allergy Mild Rash Verified 12/01/23 12:32 Review of Systems Review of Systems: All systems reviewed & are unremarkable except as noted in HPI and below Constitutional: Constitutional: Reports as per HPI and Reports no additional constitutional complaints Eyes: Eyes: Reports as per HPI and Reports no additional eye complaints ENT: Reports system reviewed and no additional complaints, except as documented and Reports as per HPI Cardiovascular: Cardiovascular: Reports as per HPI and Reports no additional cardiovascular complaints Respiratory: Respiratory: Reports as per HPI, Reports no additional respiratory complaints, Reports cough and Reports dyspnea Gastrointestinal: Gastrointestinal: Reports as per HPI and Reports no additional gastrointestinal complaints Genito
[2023-12-06 11:29] LABS: Base Excess ABG 7.4 mmol/L (0-2); HCO3 ABG 31.7 mmol/L (23-29); Oxygen Content ABG 18.5 %vol (16.0-22.0); Oxygen Saturation ABG 97.9 % (95-97); Oxyhemoglobin 97.5 % (94-100); PCO2 ABG 43.3 mmHg (35-45); PO2 ABG 118.8 mmHg (75-85); pH ABG 7.48 (7.35-7.45)
[2023-12-06 11:36] LABS: Device NASAL CANNULA; Modified Allen's Test Pass; Site Drawn LEFT RADIAL
[2023-12-06 11:45] LABS: Basophils Absolute Auto 0.03 K/mm3 (0.00-0.10); Basophils Percent Auto 0.2 % (0.0-1.0); Eosinophils Absolute Auto 0.11 K/mm3 (0.02-0.50); Eosinophils Percent Auto 0.7 % (1.0-6.0); Hematocrit 39.5 % (37.0-46.0); Immature Granulocyte Absolute 0.12 K/mm3 (0.00-0.00); Immature Granulocyte Percent A 0.8 % (0.0-0.0); Lymphocytes Absolute Auto 2.15 K/mm3 (1.10-4.50); Lymphocytes Percent Auto 14.1 % (18.0-42.0); Mean Corpuscular HGB Conc 32.9 g/dL (32-36); Mean Corpuscular Hemoglobin 31.3 pg (27.0-31.0); Mean Corpuscular Volume 95.2 fL (78.0-102.0); Mean Platelet Volume 10.4 fl (8.7-11.0); Monocytes Absolute Auto 1.03 K/mm3 (0.10-0.90); Monocytes Percent Auto 6.8 % (2.0-11.0); Neutrophils Absolute Auto 11.78 K/mm3 (1.70-7.20); Neutrophils Percent Auto 77.4 % (50.0-70.0); Platelet Count Result 310 K/mm3 (150-420); Red Blood Count 4.15 M/mm3 (4.70-6.10); Red Cell Distribution Width 12.5 % (11.6-14.4); White Blood Count 15.2 K/mm3 (4.8-10.8)
[2023-12-06 11:52] LABS: Lactic Acid Reflex 1.3 mmol/L (0.4-2.0)
[2023-12-06 11:54] LABS: D Dimer 0.33 mg/L (0.19-0.50); Partial Thromboplastin Time 24.1 Sec (23.9-30.70); Prothrombin Time 10.8 Seconds (9.50-12.1)
[2023-12-06 12:05] LABS: Alanine Aminotransferase 18 U/L (16-63); Albumin Level 3.5 g/dL (3.4-5.0); Alkaline Phosphatase 75 U/L (46-116); Anion Gap 6 mmol/L (4-12); Aspartate Amino Transferase 16 U/L (15-37); Bilirubin,Total 0.9 mg/dL (0.00-1.00); Blood Urea Nitrogen 25 mg/dL (7-18); Calcium 9.2 mg/dL (8.5-10.1); Carbon Dioxide 35 mmol/L (21-32); Chloride 100 mmol/L (98-108); Estimated CRCL calculation 41 ml/min; Estimated Glomerular Filt Rate > 60; Glucose 113 mg/dL (70-99); Lipase 18 U/L (16-77); NT Pro B Type Natriuretic Pept 1299 pg/mL (0-450); Osmolality Calculated 297 mOsm/kg (285-295); Potassium 3.6 mmol/L (3.5-5.1); Sodium 141 mmol/L (136-145); Total Protein 6.7 g/dL (6.4-8.2); Troponin I 10.9 ng/L (0.00-60.4)
[2023-12-06 12:26] LABS: Influenza A QL RT-PCR Negative (Negative); Influenza B QL RT-PCR Negative (Negative); RSV RNA, RT-PCR Negative (Negative); SARS-CoV-2 RNA PCR Negative (Negative)
[2023-12-06] MEDS: methylPREDNISolone SOD SUCC 40 MG VIAL IV PUSH ×2 (13:25→20:44)
[2023-12-06] MEDS: PIPERACILLN/TAZ 3.375GM/NS50ML 3.375 GM/50 ML BAG IVPB ×2 (13:25→17:49)
--- NOTE | 2023-12-06 13:53 | PC.NURSE ---
Patient admitted to room 204 per w/c from the ER, is alert and oriented, denies pain.
[2023-12-06] MEDS: ALPRAZolam (*CRX) 0.5 MG TABLET PO ×2 (15:47→20:44)
[2023-12-06] MEDS: ALBUTEROL SULFATE NEB 2.5 MG/3 ML INH INHALATION (18:28)
[2023-12-06] MEDS: carvediloL 3.125 MG TABLET PO (20:45)
[2023-12-06] MEDS: TAMSULOSIN HCL 0.4 MG CAPSULE 0.8 MG PO (20:45)
[2023-12-07] VITALS (13 sets, daily range): BP systolic 115–136; BP diastolic 51–63; PULSE 65–97; RESP 18–22; TEMP 36.4–36.5; O2SAT 94–100
[2023-12-07] MEDS: ALBUTEROL SULFATE NEB 2.5 MG/3 ML INH INHALATION ×4 (00:20→18:16)
[2023-12-07] MEDS: PIPERACILLN/TAZ 3.375GM/NS50ML 3.375 GM/50 ML BAG IVPB ×4 (00:33→18:07)
[2023-12-07] MEDS: methylPREDNISolone SOD SUCC 40 MG VIAL IV PUSH ×3 (05:28→21:04)
[2023-12-07] MEDS: ALPRAZolam (*CRX) 0.5 MG TABLET PO ×3 (08:32→21:04)
[2023-12-07] MEDS: PANTOPRAZOLE SODIUM IV 40 MG VIAL IV PUSH (08:32)
[2023-12-07] MEDS: FUROSEMIDE INJ 40 MG/4 ML VIAL IV PUSH (08:32)
[2023-12-07] MEDS: SERTRALINE HCL 50 MG TABLET PO (08:33)
[2023-12-07] MEDS: carvediloL 3.125 MG TABLET PO ×2 (08:33→21:04)
[2023-12-07] MEDS: SPIRONOLACTONE 25 MG TABLET PO (08:34)
[2023-12-07] MEDS: POTASSIUM CHLORIDE 20 MEQ ER TABLET PO (08:34)
[2023-12-07] MEDS: ATORVASTATIN 40 MG TABLET PO (08:35)
[2023-12-07] MEDS: LORATADINE 10 MG TABLET PO (09:00)
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
[2023-12-07] MEDS: diphenhydrAMINE HCl INJ 50 MG/ML VIAL 25 MG IV PUSH (16:30)
[2023-12-07] MEDS: TAMSULOSIN HCL 0.4 MG CAPSULE 0.8 MG PO (21:04)
[2023-12-08] VITALS (14 sets, daily range): BP systolic 126–161; BP diastolic 52–69; PULSE 60–101; RESP 16–18; TEMP 36.2–36.9; O2SAT 98–100
[2023-12-08] MEDS: IPRATROPIUM 0.5 MG/ALBUTEROL SULFATE 2.5 MG AMPUL.NEB 3 ML INHALATION ×4 (00:02→16:43)
[2023-12-08] MEDS: PIPERACILLN/TAZ 3.375GM/NS50ML 3.375 GM/50 ML BAG IVPB ×2 (00:14→05:03)
[2023-12-08] MEDS: methylPREDNISolone SOD SUCC 40 MG VIAL IV PUSH ×3 (05:03→21:18)
[2023-12-08 06:22] LABS: Hematocrit 40.6 % (37.0-46.0); Hemoglobin 12.7 g/dL (12.4-15.3); Mean Corpuscular HGB Conc 31.3 g/dL (32-36); Mean Corpuscular Hemoglobin 31.8 pg (27.0-31.0); Mean Corpuscular Volume 101.8 fL (78.0-102.0); Mean Platelet Volume 10.1 fl (8.7-11.0); Platelet Count Result 298 K/mm3 (150-420); Red Blood Count 3.99 M/mm3 (4.70-6.10); Red Cell Distribution Width 12.4 % (11.6-14.4); White Blood Count 19.3 K/mm3 (4.8-10.8)
[2023-12-08 07:08] LABS: Anion Gap 10 mmol/L (4-12); Blood Urea Nitrogen 34 mg/dL (9-20); Carbon Dioxide 30 mmol/L (22-30); Chloride 96 mmol/L (98-107); Estimated CRCL calculation 48 ml/min; Estimated Glomerular Filt Rate > 60; Glucose 126 mg/dL (65-110); Osmolality Calculated 291 mOsm/kg (285-295); Potassium 4.2 mmol/L (3.4-5.0); Sodium 136 mmol/L (137-145)
[2023-12-08] MEDS: POTASSIUM CHLORIDE 20 MEQ ER TABLET PO (09:06)
[2023-12-08] MEDS: ALPRAZolam (*CRX) 0.5 MG TABLET PO ×2 (09:06→21:00)
[2023-12-08] MEDS: SERTRALINE HCL 50 MG TABLET PO (09:06)
[2023-12-08] MEDS: FUROSEMIDE INJ 40 MG/4 ML VIAL IV PUSH (09:06)
[2023-12-08] MEDS: PANTOPRAZOLE SODIUM IV 40 MG VIAL IV PUSH (09:06)
[2023-12-08] MEDS: SPIRONOLACTONE 25 MG TABLET PO (09:06)
[2023-12-08] MEDS: ATORVASTATIN 40 MG TABLET PO (09:07)
[2023-12-08] MEDS: carvediloL 3.125 MG TABLET PO ×2 (09:07→20:52)
--- NOTE | 2023-12-08 09:26 | PM.IMPN ---
Progress Note: A&P Assessment and Plan (1) Acute exacerbation of chronic obstructive pulmonary disease: Code(s): J44.1 - Chronic obstructive pulmonary disease with (acute) exacerbation Status: Acute Assessment and Plan: Worsening shortness of breath and increased productive cough on admission. He had a leukocytosis of 15,000, however he had been on prednisone after being seen in the ER on 11/30 for COPD exacerbation. X-ray imaging shows no cardiopulmonary disease. He was afebrile, lactic acid negative. Iv steroids Solu-Medrol 40 mg every 8 hours oxygen 4l NC wean to 3L NC when possible keep saturation above 88% IV Zosyn---can de-escalate to Rocephin and Azithromycin. Pseudomonas risk is low. Duo nebs q 6 hours (2) CHF (congestive heart failure): Code(s): I50.9 - Heart failure, unspecified Status: Acute Assessment and Plan: Echo from 09/01/2023 shows moderately enlarged left ventricular chamber with a systolic function estimated at 20-25%, LV diastolic function is grade 1 diastolic dysfunction and mild regurgitation of aortic, mitral, and tricuspid good bowels. No pulmonary hypertension. BNP on admission 1299. Patient is on carvedilol 3.125 b.i.d., Lasix 40 mg b.i.d., spironolactone 25 mg daily. Diuresis with IV Lasix 40 mg IVP, can switch back to PO lasix 40 mg daily. Appears euvolemic. Continue home medications Optimize medications and start low dose Entresto Plan DVT prophylaxis: Lovenox GI prophylaxis: Protonix Glycemic control: Monitor glucose on BMP while receiving IV steroids. Blood sugar this morning on fasting labs 126 Code Status: Full code Disposition: Patient is from home with complaints of shortness of breath and increased cough production. He is being treated for COPD exacerbation and suspected CHF exacerbation. He will remain inpatient on IV antibiotics and IV steroids. Optimizing his medication regimen for his CHF. Anticipate inpatient stay for another 1-2 days. PT/OT consulted. Medication reconciliation obtained via the following: Nurse completed on admission The file time of this note does not necessarily represent the time the patient was seen. Advance Care Plan I have confirmed that the patient's Advanced Care Plan is present, code status is documented, or surrogate decision maker is listed in patient medical record.: Yes Medication Reconciliation I have utilized all available resources to obtain, update and review the patients current medications (includes all prescriptions, OTC, herbals, cannabis, and nutritional supplements).: Yes Subjective Date/time seen: 12/08/23 09:26 Interval history: This is an 83-year-old gentleman with a past medical history significant for COPD on 3 L oxygen, ischemic cardiomyopathy, CAD status post stent, TIA, pacemaker and AICD who presented to the hospital initially with complaints of shortness of breath. He was seen recently in the ER and discharge with azithromycin and prednisone for suspected COPD exacerbation. He returns on 12/05 with worsening symptoms of shortness of breath and productive cough. 12/07: Today he says he is doing slightly better. He is still short of breath and feels congested. He is asking for something to help him thin his secretions. He also has a runny nose. Normally he can walk freely in his home and do small chores, washing his dishes for about 15 minutes before needing to sit and rest. Review of Systems Review of Systems: All systems reviewed & are unremarkable except as noted in HPI and below Exam Narrative: General: chronically ill appearing, muscle wasting, appears stated age. HEENT: normocephalic, atraumatic. Mucous membranes moist. EOMI, PERRLA, bilateral sclera anicteric, no conju
[2023-12-08] MEDS: ENOXAPARIN 40 MG/0.4 ML SYRINGE SUB-Q (11:30)
[2023-12-08] MEDS: FLUTICASONE PROPIONATE 0.05% NA SPR 16 GM BTL (*BKC) 1 SPRAY NASAL ×2 (12:07→20:53)
[2023-12-08] MEDS: guaiFENesin 12 HR 600 MG TABCR 1200 MG PO ×2 (12:08→20:52)
[2023-12-08] MEDS: LORATADINE 10 MG TABLET PO (12:08)
[2023-12-08] MEDS: SACUBITRIL/VALSARTAN 24-26 MG TABLET 1 TAB PO (20:52)
[2023-12-08] MEDS: TAMSULOSIN HCL 0.4 MG CAPSULE 0.8 MG PO (20:53)
[2023-12-09] VITALS (11 sets, daily range): BP systolic 92–134; BP diastolic 44–58; PULSE 18–88; RESP 16–18; TEMP 35.8–36.4; O2SAT 97–100
[2023-12-09 05:19] LABS: Hematocrit 36.3 % (37.0-46.0); Hemoglobin 12.1 g/dL (12.4-15.3); Mean Corpuscular HGB Conc 33.3 g/dL (32-36); Mean Corpuscular Hemoglobin 31.4 pg (27.0-31.0); Mean Corpuscular Volume 94.3 fL (78.0-102.0); Mean Platelet Volume 9.8 fl (8.7-11.0); Platelet Count Result 306 K/mm3 (150-420); Red Blood Count 3.85 M/mm3 (4.70-6.10); Red Cell Distribution Width 12.6 % (11.6-14.4)
[2023-12-09 05:24] LABS: White Blood Count 21.6 K/mm3 (4.8-10.8)
--- NOTE | 2023-12-09 05:25 | PC.NURSE ---
Lab called to report a critical WBC of 21.6.
[2023-12-09] MEDS: methylPREDNISolone SOD SUCC 40 MG VIAL IV PUSH ×2 (05:35→17:37)
[2023-12-09] MEDS: IPRATROPIUM 0.5 MG/ALBUTEROL SULFATE 2.5 MG AMPUL.NEB 3 ML INHALATION ×3 (05:35→16:34)
[2023-12-09 05:43] LABS: Band Neutrophils Percent 1 % (0-6); Basophils Percent Manual 0 % (0-1); Eosinophils Percent Manual 0 % (1-6); Lymphocytes Absolute Manual 0.64 K/mm3 (1.1-4.5); Lymphocytes Percent Manual 3 % (18-44); Monocytes Percent Manual 0 % (3-9); Neutrophils Absolute Manual 20.95 K/mm3 (1.3-6.7); Neutrophils Percent Manual 96 % (46-73); Platelet Estimate Adequate (Adequate); Total Cells Counted 100
--- NOTE | 2023-12-09 06:25 | PC.NURSE ---
Unable to contact provider; Message left regarding critical WBC on voice mail.
[2023-12-09 06:30] LABS: Alanine Aminotransferase 14 U/L (6-50); Albumin Level 3.4 g/dL (3.5-5.1); Alkaline Phosphatase 67 U/L (38-126); Anion Gap 6 mmol/L (4-12); Aspartate Amino Transferase 32 U/L (17-59); Bilirubin,Total 0.6 mg/dL (0.2-1.3); Blood Urea Nitrogen 40 mg/dL (9-20); Calcium 9.5 mg/dL (8.4-10.2); Carbon Dioxide 36 mmol/L (22-30); Chloride 93 mmol/L (98-107); Estimated CRCL calculation 59 ml/min; Estimated Glomerular Filt Rate > 60; Glucose 139 mg/dL (65-110); Magnesium 2.2 mg/dL (1.6-2.3); Osmolality Calculated 291 mOsm/kg (285-295); Potassium 4.2 mmol/L (3.4-5.0); Sodium 135 mmol/L (137-145)
--- NOTE | 2023-12-09 07:09 | WPDPN ---
Progress Note: A&P Assessment and Plan (1) CHF (congestive heart failure): Code(s): I50.9 - Heart failure, unspecified Status: Acute Assessment and Plan: IV lasix discontinued euvolemic monitor bnp (2) Acute exacerbation of chronic obstructive pulmonary disease: Code(s): J44.1 - Chronic obstructive pulmonary disease with (acute) exacerbation Status: Acute Assessment and Plan: breathing treatment Iv steroids oxygen 4l nc wean to 3l nc when possible keep saturation above 88% home oxygen already (3) Leukocytosis, unspecified: Code(s): D72.829 - Elevated white blood cell count, unspecified Status: Acute Assessment and Plan: decreased steroid use continue on antibiotic monitor s/s of infection chest xray today (4) GERD (gastroesophageal reflux disease): Code(s): K21.9 - Gastro-esophageal reflux disease without esophagitis Status: Acute Assessment and Plan: continue with PPI (5) CHF exacerbation: Code(s): I50.9 - Heart failure, unspecified Status: Acute Subjective Date/time seen: 12/09/23 07:09 Interval history: Pt states he is feeling slightly better reviewed vitals reviewed labs WBC elevated no s/s of infection chest xray order deesculated steroids will convert to po in the am decreased oxygen to 3l nc needs to keep saturation above 88% plan for possible discharge in am Exam Narrative: General: chronically ill appearing, muscle wasting, appears stated age. HEENT: normocephalic, atraumatic. Mucous membranes moist. EOMI, PERRLA, bilateral sclera anicteric, no conjunctival injection. Neck supple without JVD, lymphadenopathy, or bruit. Respiratory: diminished to auscultation bilaterally. No rales/rhonic/ slight wheezes. Cardiovascular: Regular rate and rhythm, normal S1-S2 upon auscultation. No murmurs, rubs, or clicks. PMI is nondisplaced, capillary refill less than 3 second. Abdomen: Soft, round, no pulsatile masses, nondistended and nontender. No rebound, no guarding. No CVA tenderness, no hepatosplenomegaly. Bowel sounds present to all four quadrants. No high pitch or tinkling sounds, resonant to percussion. Extremities: No cyanosis, clubbing, or edema present. Pulses are palpable 2/2. Active ROM to all four extremities. Neuro: Alert and orientated x 4. PERRLA. Cranial nerves 2-12 intact without focal deficit. Skin: Warm, dry, and intact, without rash, erythema, or lesion. Lines: PIV Incisions: NA Psych: pleasant, cooperative, normal speech, normal affect, no hallucinations, no dysarthria Objective Data Vital Signs Vital Signs: Vital Signs - 24 hr 12/08/23 08:00 12/08/23 08:00 12/08/23 09:07 Temperature 97.2 F L Pulse Rate 63 63 63 Respiratory Rate 16 16 Blood Pressure 133/52 L Pulse Oximetry 100 100 Oxygen Delivery Nasal Cannula Nasal Cannula Oxygen Flow Rate 4 4 12/08/23 11:30 12/08/23 11:40 12/08/23 16:00 Temperature 97.4 F L Pulse Rate 63 65 73 Respiratory Rate 16 16 18 Blood Pressure 126/56 L Pulse Oximetry 98 100 100 Oxygen Delivery Nasal Cannula Oxygen Flow Rate 4 3 12/08/23 16:40 12/08/23 16:50 12/08/23 20:52 Temperature Pulse Rate 62 65 65 Respiratory Rate 18 18 Blood Pressure Pulse Oximetry 98 100 Oxygen Delivery Oxygen Flow Rate 12/09/23 00:00 12/09/23 05:37 12/09/23 05:46 Temperature 97.5 F L Pulse Rate 67 66 77 Respiratory Rate 16 16 16 Blood Pressure 134/58 L Pulse Oximetry 99 100 100 Oxygen Delivery Nasal Cannula Oxygen Flow Rate 4 3 3 Intake/Output Intake/Output: Intake & Output 12/06/23 12/07/23 12/08/23 12/09/23 23:59 23:59 23:59 23:59 Intake Total 760 1400 1535 850 Output Total 500 2700 950 600 Balance 260 -1300 585 250 Meds/Results Medications: Active Medications Generic Name Dose Route Start Last Admin Trade Name Freq PRN Reason Stop Dose Admin Acetaminophen 650 mg 12/06/23 12:46 A
[2023-12-09] MEDS: ENOXAPARIN 40 MG/0.4 ML SYRINGE SUB-Q (09:11)
[2023-12-09] MEDS: AZITHROMYCIN 250 MG TABLET 500 MG PO (09:11)
[2023-12-09] MEDS: SPIRONOLACTONE 25 MG TABLET PO (09:11)
[2023-12-09] MEDS: carvediloL 3.125 MG TABLET PO (09:11)
[2023-12-09] MEDS: LORATADINE 10 MG TABLET PO (09:12)
[2023-12-09] MEDS: SACUBITRIL/VALSARTAN 24-26 MG TABLET 1 TAB PO ×2 (09:12→20:42)
[2023-12-09] MEDS: guaiFENesin 12 HR 600 MG TABCR 1200 MG PO ×2 (09:13→20:42)
[2023-12-09] MEDS: FLUTICASONE PROPIONATE 0.05% NA SPR 16 GM BTL (*BKC) 1 SPRAY NASAL ×2 (09:13→20:43)
[2023-12-09] MEDS: ATORVASTATIN 40 MG TABLET PO (09:13)
[2023-12-09] MEDS: FUROSEMIDE 40 MG TABLET PO (09:13)
[2023-12-09] MEDS: SERTRALINE HCL 50 MG TABLET PO (09:14)
[2023-12-09] MEDS: POTASSIUM CHLORIDE 20 MEQ ER TABLET PO (09:14)
[2023-12-09] MEDS: ALPRAZolam (*CRX) 0.5 MG TABLET PO (12:15)
--- NOTE | 2023-12-09 18:20 | PC.NURSE ---
Suman Brown, WAREHOUSE FORKLIFT OPERATOR/Hospitalist, notified of patient's blood pressue of 92/53. No new orders at this time.
[2023-12-09 19:09] LABS: NT Pro B Type Natriuretic Pept 926 pg/mL (0-450)
[2023-12-09] MEDS: TAMSULOSIN HCL 0.4 MG CAPSULE 0.8 MG PO (20:42)
[2023-12-10] VITALS: BP 120/51; PULSE 71; RESP 17; TEMP 36.6; O2SAT 97
[2023-12-10] MEDS: ALPRAZolam (*CRX) 0.5 MG TABLET PO ×2 (00:15→09:37)
[2023-12-10 05:25] LABS: Basophils Absolute Auto 0.02 K/mm3 (0.00-0.10); Basophils Percent Auto 0.1 % (0.0-1.0); Eosinophils Absolute Auto 0.02 K/mm3 (0.02-0.50); Eosinophils Percent Auto 0.1 % (1.0-6.0); Hematocrit 38.6 % (37.0-46.0); Hemoglobin 12.7 g/dL (12.4-15.3); Immature Granulocyte Absolute 0.23 K/mm3 (0.00-0.00); Immature Granulocyte Percent A 1.3 % (0.0-0.0); Lymphocytes Absolute Auto 1.09 K/mm3 (1.10-4.50); Lymphocytes Percent Auto 6.1 % (18.0-42.0); Mean Corpuscular HGB Conc 32.9 g/dL (32-36); Mean Corpuscular Hemoglobin 31.4 pg (27.0-31.0); Mean Corpuscular Volume 95.3 fL (78.0-102.0); Mean Platelet Volume 10.1 fl (8.7-11.0); Monocytes Absolute Auto 0.72 K/mm3 (0.10-0.90); Neutrophils Absolute Auto 15.84 K/mm3 (1.70-7.20); Neutrophils Percent Auto 88.4 % (50.0-70.0); Platelet Count Result 278 K/mm3 (150-420); Red Blood Count 4.05 M/mm3 (4.70-6.10); Red Cell Distribution Width 12.7 % (11.6-14.4); White Blood Count 17.9 K/mm3 (4.8-10.8)
[2023-12-10 05:35] VITALS: PULSE 67; RESP 16; O2SAT 98
[2023-12-10] MEDS: IPRATROPIUM 0.5 MG/ALBUTEROL SULFATE 2.5 MG AMPUL.NEB 3 ML INHALATION (05:36)
[2023-12-10] MEDS: methylPREDNISolone SOD SUCC 40 MG VIAL IV PUSH (05:41)
[2023-12-10 05:47] VITALS: PULSE 72; RESP 16; O2SAT 99
[2023-12-10 05:50] LABS: Alanine Aminotransferase 18 U/L (16-63); Albumin Level 2.9 g/dL (3.4-5.0); Alkaline Phosphatase 85 U/L (46-116); Aspartate Amino Transferase 13 U/L (15-37); Bilirubin,Total 0.4 mg/dL (0.00-1.00); Blood Urea Nitrogen 37 mg/dL (7-18); Calcium 8.9 mg/dL (8.5-10.1); Estimated CRCL calculation 54 ml/min; Estimated Glomerular Filt Rate > 60; Glucose 129 mg/dL (70-99); Magnesium 2.1 mg/dL (1.8-2.4); Total Protein 5.8 g/dL (6.4-8.2)
[2023-12-10 06:20] LABS: Chloride 99 mmol/L (98-108); Osmolality Calculated 290 mOsm/kg (285-295); Potassium 4.5 mmol/L (3.5-5.1); Sodium 135 mmol/L (136-145)
[2023-12-10 07:32] LABS: Anion Gap 12 mmol/L (4-12); Carbon Dioxide 24 mmol/L (21-32)
--- NOTE | 2023-12-10 07:33 | PM.DS ---
DS: Admitting Diagnosis Discharge Date 12/10/2023 Admitting Diagnosis CopD exacerbation , Weakness, DS: Summary Hospital Course Reason for hospitalization: COPD exacerbation Hospital Course: This is a 83 year old male that comes into the hospital with shortness of breath, who has had a exacerbation 3 days prior to arrival . Patient is on 3l of oxygen at home and is requiring 4l of oxygen while here. He was started on IV steroids as well as breathing treatments around the clock. Patient while inpatient was on IV antibioitics while inpatient. Patient chest xray at this time did not show indication of Pneumonia. Patient has continued to improve and currently is on his home dose of of 3l oxygen nasal cannula . Patient WBC were elevated on arrival and has continue to trend down slowly more than likely slower than ususal due to steroid use. Patient will follow up with his PCP and Pulmonary provider. Patient is able to eat and drink without difficulties and vitals have remained stable and he is at his baseline at this time. Patient has been transisiton to oral antibioitics. Status at Discharge Functional status at discharge: bed bound Time Spent with Patient Time attestation: Total time spent providing and/or coordinating discharge services: Exam Narrative: General: chronically ill appearing, muscle wasting, appears stated age. HEENT: normocephalic, atraumatic. Mucous membranes moist. EOMI, PERRLA, bilateral sclera anicteric, no conjunctival injection. Neck supple without JVD, lymphadenopathy, or bruit. Respiratory: diminished to auscultation bilaterally. No rales/rhonic/ slight wheezes. Cardiovascular: Regular rate and rhythm, No murmurs, rubs, or clicks. PMI is nondisplaced, capillary refill less than 3 second. Abdomen: Soft, round, no pulsatile masses, nondistended and nontender. No rebound, no guarding. No CVA tenderness, Bowel sounds present to all four quadrants. Extremities: No cyanosis, clubbing, or edema present. Pulses are palpable 2/2. Active ROM to all four extremities. Neuro: Alert and orientated x 4. PERRLA. Cranial nerves 2-12 intact without focal deficit. Skin: Warm, dry, and intact, without rash, erythema, or lesion. Psych: pleasant, cooperative, normal speech, normal affect, no hallucinations, no dysarthria DS: Data Data Completed and Pending Labs on day of discharge: Labs from last 24 hours 12/10/23 12/09/23 05:12 04:59 WBC 17.9 H RBC 4.05 L Hgb 12.7 Hct 38.6 MCV 95.3 MCH 31.4 H MCHC 32.9 RDW 12.7 Plt Count 278 MPV 10.1 Immature Gran % (Auto) 1.3 H Neut % (Auto) 88.4 H Lymph % (Auto) 6.1 L [place] % (Auto) 4.0 Eos % (Auto) 0.1 L Baso % (Auto) 0.1 Lymph # (Auto) 1.09 L [place] # (Auto) 0.72 Eos # (Auto) 0.02 Baso # (Auto) 0.02 Abs Immat Gran (auto) 0.23 H Absolute Neuts (auto) 15.84 H Absolute Nucleated RBC 0.00 Nucleated RBC % 0.0 Sodium 135 L Potassium 4.5 Chloride 99 Carbon Dioxide 24 Anion Gap 12 BUN 37 H Creatinine 0.87 Estim Creat Clear Calc 54 Estimated GFR > 60 Glucose 129 H Calculated Osmolality 290 Calcium 8.9 Magnesium 2.1 Total Bilirubin 0.4 AST 13 L ALT 18 Alkaline Phosphatase 85 NT-Pro-B Natriuret Pep 926 H Total Protein 5.8 L Albumin 2.9 L Discharge Plan Discharge Attending physician on discharge: Nuno Matos Consulting providers: Madie Brown; Suzy Pena; Federico Guan V.; Jayjay Alaniz Discharging Clinician: Madie Brown Anticipated Discharge Date/Time: 12/10/23 07:20 Patient Disposition: Home, Self-Care Activity: may shower and unlimited Diet: heart healthy Wound Care Instructions: follow printed instructions Discharge Instructions: continue to use oxygen as indicated Take antibiotics and steroids as directed Follow up with your primary care provider and digital media representative Patient Instructions: Antibiotic Form, Spironolact
[2023-12-10 08:00] VITALS: BP 110/60; PULSE 68; RESP 16; TEMP 36.6; O2SAT 98
[2023-12-10] MEDS: AZITHROMYCIN 250 MG TABLET 500 MG PO (09:36)
[2023-12-10] MEDS: ENOXAPARIN 40 MG/0.4 ML SYRINGE SUB-Q (09:36)
[2023-12-10] MEDS: predniSONE 20 MG TABLET 40 MG PO (09:36)
[2023-12-10] MEDS: SACUBITRIL/VALSARTAN 24-26 MG TABLET 1 TAB PO (09:36)
[2023-12-10 09:37] VITALS: PULSE 65
[2023-12-10] MEDS: carvediloL 3.125 MG TABLET PO (09:37)
[2023-12-10] MEDS: SERTRALINE HCL 50 MG TABLET PO (09:37)
[2023-12-10] MEDS: LORATADINE 10 MG TABLET PO (09:37)
[2023-12-10] MEDS: FUROSEMIDE 40 MG TABLET PO (09:38)
[2023-12-10] MEDS: guaiFENesin 12 HR 600 MG TABCR 1200 MG PO (09:38)
[2023-12-10] MEDS: ATORVASTATIN 40 MG TABLET PO (09:38)
[2023-12-10] MEDS: FLUTICASONE PROPIONATE 0.05% NA SPR 16 GM BTL (*BKC) 1 SPRAY NASAL (09:39)
--- NOTE | 2023-12-10 10:45 | PC.NURSE ---
Patient refusing IV antibiotic at this time, is charging to home, will continue oral antibiotics at home, is to take a dose today. continue home inhalers, add robitussin syrup as needed and decrease spironolactone to 12.5mg daily
[2023-12-10 11:30] VITALS: O2SAT 98
--- NOTE | 2023-12-10 12:08 | PC.NURSE ---
Pt discharged to home and self care. Discharge instructions given to pt regarding medications, fall precautions, follow up appointments. S&S of worsening COPD % CHF and when to call the doctor or come to the ER. pt verbalized understanding of all instructions. Pt taken by WC to family car.
--- NOTE | 2023-12-11 09:22 | PC.NURSE ---
Spoke with patient during dc call back, did receive instructions, did have some left over prednisone, wanted to know if he should take in addition to new script, advised to not take old script, to just take the new script, doing well otherwise
== END 2023-12-10 11:20 | disposition home or self-care (01) | DRG 190 ==
LOC: CHSED 12:48 → CHS2ND 12:52
PROVIDERS: Nurse Practitioner Family; Admitting Provider Internal Medicine; Emergency Provider Internal Medicine Critical Care Medicine; Visit Provider Nurse Practitioner Acute Care
DX: J44.1 Chronic obstructive pulmonary disease with (acute) exacerbation (principal); I50.43 Acute on chronic combined systolic (congestive) and diastolic (congestive) heart failure; J96.11 Chronic respiratory failure with hypoxia; I25.10 Atherosclerotic heart disease of native coronary artery without angina pectoris; I25.5 Ischemic cardiomyopathy; I35.1 Nonrheumatic aortic (valve) insufficiency; I34.0 Nonrheumatic mitral (valve) insufficiency; N40.0 Benign prostatic hyperplasia without lower urinary tract symptoms; M19.90 Unspecified osteoarthritis, unspecified site; F32.A Depression, unspecified; F43.10 Post-traumatic stress disorder, unspecified; F41.9 Anxiety disorder, unspecified; I25.2 Old myocardial infarction; Z95.810 Presence of automatic (implantable) cardiac defibrillator; Z95.5 Presence of coronary angioplasty implant and graft; Z99.81 Dependence on supplemental oxygen; Z89.011 Acquired absence of right thumb; Z89.021 Acquired absence of right finger(s); Z86.73 Personal history of transient ischemic attack (TIA), and cerebral infarction without residual deficits; Z79.82 Long term (current) use of aspirin
CPT/HCPCS: 36415; 36600; 71045; 71046; 80048; 80053; 82805; 83605; 83690; 83735; 83880; 84484; 85025; 85027; 85380; 85610; 85730; 87637; 94640; 96365; 96366; 96374; 96375; 96376; 97161; 97165; 97530; 97535; 99284; 99285; A9270; G0378; J0696; J1200; J1650; J1940; J2470; J2543; J2919; J7512

== ENCOUNTER 2025-03-29 11:50 | Inpatient (IN) | payer MEDICARE, OTHER, SELFPAY ==
[2025-03-29] VITALS (16 sets, daily range): BP systolic 102–126; BP diastolic 54–84; PULSE 68–100; RESP 15–22; TEMP 36.1–36.4; O2SAT 94–100; BMI 20.6
--- NOTE | ~2025-03-29 | XR_ITS ---
EXAMINATION: XR chest 1V portable COMPARISON: No comparisons available. HISTORY: shortness of breath FINDINGS: The lungs are clear, no effusion. No pneumothorax. Heart is normal size. Mediastinal and hilar contours are within normal limits. Bony thorax no acute abnormality. Miscellaneous: Left pacemaker. Impression: No acute cardiopulmonary abnormality. Reviewed, dictated and finalized at location [facility] Impression: No acute cardiopulmonary abnormality.
--- NOTE | ~2025-03-29 | CT_ITS ---
EXAMINATION: CT abdomen pelvis w con DATE: 03/29/2025 13:43 INDICATION: History of rectal bleeding. 84-year-old male. TECHNIQUE: Computed tomography (CT) of the abdomen and pelvis was performed 100 cc intravenous contrast. Automated exposure control and iterative reconstruction technique were employed. The images were obtained in arterial phase. The dose- length product was 284.58 mGy-cm. COMPARISON: None. FINDINGS: Lung bases do not show acute findings. Pacemaker device is noted in the heart. Pericardial effusion is noted with fluid measuring 8 to 10 mm in width. No focal lesions of liver and spleen other than small cysts. Gallbladder, pancreas and kidneys do not show acute findings. Small nonobstructing calculi of both kidneys. Severe calcific atherosclerotic changes of proximal superior mesenteric artery and proximal renal arteries. Infrarenal abdominal aortic aneurysm measures AP diameter of the 31 millimeters at L3-4 level. No evidence of contrast extravasation within the GI tract. Diverticulosis of the descending and sigmoid colon. No inflammatory changes in the pelvis. IMPRESSION: 1. No evidence of active extravasation of arterial phase contrast within the GI tract. Diverticulosis of distal colon. 2. Mild aneurysm of abdominal aorta measuring 31 mm at L3-4 level. 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 3. Nonobstructing renal calculi. 4. Pericardial effusion. Reviewed, dictated and finalized at location T. DESIGNER
--- NOTE | 2025-03-29 11:57 | ECG_ITS ---
Test Date: 2025-03-29 11:58:07 Measurements Intervals [place] Rate: 97 P: 89 IA: 158 QRS: 74 QRSD: 98 T: 78 QT: 336 QTc: 428 Interpretive Statements SINUS RHYTHM WITH OCCASIONAL VENTRICULAR PREMATURE COMPLEXES WITH OCCASIONAL SUPRAVENTRICULAR PREMATURE COMPLEXES PREVIOUS ANTEROSEPTAL HI NONSPECIFIC T-WAVE ABNORMALITY ABNORMAL ECG Compared to ECG 12/01/2023 12:25:39 No significant changes Electronically Signed On 03-29-2025 17:31:42 THERMODYNAMIC PHYSICIST by Joss Stewart M.D.
--- NOTE | 2025-03-29 12:10 | ECG_ITS ---
Test Date: 2025-03-29 12:05:06 Measurements Intervals [place] Rate: 89 P: 83 [place]: 159 QRS: 67 QRSD: 98 T: 124 QT: 318 QTc: 389 Interpretive Statements SINUS RHYTHM WITH FREQUENT VENTRICULAR PREMATURE COMPLEXES PREVIOUS ANTERIOR INFARCTION NONSPECIFIC T-WAVE ABNORMALITY ABNORMAL ECG Compared to ECG 03/29/2025 11:58:07 No significant changes Electronically Signed On 03-29-2025 17:32:19 BUSINESS SALES CONSULTANT by Joss Stewart M.D.
[2025-03-29 12:17] LABS: Hematocrit 43.0 % (42.0-52.0); Hemoglobin 13.8 g/dL (14.0-18.0); Immature Granulocyte Percent A 0.9 % (0-0.5); Lymphocytes Absolute Auto 2.47 K/mm3 (0.9-3.2); Mean Corpuscular HGB Conc 32.1 g/dl (32-36); Mean Corpuscular Hemoglobin 31.2 pg (26-34); Mean Corpuscular Volume 97.3 fl (80-100); Nucleated Red Blood Cells Absolute Auto 0.000 K/mm3 (0.0-0.012); Nucleated Red Blood Cells Perc 0.0 % (0.0-0.2); Platelet Count Result 308 k/mm3 (150-375); Red Blood Count 4.42 M/mm3 (4.6-6.20); White Blood Count 12.1 K/mm3 (4.5-10.0)
[2025-03-29] MEDS: SODIUM CHLORIDE 0.9% IV 1,000 ML 999 ML IV CONT (12:30)
[2025-03-29 12:40] LABS: INR 0.9; Prothrombin Time 12.5 Seconds (11.1-14.7)
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
[2025-03-29 12:41] LABS: Partial Thromboplastin Time 25.0 Seconds (22.3-36.8)
[2025-03-29 12:48] LABS: Alanine Aminotransferase 21 U/L (6-50); Albumin Level 3.9 g/dL (3.5-5.1); Alkaline Phosphatase 74 U/L (38-126); Anion Gap 4 mmol/L (4-12); Aspartate Amino Transferase 35 U/L (17-59); Bilirubin,Total 1.1 mg/dL (0.2-1.3); Blood Urea Nitrogen 26 mg/dL (9-20); Calcium 9.6 mg/dL (8.4-10.2); Carbon Dioxide 39 mmol/L (22-30); Chloride 93 mmol/L (98-107); Estimated CRCL calculation 53 ml/min; Estimated Glomerular Filt Rate > 60; Glucose 105 mg/dL (65-110); Lipase 44 U/L (23-300); Magnesium 2.2 mg/dL (1.6-2.3); Potassium 4.0 mmol/L (3.4-5.0); Sodium 136 mmol/L (137-145); Total Protein 6.9 g/dL (6.3-8.2)
[2025-03-29] MEDS: IPRATROPIUM 0.5 MG/ALBUTEROL SULFATE 2.5 MG (BASE) AMPUL.NEB 3 ML INHALATION ×2 (12:50→20:01)
[2025-03-29 12:54] LABS: NT Pro B Type Natriuretic Pept 1090 pg/mL (19.9-100); Troponin I 0.025 ng/mL (0.000-0.034)
[2025-03-29 13:00] LABS: Alveolar/Arterial O2 Gradient 43.4 mmHg; Fractional Inspired Oxygen 32 %; HCO3 ABG 33.1 mEq/l (22.0-26.0); Oxygen Content ABG 17.1 %vol (16.0-22.0); Oxygen Saturation ABG 98.5 % (95.0-100.0); PCO2 ABG 51.4 mmHg (35.0-45.0); PO2 ABG 124.6 mmHg (80.0-100.0); PO2 FiO2 Ratio Arterial Blood 3.89 %
[2025-03-29 13:01] LABS: Liters per Minute 3.0 LPM; Modified Allen's Test Pass; Site Drawn LEFT RADIAL
--- OUTSIDE RECORDS SUMMARY | 2025-03-29 13:49 | XMS_ITS | Clinical Summary ---
Author Organization [facility] Address [address] [place] [address] Phone Care Team Providers Care Production Control Manager Name Role Phone Percy Michaels MD Primary Care Provider [phone] Social History Tobacco Use Types Packs/Day Years Used Date Smoking Tobacco: Never Assessed Sex and Gender Information Value Date Recorded Sex Assigned at Not on file Legal Sex Male 10:51 AM CDT Gender Identity Not on file Sexual Orientation Not on file Plan of Treatment Health Maintenance Due Date Last Done Comments Hepatitis C Virus (HCV) Screening 1940 TdaP Immunization 1940 Pneumococcal Immunization (5 0+ years) (1 of 1 - PCV) 1991 Zoster Immunization (1 of 2) 1991 Medicare Initial AWV [id number] 03/05/2007 Respiratory Syncytial Virus (RSV) Immunization (Adult) (1 - 1-dose 75+ series) 2016 Influenza Immunization (#1) 2025 SARS-COV-2 Immunization (2024- season) 2025 04/09/2021, 08/18/2020, 07/21/2020 Hepatitis B Immunization Aged Out No longer eligible based on patient's age to complete this topic Human Papillomavirus (HPV) Immunization Aged Out No longer eligible b ased on patient's age to complete this topic Meningococcal Immunization (ACWY) Aged Out No longer eligible b ased on patient's age to complete this topic Rotavirus Immunization Aged Out No lo nger eligible based on patient's age to complete this topic Insurance MEDICARE Care Teams Production Control Manager Relationship Specialty Start Date End Date Percy Michaels MD [address] [place] [id number] PCP - General Endocrinology 11/24/19
--- OUTSIDE RECORDS SUMMARY | 2025-03-29 13:49 | XMS_ITS | Clinical Summary ---
Author Organization [facility] Address [address] [place] [address] Phone Care Team Providers Care Quality Lead Name Role Phone Unavailable Primary Care Provider Unavailabl e Allergies Active Allergy Reactions Criticality Noted Date Comments Doxycycline Hcl Unknown 06/26/2024 Latex Unknown 06/26/2024 Penicillins Unknown 06/26/2024 Medications ALPRAZolam (XANAX) 0.25 mg tablet Take 0.25 mg by mouth 1 time daily as needed for Anxiety. Active aspirin (ECOTRIN EC) 81 mg Tablet, Delayed Release (E.C.) Take 81 mg by mouth daily. Active carvediloL (COREG) 3.125 mg tablet Take 3.125 mg by mouth 2 times daily with meals. Active ipratropium-alb uteroL (Combivent Respimat) 20-100 mcg/actuation Mist Take 1 Puff by inhalation every 6 hours. Active famotidine (PEPCID) 20 mg tablet Take 20 mg by mouth 2 times daily. Active finasteride (PROSCAR) 5 mg tablet Take 5 mg by mouth daily. Active furosemide (LASIX) 40 mg tablet Take 40 mg by mouth daily. Active montelukast (SINGULAIR) 10 mg tablet Take 10 mg by mouth daily at bedtime. Active sertraline (ZOLOFT) 50 mg tablet Take 50 mg by mouth daily. Active tamsulosin (FLOMAX) 0.4 mg capsule Take 0.8 mg by mouth daily. Active ferrous sulfate 325 mg (65 mg iron) tablet Starting 07/07 Take 1 Tablet (325 mg) by mouth daily. 30 Tablet 07/07/2024 12:27 PM [employer] Active Active Problems Problem Noted Date Diagnosed Date Acute blood loss anemia 06/26/2024 Acute lower GI bleeding 06/26/2024 COPD (chronic obstructive pulmonary disease) Coronary artery disease invo lving squaxin coronary artery of squaxin heart without angina pectoris 06/26/2024 Primary hypertension 06/26/2024 Hx of ventricular tachycardia 06/26/2024 AICD (automatic cardioverter/defibrillator) pres ent 06/26/2024 Chronic respiratory failure with hypoxia 025 C. difficile colitis 06/26/2024 Encounters Date Type Department Care Team Description 03/22/2025 External Device Data [facility] ABSTRACTION Provider, Abstract 02/08/2025 External Device Data [facility] ABSTRACTION Provider, Abstract 01/18/2025 External Device Data [facility] ABSTRACTION Provider, Abstract from Last 3 Months Family History Medical History Relation Name Comments No Known Problems Father Relation Name Status Comments Father Social History Tobacco Use Types Packs/Day Years Used Date Smoking Tobacco: Former Cigarettes 1 67 1 832 - 2019 Alcohol Use Standard Drinks/Week Comments Not Currently 0 (1 standard drink = 0.6 oz pur e alcohol) Feeling Safe Answer Date Recorded Are you in a relationship wi th someone who hurts you emotionally and/or physically? No 06/26/2024 Food Insecurity Answer Date Recorded Patient needs follow up regardin 08/25/2024 Transportation Needs Answer Date Record ed Patient needs follow up regardin 08/25/2024 Housing Stability Answer Date Recorded Social/Environmental Concerns No concerns Utility Needs Answer Date Recorded Patient needs follow up regardin 08/25/2024 Sex and Gender Information Value Date Recorded Sex Assigned at Not on file Legal Sex Male 11:07 PM [employer] Gender Identity Not on file Sexual Orientation Not on file Last Filed Vital Signs Vital Sign Reading Time Taken Comments Blood Pressure 113/45 07/07/2024 6:10 AM [employer] Pulse 72 07/07/2024 8:23 AM [employer] Temperature 37.1 C (98.7 F) 07/07/2024 4:57 AM [employer] Respiratory Rate 18 07/07/2024 8:23 AM [employer] Oxygen Saturation 98% 07/07/2024 8:23 AM [employer] Inhaled Oxygen Concentration - - Weight 69.1 kg (152 lb 4.8 oz) 06/26/2024 2:09 A M [employer] Height 180.3 cm (5' 11) 06/26/2024 2:09 AM [employer] Body Mass Index 21.24 06/26/2024 2:09 AM [employer] Plan of Treatment Health Maintenance Due Date Last Done Comments DTAP/TDAP/TD VACCINES (1 - Tdap) 1960 ZOSTER VACCINE (1 of 2) 1991 RSV VACCINE (60+ or ) (1 - 1-dose 75+ series) 2016 INFLUENZA VACCINE (#1) 2024 2, 02/07/2021, 12/28/2019, Additional history exists COVID-19 Vaccine (2024-2 6 season) 2025 05/16/2022, 04/09/2021, 08/18/2020, Additional history exists PNEUMOCOCCAL VACCINE 50+ YEARS Completed 0 01/28/2017, 02/08/2015, 08/25/2014, Additional history exists Insurance MEDICARE PART A AND B [employer] [employer] (INTERNAL) [facility] Advance Directives For more information, please contact: [phone] * NO CPR (In Event of Cardiopulmonary Arrest) (Latest Code Status on File) Date Activated Date Inactivated Comments 06/26/2024 2:37 AM 07/07/2024 2:53 PM Question Answer Comments Mechanical Ventilation (for respiratory distress) - Invasive (i.e. intubation): No Mechanical Ventilation (for respiratory distress) - Non-Invasive (i.e. BiPAP, CPAP): Yes
[2025-03-29] MEDS: PANTOPRAZOLE SODIUM IV 40 MG VIAL IV PUSH (14:53)
--- NOTE | 2025-03-29 14:56 | WPCEDHO ---
ED Hand Off Checklist All vitals saved:y IV Site documented:y All med administrations documented:y Triage Note Triage Note Pt to the ED for evaluation of 03/29/25 11:50 increased shortness of breath and bright red rectal bleeding x 1 since this morning. Pt has hx of COPD and GI bleeds. Pt wears 3L of O2 via NC at all times. Pt does take blood thinners. Pt denies dizziness or lightheadedness. Allergies tramadol Allergy (Intermediate, Verified 03/29/25 11:57) Hives amoxicillin Allergy (Mild, Verified 03/29/25 11:57) Rash doxycycline Allergy (Mild, Verified 03/29/25 11:57) Rash latex Allergy (Mild, Verified 03/29/25 11:57) Rash Family History (Last Reviewed 03/29/25 @ 12:41 by Nuno Blanton MD) Other Unknown family medical history Active Medications including assessments/comments Pantoprazole Sodium (Pantoprazole Sodium Iv 40 Mg Vial) 40 mg IV PUSH QAM [facility] Last Admin: 03/29/25 14:53 Dose: 40 mg Documented By: JUAN JOSE Administered/Completed Medications Discontinued Medications Albuterol/Ipratropium (Ipratropium 0.5 Mg/Albuterol Sulfate 2.5 Mg (Base) Ampul.Neb 3 Ml) 3 ml INHALATION ONCE STA Stop: 03/29/25 12:19 Last Admin: 03/29/25 12:50 Dose: 3 ml Documented By: PADMINI Sodium Chloride (Normal Saline Iv) 1,000 mls @ 999 mls/hr IV CONT .Q1H1M STA Stop: 03/29/25 13:25 Last Infusion: 03/29/25 13:23 Dose: Infused Documented By: JUAN JOSE Admin: 03/29/25 12:30 Dose: 999 mls/hr Documented By: JUAN JOSE Interventions/Assessments Cardiac Monitoring Start: 03/29/25 11:49 Freq: Status: Active Protocol: Document 03/29/25 12:11 JUAN JOSE (Rec: 03/29/25 12:13 JUAN JOSE [id number]) Distributor Sales Manager Assessment Distributor Sales Manager Yes Applied Pulse Rate (60-100) 94 EKG Rythm Sinus Rhythm IV / Saline Lock, Insert Start: 03/29/25 11:57 Freq: STAT Status: Active Protocol: Document 03/29/25 12:11 ELB (Rec: 03/29/25 12:13 ELB [id number]) IV Assessment Peripheral Access Right Forearm IV Catheter Access Initiated IV Insertion Date 03/29/25 IV Insertion Time 12:11 Catheter Gauge 20 IV Insertion 2 Attempts Ultrasound Used for No Placement IV Site Assessment WNL IV Care and WNL Maintenance Peripheral Access Left Hand IV Catheter Access Initiated Before Arrival Catheter Gauge 22 IV Site Assessment WNL IV Care and WNL Maintenance PA: Cardiovascular Assessment Start: 03/29/25 11:49 Freq: Status: Active Protocol: Document 03/29/25 12:11 ELB (Rec: 03/29/25 12:13 ELB [id number]) Cardiovascular Assessment Cardiovascular Dyspnea Symptoms Skin Description Normal Color Heart Sounds Normal Jugular Vein None Distention Rhythm/Strength Monitor EKG Rythm Sinus Rhythm Chest Pain Assessment Description and Dyspnea Symptoms PA: Respiratory Assessment Start: 03/29/25 11:49 Freq: Status: Active Protocol: Document 03/29/25 12:11 ELB (Rec: 03/29/25 12:13 ELB [id number]) Respiratory Assessment Symptoms None Effort Abdominal Breathing Pattern Tachypnea Depth Shallow Throughout Phase Inspiratory & Expiratory Lung Sounds Clear Cough Description None Oxygen Delivery Oxygen Delivery Nasal Cannula Oxygen Flow Rate 3 Pulse Oximetry (90- 97 100) Last Vital Signs Temperature 97.6 F 03/29/25 11:50 Pulse Rate 79 03/29/25 14:45 Respiratory Rate 16 03/29/25 14:45 Pulse Oximetry 96 03/29/25 14:45 Blood Pressure 103/62 03/29/25 14:45 Blood Pressure Mean 75 03/29/25 14:45 Oxygen Delivery Nasal Cannula 03/29/25 12:11 Oxygen Flow Rate 3 03/29/25 12:11 Weight 68.2 kg 03/29/25 11:50 Last Result - Abnormals Only WBC 12.1 K/mm3 (4.5-10.0) H 03/29/25 12:06 RBC 4.42 M/mm3 (4.6-6.20) L 03/29/25 12:06 Hgb 13.8 g/dL (14.0-18.0) L D 03/29/25 12:06 Immature Gran % (Auto) 0.9 % (0-0.5) H 03/29/25 12:06 [place] # (Auto) 0.8 K/mm3 (0.1-0.6) H 03/29/25 12:06 Abs Immat Gran (auto) 0.11 K/mm3 (0.00-0.031) H 03/29/25 12:06 Absolute Neuts (auto) 8.5 K/mm3 (1.3-6.7) H 03/29/25 12:06 ABG pCO2 51.4 mmHg (35.0-45.0) H 03/29/25 12:45 ABG pO2 124.6 mmHg (80.0-100.0) H 03/29/25 12:45 ABG HCO3 33.1 mEq/l (22.0-26.0) H 03/29/25 12:45 Sodium 136 mmol/L (137-145) L 03/29/25 12:06 Chloride 93 mmol/L (98-107) L 03/29/25 12:06 Carbon Dioxide 39 mmol/L (22-30) H 03/29/25 12:06 BUN 26 mg/dL (9-20) H D 03/29/25 12:06 NT-Pro-B Natriuret Pep 1090 pg/mL (19.9-100) H 03/29/25 12:06 Most Recent Suicide Severity Rating Suicide Severity Rating NO RISK INDICATED 03/29/25 11:50
--- NOTE | 2025-03-29 15:55 | ADMGEN ---
This patient, Chip Emery, was admitted to Medical Room 244-. Patient/family oriented to hospital policies and general routines including ID bracelet, bed and alarms, visiting hours, pain management, procedures, bathroom and other care routines, personal items, smoking policy, room service/diet, and visiting hours. Information on how to activate the Rapid Response Team has been discussed. Patient/Family are encouraged to report perceived risks to care and to ask questions if they do not understand what they are told or what they should do.
[2025-03-29 16:43] LABS: Hematocrit 34.4 % (42.0-52.0); Hemoglobin 11.3 g/dL (14.0-18.0)
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
[2025-03-29 17:10] LABS: Troponin I 0.018 ng/mL (0.000-0.034)
[2025-03-29] MEDS: FLUTICASONE/SALMETEROL 115-21 MCG INHALER 1 PUFF 2 PUFF INHALATION (20:02)
[2025-03-29 20:17] LABS: Hematocrit 38.6 % (42.0-52.0); Hemoglobin 12.5 g/dL (14.0-18.0)
[2025-03-29] MEDS: FAMOTIDINE 20 MG TABLET PO (20:36)
[2025-03-29] MEDS: TAMSULOSIN HCL 0.4 MG CAPSULE PO (20:36)
[2025-03-29] MEDS: ALPRAZolam (*CRX) 0.25 MG TABLET PO (20:36)
[2025-03-30] VITALS (19 sets, daily range): BP systolic 104–131; BP diastolic 40–55; PULSE 63–106; RESP 18–20; TEMP 36.2–36.6; O2SAT 93–100
[2025-03-30 02:32] LABS: Hematocrit 33.1 % (42.0-52.0); Hemoglobin 10.6 g/dL (14.0-18.0)
[2025-03-30 06:46] LABS: Hematocrit 32.3 % (42.0-52.0); Hemoglobin 10.5 g/dL (14.0-18.0)
--- NOTE | 2025-03-30 08:06 | PM.IMPN ---
Progress Note: A&P Assessment and Plan (1) GI bleed: Qualifiers: GI bleed type/associated pathology: unspecified gastrointestinal hemorrhage type Qualified Code(s): K92.2 - Gastrointestinal hemorrhage, unspecified Code(s): K92.2 - Gastrointestinal hemorrhage, unspecified Status: Acute Assessment and Plan: Patient presents with what he states is his 7th episode of GI bleed. Blood is bright red per rectum. No associated abdominal pain. Most recent GI note states the patient has extensive diverticular disease. EGD on 10/17/2020 found gastritis and EGD that same day found diverticulosis with probable recent diverticular bleed from left colon. - Hgb stable on admit at 13.8 - [place] was positive for bright red blood - holding aspirin - CT abd/pelvis Abdomen pelvis CT with no evidence of acute extravasation of arterial phase contrast within the GI tract. Diverticulosis of distal colon. Mild AAA. 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 Nonobstructing renal calculi. Pericardial effusion. - GI consulted, awaiting recs - trend H&H q.6 hours - continue pantoprazole - monitor hemodynamic stability and telemetry - NPO with ice chips (2) COPD (chronic obstructive pulmonary disease): Qualifiers: COPD type: chronic bronchitis Chronic bronchitis type: simple Qualified Code(s): J41.0 - Simple chronic bronchitis Code(s): J44.9 - Chronic obstructive pulmonary disease, unspecified Status: Chronic Assessment and Plan: Patient with multiple hospital admissions for COPD exacerbations. On 3 L O2 at home. Chest x-ray with no acute cardiopulmonary abnormalities. Not in acute exacerbation. - DuoNebs Q6H terrence, Advair Q 12H, guaifenesin Q 4 - home medications: Pulmicort, formoterol, DuoNeb, Combivent, guaifenesin (3) Depression with anxiety: Code(s): F41.8 - Other specified anxiety disorders Status: Chronic Assessment and Plan: Continue sertraline, Xanax HS (4) CHF (congestive heart failure): Code(s): I50.9 - Heart failure, unspecified Status: Chronic Assessment and Plan: - BNP 1090 - most recent echo from 09/01/2023 demonstrates EF 20-25, LV grade 1 diastolic dysfunction - currently on: Carvedilol, 40 mg furosemide, sublingual nitro p.r.n. - monitor I&Os - trend renal function (5) BPH (benign prostatic hyperplasia): Code(s): N40.0 - Benign prostatic hyperplasia without lower urinary tract symptoms Status: Chronic Assessment and Plan: Continue tamsulosin, finasteride Plan Diet: NPO with ice chips GI prophylaxis: NA DVT prophylaxis: SCDs lines/drains: PIV Fluids: 75ml/hr LR Code status: Director Of Estate Spent With Patient Time: 35 Subjective Date/time seen: 03/30/25 1141 Interval history: Pt resting in bed upon my arrival. C/o epigastric pain, weakness, and continued melena x2 episodes today. Denies N/V/D. Pending GI recommendation POC. Review of Systems Review of Systems: All systems reviewed & are unremarkable except as noted in HPI and below Exam Narrative: GENERAL: non-toxic appearing, in no acute distress. Chronically ill-appearing. Thin. HEAD: Normocephalic, atraumatic. EYES: PERRLA. Conjunctivae clear. NOSE: Normal no drainage. Nasal cannula in place THROAT: Pharynx clear, no exudate. NECK: Trachea midline. No adenopathy, no masses. RESPIRATORY: Airway patent, respirations nonlabored. Barrel chested. Minimal air movement bilaterally CARDIOVASCULAR: Regular rate and rhythm GASTROINTESTINAL: TTP epigastric region, hypoactive BS GENITOURINARY: Defer MUSCULOSKELETAL: Moves all extremities. No gross deformities. Generalized weakness at baseline SKIN: Warm, dry, normal color. NEURO: A&O X4. Speech clear PSYCHIATRIC: Normal interaction Objective Data Vital Signs Vital Signs: Vital Signs - 24 hr 03/29/25 11:50 03/29/25 12:11 03/29/25 12:11 Temperature 97.6 F Pulse Rate 94 94 Respiratory Rate 22 H Blood Pressure 106/63 Pulse Oximetry 97 Oxygen Delivery Nasal Cannula Oxygen Flow Rate 3 03/29/25 12:30 03/29/25 12:45 03/29/25 12:50 Temperature Pulse Rate 83 74 68 Respiratory Rate 18 21 H 17 Blood Pressure 102/84 112/60 Pulse Oximetry 100 100 Oxygen Delivery Oxygen Flow Rate 03/29/25 13:00 03/29/25 13:05 03/29/25 14:45 Temperature Pulse Rate 70 70 79 Respiratory Rate 15 20 16 Blood Pressure 126/66 103/62 Pulse Oximetry 98 96 Oxygen Delivery Oxygen Flow Rate 03/29/25 16:45 03/29/25 17:03 03/29/25 20:00 Temperature Pulse Rate 95 Respiratory Rate 16 Blood Pressure Pulse Oximetry 96 94 Oxygen Delivery Nasal Cannula Nasal Cannula Oxygen Flow Rate 3 1 03/29/25 20:00 03/29/25 20:02 03/29/25 20:18 Temperature 97.0 F L Pulse Rate 91 94 100 Respiratory Rate 20 20 Blood Pressure 124/54 L Pulse Oximetry 97 Oxygen Delivery Oxygen Flow Rate 03/29/25 20:20 03/29/25 20:22 03/29/25 20:36 Temperature Pulse Rate 91 99 Respiratory Rate 20 Blood Pressure Pulse Oximetry 100 Oxygen Delivery Nasal Cannula Oxygen Flow Rate 3 03/30/25 00:00 03/30/25 04:00 03/30/25 05:08 Temperature 97.9 F Pulse Rate 63 67 65 Respiratory Rate 20 Blood Pressure 104/40 L Pulse Oximetry 97 Oxygen Delivery Oxygen Flow Rate Intake/Output Intake/Output: Intake & Output 03/27/25 03/28/25 03/29/25 03/30/25 23:59 23:59 23:59 23:59 Intake Total 1000 Output Total 300 Balance 700 Meds/Results Medications: Active Medications Generic Name Dose Route Start Last Admin Trade Name Freq PRN Reason Stop Dose Admin Albuterol/Ipratropium 3 ml 03/29/25 20:00 03/30/25 04:41 Ipratropium 0.5 Mg/Albuterol Sulfate 2.5 Mg (Base) Ampul.Neb 3 Ml INHALATION Not Given Q6HRT TERRENCE Alprazolam 0.25 mg 03/29/25 21:00 03/29/25 20:36 Alprazolam (*Crx) 0.25 Mg Tablet PO 0.25 mg HS TERRENCE Administration Atorvastatin Calcium 40 mg 03/30/25 09:00 Atorvastatin 40 Mg Tablet PO DAILY [facility]ENCE Carvedilol 3.125 mg 03/29/25 21:00 03/29/25 20:36 Carvedilol 3.125 Mg Tablet PO 3.125 mg Q12HR TERRENCE Administration Cyanocobalamin 1,000 mcg 03/30/25 09:00 Cyanocobalamin 1,000 Mcg Tablet PO DAILY TERRENCE Famotidine 20 mg 03/29/25 21:00 03/29/25 20:36 Famotidine 20 Mg Tablet PO 20 mg Q12HR [facility] Administration Finasteride 5 mg 03/30/25 09:00 Finasteride 5 Mg Tablet PO DAILY [facility] Furosemide 40 mg 03/30/25 09:00 Furosemide 40 Mg Tablet PO BID [facility] Guaifenesin 200 mg 03/29/25 17:37 Guaifenesin 200 Mg/10 Ml Udc PO Q4H PRN Congestion Miscellaneous Information 1 each 03/29/25 00:01 03/29/25 18:48 Nonformulary Drug (Formoterol Fumarate 20 Mcg/2 Ml Solution For Nebulization) Can Patient XX 04/28/25 00:00 Not Given CLARIFY [facility] Nitroglycerin 0.4 mg 03/29/25 17:39 Nitroglycerin Sl 0.4 Mg Tablet SUBLINGUAL PRN PRN Chest Pain Non-Formulary Medication 20 mcg 03/30/25 09:00 Formoterol Fumarate INHALATION 04/29/25 08:59 BID [facility] Ondansetron HCl 4 mg 03/29/25 14:11 Ondansetron Inj 4 Mg/2 Ml Vial IV PUSH Q4H PRN Nausea Pantoprazole Sodium 40 mg 03/29/25 14:45 03/29/25 14:53 Pantoprazole Sodium Iv 40 Mg Vial IV PUSH 40 mg QAM [facility] Administration Fluticasone/Salmeterol 2 puff 03/29/25 20:00 03/29/25 20:02 Fluticasone/Salmeterol 115-21 Mcg Inhaler 1 Puff INHALATION 2 puff Q12HRT [facility] Administration Sertraline HCl 50 mg 03/30/25 09:00 Sertraline Hcl 50 Mg Tablet PO DAILY [facility] Tamsulosin HCl 0.4 mg 03/29/25 21:00 03/29/25 20:36 Tamsulosin Hcl 0.4 Mg Capsule PO 0.4 mg HS [facility] Administration Vitamin D 25 mcg 03/30/25 09:00 Cholecalciferol (Vitamin D3) 25 Mcg (1,000 Units) Tablet PO DAILY [facility] Radiology Results: ITS Impressions Abdomen/Pelvis CT 03/29/25 13:51 IMPRESSION: 1. No evidence of active extravasation of arterial phase contrast within the GI tract. Diverticulosis of distal colon. 2. Mild aneurysm of abdominal aorta measuring 31 mm at L3-4 level. 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 3. Nonobstructing renal calculi. 4. Pericardial effusion. Chest X-Ray 03/29/25 14:26 Impression: No acute cardiopulmonary abnormality. Labs Labs: Laboratory Results - last 24 hr 03/29/25 03/29/25 03/29/25 12:05 12:06 12:45 WBC 12.1 H RBC 4.42 L Hgb 13.8 L D Hct 43.0 MCV 97.3 MCH 31.2 MCHC 32.1 RDW 13.0 Plt Count 308 MPV 9.6 Immature Gran % (Auto) 0.9 H Neut % (Auto) 70.1 Lymph % (Auto) 20.4 [place] % (Auto) 6.9 Eos % (Auto) 1.4 Baso % (Auto) 0.3 Lymph # (Auto) 2.47 [place] # (Auto) 0.8 H Eos # (Auto) 0.2 Baso # (Auto) 0.0 Abs Immat Gran (auto) 0.11 H Absolute Neuts (auto) 8.5 H Absolute Nucleated RBC 0.000 Nucleated RBC % 0.0 PT 12.5 INR 0.9 APTT 25.0 Puncture Site Left radial ABG pH 7.427 ABG pCO2 51.4 H ABG pO2 124.6 H ABG PO2/FiO2 Ratio 3.89 ABG HCO3 33.1 H ABG O2 Saturation 98.5 ABG O2 Content 17.1 ABG Base Excess 7.5 A-a Gradient 43.4 Oxyhemoglobin 97.5 Total Hemoglobin 12.3 O2 Delivery Device Nasal cannula O2 Liters/Min 3.0 FiO2 32 Sodium 136 L Potassium 4.0 Chloride 93 L Carbon Dioxide 39 H Anion Gap 4 BUN 26 H D Creatinine 0.89 Estim Creat Clear Calc 53 Estimated GFR > 60 Glucose 105 POC Capillary Glucose Lactic Acid Calcium 9.6 Magnesium 2.2 Total Bilirubin 1.1 AST 35 ALT 21 Alkaline Phosphatase 74 Troponin I 0.025 NT-Pro-B Natriuret Pep 1090 H Total Protein 6.9 Albumin 3.9 Lipase 44 Blood Type O Positive Antibody Screen Negative 03/29/25 03/29/25 03/29/25 14:06 16:23 18:21 WBC RBC Hgb 11.3 L Hct 34.4 L MCV MCH MCHC RDW Plt Count MPV Immature Gran % (Auto) Neut % (Auto) Lymph % (Auto) [place] % (Auto) Eos % (Auto) Baso % (Auto) Lymph # (Auto) [place] # (Auto) Eos # (Auto) Baso # (Auto) Abs Immat Gran (auto) Absolute Neuts (auto) Absolute Nucleated RBC Nucleated RBC % PT INR APTT Puncture Site ABG pH ABG pCO2 ABG pO2 ABG PO2/FiO2 Ratio ABG HCO3 ABG O2 Saturation ABG O2 Content ABG Base Excess A-a Gradient Oxyhemoglobin Total Hemoglobin O2 Delivery Device O2 Liters/Min FiO2 Sodium Potassium Chloride Carbon Dioxide Anion Gap BUN Creatinine Estim Creat Clear Calc Estimated GFR Glucose POC Capillary Glucose 106 H Lactic Acid 0.8 Calcium Magnesium Total Bilirubin AST ALT Alkaline Phosphatase Troponin I 0.018 D NT-Pro-B Natriuret Pep Total Protein Albumin Lipase Blood Type Antibody Screen 03/29/25 03/30/25 03/30/25 20:13 02:28 06:29 WBC RBC Hgb 12.5 L 10.6 L 10.5 L Hct 38.6 L 33.1 L 32.3 L MCV MCH MCHC RDW Plt Count MPV Immature Gran % (Auto) Neut % (Auto) Lymph % (Auto) [place] % (Auto) Eos % (Auto) Baso % (Auto) Lymph # (Auto) [place] # (Auto) Eos # (Auto) Baso # (Auto) Abs Immat Gran (auto) Absolute Neuts (auto) Absolute Nucleated RBC Nucleated RBC % PT INR APTT Puncture Site ABG pH ABG pCO2 ABG pO2 ABG PO2/FiO2 Ratio ABG HCO3 ABG O2 Saturation ABG O2 Content ABG Base Excess A-a Gradient Oxyhemoglobin Total Hemoglobin O2 Delivery Device O2 Liters/Min FiO2 Sodium Potassium Chloride Carbon Dioxide Anion Gap BUN Creatinine Estim Creat Clear Calc Estimated GFR Glucose POC Capillary Glucose Lactic Acid Calcium Magnesium Total Bilirubin AST ALT Alkaline Phosphatase Troponin I NT-Pro-B Natriuret Pep Total Protein Albumin Lipase Blood Type Antibody Screen Quality VTE Prophylaxis VTE prophylaxis: mechanical ordered
[2025-03-30] MEDS: PANTOPRAZOLE SODIUM IV 40 MG VIAL IV PUSH (09:03)
[2025-03-30] MEDS: CYANOCOBALAMIN 1,000 MCG TABLET 1000 MCG PO (09:06)
[2025-03-30] MEDS: FAMOTIDINE 20 MG TABLET PO ×2 (09:06→20:59)
[2025-03-30] MEDS: FINASTERIDE 5 MG TABLET PO (09:06)
[2025-03-30] MEDS: SERTRALINE HCL 50 MG TABLET PO (09:06)
[2025-03-30] MEDS: ATORVASTATIN 40 MG TABLET PO (09:06)
[2025-03-30] MEDS: FUROSEMIDE 40 MG TABLET PO ×2 (09:06→16:36)
[2025-03-30] MEDS: CHOLECALCIFEROL (VITAMIN D3) 25 MCG (1,000 UNITS) TABLET PO (09:06)
[2025-03-30] MEDS: IPRATROPIUM 0.5 MG/ALBUTEROL SULFATE 2.5 MG (BASE) AMPUL.NEB 3 ML INHALATION ×3 (09:25→20:30)
[2025-03-30] MEDS: FLUTICASONE/SALMETEROL 115-21 MCG INHALER 1 PUFF 2 PUFF INHALATION ×2 (09:28→20:30)
[2025-03-30] MEDS: LACTATED RINGERS 1,000 ML 75 ML IV CONT (12:11)
[2025-03-30] MEDS: SALINE 0.65% NAS SOLN 44 ML BTL 1 SPRAY NASAL ×2 (13:02→21:00)
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
[2025-03-30] MEDS: TAMSULOSIN HCL 0.4 MG CAPSULE PO (20:58)
[2025-03-30] MEDS: ALPRAZolam (*CRX) 0.25 MG TABLET PO (20:59)
[2025-03-31] VITALS (18 sets, daily range): BP systolic 104–126; BP diastolic 41–57; PULSE 69–93; RESP 16–22; TEMP 36.5–36.7; O2SAT 95–100
[2025-03-31] MEDS: LACTATED RINGERS 1,000 ML 75 ML IV CONT (01:02)
[2025-03-31] MEDS: IPRATROPIUM 0.5 MG/ALBUTEROL SULFATE 2.5 MG (BASE) AMPUL.NEB 3 ML INHALATION ×3 (02:25→14:12)
[2025-03-31 04:35] LABS: Hematocrit 28.6 % (42.0-52.0); Hemoglobin 9.2 g/dL (14.0-18.0); Immature Granulocyte Percent A 1.3 % (0-0.5); Lymphocytes Absolute Auto 1.94 K/mm3 (0.9-3.2); Mean Corpuscular HGB Conc 32.2 g/dl (32-36); Mean Corpuscular Hemoglobin 31.4 pg (26-34); Mean Corpuscular Volume 97.6 fl (80-100); Nucleated Red Blood Cells Absolute Auto 0.000 K/mm3 (0.0-0.012); Nucleated Red Blood Cells Perc 0.0 % (0.0-0.2); Platelet Count Result 188 k/mm3 (150-375); Red Blood Count 2.93 M/mm3 (4.6-6.20); White Blood Count 8.6 K/mm3 (4.5-10.0)
[2025-03-31 04:59] LABS: Alanine Aminotransferase 17 U/L (6-50); Albumin Level 3.0 g/dL (3.5-5.1); Alkaline Phosphatase 66 U/L (38-126); Aspartate Amino Transferase 21 U/L (17-59); Bilirubin,Total 1.2 mg/dL (0.2-1.3); Blood Urea Nitrogen 24 mg/dL (9-20); Calcium 8.6 mg/dL (8.4-10.2); Chloride 94 mmol/L (98-107); Estimated CRCL calculation 47 ml/min; Estimated Glomerular Filt Rate > 60; Glucose 94 mg/dL (65-110); Potassium 3.3 mmol/L (3.4-5.0); Sodium 135 mmol/L (137-145); Total Protein 5.2 g/dL (6.3-8.2)
[2025-03-31 07:00] LABS: Carbon Dioxide > 40 mmol/L (22-30)
[2025-03-31] MEDS: FLUTICASONE/SALMETEROL 115-21 MCG INHALER 1 PUFF 2 PUFF INHALATION ×2 (07:48→20:31)
[2025-03-31] MEDS: PANTOPRAZOLE SODIUM IV 40 MG VIAL IV PUSH (09:14)
[2025-03-31] MEDS: FUROSEMIDE 40 MG TABLET PO ×2 (09:14→16:30)
[2025-03-31] MEDS: FAMOTIDINE 20 MG TABLET PO ×2 (09:14→20:03)
[2025-03-31] MEDS: POTASSIUM CHLORIDE 20 MEQ ER TABLET 40 MEQ PO (09:14)
[2025-03-31] MEDS: SERTRALINE HCL 50 MG TABLET PO (09:14)
[2025-03-31] MEDS: CHOLECALCIFEROL (VITAMIN D3) 25 MCG (1,000 UNITS) TABLET PO (09:14)
[2025-03-31] MEDS: FINASTERIDE 5 MG TABLET PO (09:14)
[2025-03-31] MEDS: ATORVASTATIN 40 MG TABLET PO (09:14)
[2025-03-31] MEDS: CYANOCOBALAMIN 1,000 MCG TABLET 1000 MCG PO (09:14)
[2025-03-31 11:40] LABS: Potassium 3.7 mmol/L (3.4-5.0)
--- NOTE | 2025-03-31 12:50 | PM.IMPN ---
Progress Note: A&P Assessment and Plan (1) GI bleed: Qualifiers: GI bleed type/associated pathology: unspecified gastrointestinal hemorrhage type Qualified Code(s): K92.2 - Gastrointestinal hemorrhage, unspecified Code(s): K92.2 - Gastrointestinal hemorrhage, unspecified Status: Acute Assessment and Plan: Patient presents with what he states is his 7th episode of GI bleed. Blood is bright red per rectum. No associated abdominal pain. Most recent GI note states the patient has extensive diverticular disease. EGD on 10/17/2020 found gastritis and EGD that same day found diverticulosis with probable recent diverticular bleed from left colon. - Hgb stable on admit at 13.8 - [place] was positive for bright red blood - holding aspirin - CT abd/pelvis Abdomen pelvis CT with no evidence of acute extravasation of arterial phase contrast within the GI tract. Diverticulosis of distal colon. Mild AAA. 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 Nonobstructing renal calculi. Pericardial effusion. - GI consulted, awaiting recs - trend H&H q.6 hours - continue pantoprazole - monitor hemodynamic stability and telemetry - Clear liquid per GI last night, increased too heart healthy diet today, tolerating well - Hgb from 10.5 yesterday to 9.2 today, will continue with serial h/h checks despite no melena episodes (2) COPD (chronic obstructive pulmonary disease): Qualifiers: COPD type: chronic bronchitis Chronic bronchitis type: simple Qualified Code(s): J41.0 - Simple chronic bronchitis Code(s): J44.9 - Chronic obstructive pulmonary disease, unspecified Status: Chronic Assessment and Plan: Patient with multiple hospital admissions for COPD exacerbations. On 3 L O2 at home. Chest x-ray with no acute cardiopulmonary abnormalities. Not in acute exacerbation. - DuoNebs Q6H terrence, Advair Q 12H, guaifenesin Q 4 - home medications: Pulmicort, formoterol, DuoNeb, Combivent, guaifenesin - Pt with established pulm, f/u appt next month (3) Depression with anxiety: Code(s): F41.8 - Other specified anxiety disorders Status: Chronic Assessment and Plan: Continue sertraline, Xanax HS (4) CHF (congestive heart failure): Code(s): I50.9 - Heart failure, unspecified Status: Chronic Assessment and Plan: - BNP 1090 - most recent echo from 09/01/2023 demonstrates EF 20-25, LV grade 1 diastolic dysfunction - currently on: Carvedilol, 40 mg furosemide, sublingual nitro p.r.n. - monitor I&Os - trend renal function (5) BPH (benign prostatic hyperplasia): Code(s): N40.0 - Benign prostatic hyperplasia without lower urinary tract symptoms Status: Chronic Assessment and Plan: Continue tamsulosin, finasteride Plan Diet: Heart healthy GI prophylaxis: NA DVT prophylaxis: SCDs lines/drains: PIV Fluids: n/a Code status: Full Subjective Date/time seen: 03/31/25 0750 Interval history: Pt resting in bed upon my arrival. Pt states that he is feeling better today but does endorse some SOB and weakness still. Denies melena, last episode was yesterday. Tolerating diet. Review of Systems Review of Systems: All systems reviewed & are unremarkable except as noted in HPI and below Exam Narrative: GENERAL: non-toxic appearing, in no acute distress. Chronically ill-appearing. Thin. HEAD: Normocephalic, atraumatic. EYES: PERRLA. Conjunctivae clear. NOSE: Normal no drainage. Nasal cannula in place THROAT: Pharynx clear, no exudate. NECK: Trachea midline. No adenopathy, no masses. RESPIRATORY: Airway patent, respirations nonlabored. Barrel chested. Minimal air movement bilaterally CARDIOVASCULAR: Regular rate and rhythm, tele 71 bpm GASTROINTESTINAL: TTP epigastric region, hypoactive BS GENITOURINARY: Defer MUSCULOSKELETAL: Moves all extremities. No gross deformities. Generalized weakness at baseline SKIN: Warm, dry, normal color. NEURO: A&O X4. Speech clear PSYCHIATRIC: Normal interaction Objective Data Vital Signs Vital Signs: Vital Signs - 24 hr 03/30/25 13:52 03/30/25 15:00 03/30/25 15:00 Temperature 97.4 F L Pulse Rate 89 Respiratory Rate 18 20 Blood Pressure 108/48 L Pulse Oximetry 100 94 Oxygen Delivery Nasal Cannula Oxygen Flow Rate 2 03/30/25 15:04 03/30/25 16:00 03/30/25 20:00 Temperature Pulse Rate 84 76 Respiratory Rate 20 Blood Pressure Pulse Oximetry Oxygen Delivery Oxygen Flow Rate 03/30/25 20:30 03/30/25 20:39 03/30/25 20:45 Temperature Pulse Rate 86 92 Respiratory Rate 20 20 Blood Pressure Pulse Oximetry 99 Oxygen Delivery Nasal Cannula Oxygen Flow Rate 2 03/30/25 20:55 03/30/25 20:59 03/31/25 00:00 Temperature 97.1 F L Pulse Rate 96 106 H 74 Respiratory Rate 20 Blood Pressure 131/55 L Pulse Oximetry 99 Oxygen Delivery Oxygen Flow Rate 03/31/25 02:25 03/31/25 02:33 03/31/25 04:00 Temperature Pulse Rate 78 84 72 Respiratory Rate 18 18 Blood Pressure Pulse Oximetry Oxygen Delivery Oxygen Flow Rate 03/31/25 04:47 03/31/25 07:50 03/31/25 07:50 Temperature 97.7 F Pulse Rate 85 77 Respiratory Rate 20 20 Blood Pressure 104/41 L Pulse Oximetry 99 99 Oxygen Delivery Nasal Cannula Oxygen Flow Rate 2 03/31/25 07:52 03/31/25 08:00 03/31/25 09:14 Temperature Pulse Rate 93 77 Respiratory Rate Blood Pressure Pulse Oximetry 99 Oxygen Delivery Nasal Cannula Oxygen Flow Rate 2 Intake/Output Intake/Output: Intake & Output 03/28/25 03/29/25 03/30/25 03/31/25 23:59 23:59 23:59 23:59 Intake Total 0362 695 6476.8 Output Total 300 Balance 683 387 2679.8 Meds/Results Medications: Active Medications Generic Name Dose Route Start Last Admin Trade Name Freq PRN Reason Stop Dose Admin Albuterol/Ipratropium 3 ml 03/29/25 20:00 03/31/25 07:48 Ipratropium 0.5 Mg/Albuterol Sulfate 2.5 Mg (Base) Ampul.Neb 3 Ml INHALATION 3 ml Q6HRT TERRENCE Administration Alprazolam 0.25 mg 03/29/25 21:00 03/30/25 20:59 Alprazolam (*Crx) 0.25 Mg Tablet PO 0.25 mg HS TERRENCE Administration Atorvastatin Calcium 40 mg 03/30/25 09:00 03/31/25 09:14 Atorvastatin 40 Mg Tablet PO 40 mg DAILY TERRENCE Administration Carvedilol 3.125 mg 03/29/25 21:00 03/31/25 09:14 Carvedilol 3.125 Mg Tablet PO 3.125 mg Q12HR TERRENCE Administration Cyanocobalamin 1,000 mcg 03/30/25 09:00 03/31/25 09:14 Cyanocobalamin 1,000 Mcg Tablet PO 1,000 mcg DAILY TERRENCE Administration Famotidine 20 mg 03/29/25 21:00 03/31/25 09:14 Famotidine 20 Mg Tablet PO 20 mg Q12HR TERRENCE Administration Finasteride 5 mg 03/30/25 09:00 03/31/25 09:14 Finasteride 5 Mg Tablet PO 5 mg DAILY TERRENCE Administration Furosemide 40 mg 03/30/25 09:00 03/31/25 09:14 Furosemide 40 Mg Tablet PO 40 mg BID TERRENCE Administration Guaifenesin 200 mg 03/29/25 17:37 Guaifenesin 200 Mg/10 Ml Udc PO Q4H PRN Congestion Miscellaneous Information 1 each 03/29/25 00:01 03/29/25 18:48 Nonformulary Drug (Formoterol Fumarate 20 Mcg/2 Ml Solution For Nebulization) Can Patient XX 04/28/25 00:00 Not Given CLARIFY TERRENCE Nitroglycerin 0.4 mg 03/29/25 17:39 Nitroglycerin Sl 0.4 Mg Tablet SUBLINGUAL PRN PRN Chest Pain Non-Formulary Medication 20 mcg 03/30/25 09:00 Formoterol Fumarate INHALATION 04/29/25 08:59 BID TERRENCE Ondansetron HCl 4 mg 03/29/25 14:11 Ondansetron Inj 4 Mg/2 Ml Vial IV PUSH Q4H PRN Nausea Pantoprazole Sodium 40 mg 03/29/25 14:45 03/31/25 09:14 Pantoprazole Sodium Iv 40 Mg Vial IV PUSH 40 mg QAM TERRENCE Administration Fluticasone/Salmeterol 2 puff 03/29/25 20:00 03/31/25 07:48 Fluticasone/Salmeterol 115-21 Mcg Inhaler 1 Puff INHALATION 2 puff Q12HRT TERRENCE Administration Sertraline HCl 50 mg 03/30/25 09:00 03/31/25 09:14 Sertraline Hcl 50 Mg Tablet PO 50 mg DAILY TERRENCE Administration Sodium Chloride 1 spray 03/30/25 12:33 03/30/25 21:00 Saline 0.65% Joey Soln 44 Ml Btl NASAL 1 spray Q6HR PRN Administration Congestion Tamsulosin HCl 0.4 mg 03/29/25 21:00 03/30/25 20:58 Tamsulosin Hcl 0.4 Mg Capsule PO 0.4 mg HS TERRENCE Administration Vitamin D 25 mcg 03/30/25 09:00 03/31/25 09:14 Cholecalciferol (Vitamin D3) 25 Mcg (1,000 Units) Tablet PO 25 mcg DAILY TERRENCE Administration Radiology Results: ITS Impressions Abdomen/Pelvis CT 03/29/25 13:51 IMPRESSION: 1. No evidence of active extravasation of arterial phase contrast within the GI tract. Diverticulosis of distal colon. 2. Mild aneurysm of abdominal aorta measuring 31 mm at L3-4 level. 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 3. Nonobstructing renal calculi. 4. Pericardial effusion. Chest X-Ray 03/29/25 14:26 Impression: No acute cardiopulmonary abnormality. Labs Labs: Laboratory Results - last 24 hr 03/31/25 03/31/25 04:08 11:21 WBC 8.6 RBC 2.93 L Hgb 9.2 L Hct 28.6 L MCV 97.6 MCH 31.4 MCHC 32.2 RDW 12.9 Plt Count 188 MPV 9.7 Immature Gran % (Auto) 1.3 H Neut % (Auto) 64.7 Lymph % (Auto) 22.6 [place] % (Auto) 7.2 Eos % (Auto) 3.7 Baso % (Auto) 0.5 Lymph # (Auto) 1.94 [place] # (Auto) 0.6 Eos # (Auto) 0.3 Baso # (Auto) 0.0 Abs Immat Gran (auto) 0.11 H Absolute Neuts (auto) 5.5 Absolute Nucleated RBC 0.000 Nucleated RBC % 0.0 Sodium 135 L Potassium 3.3 L 3.7 Chloride 94 L Carbon Dioxide > 40 H Anion Gap BUN 24 H Creatinine 1.00 Estim Creat Clear Calc 47 Estimated GFR > 60 Glucose 94 Calcium 8.6 Total Bilirubin 1.2 AST 21 ALT 17 Alkaline Phosphatase 66 Total Protein 5.2 L Albumin 3.0 L Quality VTE Prophylaxis VTE prophylaxis: mechanical ordered
--- NOTE | 2025-03-31 13:25 | P.PNGI_ITS ---
Progress Note: A&P Assessment and Plan (1) GI bleed: Qualifiers: GI bleed type/associated pathology: unspecified gastrointestinal hemorrhage type Qualified Code(s): K92.2 - Gastrointestinal hemorrhage, unspecified Code(s): K92.2 - Gastrointestinal hemorrhage, unspecified Status: Acute Assessment and Plan: no more episodes, denies any rectal bleeding for more than 24 hours probably was diverticula source no need to repeat colonoscopy (2) Diverticulosis of colon with hemorrhage: Code(s): K57.31 - Diverticulosis of large intestine without perforation or abscess with bleeding Status: Acute (3) GERD (gastroesophageal reflux disease): Code(s): K21.9 - Gastro-esophageal reflux disease without esophagitis Status: Chronic (4) Ischemic cardiomyopathy: Code(s): I25.5 - Ischemic cardiomyopathy Status: Chronic (5) Acute blood loss anemia: Code(s): D62 - Acute posthemorrhagic anemia Status: Acute Assessment and Plan: hgb 9.2 today, monitor (6) Chronic respiratory failure with hypoxia, on home oxygen therapy: Code(s): J96.11 - Chronic respiratory failure with hypoxia; Z99.81 - Dependence on supplemental oxygen Status: Chronic Subjective Date/time seen: 03/31/25 13:25 Interval history: no more bleeding last 24 hours doing better tolerating diet Review of Systems Review of Systems: All systems reviewed & are unremarkable except as noted in HPI and below Exam Const: General: comfortable and no acute distress Other: chronically ill appearing HENMT: Face/Nose/Sinus: Normal nares present Eyes: General: appearance normal, both eyes and all related structures Neck: Neck: supple Resp: Other: using oxygen, no wheezes Cardio: Rate: regular rate Rhythm: regular rhythm GI: Inspection: non-distended GI Palp: Yes Soft to palpation and No Tenderness to palpation present (GI) Skin: General skin exam: normal color Neuro: Speech: normal speech Motor exam (neuro): 5/5 motor strength present throughout Extrem: General: normal to inspection Psych: Mental Status: mental status grossly normal Objective Data Vital Signs Vital Signs: Vital Signs - 24 hr 03/30/25 13:52 03/30/25 15:00 03/30/25 15:00 Temperature 97.4 F L Pulse Rate 89 Respiratory Rate 18 20 Blood Pressure 108/48 L Pulse Oximetry 100 94 Oxygen Delivery Nasal Cannula Oxygen Flow Rate 2 03/30/25 15:04 03/30/25 16:00 03/30/25 20:00 Temperature Pulse Rate 84 76 Respiratory Rate 20 Blood Pressure Pulse Oximetry Oxygen Delivery Oxygen Flow Rate 03/30/25 20:30 03/30/25 20:39 03/30/25 20:45 Temperature Pulse Rate 86 92 Respiratory Rate 20 20 Blood Pressure Pulse Oximetry 99 Oxygen Delivery Nasal Cannula Oxygen Flow Rate 2 03/30/25 20:55 03/30/25 20:59 03/31/25 00:00 Temperature 97.1 F L Pulse Rate 96 106 H 74 Respiratory Rate 20 Blood Pressure 131/55 L Pulse Oximetry 99 Oxygen Delivery Oxygen Flow Rate 03/31/25 02:25 03/31/25 02:33 03/31/25 04:00 Temperature Pulse Rate 78 84 72 Respiratory Rate 18 18 Blood Pressure Pulse Oximetry Oxygen Delivery Oxygen Flow Rate 03/31/25 04:47 03/31/25 07:50 03/31/25 07:50 Temperature 97.7 F Pulse Rate 85 77 Respiratory Rate 20 20 Blood Pressure 104/41 L Pulse Oximetry 99 99 Oxygen Delivery Nasal Cannula Oxygen Flow Rate 2 03/31/25 07:52 03/31/25 08:00 03/31/25 09:14 Temperature Pulse Rate 93 77 Respiratory Rate Blood Pressure Pulse Oximetry 99 Oxygen Delivery Nasal Cannula Oxygen Flow Rate 2 03/31/25 12:00 Temperature Pulse Rate 86 Respiratory Rate Blood Pressure Pulse Oximetry Oxygen Delivery Oxygen Flow Rate Intake/Output Intake/Output: Intake & Output 03/28/25 03/29/25 03/30/25 03/31/25 23:59 23:59 23:59 23:59 Intake Total 2240 803 8854.8 Output Total 300 Balance 800 623 3744.8 Meds/Results Medications: Active Medications Generic Name Dose Route Start Last Admin Trade Name Freq PRN Reason Stop Dose Admin Albuterol/Ipratropium 3 ml 03/29/25 20:00 03/31/25 07:48 Ipratropium 0.5 Mg/Albuterol Sulfate 2.5 Mg (Base) Ampul.Neb 3 Ml INHALATION 3 ml Q6HRT GINA Administration Alprazolam 0.25 mg 03/29/25 21:00 03/30/25 20:59 Alprazolam (*Crx) 0.25 Mg Tablet PO 0.25 mg HS GINA Administration Atorvastatin Calcium 40 mg 03/30/25 09:00 03/31/25 09:14 Atorvastatin 40 Mg Tablet PO 40 mg DAILY GINA Administration Carvedilol 3.125 mg 03/29/25 21:00 03/31/25 09:14 Carvedilol 3.125 Mg Tablet PO 3.125 mg Q12HR GINA Administration Cyanocobalamin 1,000 mcg 03/30/25 09:00 03/31/25 09:14 Cyanocobalamin 1,000 Mcg Tablet PO 1,000 mcg DAILY GINA Administration Famotidine 20 mg 03/29/25 21:00 03/31/25 09:14 Famotidine 20 Mg Tablet PO 20 mg Q12HR GINA Administration Finasteride 5 mg 03/30/25 09:00 03/31/25 09:14 Finasteride 5 Mg Tablet PO 5 mg DAILY GINA Administration Furosemide 40 mg 03/30/25 09:00 03/31/25 09:14 Furosemide 40 Mg Tablet PO 40 mg BID GINA Administration Guaifenesin 200 mg 03/29/25 17:37 Guaifenesin 200 Mg/10 Ml Udc PO Q4H PRN Congestion Miscellaneous Information 1 each 03/29/25 00:01 03/29/25 18:48 Nonformulary Drug (Formoterol Fumarate 20 Mcg/2 Ml Solution For Nebulization) Can Patient XX 04/28/25 00:00 Not Given CLARIFY GINA Nitroglycerin 0.4 mg 03/29/25 17:39 Nitroglycerin Sl 0.4 Mg Tablet SUBLINGUAL PRN PRN Chest Pain Non-Formulary Medication 20 mcg 03/30/25 09:00 Formoterol Fumarate INHALATION 04/29/25 08:59 BID [facility] Ondansetron HCl 4 mg 03/29/25 14:11 Ondansetron Inj 4 Mg/2 Ml Vial IV PUSH Q4H PRN Nausea Pantoprazole Sodium 40 mg 03/29/25 14:45 03/31/25 09:14 Pantoprazole Sodium Iv 40 Mg Vial IV PUSH 40 mg QAM GINA Administration Fluticasone/Salmeterol 2 puff 03/29/25 20:00 03/31/25 07:48 Fluticasone/Salmeterol 115-21 Mcg Inhaler 1 Puff INHALATION 2 puff Q12HRT GINA Administration Sertraline HCl 50 mg 03/30/25 09:00 03/31/25 09:14 Sertraline Hcl 50 Mg Tablet PO 50 mg DAILY GINA Administration Sodium Chloride 1 spray 03/30/25 12:33 03/30/25 21:00 Saline 0.65% Joey Soln 44 Ml Btl NASAL 1 spray Q6HR PRN Administration Congestion Tamsulosin HCl 0.4 mg 03/29/25 21:00 03/30/25 20:58 Tamsulosin Hcl 0.4 Mg Capsule PO 0.4 mg HS GINA Administration Vitamin D 25 mcg 03/30/25 09:00 03/31/25 09:14 Cholecalciferol (Vitamin D3) 25 Mcg (1,000 Units) Tablet PO 25 mcg DAILY GINA Administration Radiology Results: ITS Impressions Abdomen/Pelvis CT 03/29/25 13:51 IMPRESSION: 1. No evidence of active extravasation of arterial phase contrast within the GI tract. Diverticulosis of distal colon. 2. Mild aneurysm of abdominal aorta measuring 31 mm at L3-4 level. 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 3. Nonobstructing renal calculi. 4. Pericardial effusion. Chest X-Ray 03/29/25 14:26 Impression: No acute cardiopulmonary abnormality. Labs Labs: Laboratory Results - last 24 hr 03/31/25 03/31/25 04:08 11:21 WBC 8.6 RBC 2.93 L Hgb 9.2 L Hct 28.6 L MCV 97.6 MCH 31.4 MCHC 32.2 RDW 12.9 Plt Count 188 MPV 9.7 Immature Gran % (Auto) 1.3 H Neut % (Auto) 64.7 Lymph % (Auto) 22.6 [place] % (Auto) 7.2 Eos % (Auto) 3.7 Baso % (Auto) 0.5 Lymph # (Auto) 1.94 [place] # (Auto) 0.6 Eos # (Auto) 0.3 Baso # (Auto) 0.0 Abs Immat Gran (auto) 0.11 H Absolute Neuts (auto) 5.5 Absolute Nucleated RBC 0.000 Nucleated RBC % 0.0 Sodium 135 L Potassium 3.3 L 3.7 Chloride 94 L Carbon Dioxide > 40 H Anion Gap BUN 24 H Creatinine 1.00 Estim Creat Clear Calc 47 Estimated GFR > 60 Glucose 94 Calcium 8.6 Total Bilirubin 1.2 AST 21 ALT 17 Alkaline Phosphatase 66 Total Protein 5.2 L Albumin 3.0 L
[2025-03-31] MEDS: ALPRAZolam (*CRX) 0.25 MG TABLET PO (20:03)
[2025-03-31] MEDS: TAMSULOSIN HCL 0.4 MG CAPSULE PO (20:03)
[2025-03-31] MEDS: IPRATROPIUM BR 0.02% INH SOLN 0.5 MG/2.5 ML VIAL INHALATION (20:21)
[2025-04-01] VITALS (7 sets, daily range): BP systolic 121; BP diastolic 46; PULSE 72–99; RESP 16–20; TEMP 36.4; O2SAT 94–98
--- NOTE | 2025-04-01 04:13 | PC.NURSE ---
This Nurse recognized this patients telemetry had 19+ beats of VTach at 0343. The patient came out of the rhythm on his own. Vitals were taken after the episode. Hospitalist was notified and ordered a STAT CBC, BNP, and MAG.
[2025-04-01 05:07] LABS: Hematocrit 28.1 % (42.0-52.0); Hemoglobin 9.1 g/dL (14.0-18.0); Mean Corpuscular HGB Conc 32.4 g/dl (32-36); Mean Corpuscular Hemoglobin 31.3 pg (26-34); Mean Corpuscular Volume 96.6 fl (80-100); Platelet Count Result 193 k/mm3 (150-375); Red Blood Count 2.91 M/mm3 (4.6-6.20); White Blood Count 7.5 K/mm3 (4.5-10.0)
[2025-04-01 05:08] LABS: Hematocrit 27.4 % (42.0-52.0); Hemoglobin 9.0 g/dL (14.0-18.0); Immature Granulocyte Percent A 1.1 % (0-0.5); Lymphocytes Absolute Auto 1.53 K/mm3 (0.9-3.2); Mean Corpuscular HGB Conc 32.8 g/dl (32-36); Mean Corpuscular Hemoglobin 31.4 pg (26-34); Mean Corpuscular Volume 95.5 fl (80-100); Nucleated Red Blood Cells Absolute Auto 0.000 K/mm3 (0.0-0.012); Nucleated Red Blood Cells Perc 0.0 % (0.0-0.2); Platelet Count Result 186 k/mm3 (150-375); Red Blood Count 2.87 M/mm3 (4.6-6.20); White Blood Count 7.6 K/mm3 (4.5-10.0)
[2025-04-01 05:28] LABS: Alanine Aminotransferase 16 U/L (6-50); Albumin Level 3.1 g/dL (3.5-5.1); Alkaline Phosphatase 79 U/L (38-126); Anion Gap 0 mmol/L (4-12); Aspartate Amino Transferase 20 U/L (17-59); Bilirubin,Total 1.1 mg/dL (0.2-1.3); Blood Urea Nitrogen 21 mg/dL (9-20); Calcium 8.5 mg/dL (8.4-10.2); Carbon Dioxide 39 mmol/L (22-30); Chloride 97 mmol/L (98-107); Estimated CRCL calculation 44 ml/min; Estimated Glomerular Filt Rate > 60; Glucose 108 mg/dL (65-110); Magnesium 2.0 mg/dL (1.6-2.3); Potassium 3.2 mmol/L (3.4-5.0); Sodium 136 mmol/L (137-145); Total Protein 5.4 g/dL (6.3-8.2)
[2025-04-01] MEDS: IPRATROPIUM BR 0.02% INH SOLN 0.5 MG/2.5 ML VIAL INHALATION (08:01)
[2025-04-01] MEDS: FLUTICASONE/SALMETEROL 115-21 MCG INHALER 1 PUFF 2 PUFF INHALATION (08:06)
[2025-04-01] MEDS: ATORVASTATIN 40 MG TABLET PO (08:53)
[2025-04-01] MEDS: CYANOCOBALAMIN 1,000 MCG TABLET 1000 MCG PO (08:53)
[2025-04-01] MEDS: FUROSEMIDE 40 MG TABLET PO (08:53)
[2025-04-01] MEDS: PANTOPRAZOLE SODIUM IV 40 MG VIAL IV PUSH (08:53)
[2025-04-01] MEDS: SERTRALINE HCL 50 MG TABLET PO (08:53)
[2025-04-01] MEDS: CHOLECALCIFEROL (VITAMIN D3) 25 MCG (1,000 UNITS) TABLET PO (08:53)
[2025-04-01] MEDS: FINASTERIDE 5 MG TABLET PO (08:53)
[2025-04-01] MEDS: FAMOTIDINE 20 MG TABLET PO (08:53)
[2025-04-01] MEDS: POTASSIUM CHLORIDE 20 MEQ ER TABLET 40 MEQ PO (09:00)
[2025-04-01] MEDS: ALPRAZolam (*CRX) 0.25 MG TABLET PO (09:00)
--- NOTE | 2025-04-01 09:56 | PM.DS ---
DS: Admitting Diagnosis Discharge Date 04/01/2025 Admitting Diagnosis GI bleed DS: Discharge Diagnosis Discharge Diagnosis (1) GI bleed: Qualifiers: GI bleed type/associated pathology: unspecified gastrointestinal hemorrhage type Qualified Code(s): K92.2 - Gastrointestinal hemorrhage, unspecified Code(s): K92.2 - Gastrointestinal hemorrhage, unspecified Status: Acute Assessment and Plan: Patient presents with what he states is his 7th episode of GI bleed. Blood is bright red per rectum. No associated abdominal pain. Most recent GI note states the patient has extensive diverticular disease. EGD on 10/17/2020 found gastritis and EGD that same day found diverticulosis with probable recent diverticular bleed from left colon. - Hgb stable on admit at 13.8 - [place] was positive for bright red blood - holding aspirin - CT abd/pelvis Abdomen pelvis CT with no evidence of acute extravasation of arterial phase contrast within the GI tract. Diverticulosis of distal colon. Mild AAA. 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 Nonobstructing renal calculi. Pericardial effusion. - GI consulted, awaiting recs - trend H&H q.6 hours - continue pantoprazole - monitor hemodynamic stability and telemetry - Clear liquid per GI last night, increased too heart healthy diet today, tolerating well - Hgb remains stable above 7, no more melena episodes x48 hours. GI signed off, no need for f/u cscope. (2) COPD (chronic obstructive pulmonary disease): Qualifiers: COPD type: chronic bronchitis Chronic bronchitis type: simple Qualified Code(s): J41.0 - Simple chronic bronchitis Code(s): J44.9 - Chronic obstructive pulmonary disease, unspecified Status: Chronic Assessment and Plan: Patient with multiple hospital admissions for COPD exacerbations. On 3 L O2 at home. Chest x-ray with no acute cardiopulmonary abnormalities. Not in acute exacerbation. - DuoNebs Q6H terrence, Advair Q 12H, guaifenesin Q 4 - home medications: Pulmicort, formoterol, DuoNeb, Combivent, guaifenesin - Pt with established pulm, f/u appt next month - Pulm had a discussion with pt at bedside today about his medications, plan to f/u with his established pulm. (3) Depression with anxiety: Code(s): F41.8 - Other specified anxiety disorders Status: Chronic Assessment and Plan: Continue sertraline, Xanax HS -Upon exam this AM, pt moderately anxious, he cannot tell me why. Pt reports taking Xanax 0.25mg PRN at home, dose given, helped pt greatly. Pt also spoke with pulm which helped reduce his anxiety. (4) CHF (congestive heart failure): Code(s): I50.9 - Heart failure, unspecified Status: Chronic Assessment and Plan: - BNP 1090 - most recent echo from 09/01/2023 demonstrates EF 20-25, LV grade 1 diastolic dysfunction - currently on: Carvedilol, 40 mg furosemide, sublingual nitro p.r.n. - monitor I&Os - trend renal function (5) BPH (benign prostatic hyperplasia): Code(s): N40.0 - Benign prostatic hyperplasia without lower urinary tract symptoms Status: Chronic Assessment and Plan: Continue tamsulosin, finasteride Plan Discharge today with follow-up with pulmonology & primary care. No need for repeat cscope per GI. DS: Summary Hospital Course Reason for hospitalization: GI bleed Hospital Course: The patient is an 84-year-old male with a complex medical history including ischemic cardiomyopathy (EF 20-25%), chronic respiratory failure with hypoxia on home oxygen, COPD, prior GI bleeds, and multiple other comorbidities, who presented with acute onset of bright red blood per rectum and chronic shortness of breath. On admission, he was hemodynamically stable, afebrile, and on his baseline 3L O2 via nasal cannula. Initial labs revealed leukocytosis, stable hemoglobin at 13.8 g/dL, and mild renal insufficiency (BUN 26, Cr 0.89). CT abdomen/pelvis showed no active GI bleeding but did reveal extensive diverticulosis of the distal colon, mild AAA, and significant vascular calcifications. GI was consulted and, given the patient?s history of recurrent diverticular bleeding and absence of hemodynamic instability or ongoing significant bleeding, conservative management was pursued. Aspirin was held, and the patient was monitored with serial H&H, which trended down to a kiara of 9.0-9.2 g/dL without further overt bleeding or hemodynamic compromise. No transfusions were required. The patient was initially NPO, then advanced to a clear liquid and subsequently heart-healthy diet as tolerated. His COPD and CHF were managed with home inhalers, diuretics, and oxygen, with no evidence of acute exacerbation during admission. He remained on his baseline medications with the addition of potassium supplementation for mild hypokalemia, likely secondary to diuretic use and decreased intake. He was evaluated by Pulmonology and GI, both of whom recommended outpatient follow-up and no need for repeat colonoscopy at this time. The patient?s condition remained stable throughout hospitalization, with resolution of rectal bleeding, stable hemoglobin, and return to baseline functional status. He was discharged home in stable condition with instructions for close outpatient follow-up with his primary care provider and fbi special agent, and clear return precautions for recurrent bleeding or decompensation. Status at Discharge Overall status at discharge: patient is back to baseline Time Spent with Patient Time attestation: Total time spent providing and/or coordinating discharge services: Time spent: Greater than 30 minutes Exam Narrative: GENERAL: non-toxic appearing, in no acute distress. Chronically ill-appearing. Thin. HEAD: Normocephalic, atraumatic. EYES: PERRLA. Conjunctivae clear. NOSE: Normal no drainage. Nasal cannula in place THROAT: Pharynx clear, no exudate. NECK: Trachea midline. No adenopathy, no masses. RESPIRATORY: Airway patent, respirations nonlabored. Barrel chested. Minimal air movement bilaterally, baseline CARDIOVASCULAR: Regular rate and rhythm, tele 71 bpm GASTROINTESTINAL: TTP epigastric region, hypoactive BS GENITOURINARY: Defer MUSCULOSKELETAL: Moves all extremities. No gross deformities. Generalized weakness at baseline SKIN: Warm, dry, normal color. NEURO: A&O X4. Speech clear PSYCHIATRIC: Normal interaction DS: Data Data Completed and Pending Completed studies during hospitalization: Labs, urine, imaging. Labs on day of discharge: Labs from last 24 hours 04/01/25 04/01/25 04/01/25 04:56 04:56 04:56 WBC RBC Hgb Hct MCV MCH MCHC RDW 13.2 Plt Count 193 186 MPV 9.4 9.4 Immature Gran % (Auto) 1.1 H Neut % (Auto) 63.5 Lymph % (Auto) 20.2 [place] % (Auto) 7.5 Eos % (Auto) 7.3 H Baso % (Auto) 0.4 Lymph # (Auto) 1.53 [place] # (Auto) 0.6 Eos # (Auto) 0.6 H Baso # (Auto) 0.0 Abs Immat Gran (auto) 0.08 H Absolute Neuts (auto) 4.8 Absolute Nucleated RBC 0.000 Nucleated RBC % 0.0 Sodium 136 L Potassium 3.2 L Chloride 97 L Carbon Dioxide 39 H Anion Gap 0 L BUN 21 H Creatinine 1.08 Estim Creat Clear Calc 44 Estimated GFR > 60 Glucose 108 Calcium 8.5 Magnesium 2.0 Total Bilirubin 1.1 AST 20 ALT 16 Alkaline Phosphatase 79 Total Protein 5.4 L Albumin 3.1 L 04/01/25 04/01/25 04/01/25 04:56 04:56 04:56 WBC RBC Hgb Hct MCV 96.6 MCH 31.3 31.4 MCHC 32.4 32.8 RDW 13.0 Plt Count MPV Immature Gran % (Auto) Neut % (Auto) Lymph % (Auto) [place] % (Auto) Eos % (Auto) Baso % (Auto) Lymph # (Auto) [place] # (Auto) Eos # (Auto) Baso # (Auto) Abs Immat Gran (auto) Absolute Neuts (auto) Absolute Nucleated RBC Nucleated RBC % Sodium Potassium Chloride Carbon Dioxide Anion Gap BUN Creatinine Estim Creat Clear Calc Estimated GFR Glucose Calcium Magnesium Total Bilirubin AST ALT Alkaline Phosphatase Total Protein Albumin 04/01/25 04/01/25 04/01/25 04:56 04:56 04:56 WBC RBC 2.91 L Hgb 9.1 L 9.0 L Hct 28.1 L 27.4 L MCV 95.5 MCH MCHC RDW Plt Count MPV Immature Gran % (Auto) Neut % (Auto) Lymph % (Auto) [place] % (Auto) Eos % (Auto) Baso % (Auto) Lymph # (Auto) [place] # (Auto) Eos # (Auto) Baso # (Auto) Abs Immat Gran (auto) Absolute Neuts (auto) Absolute Nucleated RBC Nucleated RBC % Sodium Potassium Chloride Carbon Dioxide Anion Gap BUN Creatinine Estim Creat Clear Calc Estimated GFR Glucose Calcium Magnesium Total Bilirubin AST ALT Alkaline Phosphatase Total Protein Albumin 04/01/25 04/01/25 03/31/25 04:56 04:56 11:21 WBC 7.5 7.6 RBC 2.87 L Hgb Hct MCV MCH MCHC RDW Plt Count MPV Immature Gran % (Auto) Neut % (Auto) Lymph % (Auto) [place] % (Auto) Eos % (Auto) Baso % (Auto) Lymph # (Auto) [place] # (Auto) Eos # (Auto) Baso # (Auto) Abs Immat Gran (auto) Absolute Neuts (auto) Absolute Nucleated RBC Nucleated RBC % Sodium Potassium 3.7 Chloride Carbon Dioxide Anion Gap BUN Creatinine Estim Creat Clear Calc Estimated GFR Glucose Calcium Magnesium Total Bilirubin AST ALT Alkaline Phosphatase Total Protein Albumin Discharge Plan Discharge Attending physician on discharge: Jim Valerio Consulting providers: Suzy Thomas; Joss Velasquez Discharging Clinician: Suzy Thomas Anticipated Discharge Date/Time: 04/01/25 12:00 Patient Disposition: Home Activity: as tolerated Diet: heart healthy Discharge Instructions: 1. If you have any more perfuse bleeding per rectum, go to your nearest ER. You can been cleared from the gastrointestinal team here with no need for a repeat colonoscopy. 2. I am starting you on a low dose potassium supplement due to mildly low values here. This could be due to altered dietary intake while in the hospital and/or the use of Lasix (furosemide). Make sure to follow-up with your primary care provider to re-check these laboratory values being on this supplement as well as surveillance for your aortic aneurysm. 3. Make sure to also follow-up with your established fbi special agent and manufactured buildings supervisor. Continue to check your blood pressure and blood sugar at home if applicable. Keep your scheduled appts with your primary care provider and any specialist that you may see. Return to the emergency department if you develop sudden shortness of breath, chest pain, a fever of greater than 101.5, or nausea, vomiting, abd pain, or diarrhea that does not go away. Follow-up with your primary care provider within 1-2 weeks, they will want to be updated on your inpatient stay in the hospital. Thank you for [facility] for your healthcare needs. Patient Instructions: Antibiotic Form, Potassium Chloride (By mouth), Aspirin (By mouth), Heart Failure (DC), Gastrointestinal Bleeding (GEN), Hypokalemia (GEN) Patient Language: Romanian Stand Alone Forms: General Discharge Information Follow-up/Referrals: Dena,Jayjay Chamorro [Other] - 2 Weeks Discharge Medications: New potassium chloride [Klor-Con M20] 20 mEq tablet,ER particles/crystals 20 meq PO DAILY Qty: 90 0RF Continued aspirin [Adult Low Dose Aspirin] 81 mg Tablet,Delayed Release (Dr/Ec) 81 mg PO DAILY Qty: 30 0RF atorvastatin 40 mg tablet 40 mg PO DAILY cyanocobalamin (vitamin B-12) 1,000 mcg Capsule 1,000 mcg PO DAILY coenzyme Q10 [Co Q-10] 30 mg capsule 200 mg PO QPM sertraline 50 mg tablet 50 mg PO DAILY ammonium lactate 12 % Cream 1 applic TOPICAL BID cholecalciferol (vitamin D3) [Vitamin D3] 25 mcg (1,000 unit) Tablet 25 mcg PO DAILY budesonide [Pulmicort] 0.25 mg/2 mL suspension for nebulization 0.25 mg inhalation TID formoterol fumarate 20 mcg/2 mL solution for nebulization 20 mcg INHALATION BID Rx Instructions: 0800, 2000 Saline Mist 0.65 % Aerosol,[place] 1 spray intranasal Q6HR PRN (Reason: Nasal Congestion) Qty: 0 0RF furosemide 40 mg tablet 40 mg PO BID Qty: 60 0RF guaifenesin [Adult Tussin Chest Congestion] 100 mg/5 mL liquid 200 mg PO Q4H PRN (Reason: congestion) Qty: 250 0RF famotidine 20 mg tablet 20 mg PO BID finasteride 5 mg tablet 5 mg PO DAILY tamsulosin 0.4 mg Capsule 0.4 mg PO HS carvedilol 3.125 mg tablet 3.125 mg PO BID calcium carbonate 600 mg calcium (1,500 mg) Tablet 200 mg PO DAILY Combivent Respimat 20-100 mcg/actuation mist 1 puff INHALATION QID ipratropium-albuterol 0.5 mg-3 mg(2.5 mg base)/3 mL solution for nebulization 3 ml INHALATION QID PRN (Reason: shortness of breath) Rx Instructions: takes 1030, 1500, 1900 alprazolam [Xanax] 0.25 mg tablet 0.25 mg PO HS nitroglycerin [Nitrostat] 0.4 mg tablet, sublingual 0.4 mg SUBLINGUAL PRN PRN (Reason: Chest Pain) Date of admission: 03/30/25 09:46 Primary Care Provider: Dena,Jayjay Chamorro Admitting Provider: Jessenia Parsons Attending physician on admission: Jessenia Parsons Condition: Stable Quality VTE Prophylaxis VTE prophylaxis: mechanical ordered Hospitalist MIPS Heart Failure (Exclusion) Patient has history of Heart Transplant or Left Ventricular Assistive Device?: No IF YES, STOP HERE Heart Failure (Qualifier) Patient has current or prior documentation of LVEF less than or equal to 40%, or mod/servere depressed LVSF?: Yes IF NO, STOP HERE If Yes, Heart Failure (Qualifier) Patient was prescribed or already taking an Angiotensin-Converting Enzyme (MILLY) Inhibitor, or Antiotensin Receptor Olamide (ARB): No Patient was prescribed or already taking bisoprolol, carvedilol, or sustained release metoprolol succinate: Yes If Medications not prescribed/taking Reason patient not prescribed/taking MILLY or ARB: Patient reasons: pt declined or other pt reason (plans to discuss with [facility] manufactured buildings supervisor, this EF was dx >1 year ago.)
--- NOTE | 2025-04-01 10:45 | PC.NURSE ---
I, Yessica Rosa RN, have reviewed documentation by Eneida RESTREPO and agree with the findings. 04/01/25 1046.
== END 2025-04-01 11:18 | disposition home or self-care (01) | DRG 378 ==
LOC: ANHED 14:14 → ANH2MED 14:58
PROVIDERS: Emergency Medicine; Nurse Practitioner; Admitting Provider Internal Medicine; Emergency Provider Emergency Medicine
DX: K57.31 Diverticulosis of large intestine without perforation or abscess with bleeding (principal); J96.11 Chronic respiratory failure with hypoxia; E87.6 Hypokalemia; F41.8 Other specified anxiety disorders; I25.2 Old myocardial infarction; I25.5 Ischemic cardiomyopathy; I50.9 Heart failure, unspecified; J44.9 Chronic obstructive pulmonary disease, unspecified; J41.0 Simple chronic bronchitis; K21.9 Gastro-esophageal reflux disease without esophagitis; N40.0 Benign prostatic hyperplasia without lower urinary tract symptoms; Z99.81 Dependence on supplemental oxygen; Z79.82 Long term (current) use of aspirin; F43.10 Post-traumatic stress disorder, unspecified; Z89.021 Acquired absence of right finger(s); Z95.5 Presence of coronary angioplasty implant and graft; Z87.891 Personal history of nicotine dependence; Z86.73 Personal history of transient ischemic attack (TIA), and cerebral infarction without residual deficits; Z95.0 Presence of cardiac pacemaker
CPT/HCPCS: 36415; 36600; 71045; 74177; 80053; 82805; 82948; 83605; 83690; 83735; 83880; 84132; 84484; 85014; 85018; 85025; 85027; 85610; 85730; 86850; 86900; 86901; 93005; 94640; 96361; 96374; 99285; A9270; G0378; J2470; J7030; J7120; Q9967

== ENCOUNTER 2025-04-06 23:50 | Inpatient (IN) | payer MEDICARE, OTHER, SELFPAY ==
--- OUTSIDE RECORDS SUMMARY | 2025-04-01 22:17 | XMS_ITS | Encounter Summary ---
Author Organization [facility] Healthcare Address [address] [place], [place] [id number] Care Team Providers Care Sound Ranging Crewmember Name Role Phone Jayjay Fernandes MD Primary Care Provider [phone] Reason for Referral * Consultation (Routine) - Authorized Specialty Diagnoses / Procedures Referred By Contac t Referred To Contact Palliative Care Diagnoses Chronic dyspnea Marilyn Ardon MD [address] [place] [address] Phone: tel: fax: [facility] Outpatient Health - Palliative Care [address] [place] [address] Phone: tel: fax: Referral ID Status Reason Start Date Expiration Date Visits Requested Visits Authorized [id number] Authorized Specialty Services Required 04/06/2025 05/06/2026 1 1 Question Answer Have you personally discussed this referral with the patient or significant other? Yes Reason for Referral Pain and symptom management Please select the performing region: [facility] [[id number]] Please select the performing department: [facility] [[id number]] # of visits: 1 RAFT MACHINIST * Consultation (Routine) - Pending Review Specialty Diagnoses / Procedures Referred By Contac t Referred To Contact Surgery / Colon and Rectal Surgery Diagnoses ABLA (acute blood loss anemia) Marilyn Ardon MD [address] [place] [address] Phone: tel: fax: [facility] (All Locations) Referral ID Status Reason Start Date Expiration Date Visits Requested Visits Authorized [id number] Pending Review Specialty Services Required 04/06/2025 05/06/2026 1 1 Question Answer Please select the performing region: [facility] (All Locations) [[id number]] # of visits: 1 Comments Consideration of partial colectomy for recurrent diverticular bleeding RAFT MACHINIST Reason for Visit * Reason Comments Black or Bloody Stool * Auth/Cert (Routine) Specialty Diagnoses / Procedures Referred By Contac t Referred To Contact Diagnoses Hematochezia Chronic respiratory acidosis (HCC) Diverticulosis Gastrointestinal hemorrhage, unspecified gastrointestinal hemorrhage type Procedures NA Referral ID Status Reason Start Date Expiration Date Visits Re quested Visits Authorized [id number] 1 1 Encounter Details Date Type Department Care Team (Latest Contact Info) Description 04/01/2025 10:17 PM AIRCRAFT MACHINIST - 04/06/2025 10:33 PM AIRCRAFT MACHINIST Hospital Encounter [facility] [address] [place] [address] Aristeo Plunkett Jr., MD [address] [place] [address] Samia Jalloh DO [address] [facility] [id number] [place] [address] Jennifer Burris MD [address] [place] [address] Suyapa Syed MD [address] [place] [address] Marilyn Ardon MD [address] [place] [address] Gastrointestinal hemorrhage, unspecified gastrointestinal hemorrhage type (Primary Dx); Hematochezia; Diverticulosis; Chronic respiratory acidosis (HCC); ABLA (acute blood loss anemia); Chronic dyspnea, improved Discharge Disposition: Discharge to an IP Rehab facility Social History Tobacco Use Types Packs/Day Years Used Date Smoking Tobacco: Former Cigarettes Tobacco Cessation:Counseling Given: Not Answered Personal Safety Answer Date Recorded Have you ever been in or are you currently in a harmful physical or emotional relationship or is someone making you feel afraid or unsafe? Denies 04/01/2025 Sex and Gender Information Value Date Recorded Sex Assigned at Not on file Legal Sex Male 9:52 PM AIRCRAFT MACHINIST Gender Identity Not on file Sexual Orientation Not on file documented as of this encounter Last Filed Vital Signs Vital Sign Reading Time Taken Comments Blood Pressure 148/61 04/06/2025 7:46 PM AIRCRAFT MACHINIST Pulse 102 04/06/2025 9:05 PM AIRCRAFT MACHINIST Temperature 36.8 C (98.2 F) 04/06/2025 7:46 PM AIRCRAFT MACHINIST Respiratory Rate 18 04/06/2025 9:05 PM AIRCRAFT MACHINIST Oxygen Saturation 95% 04/06/2025 9:05 PM AIRCRAFT MACHINIST Inhaled Oxygen Concentration - - Weight 63.5 kg (140 lb 1.6 oz) 04/03/2025 1:35 P M AIRCRAFT MACHINIST Height - - Body Mass Index - - documented in this encounter Functional Status * C.A.G.E. Question Answer Date of Assessment Author Have you ever felt the need to Cut down on your drinking? 0 04/02/2025 9:00 AM AIRCRAFT MACHINIST Gabrielle Lambert RN Have people ever Annoyed yo u by criticizing your drinking? 0 04/02/2025 9:00 AM AIRCRAFT MACHINIST Evelyn Lambert RN Have you ever felt bad or G uilty about your drinking? 0 04/02/2025 9:00 AM Evelyn Conklin RN Have you ever had a drink fi rst thing in the morning to steady your nerves or get rid of a hangover? Eye anesthesia director? 0 04/02/2025 9:00 AM Evelyn Conklin RN CAGE SCORE: 2 or Greater = Positive 0 04/02 9:00 AM AIRCRAFT MACHINIST Evelyn Lambert RN * Difference in Last Two Kennedy Scores Answer Date of Assessment Author 0 04/06/2025 7:59 PM AIRCRAFT MACHINIST Vickey Oleary * Maher Fall Risk Question Answer Date of Assessment Author History of Falling 0 04/06/2025 9:00 AM AIRCRAFT MACHINIST Karrie Hackett RN Secondary Diagnosis 15 04/06/2025 9:00 AM CS Karrie Samano RN Ambulatory Aids 0 04/06/2025 9:00 AM AIRCRAFT MACHINIST Karrie Kwon RN Intravenous Therapy/Heparin/ Saline Lock 20 04/06/2025 9:00 AM AIRCRAFT MACHINIST Karrie Hackett RN Gait/Transferring 10 04/06/2025 9:00 AM AIRCRAFT MACHINIST Karrie Hackett RN Mental Status 0 04/06/2025 9:00 AM AIRCRAFT MACHINIST Karrie Wagner RN Morse Fall Risk Score (Score >= 45 places fall precaution order) 45 04/06/2025 9:00 AM AIRCRAFT MACHINIST Karrie Hackett RN Prior Fall Event (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) None found 04/06/2025 9:00 AM AIRCRAFT MACHINIST Karrie Hackett RN * Kennedy Scale Question Answer Date of Assessment Author Sensory Perceptions 4 04/06/2025 7:59 PM CS T Walker Marie Moisture 3 04/06/2025 7:59 PM AIRCRAFT MACHINIST Walke r, Marie Activity 3 04/06/2025 7:59 PM AIRCRAFT MACHINIST Walke r, Marie Mobility 3 04/06/2025 7:59 PM AIRCRAFT MACHINIST Wal[place] r, Marie Nutrition 3 04/06/2025 7:59 PM AIRCRAFT MACHINIST Wal[place] r, Marie Friction and Shear 2 04/06/2025 7:59 PM AIRCRAFT MACHINIST Marie Oleary Kennedy Scale Score 18 04/06/2025 7:59 PM AIRCRAFT MACHINIST Marie Oleary * Question Answer Date of Assessment Author BP Location Left arm 04/06/2025 7:46 PM AIRCRAFT MACHINIST Mignon Ponce BP Method Automatic 04/06/2025 7:46 PM AIRCRAFT MACHINIST Mignon Ponce MAP (mmHg) 86 04/06/2025 7:46 PM AIRCRAFT MACHINIST Mignon Ponce * Fall Risk Interventions Question Answer Date of Assessment Author All Low Fall Interventions Applied Yes 04/06/2025 9:00 AM Karrie Busby R N All Moderate Fall Interventions Applied No 04/06/2025 9:00 AM AIRCRAFT MACHINIST Karrie Hackett R N All Moderate Fall Risk Interventions EXCEPT: Remain with patient while toileting 04/06/2025 9:00 AM Karrie Busby RN All High Fall Risk Interventions Applied Yes 04/06/2025 9:00 AM Karrie Busby R N Additional Interventions Applied Exit bed on strong/preferred side 04/06/2025 9:00 AM Karrie Busby, GREGORY * B.M.A.T. - Bedside Mobility Assessment Tool for Nurses Question Answer Date of Assessment Author Is patient able to participate in the BMAT? Yes 04/06/2025 9:00 AM Karrie Busby RN BMAT Level Level 3 - Yellow 04/06/2025 9:00 AM Karrie Hackett RN Level 3 Equipment Use assistive device such as cane/walker 04/06/2025 9:00 AM Karrie Busby RN * Pressure Injury Prevention Question Answer Date of Assessment Author Pressure Ulcer Prevention Interventions Keep skin clean and dry (Sensory Perception/Moisture) ;Change pads/diapers as soon as soiling is noted (Moisture);Provide adequate nutrition/fluid intake (Nutrition);Use draw sheet when pulling patient up in bed (Friction & Shear) 04/06/2025 9:00 AM Karrie Busby, GREGORY 2 Nurse Skin Assessment GREGORY Baltazar 04/02/2025 5:34 A M Gina Bull, GREGORY Special Mattress Low air loss 04/05/2025 8:04 PM Charmaine Durant RN * Transdermal Patch Admission Assessment Question Answer Date of Assessment Author Transdermal Patch Assessment on Admission Not Present 04/02/2025 5:34 AM Gina Bull , GREGORY * Fall Risk Assessment Tool - MEDFRAT Question Answer Date of Assessment Author Prior Fall Event (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 (makes patient High risk) No 04/02/2025 3:36 AM Marco Brennan RN History of falling in last 3 months, including since admission 0 04/02/2025 3:36 AM Marco Brennan RN Confusion or disorientation 0 04/02/2025 3: 36 AM Marco Brennan RN Intoxicated or sedated 0 04/02/2025 3:36 AM Marco Brennan RN Impaired gait 0 04/02/2025 3:36 AM Marco Guan RN Mobility assist device used 0 04/02/2025 3: 36 AM Marco Brennan RN Altered elimination 0 04/02/2025 3:36 AM T Marco Reynolds RN Fall risk score: (1-2 low risk), (3-4 moderate risk), (5 or more high risk) 0 04/02/2025 3:36 AM AIRCRAFT MACHINIST Marco Reynolds RN * Integumentary Question Answer Date of Assessment Author Skin Color Appropriate for ethnicity 04/06/2025 9:00 AM AIRCRAFT MACHINIST Karrie Hackett RN Skin Condition/Temp Warm;Dry 04/06/2025 9 :00 AM Karrie Busby RN Skin Integrity Bruising 04/06/2025 7:59 PM AIRCRAFT MACHINIST Marie Oleary Skin Turgor Epidermis thin with loss of subcutaneous tissue 04/06/2025 7:59 PM AIRCRAFT MACHINIST Marie Oleary Integumentary Additional Assessments Yes-Kennedy 04/06/2025 7:59 PM AIRCRAFT MACHINIST Marie Oleary Integumentary (WDL) X 04/06/2025 7 :59 PM AIRCRAFT MACHINIST Marie Oleary Skin Location generalized 04/05/2025 8:04 PM AIRCRAFT MACHINIST Charmaine Lyman RN * Question Answer Date of Assessment Author Affect Anxious/Worried 04/06/2025 5:15 PM AIRCRAFT MACHINIST Karrie Kwon RN Mood Anxious/Worried 04/06/2025 5:15 PM AIRCRAFT MACHINIST Karrie Kwon RN * Question Answer Date of Assessment Author Percent Meal Eaten (%) 25 04/05/2025 8:50 AM AIRCRAFT MACHINIST Mignon Ponce Feeding Level of Assistance Able to feed self 04/06/2025 9:40 AM AIRCRAFT MACHINIST Beverley Dumont Appetite Fair 04/05/2025 8:50 AM Mignon Douglas Percent Snack Eaten (%) 0 04/06/2025 5:00 P M Karrie Busby RN Diet Supplement Name/Percent Consumed % ensure 04/06/2025 5:00 PM Karrie Busby, GREGORY * Question Answer Date of Assessment Author BP Location Left arm 04/06/2025 7:46 PM Mignon Douglas BP Method Automatic 04/06/2025 7:46 PM Mignon Douglas * Fall Risk Interventions Question Answer Date of Assessment Author All Low Fall Interventions Applied Yes 04/06/2025 9:00 AM Karrie Busby R N All Moderate Fall Interventions Applied No 04/06/2025 9:00 AM Karrie Busby R N All Moderate Fall Risk Interventions EXCEPT: Remain with patient while toileting 04/06/2025 9:00 AM Karrie Busby, GREGORY All High Fall Risk Interventions Applied Yes 04/06/2025 9:00 AM Karrie Busby R N Additional Interventions Applied Exit bed on strong/preferred side 04/06/2025 9:00 AM Karrie Busby, GREGORY * ADL Screening Question Answer Date of Assessment Author Patient's Vision Adequate to Safely Complete Daily Activities Yes 04/02/2025 5:34 AM Gina Bull RN Patient's Judgement Adequate to Safely Complete Daily Activities Yes 04/02/2025 5:34 AM Kareen Bull, GREGORY Patient's Memory Adequate to Safely Complete Daily Activities Yes 04/02/2025 5:34 AM Gina Bull , GREGORY Patient Able to Express Needs/Desires Yes 04/02/2025 5:34 AM Gina Bull , GREGORY Dressing Independent 04/02/2025 5:34 AM Gina Bull, GREGORY Grooming Independent 04/02/2025 5:34 AM Gina Bull, GREGORY Feeding Independent 04/02/2025 5:34 AM Gina Bull, GREGORY Bathing Independent 04/02/2025 5:34 AM Gina Bull, GREGORY Toileting Independent 04/02/2025 5:34 AM Gina Bull, GREGORY Walks in Home Independent 04/02/2025 5:34 AM Gina Montano, GREGORY Weakness of Legs None 04/02/2025 5:34 AM Gina Fenton, GREGORY Weakness of Arms/Hands None 04/02/2025 5:34 AM Gina Bull RN Hearing - Right Ear Functional 04/02/2025 5:34 AM CS T Gina Watt RN Hearing - Left Ear Functional 04/02/2025 5:34 AM Gina Bull RN Dominant hand? Right 04/02/2025 5:34 AM Gina Hardin RN Decline in ADLs in last 2 weeks? Yes (Comment) 04/02/2025 5:34 AM Gina Bull RN * Therapy Consults Question Answer Date of Assessment Author PT Evaluation Needed 2 04/02/2025 5:34 AM Gina Buck RN OT Evaluation Needed 2 04/02/2025 5:34 AM Gina Buck RN COASTAL TUG MATE Evaluation Needed 2 04/02/2025 5:34 AM Gina Bull RN * Assistive Devices Question Answer Date of Assessment Author Assistive Devices/DME Cane 04/02/2025 5:34 AM Gina Bull RN * Speech/Swallow Screening Question Answer Date of Assessment Author Currently, does patient have difficulty swallowing; coughing/choking while swallowing, or feels like food is sticking No 04/02/2025 5:34 AM Gina Bull RN In the past two weeks has the patient had changes in speaking or ability to comprehend conversation No 04/02/2025 5:34 AM Gina Bull RN Currently, does patient require thickened liquids or dysphagia diet No 04/02/2025 5:34 AM Gina Bull RN Patient is in need of COASTAL TUG MATE Order: No COASTAL TUG MATE order needed from this assessment 04/02/2025 5:34 AM Gina Bull RN * Hygiene Question Answer Date of Assessment Author Hygiene Back rub 04/05/2025 11:00 AM AIRCRAFT MACHINIST Mignon Ponce Hygiene Level of Assistance Moderate assist 04/06/2025 12:00 PM Beverley Melgar Toileting: Assistance with Bedside commode 04/05/2025 8:00 PM Charmaine Gilliam RN Toileting: Level of assistance Minimal 04/05/2025 8:00 PM Charmaine Gilliam RN Reason not bathed/showered Patient/family refused bath/shower 04/02/2025 9:10 PM AIRCRAFT MACHINIST Turner Vidal Perineal Care Mónica Care 2025 8:39 PM AIRCRAFT MACHINIST Audrey Sousa RN Linens Absorbent pad changed;Draw sheet changed;Extra [place] 04/05/2025 11:00 AM AIRCRAFT MACHINIST Mignon Ponce Bath Bathed/showered with chlorhexidine (CHG) 04/06/2025 12:00 PM AIRCRAFT MACHINIST Beverley Dumont documented as of this encounter Mental Status * Question Answer Entry Date Author Orientation Oriented X4 (person, place, time, situation) 04/06/2025 1:19 PM AIRCRAFT MACHINIST Cande Collins, PT * Question Answer Entry Date Author Level of Consciousness Alert;Awake 04/06/2025 9:00 AM AIRCRAFT MACHINIST Karrie Hackett RN Neuro (WDL) X 04/06/2025 7:59 PM Marie Koehler Other Neuro Symptoms Fatigue 04/06/2025 7:59 PM Marie Joe * Short Blessed Test Question Answer Entry Date Author What year is it now? 0 04/03/2025 9:19 AM Anaid Rao OT What month is it now? 0 04/03/2025 9:19 AM Anaid Rao OT Without looking at the clock, tell me what time it is 0 04/03/2025 9:19 AM Anaid Rao OT Count aloud backwards from 20-1 0 04/03/2025 9:19 AM Anaid Rao OT Say the months of the year backwards in reverse order 2 04/03/2025 9:19 AM Anaid Rao OT Repeat the name and address I asked you to remember 4 04/03/2025 9:19 AM Anaid Rao OT Repeat this name and address after me Rubio Brandon [address] [place] [address] 04/03/2025 9:19 AM Anaid Rao OT Short Blessed Total Score 6 04/03/2025 9:19 AM Anaid Rao OT documented in this encounter Discharge Summaries * Marilyn Ardon MD - 04/06/2025 2:19 PM CST Inpatient Discharge Summary BRIEF OVERVIEW Admitting Provider: Aristeo Plunkett Jr., MD Discharge Provider: Marilyn Ardon MD Primary Care Physician at Discharge: Jayjay Fernandes MD [phone] Admission Date: 04/01/2025 Discharge Date: 04/06/2025 Admission Location: [facility] Problems/Diagnoses: Principal Problem: ABLA (acute blood loss anemia) Active Problems: History of CAD (coronary artery disease) Primary hypertension Chronic HFrEF (heart failure with reduced ejection fraction) (HCC) History of anxiety Chronic respiratory failure with hypoxia (HCC) Goals of care, counseling/discussion Lower GI bleed History of diverticulosis History of ventricular tachycardia History of COPD History of BPH Chronic dyspnea, improved Urinary retention Resolved Problems: FELICITY (acute kidney injury) DETAILS OF HOSPITAL STAY Presenting Problem/History of Present Illness: 84M w/ HFrEF (EF 35 in 2024), CAD s/p CABG, VT s/p ICD, COPD w/ chronic resp failure on 3L O2, CVA,recurrent GIB p/w hematochezia Not known to our system. Recurrent GIBs since 2019. He was hospitalized in July at OSH for GIB in setting of c diff infection. He did okay until 1 week ago when he developed BRBPR again and went to [facility] for 4 days. Records not available for review on care everywehre and the paper records he bought is patient information and gives no medical info but patient is quite a good historian. He said he received no transfusions and no scopes done b/c he had a flex sig in 06/2024 (which was limited by prep but no bleeding noted). He said BRBPR got better in the hospital but returned w hen he discharged home yesterday. Which is why he's here today. Says he has both melena and BRBPR. Denies abd pain, N/V. Was on levaquin for UTI last week vs COPD exacerbation and feel slike he has had a bit of diarrhea too. In the ED: - vitals were: AF, HR 100, lowest BP 90/50, on baseline O2 - labs remarkable for: Cr 1.2 (Cr 0.9 in 07/2024), WBC 10, Hgb 7.7 (Hgb 11 in 08/2024 ), coags fine, plt fine, - imaging: CT ap w/ focus of hyperattenuation along wall of sigmoid likely mucosal hyperenhancementand less likely GIB - interventions: PPI IV Hospital Course: #ABLA (acute blood loss anemia) #Lower GI bleed #History of diverticulosis Patient presented with recurrent painless hematochezia. Has had this issue since almost 2018. Last eval was with sigmoidoscopy in jun this year but prep was sub optimal however no active bleeding wasseen. Was also recently admitted at OSH (no scopes or transfusions over there) and discharged few days before presenting to [facility] this admission. Last colonoscopy was 2017. He is not on AC but only take s baby ASA for secondary prevention. Here, his Hgb was found to be 7.7 from baseline of 10[address] A/P W WO was done on admission no active bleeding was seen but showed extensive diverticulosis. During his hospital course, his hgb remained stable in the 7-8 range and did not have recurrence of bleed. GI consulted, considered colonoscopy but was deferred because Hgb continued to improve and hematochezia improved. However, recommended CRS referral on discharge for surgical options (partial colectomy)which has been placed. Discussed with patient that if he bleeds again, would likely recommend stopping ASA (risk-benefit discussion - has CAD and history of stroke) #History of BPH, urinary retention Continued home finasteride and flomax. Patient had trouble with urinary retention starting 04/04 requiring multiple straight cath. Malone was inserted and patient will need repeat void trial at his rehab facility. If fails again, will need outpatient urology appointment for assessment. #Chronic respiratory failure with hypoxia #History of COPD #Chronic dyspnea, improved On 3 L O2 at baseline. No PFTs in chart. No signs of acute exacerbation but he has chronic dyspnea.On Pulmicort and albuterol at home. CXR with hyperinflated lungs from emphysema. Suspect his COPD is significantly advance given thin body habitus and pursed lip breathing technique. No other explanation of this dyspnea (no fluid overload, no PNA, no PE suspected) but anemia could be further contributing to the dyspnea. He was managed with his usual home nebulizers (duo neb and pulmicort). Qualification for BiPAP was discussed with patient but he declined as he stated he had tried it before anddid not tolerate. He was Started on roxanol which helped significantly in his dyspnea, he reported feeling like a new person. Risk and benefit was discussed regarding continuing it as a PRN and was counseled on side effects including sedation, constipation, risk of dependence. Palliative care referral at discharge #Chronic HFrEF (heart failure with reduced ejection fraction) OSH TTE 07/2024 w/ EF 35-40%. Home meds include coreg and lasix 40 BID. Remained euvolumic without signs of exacerbation. CXR on 04/02 without edema. He was continued on his home lasix to prevent fluid overload, withholding parameters for low BP, but his home coreg was hild due to borderline BP. Resumed at discharge #History of CAD (coronary artery disease) #History of ventricular tachycardia S/p CABG and ICD. Continued home asa and statin. #History of anxiety Continued home xanax and zoloft. Active Issues Requiring Follow-up: -urinary retention -recurrent GI bleed Test Results Pending at Discharge: Pending Labs Order Current Status Ferritin In process Heparin anti factor Xa activity In process Iron profile w/ IBC In process Magnesium In process Urine culture Urine In process Discharge Details Physical Exam at Discharge: Discharge Condition: good Pulse: 99 Resp: 20 BP: 100/55 Temp: 36.8 ??C (98.2 ??F) Weight: 63.5 kg (140 lb 1.6 oz) Pertinent Exam Findings at Discharge: full code Discharge Disposition: Patient will be discharged to:inpatient rehab Code Status at Discharge: DNR/DNI Discharge Instructions: Activity Instructions Discharge activity: Resume normal activity Diet Instructions Adult Discharge Diet Diet Type: Return to previous diet Other Instructions Call provider for: Call provider for: severe uncontrolled pain Special Instructions Discharge Medications: Current Medications TAKE these medications acetaminophen 500 mg capsule Take 2 capsules (1,000 mg total) by mouth every 6 (six) hours as needed for pain, headaches or fever For: fever, pain ALPRAZolam 0.25 mg tablet Take 1 tablet (0.25 mg total) by mouth nightly as needed for anxiety Commonly known as: XANAX aspirin 81 mg enteric coated tablet Take 1 tablet (81 mg total) by mouth daily Start taking on: April 07, 2025 atorvastatin 40 mg tablet Take 1 tablet (40 mg total) by mouth nightly Commonly known as: LIPITOR budesonide 0.25 mg/2 mL nebulizer solution Commonly known as: PULMICORT carvediloL 3.125 mg tablet Take 1 tablet (3.125 mg total) by mouth 2 (two) times a day Commonly known as: COREG finasteride 5 mg tablet Take 1 tablet (5 mg total) by mouth daily Commonly known as: PROSCAR furosemide 40 mg tablet Take 1 tablet (40 mg total) by mouth 2 (two) times a day Commonly known as: LASIX ipratropium-albuteroL 0.5-2.5 mg/3 mL nebulizer solution INHALE 3 ML 4 TIMES A DAY BY NEBULIZATION ROUTE NEEDED FOR 10 DAYS. Commonly known as: DUO-NEB lidocaine 2 % jelly in applicator Insert 5 mL (100 mg total) into the urethra 2 (two) times a day Commonly known as: GLYDO morphine 2 mg/mL solution Take 2.5 mL (5 mg total) by mouth every 4 (four) hours as needed (dyspnea) pantoprazole DR 40 mg EC tablet Take 1 tablet (40 mg total) by mouth daily For: GI Bleed Commonly known as: PROTONIX polyethylene glycol 17 gram packet Take 1 packet (17 g total) by mouth daily as needed for constipation For: constipation Commonly known as: MIRALAX sertraline 50 mg tablet Take 1 tablet (50 mg total) by mouth 2 (two) times a day Commonly known as: ZOLOFT tamsulosin 0.4 mg extended release capsule Take 2 tablets by mouth daily Commonly known as: FLOMAX Outpatient Follow-Up: RAFT MACHINIST documented in this encounter Medications at Time of Discharge ALPRAZolam (XANAX) 0.25 mg tablet Take 1 tablet (0.25 mg total) by mouth nightly as needed for anxiety 02/28/2025 atorvastatin (LIPITOR) 40 mg tablet Take 1 tablet (40 mg total) by mouth nightly 02/13/2016 budesonide (PULMICORT) 0.25 mg/2 mL nebulizer solution 02/14/2021 carvediloL (COREG) 3.125 mg tablet Take 1 tablet (3.125 mg total) by mouth 2 (two) times a day 06/14/2019 furosemide (LASIX) 40 mg tablet Take 1 tablet (40 mg total) by mouth 2 (two) times a day 01/07/2024 ipratropium-albu teroL (DUO-NEB) 0.5-2.5 mg/3 mL nebulizer solution INHALE 3 ML 4 TIMES A DAY BY NEBULIZATION ROUTE NEEDED FOR 10 DAYS. 01/26/2025 sertraline (ZOLOFT) 50 mg tablet Take 1 tablet (50 mg total) by mouth 2 (two) times a day 02/28/2020 tamsulosin (FLOMAX) 0.4 mg extended release capsule Take 2 tablets by mouth daily 06/21/2015 acetaminophen 500 mg capsuleIndicatio ns:Fever,Pain Take 2 capsules (1,000 mg total) by mouth every 6 (six) hours as needed for pain, headaches or fever 04/06/2025 aspirin 81 mg enteric coated tablet Take 1 tablet (81 mg total) by mouth daily 04/07/2025 finasteride (PROSCAR) 5 mg tablet Take 1 tablet (5 mg total) by mouth daily lidocaine (GLYDO) 2 % jelly in applicator Insert 5 mL (100 mg total) into the urethra 2 (two) times a day 04/06/2025 morphine solution 10 mg/5 mL Take 2.5 mL (5 mg total) by mouth every 4 (four) hours as needed (dyspnea) 04/06/[address] (PROTONIX) 40 mg EC tabletIndication s:GI Bleed Take 1 tablet (40 mg total) by mouth daily 04/06/2025 polyethylene glycol (MIRALAX) 17 gram packetIndication s:constipation Take 1 packet (17 g total) by mouth daily as needed for constipation 04/06/2025 documented as of this encounter Ordered Prescriptions Prescription Sig Dispense Quantity Refills Last Filled Start Date End Date morphine solution 10 mg/5 mL Take 2.5 mL (5 mg total) by mouth every 4 (four) hours as needed (dyspnea) 04/06/2025 polyethylene glycol (MIRALAX) 17 gram packetIndications :constipation Take 1 packet (17 g total) by mouth daily as needed for constipation 04/06/[address] (PROTONIX) 40 mg EC tabletIndications :GI Bleed Take 1 tablet (40 mg total) by mouth daily 04/06/2025 lidocaine (GLYDO) 2 % jelly in applicator Insert 5 mL (100 mg total) into the urethra 2 (two) times a day 04/06/2025 aspirin 81 mg enteric coated tablet Take 1 tablet (81 mg total) by mouth daily 04/07/2025 acetaminophen 500 mg capsuleIndication s:Fever,Pain Take 2 capsules (1,000 mg total) by mouth every 6 (six) hours as needed for pain, headaches or fever 04/06/2025 documented in this encounter Discharge Disposition Disposition Code Departure Means Destination Comment s Discharge to an Rehab facility documented in this encounter Progress Notes * Suzy Crocker, GREGORY - 04/06/2025 2:41 PM CST 04/06/25 1441 Discharge Summary Discharge Disposition Other (Comment) ([facility]) Recommended Discharge Level of Care Other (Comment) Actual Discharge Level of Care Other (Comment) Post Acute Care Plan Post Acute Care Needs Identified Yes Home Care Services N/A OP Services N/A DME N/A Post Acute Care Facility Yes Referral Status Accepted Accepted Post Acute Care Location and Contact [facility] report # [phone] Accepted Post Acute Care Discharge Additional Assistance Does the patient need discharge transport arranged? Yes Type of Transportation Ambulance/EMS Type of Ambulance BLS Has PCS/CMN been completed? Yes Has discharge transport been arranged? Yes Details of Transportation [facility] D/C Transport Anticipated Date 04/06/25 D/C Transport Anticipated Time 1800 Discharge Transportation Communication Mode of transport has been discussed with the patient/family. All are agreeable to the plan and understand their responsibilities to ensure the safe transfer. No further CM/SW intervention is anticipated at this time. Post Discharge Care Provider Post Discharge Care Plan DC Summary has been faxed to next level of care provider (see Follow Up Providers) Per medical team, patient is medically stable for discharge at this time. Patient has been acceptedto [facility]. CM spoke with the patient/family, admissions, medical team, and RN regarding discharge planning, and all are agreeable to discharge. Post-acute care transfer packet completed and will be sent with the patient. RN provided with report number to nurses station. Room # not provided by facility. Mode of transport has been discussed with the patient/family, MD, nursing staff. All are agreeable to plan and understand their responsibilities to ensure the safe transfer. RAFT MACHINIST * Cande Collins, PT - 04/06/2025 1:19 PM CST Physical Therapy Physical Therapy Evaluation Note NOTE: This is a summary note of the rouse components of the evaluation session. For full details, review chart for all flowsheets documented on by this physical therapy clinician on this date. Vital signs are documented in the vital signs flowsheet. For questions, please review the treatment team and contact the PT or HI TEACHER currently assigned to this patient. If a physical therapy clinician is not assigned to this patient, please call [phone]. 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 Precautions Precautions Fall risk;CHRISTINE Precaution Comments verbally reviewed above precautions with patient, patient acknowledged understanding Home Living Type of Home House Home Layout One level Home Access Stairs to enter with rails Entrance Stairs-Rails Both Entrance Stairs-Number of Steps 5 Home Mobility Equipment-Available Other (Comment) (walking stick) Home Mobility Equipment-Currently Using Other (Comment) (walking stick) Prior Function Level of [place] Independent functional transfers;Independent with ambulation Lives With Alone Receives Help From- Available Friend(s);Neighbor;multimedia project manager Receives Help From-Currently Friend(s);Neighbor;multimedia project manager Fall within the last 6 months No Activity Tolerance Activity Tolerance Comments Ruben: hard Pain Assessment Pain Assessment 0-10 Pain Score 0 - No pain Cognition Arousal/Alertness Alert;Appropriate responses to stimuli Orientation Oriented X4 (person, place, time, situation) Following Commands Follows all commands and directions without difficulty Safety Judgment Good awareness of safety precautions Sensation Light Touch Partial deficits in the RLE;Partial deficits in the LLE Sensation Comments skin intact to BLE below the knees, except for a scab on R liao Balance Tests Balance Tests Yes Erickson Balance Scale 1. Sitting to Standing 1 2. Standing Unsupported 0 3. Sitting with Back Unsupported but Feet Supported on Floor or on a Stool 1 4. Standing to Sitting 0 5. Transfers 1 6. Standing Unsupported with Eyes Closed 0 7. Standing Unsupported with Feet Together 0 8. Reach Forward with Outstretched Arm While Standing 0 9. Merchandise Appraiser Object from Floor from a Standing Position 0 10. Turning to Look Behind Over Left and Right Shoulders While Standing 0 11. Turn [address] Altern[address] Foot on Step or Stool While Standing Unsupported 0 13. Standing Unsupported One Foot in Front 0 14. Standing on One Leg 0 Erickson Balance Score 3 Balance Balance Yes Static Sitting Balance Static Sitting-Balance Support Bilateral upper extremity supported Static Sitting-Sitting Surface Bed Static Sitting-Level of Assistance Minimum assistance;Close supervision Static Sitting-Comment/# of Minutes min A initially for balance with walking stick, then SBA for safety Static Standing Balance Static Standing-Balance Support Bilateral upper extremity supported (ww used) Static Standing-Standing Surface Floor Static Standing-Level of Assistance Close supervision Static Standing-Comment/# of Minutes for safety Bed Mobility Bed Mobility Yes Bed Mobility 1 Bed Mobility From 1 Supine (HOB up 30) Bed Mobility Type 1 To and from Bed Mobility to 1 Edge of bed Level of Assistance 1 Standby Assist Bed Mobility Comments 1 fo safety Transfers Transfer Yes Transfer 1 Transfer From 1 Sit Transfer Type 1 To and from Transfer to 1 Stand Technique 1 Sit to stand;Stand to sit Transfer Device 1 Other (comments);Wheeled walker (walking stick) Transfer Level of Assistance 1 Minimum Assist Trials/Comments 1 min A for balance and force production; pt shaking more with use of walking stick, better with ww Ambulation Ambulation Yes Ambulation 1 Distance (ft) 1 14 Surface 1 Level tile Device 1 Wheeled walker Assistance 1 Minimum Assist Gait: Requires assist with 1 Maintaining balance Gait: Requires verbal cues to 1 Use assistive device safely;Pace activity Gait Deviations 1 Base of support - decreased;Latasha - decreased;Posture - flexed;Step length - decreased;Heel strike - decreased Ambulation Comments 1 Perfomed with increased effort and with sob Stairs Stairs No RUE Assessment RUE Assessment X RUE Comments partial amputation of R fingers LUE Assessment LUE Assessment WFL RLE Assessment RLE Assessment WFL LLE Assessment LLE Assessment WFL Basic Mobility - 6 Click How much difficulty does the patient have: Turning over in bed 3 How much difficulty does the patient currently have: Sitting down and standing up from a chair witharms? 3 How much difficulty does the patient have: Moving from lying on back to sitting on the side of the bed? 3 How much difficulty does the patient have: Moving to and from a bed to a chair including wheelchair? 3 How much help does the patient currently need: Walk in hospital room? 3 How much help from another person does the patient currently need: Climbing 3-5 steps with a railing? 3 Total 6 Click Score (range 6-24) 18 Score Interpretation 41.05 Safe Environment End of Therapy Session Safe Environment End of Therapy Session Call light within reach;Overbed table within reach;Patient left sitting in bed with head of bed elevated Assessment Prognosis Good Problem List Reduced mobility;Gait deviations;Impaired balance Problem List Comments PT Diagnosis:Hematochezia results in above listed activity deficits and impairments which prevent full participation in home and community mobility. Barriers to Discharge Current Mobility Status Recommendation/Plan PT Recommendation/Plan Inpatient Rehab Facility Patient is motivated to actively participate in therapy 3hr/day, 5days/wk (900min) Yes Final discharge destination post acute care will be community based (home, independent living, assisted living) Yes Patient requires more than one skilled therapy discipline Yes Patient requires at least minimal assistance with toileting/toilet transfers, transfers AND locomotion (amb or w/c mobility) Yes Patient has cognitive function to actively participate and benefit from intensive rehab Yes Recommend Inpatient Rehab/Acute Rehab due to Ability to actively participate in intensive therapy 3hours/day, 5 days/week or 900 minutes per week;Highly motivated to participate in therapy;Impaired ability to complete functional mobility;Likely to return to the community at discharge with support system in place;Requires greater than 25% physical assistance with most mobility tasks;Requires multiple therapy disciplines to address functional deficits;Patient and caregiver require specialized skilled training due to new level of function/diagnosis;Requires skilled therapy interventions to address neurological deficits Patient at high risk for Falls;Injury due to reduced functional status;Injury at home as patient has not returned to prior level of function;Injury due to balance deficits;Developing impaired skin integrity PT Recommendation/Plan Comments Pt agreeable with PT POC. PT Frequency during current admission 3-5x/wk Treatment/Interventions during current admission Balance Training;Bed mobility;Endurance training;Equipment eval/education;Functional activity;Functional transfer training;Gait training;Neuromuscularre- education;Parent/caregiver training and education;Stair training;Strengthening;Therapeutic activity;Therapeutic exercise;Transfer training PT Equipment Recommended None PT - OK to Discharge Yes (to IRF) PT Evaluation Complete Yes PT Time Calculation PT Start Time 1319 PT Stop Time 1358 PT Time Calculation (min) 39 min Multi-Disciplinary Problems (from Physical Therapy) Active Problems Problem: Mobility Start Date: 04/06/25 Goal Start Date Expected End Date End Date LTG - Patient will demonstrate functional mobility with the following level of assist: mod indep 04/06/25 06/04/25 -- Goal Start Date Expected End Date End Date STG - Patient will ambulate with LRD 150 ft with SBA 04/06/25 04/13/25 -- Problem: Transfers Start Date: 04/06/25 Goal Start Date Expected End Date End Date STG - Patient to transfer to and from sit to supine SBA 04/06/25 04/13/25 -- Goal Start Date Expected End Date End Date STG - Patient will transfer sit to and from stand SBA 04/06/25 04/13/25 -- RAFT MACHINIST * Yuliet Jang OT - 04/06/2025 10:49 AM CST Occupational Therapy Progress Note NOTE: This is a summary note of the rouse components of the treatment session. For full details, review chart for all flowsheets documented on by this occupational therapy clinician on this date. Vitalsigns documented in vital signs flowsheet. Care plan progress documented in Care Plan Activity. For questions, please review the treatment team and contact the occupational therapist currently assigned to this patient. If an occupational therapist is not assigned to this patient, please call [phone]. 04/06/25 0987 General Session Type Treatment OT Received On 04/06/25 Safe Environment Patient found in supine;Gait belt utilized for all out of bed mobility Subjective Agreeable to Therapy Family/Caregiver Present No Precautions Precautions Fall risk;CHRISTINE Weight Bearing Restrictions No Precaution Comments Discussed safe mobility beginning of session. Pain Assessment Pain Assessment No/denies pain Cognition Arousal/Alertness Alert;Appropriate responses to stimuli Attention Span Appears intact Memory Appears intact Current communication Appears Intact Orientation Oriented X4 (person, place, time, situation) Following Commands Follows all commands and directions without difficulty Safety Judgment Good awareness of safety precautions Awareness of Errors Good awareness of errors made Insight Fully aware of deficits Problem Solving Able to problem solve independently Compliance/Behavior Easy to engage Perseveration Not present Cognitive Tests Cognitive Tests No Balance Tests Balance Tests No Balance Balance Yes Static Sitting Balance Static Sitting-Balance Support Bilateral upper extremity supported;Feet supported Static Sitting-Sitting Surface Bed Static Sitting-Level of Assistance Distant supervision Static Sitting-Comment/# of Minutes for safety Static Standing Balance Static Standing-Balance Support Unilateral upper extremity supported Static Standing-Standing Surface Floor Static Standing-Level of Assistance Minimum assistance Static Standing-Comment/# of Minutes for steadying ADL ADLS (WDL) X LE Dressing LE Dressing: Where assessed Supine, bed LE Dressing: Level of assistance Maximum Assist LE Dressing: Assistance with Don/doff R sock;Don/doff L sock;Thread RLE into pants;Thread LLE into pants;Pull up over hips;Fasteners;Balance;Safety Bed Mobility Bed Mobility Yes Bed Mobility 1 Bed Mobility From 1 Supine Bed Mobility Type 1 To and from Bed Mobility to 1 Edge of bed Level of Assistance 1 Standby Assist Bed Mobility Comments 1 for safety Transfers Transfer Yes Transfer 1 Transfer From 1 Sit Transfer Type 1 To and from Transfer to 1 Stand Technique 1 Sit to stand;Stand to sit Transfer Device 1 Other (comments) (walking stick) Transfer Level of Assistance 1 Minimum Assist Trials/Comments 1 for force production and balance Other Comments Comments Patient stood bedside approx. 3 minutes, cued on PLB technique. Deferred further mobility this date 06/06 SOB. Patient would benefit from continued OT services to address functional mobility and ADL task IND. Daily Activity - 6 Clicks Putting on and taking off regular lower body clothing 2 Bathing 2 Toileting 2 Putting on and taking off upper body clothing 3 Personal Grooming 2 Eating Meals 4 Total Score (range 6-24) 15 Score Interpretation 34.69 Safe Environment End of Therapy Session Safe Environment End of Therapy Session Patient left supine in bed;Call light within reach;Overbed table within reach;Bed in lowest position with wheels locked;Bed rails up per protocol;Bed alarm in place and activated Assessment Problem List Decreased mobility;Decreased endurance;Decreased balance;Decreased functional mobility;Decreased ADL independence;Decreased IADL independence Barriers to Discharge Current Mobility Status;Current ADL Status;Decreased caregiver support Barrier Comments fall risk Plan Plan Continue with current plan;If this is the last note, consider this the discharge summary Recommendation/Plan OT Recommendation Inpatient Rehab Facility Patient is motivated to actively participate in therapy 3hr/day, 5days/wk (900min) Yes Final discharge destination post acute care will be community based (home, independent living, assisted living) Yes Patient requires more than one skilled therapy discipline Yes Patient requires at least minimal assistance with toileting/toilet transfers, transfers AND locomotion (amb or w/c mobility) Yes Patient has cognitive function to actively participate and benefit from intensive rehab Yes Recommend Inpatient Rehab/Acute Rehab due to Ability to actively participate in intensive therapy 3hours/day, 5 days/week or 900 minutes per week;Highly motivated to participate in therapy;Not at baseline due to impaired ability to complete ADLs;Impaired ability to complete functional mobility;Likely to return to the community at discharge with support system in place;Requires multiple therapy disciplines to address functional deficits;Patient and caregiver require specialized skilled trainingdue to new level of function/diagnosis;Requires greater than 25% physical assistance with most mobility tasks;Requires greater than 25% physical assistance with most ADL tasks Patient at high risk for Falls;Readmission;Injury due to decreased ability to care for self;Injury due to reduced functional status;Injury due to balance deficits;Injury at home as patient has not returned to prior level of function OT Frequency during current admission 5-7x/wk Treatment/Interventions during current admission ADL/IADL retraining;Balance Training;Compensatory technique education;Endurance training;Functional activity;Functional mobility training;Functional transfer training Progress during current admission Slow progress, medical status limitations OT - Next Appointment 04/07/25 OT Time Calculation OT Start Time 1049 OT Stop Time 1112 OT Time Calculation (min) 23 min Multi-Disciplinary Problems (from Occupational Therapy) Active Problems Problem: Dressings Lower Extremities Start Date: 04/03/25 Goal Start Date Expected End Date End Date STG - Patient to complete lower body dressing with min A. 04/03/25 04/17/25 -- Problem: Grooming Start Date: 04/03/25 Goal Start Date Expected End Date End Date STG - Patient will complete grooming standing at sink with min A. 04/03/25 04/17/25 -- Problem: Transfers Start Date: 04/03/25 Goal Start Date Expected End Date End Date STG - Patient will perform toilet transfer to standard toilet with min A. 04/03/25 04/17/25 -- Problem: OT Misc Start Date: 04/03/25 Goal Start Date Expected End Date End Date OT LTG - Patient will perform all ADLs with SPV. 04/03/25 04/24/25 -- RAFT MACHINIST * Marilyn Ardon MD - 04/06/2025 10:42 AM CST Daily Progress Note Division of Hospital Medicine Name: Chip Emery : 1940 Today's Date: April 06, 2025 Age: 85 y.o. male Admission: 04/01/2025 Bed: [id number] LOS: 4 days Subjective Interval History Continued to have urinary retention overnight after a couple straight caths so Malone placed. Complains of pain associated with the Malone. Otherwise feeling ok. Denies any melena or hematochezia Objective Scheduled Meds PRN Meds Infusions aspirin, 81 mg, oral, Daily atorvastatin, 40 mg, oral, Nightly budesonide, 0.5 mg, nebulization, BID (RT) ferric gluconate, 125 mg of elemental iron, intravenous, Daily finasteride, 5 mg, oral, Daily furosemide, 40 mg, oral, BID DIURETIC ipratropium-albuteroL, 3 mL, nebulization, Q6H While awake (RT) pantoprazole, 40 mg, intravenous, BID sertraline, 50 mg, oral, BID tamsulosin, 0.4 mg, oral, Daily with dinner acetaminophen, 1,000 mg, oral, Q6H PRN ALPRAZolam, 0.25 mg, oral, BID PRN ipratropium-albuteroL, 3 mL, nebulization, Q4H PRN (RT) morphine, 5 mg, oral, Q4H PRN ondansetron, 4 mg, intravenous, Q6H PRN polyethylene glycol, 17 g, oral, Daily PRN ramelteon, 8 mg, oral, Nightly PRN Vitals Most Recent Vitals: T 36.8 ??C (98.2 ??F), HR 84, BP 146/50, RR 16, SpO2 94 %. 24hr Min/Max: Temp Min: 36.5 ??C (97.7 ??F) Max: 36.8 ??C (98.2 ??F) Pulse Min: 74 Max: 91 BP Min: 111/44 Max: 146/50 Resp Min: 16 Max: 20 SpO2 Min: 92 % Max: 100 % Intake/Output Summary (Last 24 hours) at 04/06/2025 1042 Last data filed at 04/06/2025 0420 Gross per 24 hour Intake -- Output 2700 ml Net -2700 ml Physical Exam General: NAD HEENT: sclera anicteric Lungs: CTAB, on 3L O2 CV: RRR Abd: S/NT/ND +BS Neuro: nonfocal Lines, Drains, Airways Peripheral IV 04/05/25 20 G Anterior;Left;Upper Arm (Active) Urethral Catheter (Active) Labs/Diagnostic Review Na 143 Cl 98 BUN 17 K 3.2 CO2 38 Cr 1.08 Mg 2.0, G AST - ALT - Alk Phos - Ca 8.1 TP - Alb - Total Bili: - Direct Bili: - \ Hgb 8.0 / WBC 15.79 -------- Plt 293 / MCV 98.4 \ INR - (Labs above are the most recent result obtained in the last 24 hours. For additional labs/trends, see Epic.) I have reviewed the laboratory results. Imaging Review No results found. Assessment & Plan ABLA (acute blood loss anemia) Lower GI bleed History of diverticulosis Patient presented with recurrent painless hematochezia. Has had this issue since almost 2018. Last eval was with sigmoidoscopy in Jun this year but prep was sub optimal however no active bleeding wasseen. Was also recently admitted at OSH (no scopes or transfusions over there) and discharged few days before presenting to [facility]. Last colonoscopy was 2017. He is not on AC but only takes baby asa for secondary prevention. Here, his hgb was found to be 7.7 from baseline of 10. CT A/P W WO was done on admission no active bleeding was seen but showed extensive diverticulosis. GI consulted. Recent Labs Lab Units 04/06/25 0859 04/05/25 2351 04/05/25 0659 04/04/25 2100 04/04/25 0949 HEMOGLOBIN g/dL 8.0* 7.1* 7.8* 7.5* 7.9* Plan: - GI deferred colonoscopy given improvement in Hgb, no further hematochezia - Arrange outpatient CRS referral for candidacy of partial colectomy option, although patient does not seem to like the idea of surgery - PPI BID - Transfuse for Hgb < 7 - If bleeding recurs, obtain stat CTA Chronic respiratory failure with hypoxia (HCC) History of COPD Chronic dyspnea, improved On 3 L O2 at baseline. No PFTs in chart. No signs of acute exacerbation but he has chronic dyspnea.On Pulmicort and albuterol at home. CXR with hyperinflated lungs from emphysema. Suspect his COPD is significantly advance given thin body habitus and pursed lip breathing technique. No other explanation of this dyspnea (no fluid overload currently, no PNA, no PE suspected) but anemia could be further contributing to the dyspnea. Plan: - Continue duonebz ATC and PRN - Continue pulmicort, diuretic (withholding parameters) - Discussed qualification for BiPAP but he declined as he stated he had tried it before and did nottolerate - Started on roxanol which helped significantly in his dyspnea, he reported feeling like a new person. We discussed risk and benefit if continuing it as a PRN and I counseled on side effects including sedation, constipation, risk of dependence. He would benefit from palliative care referral on discharge. Chronic HFrEF (heart failure with reduced ejection fraction) ([facility]) OSH TTE 07/2024 w/ EF 35-40%. Home meds include coreg and lasix 40 BID. Appears euvolumic without signs of exacerbation. CXR on 04/02 without edema. Plan: - Cont home lasix to prevent fluid overload, withholding parameters for low BP, his BP has been tolerating well so far - Keep holding coreg for now, monitor BP and could resume later on based on trend History of CAD (coronary artery disease) History of ventricular tachycardia - S/p CABG and ICD. Cont home asa and statin. History of anxiety - Resuming home xanax and zoloft. History of BPH Urinary retention - Cont home finasteride and flomax. - New urinary retention on 04/05, with discomfort. Bladder scan 600+. Persistent retention after straight cath - Malone placed last night - Will likely need repeat void trial at rehab Goals of care, counseling/discussion No family members so POJohn is friend, Wei Tejada . - Code status was confirmed to be DNR/DNI on 04/02 by admitting physician Reduced mobility. Treatment as per PT or OT with increased nursing care. Hypokalemia. Supplement and recheck. Code status : LIMITED - No CPR Diet : Adult Diet Regular PT/OT Dispo Rec : / OT Recommendation: Inpatient Rehab Facility Update Discharge Readiness Information Marilyn Ardon MD RAFT MACHINIST * Shania Yusuf, LAND SURVEYOR ASSISTANT - 04/05/2025 6:02 PM CST Respiratory Medication Plan Situation: Patient is currently scheduled to receive Nebulized Duo-Neb (Albuterol/Ipratropium), Q6 While Awake. Pulmocort BID Home Medications: Current Outpatient Medications Medication Instructions ALPRAZolam (XANAX) 0.25 mg, oral, Nightly PRN atorvastatin (LIPITOR) 40 mg, Nightly budesonide (PULMICORT) 0.25 mg/2 mL nebulizer solution carvediloL (COREG) 3.125 mg, 2 times daily famotidine (PEPCID) 20 mg, oral, 2 times daily finasteride (PROSCAR) 5 mg, oral, Daily furosemide (LASIX) 40 mg, 2 times daily ipratropium-albuteroL (DUO-NEB) 0.5-2.5 mg/3 mL nebulizer solution INHALE 3 ML 4 TIMES A DAY BY NEBULIZATION ROUTE NEEDED FOR 10 DAYS. potassium chloride ER 20 mEq CR tablet sertraline (ZOLOFT) 50 mg, 2 times daily tamsulosin (FLOMAX) 0.4 mg extended release capsule 2 tablets, Daily Bronchodilator Assessment Score: Pulmonary Status Surgical Status Chest X-Ray Resp. Pattern Mental Status Cough Breath Sounds Level of Activity O2 Requirement Oxygen therapy: SpO2 98 % O2 Therapy Supplemental oxygen Patient Vitals: Pulse Resp. Rate Respiratory Assessment: Resp. Effort Unlabored Depth & Rhythm Regular Chest Assessment Symmetrical BRONCHODILATOR EVALUATION /ASSESSMENT SCORE 0-6 Q4 PRN Therapy* or Home Regimen, Intermittent wheezing, or SOB 7-13 QID Therapy Wheezing or periodic SOB 14-19 Q6 Therapy Increased wheezing and/or SOB 20-26 Q4 Therapy Increased wheezing and/or SOB, Difficulty sleeping >26 Contact MD/JANNETH Severe Wheezing, SOB, Difficulty sleeping Note: Score gives a general indication of pulmonary risk. Clinical judgement may yield a different recommended frequency. Toleration: Patient tolerated treatment well. Patient Plan: I have spoken with the patient, and we have agreed to keep the current orders, without change. RT will continue to monitor the patient's progress. RAFT MACHINIST * Jennifer Burris MD - 2025 11:59 AM CST Daily Progress Note Division of Hospital Medicine Name: Chip Emery : 1940 Today's Date: 2025 Age: 85 y.o. male Admission: 04/01/2025 Bed: [id number] LOS: 2 days Subjective Interval History Seen and examined this morning No acute events over night No BM for the last 2 days and no bleeding No abd pain or nausea Appetite is good No dizziness Breathing is stable No chest pain No fever or chills or cough Stable and afebrile, saturating well on 3 L which is his baseline Objective Scheduled Meds PRN Meds Infusions aspirin, 81 mg, oral, Daily atorvastatin, 40 mg, oral, Nightly budesonide, 0.5 mg, nebulization, BID (RT) finasteride, 5 mg, oral, Daily furosemide, 40 mg, oral, BID DIURETIC ipratropium-albuteroL, 3 mL, nebulization, Q6H While awake (RT) pantoprazole, 40 mg, intravenous, BID sertraline, 50 mg, oral, BID tamsulosin, 0.4 mg, oral, Daily with dinner acetaminophen, 1,000 mg, oral, Q6H PRN ALPRAZolam, 0.25 mg, oral, BID PRN ipratropium-albuteroL, 3 mL, nebulization, Q4H PRN (RT) morphine, 5 mg, oral, Q4H PRN polyethylene glycol, 17 g, oral, Daily PRN ramelteon, 8 mg, oral, Nightly PRN Vitals Most Recent Vitals: T 36.4 ??C (97.5 ??F), HR 94, BP (!) 126/43, RR 16, SpO2 97 %. 24hr Min/Max: Temp Min: 36.4 ??C (97.5 ??F) Max: 36.6 ??C (97.9 ??F) Pulse Min: 69 Max: 97 BP Min: 112/41 Max: 126/43 Resp Min: 16 Max: 20 SpO2 Min: 90 % Max: 99 % Intake/Output Summary (Last 24 hours) at 2025 1159 Last data filed at 2025 0825 Gross per 24 hour Intake 730 ml Output 500 ml Net 230 ml Physical Exam Vitals and nursing note reviewed. Constitutional: General: He is not in acute distress. Comments: Very pleasant, comfortable, not in distress HENT: Nose: Comments: Nasal cannula Cardiovascular: Rate and Rhythm: Normal rate and regular rhythm. Pulmonary: Effort: No respiratory distress. Breath sounds: Normal breath sounds. No wheezing or rales. Abdominal: General: There is no distension. Palpations: Abdomen is soft. Tenderness: There is no abdominal tenderness. There is no guarding or rebound. Musculoskeletal: Right lower leg: No edema. Left lower leg: No edema. Comments: Calves are soft, symmetrical and nontender Skin: Comments: Jorge arm PIV intact Neurological: General: No focal deficit present. Mental Status: He is alert and oriented to person, place, and time. Psychiatric: Behavior: Behavior normal. Lines, Drains, Airways Peripheral IV 04/01/25 18 G Right Antecubital (Active) Peripheral IV 04/02/25 Anterior;Distal;Left Forearm (Active) Labs/Diagnostic Review Na 140 Cl 99 BUN 18 K 3.9 CO2 35 Cr 1.03 Mg -, G AST - ALT - Alk Phos - Ca 8.5 TP - Alb - Total Bili: - Direct Bili: - \ Hgb 7.9 / WBC 11.45 -------- Plt 233 / MCV 98.0 \ INR - (Labs above are the most recent result obtained in the last 24 hours. For additional labs/trends, see Epic.) I have reviewed the laboratory results. Imaging Review No results found. Assessment & Plan ABLA (acute blood loss anemia) Lower GI bleed History of diverticulosis Patient presented with recurrent painless hematochezia. Has had this issue since almost 2018. Last eval was with sigmoidoscopy in jun this year but prep was sub optimal however no active bleeding wasseen. Was also recently admitted at OSH (no scopes or transfusions over there) and discharged few days before presenting to [facility]. Last colonoscopy was 2017. He is not on AC but only takes baby asa for 2ndry prevention. Here, his hgb was found to be 7.7 from baseline of 10. CT A/P W WO was done on admission no active bleeding was seen but showed extensive diverticulosis. GI consulted. 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 No PFTs in chart. No signs of acute exacerbation but he has chronic dyspnea.On Pulmicort and albuterol at home. CXR with hyperinflated lungs from emphysema. Suspect his COPD is significantly advance given thin body habitus and pursed lip breathing technique. No other explanation of this dyspnea (no fluid overload currently, no PNA, no PE suspected) but anemia could be further contributing to the dyspnea. Plan: -Continue duonebz ATC and PRN -Continue home pulmicort -Continuing home diuretic (withholding parameters) -Discussed qualification for BiPAP but he declined as he stated he had tried it before and did not tolerate -Started on roxanol which helped significantly in his dyspnea, he reported feeling like a new person. We discussed risk and benefit if continuing it as a PRN and I counseled on side effects includingsedation, constipation, risk of dependence. He would benefit from palliative care referral on discharge. Chronic HFrEF (heart failure with reduced ejection fraction) ([facility]) OSH TTE 07/2024 w/ EF 35-40%. Home meds include coreg and lasix 40 bid. Appears euvolumic without signs of exacerbation. CXR on 04/02 without edema. Plan: -Cont home lasix to prevent fluid overload, withholding parameters for low BP, his BP has been tolerating well so far -Keep holding coreg for now, monitor BP and could resume later on based on trend History of CAD (coronary artery disease) History of ventricular tachycardia S/p CABG and ICD. Cont home asa and statin History of anxiety Resuming home xanax and zoloft History of BPH Cont home finasteride and flomax Goals of care, counseling/discussion No family members so POA = Friend Wei Tejada [phone]. Code status was confirmed to be DNRDNI on 04/02 by admitting physician Reduced mobility. Treatment as per PT or OT with increased nursing care. Code status : LIMITED - No CPR Diet : Adult Diet Regular NPO Diet PT/OT Dispo Rec : / OT Recommendation: Inpatient Rehab Facility Update Discharge Readiness Information Supplementary Attestation Today, I am treating the patient for recurrent rectal bleeding which is in severe exacerbation, progression, or experiencing treatment side effects as evidenced by the need for colonoscopy, as described in the note. Jennifer Burris MD RAFT MACHINIST * Senia Pro, LAND SURVEYOR ASSISTANT - 2025 9:07 AM CST Respiratory Medication Plan Situation: Patient is currently scheduled to receive Nebulized Duo-Neb (Albuterol/Ipratropium), Q6 While Awake.Pulmicort BID Home Medications: Current Outpatient Medications Medication Instructions ALPRAZolam (XANAX) 0.25 mg, oral, Nightly PRN atorvastatin (LIPITOR) 40 mg, Nightly budesonide (PULMICORT) 0.25 mg/2 mL nebulizer solution carvediloL (COREG) 3.125 mg, 2 times daily famotidine (PEPCID) 20 mg, oral, 2 times daily finasteride (PROSCAR) 5 mg, oral, Daily furosemide (LASIX) 40 mg, 2 times daily ipratropium-albuteroL (DUO-NEB) 0.5-2.5 mg/3 mL nebulizer solution INHALE 3 ML 4 TIMES A DAY BY NEBULIZATION ROUTE NEEDED FOR 10 DAYS. potassium chloride ER 20 mEq CR tablet sertraline (ZOLOFT) 50 mg, 2 times daily tamsulosin (FLOMAX) 0.4 mg extended release capsule 2 tablets, Daily Bronchodilator Assessment Score: 9 Pulmonary Status Pulmonary Impairment (Acute or Chronic) Surgical Status No Surgery Chest X-Ray Clear or Not Indicated Resp. Pattern Dyspnea on Exertion, Irregular Pattern, Respiratory Rate 26-30 Mental Status Alert, Oriented, Cooperative Cough Strong, Productive Breath Sounds Decreased Bilaterally/Coarse Level of Activity Ambulatory O2 Requirement 1-3 Liters or < 35% Oxygen therapy: SpO2 97 % O2 Therapy Supplemental oxygen Patient Vitals: Pulse 94 Resp. Rate 16 Respiratory Assessment: Resp. Effort Unlabored Depth & Rhythm Chest Assessment BRONCHODILATOR EVALUATION /ASSESSMENT SCORE 0-6 Q4 PRN Therapy* or Home Regimen, Intermittent wheezing, or SOB 7-13 QID Therapy Wheezing or periodic SOB 14-19 Q6 Therapy Increased wheezing and/or SOB 20-26 Q4 Therapy Increased wheezing and/or SOB, Difficulty sleeping >26 Contact MD/JANNETH Severe Wheezing, SOB, Difficulty sleeping Note: Score gives a general indication of pulmonary risk. Clinical judgement may yield a different recommended frequency. Toleration: Patient tolerated treatment well. Patient Plan: I have spoken with the patient, and we have agreed to keep the current orders, without change. RT will continue to monitor the patient's progress. RAFT MACHINIST * Jennifer Burris MD - 04/03/2025 11:51 AM CST Daily Progress Note Division of Hospital Medicine Name: Chip Emery : 1940 Today's Date: April 03, 2025 Age: 84 y.o. male Admission: 04/01/2025 Bed: [id number] LOS: 1 days Subjective Interval History Seen and examined this morning No acute events overnight Feels well aside from the dyspnea which worsened after physical exertion when he was trying to use the bathroom No chest pain or dizziness No longer having diarrhea but passing a lot of gas No further bleeding No abd pain or nausea Stable and afebrile, saturating well on 3 L NC which is his baseline Objective Scheduled Meds PRN Meds Infusions aspirin, 81 mg, oral, Daily atorvastatin, 40 mg, oral, Nightly budesonide, 0.5 mg, nebulization, BID (RT) finasteride, 5 mg, oral, Daily [START ON 2025] furosemide, 40 mg, oral, BID DIURETIC ipratropium-albuteroL, 3 mL, nebulization, Q6H While awake (RT) pantoprazole, 40 mg, intravenous, BID sertraline, 50 mg, oral, BID tamsulosin, 0.4 mg, oral, Daily with dinner acetaminophen, 650 mg, oral, Q4H PRN ALPRAZolam, 0.25 mg, oral, BID PRN benzocaine-menthoL, 1 lozenge, mouth/throat, Q2H PRN ipratropium-albuteroL, 3 mL, nebulization, Q4H PRN (RT) polyethylene glycol, 17 g, oral, Daily PRN ramelteon, 8 mg, oral, Nightly PRN Vitals Most Recent Vitals: T 36.6 ??C (97.9 ??F), HR 85, BP 138/61, RR 20, SpO2 100 %. 24hr Min/Max: Temp Min: 36.6 ??C (97.9 ??F) Max: 36.6 ??C (97.9 ??F) Pulse Min: 84 Max: 85 BP Min: 138/61 Max: 138/61 Resp Min: 18 Max: 20 SpO2 Min: 100 % Max: 100 % Intake/Output Summary (Last 24 hours) at 04/03/2025 1155 Last data filed at 04/03/2025 0215 Gross per 24 hour Intake 500 ml Output 650 ml Net -150 ml Physical Exam Vitals and nursing note reviewed. Constitutional: General: He is not in acute distress. Comments: Pleasant, comfortable appearing Cardiovascular: Rate and Rhythm: Normal rate and regular rhythm. Heart sounds: Normal heart sounds. No murmur heard. Pulmonary: Effort: No respiratory distress. Breath sounds: No wheezing or rales. Comments: Decreased air entry throughout but no wheezes, no resp distress but using pursed lips technique Abdominal: General: Bowel sounds are normal. There is no distension. Palpations: Abdomen is soft. Tenderness: There is no abdominal tenderness. Musculoskeletal: Right lower leg: No edema. Left lower leg: No edema. Comments: Calves are soft, symmetrical and nontender Skin: Comments: Jorge arm PIV intact Neurological: General: No focal deficit present. Mental Status: He is alert and oriented to person, place, and time. Psychiatric: Behavior: Behavior normal. Lines, Drains, Airways Peripheral IV 04/01/25 18 G Right Antecubital (Active) Peripheral IV 04/02/25 Anterior;Distal;Left Forearm (Active) Labs/Diagnostic Review Na 143 Cl 100 BUN 18 K 3.5 CO2 36 Cr 1.07 Mg -, G AST 22 ALT 17 Alk Phos 86 Ca 8.9 TP - Alb 4.1 Total Bili: 1.0 Direct Bili: - \ Hgb 7.8 / WBC 10.04 -------- Plt 217 / MCV 95.1 \ INR 0.98 (Labs above are the most recent result obtained in the last 24 hours. For additional labs/trends, see Epic.) I have reviewed the laboratory results. Imaging Review XR Chest 1 View Result Date: 04/02/2025 No prior images available for comparison. Left side defibrillator with coils projecting over the left brachiocephalic vein and the tip over the right ventricle. No acute airspace disease. No pleural effusion or pneumothorax. Normal cardiomediastinal silhouette. Coronary atherosclerosis with stent in the LAD. The radiology attending physician has personally reviewed this study, and had reviewed and/or edited this written report and agrees with it. Electronically signed by: Suman EncarnacionD. CT Abdomen Pelvis W WO Contrast Result Date: 04/02/2025 1. Focus of hyperattenuation along the wall of the sigmoid colon without pooling on the venous phase favored to represent mucosal hyperenhancement versus artifact, unlikely gastrointestinal bleeding.Otherwise, no evidence of acute gastrointestinal bleeding. 2. 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 This report was telephoned by Dr. Flaherty to Dr. Harris on 04/02/2025 1:59 AM. Dictated by: Sushil Flaherty MD The radiology attending physician has personally reviewed this study, and had reviewed and/or edited this written report and agrees with it.Electronically signed by: Joss Chaney M.D. Assessment & Plan ABLA (acute blood loss anemia) Lower GI bleed History of diverticulosis Patient presented with recurrent painless hematochezia. Has had this issue since almost 2018. Last eval was with sigmoidoscopy in jun this year but prep was sub optimal however no active bleeding wasseen. Was also recently admitted at OSH (no scopes or transfusions over there) and discharged few days before presenting to [facility]. Last colonoscopy was 2017. He is not on AC but only takes baby asa for 2ndry prevention. Here, his hgb was found to be 7.7 from baseline of 10. CT A/P W WO was done on admission no active bleeding was seen but showed extensive diverticulosis. GI consulted. Recent Labs Lab Units 04/03/25 0401 04/02/25 1930 04/02/25 1323 04/02/25 0614 04/02/25 0310 HEMOGLOBIN g/dL 7.8* 8.2* 8.2* 8.4* 8.4* 7.7* Plan: -GI input reviewed and appreciated, plan for colonoscopy Friday to look for active bleed vs other explainations such as cancer -If no other explanation, he would benefit from CRS referral for surgical option -C diff pending (had diarrhea initially and has hx of cdfif before and had recent abx exposure for COPD ex treatment) -PPI -Space out CBC to BID given stable hgb -If bleeding recurs, obtain stat CTA Chronic respiratory failure with hypoxia (HCC) History of COPD Chronic dyspnea On 3 L o2 at baseline. No PFTs in chart. No signs of acute exacerbation but he has chronic dyspnea.On Pulmicort and albuterol at home. CXR with hyperinflated lungs from emphysema. Suspect his COPD signifcant advance given thin body habitus and pursed lip breathing technique Plan: -Start duonebz ATC and PRN -Resume home pulmicort -Resuming home diuretic -Discussed qualification for BiPAP but he stated he declined as he had tried it before and did not tolerate -Trial roxanol to help alleviate dyspnea Chronic HFrEF (heart failure with reduced ejection fraction) ([facility]) OSH TTE 07/2024 w/ EF 35-40%. Home meds include coreg and lasix 40 bid. Appears euvolumic without signs of exacerbation. CXR on 04/02 without edema. Plan: -Resume lasix today to prevent fluid overload, withholding parameters for low BP -Keep holding coreg for now, monitor BP and could resume if robust History of CAD (coronary artery disease) History of ventricular tachycardia S/p CABG and ICD. Cont home asa and statin History of anxiety Resuming home xanax and zoloft History of BPH Cont home finasteride and flomax Goals of care, counseling/discussion No family members so POA = Friend Wei Tejada [phone] - confirmed DNRDNI on 04/02 FELICITY (acute kidney injury) (Resolved: 04/03/2025) Cr at baseline DVT ppx: SCDs only for now given GIB Code status : LIMITED - No CPR Diet : Adult Diet Restricted; Low Fat, Low Cholesterol, Low Sodium PT/OT Dispo Rec : / OT Recommendation: Inpatient Rehab Facility Update Discharge Readiness Information Supplementary Attestation My total encounter time on this service date was 80 minutes which was spent performing a [id number] encounter and personally completing the provider-level activities documented in the note. This includes time spent prior to the visit and after the visit in direct care of the patient. This time does not include time spent in any separately reportable services. Jennifer Burris MD RAFT MACHINIST * Anaid Lezama, OT - 04/03/2025 9:19 AM CST Occupational Therapy Occupational Therapy Evaluation Note NOTE: This is a summary note of the rouse components of the evaluation session. For full details, review chart for all flowsheets documented on by this occupational therapy clinician on this date. Vital signs are documented in vital signs flowsheet. For questions, please review the treatment team and contact the occupational therapist currently assigned to this patient. If an occupational therapist is not assigned to this patient, please call [phone]. 04/03/25 0937 General Chart Reviewed Yes Session Type Evaluation OT Received On 04/03/25 Safe Environment Patient found in supine;Session completed bedside;Gait belt utilized for all out of bed mobility Subjective Agreeable to Therapy Family/Caregiver Present No Occupational Therapy-Patient Goal Pt agreeable to OT POC. Precautions Precautions Fall risk;CHRISTINE Weight Bearing Restrictions No Precaution Handout Issued No Precaution Comments OT educated on precautions prior to mobility. Pt verbalized understanding. Home Living Type of Home House Home Layout One level Home Access Stairs to enter with rails Entrance Stairs-Rails Both Entrance Stairs-Number of Steps 5 Bathroom Shower/Tub Tub/shower unit Bathroom Toilet Standard Bathroom Equipment Grab bars in shower/tub Bathroom Accessibility Accessible Home Mobility Equipment-Available Other (Comment) (Walking stick) Home Mobility Equipment-Currently Using Other (Comment) (Walking stick) Home ADL Equipment-Available None Home ADL Equipment-Currently Using None Prior Function Level of [place] Independent with ADLs;Independent functional transfers;Independent with ambulation;Independent with homemaking with ambulation Lives With Alone Receives Help From- Available Friend(s);Neighbor;dining room attendant;multimedia project manager Receives Help From-Currently Friend(s);Neighbor;dining room attendant;multimedia project manager (Pt's friend/neighbor drives) Driving No Mode of Transportation Driven by others ADL Assistance Independent Instrumental ADL (IADL) Assistance Needs assistance (Cleaning lady comes in 1x/wk for 2 hours to clean and do laundry) Meal Prep Independent Laundry Total Cleaning Total Shopping Independent Outside Sales Account Manager Independent Medical Management Independent Fall within the last 6 months No ADL ADLS (WDL) X Grooming Grooming: Where assessed Edge of bed Grooming: Level of assistance Moderate Assist (Unable to complete in standing, set up task) Grooming: Assistance with Balance;Safety Toileting Toileting: Where assessed Bedside Commode Toileting: Level of assistance Moderate Assist Toileting: Assistance with Clothing management up;Clothing management down;Posterior;Balance;Safety Room Mobility Room Mobility comment Deferred due to SOB Toilet Transfers Toilet Transfer From Bed Toilet Transfer Type To and from Toilet Transfer to Standard bedside commode Toilet Transfer Technique Stand and Step Toilet Transfer: Equipment (Walking stick) Toilet Transfers Minimal assistance Toilet Transfers Comments for force production, controlled descent, weight shifting, and maintaining balance Pain Assessment Pain Assessment 0-10 Pain Score 0 - No pain Vision-Basic Assessment Current Vision Wears glasses all the time Cognition Overall Cognitive Status WFL Arousal/Alertness Alert;Appropriate responses to stimuli Attention Span Appears intact Memory Appears intact Current communication Appears Intact Orientation Oriented X4 (person, place, time, situation) Following Commands Follows all commands and directions without difficulty Safety Judgment Good awareness of safety precautions Awareness of Errors Good awareness of errors made Insight Fully aware of deficits Problem Solving Able to problem solve independently Compliance/Behavior Easy to engage Perseveration Not present Cognitive Tests Cognitive Tests Yes Short Blessed Test What year is it now? 0 What month is it now? 0 Repeat this name and address after me Rubio Brandon [address] [place] [address] Without looking at the clock, tell me what time it is 0 Count aloud backwards from 20-1 0 Say the months of the year backwards in reverse order 2 Repeat the name and address I asked you to remember 4 Short Blessed Total Score 6 Sensation Light Touch WFL Numbness/Tingling Yes (BUE; Pt reports this has been ongoing) Coordination Serial Opposition WFL Balance Tests Balance Tests Yes Tinetti Sitting Balance 1 Arises 0 Attempts to Arise 0 Immediate Standing Balance (First 5 Seconds) 1 Standing Balance 1 Nudged 1 Eyes Closed 1 Turned 360 Degrees: Steadiness 1 Turned 360 Degrees: Continuity of Steps 1 Sitting Down 1 Balance Score 8 Balance Balance Yes Static Sitting Balance Static Sitting-Balance Support Bilateral upper extremity supported;Feet supported Static Sitting-Sitting Surface Bed Static Sitting-Level of Assistance Close supervision Static Sitting-Comment/# of Minutes for safety Dynamic Sitting Balance Dynamic Sitting-Balance Support Bilateral upper extremity supported;Feet supported Dynamic Sitting-Balance Lateral lean;Forward lean;Reaching across midline Dynamic Sitting-Sitting Surface Bed Dynamic Sitting-Level of Assistance Close supervision Dynamic Sitting-Comments for safety Static Standing Balance Static Standing-Balance Support Left upper extremity supported (Walking stick) Static Standing-Standing Surface Floor Static Standing-Level of Assistance Minimum assistance Static Standing-Comment/# of Minutes for maintaining balance and safety Dynamic Standing Balance Dynamic Standing-Balance Support Left upper extremity supported (Walking stick) Dynamic Standing-Balance Lateral lean;Forward lean;Reaching across midline Dynamic Standing-Standing Surface Floor Dynamic Standing-Level of Assistance Minimum assistance Dynamic Standing-Comments for maintaining balance and safety Bed Mobility Bed Mobility Yes Bed Mobility 1 Bed Mobility From 1 Supine Bed Mobility Type 1 To and from Bed Mobility to 1 Edge of bed Level of Assistance 1 Minimum Assist Bed Mobility Comments 1 for trunk control Transfers Transfer Yes Transfer 1 Transfer From 1 Sit Transfer Type 1 To and from Transfer to 1 Stand Technique 1 Sit to stand;Stand to sit Transfer Device 1 Other (comments) (Walking stick) Transfer Level of Assistance 1 Minimum Assist Trials/Comments 1 for force production, controlled descent, and maintaining balance RUE Assessment RUE Assessment WFL LUE Assessment LUE Assessment WFL Other Comments Comments Pt would benefit from skilled OT to increase independence in ADLs/IADLs. OT discussed discharge recommendation, pt agreeable at this date. Daily Activity - 6 Clicks Putting on and taking off regular lower body clothing 2 Bathing 2 Toileting 2 Putting on and taking off upper body clothing 3 Personal Grooming 2 Eating Meals 4 Total Score (range 6-24) 15 Score Interpretation 34.69 Safe Environment End of Therapy Session Safe Environment End of Therapy Session Patient left supine in bed;Bed alarm in place and activated;Nurse notified;Call light within reach;Overbed table within reach;Bed in lowest position with wheels locked Assessment Problem List Decreased mobility;Decreased endurance;Decreased balance;Decreased functional mobility;Decreased ADL independence;Decreased IADL independence;Pain;Debility Barriers to Discharge Current Mobility Status;Current ADL Status;Decreased caregiver support Barrier Comments Fall risk Plan Plan Plan of care initiated;If this is the last note, consider this the discharge summary Recommendation/Plan OT Recommendation Inpatient Rehab Facility Patient is motivated to actively participate in therapy 3hr/day, 5days/wk (900min) Yes Final discharge destination post acute care will be community based (home, independent living, assisted living) Yes Patient requires more than one skilled therapy discipline Yes Patient requires at least minimal assistance with toileting/toilet transfers, transfers AND locomotion (amb or w/c mobility) Yes Patient has cognitive function to actively participate and benefit from intensive rehab Yes Recommend Inpatient Rehab/Acute Rehab due to Ability to actively participate in intensive therapy 3hours/day, 5 days/week or 900 minutes per week;Highly motivated to participate in therapy;Not at baseline due to impaired ability to complete ADLs;Impaired ability to complete functional mobility;Likely to return to the community at discharge with support system in place;Requires greater than 25% physical assistance with most mobility tasks;Requires greater than 25% physical assistance with most ADL tasks;Requires multiple therapy disciplines to address functional deficits Patient at high risk for Falls;Readmission;Injury due to decreased ability to care for self;Injury due to reduced functional status;Injury due to balance deficits;Injury at home as patient has not returned to prior level of function;Prolonged dependence for self care tasks OT Frequency during current admission 5-7x/wk Treatment/Interventions during current admission ADL/IADL retraining;Balance Training;Bed mobility;Compensatory technique education;Endurance training;Functional activity;Functional mobility training;Functional transfer training;Parent/caregiver training and education;Positioning;Strengthening;Thera peutic activity;Therapeutic exercise;Transfer training OT - Next Appointment 04/04/25 OT Evaluation Complete Yes OT Time Calculation OT Start Time 918 OT Stop Time 949 OT Time Calculation (min) 31 min Multi-Disciplinary Problems (from Occupational Therapy) Active Problems Problem: Dressings Lower Extremities Start Date: 04/03/25 Goal Start Date Expected End Date End Date STG - Patient to complete lower body dressing with min A. 04/03/25 04/17/25 -- Problem: Grooming Start Date: 04/03/25 Goal Start Date Expected End Date End Date STG - Patient will complete grooming standing at sink with min A. 04/03/25 04/17/25 -- Problem: Transfers Start Date: 04/03/25 Goal Start Date Expected End Date End Date STG - Patient will perform toilet transfer to standard toilet with min A. 04/03/25 04/17/25 -- Problem: OT Misc Start Date: 04/03/25 Goal Start Date Expected End Date End Date OT LTG - Patient will perform all ADLs with SPV. 04/03/25 04/24/25 -- RAFT MACHINIST * Jennifer Burris MD - 04/02/2025 10:49 AM CST Accept Note Division of Hospital Medicine Name: Chip Emery : 1940 Service Date: April 02, 2025 Age: 84 y.o. male Admit Date: 04/01/2025 Bed: [id number] LOS: 0 days I assumed care of Chip Emery on 04/02/25. I have seen and examined the patient and the medical record. I agree with the Admission H&P with date of service today. 84 yo male with hx of CAD s/p CABG, VT s/p ICD, Chronic HFrEF 2/2 ICM (EF 35% 2024), COPD with CHRFon 3 L o2, CVA, AAA (3.3 cm), recurrent GIB since 2018. Prior cdiff. BPH. Presented with persistent painless hematochezia (with every BM), no associated abd pain. No anemia symptoms like dizziness or palpitations but he has chronic dyspnea. He is only on baby aspirin, no AC or NSAID use From chart review, last scope was sigmoidoscopy in Jun this year but was limited from poor bowel prep but no active bleeding was seen. Lowest Hgb 7.7, trending down from 10. Remained vitally stable with a couple of soft BP reads. Other work up so far includes: nl coags VBG with chronic hypercapnia compensated Troponins -ve BNP 902 (seems at baseline based on care everywhere) CT A/P W WO without active bleeding but showed extensive diverticulosis This morning, he is doing well beside the dyspnea Exam notable for: VSS, no distress. Abd soft nontender. Chest clear without wheezes (although decreased air entry throughout), heart sounds distant but nl s1 s2. ICD in place. No leg edema. No JVD. A/P: #ABLA 2/2 LGIB w/ painless hematochezia #Acute diarrhea #Chronic dyspnea due to advanced COPD with chronic hypoxic and hypercapnic resp failure #Hx of chronic HFrEF 2/2 ICM -GI consulted, spoke with fellow, will likely plan for colonoscopy Friday -CBG Q8, transfuse for Hgb < 7 -Bowel prep Friday, earlier if plans change -Follow up C diff results, start fidaxo if +ve -Hold home coreg and lasix while BP is soft, currently euvolumic, monitor resp status closely -Update CXR -Start duo nebz ATC and start Pulmicort which is a home med -Can restart home asa which is for secondary prevention -PTOT Jennifer Burris MD RAFT MACHINIST * Senia Pro, LAND SURVEYOR ASSISTANT - 04/02/2025 10:00 AM CST HOME REGIMENT: Respiratory Medication Plan Situation: Patient is currently scheduled to receive Nebulized Duo-Neb (Albuterol/Ipratropium), Q6 While Awake. Home Medications: Current Outpatient Medications Medication Instructions ALPRAZolam (XANAX) 0.25 mg, oral, Nightly PRN atorvastatin (LIPITOR) 40 mg, Nightly budesonide (PULMICORT) 0.25 mg/2 mL nebulizer solution carvediloL (COREG) 3.125 mg, 2 times daily famotidine (PEPCID) 20 mg, oral, 2 times daily finasteride (PROSCAR) 5 mg, oral, Daily furosemide (LASIX) 40 mg, 2 times daily ipratropium-albuteroL (DUO-NEB) 0.5-2.5 mg/3 mL nebulizer solution INHALE 3 ML 4 TIMES A DAY BY NEBULIZATION ROUTE NEEDED FOR 10 DAYS. potassium chloride ER 20 mEq CR tablet sertraline (ZOLOFT) 50 mg, 2 times daily tamsulosin (FLOMAX) 0.4 mg extended release capsule 2 tablets, Daily Bronchodilator Assessment Score: 6 Pulmonary Status Pulmonary Impairment (Acute or Chronic) Surgical Status No Surgery Chest X-Ray Clear or Not Indicated Resp. Pattern Regular, Respiratory Rate less than or equal to 20 Mental Status Alert, Oriented, Cooperative Cough Strong, Non-Productive Breath Sounds Decreased Bilaterally/Coarse Level of Activity Ambulatory O2 Requirement 1-3 Liters or < 35% Oxygen therapy: SpO2 100 % O2 Therapy Supplemental oxygen Patient Vitals: Pulse 96 Resp. Rate 18 Respiratory Assessment: Resp. Effort Depth & Rhythm Chest Assessment BRONCHODILATOR EVALUATION /ASSESSMENT SCORE 0-6 Q4 PRN Therapy* or Home Regimen, Intermittent wheezing, or SOB 7-13 QID Therapy Wheezing or periodic SOB 14-19 Q6 Therapy Increased wheezing and/or SOB 20-26 Q4 Therapy Increased wheezing and/or SOB, Difficulty sleeping >26 Contact MD/JANNETH Severe Wheezing, SOB, Difficulty sleeping Note: Score gives a general indication of pulmonary risk. Clinical judgement may yield a different recommended frequency. Toleration: Patient tolerated treatment well. Patient Plan: I have spoken with the patient, and we have agreed to keep the current orders, without change. RT will continue to monitor the patient's progress. RAFT MACHINIST documented in this encounter H&P Notes * Lida Borja MD PhD - 04/02/2025 6:16 AM CST History and Physical Division of [facility] Name: Chip Emery : 1940 Today's Date: April 02, 2025 Age: 84 y.o. male Admit Date: 04/01/2025 Bed: [id number] LOS: 0 days Subjective HPI Chip Emery is a 84 y.o. male with 83M w/ HFrEF (EF 35 in 2024), CAD s/p CABG, VT s/p ICD, COPD w/ chronic resp failure on 3L O2, CVA,recurrent GIB p/w hematochezia Not known to our system. Recurrent GIBs since 2018. He was hospitalized in July at OSH for GIB in setting of c diff infection. He did okay until 1 week ago when he developed BRBPR again and went to [facility] for 4 days. Records not available for review on care everywehre and the paper records he bought is patient information and gives no medical info but patient is quite a good historian. He said he received no transfusions and no scopes done b/c he had a flex sig in 06/2024 (which was limited by prep but no bleeding noted). He said BRBPR got better in the hospital but returned w hen he discharged home yesterday. Which is why he's here today. Says he has both melena and BRBPR. Denies abd pain, N/V. Was on levaquin for UTI last week vs COPD exacerbation and feel slike he has had a bit of diarrhea too. In the ED: - vitals were: AF, HR 100, lowest BP 90/50, on baseline O2 - labs remarkable for: Cr 1.2 (Cr 0.9 in 07/2024), WBC 10, Hgb 7.7 (Hgb 11 in 08/2024 ), coags fine, plt fine, - imaging: CT ap w/ focus of hyperattenuation along wall of sigmoid likely mucosal hyperenhancementand less likely GIB - interventions: PPI IV Med rec based on: pt recall + dispense report Past Medical History No past medical history on file. No past surgical history on file. No current facility-administered medications on file prior to encounter. Current Outpatient Medications on File Prior to Encounter Medication Sig Dispense Refill ALPRAZolam (XANAX) 0.25 mg tablet Take 1 tablet (0.25 mg total) by mouth nightly as needed for anxiety atorvastatin (LIPITOR) 40 mg tablet Take 1 tablet (40 mg total) by mouth nightly budesonide (PULMICORT) 0.25 mg/2 mL nebulizer solution carvediloL (COREG) 3.125 mg tablet Take 1 tablet (3.125 mg total) by mouth 2 (two) times a day furosemide (LASIX) 40 mg tablet Take 1 tablet (40 mg total) by mouth 2 (two) times a day ipratropium-albuteroL (DUO-NEB) 0.5-2.5 mg/3 mL nebulizer solution INHALE 3 ML 4 TIMES A DAY BY NEBULIZATION ROUTE NEEDED FOR 10 DAYS. potassium chloride ER 20 mEq CR tablet sertraline (ZOLOFT) 50 mg tablet Take 1 tablet (50 mg total) by mouth 2 (two) times a day tamsulosin (FLOMAX) 0.4 mg extended release capsule Take 2 tablets by mouth daily famotidine (PEPCID) 20 mg tablet Take 1 tablet (20 mg total) by mouth 2 (two) times a day finasteride (PROSCAR) 5 mg tablet Take 1 tablet (5 mg total) by mouth daily No Known Allergies Social and Family History Social History Tobacco Use Smoking status: Not on file Smokeless tobacco: Not on file Substance and Sexual Activity Drug use: Not on file Sexual activity: Not on file Alcohol Use: Not on file No family history on file. Objective Vitals Most Recent Vitals: T 36.5 ??C (97.7 ??F), HR 92, BP 95/53, RR 16, SpO2 100 %. 24hr Min/Max: Temp Min: 36.4 ??C (97.6 ??F) Max: 36.5 ??C (97.7 ??F) Pulse Min: 83 Max: 106 BP Min: 95/53 Max: 134/73 Resp Min: 16 Max: 27 SpO2 Min: 98 % Max: 100 % No intake or output data in the 24 hours ending 04/02/25 0616 Physical Exam Constitutional: NAD, well developed, well nourished Eyes: EOMI, anicteric ENT: NCAT, oropharynx normal, moist mucus membranes Lungs: Decreased breath sounds b/l Clear to auscultation in all lung echevarria, unlabored, trachea midline Cardiovascular: RRR, normal S1 and S2, no murmurs GI: Soft, non-tender, non-distended, bowel sounds +, no organomegaly Skin: No new rashes, lesions or bruises Extremities: Normal without edema or cyanosis Lymph: No cervical, supraclavicular, axillary or inguinal adenopathy Neurologic: AOx4, CNII-XII intact, normal strength and sensation Psychiatric: Normal affect and mood I have reviewed the patient's vital signs. Lines, Drains, Airways Peripheral IV 04/01/25 18 G Right Antecubital (Active) Peripheral IV 04/02/25 18 G Left Antecubital (Active) Peripheral IV 04/02/25 Anterior;Distal;Left Forearm (Active) Labs/Diagnostic Review Na 144 Cl 101 BUN 19 K 4.3 CO2 34 Cr 1.2 Mg -, G AST 22 ALT 17 Alk Phos 86 Ca 9.0 TP - Alb 4.1 Total Bili: 1.0 Direct Bili: - \ Hgb 7.7 / WBC 10.77 -------- Plt 192 / MCV 95.5 \ INR 0.98 (Labs above are the most recent result obtained in the last 24 hours. For additional labs/trends, see Epic.) I have reviewed the laboratory results. Imaging Review CT Abdomen Pelvis W WO Contrast Result Date: 04/02/2025 1. Focus of hyperattenuation along the wall of the sigmoid colon without pooling on the venous phase favored to represent mucosal hyperenhancement versus artifact, less likely active gastrointestinalbleeding. 2. 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 This report was telephoned by Dr. Flaherty to Dr. Harris on 04/02/2025 1:59 AM. Dictated by: Sushil Flaherty MD Assessment & Plan Hematochezia Melena + BRBPR. - recurrent GIB since 2019. Hospitalized this year 07/2024 (flex sig done but no active bleeding) and 4 days prior at [facility] (records not available but no transfusions or scopes done and when he got home BRBPR returned) - workup: Hgb 7.7 (Hgb 11 in 08/2024), CT ap w/ focus of hyperattenuation along wall of sigmoid likely mucosal hyperenhancement and less likely GIB Plan: - c diff d/t recent diarrhea - 2 large bore IVs - IV PPI BID - NPO - no IVF d/t HFrEF - active type and screen - Serial CBC q8 Transfuse Hb < 7 Plt < 50 - check H pylori - Hold aspirin, anti hypertensives - consult GI HFrEF (heart failure with reduced ejection fraction) OSH TTE 07/2024 w/ EF 35-40% - OSH stress test 07/2024 w/ showing anterior/anteroseptal/apical myocardial infarction without ischemia - euvolemic on admission Plan: - hold coreg d/t GIB - hold lasix but may need to restart if getting blood transfusions Arteriosclerosis of coronary artery S/p CABG - statin - hold ASA Primary hypertension Hold antihypertensives d/t GIB Anxiety Xanax prn nightly FELICITY (acute kidney injury) Cr 1.2 (Cr 0.9 in 07/2024) - likely pre-renal. No signs of heart failure to suggest cardiorenal Plan: - may need a bit of fluids Chronic respiratory failure with hypoxia (HCC) From COPD, on 3L O2 - only on albuterol at home Plan: - duonebs prn Goals of care, counseling/discussion No family members so POA = Friend Wei Tejada [phone] - confirmed DNRDNI on 04/02 Code status : LIMITED - No CPR Diet : NPO Diet Ice chips, Sips with meds Update Discharge Readiness Information Supplementary Attestation My total encounter time on this service date was 99 minutes which was spent performing a [id number]-[id number] encounter and personally completing the provider-level activities documented in the note. This includes time spent prior to the visit and after the visit in direct care of the patient. This time does not include time spent in any separately reportable services. Lida Borja MD PhD RAFT MACHINIST documented in this encounter Consult Notes * Lety Jaramillo, RD - 04/03/2025 1:31 PM CSTAssociated Order(s): IP CONSULT TO NUTRITION SERVICES NUTRITION ASSESSMENT Nutrition Status: Patient does not meet AAIM (ASPEN) criteria for malnutrition at this time. REASON FOR ASSESSMENT: Consult/Referral - Diet Education and Malnutrition Assessment Encounter Date: 04/03/25 1:36 PM Admission Date: 04/01/2025 LOS: 1 days HPI: Patient is a 84 y.o. male w/ HFrEF (EF 35 in 2024), CAD s/p CABG, VT s/p ICD, COPD w/ chronic resp failure on 3L O2, CVA, recurrent GIB p/w hematochezia. Objective No past medical history on file. No past surgical history on file. Social History Tobacco Use Smoking status: Not on file Smokeless tobacco: Not on file Substance and Sexual Activity Drug use: Not on file Sexual activity: Not on file Alcohol Use: Not on file MEDICATION/LAB REVIEW: Scheduled Meds: aspirin, 81 mg, oral, Daily atorvastatin, 40 mg, oral, Nightly budesonide, 0.5 mg, nebulization, BID (RT) finasteride, 5 mg, oral, Daily furosemide, 40 mg, oral, BID DIURETIC ipratropium-albuteroL, 3 mL, nebulization, Q6H While awake (RT) pantoprazole, 40 mg, intravenous, BID sertraline, 50 mg, oral, BID tamsulosin, 0.4 mg, oral, Daily with dinner Continuous Infusions: PRN Meds: acetaminophen ALPRAZolam ipratropium-albuteroL morphine polyethylene glycol ramelteon Recent Labs Lab Units 04/02/25 1930 04/01/25 2342 04/01/25 2251 SODIUM mmol/L 143 < > 144 POTASSIUM PLASMA mmol/L 3.5 < > 4.3 CHLORIDE mmol/L 100 < > 101 CO2 mmol/L 36* < > 34* BUN SERUM mg/dL 18 < > 19 CREATININE mg/dL 1.07 < > 1.21 CREATININE POC -- < > -- [id number] mL/min/1.73 m2 69 < > 59* CALCIUM mg/dL 8.9 < > 9.0 ALBUMIN g/dL -- -- 4.1 < > = values in this interval not displayed. Recent Labs Lab Units 04/02/25 1930 04/02/25 1323 04/01/25 2251 GLUCOSE mg/dL 165 138 145 ALT Date Value Ref Range Status 04/01/2025 17 7 - 55 Units/L Final AST Date Value Ref Range Status 04/01/2025 22 10 - 50 Units/L Final Alk phos Date Value Ref Range Status 04/01/2025 86 40 - 130 Units/L Final No results found for: HGBA1C, HDL, LDLCALC, CHOL, TRIG NURSING ASSESSMENT: Last BM Date: 04/02/25 Bowel Sounds (All Quadrants): Active Kennedy Scale Score: 18 Skin Integrity: Bruising Vital Signs @FLOW(5) Temp: 36.6 ??C (97.9 ??F) Pulse: 85 Resp: 20 SpO2: 100 % Intake/Output Summary (Last 24 hours) at 04/03/2025 1336 Last data filed at 04/03/2025 0215 Gross per 24 hour Intake 200 ml Output 450 ml Net -250 ml Adult Malnutrition Scoring Tool (MST) What diet do you follow at home?: none Have You Recently Lost Weight Without Trying?: No Have you been eating poorly because of a decreased appetite?: No Malnutrition Screening Tool (MST) Score: 0 Hunger Screen - Admission Within the past 12 months the food we bought just didn't last and we didn't have money to get more.: Never true Within the past 12 months we worried whether our food would run out before we got money to buy more.: Never true Anthropometrics Weight: 63.5 kg (140 lb 1.6 oz) Admission Weight : 63.5 kg Weight Change: 0.00 kg (0.00 lbs) Wt Readings from Last 10 Encounters: 04/03/25 63.5 kg (140 lb 1.6 oz) ESTIMATED NEEDS: Total Kcal/kg Estimated Needs : 1906.47 Kcal/k. Type of Weight Used for Estimated Kcals: Current Total Protein Estimated Needs (gm): 63.55 Protein Needs Based on g/k.0 Type of Weight Used for Estimated Protein : Current Dietary Orders (From admission, onward) Start Ordered 04/03/25 1336 Oral Nutrition Supplements ([facility]) Select Supplement: Ensure High Protein - Any Flavor;Quantity (# of cans): 1 can With Lunch and Dinner Question Answer Comment ([facility]) Select Supplement: Ensure High Protein - Any Flavor Quantity (# of cans): 1 can 04/03/25 1335 04/02/25 1111 Adult Diet Restricted; Low Fat, Low Cholesterol, Low Sodium Diet effective now Question Answer Comment ([facility]) Diet type Restricted Fat / Sodium Restriction: Low Fat, Low Cholesterol, Low Sodium 04/02/25 1110 Allergies: Reviewed. IMPRESSION: Pt reports eating less this AM d/t having difficulty breathing. Pt reports weight and appetite werestable HI TEACHER. Pt reports using nutrition supplements on occasion, agreeable to using them during hospitalization if eating less. FRANCISCO J (DWIGHT) MALNUTRITION ASSESSMENT: Date of completion: 04/03/2025 NUTRITION FOCUSED PHYSICAL EXAM: Not completed, no concerns for malnutrition at this time. NUTRITION DIAGNOSIS: Nutrition Diagnosis 1: Food and nutrition-related knowledge deficit Related to: Lack of education Evidenced by: Patient interview INTERVENTION(S): Summary: Education, nutrition, Medical food supplement Continue with low fat, low chol, low Na diet Heart Healthy diet education provided Ensure HP BID RD will continue to follow Educated patient on a Heart Healthy Diet. Discussed foods high in sodium and ways to substitute or reduce the sodium of these foods. Discussed foods allowed. Alternative seasonings discussed. Sample menu provided. Discussed ways to decrease saturated fat, increase unsaturated fat as well as incorporating fiber, fruits and vegetables, & whole grains into diet. Reviewed how to read a nutrition label and discussed low fat, low cholesterol, and low sodium food options. RD contact information provided. GOAL(S): Adequate nutrition to meet estimated needs by next assessment, Patient/caregiver able to teach backunderstanding of role of diet in disease process prior to discharge, Tolerance of medical food supplement by next assessment MONITORING/EVALUATION: Appetite, PO intake, Weight changes Lety Jaramillo RD, LD Clinical Dietitian, [facility] [phone] RAFT MACHINIST * Joss Anguiano MD - 04/02/2025 12:13 PM CSTAssociated Order(s): IP CONSULT TO GASTROENTEROLOGY Images from the original note were not included. General GI Initial Consult Chief complaint: Hematochezia Reason for consult: GIB HPI: This is a 84 y.o. 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 Prior cdiff. BPH. GI consulted for hematochezia. Patient with hematochezia and s/o extensive colonic diverticulosis on CT scan upon admission without any s/o active GIB. Patient hemodynamically stable, hemoglobin 10 > 7.7. Last flex sig 06/2024 without OSH records, but poor bowel prep with no active bleeding per primary. Prior colonoscopy in 2018 without active bleeding, small polyps, and diverticulosis. No blood thinners, on baby ASA. Deniesabdominal pain. C. Diff results pending. Pertinent labs include most recent Hgb 8.4, plt 210, K 4.3, INR 0.98. No past medical history on file. No past surgical history on file. Medications Prior to Admission Medication Sig Dispense Refill Last Dose/Taking ALPRAZolam (XANAX) 0.25 mg tablet Take 1 tablet (0.25 mg total) by mouth nightly as needed for anxiety Taking As Needed atorvastatin (LIPITOR) 40 mg tablet Take 1 tablet (40 mg total) by mouth nightly Taking budesonide (PULMICORT) 0.25 mg/2 mL nebulizer solution Taking carvediloL (COREG) 3.125 mg tablet Take 1 tablet (3.125 mg total) by mouth 2 (two) times a day Taking furosemide (LASIX) 40 mg tablet Take 1 tablet (40 mg total) by mouth 2 (two) times a day Taking ipratropium-albuteroL (DUO-NEB) 0.5-2.5 mg/3 mL nebulizer solution INHALE 3 ML 4 TIMES A DAY BY NEBULIZATION ROUTE NEEDED FOR 10 DAYS. Taking potassium chloride ER 20 mEq CR tablet Taking sertraline (ZOLOFT) 50 mg tablet Take 1 tablet (50 mg total) by mouth 2 (two) times a day Taking tamsulosin (FLOMAX) 0.4 mg extended release capsule Take 2 tablets by mouth daily Taking famotidine (PEPCID) 20 mg tablet Take 1 tablet (20 mg total) by mouth 2 (two) times a day finasteride (PROSCAR) 5 mg tablet Take 1 tablet (5 mg total) by mouth daily No Known Allergies Social History Tobacco Use Smoking status: Not on file Smokeless tobacco: Not on file Substance and Sexual Activity Drug use: Not on file Sexual activity: Not on file Alcohol Use: Not on file No family history on file. Review of Systems: Review of systems per HPI and otherwise all other systems are negative Vitals: 24hr Min/Max: Temp Min: 36.4 ??C (97.6 ??F) Max: 36.6 ??C (97.9 ??F) Pulse Min: 83 Max: 106 BP Min: 95/53 Max: 134/73 Resp Min: 16 Max: 27 SpO2 Min: 97 % Max: 100 % Most Recent : Vitals: 04/02/25 1149 BP: Pulse: 100 Resp: 18 Temp: SpO2: 100% No intake/output data recorded. No intake/output data recorded. Objective Physical Exam: Constitutional: NAD, well developed, well nourished Eyes: EOMI, anicteric ENT: NCAT, oropharynx normal, moist mucus membranes Lungs: Decreased breath sounds b/l Clear to auscultation in all lung echevarria, unlabored, trachea midline Cardiovascular: RRR, normal S1 and S2, no murmurs GI: Soft, non-tender, non-distended, bowel sounds +, no organomegaly Skin: No new rashes, lesions or bruises Extremities: Normal without edema or cyanosis Lymph: No cervical, supraclavicular, axillary or inguinal adenopathy Neurologic: AOx4, CNII-XII intact, normal strength and sensation Psychiatric: Normal affect and mood Lab/Radiology/Diagnostic Review: Recent Labs Lab Units 04/02/25 0614 04/02/25 0310 04/01/25 2342 04/01/25 2251 WBC K/cumm 11.27* 10.77* -- 14.47* HEMOGLOBIN g/dL 8.4* 7.7* -- 10.1* HEMATOCRIT % 25.3* 23.1* -- 30.9* PLATELETS K/cumm 210 192 -- 282 SODIUM mmol/L -- -- -- 144 POTASSIUM PLASMA mmol/L -- -- -- 4.3 CHLORIDE mmol/L -- -- -- 101 CO2 mmol/L -- -- -- 34* ANIONGAP mmol/L -- -- -- 9 GLUCOSE mg/dL -- -- -- 145 BUN SERUM mg/dL -- -- -- 19 CREATININE mg/dL -- -- -- 1.21 CREATININE POC mg/dL -- -- 1.2 -- CALCIUM mg/dL -- -- -- 9.0 ALBUMIN g/dL -- -- -- 4.1 BILIRUBIN TOTAL mg/dL -- -- -- 1.0 ALK PHOS Units/L -- -- -- 86 ALT Units/L -- -- -- 17 AST Units/L -- -- -- 22 INR -- -- -- 0.98 Assessment/Plan #Hematochezia #Extensive colonic diverticulosis Patient with hematochezia and s/o extensive colonic diverticulosis on CT scan upon admission without any s/o active GIB. Patient hemodynamically stable, hemoglobin 10 > 7.7. Last flex sig 06/2024 without OSH records, but poor bowel prep with no active bleeding per primary. Prior colonoscopy in 2018 without active bleeding, small polyps, and diverticulosis. No blood thinners, on baby ASA. Suspect diverticular bleed, however will plan to r/o malignancy with colonoscopy this week for further evaluation. Differential includes diverticular bleed, hemorrhoidal bleeding, infectious colitis, ischemic colitis, inflammatory bowel disease, or AVM. May also represent brisk UGIB though doubt this in the setting of clinical stability. - F/u C. Diff results - Maintain adequate IV access - Trend CBC, active type and screen every 72 hours, blood consent - Transfuse for Hgb of > 7 (Hgb > 8 in the setting of ACS/HF/chest pain), platelets > 50, INR < 2 if able - Referral to CRS on discharge for discussion regarding surgical resection - Plan for Colonoscopy Thursday 04/05 - Keep on CLD after lunch on Wednesday 04/04. NPO at [facility] Friday night except for bowel prep. - The patient will need GoLytely split prep as follows: - Starting at 17:00 on 2025, have the patient drink 8 oz portions every 10- 15 minutes until 2 liters have been consumed. - Starting at or 00:01 on 04/05/2025, have the patient drink the remaining 2 liters, again as 8 oz portions every 10-15 minutes until all has been consumed. If nauseated, hold for 30 minutes and resume. - Aim to complete prep prior to 3 AM. - Please have night team check if stools are clear yellow like urine at 3 am. If stools are not clear yellow like urine, please have night team STAT order an additional 2 liters of GoLytely to be completed by 0500. Please also call pharmacy to bring the GoLytely STAT. - Check CBC, BMP, and INR the evening prior to procedure. Please have night team ensure Hgb > 7 (Hgb > 8 if patient has chest pain/ACS), platelets > 50, INR < 2, K > 3.5. Correct as appropriate and recheck labs STAT. Patient will not get scheduled procedure if these parameters are not met. Sample NF handoff: [ ] 1600: check if patient started bowel prep [ ] 2100: Hgb > 7, platelets > 50, INR < 2, K > 3.5 (replete as needed and recheck labsSTAT) [ ] 0001: check if patient started remaining 2 liters GoLytely [ ] 0300: check if patient completed GoLytely and stools are clear yellow like urine. If not, please order an additional 2 liters GoLytely and call pharmacy to bring GoLytely STAT [ ] 0500: if stools were not clear at 3 AM, check if pt has completed GoLytely and stools are clearyellow like urine Please reference the images below to gauge the quality of bowel prep. We will continue to follow-up with you. Thank you for involving us in the care of this patient. If you have any questions, please page the general GI phone at anytime. Joss Anguiano MD Gastroenterology Fellow Cosigned by Norris Webber MD at 04/02/2025 2:24 PM AIRCRAFT MACHINIST RAFT MACHINIST RAFT MACHINIST RAFT MACHINIST Associated attestation - Norris Webber MD - 04/02/2025 2:24 PM AIRCRAFT MACHINIST I saw and examined the patient on 04/02/2025. I agree with the findings and plan of care as documented in the fellow/resident's note. Today, I am treating the patient for hematochezia which is in moderate exacerbation, progression, or experiencing treatment side effects as evidenced by exam as described in the note. This diagnosis directly impacts my medical decision making. The patient reports over 8+ episodes of prior diverticular bleeds. This presentation is similar. Hehas not had a full colonoscopy in 2018. - Proceed with colonoscopy inpatient - Arrange colorectal surgery outpatient to discuss candidacy for partial colectomy - If bleeding recurs inpatient prior to colonoscopy, please obtain CTA or nuclear bleeding scan stat Norris Webber MD documented in this encounter Nursing Notes * Marie Oleary - 04/06/2025 10:20 PM CST Vitals: 04/06/25 1443 04/06/25 1630 04/06/25 1946 04/06/25 2105 BP: 130/59 148/61 BP Location: Left arm Left arm Patient Position: Pulse: 86 93 106 102 Resp: 18 18 18 18 Temp: 36.8 ??C (98.2 ??F) 36.8 ??C (98.2 ??F) TempSrc: Oral Oral SpO2: 99% 100% 90% 95% Weight: Patient is alert and oriented x 4, able to make needs known. Patient is being transported by Non emergent EMS transport x 2 transporters via stretcher. Hand off report given acknowledge patient's code status. Contact Isolation status and BM pending, bowel regimen given with positive bowel sounds and positive Flat.Skin assessment performed at shift change. O2 2 LPM via NC Malone catheter intact, dependent to drain darren urine. No pressure injuries noted . Patient denies pain and dis comfort. Patient leaves with personal items specifically his Glass, cell phone,PAO2 monitor (personal). PIV removed. networking engineer Brooke present at bedside. Patient confirms that he is being transferred to [facility] and agrees to transport. Patient validates the time at 22:05. RAFT MACHINIST RAFT MACHINIST * Gina Watt RN - 04/02/2025 5:00 AM CST This RN received report on this patient from the ED between [id number]. Once the patient arrived to 7500, this RN tried to get in contact with primary team to discuss drop in hemoglobin and notify that the patient had arrived to the floor. This RN contacted [facility] which was marked as primary team in this patients chart. This team stated that this was not their patient and the ED had made a m istake. This team still came by to assess the patient for stability and treat any immediate concerns. This RN notified the nurse charge rn, who got in contact with the pump house operator and patient placement on the error that had occurred. It was established that this patient was intended to be a medicine patient and could transfer to an appropriate floor when available. RAFT MACHINIST documented in this encounter ED Notes * Aristeo Plunkett Jr., MD - 04/01/2025 10:40 PM CST HPI Chief Complaint Patient presents with Black or Bloody Stool HPI 84-year-old male with a PMH CAD, COPD, BPH, presents to the emergency department with hematochezia. Patient recently admitted to [facility] with a GI bleed. He states this is the 2nd admission this year for GI bleeding. He has been getting GI bleed since 2019. He denies taking blood thinners other than 81 mg aspirin daily. He states he was discharged from the hospital this morning, after which he has had for bloody stools, increasing in volume. He is starting to feel weaker, mildly lightheaded, endorses shortness breath, denies chest pain. Patient History: Patient Active Problem List Diagnosis Date Noted Hematochezia 04/02/2025 CVA (cerebral vascular accident) (HCC) 04/02/2025 VT (ventricular tachycardia) 04/02/2025 HFrEF (heart failure with reduced ejection fraction) 04/02/2025 Anxiety 04/02/2025 FELICITY (acute kidney injury) 04/02/2025 Chronic respiratory failure with hypoxia (HCC) 04/02/2025 Goals of care, counseling/discussion 04/02/2025 Arteriosclerosis of coronary artery 06/26/2024 Primary hypertension 02/25/2020 No past medical history on file. No past surgical history on file. No family history on file. Social History Tobacco Use Smoking status: Not on file Smokeless tobacco: Not on file Substance and Sexual Activity Alcohol use: Not on file Drug use: Not on file Sexual activity: Not on file Social History Social History Narrative Not on file Review of Systems Review of Systems Physical Exam ED Triage Vitals Temp Pulse Resp BP SpO2 04/01/25222904/01/25222904/01/25222904/01/25222904/01/252229 36.4 ??C (97.6 ??F) 106 25 134/73 99 % Temp src Heart Rate Source Patient Position BP Location FiO2 (%) 04/02/25 0358 04/01/25223104/02/25 0358 04/02/25 0358 -- Oral Monitor Lying Left arm Height Height Method Weight Weight Method -- -- 04/01/25222904/02/258 68 kg (150 lb) Bed scale Physical Exam Vitals and nursing note reviewed. Constitutional: General: He is not in acute distress. Appearance: He is well-developed. HENT: Head: Normocephalic and atraumatic. Mouth/Throat: Mouth: Mucous membranes are moist. Pharynx: Oropharynx is clear. Eyes: Pupils: Pupils are equal, round, and reactive to light. Cardiovascular: Rate and Rhythm: Regular rhythm. Tachycardia present. Heart sounds: No murmur heard. Pulmonary: Effort: Pulmonary effort is normal. No respiratory distress. Breath sounds: Normal breath sounds. Abdominal: Palpations: Abdomen is soft. Tenderness: There is abdominal tenderness (Mild diffuse tenderness). There is no guarding or rebound. Musculoskeletal: General: No swelling or deformity. Cervical back: Neck supple. Skin: General: Skin is warm and dry. Neurological: Mental Status: He is alert. Comments: Clear speech. Eyes cross midline. No obvious facial droop. Moving all extremities. MDM Medical Decision Making We will obtain labs, CTA GI bleed protocol. Source appears to be lower. Doubt need for reversal given patient is not reportedly on any anticoagulation. May need discussion GI or IR. Patient hemodynamically stable at this time. We will need to admit ICU versus floor pending Amount and/or Complexity of Data Reviewed Labs: ordered. Radiology: ordered. Decision-making details documented in ED Course. ECG/medicine tests: ordered. Risk Prescription drug management. Decision regarding hospitalization. Attending Summary of Care ED Course as of 04/02/25 1552 Time: 04/01 7396 Comment: 84 yo male PMH-CAD, CABG, COPD, HTN, here c/o GI bleed, has BRBPR, has had this before in the past, recent admission to [facility] for GI bleed and discharged this morning, since discharge hashad 4 BRBPR bowel movements, now feeling weak, lightheaded, on home Oxygen for COPD, checking labs,pt state only on aspirin and no other anticoagulation By: Aristeo Plunkett Jr., MD Time: 04/02 011 Comment: Pt states he has had prior GI bleeds from diverticulosis By: Aristeo Plunkett Jr., MD Time: 04/02 233 Value: CT Abdomen Pelvis W WO Contrast Comment: IMPRESSION: 1. Focus of hyperattenuation along the wall of the sigmoid colon without pooling on the venous phase favored to represent mucosal hyperenhancement versus artifact, less likely active gastrointestinal bleeding. 2. 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 By: Bola Harris MD Time: 04/02 0240 Comment: Patient's blood pressures have remained hemodynamically stable, patient has not had further bloody output since arrival to the emergency department this evening. I do not believe that in hiscontacts the CT findings are consistent with an active GI bleed at this time. I believe that this patient is likely stable to the floor. I have ordered serial CBC for monitoring, will keep patient NPO. By: Bola Harris MD Time: 04/02 691 Comment: Pt admitted to medicine to follow H&H given GI bleeding, pt with history of diverticulosis which could be the source, CT shows nothing acute By: Aristeo Plunkett Jr., MD Time: 04/02 627 Comment: Surgery reports patient was admitted to their attending and their service, pt was to be admitted to medicine by the ED physician team. Discussing with the charge nurse, the admission office called them and said the patient was admitted to [facility] and needed an attending name, nursing and admit office modified the admission order. Pt was assigned to surgery bed by mistake. Resident clicked [facility] in the admit order by mistake but did not include an attending because the order was thought to be for medicine. By: Aristeo Plunkett Jr., MD Time: 04/02 0500 Comment: Working with trauma, ED charge, admit office, [facility] and medicine to correct the admit order on patient and get the patient admitted to medicine for serial H&H and GI to see. By: Aristeo Plunkett Jr., MD Gastrointestinal hemorrhage, unspecified gastrointestinal hemorrhage type Hematochezia Diverticulosis Chronic respiratory acidosis (HCC) I have seen and examined the patient on 04/01/2025 and 04/02/2025. I agree with the findings and plan of care as documented in the resident's note. Aristeo Plunkett Jr., MD 04/02/25 1553 RAFT MACHINIST * Marco Reynolds RN - 04/01/2025 10:19 PM CST Pt DELMIS, was admitted for GI bleed at outside hospital, discharged this morning, pt still having large bloody stools, feeling progressively weaker, history of previous GI bleeds an ddiverticulitis RAFT MACHINIST * Analia Archibald RN - 04/01/2025 10:17 PM CST Bed: ED1-15 Expected date: Expected time: Means of arrival: Comments: EMS Analia Archibald RN 04/01/25 2215 RAFT MACHINIST documented in this encounter Miscellaneous Notes * Plan of Care - Karrie Hackett RN - 04/06/2025 5:20 PM CST Problem: Discharge Planning Goal: Understanding discharge needs will improve Outcome: Adequate for Discharge Problem: Skin Integrity Impairment Risk Goal: Mobility will improve Outcome: Adequate for Discharge Goal: Understanding of ways to prevent future skin breakdown will improve Outcome: Adequate for Discharge Goal: Nutritional status will improve Outcome: Adequate for Discharge Goal: Risk for impaired skin integrity will decrease Outcome: Adequate for Discharge Problem: Fall Risk Goal: Ability to state ways to decrease the risk of falls will improve Outcome: Adequate for Discharge Goal: Will remain free from falls Outcome: Adequate for Discharge Goal: Will remain free from injury from falls Outcome: Adequate for Discharge Problem: Isolation Lack of Knowledge Goal: Knowledge of risk factors and measures for prevention of condition will improve Outcome: Adequate for Discharge Problem: Isolation Physical Regulation Goal: Isolation- Spread of further infection will be prevented Outcome: Adequate for Discharge Goal: Isolation- Complications related to the disease process, condition, or treatment will be avoided or minimized. Outcome: Adequate for Discharge Problem: Lack of Knowledge Goal: Ability to develop a pain control plan will improve Outcome: Adequate for Discharge Problem: Medication Goal: Satisfaction with pain management medication regimen will improve Outcome: Adequate for Discharge Problem: Sensory Goal: Ability to identify factors that increase pain levels will improve while working to decrease the patient's pain levels Outcome: Adequate for Discharge Problem: Coping Goal: Ability to cope will improve Outcome: Adequate for Discharge Problem: Health Behavior Goal: Identification of resources available to assist in meeting health care needs will improve Outcome: Adequate for Discharge Goals: Clinical Goals for the Shift: VSS, safety and comfort, I/O [facility] Patient Cent[facility] Goal for Treatment: safe d/c Summary: VSS, dyspnea monitored, I&Os monitored. Patient to leave by EMS to [facility]. Report given to Ya at 1600. Patient reported discomfort around malone, MD notified and lidocaine applied. Patient worked with PT and OT. Call light in reach. RAFT MACHINIST * Assessment & Plan Note - Marilyn Ardon MD - 04/06/2025 10:50 AM AIRCRAFT MACHINIST Associated Problem(s): Urinary retention - Cont home finasteride and flomax. - New urinary retention on 04/05, with discomfort. Bladder scan 600+. Persistent retention after straight cath - Malone placed last night - Will likely need repeat void trial at rehab RAFT MACHINIST * Assessment & Plan Note - Marilyn Ardon MD - 04/06/2025 10:50 AM AIRCRAFT MACHINIST Associated Problem(s): Goals of care, counseling/discussion No family members so POA is friend, Wei Tejada . - Code status was confirmed to be DNR/DNI on 04/02 by admitting physician RAFT MACHINIST * Assessment & Plan Note - Marilyn Ardon MD - 04/06/2025 10:50 AM AIRCRAFT MACHINIST Associated Problem(s): ABLA (acute blood loss anemia) Patient presented with recurrent painless hematochezia. Has had this issue since almost 2018. Last eval was with sigmoidoscopy in Jun this year but prep was sub optimal however no active bleeding wasseen. Was also recently admitted at OSH (no scopes or transfusions over there) and discharged few days before presenting to [facility]. Last colonoscopy was 2017. He is not on AC but only takes baby asa for secondary prevention. Here, his hgb was found to be 7.7 from baseline of 10[address] A/P W WO was done on admission no active bleeding was seen but showed extensive diverticulosis. GI consulted. Recent Labs Lab Units 04/06/25 0859 04/05/25 2351 04/05/25 0659 04/04/25 2100 04/04/25 0949 HEMOGLOBIN g/dL 8.0* 7.1* 7.8* 7.5* 7.9* Plan: - GI deferred colonoscopy given improvement in Hgb, no further hematochezia - Arrange outpatient CRS referral for candidacy of partial colectomy option, although patient does not seem to like the idea of surgery - PPI BID - Transfuse for Hgb < 7 - If bleeding recurs, obtain stat CTA RAFT MACHINIST * Assessment & Plan Note - Marilyn Ardon MD - 04/06/2025 10:50 AM AIRCRAFT MACHINIST Associated Problem(s): Lower GI bleed Patient presented with recurrent painless hematochezia. Has had this issue since almost 2019. Last eval was with sigmoidoscopy in Jun this year but prep was sub optimal however no active bleeding wasseen. Was also recently admitted at OSH (no scopes or transfusions over there) and discharged few days before presenting to [facility]. Last colonoscopy was 2017. He is not on AC but only takes baby asa for secondary prevention. Here, his hgb was found to be 7.7 from baseline [address] A/P W WO was done on admission no active bleeding was seen but showed extensive diverticulosis. GI consulted. Recent Labs Lab Units 04/06/25 0859 04/05/25 2351 04/05/25 0659 04/04/25 2100 04/04/25 0949 HEMOGLOBIN g/dL 8.0* 7.1* 7.8* 7.5* 7.9* Plan: - GI deferred colonoscopy given improvement in Hgb, no further hematochezia - Arrange outpatient CRS referral for candidacy of partial colectomy option, although patient does not seem to like the idea of surgery - PPI BID - Transfuse for Hgb < 7 - If bleeding recurs, obtain stat CTA RAFT MACHINIST * Assessment & Plan Note - Marilyn Ardon MD - 04/06/2025 10:50 AM AIRCRAFT MACHINIST Associated Problem(s): History of diverticulosis Patient presented with recurrent painless hematochezia. Has had this issue since almost 2018. Last eval was with sigmoidoscopy in Jun this year but prep was sub optimal however no active bleeding wasseen. Was also recently admitted at OSH (no scopes or transfusions over there) and discharged few days before presenting to [facility]. Last colonoscopy was 2017. He is not on AC but only takes baby asa for secondary prevention. Here, his hgb was found to be 7.7 [address] baseline [address] A/P W WO was done on admission no active bleeding was seen but showed extensive diverticulosis. GI consulted. Recent Labs Lab Units 04/06/25 0859 04/05/25 2351 04/05/25 0659 04/04/25 2100 04/04/25 0949 HEMOGLOBIN g/dL 8.0* 7.1* 7.8* 7.5* 7.9* Plan: - GI deferred colonoscopy given improvement in Hgb, no further hematochezia - Arrange outpatient CRS referral for candidacy of partial colectomy option, although patient does not seem to like the idea of surgery - PPI BID - Transfuse for Hgb < 7 - If bleeding recurs, obtain stat CTA RAFT MACHINIST * Assessment & Plan Note - Marilyn Ardon MD - 04/06/2025 10:50 AM AIRCRAFT MACHINIST Associated Problem(s): Chronic respiratory failure with hypoxia (HCC) On 3 L O2 at baseline. No PFTs in chart. No signs of acute exacerbation but he has chronic dyspnea.On Pulmicort and albuterol at home. CXR with hyperinflated lungs from emphysema. Suspect his COPD is significantly advance given thin body habitus and pursed lip breathing technique. No other explanation of this dyspnea (no fluid overload currently, no PNA, no PE suspected) but anemia could be furth er contributing to the dyspnea. Plan: - Continue duonebz ATC and PRN - Continue pulmicort, diuretic (withholding parameters) - Discussed qualification for BiPAP but he declined as he stated he had tried it before and did nottolerate - Started on roxanol which helped significantly in his dyspnea, he reported feeling like a new person. We discussed risk and benefit if continuing it as a PRN and I counseled on side effects including sedation, constipation, risk of dependence. He would benefit from palliative care referral on discharge. RAFT MACHINIST * Assessment & Plan Note - Marilyn Ardon MD - 04/06/2025 10:50 AM AIRCRAFT MACHINIST Associated Problem(s): History of COPD On 3 L O2 at baseline. No PFTs in chart. No signs of acute exacerbation but he has chronic dyspnea.On Pulmicort and albuterol at home. CXR with hyperinflated lungs from emphysema. Suspect his COPD is significantly advance given thin body habitus and pursed lip breathing technique. No other explanation of this dyspnea (no fluid overload currently, no PNA, no PE suspected) but anemia could be furth er contributing to the dyspnea. Plan: - Continue duonebz ATC and PRN - Continue pulmicort, diuretic (withholding parameters) - Discussed qualification for BiPAP but he declined as he stated he had tried it before and did nottolerate - Started on roxanol which helped significantly in his dyspnea, he reported feeling like a new person. We discussed risk and benefit if continuing it as a PRN and I counseled on side effects including sedation, constipation, risk of dependence. He would benefit from palliative care referral on discharge. RAFT MACHINIST * Assessment & Plan Note - Marilyn Ardon MD - 04/06/2025 10:50 AM AIRCRAFT MACHINIST Associated Problem(s): Chronic dyspnea, improved On 3 L O2 at baseline. No PFTs in chart. No signs of acute exacerbation but he has chronic dyspnea.On Pulmicort and albuterol at home. CXR with hyperinflated lungs from emphysema. Suspect his COPD is significantly advance given thin body habitus and pursed lip breathing technique. No other explanation of this dyspnea (no fluid overload currently, no PNA, no PE suspected) but anemia could be furt her contributing to the dyspnea. Plan: - Continue duonebz ATC and PRN - Continue pulmicort, diuretic (withholding parameters) - Discussed qualification for BiPAP but he declined as he stated he had tried it before and did nottolerate - Started on roxanol which helped significantly in his dyspnea, he reported feeling like a new person. We discussed risk and benefit if continuing it as a PRN and I counseled on side effects including sedation, constipation, risk of dependence. He would benefit from palliative care referral on discharge. RAFT MACHINIST * Assessment & Plan Note - Marilyn Ardon MD - 04/06/2025 10:50 AM AIRCRAFT MACHINIST Associated Problem(s): Chronic HFrEF (heart failure with reduced ejection fraction) (HCC) OSH TTE 07/2024 w/ EF 35-40%. Home meds include coreg and lasix 40 BID. Appears euvolumic without signs of exacerbation. CXR on 04/02 without edema. Plan: - Cont home lasix to prevent fluid overload, withholding parameters for low BP, his BP has been tolerating well so far - Keep holding coreg for now, monitor BP and could resume later on based on trend RAFT MACHINIST * Assessment & Plan Note - Marilyn Ardon MD - 04/06/2025 10:50 AM AIRCRAFT MACHINIST Associated Problem(s): History of CAD (coronary artery disease) - S/p CABG and ICD. Cont home asa and statin. RAFT MACHINIST * Assessment & Plan Note - Marilyn Ardon MD - 04/06/2025 10:50 AM AIRCRAFT MACHINIST Associated Problem(s): History of ventricular tachycardia - S/p CABG and ICD. Cont home asa and statin. RAFT MACHINIST * Assessment & Plan Note - Marilyn Ardon MD - 04/06/2025 10:50 AM AIRCRAFT MACHINIST Associated Problem(s): History of anxiety - Resuming home xanax and zoloft. RAFT MACHINIST * Assessment & Plan Note - Marilyn Ardon MD - 04/06/2025 10:50 AM AIRCRAFT MACHINIST Associated Problem(s): History of BPH - Cont home finasteride and flomax. - New urinary retention on 04/05, with discomfort. Bladder scan 600+. Persistent retention after straight cath - Malone placed last night - Will likely need repeat void trial at rehab RAFT MACHINIST * Plan of Care - Laura Joiner, LAND SURVEYOR ASSISTANT - 04/06/2025 7:29 AM CST Respiratory Medication Plan Situation: Patient is currently scheduled to receive Nebulized Duo-Neb (Albuterol/Ipratropium), Q6 While Awakeand Nebulized Pulmicort, BID. Home Medications: Current Outpatient Medications Medication Instructions ALPRAZolam (XANAX) 0.25 mg, oral, Nightly PRN atorvastatin (LIPITOR) 40 mg, Nightly budesonide (PULMICORT) 0.25 mg/2 mL nebulizer solution carvediloL (COREG) 3.125 mg, 2 times daily famotidine (PEPCID) 20 mg, oral, 2 times daily finasteride (PROSCAR) 5 mg, oral, Daily furosemide (LASIX) 40 mg, 2 times daily ipratropium-albuteroL (DUO-NEB) 0.5-2.5 mg/3 mL nebulizer solution INHALE 3 ML 4 TIMES A DAY BY NEBULIZATION ROUTE NEEDED FOR 10 DAYS. potassium chloride ER 20 mEq CR tablet sertraline (ZOLOFT) 50 mg, 2 times daily tamsulosin (FLOMAX) 0.4 mg extended release capsule 2 tablets, Daily Bronchodilator Assessment Score: 8 Pulmonary Status Pulmonary Impairment (Acute or Chronic) Surgical Status No Surgery Chest X-Ray Clear or Not Indicated Resp. Pattern Dyspnea on Exertion, Irregular Pattern, Respiratory Rate 26-30 Mental Status Alert, Oriented, Cooperative Cough Strong, Non-Productive Breath Sounds Decreased Bilaterally/Coarse Level of Activity Ambulatory O2 Requirement 1-3 Liters or < 35% Oxygen therapy: SpO2 98 % O2 Therapy Supplemental oxygen Patient Vitals: Pulse 74 Resp. Rate 20 Respiratory Assessment: Resp. Effort Unlabored Depth & Rhythm Regular Chest Assessment Symmetrical BRONCHODILATOR EVALUATION /ASSESSMENT SCORE 0-6 Q4 PRN Therapy* or Home Regimen, Intermittent wheezing, or SOB 7-13 QID Therapy Wheezing or periodic SOB 14-19 Q6 Therapy Increased wheezing and/or SOB 20-26 Q4 Therapy Increased wheezing and/or SOB, Difficulty sleeping >26 Contact MD/JANNETH Severe Wheezing, SOB, Difficulty sleeping Note: Score gives a general indication of pulmonary risk. Clinical judgement may yield a different recommended frequency. Toleration: Patient tolerated treatment well. Patient Plan: I have spoken with the patient, and we have agreed to keep the current orders, without change. RT will continue to monitor the patient's progress. RAFT MACHINIST * Assessment & Plan Note - Kathryn Phelps PA - 04/05/2025 3:48 PM AIRCRAFT MACHINIST Associated Problem(s): Chronic HFrEF (heart failure with reduced ejection fraction) ([facility]) OSH TTE 07/2024 w/ EF 35-40%. Home meds include coreg and lasix 40 BID. Appears euvolumic without signs of exacerbation. CXR on 04/02 without edema. Plan: - Cont home lasix to prevent fluid overload, withholding parameters for low BP, his BP has been tolerating well so far - Keep holding coreg for now, monitor BP and could resume later on based on trend RAFT MACHINIST * Assessment & Plan Note - Kathryn Phelps PA - 04/05/2025 3:48 PM AIRCRAFT MACHINIST Associated Problem(s): History of CAD (coronary artery disease) - S/p CABG and ICD. Cont home asa and statin. RAFT MACHINIST * Assessment & Plan Note - Kathryn Phelps PA - 04/05/2025 3:48 PM AIRCRAFT MACHINIST Associated Problem(s): History of ventricular tachycardia - S/p CABG and ICD. Cont home asa and statin. RAFT MACHINIST * Assessment & Plan Note - Kathryn Phelps PA - 04/05/2025 3:48 PM AIRCRAFT MACHINIST Associated Problem(s): History of anxiety - Resuming home xanax and zoloft. RAFT MACHINIST * Assessment & Plan Note - Kathryn Phelps PA - 04/05/2025 3:48 PM AIRCRAFT MACHINIST Associated Problem(s): History of BPH - Cont home finasteride and flomax. - New urinary retention on 04/05, with discomfort. Bladder scan 600+ - Bladder scan/ Straight cath q4 PRN RAFT MACHINIST * Assessment & Plan Note - Kathryn Phelps PA - 04/05/2025 3:48 PM AIRCRAFT MACHINIST Associated Problem(s): Urinary retention - Cont home finasteride and flomax. - New urinary retention on 04/05, with discomfort. Bladder scan 600+ - Bladder scan/ Straight cath q4 PRN RAFT MACHINIST * Assessment & Plan Note - Kathryn Phelps PA - 04/05/2025 3:48 PM AIRCRAFT MACHINIST Associated Problem(s): Goals of care, counseling/discussion No family members so POA is friend, Wei Tejada . - Code status was confirmed to be DNR/DNI on 04/02 by admitting physician RAFT MACHINIST * Assessment & Plan Note - Kathryn Phelps PA - 04/05/2025 3:48 PM AIRCRAFT MACHINIST Associated Problem(s): ABLA (acute blood loss anemia) Patient presented with recurrent painless hematochezia. Has had this issue since almost 2018. Last eval was with sigmoidoscopy in Jun this year but prep was sub optimal however no active bleeding wasseen. Was also recently admitted at OSH (no scopes or transfusions over there) and discharged few days before presenting to [facility]. Last colonoscopy was 2017. He is not on AC but only takes baby asa for secondary prevention. Here, his hgb was found to be 7.7 from baseline of 10. CT A/P W WO was done on admission no active bleeding was seen but showed extensive diverticulosis. GI consulted. Recent Labs Lab Units 04/05/25 0659 04/04/25 2100 04/04/25 0949 04/03/25202104/03/25 0401 HEMOGLOBIN g/dL 7.8* 7.5* 7.9* 8.1* 7.8* Plan: - GI deferred colonoscopy today given improvement in Hgb, no further hematochezia - Arrange outpatient CRS referral for candidacy of partial colectomy option, although patient does not seem to like the idea of surgery - C diff pending (had diarrhea initially and has hx of cdfif before and had recent abx exposure forCOPD ex treatment) - PPI BID - CBC BID, hgb remains stable thus far in the 7-8 range - Transfuse for Hgb < 7 - If bleeding recurs, obtain stat CTA RAFT MACHINIST * Assessment & Plan Note - Kathryn Phelps PA - 04/05/2025 3:48 PM AIRCRAFT MACHINIST Associated Problem(s): Lower GI bleed Patient presented with recurrent painless hematochezia. Has had this issue since almost 2018. Last eval was with sigmoidoscopy in Jun this year but prep was sub optimal however no active bleeding wasseen. Was also recently admitted at OSH (no scopes or transfusions over there) and discharged few days before presenting to [facility]. Last colonoscopy was 2017. He is not on AC but only takes baby asa for secondary prevention. Here, his hgb was found to be 7.7 from baseline of 10[address] A/P W WO was done on admission no active bleeding was seen but showed extensive diverticulosis. GI consulted. Recent Labs Lab Units 04/05/25 0659 04/04/25 2100 04/04/25 0949 04/03/25202104/03/25 0401 HEMOGLOBIN g/dL 7.8* 7.5* 7.9* 8.1* 7.8* Plan: - GI deferred colonoscopy today given improvement in Hgb, no further hematochezia - Arrange outpatient CRS referral for candidacy of partial colectomy option, although patient does not seem to like the idea of surgery - C diff pending (had diarrhea initially and has hx of cdfif before and had recent abx exposure forCOPD ex treatment) - PPI BID - CBC BID, hgb remains stable thus far in the 7-8 range - Transfuse for Hgb < 7 - If bleeding recurs, obtain stat CTA RAFT MACHINIST * Assessment & Plan Note - Kathryn Phelps PA - 04/05/2025 3:48 PM AIRCRAFT MACHINIST Associated Problem(s): History of diverticulosis Patient presented with recurrent painless hematochezia. Has had this issue since almost 2018. Last eval was with sigmoidoscopy in Jun this year but prep was sub optimal however no active bleeding wasseen. Was also recently admitted at OSH (no scopes or transfusions over there) and discharged few days before presenting to [facility]. Last colonoscopy was 2017. He is not on AC but only takes baby asa for secondary prevention. Here, his hgb was found to be 7.7 from baseline of [address] A/P W WO was done on admission no active bleeding was seen but showed extensive diverticulosis. GI consulted. Recent Labs Lab Units 04/05/25 0659 04/04/25 2100 04/04/25 0949 04/03/25202104/03/25 0401 HEMOGLOBIN g/dL 7.8* 7.5* 7.9* 8.1* 7.8* Plan: - GI deferred colonoscopy today given improvement in Hgb, no further hematochezia - Arrange outpatient CRS referral for candidacy of partial colectomy option, although patient does not seem to like the idea of surgery - C diff pending (had diarrhea initially and has hx of cdfif before and had recent abx exposure forCOPD ex treatment) - PPI BID - CBC BID, hgb remains stable thus far in the 7-8 range - Transfuse for Hgb < 7 - If bleeding recurs, obtain stat CTA RAFT MACHINIST * Assessment & Plan Note - Kathryn Phelps PA - 04/05/2025 3:48 PM AIRCRAFT MACHINIST Associated Problem(s): Chronic respiratory failure with hypoxia (HCC) On 3 L O2 at baseline. No PFTs in chart. No signs of acute exacerbation but he has chronic dyspnea.On Pulmicort and albuterol at home. CXR with hyperinflated lungs from emphysema. Suspect his COPD is significantly advance given thin body habitus and pursed lip breathing technique. No other explanation of this dyspnea (no fluid overload currently, no PNA, no PE suspected) but anemia could be furth er contributing to the dyspnea. Plan: - Continue duonebz ATC and PRN - Continue pulmicort, diuretic (withholding parameters) - Discussed qualification for BiPAP but he declined as he stated he had tried it before and did nottolerate - Started on roxanol which helped significantly in his dyspnea, he reported feeling like a new person. We discussed risk and benefit if continuing it as a PRN and I counseled on side effects including sedation, constipation, risk of dependence. He would benefit from palliative care referral on discharge. RAFT MACHINIST * Assessment & Plan Note - Kathryn Phelps PA - 04/05/2025 3:48 PM AIRCRAFT MACHINIST Associated Problem(s): History of COPD On 3 L O2 at baseline. No PFTs in chart. No signs of acute exacerbation but he has chronic dyspnea.On Pulmicort and albuterol at home. CXR with hyperinflated lungs from emphysema. Suspect his COPD is significantly advance given thin body habitus and pursed lip breathing technique. No other explanation of this dyspnea (no fluid overload currently, no PNA, no PE suspected) but anemia could be furth er contributing to the dyspnea. Plan: - Continue duonebz ATC and PRN - Continue pulmicort, diuretic (withholding parameters) - Discussed qualification for BiPAP but he declined as he stated he had tried it before and did nottolerate - Started on roxanol which helped significantly in his dyspnea, he reported feeling like a new person. We discussed risk and benefit if continuing it as a PRN and I counseled on side effects including sedation, constipation, risk of dependence. He would benefit from palliative care referral on discharge. RAFT MACHINIST * Assessment & Plan Note - Kathryn Phelps PA - 04/05/2025 3:48 PM AIRCRAFT MACHINIST Associated Problem(s): Chronic dyspnea, improved On 3 L O2 at baseline. No PFTs in chart. No signs of acute exacerbation but he has chronic dyspnea.On Pulmicort and albuterol at home. CXR with hyperinflated lungs from emphysema. Suspect his COPD is significantly advance given thin body habitus and pursed lip breathing technique. No other explanation of this dyspnea (no fluid overload currently, no PNA, no PE suspected) but anemia could be furth er contributing to the dyspnea. Plan: - Continue duonebz ATC and PRN - Continue pulmicort, diuretic (withholding parameters) - Discussed qualification for BiPAP but he declined as he stated he had tried it before and did nottolerate - Started on roxanol which helped significantly in his dyspnea, he reported feeling like a new person. We discussed risk and benefit if continuing it as a PRN and I counseled on side effects including sedation, constipation, risk of dependence. He would benefit from palliative care referral on discharge. RAFT MACHINIST * Consults, Subsequent - Joss Anguiano MD - 04/05/2025 9:41 AM AIRCRAFT MACHINIST General GI Subsequent Consult Subjective Chief complaint: Hematochezia Reason for consult: GIB Interval History: - Patient presented with recurrent painless hematochezia. - He reports over 8+ episodes of prior diverticular bleeds. This presentation is similar. - Hgb was found to be 7.7 (baseline 10). Hgb today is 7.8 from 7.9 yesterday - Vitals remain stable - Iron profile Fe 40, TIBC 219, TSAT 18 - CT A/P W WO was done on admission no active bleeding was seen but showed extensive diverticulosis. - No further hematochezia since in 48h Objective Physical Exam: Vitals: 24hr Min/Max: Temp Min: 36.5 ??C (97.7 ??F) Max: 36.8 ??C (98.2 ??F) Pulse Min: 72 Max: 91 BP Min: 100/48 Max: 128/51 Resp Min: 16 Max: 18 SpO2 Min: 99 % Max: 100 % Most Recent : Vitals: 04/05/25 0819 BP: 128/51 Pulse: 91 Resp: 16 Temp: 36.5 ??C (97.7 ??F) SpO2: 99% No acute distress Breathing comfortably on room air Extremities well perfused Abdomen is non tender, non-distended, no masses No hepatosplenomegaly Non-icteric, no rash on exposed skin A/Ox3, no apparent neurologic deficits I/O last 2 completed shifts: In: 876.7 [P.O.:740; I.V.:30; IV Piggyback:106.7] Out: 500 [Urine:500] No intake/output data recorded. Lab/Radiology/Diagnostic Review: Recent Labs Lab Units 04/05/25 0836 04/05/25 0659 04/04/25 2100 04/04/25 0949 04/03/25 2022 04/03/25 0401 04/02/25 1930 04/01/25 2342 04/01/25 2251 WBC K/cumm -- 14.23* 11.25* 11.45* 12.92* < > 10.91* 10.71* < > 14.47* HEMOGLOBIN g/dL -- 7.8* 7.5* 7.9* 8.1* < > 8.2* 8.2* < > 10.1* HEMATOCRIT % -- 24.6* 24.2* 24.7* 24.8* < > 25.7* 25.3* < > 30.9* PLATELETS K/cumm -- 275 249 233 248 < > 251 250 < > 282 SODIUM mmol/L -- -- 141 -- 140 -- 143 < > 144 POTASSIUM PLASMA mmol/L -- -- 3.7 -- 3.9 -- 3.5 < > 4.3 CHLORIDE mmol/L -- -- 99 -- 99 -- 100 < > 101 CO2 mmol/L -- -- 37* -- 35* -- 36* < > 34* ANIONGAP mmol/L -- -- 5 -- 6 -- 7 < > 9 GLUCOSE mg/dL -- -- 91 -- 134 -- 165 < > 145 POC GLUCOSE MONITOR mg/dL 114 -- -- -- -- -- -- -- -- BUN SERUM mg/dL -- -- 20 -- 18 -- 18 < > 19 CREATININE mg/dL -- -- 1.18 -- 1.03 -- 1.07 < > 1.21 CREATININE POC -- -- -- -- -- -- -- < > -- CALCIUM mg/dL -- -- 8.8 -- 8.5 -- 8.9 < > 9.0 ALBUMIN g/dL -- -- -- -- -- -- -- -- 4.1 BILIRUBIN TOTAL mg/dL -- -- -- -- -- -- -- -- 1.0 ALK PHOS Units/L -- -- -- -- -- -- -- -- 86 ALT Units/L -- -- -- -- -- -- -- -- 17 AST Units/L -- -- -- -- -- -- -- -- 22 INR -- -- -- -- -- -- -- -- 0.98 < > = values in this interval not displayed. Flex sig 06/26/2024 - Preparation of the colon was poor. Limited evaluation due to stool and blood. - Mild inflammatory changes in descending colon and rectum. - Diverticulosis without active hemorrhage. - No specimens collected. EGD 02/27/2020: - Normal esophagus. - Normal stomach. - Normal examined duodenum. - No specimens collected. Colonoscopy 02/27/2020: - Diverticulosis in the sigmoid colon. - Internal hemorrhoids. - One 5 mm polyp in the transverse colon, removed with a cold snare Colonoscopy 02/20/2018 Colonoscopy showed a few small polyps and diverticuli. There is no active bleeding at the time. Assessment/Plan Principal Problem: ABLA (acute blood loss anemia) Active Problems: History of CAD (coronary artery disease) Primary hypertension Chronic HFrEF (heart failure with reduced ejection fraction) ([facility]) History of anxiety Chronic respiratory failure with hypoxia ([facility]) Goals of care, counseling/discussion Lower GI bleed History of diverticulosis History of ventricular tachycardia History of COPD History of BPH Chronic dyspnea, improved #Hematochezia - Resolved #Extensive colonic diverticulosis #Iron Deficiency Anemia This is a 84 y.o. 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 Prior cdiff. BPH. GI consulted for hematochezia. Patient with hematochezia and s/o extensive colonic diverticulosis on CT scan upon admission without any s/o active GIB. Patient hemodynamically stable, hemoglobin 10 > 7.7. Last flex sig 06/2024 diverticulosis w/o active bleeding. Prior colonoscopy in 2018 without active bleeding, small polyps, and extensive diverticulosis. No blood thinners, on baby ASA. Suspect diverticular bleed, which has now resolved. Plan: - Trend CBC daily - Transfuse for Hgb of > 7 (Hgb > 8 in the setting of ACS/HF/chest pain), platelets > 50, INR < 2 if able - Arrange with colorectal surgery outpatient to discuss candidacy for partial colectomy given recurrent diverticular bleeding - We will sign off Thank you for involving us in the care of this patient. If you have any questions, please page the general GI phone at anytime. Joss Anguiano MD Gastroenterology Fellow Cosigned by Burke Morocho MD at 04/06/2025 9:39 AM AIRCRAFT MACHINIST RAFT MACHINIST RAFT MACHINIST Associated attestation - Burke Morocho MD - 04/06/2025 9:39 AM AIRCRAFT MACHINIST The resident/fellow saw and examined the patient, we discussed their findings, and I am in agreement with the plan based on the discussion with the resident/fellow. I did not personally examine the patient. * Plan of Care - Audrey Sousa RN - 2025 11:24 PM CST Goals: Clinical Goals for the Shift: vss, pain control, I&O, comfort rounds [employer]ester [employer] Patient Centered Goal for Treatment: safe d/c Summary: Problem: Discharge Planning Goal: Understanding discharge needs will improve Outcome: Progressing Flowsheets (Taken 04/04/20252322) Understanding of discharge needs will improve: Identify discharge learning needs (meds, wound care, etc.) Collaborate with case management interdisciplinary team Identify discharge barriers Problem: Skin Integrity Impairment Risk Goal: Mobility will improve Outcome: Progressing Flowsheets (Taken 04/04/20252322) Mobility will improve: Encourage mobilization to extent of ability, assist with range of motion as needed Assess circulation, sensation and/or motion of extremity Encourage turning and repositioning, assist as needed Goal: Understanding of ways to prevent future skin breakdown will improve Outcome: Progressing Flowsheets (Taken 04/04/20252322) Understanding of ways to prevent future skin breakdown will improve: Discuss treatments to protect skin integrity Discuss treatment plan for related conditions Goal: Nutritional status will improve Outcome: Progressing Flowsheets (Taken 04/04/20252322) Nutritional status will improve: Assess nutritional status Encourage fluid intake Encourage nutritional intake Monitor intake and output Goal: Risk for impaired skin integrity will decrease Outcome: Progressing Flowsheets (Taken 04/04/20252322) Risk for impaired skin integrity will decrease: Monitor skin integrity, appearance and temperature Implement precautions to protect skin integrity Problem: Fall Risk Goal: Ability to state ways to decrease the risk of falls will improve Outcome: Progressing Goal: Will remain free from falls Outcome: Progressing Flowsheets (Taken 04/04/20252322) Will remain free from falls: Assess risk factors for falls Collaborate with other disciplines Goal: Will remain free from injury from falls Outcome: Progressing Problem: Isolation Lack of Knowledge Goal: Knowledge of risk factors and measures for prevention of condition will improve Outcome: Progressing Flowsheets (Taken 04/04/20252322) Knowledge of risk factors and measures for prevention of condition will improve: Discuss risk of infection Discuss signs and symptoms of infection Problem: Isolation Physical Regulation Goal: Isolation- Spread of further infection will be prevented Outcome: Progressing Goal: Isolation- Complications related to the disease process, condition, or treatment will be avoided or minimized. Flowsheets (Taken 04/04/20252322) Complications related to the disease process, condition, or treatment will be avoided or minimized: Assess emotional status Provide emotional support Implement safety precautions RAFT MACHINIST * Plan of Care - Yuliet Adamson RN - 2025 6:46 PM CST Goals: Clinical Goals for the Shift: VSS, comfort and safety, strict I/O, sleep hygiene and anxiety management, respiratory hygiene Senior Living Patient Centered Goal for Treatment: safe d/c Problem: Discharge Planning Goal: Understanding discharge needs will improve Outcome: Progressing Problem: Skin Integrity Impairment Risk Goal: Mobility will improve Outcome: Progressing Goal: Understanding of ways to prevent future skin breakdown will improve Outcome: Progressing Goal: Nutritional status will improve Outcome: Progressing Goal: Risk for impaired skin integrity will decrease Outcome: Progressing Problem: Fall Risk Goal: Ability to state ways to decrease the risk of falls will improve Outcome: Progressing Goal: Will remain free from falls Outcome: Progressing Goal: Will remain free from injury from falls Outcome: Progressing Problem: Isolation Lack of Knowledge Goal: Knowledge of risk factors and measures for prevention of condition will improve Outcome: Progressing Problem: Isolation Physical Regulation Goal: Isolation- Spread of further infection will be prevented Outcome: Progressing Goal: Isolation- Complications related to the disease process, condition, or treatment will be avoided or minimized. Outcome: Progressing RAFT MACHINIST * Hospital Course - Kathryn Phelps PA - 2025 3:50 PM AIRCRAFT MACHINIST #ABLA (acute blood loss anemia) #Lower GI bleed #History of diverticulosis Patient presented with recurrent painless hematochezia. Has had this issue since almost 2018. Last eval was with sigmoidoscopy in jun this year but prep was sub optimal however no active bleeding wasseen. Was also recently admitted at OSH (no scopes or transfusions over there) and discharged few days before presenting to [facility] this admission. Last colonoscopy was 2017. He is not on AC but only take s baby ASA for secondary prevention. Here, his Hgb was found to be 7.7 from baseline of 10. CT A/P W WO was done on admission no active bleeding was seen but showed extensive diverticulosis. During his hospital course, his hgb remained stable in the 7-8 range and did not have recurrence of bleed. GI consulted, considered colonoscopy but was deferred because Hgb continued to improve and hematochezia improved. However, recommended CRS referral on discharge for surgical options (partial colectomy) #Chronic respiratory failure with hypoxia #History of COPD #Chronic dyspnea, improved On 3 L O2 at baseline. No PFTs in chart. No signs of acute exacerbation but he has chronic dyspnea.On Pulmicort and albuterol at home. CXR with hyperinflated lungs from emphysema. Suspect his COPD is significantly advance given thin body habitus and pursed lip breathing technique. No other explanation of this dyspnea (no fluid overload, no PNA, no PE suspected) but anemia could be further contributing to the dyspnea. He was managed with his usual home nebulizers (duo neb and pulmicort). Qualification for BiPAP was discussed with patient but he declined as he stated he had tried it before anddid not tolerate. He was Started on roxanol which helped significantly in his dyspnea, he reported feeling like a new person. Risk and benefit was discussed regarding continuing it as a PRN and was counseled on side effects including sedation, constipation, risk of dependence. He would benefit froma short term prescription of roxanol and palliative care referral on discharge #Chronic HFrEF (heart failure with reduced ejection fraction) OSH TTE 07/2024 w/ EF 35-40%. Home meds include coreg and lasix 40 BID. Remained euvolumic without signs of exacerbation. CXR on 04/02 without edema. He was continued on his home lasix to prevent fluid overload, withholding parameters for low BP, but his home coreg was hild due to borderline BP. Eventually it was resumed #History of CAD (coronary artery disease) #History of ventricular tachycardia S/p CABG and ICD. Continued home asa and statin. #History of anxiety Continued home xanax and zoloft. #History of BPH Continued home finasteride and flomax. RAFT MACHINIST RAFT MACHINIST RAFT MACHINIST * Consults, Subsequent - Anna Cornejo MD - 2025 2:00 PM AIRCRAFT MACHINIST General GI Subsequent Consult Subjective Chief complaint: Hematochezia Reason for consult: GIB Interval History: - Patient presented with recurrent painless hematochezia. - He reports over 8+ episodes of prior diverticular bleeds. This presentation is similar. - Hgb was found to be 7.7 (baseline 10). Hgb today is 7.9 - Vitals remain stable - Iron profile Fe 40, TIBC 219, TSAT 18 - CT A/P W WO was done on admission no active bleeding was seen but showed extensive diverticulosis. - No further hematochezia since yesterday Objective Physical Exam: Vitals: 24hr Min/Max: Temp Min: 36.4 ??C (97.5 ??F) Max: 36.8 ??C (98.2 ??F) Pulse Min: 69 Max: 94 BP Min: 100/48 Max: 126/43 Resp Min: 16 Max: 20 SpO2 Min: 93 % Max: 100 % Most Recent : Vitals: 04/04/25 1650 BP: 100/48 Pulse: 72 Resp: 18 Temp: 36.8 ??C (98.2 ??F) SpO2: 100% No acute distress Breathing comfortably on room air Extremities well perfused Abdomen is non tender, non-distended, no masses No hepatosplenomegaly Non-icteric, no rash on exposed skin A/Ox3, no apparent neurologic deficits I/O last 2 completed shifts: In: 750 [P.O.:720; I.V.:30] Out: 600 [Urine:600] I/O this shift: In: 240 [P.O.:240] Out: 200 [Urine:200] Lab/Radiology/Diagnostic Review: Recent Labs Lab Units 04/04/25 0949 04/03/25202104/03/25 0401 04/02/25 1930 04/02/25 1323 04/01/25 2342 04/01/25 2251 WBC K/cumm 11.45* 12.92* 10.04* 10.91* 10.71* 10.85* < > 14.47* HEMOGLOBIN g/dL 7.9* 8.1* 7.8* 8.2* 8.2* 8.4* < > 10.1* HEMATOCRIT % 24.7* 24.8* 23.3* 25.7* 25.3* 25.4* < > 30.9* PLATELETS K/cumm 233 248 217 251 250 174 < > 282 SODIUM mmol/L -- 140 -- 143 143 -- 144 POTASSIUM PLASMA mmol/L -- 3.9 -- 3.5 4.0 -- 4.3 CHLORIDE mmol/L -- 99 -- 100 99 -- 101 CO2 mmol/L -- 35* -- 36* 35* -- 34* ANIONGAP mmol/L -- 6 -- 7 9 -- 9 GLUCOSE mg/dL -- 134 -- 165 138 -- 145 BUN SERUM mg/dL -- 18 -- 18 21 -- 19 CREATININE mg/dL -- 1.03 -- 1.07 1.02 -- 1.21 CREATININE POC -- -- -- -- -- < > -- CALCIUM mg/dL -- 8.5 -- 8.9 8.9 -- 9.0 ALBUMIN g/dL -- -- -- -- -- -- 4.1 BILIRUBIN TOTAL mg/dL -- -- -- -- -- -- 1.0 ALK PHOS Units/L -- -- -- -- -- -- 86 ALT Units/L -- -- -- -- -- -- 17 AST Units/L -- -- -- -- -- -- 22 INR -- -- -- -- -- -- 0.98 < > = values in this interval not displayed. Flex sig 06/26/2024 - Preparation of the colon was poor. Limited evaluation due to stool and blood. - Mild inflammatory changes in descending colon and rectum. - Diverticulosis without active hemorrhage. - No specimens collected. EGD 02/27/2020: - Normal esophagus. - Normal stomach. - Normal examined duodenum. - No specimens collected. Colonoscopy 02/27/2020: - Diverticulosis in the sigmoid colon. - Internal hemorrhoids. - One 5 mm polyp in the transverse colon, removed with a cold snare Colonoscopy 02/20/2018 Colonoscopy showed a few small polyps and diverticuli. There is no active bleeding at the time. Assessment/Plan Principal Problem: ABLA (acute blood loss anemia) Active Problems: History of CAD (coronary artery disease) Primary hypertension Chronic HFrEF (heart failure with reduced ejection fraction) (HCC) History of anxiety Chronic respiratory failure with hypoxia (HCC) Goals of care, counseling/discussion Lower GI bleed History of diverticulosis History of ventricular tachycardia History of COPD History of BPH Chronic dyspnea, improved #Hematochezia - Resolved #Extensive colonic diverticulosis #Iron Deficiency Anemia This is a 84 y.o. 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 Prior cdiff. BPH. GI consulted for hematochezia. Patient with hematochezia and s/o extensive colonic diverticulosis on CT scan upon admission without any s/o active GIB. Patient hemodynamically stable, hemoglobin 10 > 7.7. Last flex sig 06/2024 diverticulosis w/o active bleeding. Prior colonoscopy in 2018 without active bleeding, small polyps, and extensive diverticulosis. No blood thinners, on baby ASA. Suspect diverticular bleed, which has now resolved. Plan - Trend CBC daily - Transfuse for Hgb of > 7 (Hgb > 8 in the setting of ACS/HF/chest pain), platelets > 50, INR < 2 if able - Arrange with colorectal surgery outpatient to discuss candidacy for partial colectomy given recurrent diverticular bleeding - We will continue to follow peripherally. Thank you for involving us in the care of this patient. If you have any questions, please page the general GI phone at anytime. Anna Cornejo MD Cosigned by Burke Morocho MD at 04/05/2025 6:52 AM AIRCRAFT MACHINIST RAFT MACHINIST RAFT MACHINIST Associated attestation - Burke Morocho MD - 04/05/2025 6:52 AM AIRCRAFT MACHINIST The resident/fellow saw and examined the patient, we discussed their findings, and I am in agreement with the plan based on the discussion with the resident/fellow. I did not personally examine the patient. * Assessment & Plan Note - Jennifer Burris MD - 2025 12:16 PM AIRCRAFT MACHINIST Associated Problem(s): ABLA (acute blood loss anemia) Patient presented with recurrent painless hematochezia. Has had this issue since almost 2018. Last eval was with sigmoidoscopy in jun this year but prep was sub optimal however no active bleeding wasseen. Was also recently admitted at OSH (no scopes or transfusions over there) and discharged few days before presenting to [facility]. Last colonoscopy was 2017. He is not on AC but only takes baby asa for 2ndry prevention. Here, his hgb was found to be 7.7 from baseline of 10. CT A/P W WO was done on admission no active bleeding was seen but showed extensive diverticulosis. GI consulted. Recent Labs Lab Units 04/04/25 0949 04/03/25202104/03/25 0401 04/02/25 1930 04/02/25 1323 HEMOGLOBIN g/dL 7.9* 8.1* 7.8* 8.2* 8.2* 8.4* Plan: -GI input reviewed and appreciated, plan for colonoscopy Friday to look for active bleed vs other explainations such as cancer -If no other explanation, he would benefit from CRS referral for surgical option -Clear liquid diet and bowel prep today -C diff pending (had diarrhea initially and has hx of cdfif before and had recent abx exposure for COPD ex treatment) -PPI -CBC BID, hgb remains stable thus far in the 7-8 range -If bleeding recurs, obtain stat CTA RAFT MACHINIST * Assessment & Plan Note - Jennifer Burris MD - 2025 12:16 PM AIRCRAFT MACHINIST Associated Problem(s): Lower GI bleed Patient presented with recurrent painless hematochezia. Has had this issue since almost 2018. Last eval was with sigmoidoscopy in jun this year but prep was sub optimal however no active bleeding wasseen. Was also recently admitted at OSH (no scopes or transfusions over there) and discharged few days before presenting to [facility]. Last colonoscopy was 2017. He is not on AC but only takes baby asa for 2ndry prevention. Here, his hgb was found to be 7.7 from baseline of 10. CT A/P W WO was done on admission no active bleeding was seen but showed extensive diverticulosis. GI consulted. Recent Labs Lab Units 04/04/25 0949 04/03/25202104/03/25 0401 04/02/25 1930 04/02/25 1323 HEMOGLOBIN g/dL 7.9* 8.1* 7.8* 8.2* 8.2* 8.4* Plan: -GI input reviewed and appreciated, plan for colonoscopy Friday to look for active bleed vs other explainations such as cancer -If no other explanation, he would benefit from CRS referral for surgical option -Clear liquid diet and bowel prep today -C diff pending (had diarrhea initially and has hx of cdfif before and had recent abx exposure for COPD ex treatment) -PPI -CBC BID, hgb remains stable thus far in the 7-8 range -If bleeding recurs, obtain stat CTA RAFT MACHINIST * Assessment & Plan Note - Jennifer Burris MD - 2025 12:16 PM AIRCRAFT MACHINIST Associated Problem(s): History of diverticulosis Patient presented with recurrent painless hematochezia. Has had this issue since almost 2018. Last eval was with sigmoidoscopy in jun this year but prep was sub optimal however no active bleeding wasseen. Was also recently admitted at OSH (no scopes or transfusions over there) and discharged few days before presenting to [facility]. Last colonoscopy was 2017. He is not on AC but only takes baby asa for 2ndry prevention. Here, his hgb was found to be 7.7 from baseline of 10. CT A/P W WO was done on admission no active bleeding was seen but showed extensive diverticulosis. GI consulted. Recent Labs Lab Units 04/04/25 0949 04/03/25202104/03/25 0401 04/02/25 1930 04/02/25 1323 HEMOGLOBIN g/dL 7.9* 8.1* 7.8* 8.2* 8.2* 8.4* Plan: -GI input reviewed and appreciated, plan for colonoscopy Friday to look for active bleed vs other explainations such as cancer -If no other explanation, he would benefit from CRS referral for surgical option -Clear liquid diet and bowel prep today -C diff pending (had diarrhea initially and has hx of cdfif before and had recent abx exposure for COPD ex treatment) -PPI -CBC BID, hgb remains stable thus far in the 7-8 range -If bleeding recurs, obtain stat CTA RAFT MACHINIST * Assessment & Plan Note - Jennifer Burris MD - 2025 12:16 PM AIRCRAFT MACHINIST Associated Problem(s): Chronic respiratory failure with hypoxia (HCC) On 3 L o2 at baseline. No PFTs in chart. No signs of acute exacerbation but he has chronic dyspnea.On Pulmicort and albuterol at home. CXR with hyperinflated lungs from emphysema. Suspect his COPD is significantly advance given thin body habitus and pursed lip breathing technique. No other explanation of this dyspnea (no fluid overload currently, no PNA, no PE suspected) but anemia could be further contributing to the dyspnea. Plan: -Continue duonebz ATC and PRN -Continue home pulmicort -Continuing home diuretic (withholding parameters) -Discussed qualification for BiPAP but he declined as he stated he had tried it before and did not tolerate -Started on roxanol which helped significantly in his dyspnea, he reported feeling like a new person. We discussed risk and benefit if continuing it as a PRN and I counseled on side effects includingsedation, constipation, risk of dependence. He would benefit from palliative care referral on discharge. RAFT MACHINIST * Assessment & Plan Note - Jennifer Burris MD - 2025 12:16 PM AIRCRAFT MACHINIST Associated Problem(s): History of COPD On 3 L o2 at baseline. No PFTs in chart. No signs of acute exacerbation but he has chronic dyspnea.On Pulmicort and albuterol at home. CXR with hyperinflated lungs from emphysema. Suspect his COPD is significantly advance given thin body habitus and pursed lip breathing technique. No other explanation of this dyspnea (no fluid overload currently, no PNA, no PE suspected) but anemia could be further contributing to the dyspnea. Plan: -Continue duonebz ATC and PRN -Continue home pulmicort -Continuing home diuretic (withholding parameters) -Discussed qualification for BiPAP but he declined as he stated he had tried it before and did not tolerate -Started on roxanol which helped significantly in his dyspnea, he reported feeling like a new person. We discussed risk and benefit if continuing it as a PRN and I counseled on side effects includingsedation, constipation, risk of dependence. He would benefit from palliative care referral on discharge. RAFT MACHINIST * Assessment & Plan Note - Jennifer Burris MD - 2025 12:16 PM AIRCRAFT MACHINIST Associated Problem(s): Chronic dyspnea, improved On 3 L o2 at baseline. No PFTs in chart. No signs of acute exacerbation but he has chronic dyspnea.On Pulmicort and albuterol at home. CXR with hyperinflated lungs from emphysema. Suspect his COPD is significantly advance given thin body habitus and pursed lip breathing technique. No other explanation of this dyspnea (no fluid overload currently, no PNA, no PE suspected) but anemia could be further contributing to the dyspnea. Plan: -Continue duonebz ATC and PRN -Continue home pulmicort -Continuing home diuretic (withholding parameters) -Discussed qualification for BiPAP but he declined as he stated he had tried it before and did not tolerate -Started on roxanol which helped significantly in his dyspnea, he reported feeling like a new person. We discussed risk and benefit if continuing it as a PRN and I counseled on side effects includingsedation, constipation, risk of dependence. He would benefit from palliative care referral on discharge. RAFT MACHINIST * Assessment & Plan Note - Jennifer Burris MD - 2025 12:16 PM AIRCRAFT MACHINIST Associated Problem(s): Chronic HFrEF (heart failure with reduced ejection fraction) (HCC) OSH TTE 07/2024 w/ EF 35-40%. Home meds include coreg and lasix 40 bid. Appears euvolumic without signs of exacerbation. CXR on 04/02 without edema. Plan: -Cont home lasix to prevent fluid overload, withholding parameters for low BP, his BP has been tolerating well so far -Keep holding coreg for now, monitor BP and could resume later on based on trend RAFT MACHINIST * Assessment & Plan Note - Jennifer Burris MD - 2025 12:16 PM AIRCRAFT MACHINIST Associated Problem(s): History of CAD (coronary artery disease) S/p CABG and ICD. Cont home asa and statin RAFT MACHINIST * Assessment & Plan Note - Jennifer Burris MD - 2025 12:16 PM AIRCRAFT MACHINIST Associated Problem(s): History of ventricular tachycardia S/p CABG and ICD. Cont home asa and statin RAFT MACHINIST * Assessment & Plan Note - Jennifer Burris MD - 2025 12:16 PM AIRCRAFT MACHINIST Associated Problem(s): History of anxiety Resuming home xanax and zoloft RAFT MACHINIST * Assessment & Plan Note - Jennifer Burris MD - 2025 12:16 PM AIRCRAFT MACHINIST Associated Problem(s): History of BPH Cont home finasteride and flomax RAFT MACHINIST * Assessment & Plan Note - Jennifer Burris MD - 2025 12:16 PM AIRCRAFT MACHINIST Associated Problem(s): Goals of care, counseling/discussion No family members so POA = Friend Wei Tejada [phone]. Code status was confirmed to be [id number] on 04/02 by admitting physician RAFT MACHINIST * Plan of Care - Suzy Crocker RN - 2025 11:16 AM CST 04/04/25 1116 Discharge Planning Support System Friends/neighbors Anticipated discharge level of care Acute Rehab Does the patient need discharge transport arranged? Yes Has discharge transport been arranged? No Post Acute Care Plan Post Acute Care Needs Identified Yes Home Care Services N/A OP Services N/A DME N/A Post Acute Care Facility Yes Referral Status Started CM Progression of Care Update Per Medical Chart/Rounds/IDR: Per treatment team, patient is not medically ready. ADD: 04/06 Plan/Barriers: medical readiness Referrals: CM met with patient at the bedside regarding OT recommending IPR. The closest rehab is [facility], but this is too far for patient. Patient prefers to stay closer to home and transfer to [facility] [place] [facility] Patient is aware this is less intense than IPR, but prefers to be closer to home. Referral placed and received a phone call from admissions department who is waiting on PT note to be faxed to [phone]. Patient will not need insurance authorization prior to transfer. Transportation: EMS F/U Appointments: to be made prior to dc Patient's Identified Problem/Goal Problem:?Ensure acute medical needs are met and that patient has a safe discharge plan. Goal:?Secure a discharge plan that patient/family are agreeable with?and ensure patient has continuum of care. Patient and/or family are agreeable with plan. core manager will continue to follow and assist with discharge planning as needed. If any further discharge needs arise, please contact the covering dependency case manager. RAFT MACHINIST * Plan of Care - Krys Mitchell RN - 04/03/2025 11:28 PM CST Summary: Problem: Discharge Planning Goal: Understanding discharge needs will improve Outcome: Progressing Problem: Skin Integrity Impairment Risk Goal: Mobility will improve Outcome: Progressing Goal: Understanding of ways to prevent future skin breakdown will improve Outcome: Progressing Goal: Nutritional status will improve Outcome: Progressing Goal: Risk for impaired skin integrity will decrease Outcome: Progressing Problem: Fall Risk Goal: Ability to state ways to decrease the risk of falls will improve Outcome: Progressing Goal: Will remain free from falls Outcome: Progressing Goal: Will remain free from injury from falls Outcome: Progressing Goals: Clinical Goals for the Shift: VSS, comfort and safety, strict I/O, sleep hygiene and anxiety management, respiratory hygiene [facility] Patient Centered Goal for Treatment: safe d/c RAFT MACHINIST * Plan of Care - Yuliet Adamson RN - 04/03/2025 6:50 PM CST Goals: Clinical Goals for the Shift: VSS, comfort and safety, strict I/O, sleep hygiene and anxiety management, respiratory hygiene [employer] Patient Centered Goal for Treatment: safe d/c Problem: Discharge Planning Goal: Understanding discharge needs will improve Outcome: Progressing Problem: Skin Integrity Impairment Risk Goal: Mobility will improve Outcome: Progressing Goal: Understanding of ways to prevent future skin breakdown will improve Outcome: Progressing Goal: Nutritional status will improve Outcome: Progressing Goal: Risk for impaired skin integrity will decrease Outcome: Progressing Problem: Fall Risk Goal: Ability to state ways to decrease the risk of falls will improve Outcome: Progressing Goal: Will remain free from falls Outcome: Progressing Goal: Will remain free from injury from falls Outcome: Progressing RAFT MACHINIST * Assessment & Plan Note - Jennifer Burris MD - 04/03/2025 12:17 PM AIRCRAFT MACHINIST Associated Problem(s): ABLA (acute blood loss anemia) Patient presented with recurrent painless hematochezia. Has had this issue since almost 2019. Last eval was with sigmoidoscopy in jun this year but prep was sub optimal however no active bleeding wasseen. Was also recently admitted at OSH (no scopes or transfusions over there) and discharged few days before presenting to [facility]. Last colonoscopy was 2018. He is not on AC but only takes baby asa for 2ndry prevention. Here, his hgb was found to be 7.7 from baseline of 10. CT A/P W WO was done on admission no active bleeding was seen but showed extensive diverticulosis. GI consulted. Recent Labs Lab Units 04/03/25 0401 04/02/25 1930 04/02/25 1323 04/02/25 0614 04/02/25 0310 HEMOGLOBIN g/dL 7.8* 8.2* 8.2* 8.4* 8.4* 7.7* Plan: -GI input reviewed and appreciated, plan for colonoscopy Friday to look for active bleed vs other explainations such as cancer -If no other explanation, he would benefit from CRS referral for surgical option -C diff pending (had diarrhea initially and has hx of cdfif before and had recent abx exposure for COPD ex treatment) -PPI -Space out CBC to BID given stable hgb -If bleeding recurs, obtain stat CTA RAFT MACHINIST * Assessment & Plan Note - Jennifer Burris MD - 04/03/2025 12:17 PM AIRCRAFT MACHINIST Associated Problem(s): Lower GI bleed Patient presented with recurrent painless hematochezia. Has had this issue since almost 2018. Last eval was with sigmoidoscopy in jun this year but prep was sub optimal however no active bleeding wasseen. Was also recently admitted at OSH (no scopes or transfusions over there) and discharged few days before presenting to [facility]. Last colonoscopy was 2018. He is not on AC but only takes baby asa for 2ndry prevention. Here, his hgb was found to be 7.7 from baseline of 10. [address] A/P W WO was done on admission no active bleeding was seen but showed extensive diverticulosis. GI consulted. Recent Labs Lab Units 04/03/25 0401 04/02/25 1930 04/02/25 1323 04/02/25 0614 04/02/25 0310 HEMOGLOBIN g/dL 7.8* 8.2* 8.2* 8.4* 8.4* 7.7* Plan: -GI input reviewed and appreciated, plan for colonoscopy Friday to look for active bleed vs other explainations such as cancer -If no other explanation, he would benefit from CRS referral for surgical option -C diff pending (had diarrhea initially and has hx of cdfif before and had recent abx exposure for COPD ex treatment) -PPI -Space out CBC to BID given stable hgb -If bleeding recurs, obtain stat CTA RAFT MACHINIST * Assessment & Plan Note - Jennifer Burris MD - 04/03/2025 12:17 PM AIRCRAFT MACHINIST Associated Problem(s): History of diverticulosis Patient presented with recurrent painless hematochezia. Has had this issue since almost 2018. Last eval was with sigmoidoscopy in jun this year but prep was sub optimal however no active bleeding wasseen. Was also recently admitted at OSH (no scopes or transfusions over there) and discharged few days before presenting to [facility]. Last colonoscopy was 2017. He is not on AC but only takes baby asa for 2ndry prevention. Here, his hgb was found to be 7.7 from baseline of 10. CT A/P W WO was done on admission no active bleeding was seen but showed extensive diverticulosis. GI consulted. Recent Labs Lab Units 04/03/25 0401 04/02/25 1930 04/02/25 1323 04/02/25 0614 04/02/25 0310 HEMOGLOBIN g/dL 7.8* 8.2* 8.2* 8.4* 8.4* 7.7* Plan: -GI input reviewed and appreciated, plan for colonoscopy Friday to look for active bleed vs other explainations such as cancer -If no other explanation, he would benefit from CRS referral for surgical option -C diff pending (had diarrhea initially and has hx of cdfif before and had recent abx exposure for COPD ex treatment) -PPI -Space out CBC to BID given stable hgb -If bleeding recurs, obtain stat CTA RAFT MACHINIST * Assessment & Plan Note - Jennifer Burris MD - 04/03/2025 12:17 PM AIRCRAFT MACHINIST Associated Problem(s): Chronic HFrEF (heart failure with reduced ejection fraction) (HCC) OSH TTE 07/2024 w/ EF 35-40%. Home meds include coreg and lasix 40 bid. Appears euvolumic without signs of exacerbation. CXR on 04/02 without edema. Plan: -Resume lasix today to prevent fluid overload, withholding parameters for low BP -Keep holding coreg for now, monitor BP and could resume if robust RAFT MACHINIST * Assessment & Plan Note - Jennifer Burris MD - 04/03/2025 12:17 PM AIRCRAFT MACHINIST Associated Problem(s): History of CAD (coronary artery disease) S/p CABG and ICD. Cont home asa and statin RAFT MACHINIST * Assessment & Plan Note - Jennifer Burris MD - 04/03/2025 12:17 PM AIRCRAFT MACHINIST Associated Problem(s): History of ventricular tachycardia S/p CABG and ICD. Cont home asa and statin RAFT MACHINIST * Assessment & Plan Note - Jennifer Burris MD - 04/03/2025 12:17 PM AIRCRAFT MACHINIST Associated Problem(s): History of anxiety Resuming home xanax and zoloft RAFT MACHINIST * Assessment & Plan Note - Jennifer Burris MD - 04/03/2025 12:17 PM AIRCRAFT MACHINIST Associated Problem(s): FELICITY (acute kidney injury) (Resolved 04/03/2025) Cr at baseline RAFT MACHINIST * Assessment & Plan Note - Jennifer Burris MD - 04/03/2025 12:17 PM AIRCRAFT MACHINIST Associated Problem(s): Chronic respiratory failure with hypoxia (HCC) On 3 L o2 at baseline. No PFTs in chart. No signs of acute exacerbation but he has chronic dyspnea.On Pulmicort and albuterol at home. CXR with hyperinflated lungs from emphysema. Suspect his COPD signifcant advance given thin body habitus and pursed lip breathing technique Plan: -Start duonebz ATC and PRN -Resume home pulmicort -Resuming home diuretic -Discussed qualification for BiPAP but he stated he declined as he had tried it before and did not tolerate -Trial roxanol to help alleviate dyspnea RAFT MACHINIST * Assessment & Plan Note - Jennifer Burris MD - 04/03/2025 12:17 PM AIRCRAFT MACHINIST Associated Problem(s): History of COPD On 3 L o2 at baseline. No PFTs in chart. No signs of acute exacerbation but he has chronic dyspnea.On Pulmicort and albuterol at home. CXR with hyperinflated lungs from emphysema. Suspect his COPD signifcant advance given thin body habitus and pursed lip breathing technique Plan: -Start duonebz ATC and PRN -Resume home pulmicort -Resuming home diuretic -Discussed qualification for BiPAP but he stated he declined as he had tried it before and did not tolerate -Trial roxanol to help alleviate dyspnea RAFT MACHINIST * Assessment & Plan Note - Jennifer Burris MD - 04/03/2025 12:17 PM AIRCRAFT MACHINIST Associated Problem(s): Chronic dyspnea, improved On 3 L o2 at baseline. No PFTs in chart. No signs of acute exacerbation but he has chronic dyspnea.On Pulmicort and albuterol at home. CXR with hyperinflated lungs from emphysema. Suspect his COPD signifcant advance given thin body habitus and pursed lip breathing technique Plan: -Start duonebz ATC and PRN -Resume home pulmicort -Resuming home diuretic -Discussed qualification for BiPAP but he stated he declined as he had tried it before and did not tolerate -Trial roxanol to help alleviate dyspnea RAFT MACHINIST * Assessment & Plan Note - Jennifer Burris MD - 04/03/2025 12:17 PM AIRCRAFT MACHINIST Associated Problem(s): Goals of care, counseling/discussion No family members so POA = Friend Wei Tejada [phone] - confirmed DNRDNI on 04/02 RAFT MACHINIST * Assessment & Plan Note - Jennifer Burris MD - 04/03/2025 12:17 PM AIRCRAFT MACHINIST Associated Problem(s): History of BPH Cont home finasteride and flomax RAFT MACHINIST * Plan of Care - Nino Junior RRT - 04/03/2025 8:12 AM CST Respiratory Medication Plan Situation: Patient is currently scheduled to receive Nebulized Duo-Neb (Albuterol/Ipratropium), Q6 While Awake. budesonide (PULMICORT) 0.5 mg/2 mL nebulizer solution 0.5 mg BID Home Medications: Current Outpatient Medications Medication Instructions ALPRAZolam (XANAX) 0.25 mg, oral, Nightly PRN atorvastatin (LIPITOR) 40 mg, Nightly budesonide (PULMICORT) 0.25 mg/2 mL nebulizer solution carvediloL (COREG) 3.125 mg, 2 times daily famotidine (PEPCID) 20 mg, oral, 2 times daily finasteride (PROSCAR) 5 mg, oral, Daily furosemide (LASIX) 40 mg, 2 times daily ipratropium-albuteroL (DUO-NEB) 0.5-2.5 mg/3 mL nebulizer solution INHALE 3 ML 4 TIMES A DAY BY NEBULIZATION ROUTE NEEDED FOR 10 DAYS. potassium chloride ER 20 mEq CR tablet sertraline (ZOLOFT) 50 mg, 2 times daily tamsulosin (FLOMAX) 0.4 mg extended release capsule 2 tablets, Daily Bronchodilator Assessment Score: 10 Pulmonary Status Pulmonary Impairment (Acute or Chronic) Surgical Status No Surgery Chest X-Ray Clear or Not Indicated Resp. Pattern Dyspnea on Exertion, Irregular Pattern, Respiratory Rate 26-30 Mental Status Alert, Oriented, Cooperative Cough Weak, Non-Productive Breath Sounds Decreased Bilaterally/Coarse Level of Activity Ambulatory O2 Requirement 1-3 Liters or < 35% Oxygen therapy: SpO2 100 % O2 Therapy Supplemental oxygen Patient Vitals: Pulse 84 Resp. Rate 25 Respiratory Assessment: Resp. Effort Labored Depth & Rhythm Tachypnea Chest Assessment Chest expansion symmetrical BRONCHODILATOR EVALUATION /ASSESSMENT SCORE 0-6 Q4 PRN Therapy* or Home Regimen, Intermittent wheezing, or SOB 7-13 QID Therapy Wheezing or periodic SOB 14-19 Q6 Therapy Increased wheezing and/or SOB 20-26 Q4 Therapy Increased wheezing and/or SOB, Difficulty sleeping >26 Contact MD/JANNETH Severe Wheezing, SOB, Difficulty sleeping Note: Score gives a general indication of pulmonary risk. Clinical judgement may yield a different recommended frequency. Toleration: Patient tolerated treatment well. Patient Plan: Continue as ordered RAFT MACHINIST * Plan of Care - Gina Watt RN - 04/03/2025 4:41 AM CST Problem: Discharge Planning Goal: Understanding discharge needs will improve Outcome: Ongoing Problem: Skin Integrity Impairment Risk Goal: Mobility will improve Outcome: Ongoing Goal: Understanding of ways to prevent future skin breakdown will improve Outcome: Ongoing Goal: Nutritional status will improve Outcome: Ongoing Goal: Risk for impaired skin integrity will decrease Outcome: Ongoing Problem: Fall Risk Goal: Ability to state ways to decrease the risk of falls will improve Outcome: Ongoing Goal: Will remain free from falls Outcome: Ongoing Goal: Will remain free from injury from falls Outcome: Ongoing Goals: Clinical Goals for the Shift: pain management, safety, fall prevention, sleep hygiene Senior Living Patient Centered Goal for Treatment: safe discharge RAFT MACHINIST * Initial Assessments - Dionte Witt RN - 04/02/2025 1:28 PM AIRCRAFT MACHINIST CM Initial Assessment Interview Note Information Obtained From: Patient (04/02/251325) Admission Source: home, presented to ED Impression: 84 y/o male here with possible GI bleed Plan Includes: await medical plan and pt/ot recs Additional Information: CM met with patient at bedside to complete initial assessment. Verified address, contact info., emergency contact info., insurance coverage, pharmacy, any DME use, current HH use, stairs outside and inside home, living arrangement, if needing a ride home and PCP. Primary Source of Transportation: Does the patient need discharge transport arranged?: No-friend (04/02/251325) Health Insurance Coverage: Medicare A/B Prescription Coverage: yes Pharmacy: [id number] [address] [facility] [address] [facility] [id number] [id number] [place], [place] - [address] [address] Primary Care Provider: Jayjay Fernandes MD-verified Prior to Admission: Functional Status: Independent with ADLs Primary Caregiver: Self Support System: Friends/neighbors When was the last time you have seen your PCP?: Within last 6 months Home Care Services: No Outpatient Services: No Durable Medical Equipment: Other (Comment) (walking stick) Living Arrangements: Alone Type of Residence: Private residence Steps in home?: Yes, Outside of home Number of steps outside: 5 steps Medication management: Independent (04/02/251325) Anticipated Level of Care: Anticipated discharge level of care: Private residence Pt/Family agrees with Anticipated Level of Care: Yes (11/29/25 1326) Patient expects to be Discharged to: Private residence, (04/02/25 1326) Patient's Identified Problem/Goal Problem: Ensure acute medical needs are met and that patient has a safe discharge plan. Goal: Secure a discharge plan that patient/family are agreeable with and ensure patient has continuum of care. Case management will follow for discharge planning and send referrals as needed. Dionte Witt RN RAFT MACHINIST * Plan of Care - Evelyn Lambert RN - 04/02/2025 9:12 AM CST Problem: Discharge Planning Goal: Understanding discharge needs will improve Outcome: Ongoing Problem: Skin Integrity Impairment Risk Goal: Mobility will improve Outcome: Ongoing Goal: Understanding of ways to prevent future skin breakdown will improve Outcome: Ongoing Goal: Nutritional status will improve Outcome: Ongoing Goal: Risk for impaired skin integrity will decrease Outcome: Ongoing Problem: Fall Risk Goal: Ability to state ways to decrease the risk of falls will improve Outcome: Ongoing Goal: Will remain free from falls Outcome: Ongoing Goal: Will remain free from injury from falls Outcome: Ongoing Goals: Clinical Goals for the Shift: Monitor VS, labs, NPO, and strict I/O, and provide comfort measures. Summary: Progressing towards goals of care. RAFT MACHINIST * Assessment & Plan Note - Lida Borja MD PhD - 04/02/2025 6:17 AM AIRCRAFT MACHINIST Associated Problem(s): Chronic HFrEF (heart failure with reduced ejection fraction) (HCC) OSH TTE 07/2024 w/ EF 35-40% - OSH stress test 07/2024 w/ showing anterior/anteroseptal/apical myocardial infarction without ischemia - euvolemic on admission Plan: - hold coreg d/t GIB - hold lasix but may need to restart if getting blood transfusions RAFT MACHINIST RAFT MACHINIST RAFT MACHINIST RAFT MACHINIST * Assessment & Plan Note - Lida Borja MD PhD - 04/02/2025 6:17 AM AIRCRAFT MACHINIST Associated Problem(s): History of CAD (coronary artery disease) S/p CABG - statin - hold ASA RAFT MACHINIST RAFT MACHINIST * Assessment & Plan Note - Lida Borja MD PhD - 04/02/2025 6:17 AM AIRCRAFT MACHINIST Associated Problem(s): FELICITY (acute kidney injury) (Resolved 04/03/2025) Cr 1.2 (Cr 0.9 in 07/2024) - likely pre-renal. No signs of heart failure to suggest cardiorenal Plan: - may need a bit of fluids RAFT MACHINIST RAFT MACHINIST RAFT MACHINIST * Assessment & Plan Note - Lida Borja MD PhD - 04/02/2025 6:17 AM AIRCRAFT MACHINIST Associated Problem(s): Primary hypertension Hold antihypertensives d/t GIB RAFT MACHINIST RAFT MACHINIST * Assessment & Plan Note - Lida Borja MD PhD - 04/02/2025 6:17 AM AIRCRAFT MACHINIST Associated Problem(s): Chronic respiratory failure with hypoxia (HCC) From COPD, on 3L O2 - only on albuterol at home Plan: - duonebs prn RAFT MACHINIST RAFT MACHINIST RAFT MACHINIST RAFT MACHINIST * Assessment & Plan Note - Lida Borja MD PhD - 04/02/2025 6:17 AM AIRCRAFT MACHINIST Associated Problem(s): ABLA (acute blood loss anemia) Melena + BRBPR. - recurrent GIB since 2019. Hospitalized this year 07/2024 (flex sig done but no active bleeding) and 4 days prior at [facility] (records not available but no transfusions or scopes done and when he got home BRBPR returned) - workup: Hgb 7.7 (Hgb 11 in 08/2024), CT ap w/ focus of hyperattenuation along wall of sigmoid likely mucosal hyperenhancement and less likely GIB Plan: - c diff d/t recent diarrhea - 2 large bore IVs - IV PPI BID - NPO - no IVF d/t HFrEF - active type and screen - Serial CBC q8 Transfuse Hb < 7 Plt < 50 - check H pylori - Hold aspirin, anti hypertensives - consult GI RAFT MACHINIST RAFT MACHINIST RAFT MACHINIST * Assessment & Plan Note - Lida Borja MD PhD - 04/02/2025 6:17 AM AIRCRAFT MACHINIST Associated Problem(s): Goals of care, counseling/discussion No family members so POA = Friend Wei Tejada [phone] - confirmed DNRDNI on 04/02 RAFT MACHINIST RAFT MACHINIST * Assessment & Plan Note - Lida Borja MD PhD - 04/02/2025 6:17 AM AIRCRAFT MACHINIST Associated Problem(s): History of anxiety Xanax prn nightly RAFT MACHINIST RAFT MACHINIST * ED Procedure Note - Aristeo Plunkett Jr., MD - 04/02/2025 1:30 AM AIRCRAFT MACHINIST Associated Order(s): ECG 12 lead Procedure ECG 12 lead Date/Time: 04/02/2025 3:30 AM Performed by: Aristeo Plunkett Jr., MD Authorized by: Bola Harris MD Quality: Tracing quality: Limited by artifact Rate: ECG rate: 94 ECG rate assessment: normal Rhythm: Rhythm: sinus rhythm Ectopy: Ectopy: none QRS: QRS axis: Normal QRS intervals: Normal Conduction: Conduction: normal ST segments: ST segments: Non-specific T waves: T waves: flattening and inverted Flattening: V1 Inverted: AVR and aVL Q waves: Q waves: AVR, V1, V2, V3 and V4 Previous ECG: Previous ECG: Unavailable Interpretation: Interpretation: non-specific Recommended Follow-up: Recommended follow up: further workup in the ED Aristeo Plunkett Jr., MD 04/02/25 0331 RAFT MACHINIST * ED Pre-Arrival Note - Petra Bennett RN - 04/01/2025 10:05 PM AIRCRAFT MACHINIST Pre-Arrival Note Pt BIBEMS for possible GIB. Patient was just dc'd from hospital for GIB. Patient has has had 3 large bowel movements with tarry stool with bright red blood. Patient lives by self. Patient with history of GIB's. Per EMS VSS and patient A&Ox4. Petra Bennett RN RAFT MACHINIST documented in this encounter Plan of Treatment Pending Results Name Type Priority Associated Diagnoses Date /Time Heparin anti factor Xa activity Lab STAT 04/01/2025 10:51 PM AIRCRAFT MACHINIST Ferritin Lab Routine 04/03/2025 8:2 2 PM AIRCRAFT MACHINIST Iron profile w/ IBC Lab Routine 04/03 8:22 PM AIRCRAFT MACHINIST Magnesium Lab Routine 04/05/2025 11: 51 PM AIRCRAFT MACHINIST Urine culture Urine Microbiology Routine 07/2024 9:17 AM AIRCRAFT MACHINIST Scheduled Orders Name Type Priority Associated Diagnoses Orde r Schedule Heparin anti factor Xa activity Lab STAT Once for 1 Occur rences starting 04/01/2025 until 04/01/2025 H. pylori antigen, stool Stool Microbiology STAT STAT for 1 Occur rences starting 04/02/2025 until 04/02/2025 Ferritin Lab Routine Once for 1 Occ urrences starting 04/03/2025 until 04/03/2025 Iron profile w/ IBC Lab Routine Once for 1 Occurrences starting 04/03/2025 until 04/03/2025 Magnesium Lab Routine Once for 1 Occ urrences starting 04/05/2025 until 04/05/2025 Urine culture Microbiology Routine Once for 1 Occurrences starting 04/06/2025 until 04/06/2025 Scheduled Referrals Name Type Priority Associated Diagnoses Order Schedule Ambulatory referral to Colorectal Surgery Outpatient Referral Routine ABLA (acute blood loss anemia) Expected: 04/20/2025 (Approximate), Expires: 04/06/2026 Ambulatory referral to Palliative Care Outpatient Referral Routine Chronic dyspnea, improved Expected: 04/20/2025 (Approximate), Expires: 04/06/2026 documented as of this encounter Procedures Procedure Name Priority Date/Time Associated Diagnosis Comments URINALYSIS AND REFLEX TO MICROSCOPIC AND CULTURE Routine 04/06/2025 9:17 AM AIRCRAFT MACHINIST URINALYSIS, MICROSCOPIC ONLY Routine 04/06/2025 9:17 AM AIRCRAFT MACHINIST CBC WITHOUT DIFFERENTIAL Timed 04/06/2025 8:59 AM AIRCRAFT MACHINIST EGFR Routine 04/05/2025 11:51 PM AIRCRAFT MACHINIST CBC WITHOUT DIFFERENTIAL Timed 04/05/2025 11:51 PM AIRCRAFT MACHINIST MAGNESIUM Routine 04/05/2025 11:51 PM AIRCRAFT MACHINIST BASIC METABOLIC PANEL Routine 04/05/2025 11:51 PM AIRCRAFT MACHINIST POCT GLUCOSE DEVICE Routine 04/05/2025 8 :36 AM AIRCRAFT MACHINIST CBC WITHOUT DIFFERENTIAL Timed 04/05/2025 6:59 AM AIRCRAFT MACHINIST EGFR Routine 2025 9:00 PM AIRCRAFT MACHINIST CBC WITHOUT DIFFERENTIAL Timed 2025 9:00 PM AIRCRAFT MACHINIST TYPE AND SCREEN Timed 2025 9:00 PM AIRCRAFT MACHINIST BASIC METABOLIC PANEL Routine 2025 9:00 PM AIRCRAFT MACHINIST CBC WITHOUT DIFFERENTIAL Timed 2025 9:49 AM AIRCRAFT MACHINIST EGFR Routine 04/03/2025 8:22 PM AIRCRAFT MACHINIST IRON PROFILE W/ IBC Routine 04/03/2025 8 :22 PM AIRCRAFT MACHINIST CBC WITHOUT DIFFERENTIAL Timed 04/03/2025 8:22 PM AIRCRAFT MACHINIST FERRITIN Routine 04/03/2025 8:22 PM AIRCRAFT MACHINIST BASIC METABOLIC PANEL Routine 04/03/2025 8:22 PM AIRCRAFT MACHINIST CBC WITHOUT DIFFERENTIAL Routine 04/03/2025 4:01 AM AIRCRAFT MACHINIST EGFR Routine 04/02/2025 7:30 PM AIRCRAFT MACHINIST CBC WITHOUT DIFFERENTIAL Timed 04/02/2025 7:30 PM AIRCRAFT MACHINIST CBC WITHOUT DIFFERENTIAL Timed 04/02/2025 7:30 PM AIRCRAFT MACHINIST BASIC METABOLIC PANEL Routine 04/02/2025 7:30 PM AIRCRAFT MACHINIST EGFR Timed 04/02/2025 1:23 PM AIRCRAFT MACHINIST CBC WITHOUT DIFFERENTIAL Timed 04/02/2025 1:23 PM AIRCRAFT MACHINIST BASIC METABOLIC PANEL Timed 04/02/2025 1:23 PM AIRCRAFT MACHINIST XR CHEST 1 VIEW ED Urgent/IP Urgent 04/02/2025 10:17 AM AIRCRAFT MACHINIST CBC WITHOUT DIFFERENTIAL STAT 04/02/2025 6:14 AM AIRCRAFT MACHINIST ECG 12-LEAD Routine 04/02/2025 3:30 AM AIRCRAFT MACHINIST TROPONIN I HIGH-SENSITIVITY 2-HOUR Timed 04/02/2025 3:10 AM AIRCRAFT MACHINIST CBC WITHOUT DIFFERENTIAL Timed 04/02/2025 3:10 AM AIRCRAFT MACHINIST BLOOD GAS, VENOUS STAT 04/02/2025 1:3 4 AM AIRCRAFT MACHINIST TROPONIN I HIGH-SENSITIVITY SERIES (BASELINE, 2HR, 4HR, 6HR) STAT 04/02/2025 1:11 AM AIRCRAFT MACHINIST PRO B-TYPE NATRIURETIC PEPTIDE STAT 04/02/2025 1:10 AM AIRCRAFT MACHINIST B CHECK SAMPLE STAT 04/02/2025 12:[address] ABDOMEN PELVIS W WO CONTRAST ED Urgent/IP Urgent 04/02/2025 12:37 AM AIRCRAFT MACHINIST POCT CREATININE - DEVICE Routine 04/01/2025 11:42 PM AIRCRAFT MACHINIST EGFR STAT 04/01/2025 10:51 PM AIRCRAFT MACHINIST DIFFERENTIAL AUTO STAT 04/01/2025 10: 51 PM AIRCRAFT MACHINIST HEPARIN ANTI FACTOR XA ACTIVITY STAT 04/01/2025 10:51 PM AIRCRAFT MACHINIST CBC WITH AUTO DIFFERENTIAL STAT 04/01/2025 10:51 PM AIRCRAFT MACHINIST APTT STAT 04/01/2025 10:51 PM AIRCRAFT MACHINIST PROTIME-INR STAT 04/01/2025 10:51 PM AIRCRAFT MACHINIST TYPE AND SCREEN STAT 04/01/2025 10:51 PM AIRCRAFT MACHINIST COMPREHENSIVE METABOLIC PANEL STAT 04/01/2025 10:51 PM AIRCRAFT MACHINIST documented in this encounter Results * (ABNORMAL) Urinalysis, microscopic only (04/06/2025 9:17 AM AIRCRAFT MACHINIST) WBC, ur >50(A) 0 - 5 /HPF RBC, ur >50(A) 0 - 2 /HPF [facility] Epithelial cells, squamous, ur 1-5 0 - 5 /HPF [facility] Bacteria, ur 1+(A) [facility] Mucous, ur Present(A) [facility] Hyaline casts, ur 6-10 0 - 10 /LPF [facility] Culture Reflex Comment Reflex to urine culture will be performed. [facility] Urine 04/06/2025 9:17 AM AIRCRAFT MACHINIST 04/06/2025 9:48 AM AIRCRAFT MACHINIST Kathryn JALLOH LAB URINE ORDERABLES Final Result [facility] Department [place] [address] * (ABNORMAL) Urinalysis reflex to microscopic and culture Urine (04/06/2025 9:17 AM AIRCRAFT MACHINIST) Color, ur Darren Yellow Clarity, ur Cloudy(A) Clear [facility] Specific gravity, ur 1.019 1.003 - 1.030 [facility] pH, urine 5.5 [facility] Comment: Interpretive Data U rine pH is affected by diet, medications, systemic acid-base disturbances, and renal tubular function. pH may affect urinary stone formation. For example, urine pH below 6.0 may help reduce the tendency for calcium phosphate stones and pH greater than 6.0 may reduce the tendency for uric acid stone formation. Source: [facility] [employer] Current Interpretive Data was last revised on 2017 Protein, ur ql 1+(A) Negative [facility] Glucose, ur ql Negative Negative [facility] Ketones, ur Negative Negative [facility] Bilirubin, ur Negative Negative [facility] Blood, ur 3+(A) Negative [facility] Urobilinogen, ur <2.0 <2.0 mg/dL [facility] Nitrite, ur Negative Negative [facility] Leukocyte esterase, ur 3+(A) Negative [facility] UA reflex comment Reflex to microscopic UA will be performed. [facility] Urine 04/06/2025 9:17 AM AIRCRAFT MACHINIST 04/06/2025 9:48 AM AIRCRAFT MACHINIST Kathryn JALLOH LAB MICROBIOLOGY - [facility] ORDERABLES Final Result [facility] Department [place] [address] * (ABNORMAL) CBC without differential (04/06/2025 8:59 AM AIRCRAFT MACHINIST) WBC 15.79(H) 3.80 - 9.90 K/cumm Hgb 8.0(L) 13.0 - 17.5 g/dL [facility] Hct 24.6(L) 38.9 - 50.3 % [facility] Plt 293 150 - 400 K/cumm [facility] MPV 9.9 9.1 - 12.3 fL [facility] RBC 2.50(L) 4.30 - 5.80 M/cumm [facility] MCV 98.4(H) 81.3 - 96.4 fL [facility] MCH 32.0 27.1 - 33.3 pg [facility] MCHC 32.5 32.3 - 35.7 g/dL [facility] RDW CV 14.4 11.1 - 14.9 % [facility] RDW SD 49.0(H) 35.7 - 48.1 fL [facility] NRBC abs 0.00 0.00 - 0.01 K/cumm [facility] Blood 04/06/2025 8:59 AM AIRCRAFT MACHINIST 04/06/2025 9:43 AM AIRCRAFT MACHINIST us Jennifer Burris MD LAB BLOOD ORDERABLES Final Re sult Performing Organization Address City/[facility]/ZIP Co de Phone Number [facility] [place] [address] * Magnesium (04/05/2025 11:51 PM AIRCRAFT MACHINIST) Pathologist [facility] Magnesium 2.0 1.4 - 2.5 mg/dL Blood 04/05/2025 11:5 1 PM AIRCRAFT MACHINIST 04/06/2025 12:43 AM AIRCRAFT MACHINIST us Suyapa Syed MD LAB BLOOD ORDERABLES Final Resul t Performing Organization Address [facility] de Phone Number [facility] [place] [address] * eGFR (04/05/2025 11:51 PM AIRCRAFT MACHINIST) eGFR 68 >=60 mL/min/1. 73 m2 Comment: Interpretive Data Reference Interval Normal >/= 90 mL/min/1.73m2 Mildly decreased* 60 - 89 mL/min/1.73m2 Mildly to moderately decreased 45 - 59 mL/min/1.73m2 Moderately to severely decreased 30 - 44 mL/min/1.73m2 Severely decreased 15 - 29 mL/min/1.73m2 Kidney Failure < 15 mL/min/1.73m2 *Relative to young adult level Estimated glomerular filtration rate is determined by the 2020 CKD-EPI equation recommended by the National Kidney Foundation (A Unifying Approach to GFR Estimation: Recommendations of the NKF-ASK Task Force on Reassessing the Inclusion of Race in Diagnosing Kidney Disease, JASN 2020). The CKD-EPI equation should not be used for patients with unstable renal function and has not been validated in children and those over 70. Current interpretive data was last reviewed 2021. Blood 04/05/2025 11:5 1 PM AIRCRAFT MACHINIST 04/06/2025 12:43 AM AIRCRAFT MACHINIST Jennifer Burris MD LAB BLOOD ORDERABLES Final Re sult [facility] Department [place] [address] * (ABNORMAL) Basic metabolic panel (04/05/2025 11:51 PM AIRCRAFT MACHINIST) Sodium 143 135 - 145 mmol/L Potassium, pl 3.2(L) 3.3 - 4.9 mmol/L [facility] Chloride 98 97 - 110 mmol/L [facility] CO2 38(H) 22 - 32 mmol/L [facility] Anion gap 7 2 - 15 mmol/L [facility] BUN 17 6 - 25 mg/dL [facility] Creatinine 1.08 0.80 - 1.30 mg/dL [facility] Glucose 105 70 - 199 mg/dL [facility] Comment: Interpretive Data Fasting glucose >/= 126 mg/dl is diagnostic for diabetes. Fasting is defined as no caloric intake for at least 8 hours. Fasting glucose between 100 mg/dl to 125 mg/dl is diagnostic of prediabetes. In a patient with classic symptoms of hyperglycemia or hyperglycemic crisis, a random glucose >/= 200 mg/dl is diagnostic for diabetes. In the absence of unequivocal hyperglycemia, results should be confirmed by repeat testing. The classification and Diagnosis of Diabetes Diabetes Care 2021; 46: S19-S40. Current interpretive data was last revised 2022. Calcium 8.1(L) 8.5 - 10.3 mg/dL [facility] Blood 04/05/2025 11:5 1 PM AIRCRAFT MACHINIST 04/06/2025 12:43 AM AIRCRAFT MACHINIST Jennifer Burris MD LAB BLOOD ORDERABLES Final Re sult Performing Organization Address City/[facility]/ZIP Co de Phone Number [facility] Department [place] [address] * (ABNORMAL) CBC without differential (04/05/2025 11:51 PM AIRCRAFT MACHINIST) [facility] WBC 9.47 3.80 - 9.90 K/cumm Hgb 7.1(L) 13.0 - 17.5 g/dL [facility] Hct 22.7(L) 38.9 - 50.3 % [facility] Plt 241 150 - 400 K/cumm [facility] MPV 10.0 9.1 - 12.3 fL [facility] RBC 2.25(L) 4.30 - 5.80 M/cumm [facility] MCV 100.9(H) 81.3 - 96.4 fL [facility] MCH 31.6 27.1 - 33.3 pg [facility] MCHC 31.3(L) 32.3 - 35.7 g/dL [facility] RDW CV 14.2 11.1 - 14.9 % [facility] RDW SD 51.0(H) 35.7 - 48.1 fL [facility] NRBC abs 0.00 0.00 - 0.01 K/cumm [facility] [facility] Blood 04/05/2025 11:5 1 PM AIRCRAFT MACHINIST 04/06/2025 12:44 AM AIRCRAFT MACHINIST us Jennifer Burris MD LAB BLOOD ORDERABLES Final Re sult Performing Organization Address City/[facility]/ZIP Co de Phone Number [facility] Department [place] [address] * POCT glucose (04/05/2025 8:36 AM AIRCRAFT MACHINIST) [facility] Glucose, POC 114 70 - 199 mg/dL Blood 04/05/2025 8:36 AM AIRCRAFT MACHINIST 04/05/2025 8:36 AM AIRCRAFT MACHINIST us Suyapa Syed MD LAB POCT ORDERABLES - DEVICE Fin al Result Performing Organization Address [facility]/ZIP Co de Phone Number CERNER [facility] Department [place] [address] * (ABNORMAL) CBC without differential (04/05/2025 6:59 AM AIRCRAFT MACHINIST) Pathologist [facility] WBC 14.23(H) 3.80 - 9.90 K/cumm Hgb 7.8(L) 13.0 - 17.5 g/dL [facility] Hct 24.6(L) 38.9 - 50.3 % [facility] Plt 275 150 - 400 K/cumm [facility] MPV 9.7 9.1 - 12.3 fL [facility] RBC 2.50(L) 4.30 - 5.80 M/cumm [facility] MCV 98.4(H) 81.3 - 96.4 fL [facility] MCH 31.2 27.1 - 33.3 pg [facility] MCHC 31.7(L) 32.3 - 35.7 g/dL [facility] RDW CV 13.7 11.1 - 14.9 % [facility] RDW SD 48.4(H) 35.7 - 48.1 fL [facility] NRBC abs 0.00 0.00 - 0.01 K/cumm [facility] Blood 04/05/2025 6:59 AM AIRCRAFT MACHINIST 04/05/2025 7:25 AM AIRCRAFT MACHINIST us Jennifer Burris MD LAB BLOOD ORDERABLES Final Re sult ABELARDO [facility] Department [place] [address] * eGFR (2025 9:00 PM AIRCRAFT MACHINIST) [facility] eGFR 61 >=60 mL/min/1. 73 m2 Comment: Interpretive Data Reference Interval Normal >/= 90 mL/min/1.73m2 Mildly decreased* 60 - 89 mL/min/1.73m2 Mildly to moderately decreased 45 - 59 mL/min/1.73m2 Moderately to severely decreased 30 - 44 mL/min/1.73m2 Severely decreased 15 - 29 mL/min/1.73m2 Kidney Failure < 15 mL/min/1.73m2 *Relative to young adult level Estimated glomerular filtration rate is determined by the 2020 CKD-EPI equation recommended by the National Kidney Foundation (A Unifying Approach to GFR Estimation: Recommendations of the NKF-ASK Task Force on Reassessing the Inclusion of Race in Diagnosing Kidney Disease, JASN 2020). The CKD-EPI equation should not be used for patients with unstable renal function and has not been validated in children and those over 70. Current interpretive data was last reviewed 2021. Blood 2025 9:00 PM AIRCRAFT MACHINIST 2025 9:34 PM AIRCRAFT MACHINIST us Jennifer Burris MD LAB BLOOD ORDERABLES Final Re sult Performing Organization Address City/[facility]/ZIP Co de Phone Number [facility] [place] [address] * Type and screen (2025 9:00 PM AIRCRAFT MACHINIST) ABO Rh O Positive Todd, indirect Negative [facility] Blood 2025 9:00 PM AIRCRAFT MACHINIST 2025 9:50 PM AIRCRAFT MACHINIST Narrative [facility] - 2025 11:01 PM AIRCRAFT MACHINIST Has the patient had Daratumumab or Isatuximab in the past 6 months?->Unknown us Lida Borja MD PhD LAB BLOOD BANK TEST ORDERAB LES Final Result [facility] [place] [address] * (ABNORMAL) Basic metabolic panel (2025 9:00 PM AIRCRAFT MACHINIST) Sodium 141 135 - 145 mmol/L Potassium, pl 3.7 3.3 - 4.9 mmol/L [facility] Chloride 99 97 - 110 mmol/L [facility] CO2 37(H) 22 - 32 mmol/L [facility] Anion gap 5 2 - 15 mmol/L [facility] BUN 20 6 - 25 mg/dL [facility] Creatinine 1.18 0.80 - 1.30 mg/dL [facility] Glucose 91 70 - 199 mg/dL [facility] Comment: Interpretive Data Fasting glucose >/= 126 mg/dl is diagnostic for diabetes. Fasting is defined as no caloric intake for at least 8 hours. Fasting glucose between 100 mg/dl to 125 mg/dl is diagnostic of prediabetes. In a patient with classic symptoms of hyperglycemia or hyperglycemic crisis, a random glucose >/= 200 mg/dl is diagnostic for diabetes. In the absence of unequivocal hyperglycemia, results should be confirmed by repeat testing. The classification and Diagnosis of Diabetes Diabetes Care 2021; 46: S19-S40. Current interpretive data was last revised 2022. Calcium 8.8 8.5 - 10.3 mg/dL [facility] Blood 2025 9:00 PM AIRCRAFT MACHINIST 2025 9:34 PM AIRCRAFT MACHINIST us Jennifer Burris MD LAB BLOOD ORDERABLES Final Re sult [facility] Department [place] [address] * (ABNORMAL) CBC without differential (2025 9:00 PM AIRCRAFT MACHINIST) WBC 11.25(H) 3.80 - 9.90 K/cumm Hgb 7.5(L) 13.0 - 17.5 g/dL [facility] Hct 24.2(L) 38.9 - 50.3 % [facility] Plt 249 150 - 400 K/cumm [facility] MPV 9.9 9.1 - 12.3 fL [facility] RBC 2.41(L) 4.30 - 5.80 M/cumm [facility] MCV 100.4(H) 81.3 - 96.4 fL [facility] MCH 31.1 27.1 - 33.3 pg [facility] MCHC 31.0(L) 32.3 - 35.7 g/dL [facility] RDW CV 13.6 11.1 - 14.9 % [facility] RDW SD 49.1(H) 35.7 - 48.1 fL [facility] NRBC abs 0.00 0.00 - 0.01 K/cumm [facility] Blood 2025 9:00 PM AIRCRAFT MACHINIST 2025 9:33 PM AIRCRAFT MACHINIST us Jennifer Burris MD LAB BLOOD ORDERABLES Final Re sult [facility] Department [place] [address] * (ABNORMAL) CBC without differential (2025 9:49 AM AIRCRAFT MACHINIST) WBC 11.45(H) 3.80 - 9.90 K/cumm Hgb 7.9(L) 13.0 - 17.5 g/dL [facility] Hct 24.7(L) 38.9 - 50.3 % [facility] Plt 233 150 - 400 K/cumm [facility] MPV 9.8 9.1 - 12.3 fL [facility] RBC 2.52(L) 4.30 - 5.80 M/cumm [facility] MCV 98.0(H) 81.3 - 96.4 fL [facility] MCH 31.3 27.1 - 33.3 pg [facility] MCHC 32.0(L) 32.3 - 35.7 g/dL [facility] RDW CV 13.7 11.1 - 14.9 % [facility] RDW SD 48.1 35.7 - 48.1 fL [facility] NRBC abs 0.00 0.00 - 0.01 K/cumm [facility] Blood 2025 9:49 AM AIRCRAFT MACHINIST 2025 10:50 AM AIRCRAFT MACHINIST us Jennifer Burris MD LAB BLOOD ORDERABLES Final Re sult [facility] Department [place] [address] * (ABNORMAL) Iron profile w/ IBC (04/03/2025 8:22 PM AIRCRAFT MACHINIST) [facility] Iron 40(L) 50 - 150 mcg/dL TIBC 219(L) 250 - 400 mcg/dL [facility] Transferrin saturation 18(L) 20 - 50 % [facility] Blood 04/03/2025 8:22 PM AIRCRAFT MACHINIST 04/03/2025 8:46 PM AIRCRAFT MACHINIST Jennifer Burris MD LAB BLOOD ORDERABLES Final Re sult Performing Organization Address City/[facility]/ZIP Co de Phone Number [facility] [place] [address] * Ferritin (04/03/2025 8:22 PM AIRCRAFT MACHINIST) [facility] Ferritin 48 30 - 400 ng/mL Blood 04/03/2025 8:22 PM AIRCRAFT MACHINIST 04/03/2025 8:46 PM AIRCRAFT MACHINIST us Jennifer Burris MD LAB BLOOD ORDERABLES Final Re sult [facility] Department [place] [address] * eGFR (04/03/2025 8:22 PM AIRCRAFT MACHINIST) [facility] eGFR 72 >=60 mL/min/1. 73 m2 Comment: Interpretive Data Reference Interval Normal >/= 90 mL/min/1.73m2 Mildly decreased* 60 - 89 mL/min/1.73m2 Mildly to moderately decreased 45 - 59 mL/min/1.73m2 Moderately to severely decreased 30 - 44 mL/min/1.73m2 Severely decreased 15 - 29 mL/min/1.73m2 Kidney Failure < 15 mL/min/1.73m2 *Relative to young adult level Estimated glomerular filtration rate is determined by the 2020 CKD-EPI equation recommended by the National Kidney Foundation (A Unifying Approach to GFR Estimation: Recommendations of the NKF-ASK Task Force on Reassessing the Inclusion of Race in Diagnosing Kidney Disease, JASN 2020). The CKD-EPI equation should not be used for patients with unstable renal function and has not been validated in children and those over 70. Current interpretive data was last reviewed 2021. Blood 04/03/2025 8:22 PM AIRCRAFT MACHINIST 04/03/2025 8:46 PM AIRCRAFT MACHINIST us Jennifer Burris MD LAB BLOOD ORDERABLES Final Re sult [facility] Department [place] [address] * (ABNORMAL) Basic metabolic panel (04/03/2025 8:22 PM AIRCRAFT MACHINIST) Sodium 140 135 - 145 mmol/L Potassium, pl 3.9 3.3 - 4.9 mmol/L [facility] Chloride 99 97 - 110 mmol/L [facility] CO2 35(H) 22 - 32 mmol/L [facility] Anion gap 6 2 - 15 mmol/L [facility] BUN 18 6 - 25 mg/dL [facility] Creatinine 1.03 0.80 - 1.30 mg/dL [facility] Glucose 134 70 - 199 mg/dL [facility] Comment: Interpretive Data Fasting glucose >/= 126 mg/dl is diagnostic for diabetes. Fasting is defined as no caloric intake for at least 8 hours. Fasting glucose between 100 mg/dl to 125 mg/dl is diagnostic of prediabetes. In a patient with classic symptoms of hyperglycemia or hyperglycemic crisis, a random glucose >/= 200 mg/dl is diagnostic for diabetes. In the absence of unequivocal hyperglycemia, results should be confirmed by repeat testing. The classification and Diagnosis of Diabetes Diabetes Care 202; 46: S19-S40. Current interpretive data was last revised 2022. Calcium 8.5 8.5 - 10.3 mg/dL [facility] Blood 04/03/2025 8:22 PM AIRCRAFT MACHINIST 04/03/2025 8:46 PM AIRCRAFT MACHINIST Jennifer Burris MD LAB BLOOD ORDERABLES Final Re sult [facility] Department [place] [address] * (ABNORMAL) CBC without differential (04/03/2025 8:22 PM AIRCRAFT MACHINIST) WBC 12.92(H) 3.80 - 9.90 K/cumm Hgb 8.1(L) 13.0 - 17.5 g/dL [facility] Hct 24.8(L) 38.9 - 50.3 % [facility] Plt 248 150 - 400 K/cumm [facility] MPV 9.9 9.1 - 12.3 fL [facility] RBC 2.55(L) 4.30 - 5.80 M/cumm [facility] MCV 97.3(H) 81.3 - 96.4 fL [facility] MCH 31.8 27.1 - 33.3 pg [facility] MCHC 32.7 32.3 - 35.7 g/dL [facility] RDW CV 13.5 11.1 - 14.9 % [facility] RDW SD 47.3 35.7 - 48.1 fL [facility] NRBC abs 0.00 0.00 - 0.01 K/cumm [facility] Blood 04/03/2025 8:22 PM AIRCRAFT MACHINIST 04/03/2025 8:47 PM AIRCRAFT MACHINIST us Jennifer Burris MD LAB BLOOD ORDERABLES Final Re sult [facility] [place] [address] * (ABNORMAL) CBC without differential (04/03/2025 4:01 AM AIRCRAFT MACHINIST) WBC 10.04(H) 3.80 - 9.90 K/cumm Hgb 7.8(L) 13.0 - 17.5 g/dL [facility] Hct 23.3(L) 38.9 - 50.3 % [facility] Plt 217 150 - 400 K/cumm [facility] MPV 9.9 9.1 - 12.3 fL [facility] RBC 2.45(L) 4.30 - 5.80 M/cumm [facility] MCV 95.1 81.3 - 96.4 fL [facility] MCH 31.8 27.1 - 33.3 pg [facility] MCHC 33.5 32.3 - 35.7 g/dL [facility] RDW CV 13.4 11.1 - 14.9 % [facility] RDW SD 46.3 35.7 - 48.1 fL [facility] NRBC abs 0.00 0.00 - 0.01 K/cumm [facility] Blood 04/03/2025 4:01 AM AIRCRAFT MACHINIST 04/03/2025 4:29 AM AIRCRAFT MACHINIST Rubin Ricardo MD LAB BLOOD ORDERABLES F inal Result [facility] Department [place] [address] * eGFR (04/02/2025 7:30 PM AIRCRAFT MACHINIST) eGFR 69 >=60 mL/min/1. 73 m2 Comment: Interpretive Data Reference Interval Normal >/= 90 mL/min/1.73m2 Mildly decreased* 60 - 89 mL/min/1.73m2 Mildly to moderately decreased 45 - 59 mL/min/1.73m2 Moderately to severely decreased 30 - 44 mL/min/1.73m2 Severely decreased 15 - 29 mL/min/1.73m2 Kidney Failure < 15 mL/min/1.73m2 *Relative to young adult level Estimated glomerular filtration rate is determined by the 2020 CKD-EPI equation recommended by the National Kidney Foundation (A Unifying Approach to GFR Estimation: Recommendations of the NKF-ASK Task Force on Reassessing the Inclusion of Race in Diagnosing Kidney Disease, JASN 2020). The CKD-EPI equation should not be used for patients with unstable renal function and has not been validated in children and those over 70. Current interpretive data was last reviewed 2021. Blood 04/02/2025 7:30 PM AIRCRAFT MACHINIST 04/02/2025 8:30 PM AIRCRAFT MACHINIST us Jennifer Burris MD LAB BLOOD ORDERABLES Final Re sult Performing Organization Address City/[facility]/ZIP Co de Phone Number [facility] [place] [address] * (ABNORMAL) CBC without differential (04/02/2025 7:30 PM AIRCRAFT MACHINIST) Pathologist [facility] WBC 10.71(H) 3.80 - 9.90 K/cumm Hgb 8.2(L) 13.0 - 17.5 g/dL [facility] Hct 25.3(L) 38.9 - 50.3 % [facility] Plt 250 150 - 400 K/cumm [facility] MPV 9.9 9.1 - 12.3 fL [facility] RBC 2.61(L) 4.30 - 5.80 M/cumm [facility] MCV 96.9(H) 81.3 - 96.4 fL [facility] MCH 31.4 27.1 - 33.3 pg [facility] MCHC 32.4 32.3 - 35.7 g/dL [facility] RDW CV 13.4 11.1 - 14.9 % [facility] RDW SD 47.4 35.7 - 48.1 fL [facility] NRBC abs 0.00 0.00 - 0.01 K/cumm [facility] Blood 04/02/2025 7:30 PM AIRCRAFT MACHINIST 04/02/2025 8:31 PM AIRCRAFT MACHINIST us Jennifer Burris MD LAB BLOOD ORDERABLES Final Re sult Performing Organization Address City/[facility]/ZIP Co de Phone Number [facility] Department [place] [address] * (ABNORMAL) Basic metabolic panel (04/02/2025 7:30 PM AIRCRAFT MACHINIST) Pathologist [facility] Sodium 143 135 - 145 mmol/L Potassium, pl 3.5 3.3 - 4.9 mmol/L [facility] Chloride 100 97 - 110 mmol/L [facility] CO2 36(H) 22 - 32 mmol/L [facility] Anion gap 7 2 - 15 mmol/L [facility] BUN 18 6 - 25 mg/dL [facility] Creatinine 1.07 0.80 - 1.30 mg/dL [facility] Glucose 165 70 - 199 mg/dL [facility] Comment: Interpretive Data Fasting glucose >/= 126 mg/dl is diagnostic for diabetes. Fasting is defined as no caloric intake for at least 8 hours. Fasting glucose between 100 mg/dl to 125 mg/dl is diagnostic of prediabetes. In a patient with classic symptoms of hyperglycemia or hyperglycemic crisis, a random glucose >/= 200 mg/dl is diagnostic for diabetes. In the absence of unequivocal hyperglycemia, results should be confirmed by repeat testing. The classification and Diagnosis of Diabetes Diabetes Care 2021; 46: S19-S40. Current interpretive data was last revised 2022. Calcium 8.9 8.5 - 10.3 mg/dL [facility] Blood 04/02/2025 7:30 PM AIRCRAFT MACHINIST 04/02/2025 8:30 PM AIRCRAFT MACHINIST us Jennifer Burris MD LAB BLOOD ORDERABLES Final Re sult [facility] Department [place] [address] * (ABNORMAL) CBC without differential (04/02/2025 7:30 PM AIRCRAFT MACHINIST) Pathologist [facility] WBC 10.91(H) 3.80 - 9.90 K/cumm Hgb 8.2(L) 13.0 - 17.5 g/dL [facility] Hct 25.7(L) 38.9 - 50.3 % [facility] Plt 251 150 - 400 K/cumm [facility] MPV 10.1 9.1 - 12.3 fL [facility] RBC 2.64(L) 4.30 - 5.80 M/cumm [facility] MCV 97.3(H) 81.3 - 96.4 fL [facility] MCH 31.1 27.1 - 33.3 pg [facility] MCHC 31.9(L) 32.3 - 35.7 g/dL [facility] RDW CV 13.4 11.1 - 14.9 % [facility] RDW SD 47.3 35.7 - 48.1 fL [facility] NRBC abs 0.00 0.00 - 0.01 K/cumm [facility] Blood 04/02/2025 7:30 PM AIRCRAFT MACHINIST 04/02/2025 8:32 PM AIRCRAFT MACHINIST Jennifer Burris MD LAB BLOOD ORDERABLES Final Re sult [facility] Department [place] [address] * eGFR (04/02/2025 1:23 PM AIRCRAFT MACHINIST) eGFR 73 >=60 mL/min/1. 73 m2 Comment: Interpretive Data Reference Interval Normal >/= 90 mL/min/1.73m2 Mildly decreased* 60 - 89 mL/min/1.73m2 Mildly to moderately decreased 45 - 59 mL/min/1.73m2 Moderately to severely decreased 30 - 44 mL/min/1.73m2 Severely decreased 15 - 29 mL/min/1.73m2 Kidney Failure < 15 mL/min/1.73m2 *Relative to young adult level Estimated glomerular filtration rate is determined by the 2020 CKD-EPI equation recommended by the National Kidney Foundation (A Unifying Approach to GFR Estimation: Recommendations of the NKF-ASK Task Force on Reassessing the Inclusion of Race in Diagnosing Kidney Disease, JASN 2020). The CKD-EPI equation should not be used for patients with unstable renal function and has not been validated in children and those over 70. Current interpretive data was last reviewed 2021. Blood 04/02/2025 1:23 PM AIRCRAFT MACHINIST 04/02/2025 1:46 PM AIRCRAFT MACHINIST us Lida Borja MD PhD LAB BLOOD ORDERABLES Final Result [facility] Department [place] [address] * (ABNORMAL) CBC without differential (04/02/2025 1:23 PM AIRCRAFT MACHINIST) [facility] WBC 10.85(H) 3.80 - 9.90 K/cumm Hgb 8.4(L) 13.0 - 17.5 g/dL [facility] Hct 25.4(L) 38.9 - 50.3 % [facility] Plt 174 150 - 400 K/cumm [facility] MPV 10.1 9.1 - 12.3 fL [facility] RBC 2.66(L) 4.30 - 5.80 M/cumm [facility] MCV 95.5 81.3 - 96.4 fL [facility] MCH 31.6 27.1 - 33.3 pg [facility] MCHC 33.1 32.3 - 35.7 g/dL [facility] RDW CV 13.4 11.1 - 14.9 % [facility] RDW SD 47.0 35.7 - 48.1 fL [facility] NRBC abs 0.00 0.00 - 0.01 K/cumm [facility] Blood 04/02/2025 1:23 PM AIRCRAFT MACHINIST 04/02/2025 1:46 PM AIRCRAFT MACHINIST us Jennifer Burris MD LAB BLOOD ORDERABLES Final Re sult [facility] Department [place] [address] * (ABNORMAL) Basic metabolic panel (04/02/2025 1:23 PM AIRCRAFT MACHINIST) [facility] Sodium 143 135 - 145 mmol/L Potassium, pl 4.0 3.3 - 4.9 mmol/L [facility] Chloride 99 97 - 110 mmol/L [facility] CO2 35(H) 22 - 32 mmol/L [facility] Anion gap 9 2 - 15 mmol/L [facility] BUN 21 6 - 25 mg/dL [facility] Creatinine 1.02 0.80 - 1.30 mg/dL [facility] Glucose 138 70 - 199 mg/dL [facility] Comment: Interpretive Data Fasting glucose >/= 126 mg/dl is diagnostic for diabetes. Fasting is defined as no caloric intake for at least 8 hours. Fasting glucose between 100 mg/dl to 125 mg/dl is diagnostic of prediabetes. In a patient with classic symptoms of hyperglycemia or hyperglycemic crisis, a random glucose >/= 200 mg/dl is diagnostic for diabetes. In the absence of unequivocal hyperglycemia, results should be confirmed by repeat testing. The classification and Diagnosis of Diabetes Diabetes Care 202; 46: S19-S40. Current interpretive data was last revised 2022. Calcium 8.9 8.5 - 10.3 mg/dL [facility] Blood 04/02/2025 1:23 PM AIRCRAFT MACHINIST 04/02/2025 1:46 PM AIRCRAFT MACHINIST us Lida Borja MD PhD LAB BLOOD ORDERABLES Final Result [facility] Department [place] [address] * XR Chest 1 View (04/02/2025 10:17 AM AIRCRAFT MACHINIST) Anatomical Region Laterality Modality Body, Chest N/A Digital Radiogra phy 04/02/2025 1:03 PM AIRCRAFT MACHINIST Impressions 04/02/2025 1:03 PM AIRCRAFT MACHINIST No prior images available for comparison. Left side defibrillator with coils projecting over the left brachiocephalic vein and the tip over the right ventricle. No acute airspace disease. No pleural effusion or pneumothorax. Normal cardiomediastinal silhouette. Coronary atherosclerosis with stent in the LAD. The radiology attending physician has personally reviewed this study, and had reviewed and/or edited this written report and agrees with it. Electronically signed by: Armando Martinez M.D. Narrative 04/02/2025 1:03 PM AIRCRAFT MACHINIST EXAMINATION: 1 view chest radiograph Procedure Note Armando Martinez MD - 04/02/2025 EXAMINATION: 1 view chest radiograph IMPRESSION: No prior images available for comparison. Left side defibrillator with coils projecting over the left brachiocephalic vein and the tip over the right ventricle. No acute airspace disease. No pleural effusion or pneumothorax. Normal cardiomediastinal silhouette. Coronary atherosclerosis with stent in the LAD. The radiology attending physician has personally reviewed this study, and had reviewed and/or edited this written report and agrees with it. Electronically signed by: Armando Martinez M.D. us Jennifer Burris MD IMG XR PROCEDURES Final Resul t * (ABNORMAL) CBC without differential (04/02/2025 6:14 AM AIRCRAFT MACHINIST) WBC 11.27(H) 3.80 - 9.90 K/cumm Hgb 8.4(L) 13.0 - 17.5 g/dL [facility] Hct 25.3(L) 38.9 - 50.3 % [facility] Plt 210 150 - 400 K/cumm [facility] MPV 10.1 9.1 - 12.3 fL [facility] RBC 2.64(L) 4.30 - 5.80 M/cumm [facility] MCV 95.8 81.3 - 96.4 fL [facility] MCH 31.8 27.1 - 33.3 pg [facility] MCHC 33.2 32.3 - 35.7 g/dL [facility] RDW CV 13.3 11.1 - 14.9 % [facility] RDW SD 46.2 35.7 - 48.1 fL [facility] NRBC abs 0.00 0.00 - 0.01 K/cumm [facility] Blood 04/02/2025 6:14 AM AIRCRAFT MACHINIST 04/02/2025 6:50 AM AIRCRAFT MACHINIST us Lida Borja MD PhD LAB BLOOD ORDERABLES Final Result Performing Organization Address [facility] Co de Phone Number [facility] Department [place] [address] * ECG 12-LEAD (04/02/2025 3:30 AM AIRCRAFT MACHINIST) Amanda PCAK [facility] - 04/02/2025 3:30 AM AIRCRAFT MACHINIST Aristeo Plunkett Jr., MD 04/02/2025 3:31 AM ECG 12 lead Date/Time: 04/02/2025 3:30 AM Performed by: Aristeo Plunkett Jr., MD Authorized by: Bola Harris MD Quality: Tracing quality: Limited by artifact Rate: ECG rate: 94 ECG rate assessment: normal Rhythm: Rhythm: sinus rhythm Ectopy: Ectopy: none QRS: QRS axis: Normal QRS intervals: Normal Conduction: Conduction: normal ST segments: ST segments: Non-specific T waves: T waves: flattening and inverted Flattening: V1 Inverted: AVR and aVL Q waves: Q waves: AVR, V1, V2, V3 and V4 Previous ECG: Previous ECG: Unavailable Interpretation: Interpretation: non-specific Recommended Follow-up: Recommended follow up: further workup in the ED Bola Harris MD ECG ORDERABLES Final Result Performing Organization Address [facility] Co de Phone Number [facility] * (ABNORMAL) CBC without differential (04/02/2025 3:10 AM AIRCRAFT MACHINIST) Pathologist [facility] WBC 10.77(H) 3.80 - 9.90 K/cumm Hgb 7.7(L) 13.0 - 17.5 g/dL [facility] Hct 23.1(L) 38.9 - 50.3 % [facility] Plt 192 150 - 400 K/cumm [facility] MPV 10.1 9.1 - 12.3 fL [facility] RBC 2.42(L) 4.30 - 5.80 M/cumm [facility] MCV 95.5 81.3 - 96.4 fL [facility] MCH 31.8 27.1 - 33.3 pg [facility] MCHC 33.3 32.3 - 35.7 g/dL [facility] RDW CV 13.2 11.1 - 14.9 % [facility] RDW SD 45.5 35.7 - 48.1 fL [facility] NRBC abs 0.00 0.00 - 0.01 K/cumm [facility] Blood 04/02/2025 3:10 AM AIRCRAFT MACHINIST 04/02/2025 3:42 AM AIRCRAFT MACHINIST Bola Harris MD LAB BLOOD ORDERABLES F inal Result Performing Organization Address [facility] de Phone Number [facility] [place] [address] * Troponin I high-sensitivity 2-hour (04/02/2025 3:10 AM AIRCRAFT MACHINIST) Pathologist [facility] Trop I hs 18 <=35 ng/L Comment: Interpretive Data For further [facility] resources including the diagnostic algorithm and an aid in interpretation, copy and paste this link: [email or web address] Current Interpretive Data last revised 2019. Trop I hs delta 2 ng/L [facility] Trop I hs interp Insignificant [facility] Blood 04/02/2025 3:10 AM AIRCRAFT MACHINIST 04/02/2025 3:42 AM AIRCRAFT MACHINIST Bola Harris MD LAB BLOOD ORDERABLES F inal Result Performing Organization Address [facility] de Phone Number [facility] [place] [address] * (ABNORMAL) Blood gas, venous (04/02/2025 1:34 AM AIRCRAFT MACHINIST) pH, Venous 7.33 7.32 - 7.43 PCO2, Venous 72(H) 40 - 50 mmHg [facility] PO2, Venous 36 mmHg [facility] Comment: Interpretive Data No Reference Range Established Current Interpretive Data was last revised on 2017. HCO3 Venous, Calculated 37(H) 20 - 30 mmol/L [facility] BE, venous 10 mmol/L [facility] Comment: Interpretive Data No Reference Range Established Current Interpretive Data was last revised on 2017. Blood 04/02/2025 1:34 AM AIRCRAFT MACHINIST 04/02/2025 1:35 AM AIRCRAFT MACHINIST Aristeo Plunkett Jr., MD LAB BLOOD ORDERABLES F inal Result Performing Organization Address [facility] Co de Phone Number [facility] [place] [address] * Troponin I high-sensitivity series (baseline, 2hr, 4hr, 6hr) (04/02/2025 1:11 AM AIRCRAFT MACHINIST) Trop I hs 16 <=35 ng/L Comment: Interpretive Data For further hscTnI resources including the diagnostic algorithm and an aid in interpretation, copy and paste this link: [email or web address].testcatalog.org/show/[email or web address] Current Interpretive Data last revised 2019. Blood 04/02/2025 1:11 AM AIRCRAFT MACHINIST 04/02/2025 1:39 AM AIRCRAFT MACHINIST us Bola Harris MD LAB BLOOD ORDERABLES F inal Result Performing Organization Address [facility] Co de Phone Number [place] [address] * (ABNORMAL) Pro B-type natriuretic peptide (04/02/2025 1:10 AM AIRCRAFT MACHINIST) NT-proBNP 902(H) <=450 pg/mL Comment: Interpretive Comments: A. Dyspnea in Acute Care Setting All Ages: < 300 pg/ml, acute heart failure unlikely. < 50 yrs: 300 - 450 pg/ml, further investigation warranted. > 450 pg/ml, acute heart failure likely. 50 - 74 yrs: 300 - 900 pg/ml, further investigation warranted. > 900 pg/ml, acute heart failure likely . > or = 75 yrs: 450 - 1800 pg/ml, further investigation warranted. > 1800 pg/ml, acute heart failure likely. B. Non-acute Setting < 75 yrs < 125 pg/ml, rules out heart failure. > or = 125 pg/ml, further investigation warranted. > or = 75 yrs < 450 pg/ml, rules out heart failure. > or = 450 pg/ml, further investigation warranted. - Knowledge of each individual patient's NT-proBNP range may be more useful than using similar cut-points for every patient. Please note that marked elevations in NT-proBNP levels may be observed in state other than Left Ventricular Congestive Failure, including: acute coronary syndromes, right heart strain/failure (including pulmonary embolism and cor pulmonale), critical illness, renal failure, as well as advanced age. - References: 1. Kwame PANG et.al. Eur Heart J. 2006:27:330-337. 2. Mil RW, Tami LOPEZ. J. AM Stefania Cardiol: Cardiovasc Imag. 2009;2: 216- 225. Interpretive Data Last Revised Date: 2017. Blood 04/02/2025 1:10 AM AIRCRAFT MACHINIST 04/02/2025 1:42 AM AIRCRAFT MACHINIST us Aristeo Plunkett Jr., MD LAB BLOOD ORDERABLES F inal Result Performing Organization Address [facility] de Phone Number [facility] [place] [address] * Check Sample (04/02/2025 12:57 AM AIRCRAFT MACHINIST) ABO Rh O Positive [facility] OTHER 04/02/2025 12:5 7 AM AIRCRAFT MACHINIST 04/02/2025 1:16 AM AIRCRAFT MACHINIST us Kevin Resendez MD LAB BLOOD ORDERABLES Final R esult Performing Organization Address [facility] Co de Phone Number [facility] Department [place] [address] [facility] * CT Abdomen Pelvis W WO Contrast (04/02/2025 12:37 AM AIRCRAFT MACHINIST) Anatomical Region Laterality Modality Body N/A Computed Tomogra phy 04/02/2025 2:08 AM AIRCRAFT MACHINIST Impressions 04/02/2025 8:33 AM AIRCRAFT MACHINIST 1. Focus of hyperattenuation along the wall of the sigmoid colon without pooling on the venous phase favored to represent mucosal hyperenhancement versus artifact, unlikely gastrointestinal bleeding. Otherwise, no evidence of acute gastrointestinal bleeding. 2. 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 This report was telephoned by Dr. Flaherty to Dr. Harris on 04/02/2025 1:59 AM. Dictated by: Sushil Flaherty MD The radiology attending physician has personally reviewed this study, and had reviewed and/or edited this written report and agrees with it. Electronically signed by: Joss Chaney M.D. Narrative 04/02/2025 8:33 AM AIRCRAFT MACHINIST EXAMINATION: Computed tomography of the abdomen and pelvis with and without intravenous contrast HISTORY: Hematochezia TECHNIQUE: Transaxial computed tomographic images of the abdomen and pelvis were obtained with and without intravenous contrast according to the ischemic bowel/GI bleeding protocol after the administration of 94 mL Opti-Ray 350 intravenous contrast. 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 Focus of hyperattenuation in the distal sigmoid colon (5/302) without pooling on the venous phase. No active gastrointestinal bleed. Simple hepatic cyst. Gallbladder, pancreas, and right adrenal gland are normal. Left adrenal adenoma. 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 Nonobstructing right renal stone. Bilateral renal cortical scarring. Kidneys enhance symmetrically without hydronephrosis. Urinary bladder is normal. Extensive colonic diverticulosis without diverticulitis. No bowel obstruction. Appendix is normal. No ascites or pneumoperitoneum. No abdominal or pelvic lymphadenopathy. Extensive atherosclerosis of the aortobiiliac. There is ectasia of the infrarenal abdominal aorta measuring up to 3.3 cm. 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 Replaced right hepatic artery arising from superior mesenteric artery. Atherosclerosis at the origin of both renal arteries resulting in mild stenosis. Left total hip arthroplasty. No suspicious osseous lesion. Procedure Note Joss Chaney MD PhD - 04/02/2025 EXAMINATION: Computed tomography of the abdomen and pelvis with and without intravenous contrast HISTORY: Hematochezia TECHNIQUE: Transaxial computed tomographic images of the abdomen and pelvis were obtained with and without intravenous contrast according to the ischemic bowel/GI bleeding protocol after the administration of 94 mL Opti-Ray 350 intravenous contrast. 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 Focus of hyperattenuation in the distal sigmoid colon (5/302) without pooling on the venous phase. No active gastrointestinal bleed. Simple hepatic cyst. Gallbladder, pancreas, and right adrenal gland are normal. Left adrenal adenoma. 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 Nonobstructing right renal stone. Bilateral renal cortical scarring. Kidneys enhance symmetrically without hydronephrosis. Urinary bladder is normal. Extensive colonic diverticulosis without diverticulitis. No bowel obstruction. Appendix is normal. No ascites or pneumoperitoneum. No abdominal or pelvic lymphadenopathy. Extensive atherosclerosis of the aortobiiliac. There is ectasia of the infrarenal abdominal aorta measuring up to 3.3 cm. 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 Replaced right hepatic artery arising from superior mesenteric artery. Atherosclerosis at the origin of both renal arteries resulting in mild stenosis. Left total hip arthroplasty. No suspicious osseous lesion. IMPRESSION: 1. Focus of hyperattenuation along the wall of the sigmoid colon without pooling on the venous phase favored to represent mucosal hyperenhancement versus artifact, unlikely gastrointestinal bleeding. Otherwise, no evidence of acute gastrointestinal bleeding. 2. 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 This report was telephoned by Dr. Flaherty to Dr. Harris on 04/02/2025 1:59 AM. Dictated by: Sushil Flaherty MD The radiology attending physician has personally reviewed this study, and had reviewed and/or edited this written report and agrees with it. Electronically signed by: Joss Chaney M.D. Bola Harris MD IMG CT PROCEDURES Emilee l Result * POCT creatinine (04/01/2025 11:42 PM AIRCRAFT MACHINIST) Creatinine POC 1.2 0.8 - 1.3 mg/dL Blood 04/01/2025 11:4 2 PM AIRCRAFT MACHINIST 04/01/2025 11:42 PM AIRCRAFT MACHINIST Notinfile Unknown LAB POCT ORDERABLES - DEVICE F inal Result Performing Organization Address City/[facility]/ZIP Co de Phone Number [facility] Department [place] [address] * Heparin anti factor Xa activity (04/01/2025 10:51 PM AIRCRAFT MACHINIST) Pathologist [facility] Anti Factor Xa <0.10 IUnits/mL Comment: Interpretive Data Enoxaparin therapeutic range (peak): VTE treatment, Q12hr dosin.60-1.00 IUnits/mL VTE treatment, Q24hr dosin.00-2.00 IUnits/mL Q24hr dosing for renal impairment (CrCl <30 mL/min): 0.60-1.00 IUnits/mL VTE prevention: 0.10-0.40 IUnits/mL - Anti-Xa therapeutic ranges apply to blood samples drawn 4 hours after last dose (peak). - Unfractionated heparin (UFH) therapeutic range: 0.30-0.70 IUnits/mL - Direct factor Xa inhibitors (rivaroxaban, apixaban): Results must be interpreted qualitatively. No activity detected suggests little anticoagulant activity. - In severe antithrombin deficiency, anti-Xa measurement may be inaccurate. - Interpretive guidelines developed in adult populations. Interpretive guidelines for pediatric patients have not been rigorously defined. - Current interpretive data was last revised on 2018. Blood 04/01/2025 10:5 1 PM AIRCRAFT MACHINIST 04/01/2025 11:02 PM AIRCRAFT MACHINIST us Aristeo Plunkett Jr., MD LAB BLOOD ORDERABLES F inal Result [facility] Department [place] [address] * (ABNORMAL) eGFR (04/01/2025 10:51 PM AIRCRAFT MACHINIST) Pathologist [facility] eGFR 59(L) >=60 mL/min/1. 73 m2 Comment: Interpretive Data Reference Interval Normal >/= 90 mL/min/1.73m2 Mildly decreased* 60 - 89 mL/min/1.73m2 Mildly to moderately decreased 45 - 59 mL/min/1.73m2 Moderately to severely decreased 30 - 44 mL/min/1.73m2 Severely decreased 15 - 29 mL/min/1.73m2 Kidney Failure < 15 mL/min/1.73m2 *Relative to young adult level Estimated glomerular filtration rate is determined by the 2020 CKD-EPI equation recommended by the National Kidney Foundation (A Unifying Approach to GFR Estimation: Recommendations of the NKF-ASK Task Force on Reassessing the Inclusion of Race in Diagnosing Kidney Disease, JASN 2020). The CKD-EPI equation should not be used for patients with unstable renal function and has not been validated in children and those over 70. Current interpretive data was last reviewed 2021. Blood 04/01/2025 10:5 1 PM AIRCRAFT MACHINIST 04/01/2025 11:10 PM AIRCRAFT MACHINIST us Bola Harris MD LAB BLOOD ORDERABLES F inal Result [facility] Department [place] [address] * (ABNORMAL) Differential, auto (04/01/2025 10:51 PM AIRCRAFT MACHINIST) [facility] Neutrophil abs 10.99(H) 1.50 - 6.50 K/cumm Imm gran abs 0.17(H) 0.00 - 0.10 K/cumm [facility] Lymphocyte abs 1.91 0.80 - 3.30 K/cumm [facility] Monocyte abs 0.65 0.20 - 0.80 K/cumm [facility] Eosinophil abs 0.70(H) 0.00 - 0.50 K/cumm [facility] Basophil abs 0.05 0.00 - 0.10 K/cumm [facility] Neutrophil pct 76.0 % [facility] Comment: Interpretive Data Percent cell count reference ranges are not reported, since discordance with absolute values may lead to misinterpretation of CBC data. Current Interpretive Data was last revised on 2017. Imm gran pct 1.2 % [facility] Comment: Interpretive Data Percent cell count reference ranges are not reported, since discordance with absolute values may lead to misinterpretation of CBC data. Current Interpretive Data was last revised on 2017. Lymphocyte pct 13.2 % [facility] Comment: Interpretive Data Percent cell count reference ranges are not reported, since discordance with absolute values may lead to misinterpretation of CBC data. Current Interpretive Data was last revised on 2017. Monocyte pct 4.5 % [facility] Comment: Interpretive Data Percent cell count reference ranges are not reported, since discordance with absolute values may lead to misinterpretation of CBC data. Current Interpretive Data was last revised on 2017. Eosinophil pct 4.8 % [facility] Comment: Interpretive Data Percent cell count reference ranges are not reported, since discordance with absolute values may lead to misinterpretation of CBC data. Current Interpretive Data was last revised on 2017. Basophil pct 0.3 % [facility] Comment: Interpretive Data Percent cell count reference ranges are not reported, since discordance with absolute values may lead to misinterpretation of CBC data. Current Interpretive Data was last revised on 2017. Blood 04/01/2025 10:5 1 PM AIRCRAFT MACHINIST 04/01/2025 11:10 PM AIRCRAFT MACHINIST Bola Harris MD LAB BLOOD ORDERABLES F inal Result [facility] [place] [address] * Type and screen (04/01/2025 10:51 PM AIRCRAFT MACHINIST) ABO Rh O Positive Todd, indirect Negative [facility] Blood 04/01/2025 10:5 1 PM AIRCRAFT MACHINIST 04/01/2025 11:22 PM AIRCRAFT MACHINIST Narrative [facility] - 04/02/2025 12:12 AM AIRCRAFT MACHINIST Has the patient had Daratumumab or Isatuximab in the past 6 months?->Unknown Result [facility] Bola Harris MD LAB BLOOD BANK TEST OR DERABLES Final Result Performing Organization Address City/[facility] Co de Phone Number [facility] [place] [address] * aPTT (04/01/2025 10:51 PM AIRCRAFT MACHINIST) aPTT 28 26 - 38 sec Comment: Interpretive Data Heparin therapeutic range: 66.0 - 100.0 seconds. Range based on correlation with therapeutic heparin activity range of 0.3 - 0.7 Units/mL. Blood 04/01/2025 10:5 1 PM AIRCRAFT MACHINIST 04/01/2025 11:02 PM AIRCRAFT MACHINIST Result [facility] Bola Harris MD LAB BLOOD ORDERABLES F inal Result Performing Organization Address [facility] de Phone Number [place] [address] * Protime-INR (04/01/2025 10:51 PM AIRCRAFT MACHINIST) PT 11.1 10.2 - 13.5 sec INR 0.98 0.90 - 1.20 [facility] Comment: Interpretive data Oral anticoagulant therapeutic ranges: Venous thromboembolism prophylaxis or treatment: 2.0-3.0 CARDIOLOGY Standard range: 2.0-3.0 High-intensity range: 2.5-3.5 Refer to indication-specific guidelines for appropriate target ranges for prosthetic heart valve replacement. Current interpretive data was last revised on 2019. Blood 04/01/2025 10:5 1 PM AIRCRAFT MACHINIST 04/01/2025 11:02 PM AIRCRAFT MACHINIST Result [facility] Bola Harris MD LAB BLOOD ORDERABLES F inal Result Performing Organization Address [facility] [place] [address] * (ABNORMAL) Comprehensive metabolic panel (04/01/2025 10:51 PM AIRCRAFT MACHINIST) Sodium 144 135 - 145 mmol/L Potassium, pl 4.3 3.3 - 4.9 mmol/L [facility] Chloride 101 97 - 110 mmol/L [facility] CO2 34(H) 22 - 32 mmol/L [facility] Anion gap 9 2 - 15 mmol/L [facility] BUN 19 6 - 25 mg/dL [facility] Creatinine 1.21 0.80 - 1.30 mg/dL [facility] Glucose 145 70 - 199 mg/dL [facility] Comment: Interpretive Data Fasting glucose >/= 126 mg/dl is diagnostic for diabetes. Fasting is defined as no caloric intake for at least 8 hours. Fasting glucose between 100 mg/dl to 125 mg/dl is diagnostic of prediabetes. In a patient with classic symptoms of hyperglycemia or hyperglycemic crisis, a random glucose >/= 200 mg/dl is diagnostic for diabetes. In the absence of unequivocal hyperglycemia, results should be confirmed by repeat testing. The classification and Diagnosis of Diabetes Diabetes Care 2021; 46: S19-S40. Current interpretive data was last revised 2022. Calcium 9.0 8.5 - 10.3 mg/dL [facility] Bilirubin, total 1.0 0.1 - 1.2 mg/dL [facility] Protein, pl 6.6 6.5 - 8.5 g/dL [facility] Albumin 4.1 3.5 - 5.0 g/dL [facility] Alk phos 86 40 - 130 Units/L [facility] ALT 17 7 - 55 Units/L [facility] AST 22 10 - 50 Units/L [facility] Blood 04/01/2025 10:5 1 PM AIRCRAFT MACHINIST 04/01/2025 11:10 PM AIRCRAFT MACHINIST us Bola Harris MD LAB BLOOD ORDERABLES F inal Result [facility] [place] [address] * (ABNORMAL) CBC with auto differential (04/01/2025 10:51 PM AIRCRAFT MACHINIST) WBC 14.47(H) 3.80 - 9.90 K/cumm Hgb 10.1(L) 13.0 - 17.5 g/dL [facility] Hct 30.9(L) 38.9 - 50.3 % [facility] Plt 282 150 - 400 K/cumm [facility] MPV 10.0 9.1 - 12.3 fL [facility] RBC 3.22(L) 4.30 - 5.80 M/cumm [facility] MCV 96.0 81.3 - 96.4 fL [facility] MCH 31.4 27.1 - 33.3 pg [facility] MCHC 32.7 32.3 - 35.7 g/dL [facility] RDW CV 13.1 11.1 - 14.9 % [facility] RDW SD 45.5 35.7 - 48.1 fL [facility] NRBC abs 0.00 0.00 - 0.01 K/cumm [facility] Blood 04/01/2025 10:5 1 PM AIRCRAFT MACHINIST 04/01/2025 11:10 PM AIRCRAFT MACHINIST Bola Harris MD LAB BLOOD ORDERABLES F inal Result [facility] [place] [address] documented in this encounter Visit Diagnoses Diagnosis ABLA (acute blood loss anemia)- Primary Hematochezia Blood in stool Gastrointestinal hemorrhage, unspecified gastrointestinal hemorrhage type Diverticulosis Diverticulosis of colon (without mention of hemorrhage) Chronic respiratory acidosis (HCC) Acidosis ABLA (acute blood loss anemia) Chronic dyspnea, improved Chronic HFrEF (heart failure with reduced ejection fraction) (HCC) History of anxiety History of CAD (coronary artery disease) FELICITY (acute kidney injury) Primary hypertension Unspecified essential hypertension Chronic respiratory failure with hypoxia (HCC) Goals of care, counseling/discussion Lower GI bleed Unspecified, hemorrhage of gastrointestinal tract History of diverticulosis History of ventricular tachycardia Personal history of other diseases of circulatory system History of COPD History of BPH Chronic dyspnea, improved Urinary retention Unspecified retention of urine documented in this encounter Admitting Diagnoses Diagnosis Hematochezia Blood in stool documented in this encounter Administered Medications Inactive Administered Medications - up to 3 most recent administrations Medication Order MAR Action Action Date Dose Rate Site acetaminophen (TYLENOL) tablet 1,000 mg 1,000 mg, oral, Every 6 hours PRN, 1st line for pain, fever, fever greater than 38.3 C, Starting on 04/03/25 at 1305, Indications: Fever, PainIndications:Fever,Pain albuterol 2.5 mg/0.5 mL nebulizer solution 10 mg 10 mg, nebulization, Once (product responsibility liaison), On Fri04/01/25 at 2230, For 1 dose, Indications: COPD ExacerbationIndications:COPD Exacerbation Given 04/01/2025 10:32 PM AIRCRAFT MACHINIST 10 mg ALPRAZolam (XANAX) tablet 0.25 mg 0.25 mg, oral, 2 times daily PRN, anxiety, Starting on 04/03/25 at 0845 Given 04/06/2025 5:29 PM AIRCRAFT MACHINIST 0.25 mg Given 04/05/2025 4:08 PM AIRCRAFT MACHINIST 0.25 mg Given 04/05/2025 9:01 AM AIRCRAFT MACHINIST 0.25 mg aspirin enteric coated tablet 81 mg 81 mg, oral, Daily, First dose on 04/03/25 at 0900, Do not crush, chew, cut, dissolve, open or otherwise manipulate tablet/capsule. Given 04/06/2025 8:59 AM AIRCRAFT MACHINIST 81 mg Given 04/05/2025 9:03 AM AIRCRAFT MACHINIST 81 mg Given 2025 8:42 AM AIRCRAFT MACHINIST 81 mg atorvastatin (LIPITOR) tablet 40 mg 40 mg, oral, Nightly, First dose on 04/02/25 at 2100 Given 04/06/2025 7:55 PM AIRCRAFT MACHINIST 40 mg Given 04/05/2025 8:00 PM AIRCRAFT MACHINIST 40 mg Given 2025 8:32 PM AIRCRAFT MACHINIST 40 mg budesonide (PULMICORT) 0.5 mg/2 mL nebulizer solution 0.5 mg 0.5 mg, nebulization, 2 times daily (product responsibility liaison), First dose on 04/02/25 at 0945, I /authorizing provider attest that the patient meets the approved [facility] Use Criteria: Yes Given 04/06/2025 9:05 PM AIRCRAFT MACHINIST 0.5 mg Given 04/06/2025 7:26 AM AIRCRAFT MACHINIST 0.5 mg Given 04/05/2025 9:18 PM AIRCRAFT MACHINIST 0.5 mg ferric gluconate (FERRLECIT) 125 mg of elemental iron in sodium chloride 0.9% 100 mL IVPB 125 mg of elemental iron, intravenous, at 120 mL/hr, Administer over 60 Minutes, Daily, First dose on 04/04/25 at 2000, For 3 doses Rate/Dose Verify 04/06/2025 7:31 PM AIRCRAFT MACHINIST 120 mL/hr New Bag 04/06/2025 6:37 PM AIRCRAFT MACHINIST 125 mg of elemental iron 120 mL/hr Restarted (From Pump) 04/05/2025 6:48 PM AIRCRAFT MACHINIST 12 0 mL/hr finasteride (PROSCAR) tablet 5 mg 5 mg, oral, Daily, First dose on 04/02/25 at 0900, Do not crush, break, or open. Given 04/06/2025 8:59 AM AIRCRAFT MACHINIST 5 mg Given 04/05/2025 9:02 AM AIRCRAFT MACHINIST 5 mg Given 2025 8:42 AM AIRCRAFT MACHINIST 5 mg furosemide (LASIX) tablet 40 mg 40 mg, oral, 2 times daily (for diuretics), First dose (after last modification) on 04/03/25 at 1600, Hold for SBP < 110 Given 04/06/2025 3:24 PM AIRCRAFT MACHINIST 40 mg Given 04/06/2025 9:00 AM AIRCRAFT MACHINIST 40 mg Given 04/05/2025 4:08 PM AIRCRAFT MACHINIST 40 mg ioversoL (OPTIRAY 350) syringe 100 mL 100 mL, intravenous, Once in imaging, contrast, Starting on 04/02/25 at 0016, For 1 dose Contrast Given 04/02/2025 12:18 AM AIRCRAFT MACHINIST 94 mL ipratropium (ATROVENT) 0.02 % nebulizer solution 0.5 mg 0.5 mg, nebulization, Once (product responsibility liaison), On Fri04/01/25 at 2230, For 1 dose, Indications: COPD ExacerbationIndications:COPD Exacerbation Given 04/01/2025 10:32 PM AIRCRAFT MACHINIST 0.5 mg ipratropium-albuteroL (DUO-NEB) 0.5-2.5 mg/3 mL nebulizer solution 3 mL 3 mL, nebulization, Every 4 hours PRN (product responsibility liaison), wheezing, shortness of breath, Starting on 04/02/25 at 0609 Given 04/06/2025 11:17 AM AIRCRAFT MACHINIST 3 mL ipratropium-albuteroL (DUO-NEB) 0.5-2.5 mg/3 mL nebulizer solution 3 mL 3 mL, nebulization, Every 6 hours while awake (product responsibility liaison), First dose on 04/02/25 at 0900, Indications: disorder of respiratory systemIndications:disorder of respiratory system Given 04/06/2025 9:05 PM AIRCRAFT MACHINIST 3 mL Given 04/06/2025 2:43 PM AIRCRAFT MACHINIST 3 mL Given 04/06/2025 7:26 AM AIRCRAFT MACHINIST 3 mL lidocaine (GLYDO) 2 % jelly 100 mg 100 mg (5 mL), urethral, 2 times daily, First dose on Fri04/06/25 at 1115 Given 04/06/2025 3:25 PM AIRCRAFT MACHINIST 100 mg morphine 2 mg/mL oral solution 5 mg 5 mg, oral, Once, On 04/03/25 at 0945, For 1 dose Given 04/03/2025 10:20 AM AIRCRAFT MACHINIST 5 mg morphine 2 mg/mL oral solution 5 mg 5 mg, oral, Every 4 hours PRN, other, Dyspnea, Starting on 04/03/25 at 1305 Given 04/06/2025 7:59 PM AIRCRAFT MACHINIST 5 mg Given 04/06/2025 1:07 PM AIRCRAFT MACHINIST 5 mg Given 04/06/2025 2:14 AM AIRCRAFT MACHINIST 5 mg ondansetron (ZOFRAN) injection 4 mg 4 mg, intravenous, Administer over 2 Minutes, Every 6 hours PRN, nausea, vomiting, Starting on Fri04/04/25 at 1212 pantoprazole (PROTONIX) 40 mg in sodium chloride 0.9% 10 mL IV Syringe 40 mg, intravenous, at 300 mL/hr, Administer over 2 Minutes, 2 times daily, First dose on Fri04/01/25 at 2245, For IV administration, reconstitute 40 mg vial with 10 mL sodium chloride 0.9% for injection for a final concentration of 4 mg/mL, Indications: GI BleedIndications:GI Bleed Given 04/06/2025 8:59 AM AIRCRAFT MACHINIST 40 mg 300 mL/hr Given 04/05/2025 8:00 PM AIRCRAFT MACHINIST 40 mg 300 mL/hr Given 04/05/2025 9:03 AM AIRCRAFT MACHINIST 40 mg 300 mL/hr pantoprazole DR (PROTONIX) extended release tablet 40 mg 40 mg, oral, 2 times daily, First dose on Fri04/06/25 at 1400, Do not crush, chew, cut, dissolve, open or otherwise manipulate tablet/capsule., Indications: GI BleedIndications:GI Bleed Given 04/06/2025 7:55 PM AIRCRAFT MACHINIST 40 mg Given 04/06/2025 3:24 PM AIRCRAFT MACHINIST 40 mg polyethylene glycol (MIRALAX) packet 17 g 17 g, oral, Daily PRN, constipation, Starting on 04/02/25 at 0509, Indications: constipationIndications:constipation Given 04/06/2025 5:30 PM AIRCRAFT MACHINIST 17 g potassium chloride ER (KLOR-CON) extended release tablet 40 mEq 40 mEq, oral, Once, On Fri04/06/25 at 0330, For 1 dose, Tablets should not be crushed, chewed, dissolved, or otherwise manipulated. Capsules may be opened and sprinkled on a spoonful of applesauce or pudding, but the contents of the capsule should not be crushed or chewed. Given 04/06/2025 4:03 AM AIRCRAFT MACHINIST 40 mEq ramelteon (ROZEREM) tablet 8 mg 8 mg, oral, Nightly PRN, sleep, Starting on 04/02/25 at 0509, Indications: Sleep-Onset InsomniaIndications:Sleep-Onset Insomnia Given 04/05/2025 8:00 PM AIRCRAFT MACHINIST 8 mg Given 04/03/2025 8:09 PM AIRCRAFT MACHINIST 8 mg sertraline (ZOLOFT) tablet 50 mg 50 mg, oral, 2 times daily, First dose on 04/02/25 at 0900 Given 04/06/2025 8:59 AM AIRCRAFT MACHINIST 50 mg Given 04/05/2025 8:00 PM AIRCRAFT MACHINIST 50 mg Given 04/05/2025 9:02 AM AIRCRAFT MACHINIST 50 mg tamsulosin (FLOMAX) extended release capsule 0.4 mg 0.4 mg, oral, Daily with dinner, First dose on 04/02/25 at 1800, Do not crush, chew, cut, dissolve, open or otherwise manipulate tablet/capsule. Given 04/06/2025 6:23 PM AIRCRAFT MACHINIST 0.4 mg Given 04/05/2025 5:39 PM AIRCRAFT MACHINIST 0.4 mg Given 2025 5:49 PM AIRCRAFT MACHINIST 0.4 mg documented in this encounter Discontinued Medications Medication Sig Discontinue Reason Start Date End Da te famotidine (PEPCID) 20 mg tablet Take 1 tablet (20 mg total) by mouth 2 (two) times a day Stop Taking at Discharge 04/06/2025 potassium chloride ER 20 mEq CR tablet Stop Taking at Discharge 04/01/2025 04/06/2025 documented as of this encounter Historical Medications * This list may reflect changes made after this encounter. finasteride (PROSCAR) 5 mg tablet Take 1 tablet (5 mg total) by mouth daily tamsulosin (FLOMAX) 0.4 mg extended release capsule Take 2 tablets by mouth daily 06/21/2015 sertraline (ZOLOFT) 50 mg tablet Take 1 tablet (50 mg total) by mouth 2 (two) times a day 02/28/2020 ipratropium-albu teroL (DUO-NEB) 0.5-2.5 mg/3 mL nebulizer solution INHALE 3 ML 4 TIMES A DAY BY NEBULIZATION ROUTE NEEDED FOR 10 DAYS. 01/26/2025 furosemide (LASIX) 40 mg tablet Take 1 tablet (40 mg total) by mouth 2 (two) times a day 01/07/2024 carvediloL (COREG) 3.125 mg tablet Take 1 tablet (3.125 mg total) by mouth 2 (two) times a day 06/14/2019 budesonide (PULMICORT) 0.25 mg/2 mL nebulizer solution 02/14/2021 atorvastatin (LIPITOR) 40 mg tablet Take 1 tablet (40 mg total) by mouth nightly 02/13/2016 ALPRAZolam (XANAX) 0.25 mg tablet Take 1 tablet (0.25 mg total) by mouth nightly as needed for anxiety 02/28/2025 potassium chloride ER 20 mEq CR tablet 04/01/2025 famotidine (PEPCID) 20 mg tablet Take 1 tablet (20 mg total) by mouth 2 (two) times a day added in this encounter Active and Recently Administered Medications Times are shown in AIRCRAFT MACHINIST. Scheduled Medication Order 2025 04/05/2025 04/06/2025 aspirin enteric coated tablet 81 mg 81 mg, oral, Daily, First dose on 04/03/25 at 0900, Do not crush, chew, cut, dissolve, open or otherwise manipulate tablet/capsule. 0842 (Given - Provider: Yuliet Adamson RN) 0903 (Given - Provider: Yuliet Adamson RN) 0859 (Given - Provider: Karrie Hackett, RN) atorvastatin (LIPITOR) tablet 40 mg 40 mg, oral, Nightly, First dose on 04/02/25 at 2100 2031 (Given - Provider: Audrey Sousa, GREGORY) 1999 (Given - Provider: Charmaine Lyman RN) 1954 (Given - Provider: Marie Oleary) budesonide (PULMICORT) 0.5 mg/2 mL nebulizer solution 0.5 mg 0.5 mg, nebulization, 2 times daily (product responsibility liaison), First dose on 04/02/25 at 0945, I /authorizing provider attest that the patient meets the approved [facility] Use Criteria: Yes 0856 (Given - Provider: Senia Pro, LAND SURVEYOR ASSISTANT)2111 (Given - Provider: Joss Campbell, LAND SURVEYOR ASSISTANT) 08 (Not Given - Provider: Shania Yusuf, LAND SURVEYOR ASSISTANT - Reason: Medication not available - Comment: message sent to pharmacy)171 (Given - Provider: Shania Yusuf, LAND SURVEYOR ASSISTANT)2117 (Given - Provider: Alexx Rose, LAND SURVEYOR ASSISTANT) 07 (Given - Provider: Laura Joiner, LAND SURVEYOR ASSISTANT)2104 (Given - Provider: Krys Bullock, JO) ferric gluconate (FERRLECIT) 125 mg of elemental iron in sodium chloride 0.9% 100 mL IVPB (COMPLETED) 125 mg of elemental iron, intravenous, at 120 mL/hr, Administer over 60 Minutes, Daily, First dose on 04/04/25 at 2000, For 3 doses 2125 (New Bag - Provider: Audrey Sousa RN)2219 (Stopped - Provider: Audrey Sousa RN) 174 (New Bag - Provider: Yuliet Adamson RN)175 (Paused - Provider: Karrie Hackett, GREGORY)184 (Paused - Provider: Karrie Hackett RN)1848 (Restarted (From Pump) - Provider: Karrie Hackett RN)193 (Stopped - Provider: Karrie Hackett RN) 183 (New Bag - Provider: Karrie Hackett RN)193 (Rate/Dose Verify - Provider: Karrie Hackett RN) finasteride (PROSCAR) tablet 5 mg 5 mg, oral, Daily, First dose on 04/02/25 at 0900, Do not crush, break, or open. 0842 (Given - Provider: Yuliet Adamson RN) 0902 (Given - Provider: Yuliet Adamson RN) 0859 (Given - Provider: Karrie Hackett, RN) furosemide (LASIX) tablet 40 mg 40 mg, oral, 2 times daily (for diuretics), First dose (after last modification) on 04/03/25 at 1600, Hold for SBP < 110 0842 (Given - Provider: Yuliet Adamson RN)1749 (Given - Provider: Yuliet Adamson RN) 0902 (Given - Provider: Yuliet Adamson RN)1608 (Given - Provider: Yuliet Adamson RN) 0900 (Given - Provider: Karrie Hackett, RN)1524 (Given - Provider: Karrie Hackett, RN) ipratropium-albuteroL (DUO-NEB) 0.5-2.5 mg/3 mL nebulizer solution 3 mL 3 mL, nebulization, Every 6 hours while awake (product responsibility liaison), First dose on 04/02/25 at 0900, Indications: disorder of respiratory system 0855 (Given - Provider: Senia Pro, LAND SURVEYOR ASSISTANT)1527 (Given - Provider: Senia Pro, LAND SURVEYOR ASSISTANT)2112 (Given - Provider: Joss Campbell, LAND SURVEYOR ASSISTANT) 0819 (Given - Provider: Shania Yusuf, LAND SURVEYOR ASSISTANT)1717 (Given - Provider: Shania Yusuf, LAND SURVEYOR ASSISTANT)211 (Given - Provider: Alexx Rose, LAND SURVEYOR ASSISTANT) 0726 (Given - Provider: Laura Joiner, LAND SURVEYOR ASSISTANT - Comment: Patient requested early)1443 (Given - Provider: Laura Joiner, LAND SURVEYOR ASSISTANT)210 (Given - Provider: Krys Bullock, JO) lidocaine (GLYDO) 2 % jelly 100 mg 100 mg (5 mL), urethral, 2 times daily, First dose on Fri04/06/25 at 1115 1525 (Given - Provider: Karrie Hackett RN)2230 (Not Given - Provider: Marie Oleary - Reason: Patient/family refused) pantoprazole (PROTONIX) 40 mg in sodium chloride 0.9% 10 mL IV Syringe (CANCELED) 40 mg, intravenous, at 300 mL/hr, Administer over 2 Minutes, 2 times daily, First dose on Fri04/01/25 at 2245, For IV administration, reconstitute 40 mg vial with 10 mL sodium chloride 0.9% for injection for a final concentration of 4 mg/mL, Indications: GI Bleed 0843 (Given - Provider: Yuliet Adamson RN)2030 (Given - Provider: Audrey Sousa RN) 902 (Given - Provider: Yuliet Adamson RN)1999 (Given - Provider: Charmaine Lyman RN) 0859 (Given - Provider: Karrie Hackett RN) pantoprazole DR (PROTONIX) extended release tablet 40 mg 40 mg, oral, 2 times daily, First dose on Fri04/06/25 at 1400, Do not crush, chew, cut, dissolve, open or otherwise manipulate tablet/capsule., Indications: GI Bleed 1524 (Given - Provider: Karrie Hackett RN)1955 (Given - Provider: Marie Oleary) potassium chloride ER (KLOR-CON) extended release tablet 40 mEq (COMPLETED) 40 mEq, oral, Once, On Fri04/06/25 at 0330, For 1 dose, Tablets should not be crushed, chewed, dissolved, or otherwise manipulated. Capsules may be opened and sprinkled on a spoonful of applesauce or pudding, but the contents of the capsule should not be crushed or chewed. 0403 (Given - Provider: Charmaine Lyman RN) sertraline (ZOLOFT) tablet 50 mg 50 mg, oral, 2 times daily, First dose on Fri04/02/25 at 0900 0842 (Given - Provider: Yuliet Adamson RN)2031 (Given - Provider: Audrey Sousa RN) 901 (Given - Provider: Yuliet Adamson RN)2000 (Given - Provider: Charmaine Lyman RN) 0859 (Given - Provider: Karrie Hackett RN)2229 (Not Given - Provider: Marie Oleary - Reason: Patient/family refused) tamsulosin (FLOMAX) extended release capsule 0.4 mg 0.4 mg, oral, Daily with dinner, First dose on 04/02/25 at 1800, Do not crush, chew, cut, dissolve, open or otherwise manipulate tablet/capsule. 1749 (Given - Provider: Yuliet Adamson RN) 1739 (Given - Provider: Yuliet Adamson RN) 1823 (Given - Provider: Karrie Hackett RN) PRN Medication Order 2025 04/05/2025 04/06/2025 acetaminophen (TYLENOL) tablet 1,000 mg 1,000 mg, oral, Every 6 hours PRN, 1st line for pain, fever, fever greater than 38.3 C, Starting on 04/03/25 at 1305, Indications: Fever, Pain 2031 (Not Given - Provider: Audrey Sousa RN - Reason: Patient/family refused) ALPRAZolam (XANAX) tablet 0.25 mg 0.25 mg, oral, 2 times daily PRN, anxiety, Starting on 04/03/25 at 0845 1431 (Given - Provider: Yuliet Adamson RN) 0901 (Given - Provider: Yuliet Adamson RN)1608 (Given - Provider: Yuliet Adamson RN) 1729 (Given - Provider: Karrie Hackett RN) ipratropium-albuteroL (DUO-NEB) 0.5-2.5 mg/3 mL nebulizer solution 3 mL 3 mL, nebulization, Every 4 hours PRN (product responsibility liaison), wheezing, shortness of breath, Starting on 04/02/25 at 0609 1117 (Given - Provider: Laura Joiner, JO) morphine 2 mg/mL oral solution 5 mg 5 mg, oral, Every 4 hours PRN, other, Dyspnea, Starting on 04/03/25 at 1305 0841 (Given - Provider: Yuliet Adamson RN)1431 (Given - Provider: Yuliet Adamson RN) 0343 (Given - Provider: Audrey Sousa RN)0901 (Given - Provider: Yuliet Adamson, GREGORY)1608 (Given - Provider: Yuliet Adamson RN) 0214 (Given - Provider: Charmaine Lyman RN)1307 (Given - Provider: Karrie Hackett, RN)1959 (Given - Provider: Marie Oleary) ondansetron (ZOFRAN) injection 4 mg 4 mg, intravenous, Administer over 2 Minutes, Every 6 hours PRN, nausea, vomiting, Starting on 04/04/25 at 1212 polyethylene glycol (MIRALAX) packet 17 g 17 g, oral, Daily PRN, constipation, Starting on 04/02/25 at 0509, Indications: constipation 1730 (Given - Provider: Karrie Hackett, GREGORY) ramelteon (ROZEREM) tablet 8 mg 8 mg, oral, Nightly PRN, sleep, Starting on 04/02/25 at 0509, Indications: Sleep-Onset Insomnia 1999 (Given - Provider: Charmaine Lyman RN) documented in this encounter Orders Medications Ordered That Faustino ht Not Have Been Administered Count Last Ordered Date First Ordered Date ondansetron (ZOFRAN) injection 4 mg 1 04/04 acetaminophen (TYLENOL) tablet 1,000 mg 1 1 06/03/2024 furosemide (LASIX) tablet 40 mg 2 5 04/02/2025 morphine concentrate 10 mg/0 .5 mL CONCENTRATED oral solution 5 mg 1 04/03/2025 acetaminophen (TYLENOL) tablet 650 mg 1 ALPRAZolam (XANAX) tablet 0.25 mg 1 025 benzocaine-menthoL (CHLORASE PTIC) lozenge 1 lozenge 1 04/02/2025 famotidine (PEPCID) tablet 20 mg 1 04/02/20 25 Lab Orders Without Results Count Last Ordered D ate First Ordered Date MAGNESIUM 1 04/06/2025 FERRITIN 1 2025 IRON PROFILE W/ IBC 1 2025 POCT CREATININE - DEVICE 1 04/01/2025 Diet Count Last Ordered Date First Orde red Date ADULT DISCHARGE DIET 1 04/06/2025 Nursing Count Last Ordered Date First Orde red Date DISCHARGE ACTIVITY 1 04/06/2025 DISCHARGE CALL PROVIDER 2 04/06/2025 DISCHARGE INSTRUCTIONS 1 04/06/2025 STRAIGHT CATH 1 04/05/2025 Consult Count Last Ordered Date First Orde red Date IP CONSULT TO GASTROENTEROLOGY 1 04/02/2025 IP CONSULT TO NUTRITION SERVICES 1 04/02/20 Admission Count Last Ordered Date First Orde red Date ADMIT TO INPATIENT 1 04/02/2025 Transfer Count Last Ordered Date First Orde red Date TRANSFER PATIENT TO NEW UNIT 1 04/02/2025 Discharge Count Last Ordered Date First Orde red Date DISCHARGE PATIENT 1 04/06/2025 CORE MEASURES Count Last Ordered Date First Ord ered Date REASON FOR NO VTE PROPHYLAXI S - HOSPITAL ADMISSION - MEDICATIONS 1 04/02/2025 documented in this encounter Additional Health Concerns Infection Onset Date Last Indicated Resolved Time C. 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
--- OUTSIDE RECORDS SUMMARY | 2025-04-01 22:17 | XMS_ITS | Encounter Summary ---
Author Organization [facility] Healthcare Address [address] [place], [place] [id number] Care Team Providers Care Trial Mgr Name Role Phone Jayjay Fernandes MD Primary Care Provider [phone] Reason for Referral * Consultation (Routine) - Authorized Specialty Diagnoses / Procedures Referred By Contac t Referred To Contact Palliative Care Diagnoses Chronic dyspnea Marilyn Ardon MD [address] [place] [address] Phone: tel: fax: [facility] Outpatient Health - Palliative Care [address] [place] [address] Phone: tel: fax: Referral ID Status Reason Start Date Expiration Date Visits Requested Visits Authorized [id number] Authorized Specialty Services Required 04/06/2025 05/06/2026 1 1 Question Answer Have you personally discussed this referral with the patient or significant other? Yes Reason for Referral Pain and symptom management Please select the performing region: [facility] [[id number]] Please select the performing department: [facility] [[id number]] # of visits: 1 CT SUPPORT STAFF * Consultation (Routine) - Pending Review Specialty Diagnoses / Procedures Referred By Contac t Referred To Contact Surgery / Colon and Rectal Surgery Diagnoses ABLA (acute blood loss anemia) Marilyn Ardon MD [address] [place] [address] Phone: tel: fax: [facility] (All Locations) Referral ID Status Reason Start Date Expiration Date Visits Requested Visits Authorized [id number] Pending Review Specialty Services Required 04/06/2025 05/06/2026 1 1 Question Answer Please select the performing region: [facility] (All Locations) [[id number]] # of visits: 1 Comments Consideration of partial colectomy for recurrent diverticular bleeding CT SUPPORT STAFF Reason for Visit * Reason Comments Black or Bloody Stool * Auth/Cert (Routine) Specialty Diagnoses / Procedures Referred By Contac t Referred To Contact Diagnoses Hematochezia Chronic respiratory acidosis (HCC) Diverticulosis Gastrointestinal hemorrhage, unspecified gastrointestinal hemorrhage type Procedures NA Referral ID Status Reason Start Date Expiration Date Visits Re quested Visits Authorized [id number] 1 1 Encounter Details Date Type Department Care Team (Latest Contact Info) Description 04/01/2025 10:17 PM DIRECT SUPPORT STAFF - 04/06/2025 10:33 PM DIRECT SUPPORT STAFF Hospital Encounter [facility] [address] [place] [address] Aristeo Plunkett Jr., MD [address] [place] [address] Samia Jalloh DO [address] [facility] [phone] [place] [address] Jennifer Burris MD [address] [place] [address] Suyapa Syed MD [address] [place] [address] Marilyn Ardon MD [address] [place] [address] Gastrointestinal hemorrhage, unspecified gastrointestinal hemorrhage type (Primary [...] on file Legal Sex Male 9:52 PM DIRECT SUPPORT STAFF Gender Identity Not on file Sexual Orientation Not on file documented as of this encounter Last Filed Vital Signs Vital Sign Reading Time Taken Comments Blood Pressure 148/61 04/06/2025 7:46 PM DIRECT SUPPORT STAFF Pulse 102 04/06/2025 9:05 PM DIRECT SUPPORT STAFF Temperature 36.8 C (98.2 F) 04/06/2025 7:46 PM DIRECT SUPPORT STAFF Respiratory Rate 18 04/06/2025 9:05 PM DIRECT SUPPORT STAFF Oxygen Saturation 95% 04/06/2025 9:05 PM DIRECT SUPPORT STAFF Inhaled Oxygen Concentration - - Weight 63.5 kg (140 lb 1.6 oz) 04/03/2025 1:35 P M DIRECT SUPPORT STAFF Height - - Body Mass Index - - documented in this encounter Functional Status * C.A.G.E. Question Answer Date of Assessment Author Have you ever felt the need to Cut down on your drinking? 0 04/02/2025 9:00 AM DIRECT SUPPORT STAFF Gabrielle Lambert RN Have people ever Annoyed yo u by criticizing your drinking? 0 04/02/2025 9:00 AM DIRECT SUPPORT STAFF Evelyn Lambert RN Have you ever felt bad or G uilty about your drinking? 0 04/02/2025 9:00 AM Evelyn Conklin RN Have you ever had a drink fi rst thing in the morning to steady your nerves or get rid of a hangover? Eye head silverman? 0 04/02/2025 9:00 AM Evelyn Conklin RN CAGE SCORE: 2 or Greater = Positive 0 04/02 9:00 AM DIRECT SUPPORT STAFF Evelyn Lambert RN * Difference in Last Two Kennedy Scores Answer Date of Assessment Author 0 04/06/2025 7:59 PM DIRECT SUPPORT STAFF Vickey Oleary * Maher Fall Risk Question Answer Date of Assessment Author History of Falling 0 04/06/2025 9:00 AM DIRECT SUPPORT STAFF Karrie Hackett RN Secondary Diagnosis 15 04/06/2025 9:00 AM CS Karrie Samano RN Ambulatory Aids 0 04/06/2025 9:00 AM DIRECT SUPPORT STAFF Karrie Kwon RN Intravenous Therapy/Heparin/ Saline Lock 20 04/06/2025 9:00 AM DIRECT SUPPORT STAFF Karrie Hackett RN Gait/Transferring 10 04/06/2025 9:00 AM DIRECT SUPPORT STAFF Karrie Hackett RN Mental Status 0 04/06/2025 9:00 AM DIRECT SUPPORT STAFF Karrie Wagner RN Morse Fall Risk Score (Score >= 45 places fall precaution order) 45 04/06/2025 9:00 AM DIRECT SUPPORT STAFF Karrie Hackett RN Prior Fall Event (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) None found 04/06/2025 9:00 AM DIRECT SUPPORT STAFF Karrie Hackett RN * Kennedy Scale Question Answer Date of Assessment Author Sensory Perceptions 4 04/06/2025 7:59 PM CS T Walker Marie Moisture 3 04/06/2025 7:59 PM DIRECT SUPPORT STAFF Walke r, Marie Activity 3 04/06/2025 7:59 PM DIRECT SUPPORT STAFF Walke r, Marie Mobility 3 04/06/2025 7:59 PM DIRECT SUPPORT STAFF Walke r, Marie Nutrition 3 04/06/2025 7:59 PM DIRECT SUPPORT STAFF Walke r, Marie Friction and Shear 2 04/06/2025 7:59 PM DIRECT SUPPORT STAFF Marie Oleary Kennedy Scale Score 18 04/06/2025 7:59 PM DIRECT SUPPORT STAFF Marie Oleary * Question Answer Date of Assessment Author BP Location Left arm 04/06/2025 7:46 PM DIRECT SUPPORT STAFF Mignon Ponce BP Method Automatic 04/06/2025 7:46 PM DIRECT SUPPORT STAFF Mignon Ponce MAP (mmHg) 86 04/06/2025 7:46 PM DIRECT SUPPORT STAFF Mignon Ponce * Fall Risk Interventions Question Answer Date of Assessment Author All Low Fall Interventions Applied Yes 04/06/2025 9:00 AM Karrie Busby R N All Moderate Fall Interventions Applied No 04/06/2025 9:00 AM DIRECT SUPPORT STAFF Karrie Hackett R N All Moderate Fall [...] more high risk) 0 04/02/2025 3:36 AM DIRECT SUPPORT STAFF Marco Reynolds RN * Integumentary Question Answer Date of Assessment Author Skin Color Appropriate for ethnicity 04/06/2025 9:00 AM DIRECT SUPPORT STAFF Karrie Hackett RN Skin Condition/Temp Warm;Dry 04/06/2025 9 :00 AM Karrie Busby RN Skin Integrity Bruising 04/06/2025 7:59 PM DIRECT SUPPORT STAFF Marie Oleary Skin Turgor Epidermis thin with loss of subcutaneous tissue 04/06/2025 7:59 PM DIRECT SUPPORT STAFF Marie Oleary Integumentary Additional Assessments Yes-Kennedy 04/06/2025 7:59 PM DIRECT SUPPORT STAFF Marie Oleary Integumentary (WDL) X 04/06/2025 7 :59 PM DIRECT SUPPORT STAFF Marie Oleary Skin Location generalized 04/05/2025 8:04 PM DIRECT SUPPORT STAFF Charmaine Lyman RN * Question Answer Date of Assessment Author Affect Anxious/Worried 04/06/2025 5:15 PM DIRECT SUPPORT STAFF Karrie Kwon RN Mood Anxious/Worried 04/06/2025 5:15 PM DIRECT SUPPORT STAFF Karrie Kwon RN * Question Answer Date of Assessment Author Percent Meal Eaten (%) 25 04/05/2025 8:50 AM DIRECT SUPPORT STAFF Mignon Ponce Feeding Level of Assistance Able to feed self 04/06/2025 9:40 AM DIRECT SUPPORT STAFF Beverley Dumont Appetite Fair 04/05/2025 8:50 AM [...] 2 04/02/2025 5:34 AM Gina Buck RN MEDICAL CONCIERGE Evaluation Needed 2 04/02/2025 5:34 AM Gina [...] Bull RN Patient is in need of MEDICAL CONCIERGE Order: No MEDICAL CONCIERGE order needed from this assessment 04/02/2025 5:34 AM Gina Bull RN * Hygiene Question Answer Date of Assessment Author Hygiene Back rub 04/05/2025 11:00 AM DIRECT SUPPORT STAFF Mignon Ponce Hygiene Level of Assistance Moderate assist 04/06/2025 12:00 PM Beverley Melgar Toileting: Assistance with Bedside commode 04/05/2025 8:00 PM Charmaine Gilliam RN Toileting: Level of assistance Minimal 04/05/2025 8:00 PM Charmaine Gilliam RN Reason not bathed/showered Patient/family refused bath/shower 04/02/2025 9:10 PM DIRECT SUPPORT STAFF Turner Vidal Perineal Care Mónica Care 2025 8:39 PM DIRECT SUPPORT STAFF Audrey Sousa RN Linens Absorbent pad changed;Draw sheet changed;Extra [place] 04/05/2025 11:00 AM DIRECT SUPPORT STAFF Mignon Ponce Bath Bathed/showered with chlorhexidine (CHG) 04/06/2025 12:00 PM DIRECT SUPPORT STAFF Beverley Dumont documented as of this encounter Mental Status * Question Answer Entry Date Author Orientation Oriented X4 (person, place, time, situation) 04/06/2025 1:19 PM DIRECT SUPPORT STAFF Cande Collins, PT * Question Answer Entry Date Author Level of Consciousness Alert;Awake 04/06/2025 9:00 AM DIRECT SUPPORT STAFF Karrie Hackett RN Neuro (WDL) X 04/06/2025 [...] this name and address after me Rubio Branodn [address] [place] [address] 04/03/2025 9:19 AM Anaid Rao OT Short Blessed Total Score 6 04/03/2025 9:19 AM Anaid Rao OT documented in this encounter Discharge Summaries * Marilyn Ardon MD - 04/06/2025 2:19 PM CST Inpatient Discharge Summary BRIEF OVERVIEW Admitting Provider: Aristeo Plunkett Jr., MD Discharge Provider: Marilyn Ardon MD Primary Care Physician at Discharge: Jayjay Fernandes MD [phone] Admission Date: 04/01/2025 Discharge Date: 04/06/2025 Admission Location: [facility] Problems/Diagnoses: Principal Problem: ABLA (acute blood loss [...] he developed BRBPR again and went to [facility] for 4 days. Records not available [...] and discharged few days before presenting to [facility] this admission. Last colonoscopy was 2017. He [...] daily Commonly known as: FLOMAX Outpatient Follow-Up: CT SUPPORT STAFF documented in this encounter Medications at Time [...] 1441 Discharge Summary Discharge Disposition Other (Comment) ([facility]) Recommended Discharge Level of Care Other (Comment) Actual Discharge Level of Care Other (Comment) Post Acute Care Plan Post Acute Care Needs Identified Yes Home Care Services N/A OP Services N/A DME N/A Post Acute Care Facility Yes Referral Status Accepted Accepted Post Acute Care Location and Contact [facility] report # [phone] Accepted Post Acute Care Discharge Additional Assistance [...] at this time. Patient has been acceptedto [facility]. CM spoke with the patient/family, admissions, medical [...] their responsibilities to ensure the safe transfer. CT SUPPORT STAFF * Cande Collins, PT - 04/06/2025 1:19 [...] treatment team and contact the PT or KITCHEN CLERK currently assigned to this patient. If a physical therapy clinician is not assigned to this patient, please call [phone]. 04/06/25 1319 General Chart Reviewed Yes Session [...] (Comment) (walking stick) Prior Function Level of [place] Independent functional transfers;Independent with ambulation Lives With Alone Receives Help From- Available Friend(s);Neighbor;maritime engineer Receives Help From-Currently Friend(s);Neighbor;maritime engineer Fall within the last 6 months No [...] with Outstretched Arm While Standing 0 9. Operations Team Leader Object from Floor from a Standing Position [...] and from stand SBA 04/06/25 04/13/25 -- CT SUPPORT STAFF * Yuliet Jang OT - 04/06/2025 10:49 [...] not assigned to this patient, please call [phone]. 04/06/25 9504 General Session Type Treatment OT Received On [...] all ADLs with SPV. 04/03/25 04/24/25 -- CT SUPPORT STAFF * Marilyn Ardon MD - 04/06/2025 10:42 AM CST Daily Progress Note Division of Hospital Medicine Name: Chip Emery : 1940 Today's Date: April 06, 2025 Age: 85 y.o. male Admission: 04/01/2025 Bed: [id number] LOS: 4 days Subjective Interval History Continued [...] and discharged few days before presenting to [facility]. Last colonoscopy was 2017. He is not [...] HFrEF (heart failure with reduced ejection fraction) ([facility]) OSH TTE 07/2024 w/ EF 35-40%. Home [...] Update Discharge Readiness Information Marilyn Ardon MD CT SUPPORT STAFF * Shania Yusuf, LEATHER WHITENER - 04/05/2025 6:02 PM CST Respiratory Medication [...] will continue to monitor the patient's progress. CT SUPPORT STAFF * Jennifer Burris MD - 2025 11:59 AM CST Daily Progress Note Division of Hospital Medicine Name: Chip Emery : 1940 Today's Date: 2025 Age: 85 y.o. male Admission: 04/01/2025 Bed: [id number] LOS: 2 days Subjective Interval History Seen [...] and discharged few days before presenting to [facility]. Last colonoscopy was 2017. He is not [...] HFrEF (heart failure with reduced ejection fraction) ([facility]) OSH TTE 07/2024 w/ EF 35-40%. Home [...] members so POA = Friend Wei Tejada [phone]. Code status was confirmed to be DNRDNI [...] described in the note. Jennifer Burris MD CT SUPPORT STAFF * Senia Pro, LEATHER WHITENER - 2025 9:07 AM CST Respiratory Medication [...] will continue to monitor the patient's progress. CT SUPPORT STAFF * Jennifer Burris MD - 04/03/2025 11:51 AM CST Daily Progress Note Division of Hospital Medicine Name: Chip Emery : 1940 Today's Date: April 03, 2025 Age: 84 y.o. male Admission: 04/01/2025 Bed: [id number] LOS: 1 days Subjective Interval History Seen [...] and discharged few days before presenting to [facility]. Last colonoscopy was 2017. He is not [...] HFrEF (heart failure with reduced ejection fraction) ([facility]) OSH TTE 07/2024 w/ EF 35-40%. Home [...] members so POA = Friend Wei Tejada [phone] - confirmed DNRDNI on 04/02 FELICITY (acute [...] 80 minutes which was spent performing a duhr-dy-ulrv encounter and personally completing the provider-level activities documented in the note. This includes time spent prior to the visit and after the visit in direct care of the patient. This time does not include time spent in any separately reportable services. Jennifer Burris MD CT SUPPORT STAFF * Anaid Lezama, OT - 04/03/2025 9:19 [...] not assigned to this patient, please call [phone]. 04/03/25 0914 General Chart Reviewed Yes Session Type Evaluation [...] Equipment-Currently Using None Prior Function Level of [place] Independent with ADLs;Independent functional transfers;Independent with ambulation;Independent with homemaking with ambulation Lives With Alone Receives Help From- Available Friend(s);Neighbor;skate shop attendant;maritime engineer Receives Help From-Currently Friend(s);Neighbor;skate shop attendant;maritime engineer (Pt's friend/neighbor drives) Driving No Mode of Transportation Driven by others ADL Assistance Independent Instrumental ADL (IADL) Assistance Needs assistance (Cleaning lady comes in 1x/wk for 2 hours to clean and do laundry) Meal Prep Independent Laundry Total Cleaning Total Shopping Independent Egg Buyer Independent Medical Management Independent Fall within the [...] name and address after me Rubio Brandon [address] [place] [address] Without looking at the clock, tell me [...] all ADLs with SPV. 04/03/25 04/24/25 -- CT SUPPORT STAFF * Jennifer Burris MD - 04/02/2025 10:49 AM CST Accept Note Division of Hospital Medicine Name: Chip Emery : 1940 Service Date: April 02, 2025 Age: 84 y.o. male Admit Date: 04/01/2025 Bed: [id number] LOS: 0 days I assumed care of [...] for secondary prevention -PTOT Jennifer Burris MD CT SUPPORT STAFF * Senia Pro, LEATHER WHITENER - 04/02/2025 10:00 AM CST HOME REGIMENT: [...] will continue to monitor the patient's progress. CT SUPPORT STAFF documented in this encounter H&P Notes * Lida Borja MD PhD - 04/02/2025 6:16 AM CST History and Physical Division of [facility] Medicine Name: Chip Emery : 1940 Today's Date: April 02, 2025 Age: 84 y.o. male Admit Date: 04/01/2025 Bed: [id number] LOS: 0 days Subjective HPI Chip Emery [...] he developed BRBPR again and went to [facility] for 4 days. Records not available [...] active bleeding) and 4 days prior at [facility] (records not available but no transfusions [...] members so POA = Friend Wei Tejada [phone] - confirmed DNRDNI on 04/02 Code status : LIMITED - No CPR Diet : NPO Diet Ice chips, Sips with meds Update Discharge Readiness Information Supplementary Attestation My total encounter time on this service date was 99 minutes which was spent performing a fvcs-sg-mlzy encounter and personally completing the provider-level activities documented in the note. This includes time spent prior to the visit and after the visit in direct care of the patient. This time does not include time spent in any separately reportable services. Lida Borja MD PhD CT SUPPORT STAFF documented in this encounter Consult Notes * [...] 1.21 CREATININE POC -- < > -- IGB-HGP-MBHISPO mL/min/1.73 m2 69 < > 59* CALCIUM [...] Start Ordered 04/03/25 1336 Oral Nutrition Supplements ([facility]) Select Supplement: Ensure High Protein - Any Flavor;Quantity (# of cans): 1 can With Lunch and Dinner Question Answer Comment ([facility]) Select Supplement: Ensure High Protein - Any Flavor Quantity (# of cans): 1 can 04/03/25 1335 04/02/25 1111 Adult Diet Restricted; Low Fat, Low Cholesterol, Low Sodium Diet effective now Question Answer Comment ([facility]) Diet type Restricted Fat / Sodium Restriction: Low Fat, Low Cholesterol, Low Sodium 04/02/25 1110 Allergies: Reviewed. IMPRESSION: Pt reports eating less this AM d/t having difficulty breathing. Pt reports weight and appetite werestable KITCHEN CLERK. Pt reports using nutrition supplements on occasion, [...] Jaramillo RD, LD Clinical Dietitian, [facility] [phone] CT SUPPORT STAFF * Joss Anguiano MD - 04/02/2025 12:13 [...] after lunch on Wednesday 04/04. NPO at [facility] Friday night except for bowel prep. - [...] Norris Webber MD at 04/02/2025 2:[address] SUPPORT STAFF CT SUPPORT STAFF CT SUPPORT STAFF CT SUPPORT STAFF Associated attestation - Norris Webber MD - 04/02/2025 2:24 PM DIRECT SUPPORT STAFF I saw and examined the patient on [...] Glass, cell phone,PAO2 monitor (personal). PIV removed. chiseler head Brooke present at bedside. Patient confirms that he is being transferred to [facility] and agrees to transport. Patient validates the time at 22:05. CT SUPPORT STAFF CT SUPPORT STAFF * Gina Watt RN - 04/02/2025 5:00 AM CST This RN received report on this patient from the ED between [id number]. Once the patient arrived to 7500, this [...] any immediate concerns. This RN notified the bellows charger assembler, who got in contact with the household chores and patient placement on the error that had occurred. It was established that this patient was intended to be a medicine patient and could transfer to an appropriate floor when available. CT SUPPORT STAFF documented in this encounter ED Notes * Aristeo Plunkett Jr., MD - 04/01/2025 10:40 PM CST HPI Chief Complaint Patient presents with Black or Bloody Stool HPI 84-year-old male with a PMH CAD, COPD, BPH, presents to the emergency department with hematochezia. Patient recently admitted to [facility] with a GI bleed. He states this [...] Course as of 04/02/25 1552 Time: 04/01 3744 Comment: 84 yo male PMH-CAD, CABG, COPD, HTN, here c/o GI bleed, has BRBPR, has had this before in the past, recent admission to [place] for GI bleed and discharged this morning, [...] NPO. By: Bola Harris MD Time: 04/02 754 Comment: Pt admitted to medicine to follow H&H given GI bleeding, pt with history of diverticulosis which could be the source, CT shows nothing acute By: Aristeo Plunkett Jr., MD Time: 04/02 630 Comment: Surgery reports patient was admitted to [...] Working with trauma, ED charge, admit office, [facility] and medicine to correct the admit order [...] note. Aristeo Plunkett Jr., MD 04/02/[address] SUPPORT STAFF * Marco Reynolds RN - 04/01/2025 10:19 PM CST Pt DELMIS, was admitted for GI bleed at outside hospital, discharged this morning, pt still having large bloody stools, feeling progressively weaker, history of previous GI bleeds an ddiverticulitis CT SUPPORT STAFF * Analia Archibald RN - 04/01/2025 10:17 PM CST Bed: ED1-15 Expected date: Expected time: Means of arrival: Comments: EMS Analia Archibald RN 04/01/[address] SUPPORT STAFF documented in this encounter Miscellaneous Notes * [...] the Shift: VSS, safety and comfort, I/O [facility] Patient Centered Goal for Treatment: safe d/c Summary: VSS, dyspnea monitored, I&Os monitored. Patient to leave by EMS to [facility]. Report given to Ya at 1600. Patient reported discomfort around malone, MD notified and lidocaine applied. Patient worked with PT and OT. Call light in reach. CT SUPPORT STAFF * Assessment & Plan Note - Marilyn Ardon MD - 04/06/2025 10:50 AM DIRECT SUPPORT STAFF Associated Problem(s): Urinary retention - Cont home finasteride and flomax. - New urinary retention on 04/05, with discomfort. Bladder scan 600+. Persistent retention after straight cath - Malone placed last night - Will likely need repeat void trial at rehab CT SUPPORT STAFF * Assessment & Plan Note - Marilyn Ardon MD - 04/06/2025 10:50 AM DIRECT SUPPORT STAFF Associated Problem(s): Goals of care, counseling/discussion No family members so POA is friend, Wei Tejada . - Code status was confirmed to be DNR/DNI on 04/[address] SUPPORT STAFF * Assessment & Plan Note - Marilyn Ardon MD - 04/06/2025 10:50 AM DIRECT SUPPORT STAFF Associated Problem(s): ABLA (acute blood loss anemia) Patient presented with recurrent painless hematochezia. Has had this issue since almost 2018. Last eval was with sigmoidoscopy in Jun this year but prep was sub optimal however no active bleeding wasseen. Was also recently admitted at OSH (no scopes or transfusions over there) and discharged few days before presenting to [facility]. Last colonoscopy was 2017. He is not [...] - If bleeding recurs, obtain stat CTA CT SUPPORT STAFF * Assessment & Plan Note - Marilyn Ardon MD - 04/06/2025 10:50 AM DIRECT SUPPORT STAFF Associated Problem(s): Lower GI bleed Patient presented with recurrent painless hematochezia. Has had this issue since almost 2019. Last eval was with sigmoidoscopy in Jun this year but prep was sub optimal however no active bleeding wasseen. Was also recently admitted at OSH (no scopes or transfusions over there) and discharged few days before presenting to [facility]. Last colonoscopy was 2017. He is not [...] - If bleeding recurs, obtain stat CTA CT SUPPORT STAFF * Assessment & Plan Note - Marilyn Ardon MD - 04/06/2025 10:50 AM DIRECT SUPPORT STAFF Associated Problem(s): History of diverticulosis Patient presented with recurrent painless hematochezia. Has had this issue since almost 2018. Last eval was with sigmoidoscopy in Jun this year but prep was sub optimal however no active bleeding wasseen. Was also recently admitted at OSH (no scopes or transfusions over there) and discharged few days before presenting to [facility]. Last colonoscopy was 2017. He is not [...] - If bleeding recurs, obtain stat CTA CT SUPPORT STAFF * Assessment & Plan Note - Marilyn Ardon MD - 04/06/2025 10:50 AM DIRECT SUPPORT STAFF Associated Problem(s): Chronic respiratory failure with hypoxia [...] benefit from palliative care referral on discharge. CT SUPPORT STAFF * Assessment & Plan Note - Marilyn Ardon MD - 04/06/2025 10:50 AM DIRECT SUPPORT STAFF Associated Problem(s): History of COPD On 3 [...] benefit from palliative care referral on discharge. CT SUPPORT STAFF * Assessment & Plan Note - Marilyn Ardon MD - 04/06/2025 10:50 AM DIRECT SUPPORT STAFF Associated Problem(s): Chronic dyspnea, improved On 3 [...] benefit from palliative care referral on discharge. CT SUPPORT STAFF * Assessment & Plan Note - Marilyn Ardon MD - 04/06/2025 10:50 AM DIRECT SUPPORT STAFF Associated Problem(s): Chronic HFrEF (heart failure with [...] could resume later on based on trend CT SUPPORT STAFF * Assessment & Plan Note - Marilyn Ardon MD - 04/06/2025 10:50 AM DIRECT SUPPORT STAFF Associated Problem(s): History of CAD (coronary artery disease) - S/p CABG and ICD. Cont home asa and statin. CT SUPPORT STAFF * Assessment & Plan Note - Marilyn Ardon MD - 04/06/2025 10:50 AM DIRECT SUPPORT STAFF Associated Problem(s): History of ventricular tachycardia - S/p CABG and ICD. Cont home asa and statin. CT SUPPORT STAFF * Assessment & Plan Note - Marilyn Ardon MD - 04/06/2025 10:50 AM DIRECT SUPPORT STAFF Associated Problem(s): History of anxiety - Resuming home xanax and zoloft. CT SUPPORT STAFF * Assessment & Plan Note - Marilyn Ardon MD - 04/06/2025 10:50 AM DIRECT SUPPORT STAFF Associated Problem(s): History of BPH - Cont home finasteride and flomax. - New urinary retention on 04/05, with discomfort. Bladder scan 600+. Persistent retention after straight cath - Malone placed last night - Will likely need repeat void trial at rehab CT SUPPORT STAFF * Plan of Care - Laura Joiner, LEATHER WHITENER - 04/06/2025 7:29 AM CST Respiratory Medication [...] will continue to monitor the patient's progress. CT SUPPORT STAFF * Assessment & Plan Note - Kathryn Phelps PA - 04/05/2025 3:48 PM DIRECT SUPPORT STAFF Associated Problem(s): Chronic HFrEF (heart failure with reduced ejection fraction) ([facility]) OSH TTE 07/2024 w/ EF 35-40%. Home meds include coreg and lasix 40 BID. Appears euvolumic without signs of exacerbation. CXR on 04/02 without edema. Plan: - Cont home lasix to prevent fluid overload, withholding parameters for low BP, his BP has been tolerating well so far - Keep holding coreg for now, monitor BP and could resume later on based on trend CT SUPPORT STAFF * Assessment & Plan Note - Kathryn Phelps PA - 04/05/2025 3:48 PM DIRECT SUPPORT STAFF Associated Problem(s): History of CAD (coronary artery disease) - S/p CABG and ICD. Cont home asa and statin. CT SUPPORT STAFF * Assessment & Plan Note - Kathryn Phelps PA - 04/05/2025 3:48 PM DIRECT SUPPORT STAFF Associated Problem(s): History of ventricular tachycardia - S/p CABG and ICD. Cont home asa and statin. CT SUPPORT STAFF * Assessment & Plan Note - Kathryn Phelps PA - 04/05/2025 3:48 PM DIRECT SUPPORT STAFF Associated Problem(s): History of anxiety - Resuming home xanax and zoloft. CT SUPPORT STAFF * Assessment & Plan Note - Kathryn Phelps PA - 04/05/2025 3:48 PM DIRECT SUPPORT STAFF Associated Problem(s): History of BPH - Cont home finasteride and flomax. - New urinary retention on 04/05, with discomfort. Bladder scan 600+ - Bladder scan/ Straight cath q4 PR[address] SUPPORT STAFF * Assessment & Plan Note - Kathryn Phelps PA - 04/05/2025 3:48 PM DIRECT SUPPORT STAFF Associated Problem(s): Urinary retention - Cont home finasteride and flomax. - New urinary retention on 04/05, with discomfort. Bladder scan 600+ - Bladder scan/ Straight cath q4 [address] SUPPORT STAFF * Assessment & Plan Note - Kathryn Phelsp PA - 04/05/2025 3:48 PM DIRECT SUPPORT STAFF Associated Problem(s): Goals of care, counseling/discussion No family members so POA is friend, Wei Tejada . - Code status was confirmed to be DNR/DNI on 04/[address] SUPPORT STAFF * Assessment & Plan Note - Kathryn Phelps PA - 04/05/2025 3:48 PM DIRECT SUPPORT STAFF Associated Problem(s): ABLA (acute blood loss anemia) Patient presented with recurrent painless hematochezia. Has had this issue since almost 2018. Last eval was with sigmoidoscopy in Jun this year but prep was sub optimal however no active bleeding wasseen. Was also recently admitted at OSH (no scopes or transfusions over there) and discharged few days before presenting to [facility]. Last colonoscopy was 2017. He is not [...] - If bleeding recurs, obtain stat CTA CT SUPPORT STAFF * Assessment & Plan Note - Kathryn Phelps PA - 04/05/2025 3:48 PM DIRECT SUPPORT STAFF Associated Problem(s): Lower GI bleed Patient presented with recurrent painless hematochezia. Has had this issue since almost 2018. Last eval was with sigmoidoscopy in Jun this year but prep was sub optimal however no active bleeding wasseen. Was also recently admitted at OSH (no scopes or transfusions over there) and discharged few days before presenting to [facility]. Last colonoscopy was 2017. He is not [...] - If bleeding recurs, obtain stat CTA CT SUPPORT STAFF * Assessment & Plan Note - Kathryn Phelps PA - 04/05/2025 3:48 PM DIRECT SUPPORT STAFF Associated Problem(s): History of diverticulosis Patient presented with recurrent painless hematochezia. Has had this issue since almost 2018. Last eval was with sigmoidoscopy in Jun this year but prep was sub optimal however no active bleeding wasseen. Was also recently admitted at OSH (no scopes or transfusions over there) and discharged few days before presenting to [facility]. Last colonoscopy was 2017. He is not [...] - If bleeding recurs, obtain stat CTA CT SUPPORT STAFF * Assessment & Plan Note - Kathryn Phelps PA - 04/05/2025 3:48 PM DIRECT SUPPORT STAFF Associated Problem(s): Chronic respiratory failure with hypoxia [...] benefit from palliative care referral on discharge. CT SUPPORT STAFF * Assessment & Plan Note - Kathryn Phelps PA - 04/05/2025 3:48 PM DIRECT SUPPORT STAFF Associated Problem(s): History of COPD On 3 [...] benefit from palliative care referral on discharge. CT SUPPORT STAFF * Assessment & Plan Note - Kathryn Phelps PA - 04/05/2025 3:48 PM DIRECT SUPPORT STAFF Associated Problem(s): Chronic dyspnea, improved On 3 [...] benefit from palliative care referral on discharge. CT SUPPORT STAFF * Consults, Subsequent - Joss Anguiano MD - 04/05/2025 9:41 AM DIRECT SUPPORT STAFF General GI Subsequent Consult Subjective Chief complaint: [...] HFrEF (heart failure with reduced ejection fraction) ([facility]) History of anxiety Chronic respiratory failure with hypoxia ([facility]) Goals of care, counseling/discussion Lower GI bleed [...] Burke Morocho MD at 04/06/2025 9:39 AM DIRECT SUPPORT STAFF CT SUPPORT STAFF CT SUPPORT STAFF Associated attestation - Burke Morocho MD - 04/06/2025 9:39 AM DIRECT SUPPORT STAFF The resident/fellow saw and examined the patient, we discussed their findings, and I am in agreement with the plan based on the discussion with the resident/fellow. I did not personally examine the patient. * Plan of Care - Audrey Sousa RN - 2025 11:24 PM CST Goals: Clinical Goals for the Shift: vss, pain control, I&O, comfort rounds [employer] Patient Centered Goal for Treatment: safe d/c [...] status Provide emotional support Implement safety precautions CT SUPPORT STAFF * Plan of Care - Yuliet Adamson RN - 2025 6:46 PM CST Goals: Clinical Goals for the Shift: VSS, comfort and safety, strict I/O, sleep hygiene and anxiety management, respiratory hygiene [facility] Patient [facility] Goal for Treatment: safe d/c [...] will be avoided or minimized. Outcome: Progressing CT SUPPORT STAFF * Hospital Course - Kathryn Phelps PA - 2025 3:50 PM DIRECT SUPPORT STAFF #ABLA (acute blood loss anemia) #Lower GI bleed #History of diverticulosis Patient presented with recurrent painless hematochezia. Has had this issue since almost 2018. Last eval was with sigmoidoscopy in jun this year but prep was sub optimal however no active bleeding wasseen. Was also recently admitted at OSH (no scopes or transfusions over there) and discharged few days before presenting to [facility] this admission. Last colonoscopy was 2017. He [...] of BPH Continued home finasteride and flomax. CT SUPPORT STAFF CT SUPPORT STAFF CT SUPPORT STAFF * Consults, Subsequent - Anna Cornejo MD - 2025 2:00 PM DIRECT SUPPORT STAFF General GI Subsequent Consult Subjective Chief complaint: [...] Burke Morocho MD at 04/05/2025 6:52 AM DIRECT SUPPORT STAFF CT SUPPORT STAFF CT SUPPORT STAFF Associated attestation - Burke Morocho MD - 04/05/2025 6:52 AM DIRECT SUPPORT STAFF The resident/fellow saw and examined the patient, we discussed their findings, and I am in agreement with the plan based on the discussion with the resident/fellow. I did not personally examine the patient. * Assessment & Plan Note - Jennifer Burris MD - 2025 12:16 PM DIRECT SUPPORT STAFF Associated Problem(s): ABLA (acute blood loss anemia) Patient presented with recurrent painless hematochezia. Has had this issue since almost 2018. Last eval was with sigmoidoscopy in jun this year but prep was sub optimal however no active bleeding wasseen. Was also recently admitted at OSH (no scopes or transfusions over there) and discharged few days before presenting to [facility]. Last colonoscopy was 2017. He is not [...] range -If bleeding recurs, obtain stat CTA CT SUPPORT STAFF * Assessment & Plan Note - Jennifer Burris MD - 2025 12:16 PM DIRECT SUPPORT STAFF Associated Problem(s): Lower GI bleed Patient presented with recurrent painless hematochezia. Has had this issue since almost 2018. Last eval was with sigmoidoscopy in jun this year but prep was sub optimal however no active bleeding wasseen. Was also recently admitted at OSH (no scopes or transfusions over there) and discharged few days before presenting to [facility]. Last colonoscopy was 2017. He is not [...] range -If bleeding recurs, obtain stat CTA CT SUPPORT STAFF * Assessment & Plan Note - Jennifer Burris MD - 2025 12:16 PM DIRECT SUPPORT STAFF Associated Problem(s): History of diverticulosis Patient presented with recurrent painless hematochezia. Has had this issue since almost 2018. Last eval was with sigmoidoscopy in jun this year but prep was sub optimal however no active bleeding wasseen. Was also recently admitted at OSH (no scopes or transfusions over there) and discharged few days before presenting to [facility]. Last colonoscopy was 2017. He is not [...] range -If bleeding recurs, obtain stat CTA CT SUPPORT STAFF * Assessment & Plan Note - Jennifer Burris MD - 2025 12:16 PM DIRECT SUPPORT STAFF Associated Problem(s): Chronic respiratory failure with hypoxia [...] benefit from palliative care referral on discharge. CT SUPPORT STAFF * Assessment & Plan Note - Jennifer Burris MD - 2025 12:16 PM DIRECT SUPPORT STAFF Associated Problem(s): History of COPD On 3 [...] benefit from palliative care referral on discharge. CT SUPPORT STAFF * Assessment & Plan Note - Jennifer Burris MD - 2025 12:16 PM DIRECT SUPPORT STAFF Associated Problem(s): Chronic dyspnea, improved On 3 [...] benefit from palliative care referral on discharge. CT SUPPORT STAFF * Assessment & Plan Note - Jennifer Burris MD - 2025 12:16 PM DIRECT SUPPORT STAFF Associated Problem(s): Chronic HFrEF (heart failure with [...] could resume later on based on trend CT SUPPORT STAFF * Assessment & Plan Note - Jennifer Burris MD - 2025 12:16 PM DIRECT SUPPORT STAFF Associated Problem(s): History of CAD (coronary artery disease) S/p CABG and ICD. Cont home asa and statin CT SUPPORT STAFF * Assessment & Plan Note - Jennifer Burris MD - 2025 12:16 PM DIRECT SUPPORT STAFF Associated Problem(s): History of ventricular tachycardia S/p CABG and ICD. Cont home asa and statin CT SUPPORT STAFF * Assessment & Plan Note - Jennifer Burris MD - 2025 12:16 PM DIRECT SUPPORT STAFF Associated Problem(s): History of anxiety Resuming home xanax and zoloft CT SUPPORT STAFF * Assessment & Plan Note - Jennifer Burris MD - 2025 12:16 PM DIRECT SUPPORT STAFF Associated Problem(s): History of BPH Cont home finasteride and flomax CT SUPPORT STAFF * Assessment & Plan Note - Jennifer Burris MD - 2025 12:16 PM DIRECT SUPPORT STAFF Associated Problem(s): Goals of care, counseling/discussion No family members so POA = Friend Wei Tejada [phone]. Code status was confirmed to be DNRDNI on 04/[address] SUPPORT STAFF * Plan of Care - Suzy Crocker [...] OT recommending IPR. The closest rehab is [facility], but this is too far for patient. Patient prefers to stay closer to home and transfer to [facility]. Patient is aware this is less intense than IPR, but prefers to be closer to home. Referral placed and received a phone call from admissions department who is waiting on PT note to be faxed to [phone]. Patient will not need insurance authorization prior to transfer. Transportation: EMS F/U Appointments: to be made prior to dc Patient's Identified Problem/Goal Problem:?Ensure acute medical needs are met and that patient has a safe discharge plan. Goal:?Secure a discharge plan that patient/family are agreeable with?and ensure patient has continuum of care. Patient and/or family are agreeable with plan. assistant front office manager will continue to follow and assist with discharge planning as needed. If any further discharge needs arise, please contact the covering rn case management. CT SUPPORT STAFF * Plan of Care - Krys Mitchell [...] sleep hygiene and anxiety management, respiratory hygiene [facility] Patient [facility] Goal for Treatment: safe d/c CT SUPPORT STAFF * Plan of Care - Yuliet Adamson RN - 04/03/2025 6:50 PM CST Goals: Clinical Goals for the Shift: VSS, comfort and safety, strict I/O, sleep hygiene and anxiety management, respiratory hygiene [employer] Patient Centered Goal for Treatment: safe d/c [...] free from injury from falls Outcome: Progressing CT SUPPORT STAFF * Assessment & Plan Note - Jennifer Burris MD - 04/03/2025 12:17 PM DIRECT SUPPORT STAFF Associated Problem(s): ABLA (acute blood loss anemia) Patient presented with recurrent painless hematochezia. Has had this issue since almost 2019. Last eval was with sigmoidoscopy in jun this year but prep was sub optimal however no active bleeding wasseen. Was also recently admitted at OSH (no scopes or transfusions over there) and discharged few days before presenting to [facility]. Last colonoscopy was 2018. He is not [...] hgb -If bleeding recurs, obtain stat CTA CT SUPPORT STAFF * Assessment & Plan Note - Jennifer Burris MD - 04/03/2025 12:17 PM DIRECT SUPPORT STAFF Associated Problem(s): Lower GI bleed Patient presented with recurrent painless hematochezia. Has had this issue since almost 2018. Last eval was with sigmoidoscopy in jun this year but prep was sub optimal however no active bleeding wasseen. Was also recently admitted at OSH (no scopes or transfusions over there) and discharged few days before presenting to [facility]. Last colonoscopy was 2018. He is not [...] hgb -If bleeding recurs, obtain stat CTA CT SUPPORT STAFF * Assessment & Plan Note - Jennifer Burris MD - 04/03/2025 12:17 PM DIRECT SUPPORT STAFF Associated Problem(s): History of diverticulosis Patient presented with recurrent painless hematochezia. Has had this issue since almost 2018. Last eval was with sigmoidoscopy in jun this year but prep was sub optimal however no active bleeding wasseen. Was also recently admitted at OSH (no scopes or transfusions over there) and discharged few days before presenting to [facility]. Last colonoscopy was 2017. He is not [...] hgb -If bleeding recurs, obtain stat CTA CT SUPPORT STAFF * Assessment & Plan Note - Jennifer Burris MD - 04/03/2025 12:17 PM DIRECT SUPPORT STAFF Associated Problem(s): Chronic HFrEF (heart failure with reduced ejection fraction) (HCC) OSH TTE 07/2024 w/ EF 35-40%. Home meds include coreg and lasix 40 bid. Appears euvolumic without signs of exacerbation. CXR on 04/02 without edema. Plan: -Resume lasix today to prevent fluid overload, withholding parameters for low BP -Keep holding coreg for now, monitor BP and could resume if robust CT SUPPORT STAFF * Assessment & Plan Note - Jennifer Burris MD - 04/03/2025 12:17 PM DIRECT SUPPORT STAFF Associated Problem(s): History of CAD (coronary artery disease) S/p CABG and ICD. Cont home asa and statin CT SUPPORT STAFF * Assessment & Plan Note - Jennifer Burris MD - 04/03/2025 12:17 PM DIRECT SUPPORT STAFF Associated Problem(s): History of ventricular tachycardia S/p CABG and ICD. Cont home asa and statin CT SUPPORT STAFF * Assessment & Plan Note - Jennifer Burris MD - 04/03/2025 12:17 PM DIRECT SUPPORT STAFF Associated Problem(s): History of anxiety Resuming home xanax and zoloft CT SUPPORT STAFF * Assessment & Plan Note - Jennifer Burris MD - 04/03/2025 12:17 PM DIRECT SUPPORT STAFF Associated Problem(s): FELICITY (acute kidney injury) (Resolved 04/03/2025) Cr at baseline CT SUPPORT STAFF * Assessment & Plan Note - Jennifer Burris MD - 04/03/2025 12:17 PM DIRECT SUPPORT STAFF Associated Problem(s): Chronic respiratory failure with hypoxia [...] tolerate -Trial roxanol to help alleviate dyspnea CT SUPPORT STAFF * Assessment & Plan Note - Jennifer Burris MD - 04/03/2025 12:17 PM DIRECT SUPPORT STAFF Associated Problem(s): History of COPD On 3 [...] tolerate -Trial roxanol to help alleviate dyspnea CT SUPPORT STAFF * Assessment & Plan Note - Jennifer Burris MD - 04/03/2025 12:17 PM DIRECT SUPPORT STAFF Associated Problem(s): Chronic dyspnea, improved On 3 [...] tolerate -Trial roxanol to help alleviate dyspnea CT SUPPORT STAFF * Assessment & Plan Note - Jennifer Burris MD - 04/03/2025 12:17 PM DIRECT SUPPORT STAFF Associated Problem(s): Goals of care, counseling/discussion No family members so POA = Friend Wei Tejada [phone] - confirmed DNRDNI on 04/02 CT SUPPORT STAFF * Assessment & Plan Note - Jennifer Burris MD - 04/03/2025 12:17 PM DIRECT SUPPORT STAFF Associated Problem(s): History of BPH Cont home finasteride and flomax CT SUPPORT STAFF * Plan of Care - Nino Junior [...] treatment well. Patient Plan: Continue as ordered CT SUPPORT STAFF * Plan of Care - Gina Watt [...] pain management, safety, fall prevention, sleep hygiene [facility] Patient Cent[facility] Goal for Treatment: safe discharge CT SUPPORT STAFF * Initial Assessments - Dionte Witt RN - 04/02/2025 1:28 PM DIRECT SUPPORT STAFF CM Initial Assessment Interview Note Information Obtained [...] Coverage: Medicare A/B Prescription Coverage: yes Pharmacy: [id number] [address] [facility] [address] [facility] [id number] [id number] [place], [place] - [address] [address] Primary Care Provider: Jayjay Fernandes MD-verified Prior [...] send referrals as needed. Dionte Witt RN CT SUPPORT STAFF * Plan of Care - Evelny Lambert RN - 04/02/2025 9:12 AM CST [...] measures. Summary: Progressing towards goals of care. CT SUPPORT STAFF * Assessment & Plan Note - Lida Borja MD PhD - 04/02/2025 6:17 AM DIRECT SUPPORT STAFF Associated Problem(s): Chronic HFrEF (heart failure with reduced ejection fraction) (HCC) OSH TTE 07/2024 w/ EF 35-40% - OSH stress test 07/2024 w/ showing anterior/anteroseptal/apical myocardial infarction without ischemia - euvolemic on admission Plan: - hold coreg d/t GIB - hold lasix but may need to restart if getting blood transfusions CT SUPPORT STAFF CT SUPPORT STAFF CT SUPPORT STAFF CT SUPPORT STAFF * Assessment & Plan Note - Lida Borja MD PhD - 04/02/2025 6:17 AM DIRECT SUPPORT STAFF Associated Problem(s): History of CAD (coronary artery disease) S/p CABG - statin - hold ASA CT SUPPORT STAFF CT SUPPORT STAFF * Assessment & Plan Note - Lida Borja MD PhD - 04/02/2025 6:17 AM DIRECT SUPPORT STAFF Associated Problem(s): FELICITY (acute kidney injury) (Resolved 04/03/2025) Cr 1.2 (Cr 0.9 in 07/2024) - likely pre-renal. No signs of heart failure to suggest cardiorenal Plan: - may need a bit of fluids CT SUPPORT STAFF CT SUPPORT STAFF CT SUPPORT STAFF * Assessment & Plan Note - Lida Borja MD PhD - 04/02/2025 6:17 AM DIRECT SUPPORT STAFF Associated Problem(s): Primary hypertension Hold antihypertensives d/t GIB CT SUPPORT STAFF CT SUPPORT STAFF * Assessment & Plan Note - Lida Borja MD PhD - 04/02/2025 6:17 AM DIRECT SUPPORT STAFF Associated Problem(s): Chronic respiratory failure with hypoxia (HCC) From COPD, on 3L O2 - only on albuterol at home Plan: - duonebs prn CT SUPPORT STAFF CT SUPPORT STAFF CT SUPPORT STAFF CT SUPPORT STAFF * Assessment & Plan Note - Lida Borja MD PhD - 04/02/2025 6:17 AM DIRECT SUPPORT STAFF Associated Problem(s): ABLA (acute blood loss anemia) Melena + BRBPR. - recurrent GIB since 2019. Hospitalized this year 07/2024 (flex sig done but no active bleeding) and 4 days prior at [facility] (records not available but no transfusions [...] Hold aspirin, anti hypertensives - consult GI CT SUPPORT STAFF CT SUPPORT STAFF CT SUPPORT STAFF * Assessment & Plan Note - Lida Borja MD PhD - 04/02/2025 6:17 AM DIRECT SUPPORT STAFF Associated Problem(s): Goals of care, counseling/discussion No family members so POA = Friend Wei Tejada [phone] - confirmed DNRDNI on 04/[address] SUPPORT STAFF * Assessment & Plan Note - Lida Borja MD PhD - 04/02/2025 6:17 AM DIRECT SUPPORT STAFF Associated Problem(s): History of anxiety Xanax prn nightly CT SUPPORT STAFF CT SUPPORT STAFF * ED Procedure Note - Aristeo Plunkett Jr., MD - 04/02/2025 1:30 AM DIRECT SUPPORT STAFF Associated Order(s): ECG 12 lead Procedure ECG [...] ED Aristeo Plunkett Jr., MD 04/02/[address] SUPPORT STAFF * ED Pre-Arrival Note - Petra Bennett RN - 04/01/2025 10:05 PM DIRECT SUPPORT STAFF Pre-Arrival Note Pt BIBEMS for possible GIB. Patient was just dc'd from hospital for GIB. Patient has has had 3 large bowel movements with tarry stool with bright red blood. Patient lives by self. Patient with history of GIB's. Per EMS VSS and patient A&Ox4. Petra Bennett RN CT SUPPORT STAFF documented in this encounter Plan of Treatment Pending Results Name Type Priority Associated Diagnoses Date /Time Heparin anti factor Xa activity Lab STAT 04/01/2025 10:51 PM DIRECT SUPPORT STAFF Ferritin Lab Routine 04/03/2025 8:2 2 PM DIRECT SUPPORT STAFF Iron profile w/ IBC Lab Routine 04/03 8:22 PM DIRECT SUPPORT STAFF Magnesium Lab Routine 04/05/2025 11: 51 PM DIRECT SUPPORT STAFF Urine culture Urine Microbiology Routine 07/2024 9:17 AM DIRECT SUPPORT STAFF Scheduled Orders Name Type Priority Associated Diagnoses Order Schedule Adult Bronchodilator Therapy Protocol Respiratory Care STAT Until disconti nued until discontinued starting 04/01/2025 Heparin anti factor Xa activity Lab STAT Once for 1 Occurrences starting 04/01/2025 until 04/01/2025 Type and screen Lab Timed Every 3 d ays until discontinued starting 04/02/2025, 1 completed H. pylori antigen, stool Stool Microbiology STAT STAT for 1 Occurrences starting 04/02/2025 until 04/02/2025 Basic metabolic panel Lab Routine AM draw - collect with morning lab draw until discontinued starting 04/03/2025, 3 completed Ferritin Lab Routine Once for 1 Occurrences starting 04/03/2025 until 04/03/2025 Iron profile w/ IBC Lab Routine Once for 1 Occurrences starting 04/03/2025 until 04/03/2025 Magnesium Lab Routine Once for 1 Occurrences starting 04/05/2025 until 04/05/2025 Urine culture Microbiology Routine Once for 1 Occurrences starting 04/06/2025 until 04/06/2025 CBC without differential Lab Routine AM draw - collec t with morning lab draw until discontinued starting 04/07/2025 Scheduled Referrals Name Type Priority Associated Diagnoses [...] MICROSCOPIC AND CULTURE Routine 04/06/2025 9:17 AM DIRECT SUPPORT STAFF URINALYSIS, MICROSCOPIC ONLY Routine 04/06/2025 9:17 AM DIRECT SUPPORT STAFF CBC WITHOUT DIFFERENTIAL Timed 04/06/2025 8:59 AM DIRECT SUPPORT STAFF EGFR Routine 04/05/2025 11:51 PM DIRECT SUPPORT STAFF CBC WITHOUT DIFFERENTIAL Timed 04/05/2025 11:51 PM DIRECT SUPPORT STAFF MAGNESIUM Routine 04/05/2025 11:51 PM DIRECT SUPPORT STAFF BASIC METABOLIC PANEL Routine 04/05/2025 11:51 PM DIRECT SUPPORT STAFF POCT GLUCOSE DEVICE Routine 04/05/2025 8 :36 AM DIRECT SUPPORT STAFF CBC WITHOUT DIFFERENTIAL Timed 04/05/2025 6:59 AM DIRECT SUPPORT STAFF EGFR Routine 2025 9:00 PM DIRECT SUPPORT STAFF CBC WITHOUT DIFFERENTIAL Timed 2025 9:00 PM DIRECT SUPPORT STAFF TYPE AND SCREEN Timed 2025 9:00 PM DIRECT SUPPORT STAFF BASIC METABOLIC PANEL Routine 2025 9:00 PM DIRECT SUPPORT STAFF CBC WITHOUT DIFFERENTIAL Timed 2025 9:49 AM DIRECT SUPPORT STAFF EGFR Routine 04/03/2025 8:22 PM DIRECT SUPPORT STAFF IRON PROFILE W/ IBC Routine 04/03/2025 8 :22 PM DIRECT SUPPORT STAFF CBC WITHOUT DIFFERENTIAL Timed 04/03/2025 8:22 PM DIRECT SUPPORT STAFF FERRITIN Routine 04/03/2025 8:22 PM DIRECT SUPPORT STAFF BASIC METABOLIC PANEL Routine 04/03/2025 8:22 PM DIRECT SUPPORT STAFF CBC WITHOUT DIFFERENTIAL Routine 04/03/2025 4:01 AM DIRECT SUPPORT STAFF EGFR Routine 04/02/2025 7:30 PM DIRECT SUPPORT STAFF CBC WITHOUT DIFFERENTIAL Timed 04/02/2025 7:30 PM DIRECT SUPPORT STAFF CBC WITHOUT DIFFERENTIAL Timed 04/02/2025 7:30 PM DIRECT SUPPORT STAFF BASIC METABOLIC PANEL Routine 04/02/2025 7:30 PM DIRECT SUPPORT STAFF EGFR Timed 04/02/2025 1:23 PM DIRECT SUPPORT STAFF CBC WITHOUT DIFFERENTIAL Timed 04/02/2025 1:23 PM DIRECT SUPPORT STAFF BASIC METABOLIC PANEL Timed 04/02/2025 1:23 PM DIRECT SUPPORT STAFF XR CHEST 1 VIEW ED Urgent/IP Urgent 04/02/2025 10:17 AM DIRECT SUPPORT STAFF CBC WITHOUT DIFFERENTIAL STAT 04/02/2025 6:14 AM DIRECT SUPPORT STAFF ECG 12-LEAD Routine 04/02/2025 3:30 AM DIRECT SUPPORT STAFF TROPONIN I HIGH-SENSITIVITY 2-HOUR Timed 04/02/2025 3:10 AM DIRECT SUPPORT STAFF CBC WITHOUT DIFFERENTIAL Timed 04/02/2025 3:10 AM DIRECT SUPPORT STAFF BLOOD GAS, VENOUS STAT 04/02/2025 1:3 4 AM DIRECT SUPPORT STAFF TROPONIN I HIGH-SENSITIVITY SERIES (BASELINE, 2HR, 4HR, 6HR) STAT 04/02/2025 1:11 AM DIRECT SUPPORT STAFF PRO B-TYPE NATRIURETIC PEPTIDE STAT 04/02/2025 1:10 AM DIRECT SUPPORT STAFF B CHECK SAMPLE STAT 04/02/2025 12:[address] AM DIRECT SUPPORT STAFF CT ABDOMEN PELVIS W WO CONTRAST ED Urgent/IP Urgent 04/02/2025 12:37 AM DIRECT SUPPORT STAFF POCT CREATININE - DEVICE Routine 04/01/2025 11:42 PM DIRECT SUPPORT STAFF EGFR STAT 04/01/2025 10:51 PM DIRECT SUPPORT STAFF DIFFERENTIAL AUTO STAT 04/01/2025 10: 51 PM DIRECT SUPPORT STAFF HEPARIN ANTI FACTOR XA ACTIVITY STAT 04/01/2025 10:51 PM DIRECT SUPPORT STAFF CBC WITH AUTO DIFFERENTIAL STAT 04/01/2025 10:51 PM DIRECT SUPPORT STAFF APTT STAT 04/01/2025 10:51 PM DIRECT SUPPORT STAFF PROTIME-INR STAT 04/01/2025 10:51 PM DIRECT SUPPORT STAFF TYPE AND SCREEN STAT 04/01/2025 10:51 PM DIRECT SUPPORT STAFF COMPREHENSIVE METABOLIC PANEL STAT 04/01/2025 10:51 PM DIRECT SUPPORT STAFF documented in this encounter Results * (ABNORMAL) Urinalysis, microscopic only (04/06/2025 9:17 AM DIRECT SUPPORT STAFF) Pathologist [facility] WBC, ur >50(A) 0 - 5 /HPF RBC, ur >50(A) 0 - 2 /HPF [facility] Epithelial cells, squamous, ur 1-5 0 - 5 /HPF [facility] Bacteria, ur 1+(A) [facility] Mucous, ur Present(A) [facility] Hyaline casts, ur 6-10 0 - 10 /LPF [facility] Culture Reflex Comment Reflex to urine culture will be performed. [facility] Urine 04/06/2025 9:17 AM DIRECT SUPPORT STAFF 04/06/2025 9:48 AM DIRECT SUPPORT STAFF Kathryn JALLOH LAB URINE ORDERABLES Final Result [facility] Department [place] [address] * (ABNORMAL) Urinalysis reflex to microscopic and culture Urine (04/06/2025 9:17 AM DIRECT SUPPORT STAFF) Color, ur Darren Yellow Clarity, ur Cloudy(A) Clear [facility] Specific gravity, ur 1.019 1.003 - 1.030 [facility] pH, urine 5.5 [facility] Comment: Interpretive Data U rine pH is affected by diet, medications, systemic acid-base disturbances, and renal tubular function. pH may affect urinary stone formation. For example, urine pH below 6.0 may help reduce the tendency for calcium phosphate stones and pH greater than 6.0 may reduce the tendency for uric acid stone formation. Source: [facility] Current Interpretive Data was last revised on 2017 Protein, ur ql 1+(A) Negative [facility] Glucose, ur ql Negative Negative [facility] Ketones, ur Negative Negative [facility] Bilirubin, ur Negative Negative [facility] Blood, ur 3+(A) Negative [facility] Urobilinogen, ur <2.0 <2.0 mg/dL [facility] Nitrite, ur Negative Negative [facility] Leukocyte esterase, ur 3+(A) Negative [facility] UA reflex comment Reflex to microscopic UA will be performed. [facility] Urine 04/06/2025 9:17 AM DIRECT SUPPORT STAFF 04/06/2025 9:48 AM DIRECT SUPPORT STAFF Kathryn JALLOH LAB MICROBIOLOGY - NERAL ORDERABLES Final Result [facility] Department [place] [address] * (ABNORMAL) CBC without differential (04/06/2025 8:59 AM DIRECT SUPPORT STAFF) WBC 15.79(H) 3.80 - 9.90 K/cumm Hgb 8.0(L) 13.0 - 17.5 g/dL [facility] Hct 24.6(L) 38.9 - 50.3 % [facility] Plt 293 150 - 400 K/cumm [facility] MPV 9.9 9.1 - 12.3 fL [facility] RBC 2.50(L) 4.30 - 5.80 M/cumm [facility] MCV 98.4(H) 81.3 - 96.4 fL [facility] MCH 32.0 27.1 - 33.3 pg [facility] MCHC 32.5 32.3 - 35.7 g/dL [facility] RDW CV 14.4 11.1 - 14.9 % [facility] RDW SD 49.0(H) 35.7 - 48.1 fL [facility] NRBC abs 0.00 0.00 - 0.01 K/cumm [facility] Blood 04/06/2025 8:59 AM DIRECT SUPPORT STAFF 04/06/2025 9:43 AM DIRECT SUPPORT STAFF us Jennifer Burris MD LAB BLOOD ORDERABLES Final Re sult Performing Organization Address City/[facility] Co de Phone Number [facility] Department [place] [address] * Magnesium (04/05/2025 11:51 PM DIRECT SUPPORT STAFF) Pathologist [facility] Magnesium 2.0 1.4 - 2.5 mg/dL Blood 04/05/2025 11:5 1 PM DIRECT SUPPORT STAFF 04/06/2025 12:43 AM DIRECT SUPPORT STAFF us Suyapa Syed MD LAB BLOOD ORDERABLES Final Resul t Performing Organization Address City/[facility] Co de Phone Number [facility] Department [place] [address] * eGFR (04/05/2025 11:51 PM DIRECT SUPPORT STAFF) eGFR 68 >=60 mL/min/1. 73 m2 Comment: [...] reviewed 2021. Blood 04/05/2025 11:5 1 PM DIRECT SUPPORT STAFF 04/06/2025 12:43 AM DIRECT SUPPORT STAFF us Jennifer Burris MD LAB BLOOD ORDERABLES Final Re sult [facility] Department [place] [address] * (ABNORMAL) CBC without differential (04/05/2025 11:51 PM DIRECT SUPPORT STAFF) WBC 9.47 3.80 - 9.90 K/cumm Hgb 7.1(L) 13.0 - 17.5 g/dL [facility] Hct 22.7(L) 38.9 - 50.3 % [facility] Plt 241 150 - 400 K/cumm [facility] MPV 10.0 9.1 - 12.3 fL [facility] RBC 2.25(L) 4.30 - 5.80 M/cumm [facility] MCV 100.9(H) 81.3 - 96.4 fL [facility] MCH 31.6 27.1 - 33.3 pg [facility] MCHC 31.3(L) 32.3 - 35.7 g/dL [facility] RDW CV 14.2 11.1 - 14.9 % [facility] RDW SD 51.0(H) 35.7 - 48.1 fL [facility] NRBC abs 0.00 0.00 - 0.01 K/cumm [facility] Blood 04/05/2025 11:5 1 PM DIRECT SUPPORT STAFF 04/06/2025 12:44 AM DIRECT SUPPORT STAFF us Jennifer Burris MD LAB BLOOD ORDERABLES Final Re sult [facility] Department [place] [address] * (ABNORMAL) Basic metabolic panel (04/05/2025 11:51 PM DIRECT SUPPORT STAFF) Pathologist [facility] Sodium 143 135 - 145 mmol/L Potassium, pl 3.2(L) 3.3 - 4.9 mmol/L [facility] Chloride 98 97 - 110 mmol/L [facility] CO2 38(H) 22 - 32 mmol/L [facility] Anion gap 7 2 - 15 mmol/L [facility] BUN 17 6 - 25 mg/dL [facility] Creatinine 1.08 0.80 - 1.30 mg/dL [facility] Glucose 105 70 - 199 mg/dL [facility] Comment: Interpretive Data Fasting glucose [...] 2022. Calcium 8.1(L) 8.5 - 10.3 mg/dL [facility] Blood 04/05/2025 11:5 1 PM DIRECT SUPPORT STAFF 04/06/2025 12:43 AM DIRECT SUPPORT STAFF us Jennifer Burris MD LAB BLOOD ORDERABLES Final Re sult [facility] [place] [address] * POCT glucose (04/05/2025 8:36 AM DIRECT SUPPORT STAFF) Glucose, POC 114 70 - 199 mg/dL Blood 04/05/2025 8:36 AM DIRECT SUPPORT STAFF 04/05/2025 8:36 AM DIRECT SUPPORT STAFF us Suyapa Syed MD LAB POCT ORDERABLES - DEVICE Fin al Result Performing Organization Address [facility] de Phone Number [facility] Department [place] [address] * (ABNORMAL) CBC without differential (04/05/2025 6:59 AM DIRECT SUPPORT STAFF) [facility] WBC 14.23(H) 3.80 - 9.90 K/cumm Hgb 7.8(L) 13.0 - 17.5 g/dL [facility] Hct 24.6(L) 38.9 - 50.3 % [facility] Plt 275 150 - 400 K/cumm [facility] MPV 9.7 9.1 - 12.3 fL [facility] RBC 2.50(L) 4.30 - 5.80 M/cumm [facility] MCV 98.4(H) 81.3 - 96.4 fL [facility] MCH 31.2 27.1 - 33.3 pg [facility] MCHC 31.7(L) 32.3 - 35.7 g/dL [facility] RDW CV 13.7 11.1 - 14.9 % [facility] RDW SD 48.4(H) 35.7 - 48.1 fL [facility] NRBC abs 0.00 0.00 - 0.01 K/cumm [facility] Blood 04/05/2025 6:59 AM DIRECT SUPPORT STAFF 04/05/2025 7:25 AM DIRECT SUPPORT STAFF us Jennifer Burris MD LAB BLOOD ORDERABLES Final Re sult Performing Organization Address [facility]/ZIP Co de Phone Number [facility] [place] [address] * eGFR (2025 9:00 PM DIRECT SUPPORT STAFF) [facility] eGFR 61 >=60 mL/min/1. 73 m2 Comment: [...] last reviewed 2021. Blood 2025 9:00 PM DIRECT SUPPORT STAFF 2025 9:34 PM DIRECT SUPPORT STAFF us Jennifer Burris MD LAB BLOOD ORDERABLES Final Re sult [facility] Department [place] [address] * (ABNORMAL) CBC without differential (2025 9:00 PM DIRECT SUPPORT STAFF) [facility] WBC 11.25(H) 3.80 - 9.90 K/cumm Hgb 7.5(L) 13.0 - 17.5 g/dL [facility] Hct 24.2(L) 38.9 - 50.3 % [facility] Plt 249 150 - 400 K/cumm [facility] MPV 9.9 9.1 - 12.3 fL [facility] RBC 2.41(L) 4.30 - 5.80 M/cumm [facility] MCV 100.4(H) 81.3 - 96.4 fL [facility] MCH 31.1 27.1 - 33.3 pg [facility] MCHC 31.0(L) 32.3 - 35.7 g/dL [facility] RDW CV 13.6 11.1 - 14.9 % [facility] RDW SD 49.1(H) 35.7 - 48.1 fL [facility] NRBC abs 0.00 0.00 - 0.01 K/cumm [facility] Blood 2025 9:00 PM DIRECT SUPPORT STAFF 2025 9:33 PM DIRECT SUPPORT STAFF Jennifer Burris MD LAB BLOOD ORDERABLES Final Re sult [facility] Department [place] [address] * (ABNORMAL) Basic metabolic panel (2025 9:00 PM DIRECT SUPPORT STAFF) Sodium 141 135 - 145 mmol/L Potassium, pl 3.7 3.3 - 4.9 mmol/L [facility] Chloride 99 97 - 110 mmol/L [facility] CO2 37(H) 22 - 32 mmol/L [facility] Anion gap 5 2 - 15 mmol/L [facility] BUN 20 6 - 25 mg/dL [facility] Creatinine 1.18 0.80 - 1.30 mg/dL [facility] Glucose 91 70 - 199 mg/dL [facility] Comment: Interpretive Data Fasting glucose [...] 2022. Calcium 8.8 8.5 - 10.3 mg/dL [facility] Blood 2025 9:00 PM DIRECT SUPPORT STAFF 2025 9:34 PM DIRECT SUPPORT STAFF us Jennifer Burris MD LAB BLOOD ORDERABLES Final Re sult [facility] [place] [address] * Type and screen (2025 9:00 PM DIRECT SUPPORT STAFF) [facility] ABO Rh O Positive Todd, indirect Negative [facility] Blood 2025 9:00 PM DIRECT SUPPORT STAFF 2025 9:50 PM DIRECT SUPPORT STAFF Narrative [facility] - 2025 11:01 PM DIRECT SUPPORT STAFF Has the patient had Daratumumab or Isatuximab in the past 6 months?->Unknown us Lida Borja MD PhD LAB BLOOD BANK TEST ORDERAB LES Final Result Performing Organization Address City/[facility]/ZIP Co de Phone Number [facility] [place] [address] * (ABNORMAL) CBC without differential (2025 9:49 AM DIRECT SUPPORT STAFF) [facility] WBC 11.45(H) 3.80 - 9.90 K/cumm Hgb 7.9(L) 13.0 - 17.5 g/dL [facility] Hct 24.7(L) 38.9 - 50.3 % [facility] Plt 233 150 - 400 K/cumm [facility] MPV 9.8 9.1 - 12.3 fL [facility] RBC 2.52(L) 4.30 - 5.80 M/cumm [facility] MCV 98.0(H) 81.3 - 96.4 fL [facility] MCH 31.3 27.1 - 33.3 pg [facility] MCHC 32.0(L) 32.3 - 35.7 g/dL [facility] RDW CV 13.7 11.1 - 14.9 % [facility] RDW SD 48.1 35.7 - 48.1 fL [facility] NRBC abs 0.00 0.00 - 0.01 K/cumm [facility] Blood 2025 9:49 AM DIRECT SUPPORT STAFF 2025 10:50 AM DIRECT SUPPORT STAFF Jennifer Burris MD LAB BLOOD ORDERABLES Final Re sult Performing Organization Address [facility] Co de Phone Number [facility] [place] [address] * (ABNORMAL) Iron profile w/ IBC (04/03/2025 8:22 PM DIRECT SUPPORT STAFF) [facility] Iron 40(L) 50 - 150 mcg/dL TIBC 219(L) 250 - 400 mcg/dL [facility] Transferrin saturation 18(L) 20 - 50 % [facility] Blood 04/03/2025 8:22 PM DIRECT SUPPORT STAFF 04/03/2025 8:46 PM DIRECT SUPPORT STAFF Jennifer Burris MD LAB BLOOD ORDERABLES Final Re sult Performing Organization Address [facility]/ZIP Co de Phone Number [facility] [place] [address] * Ferritin (04/03/2025 8:22 PM DIRECT SUPPORT STAFF) [facility] Ferritin 48 30 - 400 ng/mL Blood 04/03/2025 8:22 PM DIRECT SUPPORT STAFF 04/03/2025 8:46 PM DIRECT SUPPORT STAFF Jennifer Burris MD LAB BLOOD ORDERABLES Final Re sult Performing Organization Address City/[facility]/[place] [address] * eGFR (04/03/2025 8:22 PM DIRECT SUPPORT STAFF) Pathologist [facility] eGFR 72 >=60 mL/min/1. 73 m2 [...] of Race in Diagnosing Kidney Disease, JASN 202). The CKD-EPI equation should not be used for patients with unstable renal function and has not been validated in children and those over 70. Current interpretive data was last reviewed 2021. Blood 04/03/2025 8:22 PM DIRECT SUPPORT STAFF 04/03/2025 8:46 PM DIRECT SUPPORT STAFF us Jennifer Burris MD LAB BLOOD ORDERABLES Final Re sult [facility] Department [place] [address] * (ABNORMAL) Basic metabolic panel (04/03/2025 8:22 PM DIRECT SUPPORT STAFF) Sodium 140 135 - 145 mmol/L Potassium, pl 3.9 3.3 - 4.9 mmol/L [facility] Chloride 99 97 - 110 mmol/L [facility] CO2 35(H) 22 - 32 mmol/L [facility] Anion gap 6 2 - 15 mmol/L [facility] BUN 18 6 - 25 mg/dL [facility] Creatinine 1.03 0.80 - 1.30 mg/dL [facility] Glucose 134 70 - 199 mg/dL [facility] Comment: Interpretive Data Fasting glucose [...] 2022. Calcium 8.5 8.5 - 10.3 mg/dL [facility] Blood 04/03/2025 8:22 PM DIRECT SUPPORT STAFF 04/03/2025 8:46 PM DIRECT SUPPORT STAFF Jennifer Burris MD LAB BLOOD ORDERABLES Final Re sult Performing Organization Address City/[facility]/ZIP Co de Phone Number [facility] [place] [address] * (ABNORMAL) CBC without differential (04/03/2025 8:22 PM DIRECT SUPPORT STAFF) WBC 12.92(H) 3.80 - 9.90 K/cumm Hgb 8.1(L) 13.0 - 17.5 g/dL [facility] Hct 24.8(L) 38.9 - 50.3 % [facility] Plt 248 150 - 400 K/cumm [facility] MPV 9.9 9.1 - 12.3 fL [facility] RBC 2.55(L) 4.30 - 5.80 M/cumm [facility] MCV 97.3(H) 81.3 - 96.4 fL [facility] MCH 31.8 27.1 - 33.3 pg [facility] MCHC 32.7 32.3 - 35.7 g/dL [facility] RDW CV 13.5 11.1 - 14.9 % [facility] RDW SD 47.3 35.7 - 48.1 fL [facility] NRBC abs 0.00 0.00 - 0.01 K/cumm [facility] Blood 04/03/2025 8:22 PM DIRECT SUPPORT STAFF 04/03/2025 8:47 PM DIRECT SUPPORT STAFF Jennifer Burris MD LAB BLOOD ORDERABLES Final Re sult Performing Organization Address City/[facility]/ZIP Co de Phone Number [facility] Department [place] [address] * (ABNORMAL) CBC without differential (04/03/2025 4:01 AM DIRECT SUPPORT STAFF) [facility] WBC 10.04(H) 3.80 - 9.90 K/cumm Hgb 7.8(L) 13.0 - 17.5 g/dL [facility] Hct 23.3(L) 38.9 - 50.3 % [facility] Plt 217 150 - 400 K/cumm [facility] MPV 9.9 9.1 - 12.3 fL [facility] RBC 2.45(L) 4.30 - 5.80 M/cumm [facility] MCV 95.1 81.3 - 96.4 fL [facility] MCH 31.8 27.1 - 33.3 pg [facility] MCHC 33.5 32.3 - 35.7 g/dL [facility] RDW CV 13.4 11.1 - 14.9 % [facility] RDW SD 46.3 35.7 - 48.1 fL [facility] NRBC abs 0.00 0.00 - 0.01 K/cumm [facility] Blood 04/03/2025 4:01 AM DIRECT SUPPORT STAFF 04/03/2025 4:29 AM DIRECT SUPPORT STAFF us Rubin Ricardo MD LAB BLOOD ORDERABLES F inal Result [facility] [place] [address] * eGFR (04/02/2025 7:30 PM DIRECT SUPPORT STAFF) [facility] eGFR 69 >=60 mL/min/1. 73 m2 Comment: [...] last reviewed 2021. Blood 04/02/2025 7:30 PM DIRECT SUPPORT STAFF 04/02/2025 8:30 PM DIRECT SUPPORT STAFF us Jennifer Burris MD LAB BLOOD ORDERABLES Final Re sult [facility] Department [place] [address] * (ABNORMAL) CBC without differential (04/02/2025 7:30 PM DIRECT SUPPORT STAFF) WBC 10.71(H) 3.80 - 9.90 K/cumm Hgb 8.2(L) 13.0 - 17.5 g/dL [facility] Hct 25.3(L) 38.9 - 50.3 % [facility] Plt 250 150 - 400 K/cumm [facility] MPV 9.9 9.1 - 12.3 fL [facility] RBC 2.61(L) 4.30 - 5.80 M/cumm [facility] MCV 96.9(H) 81.3 - 96.4 fL [facility] MCH 31.4 27.1 - 33.3 pg [facility] MCHC 32.4 32.3 - 35.7 g/dL [facility] RDW CV 13.4 11.1 - 14.9 % [facility] RDW SD 47.4 35.7 - 48.1 fL [facility] NRBC abs 0.00 0.00 - 0.01 K/cumm [facility] Blood 04/02/2025 7:30 PM DIRECT SUPPORT STAFF 04/02/2025 8:31 PM DIRECT SUPPORT STAFF us Jennifer Burris MD LAB BLOOD ORDERABLES Final Re sult [facility] [place] [address] * (ABNORMAL) Basic metabolic panel (04/02/2025 7:30 PM DIRECT SUPPORT STAFF) Pathologist [facility] Sodium 143 135 - 145 mmol/L Potassium, pl 3.5 3.3 - 4.9 mmol/L [facility] Chloride 100 97 - 110 mmol/L [facility] CO2 36(H) 22 - 32 mmol/L [facility] Anion gap 7 2 - 15 mmol/L [facility] BUN 18 6 - 25 mg/dL [facility] Creatinine 1.07 0.80 - 1.30 mg/dL [facility] Glucose 165 70 - 199 mg/dL [facility] Comment: Interpretive Data Fasting glucose [...] 2022. Calcium 8.9 8.5 - 10.3 mg/dL [facility] Blood 04/02/2025 7:30 PM DIRECT SUPPORT STAFF 04/02/2025 8:30 PM DIRECT SUPPORT STAFF us Jennifer Burris MD LAB BLOOD ORDERABLES Final Re sult Performing Organization Address [facility]/ZIP Co de Phone Number [facility] [place] [address] * (ABNORMAL) CBC without differential (04/02/2025 7:30 PM DIRECT SUPPORT STAFF) Pathologist [facility] WBC 10.91(H) 3.80 - 9.90 K/cumm Hgb 8.2(L) 13.0 - 17.5 g/dL [facility] Hct 25.7(L) 38.9 - 50.3 % [facility] Plt 251 150 - 400 K/cumm [facility] MPV 10.1 9.1 - 12.3 fL [facility] RBC 2.64(L) 4.30 - 5.80 M/cumm [facility] MCV 97.3(H) 81.3 - 96.4 fL [facility] MCH 31.1 27.1 - 33.3 pg [facility] MCHC 31.9(L) 32.3 - 35.7 g/dL [facility] RDW CV 13.4 11.1 - 14.9 % [facility] RDW SD 47.3 35.7 - 48.1 fL [facility] NRBC abs 0.00 0.00 - 0.01 K/cumm [facility] Blood 04/02/2025 7:30 PM DIRECT SUPPORT STAFF 04/02/2025 8:32 PM DIRECT SUPPORT STAFF us Jennifer Burris MD LAB BLOOD ORDERABLES Final Re sult [facility] [place] [address] * eGFR (04/02/2025 1:23 PM DIRECT SUPPORT STAFF) eGFR 73 >=60 mL/min/1. 73 m2 Comment: [...] last reviewed 2021. Blood 04/02/2025 1:23 PM DIRECT SUPPORT STAFF 04/02/2025 1:46 PM DIRECT SUPPORT STAFF us Lida Borja MD PhD LAB BLOOD ORDERABLES Final Result Performing Organization Address City/[facility]/ZIP Co de Phone Number [facility] [place] [address] * (ABNORMAL) CBC without differential (04/02/2025 1:23 PM DIRECT SUPPORT STAFF) WBC 10.85(H) 3.80 - 9.90 K/cumm Hgb 8.4(L) 13.0 - 17.5 g/dL [facility] Hct 25.4(L) 38.9 - 50.3 % [facility] Plt 174 150 - 400 K/cumm [facility] MPV 10.1 9.1 - 12.3 fL [facility] RBC 2.66(L) 4.30 - 5.80 M/cumm [facility] MCV 95.5 81.3 - 96.4 fL [facility] MCH 31.6 27.1 - 33.3 pg [facility] MCHC 33.1 32.3 - 35.7 g/dL [facility] RDW CV 13.4 11.1 - 14.9 % [facility] RDW SD 47.0 35.7 - 48.1 fL [facility] NRBC abs 0.00 0.00 - 0.01 K/cumm [facility] Blood 04/02/2025 1:23 PM DIRECT SUPPORT STAFF 04/02/2025 1:46 PM DIRECT SUPPORT STAFF us Jennifer Burris MD LAB BLOOD ORDERABLES Final Re sult Performing Organization Address City/[facility]/ZIP Co de Phone Number [facility] Department [place] [address] * (ABNORMAL) Basic metabolic panel (04/02/2025 1:23 PM DIRECT SUPPORT STAFF) Sodium 143 135 - 145 mmol/L Potassium, pl 4.0 3.3 - 4.9 mmol/L [facility] Chloride 99 97 - 110 mmol/L [facility] CO2 35(H) 22 - 32 mmol/L [facility] Anion gap 9 2 - 15 mmol/L [facility] BUN 21 6 - 25 mg/dL [facility] Creatinine 1.02 0.80 - 1.30 mg/dL [facility] Glucose 138 70 - 199 mg/dL [facility] Comment: Interpretive Data Fasting glucose [...] 2022. Calcium 8.9 8.5 - 10.3 mg/dL [facility] Blood 04/02/2025 1:23 PM DIRECT SUPPORT STAFF 04/02/2025 1:46 PM DIRECT SUPPORT STAFF us Lida Borja MD PhD LAB BLOOD ORDERABLES Final Result [facility] Department [place] [address] * XR Chest 1 View (04/02/2025 10:17 AM DIRECT SUPPORT STAFF) Anatomical Region Laterality Modality Body, Chest N/A Digital Radiogra phy 04/02/2025 1:03 PM DIRECT SUPPORT STAFF Impressions 04/02/2025 1:03 PM DIRECT SUPPORT STAFF No prior images available for comparison. Left [...] Armando Martinez M.D. Narrative 04/02/2025 1:03 PM DIRECT SUPPORT STAFF EXAMINATION: 1 view chest radiograph Procedure Note [...] it. Electronically signed by: Armando Martinez M.D. Jennifer Burris MD IMG XR PROCEDURES Final Resul t * (ABNORMAL) CBC without differential (04/02/2025 6:14 AM DIRECT SUPPORT STAFF) WBC 11.27(H) 3.80 - 9.90 K/cumm Hgb 8.4(L) 13.0 - 17.5 g/dL [facility] Hct 25.3(L) 38.9 - 50.3 % [facility] Plt 210 150 - 400 K/cumm [facility] MPV 10.1 9.1 - 12.3 fL [facility] RBC 2.64(L) 4.30 - 5.80 M/cumm [facility] MCV 95.8 81.3 - 96.4 fL [facility] MCH 31.8 27.1 - 33.3 pg [facility] MCHC 33.2 32.3 - 35.7 g/dL [facility] RDW CV 13.3 11.1 - 14.9 % [facility] RDW SD 46.2 35.7 - 48.1 fL [facility] NRBC abs 0.00 0.00 - 0.01 K/cumm [facility] Blood 04/02/2025 6:14 AM DIRECT SUPPORT STAFF 04/02/2025 6:50 AM DIRECT SUPPORT STAFF us Lida Borja MD PhD LAB BLOOD ORDERABLES Final Result Performing Organization Address [facility] de Phone Number [facility] [place] [address] * ECG 12-LEAD (04/02/2025 3:30 AM DIRECT SUPPORT STAFF) Narrative [facility] - 04/02/2025 3:30 AM DIRECT SUPPORT STAFF Aristeo Plunkett Jr., MD 04/02/2025 3:31 AM [...] follow up: further workup in the ED us Bola Harris MD ECG ORDERABLES Final Result Performing Organization Address [facility] Co de Phone Number [facility] * (ABNORMAL) CBC without differential (04/02/2025 3:10 AM DIRECT SUPPORT STAFF) WBC 10.77(H) 3.80 - 9.90 K/cumm Hgb 7.7(L) 13.0 - 17.5 g/dL [facility] Hct 23.1(L) 38.9 - 50.3 % [facility] Plt 192 150 - 400 K/cumm [facility] MPV 10.1 9.1 - 12.3 fL [facility] RBC 2.42(L) 4.30 - 5.80 M/cumm [facility] MCV 95.5 81.3 - 96.4 fL [facility] MCH 31.8 27.1 - 33.3 pg [facility] MCHC 33.3 32.3 - 35.7 g/dL [facility] RDW CV 13.2 11.1 - 14.9 % [facility] RDW SD 45.5 35.7 - 48.1 fL [facility] NRBC abs 0.00 0.00 - 0.01 K/cumm [facility] Blood 04/02/2025 3:10 AM DIRECT SUPPORT STAFF 04/02/2025 3:42 AM DIRECT SUPPORT STAFF Bola Harris MD LAB BLOOD ORDERABLES F inal Result Performing Organization Address [facility] de Phone Number [facility] [place] [employer] [place] [address] * Troponin I high-sensitivity 2-hour (04/02/2025 3:10 AM DIRECT SUPPORT STAFF) Pathologist [facility] Trop I hs 18 <=35 ng/L Comment: Interpretive Data For further [facility] resources including the diagnostic algorithm and an aid in interpretation, copy and paste this link: [email or web address]/[email or web address] Current Interpretive Data last revised 2019. Trop I hs delta 2 ng/L [facility] Trop I hs interp Insignificant [facility] Blood 04/02/2025 3:10 AM DIRECT SUPPORT STAFF 04/02/2025 3:42 AM DIRECT SUPPORT STAFF Bola Harris MD LAB BLOOD ORDERABLES F inal Result Performing Organization Address [facility] de Phone Number [facility] [place] [employer] [place] [address] * (ABNORMAL) Blood gas, venous (04/02/2025 1:34 AM DIRECT SUPPORT STAFF) Pathologist [facility] pH, Venous 7.33 7.32 - 7.43 PCO2, Venous 72(H) 40 - 50 mmHg [facility] PO2, Venous 36 mmHg [facility] Comment: Interpretive Data No Reference Range Established Current Interpretive Data was last revised on 2017. HCO3 Venous, Calculated 37(H) 20 - 30 mmol/L [facility] BE, venous 10 mmol/L [facility] Comment: Interpretive Data No Reference Range Established Current Interpretive Data was last revised on 2017. Blood 04/02/2025 1:34 AM DIRECT SUPPORT STAFF 04/02/2025 1:35 AM DIRECT SUPPORT STAFF us Aristeo Plunkett Jr., MD LAB BLOOD ORDERABLES F inal Result Performing Organization Address [facility] de Phone Number [facility] Department [place] [employer] [place] [address] * Troponin I high-sensitivity series (baseline, 2hr, 4hr, 6hr) (04/02/2025 1:11 AM DIRECT SUPPORT STAFF) Trop I hs 16 <=35 ng/L Comment: Interpretive Data For further [facility] resources including the diagnostic algorithm and an aid in interpretation, copy and paste this link: https://bjhlab.[email or web address]/show/[email or web address] Current Interpretive Data last revised 2019. Blood 04/02/2025 1:11 AM DIRECT SUPPORT STAFF 04/02/2025 1:39 AM DIRECT SUPPORT STAFF us Bola Harris MD LAB BLOOD ORDERABLES F inal Result Performing Organization Address [facility] Co de Phone Number [facility] Department [place] [place] [address] * (ABNORMAL) Pro B-type natriuretic peptide (04/02/2025 1:10 AM DIRECT SUPPORT STAFF) NT-proBNP 902(H) <=450 pg/mL Comment: Interpretive Comments: [...] Revised Date: 2017. Blood 04/02/2025 1:10 AM DIRECT SUPPORT STAFF 04/02/2025 1:42 AM DIRECT SUPPORT STAFF us Aristeo Plunkett Jr., MD LAB BLOOD ORDERABLES F inal Result [facility] Department [place] [address] * Check Sample (04/02/2025 12:57 AM DIRECT SUPPORT STAFF) ABO Rh O Positive [facility] HCLL OTHER 04/02/2025 12:5 7 AM DIRECT SUPPORT STAFF 04/02/2025 1:16 AM DIRECT SUPPORT STAFF us Kevin Resendez MD LAB BLOOD ORDERABLES Final R esult [facility] [place] [address] [facility] * CT Abdomen Pelvis W WO Contrast (04/02/2025 12:37 AM DIRECT SUPPORT STAFF) Anatomical Region Laterality Modality Body N/A Computed Tomogra phy 04/02/2025 2:08 AM DIRECT SUPPORT STAFF Impressions 04/02/2025 8:33 AM DIRECT SUPPORT STAFF 1. Focus of hyperattenuation along the wall [...] Joss Chaney M.D. Narrative 04/02/2025 8:33 AM DIRECT SUPPORT STAFF EXAMINATION: Computed tomography of the abdomen and [...] Result * POCT creatinine (04/01/2025 11:42 PM DIRECT SUPPORT STAFF) Creatinine POC 1.2 0.8 - 1.3 mg/dL Blood 04/01/2025 11:4 2 PM DIRECT SUPPORT STAFF 04/01/2025 11:42 PM DIRECT SUPPORT STAFF Notinfile Unknown LAB POCT ORDERABLES - DEVICE F inal Result [facility] Department [place] [address] * Heparin anti factor Xa activity (04/01/2025 10:51 PM DIRECT SUPPORT STAFF) Anti Factor Xa <0.10 IUnits/mL Comment: Interpretive [...] on 2018. Blood 04/01/2025 10:5 1 PM DIRECT SUPPORT STAFF 04/01/2025 11:02 PM DIRECT SUPPORT STAFF Aristeo Plunkett Jr., MD LAB BLOOD ORDERABLES F inal Result Performing Organization Address City/[facility]/ZIP Co de Phone Number [facility] Department [place] [address] * (ABNORMAL) eGFR (04/01/2025 10:51 PM DIRECT SUPPORT STAFF) Pathologist [facility] eGFR 59(L) >=60 mL/min/1. 73 m2 Comment: [...] reviewed 2021. Blood 04/01/2025 10:5 1 PM DIRECT SUPPORT STAFF 04/01/2025 11:10 PM DIRECT SUPPORT STAFF Bola Harris MD LAB BLOOD ORDERABLES F inal Result Performing Organization Address City/[facility] Co de Phone Number [facility] Department [place] [address] * (ABNORMAL) Differential, auto (04/01/2025 10:51 PM DIRECT SUPPORT STAFF) Pathologist [facility] Neutrophil abs 10.99(H) 1.50 - 6.50 K/cumm Imm gran abs 0.17(H) 0.00 - 0.10 K/cumm [facility] Lymphocyte abs 1.91 0.80 - 3.30 K/cumm [facility] Monocyte abs 0.65 0.20 - 0.80 K/cumm [facility] Eosinophil abs 0.70(H) 0.00 - 0.50 K/cumm [facility] Basophil abs 0.05 0.00 - 0.10 K/cumm [facility] Neutrophil pct 76.0 % [facility] Comment: Interpretive Data Percent cell count reference ranges are not reported, since discordance with absolute values may lead to misinterpretation of CBC data. Current Interpretive Data was last revised on 2017. Imm gran pct 1.2 % [facility] Comment: Interpretive Data Percent cell count reference ranges are not reported, since discordance with absolute values may lead to misinterpretation of CBC data. Current Interpretive Data was last revised on 2017. Lymphocyte pct 13.2 % [facility] Comment: Interpretive Data Percent cell count reference ranges are not reported, since discordance with absolute values may lead to misinterpretation of CBC data. Current Interpretive Data was last revised on 2017. Monocyte pct 4.5 % [facility] Comment: Interpretive Data Percent cell count reference ranges are not reported, since discordance with absolute values may lead to misinterpretation of CBC data. Current Interpretive Data was last revised on 2017. Eosinophil pct 4.8 % [facility] Comment: Interpretive Data Percent cell count reference ranges are not reported, since discordance with absolute values may lead to misinterpretation of CBC data. Current Interpretive Data was last revised on 2017. Basophil pct 0.3 % [facility] Comment: Interpretive Data Percent cell count reference ranges are not reported, since discordance with absolute values may lead to misinterpretation of CBC data. Current Interpretive Data was last revised on 2017. Blood 04/01/2025 10:5 1 PM DIRECT SUPPORT STAFF 04/01/2025 11:10 PM DIRECT SUPPORT STAFF us Bola Harris MD LAB BLOOD ORDERABLES F inal Result [facility] [place] [address] * Type and screen (04/01/2025 10:51 PM DIRECT SUPPORT STAFF) ABO Rh O Positive Todd, indirect Negative [facility] Blood 04/01/2025 10:5 1 PM DIRECT SUPPORT STAFF 04/01/2025 11:22 PM DIRECT SUPPORT STAFF Narrative [facility] - 04/02/2025 12:12 AM DIRECT SUPPORT STAFF Has the patient had Daratumumab or Isatuximab in the past 6 months?->Unknown Bola Harris MD LAB BLOOD BANK TEST OR DERABLES Final Result Performing Organization Address [facility] Co de Phone Number [facility] Department [place] [employer] [place] [address] * aPTT (04/01/2025 10:51 PM DIRECT SUPPORT STAFF) Pathologist [facility] aPTT 28 26 - 38 sec Comment: Interpretive Data Heparin therapeutic range: 66.0 - 100.0 seconds. Range based on correlation with therapeutic heparin activity range of 0.3 - 0.7 Units/mL. Blood 04/01/2025 10:5 1 PM DIRECT SUPPORT STAFF 04/01/2025 11:02 PM DIRECT SUPPORT STAFF Bola Harris MD LAB BLOOD ORDERABLES F inal Result Performing Organization Address [facility] de Phone Number [facility] Department [place] [employer] [place] [address] * Protime-INR (04/01/2025 10:51 PM DIRECT SUPPORT STAFF) PT 11.1 10.2 - 13.5 sec INR 0.98 0.90 - 1.20 [facility] Comment: Interpretive data Oral anticoagulant therapeutic ranges: Venous thromboembolism prophylaxis or treatment: 2.0-3.0 CARDIOLOGY Standard range: 2.0-3.0 High-intensity range: 2.5-3.5 Refer to indication-specific guidelines for appropriate target ranges for prosthetic heart valve replacement. Current interpretive data was last revised on 2019. Blood 04/01/2025 10:5 1 PM DIRECT SUPPORT STAFF 04/01/2025 11:02 PM DIRECT SUPPORT STAFF us Bola Harris MD LAB BLOOD ORDERABLES F inal Result [facility] [place] [address] * (ABNORMAL) Comprehensive metabolic panel (04/01/2025 10:51 PM DIRECT SUPPORT STAFF) Sodium 144 135 - 145 mmol/L Potassium, pl 4.3 3.3 - 4.9 mmol/L [facility] Chloride 101 97 - 110 mmol/L [facility] CO2 34(H) 22 - 32 mmol/L [facility] Anion gap 9 2 - 15 mmol/L [facility] BUN 19 6 - 25 mg/dL [facility] Creatinine 1.21 0.80 - 1.30 mg/dL [facility] Glucose 145 70 - 199 mg/dL [facility] Comment: Interpretive Data Fasting glucose [...] 2022. Calcium 9.0 8.5 - 10.3 mg/dL [facility] Bilirubin, total 1.0 0.1 - 1.2 mg/dL [facility] Protein, pl 6.6 6.5 - 8.5 g/dL [facility] Albumin 4.1 3.5 - 5.0 g/dL [facility] Alk phos 86 40 - 130 Units/L [facility] ALT 17 7 - 55 Units/L [facility] AST 22 10 - 50 Units/L [facility] Blood 04/01/2025 10:5 1 PM DIRECT SUPPORT STAFF 04/01/2025 11:10 PM DIRECT SUPPORT STAFF Bola Harris MD LAB BLOOD ORDERABLES F inal Result Performing Organization Address [facility] Co de Phone Number [facility] [place] [address] * (ABNORMAL) CBC with auto differential (04/01/2025 10:51 PM DIRECT SUPPORT STAFF) WBC 14.47(H) 3.80 - 9.90 K/cumm Hgb 10.1(L) 13.0 - 17.5 g/dL [facility] Hct 30.9(L) 38.9 - 50.3 % [facility] Plt 282 150 - 400 K/cumm [facility] MPV 10.0 9.1 - 12.3 fL [facility] RBC 3.22(L) 4.30 - 5.80 M/cumm [facility] MCV 96.0 81.3 - 96.4 fL [facility] MCH 31.4 27.1 - 33.3 pg [facility] MCHC 32.7 32.3 - 35.7 g/dL [facility] RDW CV 13.1 11.1 - 14.9 % [facility] RDW SD 45.5 35.7 - 48.1 fL [facility] NRBC abs 0.00 0.00 - 0.01 K/cumm [facility] Blood 04/01/2025 10:5 1 PM DIRECT SUPPORT STAFF 04/01/2025 11:10 PM DIRECT SUPPORT STAFF Bola Harris MD LAB BLOOD ORDERABLES F inal Result [facility] [place] [address] documented in this encounter Visit Diagnoses Diagnosis [...] stool documented in this encounter Administered Medications Active Administered Medications - up to 3 most recent administrations Medication Order MAR Action Action Date Dose Rate Site acetaminophen (TYLENOL) tablet 1,000 mg 1,000 mg, oral, Every 6 hours PRN, 1st line for pain, fever, fever greater than 38.3 C, Starting on 04/03/25 at 1305, Indications: Fever, PainIndications:Fever,Pain ALPRAZolam (XANAX) tablet 0.25 mg 0.25 mg, oral, 2 times daily PRN, anxiety, Starting on 04/03/25 at 0845 Given 04/06/2025 5:29 PM DIRECT SUPPORT STAFF 0.25 mg Given 04/05/2025 4:08 PM DIRECT SUPPORT STAFF 0.25 mg Given 04/05/2025 9:01 AM DIRECT SUPPORT STAFF 0.25 mg aspirin enteric coated tablet 81 mg 81 mg, oral, Daily, First dose on 04/03/25 at 0900, Do not crush, chew, cut, dissolve, open or otherwise manipulate tablet/capsule. Given 04/06/2025 8:59 AM DIRECT SUPPORT STAFF 81 mg Given 04/05/2025 9:03 AM DIRECT SUPPORT STAFF 81 mg Given 2025 8:42 AM DIRECT SUPPORT STAFF 81 mg atorvastatin (LIPITOR) tablet 40 mg 40 mg, oral, Nightly, First dose on 04/02/25 at 2100 Given 04/06/2025 7:55 PM DIRECT SUPPORT STAFF 40 mg Given 04/05/2025 8:00 PM DIRECT SUPPORT STAFF 40 mg Given 2025 8:32 PM DIRECT SUPPORT STAFF 40 mg budesonide (PULMICORT) 0.5 mg/2 mL nebulizer solution 0.5 mg 0.5 mg, nebulization, 2 times daily (cyber incident responder), First dose on 04/02/25 at 0945, I /authorizing provider attest that the patient meets the approved [facility] Use Criteria: Yes Given 04/06/2025 9:05 PM DIRECT SUPPORT STAFF 0.5 mg Given 04/06/2025 7:26 AM DIRECT SUPPORT STAFF 0.5 mg Given 04/05/2025 9:18 PM DIRECT SUPPORT STAFF 0.5 mg finasteride (PROSCAR) tablet 5 mg 5 mg, oral, Daily, First dose on 04/02/25 at 0900, Do not crush, break, or open. Given 04/06/2025 8:59 AM DIRECT SUPPORT STAFF 5 mg Given 04/05/2025 9:02 AM DIRECT SUPPORT STAFF 5 mg Given 2025 8:42 AM DIRECT SUPPORT STAFF 5 mg furosemide (LASIX) tablet 40 mg 40 mg, oral, 2 times daily (for diuretics), First dose (after last modification) on 04/03/25 at 1600, Hold for SBP < 110 Given 04/06/2025 3:24 PM DIRECT SUPPORT STAFF 40 mg Given 04/06/2025 9:00 AM DIRECT SUPPORT STAFF 40 mg Given 04/05/2025 4:08 PM DIRECT SUPPORT STAFF 40 mg ipratropium-albuteroL (DUO-NEB) 0.5-2.5 mg/3 mL nebulizer solution 3 mL 3 mL, nebulization, Every 4 hours PRN (cyber incident responder), wheezing, shortness of breath, Starting on 04/02/25 at 0609 Given 04/06/2025 11:17 AM DIRECT SUPPORT STAFF 3 mL ipratropium-albuteroL (DUO-NEB) 0.5-2.5 mg/3 mL nebulizer solution 3 mL 3 mL, nebulization, Every 6 hours while awake (cyber incident responder), First dose on 04/02/25 at 0900, Indications: disorder of respiratory systemIndications:disorder of respiratory system Given 04/06/2025 9:05 PM DIRECT SUPPORT STAFF 3 mL Given 04/06/2025 2:43 PM DIRECT SUPPORT STAFF 3 mL Given 04/06/2025 7:26 AM DIRECT SUPPORT STAFF 3 mL lidocaine (GLYDO) 2 % jelly 100 mg 100 mg (5 mL), urethral, 2 times daily, First dose on Fri04/06/25 at 1115 Given 04/06/2025 3:25 PM DIRECT SUPPORT STAFF 100 mg morphine 2 mg/mL oral solution 5 mg 5 mg, oral, Every 4 hours PRN, other, Dyspnea, Starting on 04/03/25 at 1305 Given 04/06/2025 7:59 PM DIRECT SUPPORT STAFF 5 mg Given 04/06/2025 1:07 PM DIRECT SUPPORT STAFF 5 mg Given 04/06/2025 2:14 AM DIRECT SUPPORT STAFF 5 mg ondansetron (ZOFRAN) injection 4 mg 4 mg, intravenous, Administer over 2 Minutes, Every 6 hours PRN, nausea, vomiting, Starting on 04/04/[address] (PROTONIX) extended release tablet 40 mg 40 mg, oral, 2 times daily, First dose on Fri04/06/25 at 1400, Do not crush, chew, cut, dissolve, open or otherwise manipulate tablet/capsule., Indications: GI BleedIndications:GI Bleed Given 04/06/2025 7:55 PM DIRECT SUPPORT STAFF 40 mg Given 04/06/2025 3:24 PM DIRECT SUPPORT STAFF 40 mg polyethylene glycol (MIRALAX) packet 17 g 17 g, oral, Daily PRN, constipation, Starting on 04/02/25 at 0509, Indications: constipationIndications:constipation Given 04/06/2025 5:30 PM DIRECT SUPPORT STAFF 17 g ramelteon (ROZEREM) tablet 8 mg 8 mg, oral, Nightly PRN, sleep, Starting on 04/02/25 at 0509, Indications: Sleep-Onset InsomniaIndications:Sleep-Onset Insomnia Given 04/05/2025 8:00 PM DIRECT SUPPORT STAFF 8 m g Given 04/03/2025 8:09 PM DIRECT SUPPORT STAFF 8 mg sertraline (ZOLOFT) tablet 50 mg 50 mg, oral, 2 times daily, First dose on 04/02/25 at 0900 Given 04/06/2025 8:59 AM DIRECT SUPPORT STAFF 50 mg Given 04/05/2025 8:00 PM DIRECT SUPPORT STAFF 50 mg Given 04/05/2025 9:02 AM DIRECT SUPPORT STAFF 50 mg tamsulosin (FLOMAX) extended release capsule 0.4 mg 0.4 mg, oral, Daily with dinner, First dose on 04/02/25 at 1800, Do not crush, chew, cut, dissolve, open or otherwise manipulate tablet/capsule. Given 04/06/2025 6:23 PM DIRECT SUPPORT STAFF 0.4 mg Given 04/05/2025 5:39 PM DIRECT SUPPORT STAFF 0.4 mg Given 2025 5:49 PM DIRECT SUPPORT STAFF 0.4 mg Inactive Administered Medications - up to 3 most recent administrations Medication Order MAR Action Action Date Dose Rate Site albuterol 2.5 mg/0.5 mL nebulizer solution 10 mg 10 mg, nebulization, Once (cyber incident responder), On Fri04/01/25 at 2230, For 1 dose, Indications: COPD ExacerbationIndications:DISPATCHER TOW TRUCK D Exacerbation Given 04/01/2025 10:32 PM DIRECT SUPPORT STAFF 10 mg ferric gluconate (FERRLECIT) 125 mg of elemental iron in sodium chloride 0.9% 100 mL IVPB 125 mg of elemental iron, intravenous, at 120 mL/hr, Administer over 60 Minutes, Daily, First dose on Fri04/04/25 at 2000, For 3 doses Rate/Dose Verify 04/06/2025 7:31 PM DIRECT SUPPORT STAFF 120 mL/hr New Bag 04/06/2025 6:37 PM DIRECT SUPPORT STAFF 125 mg of elemental iron 120 mL/hr Restarted (From Pump) 04/05/2025 6:48 PM DIRECT SUPPORT STAFF 12 0 mL/hr ioversoL (OPTIRAY 350) syringe 100 mL 100 mL, intravenous, Once in imaging, contrast, Starting on 04/02/25 at 0016, For 1 dose Contrast Given 04/02/2025 12:18 AM DIRECT SUPPORT STAFF 94 mL ipratropium (ATROVENT) 0.02 % nebulizer solution 0.5 mg 0.5 mg, nebulization, Once (cyber incident responder), On Fri04/01/25 at 2230, For 1 dose, Indications: COPD ExacerbationIndications:COPD Exacerbation Given 04/01/2025 10:32 PM DIRECT SUPPORT STAFF 0.5 mg morphine 2 mg/mL oral solution 5 mg 5 mg, oral, Once, On Fri04/03/25 at 0945, For 1 dose Given 04/03/2025 10:20 AM DIRECT SUPPORT STAFF 5 mg pantoprazole (PROTONIX) 40 mg in sodium chloride 0.9% 10 mL IV Syringe 40 mg, intravenous, at 300 mL/hr, Administer over 2 Minutes, 2 times daily, First dose on Fri04/01/25 at 2245, For IV administration, reconstitute 40 mg vial with 10 mL sodium chloride 0.9% for injection for a final concentration of 4 mg/mL, Indications: GI BleedIndications:GI Bleed Given 04/06/2025 8:59 AM DIRECT SUPPORT STAFF 40 mg 300 mL/hr Given 04/05/2025 8:00 PM DIRECT SUPPORT STAFF 40 mg 300 mL/hr Given 04/05/2025 9:03 AM DIRECT SUPPORT STAFF 40 mg 300 mL/hr potassium chloride ER (KLOR-CON) extended release tablet 40 mEq 40 mEq, oral, Once, On Fri04/06/25 at 0330, For 1 dose, Tablets should not be crushed, chewed, dissolved, or otherwise manipulated. Capsules may be opened and sprinkled on a spoonful of applesauce or pudding, but the contents of the capsule should not be crushed or chewed. Given 04/06/2025 4:03 AM DIRECT SUPPORT STAFF 40 mEq documented in this encounter Discontinued Medications Medication [...] by mouth 2 (two) times a day 5 added in this encounter Active and Recently Administered Medications Times are shown in DIRECT SUPPORT STAFF. Scheduled Medication Order 2025 04/05/2025 04/06/2025 aspirin enteric coated tablet 81 mg 81 mg, oral, Daily, First dose on 04/03/25 at 0900, Do not crush, chew, cut, dissolve, open or otherwise manipulate tablet/capsule. 0842 (Given - Provider: Yuliet Adamson RN) 0903 (Given - Provider: Yuliet Adamson RN) 0859 (Given - Provider: Karrie Hackett RN) atorvastatin (LIPITOR) tablet 40 mg 40 mg, oral, Nightly, First dose on 04/02/25 at 2100 2031 (Given - Provider: Audrey Sousa, GREGORY) 1999 (Given - Provider: Charmaine Lyman RN) 1954 (Given - Provider: Marie Oleary) budesonide (PULMICORT) 0.5 mg/2 mL nebulizer solution 0.5 mg 0.5 mg, nebulization, 2 times daily (cyber incident responder), First dose on 04/02/25 at 0945, I /authorizing provider attest that the patient meets the approved [facility] Use Criteria: Yes 855 (Given - Provider: Senia Pro, JO)2111 (Given - Provider: Joss Campbell RRT) 818 (Not Given - Provider: Shania Yusuf, JO - Reason: Medication not available - Comment: message sent to pharmacy)1716 (Given - Provider: Shania Yusuf, JO)2117 (Given - Provider: Alexx Rose, JO) 725 (Given - Provider: Laura Joiner, JO)2104 (Given - Provider: Krys Bullock RRT) ferric gluconate (FERRLECIT) 125 mg of elemental iron in sodium chloride 0.9% 100 mL IVPB (COMPLETED) 125 mg of elemental iron, intravenous, at 120 mL/hr, Administer over 60 Minutes, Daily, First dose on 04/04/25 at 2000, For 3 doses 2126 (New Bag - Provider: Audrey Sousa RN)2220 (Stopped - Provider: Audrey Sousa RN) 1744 (New Bag - Provider: Yuliet Adamson RN)1750 (Paused - Provider: Karrie Hackett RN)1848 (Paused - Provider: Karrie Hackett RN)184 (Restarted (From Pump) - Provider: Karrie Hackett [...] Adamson RN) 0859 (Given - Provider: Karrie Hackett RN) furosemide (LASIX) tablet 40 mg 40 mg, oral, 2 times daily (for diuretics), First dose (after last modification) on Fri04/03/25 at 1600, Hold for SBP < 110 0842 (Given - Provider: Yuliet Adamson RN)1749 (Given - Provider: Yuliet Adamson RN) 0902 (Given - Provider: Yuliet Adamson RN)1608 (Given - Provider: Yuliet Adamson RN) 0900 (Given - Provider: Karrie Hackett RN)1524 (Given - Provider: Karrie Hackett RN) ipratropium-albuteroL (DUO-NEB) 0.5-2.5 mg/3 mL nebulizer solution 3 mL 3 mL, nebulization, Every 6 hours while awake (cyber incident responder), First dose on 04/02/25 at 0900, Indications: disorder of respiratory system 0855 (Given - Provider: Senia Pro, LEATHER WHITENER)1527 (Given - Provider: Senia Pro, LEATHER WHITENER)2112 (Given - Provider: Joss Campbell, LEATHER WHITENER) 0819 (Given - Provider: Shania Yusuf, LEATHER WHITENER)1717 (Given - Provider: Shania Yusuf, LEATHER WHITENER)2118 (Given - Provider: Alexx Rose, JO) 0726 (Given - Provider: Luara Joiner, LEATHER WHITENER - Comment: Patient requested early)1443 (Given - Provider: Laura Joiner, LEATHER WHITENER)210 (Given - Provider: Krys Bullock, JO) lidocaine [...] RN)2030 (Given - Provider: Audrey Sousa RN) 0903 (Given - Provider: Yuliet Adamson RN)1999 (Given [...] daily, First dose on 04/02/25 at 0900 0842 (Given - Provider: Yuliet Adamson RN)2031 (Given - Provider: Audrey Sousa RN) 0902 (Given - Provider: Yuliet Adamson RN)1999 (Given [...] Yuliet Adamson RN) 1729 (Given - Provider: Krarie Hackett RN) ipratropium-albuteroL (DUO-NEB) 0.5-2.5 mg/3 mL nebulizer solution 3 mL 3 mL, nebulization, Every 4 hours PRN (cyber incident responder), wheezing, shortness of breath, Starting on 04/02/25 at 0609 1117 (Given - Provider: Laura Joiner, LEATHER WHITENER) morphine 2 mg/mL oral solution 5 mg 5 mg, oral, Every 4 hours PRN, other, Dyspnea, Starting on 04/03/25 at 1305 0841 (Given - Provider: Yuliet Adamson, GREGORY)1431 (Given - Provider: Yuliet Adamson, GREGORY) 0343 (Given - Provider: Audrey Sousa RN)0901 (Given - Provider: Yuliet Adamson RN)1608 (Given - Provider: Yuliet Adamson RN) 0214 (Given - Provider: Charmaine Lyman RN)1307 (Given - Provider: Karrie Hackett, GREGORY)1959 (Given - Provider: Marie Oleary) ondansetron (ZOFRAN) [...] red Date ADULT DISCHARGE DIET 1 04/06/2025 ADULT DIET 1 2025 Nursing Count Last Ordered Date First Orde red Date DISCHARGE ACTIVITY 1 04/06/2025 DISCHARGE CALL PROVIDER 2 04/06/2025 DISCHARGE INSTRUCTIONS 1 04/06/2025 INSERT MALONE CATHETER 1 04/06/2025 NOTIFY PROVIDER (SPECIFY) 1 04/05/2025 STRAIGHT CATH 2 04/05/2025 NURSING COMMUNICATION 1 04/02/[address] PLACE SEQUENTIAL COMPRESSION DEVICE 1 04/02 STRICT INTAKE AND OUTPUT 1 04/02/2025 VITAL SIGNS 2 04/02/2025 WEIGH PATIENT 1 04/02/2025 Code Status Count Last Ordered Date First Orde red Date LIMITED CODE 1 04/02/2025 Consult Count Last Ordered Date First Orde red Date IP CONSULT TO GASTROENTEROLOGY 1 04/02/2025 IP CONSULT TO NUTRITION SERVICES 1 04/02/20 25 Nourishments Count Last Ordered Date First Orde red Date ORAL NUTRITION SUPPLEMENTS 1 04/03/2025 OT Count Last Ordered Date First Orde red Date OT EVALUATE AND TREAT 1 04/02/2025 PT Count Last Ordered Date First Orde red Date PT EVALUATE AND TREAT 1 04/02/2025 IV Count Last Ordered Date First Orde red Date DISCONTINUE IV 1 04/06/2025 Admission Count Last Ordered Date First Orde red Date ADMIT TO INPATIENT 1 04/02/2025 Transfer Count Last Ordered Date First Orde red Date TRANSFER PATIENT TO NEW UNIT 1 04/02/2025 Discharge Count Last Ordered Date First Orde red Date DISCHARGE PATIENT 1 04/06/2025 Precaution Count Last Ordered Date First Orde red Date FALL PRECAUTIONS 1 04/02/2025 CHRISTINE PRECAUTIONS 1 04/02/2025 CORE MEASURES Count Last Ordered Date First Ord ered Date REASON FOR NO VTE PROPHYLAXI S - HOSPITAL ADMISSION - MEDICATIONS 1 04/02/2025 documented in this encounter Additional Health Concerns Infection Onset Date Last Indicated Resolved Time C. difficile suspected 04/02/2025 04/02/202504/05 2:03 PM DIRECT SUPPORT STAFF documented as of this encounter Care Teams Trial Mgr Relationship Specialty Start Date End Date Jayjay Fernandes MD [address] [place] [address] PCP - General Family Medicine 04/01/25 documented as of this encounter
--- NOTE | 2025-04-06 23:50 | ADMGEN ---
This patient, Chip Emery, was admitted to 2nd Floor Room 204-1. Patient oriented to hospital policies and general routines including ID bracelet, bed and alarms, visiting hours, pain management, procedures, bathroom and other care routines, personal items, smoking policy, room service/diet, and visiting hours. Information on how to activate the Rapid Response Team has been discussed. Patient are encouraged to report perceived risks to care and to ask questions if they do not understand what they are told or what they should do.
[2025-04-07] VITALS (12 sets, daily range): BP systolic 116–126; BP diastolic 63–68; PULSE 76–102; RESP 16–22; TEMP 36.6–37.2; O2SAT 91–100; BMI 19.5
--- OUTSIDE RECORDS SUMMARY | 2025-04-07 00:41 | XMS_ITS | Clinical Summary ---
Author Organization [facility] Address [address] [place] [address] Phone Care Team Providers Care Drainage Engineer Name Role Phone Percy Michaels MD Primary Care Provider Social History Tobacco Use Types Packs/Day Years [...] complete this topic Insurance MEDICARE Care Teams Drainage Engineer Relationship Specialty Start Date End Date Percy Michaels MD [address] [place] [id number] PCP - General Endocrinology 11/24/19
--- OUTSIDE RECORDS SUMMARY | 2025-04-07 00:41 | XMS_ITS | Encounter Summary ---
Author Organization [facility] Address [address] [place] [address] Care Team Providers Care Ambulatory Nurse Name Role Phone Jamie Grande MD Unavailable [phone] Jayjay Fernandes MD Primary Care Provider [phone] Avinash Monroe MD Unavailable [phone] Samia Bautista PA-C Unavailable [phone] Luis Alberto Spears MD Unavailable [phone] Encounter Details Date Type Department Care Team (Late st Contact Info) Description 08/09/2015 Abstract [facility] AT [address] [place] [phone] Jamie Grande MD [address] [place] [address] Social History Tobacco Use Types Packs/Day Years Used Date Smoking Tobacco: Every Day Cigarettes 0.5 63 Comments:Current smoker, 1/2 PPD for 63 years Alcohol Use Standard Drinks/Week Comments Yes 0 (1 standard drink = 0.6 oz pur e alcohol) Wine 3-4 daily, vodka, gin. Sex and Gender Information Value Date Recorded Sex Assigned at Male 06/25/2024 7:37 PM FISCAL SERVICES MANAGER Legal Sex Male 11:27 PM CDT Gender Identity Not on file Sexual Orientation Not on file documented as of this encounter Plan of Treatment Upcoming Encounters Date Type Department Care Team (Late st Contact Info) Description 05/13/2025 1:45 AM FISCAL SERVICES MANAGER Allied Health/Nurse Visit [facility] [address] [place] [address] Jamie Grande MD [address] [place] [phone] 10/26/2025 10:45 AM CDT Office Visit [facility] [address] [place] [phone] Luis Alberto Spears MD [address] [place], [place] [phone] 10/26/2025 10:45 AM CDT Allied Health/Nurse Visit [facility] [address] [place] [address] Luis Alberto Spears MD [address] [place] [address] documented as of this encounter Visit Diagnoses Not on filedocumented in this encounter Care Teams Ambulatory Nurse Relationship Specialty Start Date End Date Jayjay Fernandes MD [address] [place] [phone] PCP - General FAMILY PRACTICE 04/03/17 Jamie Grande MD [address] [place] [phone] CARDIOVASCULAR DISEASE 03/13/16 Avinash Monroe MD [address] [place] [address] [facility] [employer] CARDIOVASCULAR DISEASE 04/07/19 09/14/24 Samia Bautista PA-C [address] [place] [id number] Referring Physician PHYSICIAN ENERGY BROKER 09/15/24 Luis Alberto Spears MD [address] [place] [address] Consulting Physician CLINICAL CARDIAC ELECTROPHYSIOLOGY 09/15/24 documented as of this encounter
--- OUTSIDE RECORDS SUMMARY | 2025-04-07 00:41 | XMS_ITS | Clinical Summary ---
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 Gender Identity Not on file Sexual Orientation Not on file Last Filed Vital Signs Vital Sign Reading Time Taken Comments Blood Pressure 113/45 07/07/2024 6:10 AM LEATHER PRODUCTION MACHINE OPERATOR Pulse 72 07/07/2024 8:23 AM LEATHER PRODUCTION MACHINE OPERATOR Temperature 37.1 C (98.7 F) 07/07/2024 4:57 AM LEATHER PRODUCTION MACHINE OPERATOR Respiratory Rate 18 07/07/2024 8:23 AM LEATHER PRODUCTION MACHINE OPERATOR Oxygen Saturation 98% 07/07/2024 8:23 AM LEATHER PRODUCTION MACHINE OPERATOR Inhaled Oxygen Concentration - - Weight 69.1 kg (152 lb 4.8 oz) 06/26/2024 2:09 A M LEATHER PRODUCTION MACHINE OPERATOR Height 180.3 cm (5' 11) 06/26/2024 2:09 AM LEATHER PRODUCTION MACHINE OPERATOR Body Mass Index 21.24 06/26/2024 2:09 AM LEATHER PRODUCTION MACHINE OPERATOR Plan of Treatment Health Maintenance Due Date [...] exists Insurance MEDICARE PART A AND B [employer] [place] [employer] (INTERNAL) [facility] Advance Directives For more information, please contact: [phone] * NO CPR (In Event of Cardiopulmonary Arrest) (Latest Code Status on File) Date Activated Date Inactivated Comments 06/26/2024 2:37 AM 07/07/2024 2:53 PM Question Answer Comments Mechanical Ventilation (for respiratory distress) - Invasive (i.e. intubation): No Mechanical Ventilation (for respiratory distress) - Non-Invasive (i.e. BiPAP, CPAP): Yes
--- OUTSIDE RECORDS SUMMARY | 2025-04-07 00:41 | XMS_ITS | Clinical Summary ---
Author Organization [facility] Address [address] [place] [address] Care Team Providers Care Naval Architect Name Role Phone Jayjay Fernandes MD Primary Care Provider [phone] Allergies No known active allergies Medications ALPRAZolam (XANAX) 0.25 mg tablet Take 1 tablet (0.25 mg total) by mouth nightly as needed for anxiety 5 Active atorvastatin (LIPITOR) 40 mg tablet Take 1 tablet (40 mg total) by mouth nightly 6 Active budesonide (PULMICORT) 0.25 mg/2 mL nebulizer solution 1 Active carvediloL (COREG) 3.125 mg tablet Take 1 tablet (3.125 mg total) by mouth 2 (two) times a day 0 Active furosemide (LASIX) 40 mg tablet Take 1 tablet (40 mg total) by mouth 2 (two) times a day 4 Active ipratropium-al buteroL (DUO-NEB) 0.5-2.5 mg/3 mL nebulizer solution INHALE 3 ML 4 TIMES A DAY BY NEBULIZATION ROUTE NEEDED FOR 10 DAYS. 5 Active sertraline (ZOLOFT) 50 mg tablet Take 1 tablet (50 mg total) by mouth 2 (two) times a day 0 Active tamsulosin (FLOMAX) 0.4 mg extended release capsule Take 2 tablets by mouth daily 6 Active finasteride (PROSCAR) 5 mg tablet Take 1 tablet (5 mg total) by mouth daily Active acetaminophen 500 mg capsuleIndicat ions:Fever,Peter n Take 2 capsules (1,000 mg total) by mouth every 6 (six) hours as needed for pain, headaches or fever 5 Active aspirin 81 mg enteric coated tablet Take 1 tablet (81 mg total) by mouth daily 5 026 Active lidocaine (GLYDO) 2 % jelly in applicator Insert 5 mL (100 mg total) into the urethra 2 (two) times a day [address] (PROTONIX) 40 mg EC tabletIndicati ons:GI Bleed Take 1 tablet (40 mg total) by mouth daily 5 Active polyethylene glycol (MIRALAX) 17 gram packetIndicati ons:constipati on Take 1 packet (17 g total) by mouth daily as needed for constipation 5 Active morphine solution 10 mg/5 mL Take 2.5 mL (5 mg total) by mouth every 4 (four) hours as needed (dyspnea) 5 Active famotidine (PEPCID) 20 mg tablet Take 1 tablet (20 mg total) by mouth 2 (two) times a day 025 Discontin ued(Stop Taking at Discharge ) potassium chloride ER 20 mEq CR tablet 5 025 Discontin ued(Stop Taking at Discharge ) Active Problems Problem Noted Date Diagnosed Date Urinary retention 04/05/2025 Assessment & Plan (04/06/2025 10:50 AM PSYCHIATRY ADULT PHYSICIAN): - Cont home finasteride and flomax. - New urinary retention on 04/05, with discomfort. Bladder scan 600+. Persistent retention after straight cath - Malone placed last night - Will likely need repeat void trial at rehab Assessment & Plan (04/05/2025 3:48 PM PSYCHIATRY ADULT PHYSICIAN): - Cont home finasteride and flomax. - New urinary retention on 04/05, with discomfort. Bladder scan 600+ - Bladder scan/ Straight cath q4 PRN Lower GI bleed 04/03/2025 Assessment & Plan (04/06/2025 10:50 AM PSYCHIATRY ADULT PHYSICIAN): Patient presented with recurrent painless hematochezia. Has had this issue since almost 2019. Last eval was with sigmoidoscopy in Jun this year but prep was sub optimal however no active bleeding was seen. Was also recently admitted at OSH (no [...] - If bleeding recurs, obtain stat CTA Assessment & Plan (04/05/2025 3:48 PM PSYCHIATRY ADULT PHYSICIAN): Patient presented with recurrent painless hematochezia. Has had this issue since almost 2018. Last eval was with sigmoidoscopy in Jun this year but prep was sub optimal however no active bleeding was seen. Was also recently admitted at OSH (no [...] recent abx exposure for COPD ex treatment) - PPI BID - CBC BID, hgb remains stable thus far in the 7-8 range - Transfuse for Hgb < 7 - If bleeding recurs, obtain stat CTA Assessment & Plan (2025 12:16 PM PSYCHIATRY ADULT PHYSICIAN): Patient presented with recurrent painless hematochezia. Has had this issue since almost 2018. Last eval was with sigmoidoscopy in jun this year but prep was sub optimal however no active bleeding was seen. Was also recently admitted at OSH (no [...] range -If bleeding recurs, obtain stat CTA Assessment & Plan (04/03/2025 12:17 PM PSYCHIATRY ADULT PHYSICIAN): Patient presented with recurrent painless hematochezia. Has had this issue since almost 2018. Last eval was with sigmoidoscopy in jun this year but prep was sub optimal however no active bleeding was seen. Was also recently admitted at OSH (no [...] hgb -If bleeding recurs, obtain stat CTA History of diverticulosis 04/03/2025 Assessment & Plan (04/06/2025 10:50 AM PSYCHIATRY ADULT PHYSICIAN): Patient presented with recurrent painless hematochezia. Has had this issue since almost 2018. Last eval was with sigmoidoscopy in Jun this year but prep was sub optimal however no active bleeding was seen. Was also recently admitted at OSH (no [...] - If bleeding recurs, obtain stat CTA Assessment & Plan (04/05/2025 3:48 PM PSYCHIATRY ADULT PHYSICIAN): Patient presented with recurrent painless hematochezia. Has had this issue since almost 2018. Last eval was with sigmoidoscopy in Jun this year but prep was sub optimal however no active bleeding was seen. Was also recently admitted at OSH (no [...] recent abx exposure for COPD ex treatment) - PPI BID - CBC BID, hgb remains stable thus far in the 7-8 range - Transfuse for Hgb < 7 - If bleeding recurs, obtain stat CTA Assessment & Plan (2025 12:16 PM PSYCHIATRY ADULT PHYSICIAN): Patient presented with recurrent painless hematochezia. Has had this issue since almost 2018. Last eval was with sigmoidoscopy in jun this year but prep was sub optimal however no active bleeding was seen. Was also recently admitted at OSH (no [...] consulted. Recent Labs Lab Units 04/04/25 0949 04/03/252 04/03/25 0401 04/02/25 1930 04/02/25 1323 HEMOGLOBIN [...] range -If bleeding recurs, obtain stat CTA Assessment & Plan (04/03/2025 12:17 PM PSYCHIATRY ADULT PHYSICIAN): Patient presented with recurrent painless hematochezia. Has had this issue since almost 2018. Last eval was with sigmoidoscopy in jun this year but prep was sub optimal however no active bleeding was seen. Was also recently admitted at OSH (no [...] hgb -If bleeding recurs, obtain stat CTA History of ventricular tachycardia 04/03/2025 Assessment & Plan (04/06/2025 10:50 AM PSYCHIATRY ADULT PHYSICIAN): - S/p CABG and ICD. Cont home asa and statin. Assessment & Plan (04/05/2025 3:48 PM PSYCHIATRY ADULT PHYSICIAN): - S/p CABG and ICD. Cont home asa and statin. Assessment & Plan (2025 12:16 PM PSYCHIATRY ADULT PHYSICIAN): S/p CABG and ICD. Cont home asa and statin Assessment & Plan (04/03/2025 12:17 PM PSYCHIATRY ADULT PHYSICIAN): S/p CABG and ICD. Cont home asa and statin History of COPD 04/03/2025 Assessment & Plan (04/06/2025 10:50 AM PSYCHIATRY ADULT PHYSICIAN): On 3 L O2 at baseline. No PFTs in chart. No signs of acute exacerbation but he has chronic dyspnea. On Pulmicort and albuterol at home. CXR with [...] tried it before and did not tolerate - Started on roxanol which helped significantly in his dyspnea, he reported feeling like a new person. We discussed risk and benefit if continuing it as a PRN and I counseled on side effects including sedation, constipation, risk of dependence. He would benefit from palliative care referral on discharge. Assessment & Plan (04/05/2025 3:48 PM PSYCHIATRY ADULT PHYSICIAN): On 3 L O2 at baseline. No PFTs in chart. No signs of acute exacerbation but he has chronic dyspnea. On Pulmicort and albuterol at home. CXR with [...] tried it before and did not tolerate - Started on roxanol which helped significantly in his dyspnea, he reported feeling like a new person. We discussed risk and benefit if continuing it as a PRN and I counseled on side effects including sedation, constipation, risk of dependence. He would benefit from palliative care referral on discharge. Assessment & Plan (2025 12:16 PM PSYCHIATRY ADULT PHYSICIAN): On 3 L o2 at baseline. No PFTs in chart. No signs of acute exacerbation but he has chronic dyspnea. On Pulmicort and albuterol at home. CXR with [...] benefit from palliative care referral on discharge. Assessment & Plan (04/03/2025 12:17 PM PSYCHIATRY ADULT PHYSICIAN): On 3 L o2 at baseline. No PFTs in chart. No signs of acute exacerbation but he has chronic dyspnea. On Pulmicort and albuterol at home. CXR with hyperinflated lungs from emphysema. Suspect his COPD signifcant advance given thin body habitus and pursed lip breathing technique Plan: -Start duonebz ATC and PRN -Resume home pulmicort -Resuming home diuretic -Discussed qualification for BiPAP but he stated he declined as he had tried it before and did not tolerate -Trial roxanol to help alleviate dyspnea History of BPH 04/03/2025 Assessment & Plan (04/06/2025 10:50 AM PSYCHIATRY ADULT PHYSICIAN): - Cont home finasteride and flomax. - New urinary retention on 04/05, with discomfort. Bladder scan 600+. Persistent retention after straight cath - Malone placed last night - Will likely need repeat void trial at rehab Assessment & Plan (04/05/2025 3:48 PM PSYCHIATRY ADULT PHYSICIAN): - Cont home finasteride and flomax. - New urinary retention on 04/05, with discomfort. Bladder scan 600+ - Bladder scan/ Straight cath q4 PRN Assessment & Plan (2025 12:16 PM PSYCHIATRY ADULT PHYSICIAN): Cont home finasteride and flomax Assessment & Plan (04/03/2025 12:17 PM PSYCHIATRY ADULT PHYSICIAN): Cont home finasteride and flomax Chronic dyspnea, improved 04/03/2025 Assessment & Plan (04/06/2025 10:50 AM PSYCHIATRY ADULT PHYSICIAN): On 3 L O2 at baseline. No PFTs in chart. No signs of acute exacerbation but he has chronic dyspnea. On Pulmicort and albuterol at home. CXR with [...] tried it before and did not tolerate - Started on roxanol which helped significantly in his dyspnea, he reported feeling like a new person. We discussed risk and benefit if continuing it as a PRN and I counseled on side effects including sedation, constipation, risk of dependence. He would benefit from palliative care referral on discharge. Assessment & Plan (04/05/2025 3:48 PM PSYCHIATRY ADULT PHYSICIAN): On 3 L O2 at baseline. No PFTs in chart. No signs of acute exacerbation but he has chronic dyspnea. On Pulmicort and albuterol at home. CXR with [...] tried it before and did not tolerate - Started on roxanol which helped significantly in his dyspnea, he reported feeling like a new person. We discussed risk and benefit if continuing it as a PRN and I counseled on side effects including sedation, constipation, risk of dependence. He would benefit from palliative care referral on discharge. Assessment & Plan (2025 12:16 PM PSYCHIATRY ADULT PHYSICIAN): On 3 L o2 at baseline. No PFTs in chart. No signs of acute exacerbation but he has chronic dyspnea. On Pulmicort and albuterol at home. CXR with [...] benefit from palliative care referral on discharge. Assessment & Plan (04/03/2025 12:17 PM PSYCHIATRY ADULT PHYSICIAN): On 3 L o2 at baseline. No PFTs in chart. No signs of acute exacerbation but he has chronic dyspnea. On Pulmicort and albuterol at home. CXR with hyperinflated lungs from emphysema. Suspect his COPD signifcant advance given thin body habitus and pursed lip breathing technique Plan: -Start duonebz ATC and PRN -Resume home pulmicort -Resuming home diuretic -Discussed qualification for BiPAP but he stated he declined as he had tried it before and did not tolerate -Trial roxanol to help alleviate dyspnea ABLA (acute blood loss anemia) 04/02/2025 Assessment & Plan (04/06/2025 10:50 AM PSYCHIATRY ADULT PHYSICIAN): Patient presented with recurrent painless hematochezia. Has had this issue since almost 2018. Last eval was with sigmoidoscopy in Jun this year but prep was sub optimal however no active bleeding was seen. Was also recently admitted at OSH (no [...] - If bleeding recurs, obtain stat CTA Assessment & Plan (04/05/2025 3:48 PM PSYCHIATRY ADULT PHYSICIAN): Patient presented with recurrent painless hematochezia. Has had this issue since almost 2018. Last eval was with sigmoidoscopy in Jun this year but prep was sub optimal however no active bleeding was seen. Was also recently admitted at OSH (no [...] recent abx exposure for COPD ex treatment) - PPI BID - CBC BID, hgb remains stable thus far in the 7-8 range - Transfuse for Hgb < 7 - If bleeding recurs, obtain stat CTA Assessment & Plan (2025 12:16 PM PSYCHIATRY ADULT PHYSICIAN): Patient presented with recurrent painless hematochezia. Has had this issue since almost 2018. Last eval was with sigmoidoscopy in jun this year but prep was sub optimal however no active bleeding was seen. Was also recently admitted at OSH (no [...] range -If bleeding recurs, obtain stat CTA Assessment & Plan (04/03/2025 12:17 PM PSYCHIATRY ADULT PHYSICIAN): Patient presented with recurrent painless hematochezia. Has had this issue since almost 2018. Last eval was with sigmoidoscopy in jun this year but prep was sub optimal however no active bleeding was seen. Was also recently admitted at OSH (no [...] hgb -If bleeding recurs, obtain stat CTA Assessment & Plan (04/02/2025 6:17 AM PSYCHIATRY ADULT PHYSICIAN): Melena + BRBPR. - recurrent GIB since 2018. Hospitalized this year 07/2024 (flex sig done but no active bleeding) and 4 days prior at [facility] (records not available but no transfusions [...] Hold aspirin, anti hypertensives - consult GI CVA (cerebral vascular accident) 04/02/2025 Overview (04/02/2025): h/o VT (ventricular tachycardia) 04/02/2025 Overview (04/02/2025): by report Chronic HFrEF (heart failure with reduced ejection fraction) 04/02/2025 Assessment & Plan (04/06/2025 10:50 AM PSYCHIATRY ADULT PHYSICIAN): OSH TTE 07/2024 w/ EF 35-40%. Home meds include coreg and lasix 40 BID. Appears euvolumic without signs of exacerbation. CXR on 04/02 without edema. Plan: - Cont home lasix to prevent fluid overload, withholding parameters for low BP, his BP has been tolerating well so far - Keep holding coreg for now, monitor BP and could resume later on based on trend Assessment & Plan (04/05/2025 3:48 PM PSYCHIATRY ADULT PHYSICIAN): OSH TTE 07/2024 w/ EF 35-40%. Home meds include coreg and lasix 40 BID. Appears euvolumic without signs of exacerbation. CXR on 04/02 without edema. Plan: - Cont home lasix to prevent fluid overload, withholding parameters for low BP, his BP has been tolerating well so far - Keep holding coreg for now, monitor BP and could resume later on based on trend Assessment & Plan (2025 12:16 PM PSYCHIATRY ADULT PHYSICIAN): OSH TTE 07/2024 w/ EF 35-40%. Home meds include coreg and lasix 40 bid. Appears euvolumic without signs of exacerbation. CXR on 04/02 without edema. Plan: -Cont home lasix to prevent fluid overload, withholding parameters for low BP, his BP has been tolerating well so far -Keep holding coreg for now, monitor BP and could resume later on based on trend Assessment & Plan (04/03/2025 12:17 PM PSYCHIATRY ADULT PHYSICIAN): OSH TTE 07/2024 w/ EF 35-40%. Home meds include coreg and lasix 40 bid. Appears euvolumic without signs of exacerbation. CXR on 04/02 without edema. Plan: -Resume lasix today to prevent fluid overload, withholding parameters for low BP -Keep holding coreg for now, monitor BP and could resume if robust Assessment & Plan (04/02/2025 6:17 AM PSYCHIATRY ADULT PHYSICIAN): OSH TTE 07/2024 w/ EF 35-40% - OSH stress test 07/2024 w/ showing anterior/anteroseptal/apical myocardial infarction without ischemia - euvolemic on admission Plan: - hold coreg d/t GIB - hold lasix but may need to restart if getting blood transfusions History of anxiety 04/02/2025 Assessment & Plan (04/06/2025 10:50 AM PSYCHIATRY ADULT PHYSICIAN): - Resuming home xanax and zoloft. Assessment & Plan (04/05/2025 3:48 PM PSYCHIATRY ADULT PHYSICIAN): - Resuming home xanax and zoloft. Assessment & Plan (2025 12:16 PM PSYCHIATRY ADULT PHYSICIAN): Resuming home xanax and zoloft Assessment & Plan (04/03/2025 12:17 PM PSYCHIATRY ADULT PHYSICIAN): Resuming home xanax and zoloft Assessment & Plan (04/02/2025 6:17 AM PSYCHIATRY ADULT PHYSICIAN): Xanax prn nightly Chronic respiratory failure with hypoxia 025 Assessment & Plan (04/06/2025 10:50 AM PSYCHIATRY ADULT PHYSICIAN): On 3 L O2 at baseline. No PFTs in chart. No signs of acute exacerbation but he has chronic dyspnea. On Pulmicort and albuterol at home. CXR with [...] tried it before and did not tolerate - Started on roxanol which helped significantly in his dyspnea, he reported feeling like a new person. We discussed risk and benefit if continuing it as a PRN and I counseled on side effects including sedation, constipation, risk of dependence. He would benefit from palliative care referral on discharge. Assessment & Plan (04/05/2025 3:48 PM PSYCHIATRY ADULT PHYSICIAN): On 3 L O2 at baseline. No PFTs in chart. No signs of acute exacerbation but he has chronic dyspnea. On Pulmicort and albuterol at home. CXR with [...] tried it before and did not tolerate - Started on roxanol which helped significantly in his dyspnea, he reported feeling like a new person. We discussed risk and benefit if continuing it as a PRN and I counseled on side effects including sedation, constipation, risk of dependence. He would benefit from palliative care referral on discharge. Assessment & Plan (2025 12:16 PM PSYCHIATRY ADULT PHYSICIAN): On 3 L o2 at baseline. No PFTs in chart. No signs of acute exacerbation but he has chronic dyspnea. On Pulmicort and albuterol at home. CXR with [...] benefit from palliative care referral on discharge. Assessment & Plan (04/03/2025 12:17 PM PSYCHIATRY ADULT PHYSICIAN): On 3 L o2 at baseline. No PFTs in chart. No signs of acute exacerbation but he has chronic dyspnea. On Pulmicort and albuterol at home. CXR with hyperinflated lungs from emphysema. Suspect his COPD signifcant advance given thin body habitus and pursed lip breathing technique Plan: -Start duonebz ATC and PRN -Resume home pulmicort -Resuming home diuretic -Discussed qualification for BiPAP but he stated he declined as he had tried it before and did not tolerate -Trial roxanol to help alleviate dyspnea Assessment & Plan (04/02/2025 6:17 AM PSYCHIATRY ADULT PHYSICIAN): From COPD, on 3L O2 - only on albuterol at home Plan: - duonebs prn Goals of care, counseling/discussion 04/02/2025 Assessment & Plan (04/06/2025 10:50 AM PSYCHIATRY ADULT PHYSICIAN): No family members so POA is friendWeiell . - Code status was confirmed to be DNR/DNI on 04/02 by admitting physician Assessment & Plan (04/05/2025 3:48 PM PSYCHIATRY ADULT PHYSICIAN): No family members so POA is friendWeiell . - Code status was confirmed to be DNR/DNI on 04/02 by admitting physician Assessment & Plan (2025 12:16 PM PSYCHIATRY ADULT PHYSICIAN): No family members so POA = Friend Wei Tejada [phone]. Code status was confirmed to be DNRDNI on 04/02 by admitting physician Assessment & Plan (04/03/2025 12:17 PM PSYCHIATRY ADULT PHYSICIAN): No family members so POA = Friend Wei Tejada [phone] - confirmed DNRDNI on 04/02 Assessment & Plan (04/02/2025 6:17 AM PSYCHIATRY ADULT PHYSICIAN): No family members so POA = Friend Wei Tejada [phone] - confirmed DNRDNI on 04/02 History of CAD (coronary artery disease) 025 Assessment & Plan (04/06/2025 10:50 AM PSYCHIATRY ADULT PHYSICIAN): - S/p CABG and ICD. Cont home asa and statin. Assessment & Plan (04/05/2025 3:48 PM PSYCHIATRY ADULT PHYSICIAN): - S/p CABG and ICD. Cont home asa and statin. Assessment & Plan (2025 12:16 PM PSYCHIATRY ADULT PHYSICIAN): S/p CABG and ICD. Cont home asa and statin Assessment & Plan (04/03/2025 12:17 PM PSYCHIATRY ADULT PHYSICIAN): S/p CABG and ICD. Cont home asa and statin Assessment & Plan (04/02/2025 6:17 AM PSYCHIATRY ADULT PHYSICIAN): S/p CABG - statin - hold ASA Primary hypertension 02/25/2020 Assessment & Plan (04/02/2025 6:17 AM PSYCHIATRY ADULT PHYSICIAN): Hold antihypertensives d/t GIB Resolved Problems Problem Noted Date Diagnosed Date Resolved Date FELICITY (acute kidney injury) 04/02/2025 Assessment & Plan (04/03/2025 12:17 PM PSYCHIATRY ADULT PHYSICIAN): Cr at baseline Assessment & Plan (04/02/2025 6:17 AM PSYCHIATRY ADULT PHYSICIAN): Cr 1.2 (Cr 0.9 in 07/2024) - likely pre-renal. No signs of heart failure to suggest cardiorenal Plan: - may need a bit of fluids Encounters Date Type Department Care Team Description 04/01/2025 10:17 PM PSYCHIATRY ADULT PHYSICIAN - 04/06/2025 10:33 PM PSYCHIATRY ADULT PHYSICIAN Hospital Encounter [facility] [address] [place] [address] Aristeo Plunkett Jr., MD Jalloh, Samia Bay, Jennifer Solano MD Kaya, Gizem, MD Larossa, Marilyn Villafana MD Gastrointestinal hemorrhage, unspecified gastrointestinal hemorrhage type (Primary Dx); Hematochezia; Diverticulosis; Chronic respiratory acidosis (HCC); ABLA (acute blood loss anemia); Chronic dyspnea, improved Discharge Disposition: Discharge to an Rehab facility from Last 3 Months Social History Tobacco Use Types Packs/Day Years [...] on file Legal Sex Male 9:52 PM PSYCHIATRY ADULT PHYSICIAN Gender Identity Not on file Sexual Orientation Not on file Last Filed Vital Signs Vital Sign Reading Time Taken Comments Blood Pressure 148/61 04/06/2025 7:46 PM PSYCHIATRY ADULT PHYSICIAN Pulse 102 04/06/2025 9:05 PM PSYCHIATRY ADULT PHYSICIAN Temperature 36.8 C (98.2 F) 04/06/2025 7:46 PM PSYCHIATRY ADULT PHYSICIAN Respiratory Rate 18 04/06/2025 9:05 PM PSYCHIATRY ADULT PHYSICIAN Oxygen Saturation 95% 04/06/2025 9:05 PM PSYCHIATRY ADULT PHYSICIAN Inhaled Oxygen Concentration - - Weight 63.5 kg (140 lb 1.6 oz) 04/03/2025 1:35 P M PSYCHIATRY ADULT PHYSICIAN Height - - Body Mass Index - - Plan of Treatment Health Maintenance Due Date Last Done Comments Depression Screening 1941 DTaP/Tdap/Td Vaccine (1 - Tdap) 1952 Hepatitis B Screening 1959 Zoster Vaccine (1 of 2) 1991 Well Visit 65+ 2006 Covid-19 Vaccine (2024-2 6 season) 2025 05/16/2022, 04/09/2021, 08/18/2020, Additional history exists Fall Risk Assessment 04/06/2026 04/06/2025 Pneumococcal vaccine 65+ Completed 017, 02/08/2015, 08/25/2014, Additional history exists Influenza Vaccine Completed 03/11/2025, , 01/11/2022, Additional history exists Procedures Procedure Name Priority Date/Time Associated Diagnosis Comments URINALYSIS, MICROSCOPIC ONLY Routine 04/06/2025 9:17 AM PSYCHIATRY ADULT PHYSICIAN URINALYSIS AND REFLEX TO MICROSCOPIC AND CULTURE Routine 04/06/2025 9:17 AM PSYCHIATRY ADULT PHYSICIAN CBC WITHOUT DIFFERENTIAL Timed 04/06/2025 8:59 AM PSYCHIATRY ADULT PHYSICIAN MAGNESIUM Routine 04/05/2025 11:51 PM PSYCHIATRY ADULT PHYSICIAN EGFR Routine 04/05/2025 11:51 PM PSYCHIATRY ADULT PHYSICIAN BASIC METABOLIC PANEL Routine 04/05/2025 11:51 PM PSYCHIATRY ADULT PHYSICIAN CBC WITHOUT DIFFERENTIAL Timed 04/05/2025 11:51 PM PSYCHIATRY ADULT PHYSICIAN POCT GLUCOSE DEVICE Routine 04/05/2025 8 :36 AM PSYCHIATRY ADULT PHYSICIAN CBC WITHOUT DIFFERENTIAL Timed 04/05/2025 6:59 AM PSYCHIATRY ADULT PHYSICIAN EGFR Routine 2025 9:00 PM PSYCHIATRY ADULT PHYSICIAN TYPE AND SCREEN Timed 2025 9:00 PM PSYCHIATRY ADULT PHYSICIAN BASIC METABOLIC PANEL Routine 2025 9:00 PM PSYCHIATRY ADULT PHYSICIAN CBC WITHOUT DIFFERENTIAL Timed 2025 9:00 PM PSYCHIATRY ADULT PHYSICIAN CBC WITHOUT DIFFERENTIAL Timed 2025 9:49 AM PSYCHIATRY ADULT PHYSICIAN IRON PROFILE W/ IBC Routine 04/03/2025 8 :22 PM PSYCHIATRY ADULT PHYSICIAN FERRITIN Routine 04/03/2025 8:22 PM PSYCHIATRY ADULT PHYSICIAN EGFR Routine 04/03/2025 8:22 PM PSYCHIATRY ADULT PHYSICIAN BASIC METABOLIC PANEL Routine 04/03/2025 8:22 PM PSYCHIATRY ADULT PHYSICIAN CBC WITHOUT DIFFERENTIAL Timed 04/03/2025 8:22 PM PSYCHIATRY ADULT PHYSICIAN CBC WITHOUT DIFFERENTIAL Routine 04/03/2025 4:01 AM PSYCHIATRY ADULT PHYSICIAN EGFR Routine 04/02/2025 7:30 PM PSYCHIATRY ADULT PHYSICIAN CBC WITHOUT DIFFERENTIAL Timed 04/02/2025 7:30 PM PSYCHIATRY ADULT PHYSICIAN BASIC METABOLIC PANEL Routine 04/02/2025 7:30 PM PSYCHIATRY ADULT PHYSICIAN CBC WITHOUT DIFFERENTIAL Timed 04/02/2025 7:30 PM PSYCHIATRY ADULT PHYSICIAN EGFR Timed 04/02/2025 1:23 PM PSYCHIATRY ADULT PHYSICIAN CBC WITHOUT DIFFERENTIAL Timed 04/02/2025 1:23 PM PSYCHIATRY ADULT PHYSICIAN BASIC METABOLIC PANEL Timed 04/02/2025 1:23 PM PSYCHIATRY ADULT PHYSICIAN XR CHEST 1 VIEW ED Urgent/IP Urgent 04/02/2025 10:17 AM PSYCHIATRY ADULT PHYSICIAN CBC WITHOUT DIFFERENTIAL STAT 04/02/2025 6:14 AM PSYCHIATRY ADULT PHYSICIAN ECG 12-LEAD Routine 04/02/2025 3:30 AM PSYCHIATRY ADULT PHYSICIAN CBC WITHOUT DIFFERENTIAL Timed 04/02/2025 3:10 AM PSYCHIATRY ADULT PHYSICIAN TROPONIN I HIGH-SENSITIVITY 2-HOUR Timed 04/02/2025 3:10 AM PSYCHIATRY ADULT PHYSICIAN BLOOD GAS, VENOUS STAT 04/02/2025 1:3 4 AM PSYCHIATRY ADULT PHYSICIAN TROPONIN I HIGH-SENSITIVITY SERIES (BASELINE, 2HR, 4HR, 6HR) STAT 04/02/2025 1:11 AM PSYCHIATRY ADULT PHYSICIAN PRO B-TYPE NATRIURETIC PEPTIDE STAT 04/02/2025 1:10 AM PSYCHIATRY ADULT PHYSICIAN B CHECK SAMPLE STAT 04/02/2025 12:[address]RY [address] ABDOMEN PELVIS W WO CONTRAST ED Urgent/IP Urgent 04/02/2025 12:37 AM PSYCHIATRY ADULT PHYSICIAN POCT CREATININE - DEVICE Routine 04/01/2025 11:42 PM PSYCHIATRY ADULT PHYSICIAN HEPARIN ANTI FACTOR XA ACTIVITY STAT 04/01/2025 10:51 PM PSYCHIATRY ADULT PHYSICIAN EGFR STAT 04/01/2025 10:51 PM PSYCHIATRY ADULT PHYSICIAN DIFFERENTIAL AUTO STAT 04/01/2025 10: 51 PM PSYCHIATRY ADULT PHYSICIAN TYPE AND SCREEN STAT 04/01/2025 10:51 PM PSYCHIATRY ADULT PHYSICIAN APTT STAT 04/01/2025 10:51 PM PSYCHIATRY ADULT PHYSICIAN PROTIME-INR STAT 04/01/2025 10:51 PM PSYCHIATRY ADULT PHYSICIAN COMPREHENSIVE METABOLIC PANEL STAT 04/01/2025 10:51 PM PSYCHIATRY ADULT PHYSICIAN CBC WITH AUTO DIFFERENTIAL STAT 04/01/2025 10:51 PM PSYCHIATRY ADULT PHYSICIAN from Last 3 Months Results * (ABNORMAL) Urinalysis reflex to microscopic and culture Urine (04/06/2025 9:17 AM PSYCHIATRY ADULT PHYSICIAN) Color, ur Cristina Yellow Clarity, ur Cloudy(A) Clear [facility] Specific gravity, ur 1.019 1.003 - 1.030 [facility] pH, urine 5.5 [facility] Comment: Interpretive Data U rine pH is affected by diet, medications, systemic acid-base disturbances, and renal tubular function. pH may affect urinary stone formation. For example, urine pH below 6.0 may help reduce the tendency for calcium phosphate stones and pH greater than 6.0 may reduce the tendency for uric acid stone formation. Source: [facility] Current Interpretive Data was last revised on 2017 Protein, ur ql 1+(A) Negative [facility] Glucose, ur ql Negative Negative [facility] Ketones, ur Negative Negative [facility] Bilirubin, ur Negative Negative [facility] Blood, ur 3+(A) Negative [facility] Urobilinogen, ur <2.0 <2.0 mg/dL [facility] Nitrite, ur Negative Negative [facility] Leukocyte esterase, ur 3+(A) Negative [facility] UA reflex comment Reflex to microscopic UA will be performed. [facility] Urine 04/06/2025 9:17 AM PSYCHIATRY ADULT PHYSICIAN 04/06/2025 9:48 AM PSYCHIATRY ADULT PHYSICIAN Kathryn JALLOH LAB MICROBIOLOGY - NERAL ORDERABLES Final Result Performing Organization Address [facility] Co de Phone Number [facility] Department [place] [address] * (ABNORMAL) Urinalysis, microscopic only (04/06/2025 9:17 AM PSYCHIATRY ADULT PHYSICIAN) WBC, ur >50(A) 0 - 5 /HPF RBC, ur >50(A) 0 - 2 /HPF [facility] Epithelial cells, squamous, ur 1-5 0 - 5 /HPF [facility] Bacteria, ur 1+(A) [facility] Mucous, ur Present(A) [facility] Hyaline casts, ur 6-10 0 - 10 /LPF [facility] Culture Reflex Comment Reflex to urine culture will be performed. [facility] Urine 04/06/2025 9:17 AM PSYCHIATRY ADULT PHYSICIAN 04/06/2025 9:48 AM PSYCHIATRY ADULT PHYSICIAN Kathryn JALLOH LAB URINE ORDERABLES Final Result Performing Organization Address [facility]/ZIP Co de Phone Number [facility] [place] [address] * (ABNORMAL) CBC without differential (04/06/2025 8:59 AM PSYCHIATRY ADULT PHYSICIAN) [facility] WBC 15.79(H) 3.80 - 9.90 K/cumm Hgb 8.0(L) 13.0 - 17.5 g/dL [facility] Hct 24.6(L) 38.9 - 50.3 % [facility] Plt 293 150 - 400 K/cumm [facility] MPV 9.9 9.1 - 12.3 fL [facility] RBC 2.50(L) 4.30 - 5.80 M/cumm [facility] MCV 98.4(H) 81.3 - 96.4 fL [facility] MCH 32.0 27.1 - 33.3 pg [facility] MCHC 32.5 32.3 - 35.7 g/dL [facility] RDW CV 14.4 11.1 - 14.9 % [facility] RDW SD 49.0(H) 35.7 - 48.1 fL [facility] NRBC abs 0.00 0.00 - 0.01 K/cumm [facility] Blood 04/06/2025 8:59 AM PSYCHIATRY ADULT PHYSICIAN 04/06/2025 9:43 AM PSYCHIATRY ADULT PHYSICIAN Jennifer Burris MD LAB BLOOD ORDERABLES Final Re sult Performing Organization Address [facility] Co de Phone Number [facility] Department [place] [address] * eGFR (04/05/2025 11:51 PM PSYCHIATRY ADULT PHYSICIAN) [facility] eGFR 68 >=60 mL/min/1. 73 m2 Comment: [...] reviewed 2021. Blood 04/05/2025 11:5 1 PM PSYCHIATRY ADULT PHYSICIAN 04/06/2025 12:43 AM PSYCHIATRY ADULT PHYSICIAN us Jennifer Burris MD LAB BLOOD ORDERABLES Final Re sult [facility] [place] [address] * (ABNORMAL) CBC without differential (04/05/2025 11:51 PM PSYCHIATRY ADULT PHYSICIAN) WBC 9.47 3.80 - 9.90 K/cumm Hgb 7.1(L) 13.0 - 17.5 g/dL [facility] Hct 22.7(L) 38.9 - 50.3 % [facility] Plt 241 150 - 400 K/cumm [facility] MPV 10.0 9.1 - 12.3 fL [facility] RBC 2.25(L) 4.30 - 5.80 M/cumm [facility] MCV 100.9(H) 81.3 - 96.4 fL [facility] MCH 31.6 27.1 - 33.3 pg [facility] MCHC 31.3(L) 32.3 - 35.7 g/dL [facility] RDW CV 14.2 11.1 - 14.9 % [facility] RDW SD 51.0(H) 35.7 - 48.1 fL [facility] NRBC abs 0.00 0.00 - 0.01 K/cumm [facility] Blood 04/05/2025 11:5 1 PM PSYCHIATRY ADULT PHYSICIAN 04/06/2025 12:44 AM PSYCHIATRY ADULT PHYSICIAN Jennifer Burris MD LAB BLOOD ORDERABLES Final Re sult [facility] [place] [address] * Magnesium (04/05/2025 11:51 PM PSYCHIATRY ADULT PHYSICIAN) Pathologist [facility] Magnesium 2.0 1.4 - 2.5 mg/dL Blood 04/05/2025 11:5 1 PM PSYCHIATRY ADULT PHYSICIAN 04/06/2025 12:43 AM PSYCHIATRY ADULT PHYSICIAN us Suyapa Syed MD LAB BLOOD ORDERABLES Final Resul t Performing Organization Address [facility] de Phone Number [facility] [place] [address] * (ABNORMAL) Basic metabolic panel (04/05/2025 11:51 PM PSYCHIATRY ADULT PHYSICIAN) Pathologist [facility] Sodium 143 135 - 145 mmol/L Potassium, pl 3.2(L) 3.3 - 4.9 mmol/L [facility] Chloride 98 97 - 110 mmol/L [facility] CO2 38(H) 22 - 32 mmol/L [facility] Anion gap 7 2 - 15 mmol/L [facility] BUN 17 6 - 25 mg/dL [facility] Creatinine 1.08 0.80 - 1.30 mg/dL [facility] Glucose 105 70 - 199 mg/dL [facility] Comment: Interpretive Data Fasting glucose >/= 126 [...] 2022. Calcium 8.1(L) 8.5 - 10.3 mg/dL [facility] Blood 04/05/2025 11:5 1 PM PSYCHIATRY ADULT PHYSICIAN 04/06/2025 12:43 AM PSYCHIATRY ADULT PHYSICIAN Jennifer Burris MD LAB BLOOD ORDERABLES Final Re sult Performing Organization Address City/[facility]/ZIP Co de Phone Number [facility] [place] [address] * POCT glucose (04/05/2025 8:36 AM PSYCHIATRY ADULT PHYSICIAN) [facility] Glucose, POC 114 70 - 199 mg/dL Blood 04/05/2025 8:36 AM PSYCHIATRY ADULT PHYSICIAN 04/05/2025 8:36 AM PSYCHIATRY ADULT PHYSICIAN Suyapa Syed MD LAB POCT ORDERABLES - DEVICE Fin al Result Performing Organization Address [facility] de Phone Number [facility] [place] [address] * (ABNORMAL) CBC without differential (04/05/2025 6:59 AM PSYCHIATRY ADULT PHYSICIAN) [facility] WBC 14.23(H) 3.80 - 9.90 K/cumm Hgb 7.8(L) 13.0 - 17.5 g/dL [facility] Hct 24.6(L) 38.9 - 50.3 % [facility] Plt 275 150 - 400 K/cumm [facility] MPV 9.7 9.1 - 12.3 fL [facility] RBC 2.50(L) 4.30 - 5.80 M/cumm [facility] MCV 98.4(H) 81.3 - 96.4 fL [facility] MCH 31.2 27.1 - 33.3 pg [facility] MCHC 31.7(L) 32.3 - 35.7 g/dL [facility] RDW CV 13.7 11.1 - 14.9 % [facility] RDW SD 48.4(H) 35.7 - 48.1 fL [facility] NRBC abs 0.00 0.00 - 0.01 K/cumm [facility] Blood 04/05/2025 6:59 AM PSYCHIATRY ADULT PHYSICIAN 04/05/2025 7:25 AM PSYCHIATRY ADULT PHYSICIAN us Jennifer Burris MD LAB BLOOD ORDERABLES Final Re sult Performing Organization Address City/[facility] Co de Phone Number [facility] [place] [address] * eGFR (2025 9:00 PM PSYCHIATRY ADULT PHYSICIAN) eGFR 61 >=60 mL/min/1. 73 m2 Comment: [...] last reviewed 2021. Blood 2025 9:00 PM PSYCHIATRY ADULT PHYSICIAN 2025 9:34 PM PSYCHIATRY ADULT PHYSICIAN us Jennifer Burris MD LAB BLOOD ORDERABLES Final Re sult Performing Organization Address [facility] Co de Phone Number [facility] [place] [address] * (ABNORMAL) CBC without differential (2025 9:00 PM PSYCHIATRY ADULT PHYSICIAN) WBC 11.25(H) 3.80 - 9.90 K/cumm Hgb 7.5(L) 13.0 - 17.5 g/dL [facility] Hct 24.2(L) 38.9 - 50.3 % [facility] Plt 249 150 - 400 K/cumm [facility] MPV 9.9 9.1 - 12.3 fL [facility] RBC 2.41(L) 4.30 - 5.80 M/cumm [facility] MCV 100.4(H) 81.3 - 96.4 fL [facility] MCH 31.1 27.1 - 33.3 pg [facility] MCHC 31.0(L) 32.3 - 35.7 g/dL [facility] RDW CV 13.6 11.1 - 14.9 % [facility] RDW SD 49.1(H) 35.7 - 48.1 fL [facility] NRBC abs 0.00 0.00 - 0.01 K/cumm [facility] Blood 2025 9:00 PM PSYCHIATRY ADULT PHYSICIAN 2025 9:33 PM PSYCHIATRY ADULT PHYSICIAN us Jennifer Burris MD LAB BLOOD ORDERABLES Final Re sult [facility] [place] [address] * Type and screen (2025 9:00 PM PSYCHIATRY ADULT PHYSICIAN) ABO Rh O Positive Todd, indirect Negative [facility] Blood 2025 9:00 PM PSYCHIATRY ADULT PHYSICIAN 2025 9:50 PM PSYCHIATRY ADULT PHYSICIAN Narrative [facility] - 2025 11:01 PM PSYCHIATRY ADULT PHYSICIAN Has the patient had Daratumumab or Isatuximab in the past 6 months?->Unknown us Lida Borja MD PhD LAB BLOOD BANK TEST ORDERAB LES Final Result [facility] [place] [address] * (ABNORMAL) Basic metabolic panel (2025 9:00 PM PSYCHIATRY ADULT PHYSICIAN) Pathologist [facility] Sodium 141 135 - 145 mmol/L Potassium, pl 3.7 3.3 - 4.9 mmol/L [facility] Chloride 99 97 - 110 mmol/L [facility] CO2 37(H) 22 - 32 mmol/L [facility] Anion gap 5 2 - 15 mmol/L [facility] BUN 20 6 - 25 mg/dL [facility] Creatinine 1.18 0.80 - 1.30 mg/dL [facility] Glucose 91 70 - 199 mg/dL [facility] Comment: Interpretive Data Fasting glucose >/= 126 [...] 2022. Calcium 8.8 8.5 - 10.3 mg/dL [facility] Blood 2025 9:00 PM PSYCHIATRY ADULT PHYSICIAN 2025 9:34 PM PSYCHIATRY ADULT PHYSICIAN Jennifer Burris MD LAB BLOOD ORDERABLES Final Re sult [facility] [place] [address] * (ABNORMAL) CBC without differential (2025 9:49 AM PSYCHIATRY ADULT PHYSICIAN) Pathologist [facility] WBC 11.45(H) 3.80 - 9.90 K/cumm Hgb 7.9(L) 13.0 - 17.5 g/dL [facility] Hct 24.7(L) 38.9 - 50.3 % [facility] Plt 233 150 - 400 K/cumm [facility] MPV 9.8 9.1 - 12.3 fL [facility] RBC 2.52(L) 4.30 - 5.80 M/cumm [facility] MCV 98.0(H) 81.3 - 96.4 fL [facility] MCH 31.3 27.1 - 33.3 pg [facility] MCHC 32.0(L) 32.3 - 35.7 g/dL [facility] RDW CV 13.7 11.1 - 14.9 % [facility] RDW SD 48.1 35.7 - 48.1 fL [facility] NRBC abs 0.00 0.00 - 0.01 K/cumm [facility] Blood 2025 9:49 AM PSYCHIATRY ADULT PHYSICIAN 2025 10:50 AM PSYCHIATRY ADULT PHYSICIAN us Jennifer Burris MD LAB BLOOD ORDERABLES Final Re sult [facility] [place] [address] * eGFR (04/03/2025 8:22 PM PSYCHIATRY ADULT PHYSICIAN) eGFR 72 >=60 mL/min/1. 73 m2 Comment: [...] last reviewed 2021. Blood 04/03/2025 8:22 PM PSYCHIATRY ADULT PHYSICIAN 04/03/2025 8:46 PM PSYCHIATRY ADULT PHYSICIAN Jennifer Burris MD LAB BLOOD ORDERABLES Final Re sult [facility] [place] [address] * (ABNORMAL) Iron profile w/ IBC (04/03/2025 8:22 PM PSYCHIATRY ADULT PHYSICIAN) Pathologist [facility] Iron 40(L) 50 - 150 mcg/dL TIBC 219(L) 250 - 400 mcg/dL [facility] Transferrin saturation 18(L) 20 - 50 % [facility] Blood 04/03/2025 8:22 PM PSYCHIATRY ADULT PHYSICIAN 04/03/2025 8:46 PM PSYCHIATRY ADULT PHYSICIAN Jennifer Burris MD LAB BLOOD ORDERABLES Final Re sult Performing Organization Address City/[facility]/[place] [address] * (ABNORMAL) CBC without differential (04/03/2025 8:22 PM PSYCHIATRY ADULT PHYSICIAN) Pathologist [facility] WBC 12.92(H) 3.80 - 9.90 K/cumm Hgb 8.1(L) 13.0 - 17.5 g/dL [facility] Hct 24.8(L) 38.9 - 50.3 % [facility] Plt 248 150 - 400 K/cumm [facility] MPV 9.9 9.1 - 12.3 fL [facility] RBC 2.55(L) 4.30 - 5.80 M/cumm [facility] MCV 97.3(H) 81.3 - 96.4 fL [facility] MCH 31.8 27.1 - 33.3 pg [facility] MCHC 32.7 32.3 - 35.7 g/dL [facility] RDW CV 13.5 11.1 - 14.9 % [facility] RDW SD 47.3 35.7 - 48.1 fL [facility] NRBC abs 0.00 0.00 - 0.01 K/cumm [facility] Blood 04/03/2025 8:22 PM PSYCHIATRY ADULT PHYSICIAN 04/03/2025 8:47 PM PSYCHIATRY ADULT PHYSICIAN Jennifer Burris MD LAB BLOOD ORDERABLES Final Re sult Performing Organization Address City/[facility] Co de Phone Number [facility] [place] [address] * Ferritin (04/03/2025 8:22 PM PSYCHIATRY ADULT PHYSICIAN) [facility] Ferritin 48 30 - 400 ng/mL Blood 04/03/2025 8:22 PM PSYCHIATRY ADULT PHYSICIAN 04/03/2025 8:46 PM PSYCHIATRY ADULT PHYSICIAN Jennifer Burris MD LAB BLOOD ORDERABLES Final Re sult Performing Organization Address [facility] de Phone Number [facility] [place] [address] * (ABNORMAL) Basic metabolic panel (04/03/2025 8:22 PM PSYCHIATRY ADULT PHYSICIAN) [facility] Sodium 140 135 - 145 mmol/L Potassium, pl 3.9 3.3 - 4.9 mmol/L [facility] Chloride 99 97 - 110 mmol/L [facility] CO2 35(H) 22 - 32 mmol/L [facility] Anion gap 6 2 - 15 mmol/L [facility] BUN 18 6 - 25 mg/dL [facility] Creatinine 1.03 0.80 - 1.30 mg/dL [facility] Glucose 134 70 - 199 mg/dL [facility] Comment: Interpretive Data Fasting glucose >/= 126 [...] 2022. Calcium 8.5 8.5 - 10.3 mg/dL [facility] Blood 04/03/2025 8:22 PM PSYCHIATRY ADULT PHYSICIAN 04/03/2025 8:46 PM PSYCHIATRY ADULT PHYSICIAN us Jennifer Burris MD LAB BLOOD ORDERABLES Final Re sult [facility] [place] [address] * (ABNORMAL) CBC without differential (04/03/2025 4:01 AM PSYCHIATRY ADULT PHYSICIAN) Pathologist [facility] WBC 10.04(H) 3.80 - 9.90 K/cumm Hgb 7.8(L) 13.0 - 17.5 g/dL [facility] Hct 23.3(L) 38.9 - 50.3 % [facility] Plt 217 150 - 400 K/cumm [facility] MPV 9.9 9.1 - 12.3 fL [facility] RBC 2.45(L) 4.30 - 5.80 M/cumm [facility] MCV 95.1 81.3 - 96.4 fL [facility] MCH 31.8 27.1 - 33.3 pg [facility] MCHC 33.5 32.3 - 35.7 g/dL [facility] RDW CV 13.4 11.1 - 14.9 % [facility] RDW SD 46.3 35.7 - 48.1 fL [facility] NRBC abs 0.00 0.00 - 0.01 K/cumm [facility] Blood 04/03/2025 4:01 AM PSYCHIATRY ADULT PHYSICIAN 04/03/2025 4:29 AM PSYCHIATRY ADULT PHYSICIAN us Rubin Ricardo MD LAB BLOOD ORDERABLES F inal Result Performing Organization Address [facility] Co de Phone Number [facility] [place] [address] * eGFR (04/02/2025 7:30 PM PSYCHIATRY ADULT PHYSICIAN) Pathologist [facility] eGFR 69 >=60 mL/min/1. 73 m2 Comment: [...] last reviewed 2021. Blood 04/02/2025 7:30 PM PSYCHIATRY ADULT PHYSICIAN 04/02/2025 8:30 PM PSYCHIATRY ADULT PHYSICIAN us Jennifer Burris MD LAB BLOOD ORDERABLES Final Re sult Performing Organization Address [facility] Co de Phone Number [facility] [place] [address] * (ABNORMAL) CBC without differential (04/02/2025 7:30 PM PSYCHIATRY ADULT PHYSICIAN) Pathologist [facility] WBC 10.71(H) 3.80 - 9.90 K/cumm Hgb 8.2(L) 13.0 - 17.5 g/dL [facility] Hct 25.3(L) 38.9 - 50.3 % [facility] Plt 250 150 - 400 K/cumm [facility] MPV 9.9 9.1 - 12.3 fL [facility] RBC 2.61(L) 4.30 - 5.80 M/cumm [facility] MCV 96.9(H) 81.3 - 96.4 fL [facility] MCH 31.4 27.1 - 33.3 pg [facility] MCHC 32.4 32.3 - 35.7 g/dL [facility] RDW CV 13.4 11.1 - 14.9 % [facility] RDW SD 47.4 35.7 - 48.1 fL [facility] NRBC abs 0.00 0.00 - 0.01 K/cumm [facility] Blood 04/02/2025 7:30 PM PSYCHIATRY ADULT PHYSICIAN 04/02/2025 8:31 PM PSYCHIATRY ADULT PHYSICIAN us Jennifer Burris MD LAB BLOOD ORDERABLES Final Re sult [facility] [place] [address] * (ABNORMAL) CBC without differential (04/02/2025 7:30 PM PSYCHIATRY ADULT PHYSICIAN) WBC 10.91(H) 3.80 - 9.90 K/cumm Hgb 8.2(L) 13.0 - 17.5 g/dL [facility] Hct 25.7(L) 38.9 - 50.3 % [facility] Plt 251 150 - 400 K/cumm [facility] MPV 10.1 9.1 - 12.3 fL [facility] RBC 2.64(L) 4.30 - 5.80 M/cumm [facility] MCV 97.3(H) 81.3 - 96.4 fL [facility] MCH 31.1 27.1 - 33.3 pg [facility] MCHC 31.9(L) 32.3 - 35.7 g/dL [facility] RDW CV 13.4 11.1 - 14.9 % [facility] RDW SD 47.3 35.7 - 48.1 fL [facility] NRBC abs 0.00 0.00 - 0.01 K/cumm [facility] Blood 04/02/2025 7:30 PM PSYCHIATRY ADULT PHYSICIAN 04/02/2025 8:32 PM PSYCHIATRY ADULT PHYSICIAN Jennifer Burris MD LAB BLOOD ORDERABLES Final Re sult Performing Organization Address City/[facility]/ZIP Co de Phone Number [facility] [place] [address] * (ABNORMAL) Basic metabolic panel (04/02/2025 7:30 PM PSYCHIATRY ADULT PHYSICIAN) [facility] Sodium 143 135 - 145 mmol/L Potassium, pl 3.5 3.3 - 4.9 mmol/L [facility] Chloride 100 97 - 110 mmol/L [facility] CO2 36(H) 22 - 32 mmol/L [facility] Anion gap 7 2 - 15 mmol/L [facility] BUN 18 6 - 25 mg/dL [facility] Creatinine 1.07 0.80 - 1.30 mg/dL [facility] Glucose 165 70 - 199 mg/dL [facility] Comment: Interpretive Data Fasting glucose >/= 126 [...] 2022. Calcium 8.9 8.5 - 10.3 mg/dL [facility] Blood 04/02/2025 7:30 PM PSYCHIATRY ADULT PHYSICIAN 04/02/2025 8:30 PM PSYCHIATRY ADULT PHYSICIAN Jennifer Burris MD LAB BLOOD ORDERABLES Final Re sult Performing Organization Address [facility]/ZIP Co de Phone Number [facility] [place] [address] * eGFR (04/02/2025 1:23 PM PSYCHIATRY ADULT PHYSICIAN) [facility] eGFR 73 >=60 mL/min/1. 73 m2 Comment: [...] last reviewed 2021. Blood 04/02/2025 1:23 PM PSYCHIATRY ADULT PHYSICIAN 04/02/2025 1:46 PM PSYCHIATRY ADULT PHYSICIAN us Lida Borja MD PhD LAB BLOOD ORDERABLES Final Result [facility] [place] [address] * (ABNORMAL) CBC without differential (04/02/2025 1:23 PM PSYCHIATRY ADULT PHYSICIAN) [facility] WBC 10.85(H) 3.80 - 9.90 K/cumm Hgb 8.4(L) 13.0 - 17.5 g/dL [facility] Hct 25.4(L) 38.9 - 50.3 % [facility] Plt 174 150 - 400 K/cumm [facility] MPV 10.1 9.1 - 12.3 fL [facility] RBC 2.66(L) 4.30 - 5.80 M/cumm [facility] MCV 95.5 81.3 - 96.4 fL [facility] MCH 31.6 27.1 - 33.3 pg [facility] MCHC 33.1 32.3 - 35.7 g/dL [facility] RDW CV 13.4 11.1 - 14.9 % [facility] RDW SD 47.0 35.7 - 48.1 fL [facility] NRBC abs 0.00 0.00 - 0.01 K/cumm [facility] Blood 04/02/2025 1:23 PM PSYCHIATRY ADULT PHYSICIAN 04/02/2025 1:46 PM PSYCHIATRY ADULT PHYSICIAN us Jennifer Burris MD LAB BLOOD ORDERABLES Final Re sult [facility] [place] [address] * (ABNORMAL) Basic metabolic panel (04/02/2025 1:23 PM PSYCHIATRY ADULT PHYSICIAN) Sodium 143 135 - 145 mmol/L Potassium, pl 4.0 3.3 - 4.9 mmol/L [facility] Chloride 99 97 - 110 mmol/L [facility] CO2 35(H) 22 - 32 mmol/L [facility] Anion gap 9 2 - 15 mmol/L [facility] BUN 21 6 - 25 mg/dL [facility] Creatinine 1.02 0.80 - 1.30 mg/dL [facility] Glucose 138 70 - 199 mg/dL [facility] Comment: Interpretive Data Fasting glucose >/= 126 [...] 2022. Calcium 8.9 8.5 - 10.3 mg/dL [facility] Blood 04/02/2025 1:23 PM PSYCHIATRY ADULT PHYSICIAN 04/02/2025 1:46 PM PSYCHIATRY ADULT PHYSICIAN us Lida Borja MD PhD LAB BLOOD ORDERABLES Final Result [facility]EL[facility]O [facility] [place] [address] * XR Chest 1 View (04/02/2025 10:17 AM PSYCHIATRY ADULT PHYSICIAN) Anatomical Region Laterality Modality Body, Chest N/A Digital Radiogra phy 04/02/2025 1:03 PM PSYCHIATRY ADULT PHYSICIAN Impressions 04/02/2025 1:03 PM PSYCHIATRY ADULT PHYSICIAN No prior images available for comparison. Left [...] Armando Martinez M.D. Narrative 04/02/2025 1:03 PM PSYCHIATRY ADULT PHYSICIAN EXAMINATION: 1 view chest radiograph Procedure Note [...] (ABNORMAL) CBC without differential (04/02/2025 6:14 AM PSYCHIATRY ADULT PHYSICIAN) WBC 11.27(H) 3.80 - 9.90 K/cumm Hgb 8.4(L) 13.0 - 17.5 g/dL [facility] Hct 25.3(L) 38.9 - 50.3 % [facility] Plt 210 150 - 400 K/cumm [facility] MPV 10.1 9.1 - 12.3 fL [facility] RBC 2.64(L) 4.30 - 5.80 M/cumm [facility] MCV 95.8 81.3 - 96.4 fL [facility] MCH 31.8 27.1 - 33.3 pg [facility] MCHC 33.2 32.3 - 35.7 g/dL [facility] RDW CV 13.3 11.1 - 14.9 % [facility] RDW SD 46.2 35.7 - 48.1 fL [facility] NRBC abs 0.00 0.00 - 0.01 K/cumm [facility] Blood 04/02/2025 6:14 AM PSYCHIATRY ADULT PHYSICIAN 04/02/2025 6:50 AM PSYCHIATRY ADULT PHYSICIAN us Lida Borja MD PhD LAB BLOOD ORDERABLES Final Result [facility] [place] [address] * ECG 12-LEAD (04/02/2025 3:30 AM PSYCHIATRY ADULT PHYSICIAN) Narrative [facility] - 04/02/2025 3:30 AM PSYCHIATRY ADULT PHYSICIAN Aristeo Plunkett Jr., MD 04/02/2025 3:31 AM [...] Bola Harris MD ECG ORDERABLES Final Result [facility] * Troponin I high-sensitivity 2-hour (04/02/2025 3:10 AM PSYCHIATRY ADULT PHYSICIAN) Pathologist [facility] Trop I hs 18 <=35 ng/L Comment: Interpretive Data For further hscTnI resources including the diagnostic algorithm and an aid in interpretation, copy and paste this link: https://bjhlab.testcatalog.org/show/[email or web address] Current Interpretive Data last revised 2019. Trop I hs delta 2 ng/L [facility] Trop I hs interp Insignificant [facility] Blood 04/02/2025 3:10 AM PSYCHIATRY ADULT PHYSICIAN 04/02/2025 3:42 AM PSYCHIATRY ADULT PHYSICIAN Bola Harris MD LAB BLOOD ORDERABLES F inal Result Performing Organization Address City/[facility] Co de Phone Number [facility] [place] [address] * (ABNORMAL) CBC without differential (04/02/2025 3:10 AM PSYCHIATRY ADULT PHYSICIAN) [facility] WBC 10.77(H) 3.80 - 9.90 K/cumm Hgb 7.7(L) 13.0 - 17.5 g/dL [facility] Hct 23.1(L) 38.9 - 50.3 % [facility] Plt 192 150 - 400 K/cumm [facility] MPV 10.1 9.1 - 12.3 fL [facility] RBC 2.42(L) 4.30 - 5.80 M/cumm [facility] MCV 95.5 81.3 - 96.4 fL [facility] MCH 31.8 27.1 - 33.3 pg [facility] MCHC 33.3 32.3 - 35.7 g/dL [facility] RDW CV 13.2 11.1 - 14.9 % [facility] RDW SD 45.5 35.7 - 48.1 fL [facility] NRBC abs 0.00 0.00 - 0.01 K/cumm [facility] Blood 04/02/2025 3:10 AM PSYCHIATRY ADULT PHYSICIAN 04/02/2025 3:42 AM PSYCHIATRY ADULT PHYSICIAN Result [facility] Bola Harris MD LAB BLOOD ORDERABLES F inal Result Performing Organization Address [facility] de Phone Number [facility] [place] [address] * (ABNORMAL) Blood gas, venous (04/02/2025 1:34 AM PSYCHIATRY ADULT PHYSICIAN) Pathologist [facility] pH, Venous 7.33 7.32 - 7.43 PCO2, Venous 72(H) 40 - 50 mmHg [facility] PO2, Venous 36 mmHg [facility] Comment: Interpretive Data No Reference Range Established Current Interpretive Data was last revised on 2017. HCO3 Venous, Calculated 37(H) 20 - 30 mmol/L [facility] BE, venous 10 mmol/L [facility] Comment: Interpretive Data No Reference Range Established Current Interpretive Data was last revised on 2017. Blood 04/02/2025 1:34 AM PSYCHIATRY ADULT PHYSICIAN 04/02/2025 1:35 AM PSYCHIATRY ADULT PHYSICIAN Aristeo Plunkett Jr., MD LAB BLOOD ORDERABLES F inal Result Performing Organization Address [facility] de Phone Number [facility] [place] [address] * Troponin I high-sensitivity series (baseline, 2hr, 4hr, 6hr) (04/02/2025 1:11 AM PSYCHIATRY ADULT PHYSICIAN) Pathologist [facility] Trop I hs 16 <=35 ng/L Comment: Interpretive Data For further hscTnI resources including the diagnostic algorithm and an aid in interpretation, copy and paste this link: https://bjhlab.testcatalog.org/show/[email or web address] Current Interpretive Data last revised 2019. Blood 04/02/2025 1:11 AM PSYCHIATRY ADULT PHYSICIAN 04/02/2025 1:39 AM PSYCHIATRY ADULT PHYSICIAN us Bola Harris MD LAB BLOOD ORDERABLES F inal Result [facility] Department [place] [address] * (ABNORMAL) Pro B-type natriuretic peptide (04/02/2025 1:10 AM PSYCHIATRY ADULT PHYSICIAN) NT-proBNP 902(H) <=450 pg/mL Comment: Interpretive Comments: [...] et.al. Eur Heart J. 2006:27:330-337. 2. Mil ESCOBEDO, Tami LOPEZ. J. AM Stefania Cardiol: Cardiovasc Imag. 2009;2: 216- 225. Interpretive Data Last Revised Date: 2017. Blood 04/02/2025 1:10 AM PSYCHIATRY ADULT PHYSICIAN 04/02/2025 1:42 AM PSYCHIATRY ADULT PHYSICIAN us Aristeo Plunkett Jr., MD LAB BLOOD ORDERABLES F inal Result Performing Organization Address City/[facility] Co de Phone Number [facility] Department [place] [address] * Check Sample (04/02/2025 12:57 AM PSYCHIATRY ADULT PHYSICIAN) ABO Rh O Positive [facility] HCLL OTHER 04/02/2025 12:5 7 AM PSYCHIATRY ADULT PHYSICIAN 04/02/2025 1:16 AM PSYCHIATRY ADULT PHYSICIAN Kevin Resendez MD LAB BLOOD ORDERABLES Final R esult Performing Organization Address [facility] de Phone Number [facility] [place] [address] [facility] * CT Abdomen Pelvis W WO Contrast (04/02/2025 12:37 AM PSYCHIATRY ADULT PHYSICIAN) Anatomical Region Laterality Modality Body N/A Computed Tomogra phy 04/02/2025 2:08 AM PSYCHIATRY ADULT PHYSICIAN Impressions 04/02/2025 8:33 AM PSYCHIATRY ADULT PHYSICIAN 1. Focus of hyperattenuation along the wall [...] Joss Chaney M.D. Narrative 04/02/2025 8:33 AM PSYCHIATRY ADULT PHYSICIAN EXAMINATION: Computed tomography of the abdomen and [...] it. Electronically signed by: Joss Chaney M.D. us Bola Harris MD IMG CT PROCEDURES Emilee l Result * POCT creatinine (04/01/2025 11:42 PM PSYCHIATRY ADULT PHYSICIAN) [facility] Creatinine POC 1.2 0.8 - 1.3 mg/dL Blood 04/01/2025 11:4 2 PM PSYCHIATRY ADULT PHYSICIAN 04/01/2025 11:42 PM PSYCHIATRY ADULT PHYSICIAN us Notinfile Unknown LAB POCT ORDERABLES - DEVICE F inal Result [facility] [place] [address] * (ABNORMAL) eGFR (04/01/2025 10:51 PM PSYCHIATRY ADULT PHYSICIAN) [facility] eGFR 59(L) >=60 mL/min/1. 73 m2 Comment: [...] reviewed 2021. Blood 04/01/2025 10:5 1 PM PSYCHIATRY ADULT PHYSICIAN 04/01/2025 11:10 PM PSYCHIATRY ADULT PHYSICIAN us Bola Harris MD LAB BLOOD ORDERABLES F inal Result [facility] [place] [address] * (ABNORMAL) Differential, auto (04/01/2025 10:51 PM PSYCHIATRY ADULT PHYSICIAN) Neutrophil abs 10.99(H) 1.50 - 6.50 K/cumm Imm gran abs 0.17(H) 0.00 - 0.10 K/cumm [facility] Lymphocyte abs 1.91 0.80 - 3.30 K/cumm [facility] Monocyte abs 0.65 0.20 - 0.80 K/cumm [facility] Eosinophil abs 0.70(H) 0.00 - 0.50 K/cumm [facility] Basophil abs 0.05 0.00 - 0.10 K/cumm [facility] Neutrophil pct 76.0 % [facility] Comment: Interpretive Data Percent cell count reference ranges are not reported, since discordance with absolute values may lead to misinterpretation of CBC data. Current Interpretive Data was last revised on 2017. Imm gran pct 1.2 % [facility] Comment: Interpretive Data Percent cell count reference ranges are not reported, since discordance with absolute values may lead to misinterpretation of CBC data. Current Interpretive Data was last revised on 2017. Lymphocyte pct 13.2 % [facility] Comment: Interpretive Data Percent cell count reference ranges are not reported, since discordance with absolute values may lead to misinterpretation of CBC data. Current Interpretive Data was last revised on 2017. Monocyte pct 4.5 % [facility] Comment: Interpretive Data Percent cell count reference ranges are not reported, since discordance with absolute values may lead to misinterpretation of CBC data. Current Interpretive Data was last revised on 2017. Eosinophil pct 4.8 % [facility] Comment: Interpretive Data Percent cell count reference ranges are not reported, since discordance with absolute values may lead to misinterpretation of CBC data. Current Interpretive Data was last revised on 2017. Basophil pct 0.3 % [facility]O [facility] Comment: Interpretive Data Percent cell count reference ranges are not reported, since discordance with absolute values may lead to misinterpretation of CBC data. Current Interpretive Data was last revised on 2017. Blood 04/01/2025 10:5 1 PM PSYCHIATRY ADULT PHYSICIAN 04/01/2025 11:10 PM PSYCHIATRY ADULT PHYSICIAN Bola Harris MD LAB BLOOD ORDERABLES F inal Result [facility] [place] [address] * Heparin anti factor Xa activity (04/01/2025 10:51 PM PSYCHIATRY ADULT PHYSICIAN) Anti Factor Xa <0.10 IUnits/mL Comment: Interpretive [...] on 2018. Blood 04/01/2025 10:5 1 PM PSYCHIATRY ADULT PHYSICIAN 04/01/2025 11:02 PM PSYCHIATRY ADULT PHYSICIAN us Aristeo Plunkett Jr., MD LAB BLOOD ORDERABLES F inal Result Performing Organization Address City/[facility]/ZIP Co de Phone Number [facility] [place] [address] * (ABNORMAL) CBC with auto differential (04/01/2025 10:51 PM PSYCHIATRY ADULT PHYSICIAN) Pathologist [facility] WBC 14.47(H) 3.80 - 9.90 K/cumm Hgb 10.1(L) 13.0 - 17.5 g/dL [facility] Hct 30.9(L) 38.9 - 50.3 % [facility] Plt 282 150 - 400 K/cumm [facility] MPV 10.0 9.1 - 12.3 fL [facility] RBC 3.22(L) 4.30 - 5.80 M/cumm [facility] MCV 96.0 81.3 - 96.4 fL [facility] MCH 31.4 27.1 - 33.3 pg [facility] MCHC 32.7 32.3 - 35.7 g/dL [facility] RDW CV 13.1 11.1 - 14.9 % [facility] RDW SD 45.5 35.7 - 48.1 fL [facility] NRBC abs 0.00 0.00 - 0.01 K/cumm [facility] Blood 04/01/2025 10:5 1 PM PSYCHIATRY ADULT PHYSICIAN 04/01/2025 11:10 PM PSYCHIATRY ADULT PHYSICIAN us Bola Harris MD LAB BLOOD ORDERABLES F inal Result Performing Organization Address [facility]/ZIP Co de Phone Number [facility] [place] [address] * aPTT (04/01/2025 10:51 PM PSYCHIATRY ADULT PHYSICIAN) aPTT 28 26 - 38 sec Comment: Interpretive Data Heparin therapeutic range: 66.0 - 100.0 seconds. Range based on correlation with therapeutic heparin activity range of 0.3 - 0.7 Units/mL. Blood 04/01/2025 10:5 1 PM PSYCHIATRY ADULT PHYSICIAN 04/01/2025 11:02 PM PSYCHIATRY ADULT PHYSICIAN Bola Harris MD LAB BLOOD ORDERABLES F inal Result Performing Organization Address [facility] [place] [address] * Protime-INR (04/01/2025 10:51 PM PSYCHIATRY ADULT PHYSICIAN) Pathologist [facility] PT 11.1 10.2 - 13.5 sec INR 0.98 0.90 - 1.20 [facility] Comment: Interpretive data Oral anticoagulant therapeutic ranges: Venous thromboembolism prophylaxis or treatment: 2.0-3.0 CARDIOLOGY Standard range: 2.0-3.0 High-intensity range: 2.5-3.5 Refer to indication-specific guidelines for appropriate target ranges for prosthetic heart valve replacement. Current interpretive data was last revised on 2019. Blood 04/01/2025 10:5 1 PM PSYCHIATRY ADULT PHYSICIAN 04/01/2025 11:02 PM PSYCHIATRY ADULT PHYSICIAN Bola Harris MD LAB BLOOD ORDERABLES F inal Result Performing Organization Address [facility] [place] [address] * Type and screen (04/01/2025 10:51 PM PSYCHIATRY ADULT PHYSICIAN) Pathologist [facility] ABO Rh O Positive Todd, indirect Negative [facility] Blood 04/01/2025 10:5 1 PM PSYCHIATRY ADULT PHYSICIAN 04/01/2025 11:22 PM PSYCHIATRY ADULT PHYSICIAN Narrative [facility] - 04/02/2025 12:12 AM PSYCHIATRY ADULT PHYSICIAN Has the patient had Daratumumab or Isatuximab in the past 6 months?->Unknown Bola Harris MD LAB BLOOD BANK TEST OR DERABLES Final Result [facility] [place] [address] * (ABNORMAL) Comprehensive metabolic panel (04/01/2025 10:51 PM PSYCHIATRY ADULT PHYSICIAN) Sodium 144 135 - 145 mmol/L Potassium, pl 4.3 3.3 - 4.9 mmol/L [facility] Chloride 101 97 - 110 mmol/L [facility] CO2 34(H) 22 - 32 mmol/L [facility] Anion gap 9 2 - 15 mmol/L [facility] BUN 19 6 - 25 mg/dL [facility] Creatinine 1.21 0.80 - 1.30 mg/dL [facility] Glucose 145 70 - 199 mg/dL [facility] Comment: Interpretive Data Fasting glucose >/= 126 [...] 2022. Calcium 9.0 8.5 - 10.3 mg/[facility] Bilirubin, total 1.0 0.1 - 1.2 mg/dL [facility] Protein, pl 6.6 6.5 - 8.5 g/dL [facility] Albumin 4.1 3.5 - 5.0 g/dL [facility] Alk phos 86 40 - 130 Units/L [facility] ALT 17 7 - 55 Units/L [facility] AST 22 10 - 50 Units/L [facility] Blood 04/01/2025 10:5 1 PM PSYCHIATRY ADULT PHYSICIAN 04/01/2025 11:10 PM PSYCHIATRY ADULT PHYSICIAN Bola Harris MD LAB BLOOD ORDERABLES F inal Result [facility] [place] [address] from Last 3 Months Insurance MEDICARE [facility] Address: [facility] [id number] [place] [address] [employer] Directives For more information, please contact: [phone] * LIMITED - No CPR (Latest Code Status on File) Date Activated Date Inactivated Comments 04/02/2025 6:02 AM Question Answer Comments Provide aggressive medical m anagement before a full cardiopulmonary arrest occurs. Use antibiotics, IV Fluids, and medical treatment unless specifically selected below: No intubation * Full Code Date Activated Date Inactivated Comments 04/02/2025 5:10 AM 04/02/2025 6:02 AM Care Teams Naval Architect Relationship Specialty Start Date End Date Jayjay Fernandes MD [address] [place] [address] PCP - General Family Medicine 04/01/25
--- OUTSIDE RECORDS SUMMARY | 2025-04-07 00:43 | XMS_ITS | Clinical Summary ---
Author Organization [facility] Address [address] [place] [address] Care Team Providers Care Hotel Dining Room Cashier Name Role Phone Jamie Grande MD Unavailable Jayjay Fernandes MD Primary Care Provider [phone] Samia Bautista PA-C Unavailable [phone] Luis Alberto Spears MD Unavailable [phone] Allergies Active Allergy Reactions Criticality Noted Date Comments Alendronate Shortness of Breath High 06/14/2019 alendronate sodium Doxycycline Unknown 08/04/2013 Fluticasone Unknown 06/10/2022 fluticasone propionate Latex Unknown 03/14/2016 Penicillins Unknown 03/14/2016 Tramadol Unknown 08/04/2013 Medications ALPRAZolam 0.25 MG tablet 2 (two) times a day. 6 Active atorvastatin 40 MG tablet 1 tablet (40 mg total) nightly. 6 Active COMBIVENT RESPIMAT 20-100 MCG/ACT inhaler 6 Active tamsulosin (FLOMAX) 0.4 MG Cap Take 2 tablets by mouth daily. 6 Active nitroglycerin 0.[address] 1 tablet (0.4 mg total) under the tongue every 5 (five) minutes as needed for Chest Pain. 25 tablet 1 8 Active guaifenesin 100 MG/5ML solution Take 10 mLs (200 mg total) by mouth every 4 (four) hours as needed for Cough. Active aspirin 81 MG chewable tablet Chew 1 tablet (81 mg total) by mouth daily. 30 tablet 12 8 Active Coenzyme Q10 200 MG Cap Take by mouth nightly at bedtime. Active carvedilol 3.125 MG tablet Take 1 tablet (3.125 mg total) by mouth 2 (two) times daily. 0 Active vitamin B-12 (CYANOCOBALAMIN ) 1000 mcg tablet Take 1 tablet (1,000 mcg total) by mouth daily. Active PERFOROMIST 20 MCG/2ML nebulizer solution 0 Active calcium carbonate (OS-DARIO) 600 MG tablet Take 1 tablet (600 mg total) by mouth daily. Active budesonide 0.25 MG/2ML nebulizer solution 1 Active sertraline 50 MG tablet Take by mouth 2 (two) times a day. 1 Active famotidine (PEPCID) 20 MG tablet Take 1 tablet (20 mg total) by mouth 2 (two) times daily. Active albuterol (ACCUNEB) 1.25 MG/3ML nebulizer solution Take 3 mLs (1.25 mg total) by nebulization 3 (three) times daily as needed for Shortness of breath. 720 mL 4 Active furosemide (LASIX) 40 MG tablet Take 1 tablet (40 mg total) by mouth 2 (two) times daily. And PRN 4 Active ammonium lactate (LAC-HYDRIN) 12 % lotion Apply topically as needed for Dry skin. Active Cholecalciferol 100 MCG (4000 UT) Tab Active finasteride (PROSCAR) 5 MG tablet Take 1 tablet (5 mg total) by mouth daily. Active montelukast (SINGULAIR) 10 MG tablet Take 1 tablet (10 mg total) by mouth nightly at bedtime. Active mupirocin (BACTROBAN) 2 % cream Apply topically 3 (three) times daily. Active Active Problems Problem Noted Date Diagnosed Date Ischemic cardiomyopathy 10/08/2023 Bilateral carotid artery stenosis 03/21/2022 Overview (03/21/2022): November 2021 - 70-75% right 45-50%left Shortness of breath 10/22/2021 Smoking 04/08/2018 GI bleed 02/17/2018 Chest pain of uncertain etiology 01/14/2018 History of myocardial infarction 01/14/2018 S/P angioplasty with stent 01/14/2018 CHF (congestive heart failure) 01/14/2018 Abdominal aortic aneurysm (AAA) without rupture 01/14/2018 Overview (03/21/2022): 3.3 cm fusiform joseph mid abd aorta aneurysm - 03-16-2021 COPD (chronic obstructive pulmonary disease) 04/2018 Hypertension ICD (implantable cardioverte r-defibrillator), single, in situ Overview (03/14/2016): [employer] VR [id number] implanted on 08/23/15 Hyperlipidemia LV dysfunction CAD (coronary artery disease) Aortic valve disorder Overview (03/14/2016): calcified without stenosis VT (ventricular tachycardia) Overview (03/14/2016): by report CVA (cerebral vascular accident) Overview (03/14/2016): h/o Resolved Problems Problem Noted Date Diagnosed Date Resolved Date History of GI bleed 04/08/2018 04/08/20 18 Ischemic cardiomyopathy 07/03 Encounters Date Type Department Care Team Description 02/24/2025 Telephone [facility] [address] [place] [address] Ledy Swenson ANP- Problem (Pt ) 02/02/2025 1:00 AM CDT Allied Health/Nurse Visit [facility] [address] [place] [address] Jamie Grande MD Rajagopalan, Bharath, MD from Last 3 Months Family History Medical History Relation Comments Heart Disease Neg Hx Social History Tobacco Use Types Packs/Day Years Used Date Smoking Tobacco: Former Cigarettes Q uit: 2017 Smokeless Tobacco: Never Tobacco Cessation:Counseling Given: Not Answered Alcohol Use Standard Drinks/Week Comments Yes 0 (1 standard drink = 0.6 oz pur e alcohol) Wine 3-4 daily, vodka, gin. Sex and Gender Information Value Date Recorded Sex Assigned at Male 06/25/2024 7:37 PM MARKETING WRITER Legal Sex Male 11:27 PM CDT Gender Identity Not on file Sexual Orientation Not on file Last Filed Vital Signs Vital Sign Reading Time Taken Comments Blood Pressure 99/51 10/27/2024 12:14 PM CDT Pulse 64 10/27/2024 12:14 PM CDT Temperature 36.7 C (98 F) 06/26/2024 12:40 AM MARKETING WRITER Respiratory Rate 24 06/26/2024 12:40 AM MARKETING WRITER Oxygen Saturation 95% 10/27/2024 12:14 PM CDT 3L O2 Inhaled Oxygen Concentration - - Weight 67.6 kg (149 lb) 10/27/2024 12:14 PM CDT Height 180.3 cm (5' 11) 10/27/2024 12:14 PM CDT Body Mass Index 20.78 10/27/2024 12:14 PM CDT Plan of Treatment Upcoming Encounters Date Type Department Care Team (Late st Contact Info) Description 05/13/2025 1:45 AM MARKETING WRITER Allied Health/Nurse Visit [facility] [address] [place] [address] Jamie Grande MD [address] [place] [address] 10/26/2025 10:45 AM CDT Office Visit [facility] [address] [place] [address] Luis Alberto Spears MD [address] [place] [address] 10/26/2025 10:45 AM CDT Allied Health/Nurse Visit [facility] [address] [place] [address] Luis Alberto Spears MD [address] [place] [address] Health Maintenance Due Date Last Done Comments ASCVD Statin 1941 DTaP, Tdap and Td Vaccines (1 - Tdap) 1960 Zoster Vaccines (1 of 2) 1991 Annual Medicare Wellness Visit 2006 ASCVD LDL 07/31/2013 07/31/2012 RSV Immunization or 60+ Years (1 - 1-dose 75+ series) 2016 COVID-19 Vaccine ( season) 2025 05/16/2022, 04/09/2021, 08/18/2020, Additional history exists Influenza Adult (#1) 2025 12/28/2019, 02/01/2019, 01/15/2018, Additional history exists Pneumococcal Vaccine: 50+ Years Completed 01/28/2017, 02/08/2015, 08/25/2014, Additional history exists Hepatitis A Vaccines Aged Out No long er eligible based on patient's age to complete this topic Meningococcal B Vaccine Aged Out No l onger eligible based on patient's age to complete this topic Meningococcal Vaccine Aged Out No fazal isatu eligible based on patient's age to complete this topic RSV Immunizations Under 20 Months Aged Out No longer eligible based on patient's age to complete this topic Medical Devices Implanted Type Area Journeyman Mechanic Device Identifier Shelf Expiration Date Model / Serial / Lot Sjm Sc Icd Implanted:08/04 by Jamie Grande MD (Quantity not on file) ICD [employer] - DIV [employer] E[employer] VR [id number] / [id number] / Procedures Procedure Name Priority Date/Time Associated Diagnosis Comments LIPID PANEL Routine 07/31/2012 7:09 AM CDT from Last 3 Months or Most Recently Relevant to Health Maintenance Results * LIPID PANEL (07/31/2012 7:09 AM CDT) TRIGLYCERIDES 52 0 - 150 mg/dl [employer] TO EPIC CONVERSION CHOLESTEROL 129 0 - 200 mg/dl [employer] TO EPIC CONVERSION HDL 42 40 - 59 mg/dl [employer] TO EPIC CONVERSION LDL CONVERSION 77 0 - 100 mg/dl [employer] TO EPIC CONVERSION 07/31/2012 7:09 AM CDT 07/31/2012 7:09 AM CDT us Generic Conversion [facility] Final R esult [facility] TO EPIC CONVERSION from Last 3 Months or Most Recently Relevant to Health Maintenance Insurance [employer] MEDICARE MEDICARE Advance Directives * DNR (Latest Code Status on File) Date Activated Date Inactivated Comments 02/17/2018 8:33 PM 02/26/2018 8:04 PM * Full Code Date Activated Date Inactivated Comments 02/17/2018 7:51 PM 02/17/2018 8:33 PM Care Teams Hotel Dining Room Cashier Relationship Specialty Start Date End Date Jayjay Fernandes MD [address] [place] [address] PCP - General FAMILY PRACTICE 04/03/17 Jamie Grande MD [address] [place] [phone] CARDIOVASCULAR DISEASE 03/13/16 Samia Bautista PA-C [address] [place] [address] Referring Physician PHYSICIAN SENIOR ACCOUNTING ANALYST 09/15/24 Luis Alebrto Spears MD [address] [place] [address] Consulting Physician CLINICAL CARDIAC ELECTROPHYSIOLOGY 09/15/24
[2025-04-07 05:42] LABS: Hematocrit 22.5 % (37.0-46.0); Hemoglobin 7.0 g/dL (12.4-15.3); Mean Corpuscular HGB Conc 31.1 g/dL (32-36); Mean Corpuscular Hemoglobin 31.7 pg (27.0-31.0); Mean Corpuscular Volume 101.8 fL (78.0-102.0); Platelet Count Result 230 K/mm3 (150-420); Red Blood Count 2.21 M/mm3 (4.70-6.10); White Blood Count 13.4 K/mm3 (4.8-10.8)
[2025-04-07 07:03] LABS: Alanine Aminotransferase 16 U/L (6-50); Albumin Level 3.3 g/dL (3.5-5.1); Alkaline Phosphatase 88 U/L (38-126); Anion Gap 4.99999 mmol/L (4-12); Aspartate Amino Transferase 27 U/L (17-59); Bilirubin,Total 1.1 mg/dL (0.2-1.3); Blood Urea Nitrogen 23 mg/dL (9-20); Calcium 8.4 mg/dL (8.4-10.2); Carbon Dioxide > 40 mmol/L (22-30); Chloride 91 mmol/L (98-107); Estimated CRCL calculation 36 ml/min; Estimated Glomerular Filt Rate 57; Glucose 99 mg/dL (65-110); Magnesium 2.1 mg/dL (1.6-2.3); Osmolality Calculated 285 mOsm/kg (285-295); Potassium 3.7 mmol/L (3.4-5.0); Sodium 136 mmol/L (137-145); Total Protein 5.3 g/dL (6.3-8.2)
--- OUTSIDE RECORDS SUMMARY | 2025-04-07 07:09 | XMS_ITS | Clinical Summary ---
Author Organization [facility] Address [address] [place] [address] Care Team Providers Care Jig Maker Name Role Phone Jayjay Fernandes MD Primary Care Provider [phone] Allergies No known active allergies Medications ALPRAZolam [...] 04/05/2025 Assessment & Plan (04/06/2025 10:50 AM STATEMENT CLERK): - Cont home finasteride and flomax. - New urinary retention on 04/05, with discomfort. Bladder scan 600+. Persistent retention after straight cath - Malone placed last night - Will likely need repeat void trial at rehab Assessment & Plan (04/05/2025 3:48 PM STATEMENT CLERK): - Cont home finasteride and flomax. - New urinary retention on 04/05, with discomfort. Bladder scan 600+ - Bladder scan/ Straight cath q4 PRN Lower GI bleed 04/03/2025 Assessment & Plan (04/06/2025 10:50 AM STATEMENT CLERK): Patient presented with recurrent painless hematochezia. Has had this issue since almost 2019. Last eval was with sigmoidoscopy in Jun this year but prep was sub optimal however no active bleeding was seen. Was also recently admitted at OSH (no scopes or transfusions over there) and discharged few days before presenting to [facility]. Last colonoscopy was 2018. He [...] CTA Assessment & Plan (04/05/2025 3:48 PM STATEMENT CLERK): Patient presented with recurrent painless hematochezia. Has had this issue since almost 2018. Last eval was with sigmoidoscopy in Jun this year but prep was sub optimal however no active bleeding was seen. Was also recently admitted at OSH (no scopes or transfusions over there) and discharged few days before presenting to [facility]. Last colonoscopy was 2018. He [...] CTA Assessment & Plan (2025 12:16 PM STATEMENT CLERK): Patient presented with recurrent painless hematochezia. Has had this issue since almost 2018. Last eval was with sigmoidoscopy in jun this year but prep was sub optimal however no active bleeding was seen. Was also recently admitted at OSH (no scopes or transfusions over there) and discharged few days before presenting to [facility]. Last colonoscopy was 2017. He [...] CTA Assessment & Plan (04/03/2025 12:17 PM STATEMENT CLERK): Patient presented with recurrent painless hematochezia. Has had this issue since almost 2018. Last eval was with sigmoidoscopy in jun this year but prep was sub optimal however no active bleeding was seen. Was also recently admitted at OSH (no scopes or transfusions over there) and discharged few days before presenting to [facility]. Last colonoscopy was 2017. He [...] 04/03/2025 Assessment & Plan (04/06/2025 10:50 AM STATEMENT CLERK): Patient presented with recurrent painless hematochezia. Has had this issue since almost 2018. Last eval was with sigmoidoscopy in Jun this year but prep was sub optimal however no active bleeding was seen. Was also recently admitted at OSH (no scopes or transfusions over there) and discharged few days before presenting to [facility]. Last colonoscopy was 2017. He [...] CTA Assessment & Plan (04/05/2025 3:48 PM STATEMENT CLERK): Patient presented with recurrent painless hematochezia. Has had this issue since almost 2018. Last eval was with sigmoidoscopy in Jun this year but prep was sub optimal however no active bleeding was seen. Was also recently admitted at OSH (no scopes or transfusions over there) and discharged few days before presenting to [facility]. Last colonoscopy was 2017. He [...] CTA Assessment & Plan (2025 12:16 PM STATEMENT CLERK): Patient presented with recurrent painless hematochezia. Has had this issue since almost 2018. Last eval was with sigmoidoscopy in jun this year but prep was sub optimal however no active bleeding was seen. Was also recently admitted at OSH (no scopes or transfusions over there) and discharged few days before presenting to [facility]. Last colonoscopy was 2017. He [...] CTA Assessment & Plan (04/03/2025 12:17 PM STATEMENT CLERK): Patient presented with recurrent painless hematochezia. Has had this issue since almost 2018. Last eval was with sigmoidoscopy in jun this year but prep was sub optimal however no active bleeding was seen. Was also recently admitted at OSH (no scopes or transfusions over there) and discharged few days before presenting to [facility]. Last colonoscopy was 2017. He [...] 04/03/2025 Assessment & Plan (04/06/2025 10:50 AM STATEMENT CLERK): - S/p CABG and ICD. Cont home asa and statin. Assessment & Plan (04/05/2025 3:48 PM STATEMENT CLERK): - S/p CABG and ICD. Cont home asa and statin. Assessment & Plan (2025 12:16 PM STATEMENT CLERK): S/p CABG and ICD. Cont home asa and statin Assessment & Plan (04/03/2025 12:17 PM STATEMENT CLERK): S/p CABG and ICD. Cont home asa and statin History of COPD 04/03/2025 Assessment & Plan (04/06/2025 10:50 AM STATEMENT CLERK): On 3 L O2 at baseline. No [...] discharge. Assessment & Plan (04/05/2025 3:48 PM STATEMENT CLERK): On 3 L O2 at baseline. No [...] discharge. Assessment & Plan (2025 12:16 PM STATEMENT CLERK): On 3 L o2 at baseline. No [...] discharge. Assessment & Plan (04/03/2025 12:17 PM STATEMENT CLERK): On 3 L o2 at baseline. No [...] 04/03/2025 Assessment & Plan (04/06/2025 10:50 AM STATEMENT CLERK): - Cont home finasteride and flomax. - New urinary retention on 04/05, with discomfort. Bladder scan 600+. Persistent retention after straight cath - Malone placed last night - Will likely need repeat void trial at rehab Assessment & Plan (04/05/2025 3:48 PM STATEMENT CLERK): - Cont home finasteride and flomax. - New urinary retention on 04/05, with discomfort. Bladder scan 600+ - Bladder scan/ Straight cath q4 PRN Assessment & Plan (2025 12:16 PM STATEMENT CLERK): Cont home finasteride and flomax Assessment & Plan (04/03/2025 12:17 PM STATEMENT CLERK): Cont home finasteride and flomax Chronic dyspnea, improved 04/03/2025 Assessment & Plan (04/06/2025 10:50 AM STATEMENT CLERK): On 3 L O2 at baseline. No [...] discharge. Assessment & Plan (04/05/2025 3:48 PM STATEMENT CLERK): On 3 L O2 at baseline. No [...] discharge. Assessment & Plan (2025 12:16 PM STATEMENT CLERK): On 3 L o2 at baseline. No [...] discharge. Assessment & Plan (04/03/2025 12:17 PM STATEMENT CLERK): On 3 L o2 at baseline. No [...] 04/02/2025 Assessment & Plan (04/06/2025 10:50 AM STATEMENT CLERK): Patient presented with recurrent painless hematochezia. Has had this issue since almost 2018. Last eval was with sigmoidoscopy in Jun this year but prep was sub optimal however no active bleeding was seen. Was also recently admitted at OSH (no scopes or transfusions over there) and discharged few days before presenting to [facility]. Last colonoscopy was 2017. He [...] CTA Assessment & Plan (04/05/2025 3:48 PM STATEMENT CLERK): Patient presented with recurrent painless hematochezia. Has had this issue since almost 2018. Last eval was with sigmoidoscopy in Jun this year but prep was sub optimal however no active bleeding was seen. Was also recently admitted at OSH (no scopes or transfusions over there) and discharged few days before presenting to [facility]. Last colonoscopy was 2017. He [...] CTA Assessment & Plan (2025 12:16 PM STATEMENT CLERK): Patient presented with recurrent painless hematochezia. Has had this issue since almost 2018. Last eval was with sigmoidoscopy in jun this year but prep was sub optimal however no active bleeding was seen. Was also recently admitted at OSH (no scopes or transfusions over there) and discharged few days before presenting to [facility]. Last colonoscopy was 2017. He [...] CTA Assessment & Plan (04/03/2025 12:17 PM STATEMENT CLERK): Patient presented with recurrent painless hematochezia. Has had this issue since almost 2018. Last eval was with sigmoidoscopy in jun this year but prep was sub optimal however no active bleeding was seen. Was also recently admitted at OSH (no scopes or transfusions over there) and discharged few days before presenting to [facility]. Last colonoscopy was 2017. He [...] CTA Assessment & Plan (04/02/2025 6:17 AM STATEMENT CLERK): Melena + BRBPR. - recurrent GIB since 2018. Hospitalized this year 07/2024 (flex sig done but no active bleeding) and 4 days prior at [facility] (records not available but no transfusions or [...] 04/02/2025 Assessment & Plan (04/06/2025 10:50 AM STATEMENT CLERK): OSH TTE 07/2024 w/ EF 35-40%. Home [...] trend Assessment & Plan (04/05/2025 3:48 PM STATEMENT CLERK): OSH TTE 07/2024 w/ EF 35-40%. Home [...] trend Assessment & Plan (2025 12:16 PM STATEMENT CLERK): OSH TTE 07/2024 w/ EF 35-40%. Home [...] trend Assessment & Plan (04/03/2025 12:17 PM STATEMENT CLERK): OSH TTE 07/2024 w/ EF 35-40%. Home meds include coreg and lasix 40 bid. Appears euvolumic without signs of exacerbation. CXR on 04/02 without edema. 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 Assessment & Plan (04/05/2025 3:48 PM STATEMENT CLERK): - Resuming home xanax and zoloft. Assessment & Plan (2025 12:16 PM STATEMENT CLERK): Resuming home xanax and zoloft Assessment & Plan (04/03/2025 12:17 PM STATEMENT CLERK): Resuming home xanax and zoloft Assessment & Plan (04/02/2025 6:17 AM STATEMENT CLERK): Xanax prn nightly Chronic respiratory failure with hypoxia 025 Assessment & Plan (04/06/2025 10:50 AM STATEMENT CLERK): On 3 L O2 at baseline. No [...] discharge. Assessment & Plan (04/05/2025 3:48 PM STATEMENT CLERK): On 3 L O2 at baseline. No [...] discharge. Assessment & Plan (2025 12:16 PM STATEMENT CLERK): On 3 L o2 at baseline. No [...] discharge. Assessment & Plan (04/03/2025 12:17 PM STATEMENT CLERK): On 3 L o2 at baseline. No [...] dyspnea Assessment & Plan (04/02/2025 6:17 AM STATEMENT CLERK): From COPD, on 3L O2 - only on albuterol at home Plan: - duonebs prn Goals of care, counseling/discussion 04/02/2025 Assessment & Plan (04/06/2025 10:50 AM STATEMENT CLERK): No family members so POA is friendWeiell . - Code status was confirmed to be DNR/DNI on 04/02 by admitting physician Assessment & Plan (04/05/2025 3:48 PM STATEMENT CLERK): No family members so POA is friendWeiell . - Code status was confirmed to be DNR/DNI on 04/02 by admitting physician Assessment & Plan (2025 12:16 PM STATEMENT CLERK): No family members so POA = Friend Wei Tejada [phone]. Code status was confirmed to be DNRDNI on 04/02 by admitting physician Assessment & Plan (04/03/2025 12:17 PM STATEMENT CLERK): No family members so POA = Friend Wei Tejada [phone] - confirmed DNRDNI on 04/02 Assessment & Plan (04/02/2025 6:17 AM STATEMENT CLERK): No family members so POA = Friend Wei Tejada [phone] - confirmed DNRDNI on 04/02 History of CAD (coronary artery disease) 025 Assessment & Plan (04/06/2025 10:50 AM STATEMENT CLERK): - S/p CABG and ICD. Cont home asa and statin. Assessment & Plan (04/05/2025 3:48 PM STATEMENT CLERK): - S/p CABG and ICD. Cont home asa and statin. Assessment & Plan (2025 12:16 PM STATEMENT CLERK): S/p CABG and ICD. Cont home asa and statin Assessment & Plan (04/03/2025 12:17 PM STATEMENT CLERK): S/p CABG and ICD. Cont home asa and statin Assessment & Plan (04/02/2025 6:17 AM STATEMENT CLERK): S/p CABG - statin - hold ASA Primary hypertension 02/25/2020 Assessment & Plan (04/02/2025 6:17 AM STATEMENT CLERK): Hold antihypertensives d/t GIB Resolved Problems Problem Noted Date Diagnosed Date Resolved Date FELICITY (acute kidney injury) 04/02/2025 Assessment & Plan (04/03/2025 12:17 PM STATEMENT CLERK): Cr at baseline Assessment & Plan (04/02/2025 6:17 AM STATEMENT CLERK): Cr 1.2 (Cr 0.9 in 07/2024) - likely pre-renal. No signs of heart failure to suggest cardiorenal Plan: - may need a bit of fluids Encounters Date Type Department Care Team Description 04/01/2025 10:17 PM STATEMENT CLERK - 04/06/2025 10:33 PM STATEMENT CLERK Hospital Encounter [facility] [address] [place] [address] Aristeo Plunkett Jr., MD [place], [place], [...] on file Legal Sex Male 9:52 PM STATEMENT CLERK Gender Identity Not on file Sexual Orientation Not on file Last Filed Vital Signs Vital Sign Reading Time Taken Comments Blood Pressure 148/61 04/06/2025 7:46 PM STATEMENT CLERK Pulse 102 04/06/2025 9:05 PM STATEMENT CLERK Temperature 36.8 C (98.2 F) 04/06/2025 7:46 PM STATEMENT CLERK Respiratory Rate 18 04/06/2025 9:05 PM STATEMENT CLERK Oxygen Saturation 95% 04/06/2025 9:05 PM STATEMENT CLERK Inhaled Oxygen Concentration - - Weight 63.5 kg (140 lb 1.6 oz) 04/03/2025 1:35 P M STATEMENT CLERK Height - - Body Mass Index - [...] URINALYSIS, MICROSCOPIC ONLY Routine 04/06/2025 9:17 AM STATEMENT CLERK URINALYSIS AND REFLEX TO MICROSCOPIC AND CULTURE Routine 04/06/2025 9:17 AM STATEMENT CLERK CBC WITHOUT DIFFERENTIAL Timed 04/06/2025 8:59 AM STATEMENT CLERK MAGNESIUM Routine 04/05/2025 11:51 PM STATEMENT CLERK EGFR Routine 04/05/2025 11:51 PM STATEMENT CLERK BASIC METABOLIC PANEL Routine 04/05/2025 11:51 PM STATEMENT CLERK CBC WITHOUT DIFFERENTIAL Timed 04/05/2025 11:51 PM STATEMENT CLERK POCT GLUCOSE DEVICE Routine 04/05/2025 8 :36 AM STATEMENT CLERK CBC WITHOUT DIFFERENTIAL Timed 04/05/2025 6:59 AM STATEMENT CLERK EGFR Routine 2025 9:00 PM STATEMENT CLERK TYPE AND SCREEN Timed 2025 9:00 PM STATEMENT CLERK BASIC METABOLIC PANEL Routine 2025 9:00 PM STATEMENT CLERK CBC WITHOUT DIFFERENTIAL Timed 2025 9:00 PM STATEMENT CLERK CBC WITHOUT DIFFERENTIAL Timed 2025 9:49 AM STATEMENT CLERK IRON PROFILE W/ IBC Routine 04/03/2025 8 :22 PM STATEMENT CLERK FERRITIN Routine 04/03/2025 8:22 PM STATEMENT CLERK EGFR Routine 04/03/2025 8:22 PM STATEMENT CLERK BASIC METABOLIC PANEL Routine 04/03/2025 8:22 PM STATEMENT CLERK CBC WITHOUT DIFFERENTIAL Timed 04/03/2025 8:22 PM STATEMENT CLERK CBC WITHOUT DIFFERENTIAL Routine 04/03/2025 4:01 AM STATEMENT CLERK EGFR Routine 04/02/2025 7:30 PM STATEMENT CLERK CBC WITHOUT DIFFERENTIAL Timed 04/02/2025 7:30 PM STATEMENT CLERK BASIC METABOLIC PANEL Routine 04/02/2025 7:30 PM STATEMENT CLERK CBC WITHOUT DIFFERENTIAL Timed 04/02/2025 7:30 PM STATEMENT CLERK EGFR Timed 04/02/2025 1:23 PM STATEMENT CLERK CBC WITHOUT DIFFERENTIAL Timed 04/02/2025 1:23 PM STATEMENT CLERK BASIC METABOLIC PANEL Timed 04/02/2025 1:23 PM STATEMENT CLERK XR CHEST 1 VIEW ED Urgent/IP Urgent 04/02/2025 10:17 AM STATEMENT CLERK CBC WITHOUT DIFFERENTIAL STAT 04/02/2025 6:14 AM STATEMENT CLERK ECG 12-LEAD Routine 04/02/2025 3:30 AM STATEMENT CLERK CBC WITHOUT DIFFERENTIAL Timed 04/02/2025 3:10 AM STATEMENT CLERK TROPONIN I HIGH-SENSITIVITY 2-HOUR Timed 04/02/2025 3:10 AM STATEMENT CLERK BLOOD GAS, VENOUS STAT 04/02/2025 1:3 4 AM STATEMENT CLERK TROPONIN I HIGH-SENSITIVITY SERIES (BASELINE, 2HR, 4HR, 6HR) STAT 04/02/2025 1:11 AM STATEMENT CLERK PRO B-TYPE NATRIURETIC PEPTIDE STAT 04/02/2025 1:10 AM STATEMENT CLERK B CHECK SAMPLE STAT 04/02/2025 12:[address] ABDOMEN PELVIS W WO CONTRAST ED Urgent/IP Urgent 04/02/2025 12:37 AM STATEMENT CLERK POCT CREATININE - DEVICE Routine 04/01/2025 11:42 PM STATEMENT CLERK HEPARIN ANTI FACTOR XA ACTIVITY STAT 04/01/2025 10:51 PM STATEMENT CLERK EGFR STAT 04/01/2025 10:51 PM STATEMENT CLERK DIFFERENTIAL AUTO STAT 04/01/2025 10: 51 PM STATEMENT CLERK TYPE AND SCREEN STAT 04/01/2025 10:51 PM STATEMENT CLERK APTT STAT 04/01/2025 10:51 PM STATEMENT CLERK PROTIME-INR STAT 04/01/2025 10:51 PM STATEMENT CLERK COMPREHENSIVE METABOLIC PANEL STAT 04/01/2025 10:51 PM STATEMENT CLERK CBC WITH AUTO DIFFERENTIAL STAT 04/01/2025 10:51 PM STATEMENT CLERK from Last 3 Months Results * (ABNORMAL) Urinalysis reflex to microscopic and culture Urine (04/06/2025 9:17 AM STATEMENT CLERK) Color, ur Cristina Yellow Clarity, ur Cloudy(A) Clear [facility] Specific gravity, ur 1.019 1.003 - 1.030 [facility] pH, urine 5.5 [facility] Comment: Interpretive Data U rine pH is affected by diet, medications, systemic acid-base disturbances, and renal tubular function. pH may affect urinary stone formation. For example, urine pH below 6.0 may help reduce the tendency for calcium phosphate stones and pH greater than 6.0 may reduce the tendency for uric acid stone formation. Source: [facility] Current Interpretive Data was last revised on 2017 Protein, ur ql 1+(A) Negative [facility] Glucose, ur ql Negative Negative [facility] Ketones, ur Negative Negative [facility] Bilirubin, ur Negative Negative [facility] Blood, ur 3+(A) Negative [facility] Urobilinogen, ur <2.0 <2.0 mg/dL [facility] Nitrite, ur Negative Negative [facility] Leukocyte esterase, ur 3+(A) Negative [facility] UA reflex comment Reflex to microscopic UA will be performed. [facility] Urine 04/06/2025 9:17 AM STATEMENT CLERK 04/06/2025 9:48 AM STATEMENT CLERK Kathryn JALLOH LAB MICROBIOLOGY - NERAL ORDERABLES Final Result Performing Organization Address [facility] Co de Phone Number [facility] Department [place] [address] * (ABNORMAL) Urinalysis, microscopic only (04/06/2025 9:17 AM STATEMENT CLERK) WBC, ur >50(A) 0 - 5 /HPF RBC, ur >50(A) 0 - 2 /HPF [facility] Epithelial cells, squamous, ur 1-5 0 - 5 /HPF [facility] Bacteria, ur 1+(A) [facility] Mucous, ur Present(A) [facility] Hyaline casts, ur 6-10 0 - 10 /LPF [facility] Culture Reflex Comment Reflex to urine culture will be performed. [facility] Urine 04/06/2025 9:17 AM STATEMENT CLERK 04/06/2025 9:48 AM STATEMENT CLERK Kathryn JALLOH LAB URINE ORDERABLES Final Result Performing Organization Address [facility]/ZIP Co de Phone Number [facility] Department [place] [address] * (ABNORMAL) CBC without differential (04/06/2025 8:59 AM STATEMENT CLERK) [facility] WBC 15.79(H) 3.80 - 9.90 K/cumm Hgb 8.0(L) 13.0 - 17.5 g/dL [facility] Hct 24.6(L) 38.9 - 50.3 % [facility] Plt 293 150 - 400 K/cumm [facility] MPV 9.9 9.1 - 12.3 fL [facility] RBC 2.50(L) 4.30 - 5.80 M/cumm [facility] MCV 98.4(H) 81.3 - 96.4 fL [facility] MCH 32.0 27.1 - 33.3 pg [facility] MCHC 32.5 32.3 - 35.7 g/dL [facility] RDW CV 14.4 11.1 - 14.9 % [facility] RDW SD 49.0(H) 35.7 - 48.1 fL [facility] NRBC abs 0.00 0.00 - 0.01 K/cumm [facility] Blood 04/06/2025 8:59 AM STATEMENT CLERK 04/06/2025 9:43 AM STATEMENT CLERK Jennifer Burris MD LAB BLOOD ORDERABLES Final Re sult Performing Organization Address [facility] Co de Phone Number [facility] Department [place] [address] * eGFR (04/05/2025 11:51 PM STATEMENT CLERK) [facility] eGFR 68 >=60 mL/min/1. 73 [...] reviewed 2021. Blood 04/05/2025 11:5 1 PM STATEMENT CLERK 04/06/2025 12:43 AM STATEMENT CLERK us Jennifer Burris MD LAB BLOOD ORDERABLES Final Re sult [facility] Department [place] [address] * (ABNORMAL) CBC without differential (04/05/2025 11:51 PM STATEMENT CLERK) WBC 9.47 3.80 - 9.90 K/cumm Hgb 7.1(L) 13.0 - 17.5 g/dL [facility] Hct 22.7(L) 38.9 - 50.3 % [facility] Plt 241 150 - 400 K/cumm [facility] MPV 10.0 9.1 - 12.3 fL [facility] RBC 2.25(L) 4.30 - 5.80 M/cumm [facility] MCV 100.9(H) 81.3 - 96.4 fL [facility] MCH 31.6 27.1 - 33.3 pg [facility] MCHC 31.3(L) 32.3 - 35.7 g/dL [facility] RDW CV 14.2 11.1 - 14.9 % [facility] RDW SD 51.0(H) 35.7 - 48.1 fL [facility] NRBC abs 0.00 0.00 - 0.01 K/cumm [facility] Blood 04/05/2025 11:5 1 PM STATEMENT CLERK 04/06/2025 12:44 AM STATEMENT CLERK Jennifer Burris MD LAB BLOOD ORDERABLES Final Re sult [facility] [place] [address] * Magnesium (04/05/2025 11:51 PM STATEMENT CLERK) Pathologist [facility] Magnesium 2.0 1.4 - 2.5 mg/dL Blood 04/05/2025 11:5 1 PM STATEMENT CLERK 04/06/2025 12:43 AM STATEMENT CLERK us Suyapa Syed MD LAB BLOOD ORDERABLES Final Resul t Performing Organization Address [facility] de Phone Number [facility] [place] [address] * (ABNORMAL) Basic metabolic panel (04/05/2025 11:51 PM STATEMENT CLERK) Pathologist [facility] Sodium 143 135 - 145 mmol/L Potassium, pl 3.2(L) 3.3 - 4.9 mmol/L [facility] Chloride 98 97 - 110 mmol/L [facility] CO2 38(H) 22 - 32 mmol/L [facility] Anion gap 7 2 - 15 mmol/L [facility] BUN 17 6 - 25 mg/dL [facility] Creatinine 1.08 0.80 - 1.30 mg/dL [facility] Glucose 105 70 - 199 mg/dL [facility] Comment: Interpretive Data Fasting [...] 2022. Calcium 8.1(L) 8.5 - 10.3 mg/dL [facility] Blood 04/05/2025 11:5 1 PM STATEMENT CLERK 04/06/2025 12:43 AM STATEMENT CLERK Jennifer Burris MD LAB BLOOD ORDERABLES Final Re sult Performing Organization Address City/[facility]/ZIP Co de Phone Number [facility] Department [place] [address] * POCT glucose (04/05/2025 8:36 AM STATEMENT CLERK) [facility] Glucose, POC 114 70 - 199 mg/dL Blood 04/05/2025 8:36 AM STATEMENT CLERK 04/05/2025 8:36 AM STATEMENT CLERK Suyapa Syed MD LAB POCT ORDERABLES - DEVICE Fin al Result Performing Organization Address [facility] de Phone Number [facility] Department [place] [address] * (ABNORMAL) CBC without differential (04/05/2025 6:59 AM STATEMENT CLERK) [facility] WBC 14.23(H) 3.80 - 9.90 K/cumm Hgb 7.8(L) 13.0 - 17.5 g/dL [facility] Hct 24.6(L) 38.9 - 50.3 % [facility] Plt 275 150 - 400 K/cumm [facility] MPV 9.7 9.1 - 12.3 fL [facility] RBC 2.50(L) 4.30 - 5.80 M/cumm [facility] MCV 98.4(H) 81.3 - 96.4 fL [facility] MCH 31.2 27.1 - 33.3 pg [facility] MCHC 31.7(L) 32.3 - 35.7 g/dL [facility] RDW CV 13.7 11.1 - 14.9 % [facility] RDW SD 48.4(H) 35.7 - 48.1 fL [facility] NRBC abs 0.00 0.00 - 0.01 K/cumm [facility] Blood 04/05/2025 6:59 AM STATEMENT CLERK 04/05/2025 7:25 AM STATEMENT CLERK us Jennifer Burris MD LAB BLOOD ORDERABLES Final Re sult Performing Organization Address City/[facility] Co de Phone Number [facility] Department [place] [address] * eGFR (2025 9:00 PM STATEMENT CLERK) eGFR 61 >=60 mL/min/1. 73 m2 Comment: [...] last reviewed 2021. Blood 2025 9:00 PM STATEMENT CLERK 2025 9:34 PM STATEMENT CLERK us Jennifer Burris MD LAB BLOOD ORDERABLES Final Re sult Performing Organization Address [facility] Co de Phone Number [facility] Department [place] [address] * (ABNORMAL) CBC without differential (2025 9:00 PM STATEMENT CLERK) WBC 11.25(H) 3.80 - 9.90 K/cumm Hgb 7.5(L) 13.0 - 17.5 g/dL [facility] Hct 24.2(L) 38.9 - 50.3 % [facility] Plt 249 150 - 400 K/cumm [facility] MPV 9.9 9.1 - 12.3 fL [facility] RBC 2.41(L) 4.30 - 5.80 M/cumm [facility] MCV 100.4(H) 81.3 - 96.4 fL [facility] MCH 31.1 27.1 - 33.3 pg [facility] MCHC 31.0(L) 32.3 - 35.7 g/dL [facility] RDW CV 13.6 11.1 - 14.9 % [facility] RDW SD 49.1(H) 35.7 - 48.1 fL [facility] NRBC abs 0.00 0.00 - 0.01 K/cumm [facility] Blood 2025 9:00 PM STATEMENT CLERK 2025 9:33 PM STATEMENT CLERK us Jennifer Burris MD LAB BLOOD ORDERABLES Final Re sult [facility] Department [place] [address] * Type and screen (2025 9:00 PM STATEMENT CLERK) ABO Rh O Positive Todd, indirect Negative [facility] Blood 2025 9:00 PM STATEMENT CLERK 2025 9:50 PM STATEMENT CLERK Narrative [facility] - 2025 11:01 PM STATEMENT CLERK Has the patient had Daratumumab or Isatuximab in the past 6 months?->Unknown us Lida Borja MD PhD LAB BLOOD BANK TEST ORDERAB LES Final Result [facility] Department [place] [address] * (ABNORMAL) Basic metabolic panel (2025 9:00 PM STATEMENT CLERK) Pathologist [facility] Sodium 141 135 - 145 mmol/L Potassium, pl 3.7 3.3 - 4.9 mmol/L [facility] Chloride 99 97 - 110 mmol/L [facility] CO2 37(H) 22 - 32 mmol/L [facility] Anion gap 5 2 - 15 mmol/L [facility] BUN 20 6 - 25 mg/dL [facility] Creatinine 1.18 0.80 - 1.30 mg/dL [facility] Glucose 91 70 - 199 mg/dL [facility] Comment: Interpretive Data Fasting [...] 2022. Calcium 8.8 8.5 - 10.3 mg/dL [facility] Blood 2025 9:00 PM STATEMENT CLERK 2025 9:34 PM STATEMENT CLERK Jennifer Burris MD LAB BLOOD ORDERABLES Final Re sult [facility] Department [place] [address] * (ABNORMAL) CBC without differential (2025 9:49 AM STATEMENT CLERK) Pathologist [facility] WBC 11.45(H) 3.80 - 9.90 K/cumm Hgb 7.9(L) 13.0 - 17.5 g/dL [facility] Hct 24.7(L) 38.9 - 50.3 % [facility] Plt 233 150 - 400 K/cumm [facility] MPV 9.8 9.1 - 12.3 fL [facility] RBC 2.52(L) 4.30 - 5.80 M/cumm [facility] MCV 98.0(H) 81.3 - 96.4 fL [facility] MCH 31.3 27.1 - 33.3 pg [facility] MCHC 32.0(L) 32.3 - 35.7 g/dL [facility] RDW CV 13.7 11.1 - 14.9 % [facility] RDW SD 48.1 35.7 - 48.1 fL [facility] NRBC abs 0.00 0.00 - 0.01 K/cumm [facility] Blood 2025 9:49 AM STATEMENT CLERK 2025 10:50 AM STATEMENT CLERK us Jennifer Burris MD LAB BLOOD ORDERABLES Final Re sult [facility] Department [place] [address] * eGFR (04/03/2025 8:22 PM STATEMENT CLERK) eGFR 72 >=60 mL/min/1. 73 m2 Comment: [...] last reviewed 2021. Blood 04/03/2025 8:22 PM STATEMENT CLERK 04/03/2025 8:46 PM STATEMENT CLERK Jennifer Burris MD LAB BLOOD ORDERABLES Final Re sult [facility] [place] [address] * (ABNORMAL) Iron profile w/ IBC (04/03/2025 8:22 PM STATEMENT CLERK) Pathologist [facility] Iron 40(L) 50 - 150 mcg/dL TIBC 219(L) 250 - 400 mcg/dL [facility] Transferrin saturation 18(L) 20 - 50 % [facility] Blood 04/03/2025 8:22 PM STATEMENT CLERK 04/03/2025 8:46 PM STATEMENT CLERK Jennifer Burris MD LAB BLOOD ORDERABLES Final Re sult Performing Organization Address City/[facility]/[place] [address] * (ABNORMAL) CBC without differential (04/03/2025 8:22 PM STATEMENT CLERK) Pathologist [facility] WBC 12.92(H) 3.80 - 9.90 K/cumm Hgb 8.1(L) 13.0 - 17.5 g/dL [facility] Hct 24.8(L) 38.9 - 50.3 % [facility] Plt 248 150 - 400 K/cumm [facility] MPV 9.9 9.1 - 12.3 fL [facility] RBC 2.55(L) 4.30 - 5.80 M/cumm [facility] MCV 97.3(H) 81.3 - 96.4 fL [facility] MCH 31.8 27.1 - 33.3 pg [facility] MCHC 32.7 32.3 - 35.7 g/dL [facility] RDW CV 13.5 11.1 - 14.9 % [facility] RDW SD 47.3 35.7 - 48.1 fL [facility] NRBC abs 0.00 0.00 - 0.01 K/cumm [facility] Blood 04/03/2025 8:22 PM STATEMENT CLERK 04/03/2025 8:47 PM STATEMENT CLERK Jennifer Burris MD LAB BLOOD ORDERABLES Final Re sult Performing Organization Address City/[facility] Co de Phone Number [facility] [place] [address] * Ferritin (04/03/2025 8:22 PM STATEMENT CLERK) [facility] Ferritin 48 30 - 400 ng/mL Blood 04/03/2025 8:22 PM STATEMENT CLERK 04/03/2025 8:46 PM STATEMENT CLERK Jennifer Burris MD LAB BLOOD ORDERABLES Final Re sult Performing Organization Address [facility] de Phone Number [facility] [place] [address] * (ABNORMAL) Basic metabolic panel (04/03/2025 8:22 PM STATEMENT CLERK) [facility] Sodium 140 135 - 145 mmol/L Potassium, pl 3.9 3.3 - 4.9 mmol/L [facility] Chloride 99 97 - 110 mmol/L [facility] CO2 35(H) 22 - 32 mmol/L [facility] Anion gap 6 2 - 15 mmol/L [facility] BUN 18 6 - 25 mg/dL [facility] Creatinine 1.03 0.80 - 1.30 mg/dL [facility] Glucose 134 70 - 199 mg/dL [facility] Comment: Interpretive Data Fasting [...] 2022. Calcium 8.5 8.5 - 10.3 mg/dL [facility] Blood 04/03/2025 8:22 PM STATEMENT CLERK 04/03/2025 8:46 PM STATEMENT CLERK us Jennifer Burris MD LAB BLOOD ORDERABLES Final Re sult [facility] Department [place] [address] * (ABNORMAL) CBC without differential (04/03/2025 4:01 AM STATEMENT CLERK) Pathologist [facility] WBC 10.04(H) 3.80 - 9.90 K/cumm Hgb 7.8(L) 13.0 - 17.5 g/dL [facility] Hct 23.3(L) 38.9 - 50.3 % [facility] Plt 217 150 - 400 K/cumm [facility] MPV 9.9 9.1 - 12.3 fL [facility] RBC 2.45(L) 4.30 - 5.80 M/cumm [facility] MCV 95.1 81.3 - 96.4 fL [facility] MCH 31.8 27.1 - 33.3 pg [facility] MCHC 33.5 32.3 - 35.7 g/dL [facility] RDW CV 13.4 11.1 - 14.9 % [facility] RDW SD 46.3 35.7 - 48.1 fL [facility] NRBC abs 0.00 0.00 - 0.01 K/cumm [facility] Blood 04/03/2025 4:01 AM STATEMENT CLERK 04/03/2025 4:29 AM STATEMENT CLERK us Rubin Ricardo MD LAB BLOOD ORDERABLES F inal Result Performing Organization Address [facility] Co de Phone Number [facility] Department [place] [address] * eGFR (04/02/2025 7:30 PM STATEMENT CLERK) Pathologist [facility] eGFR 69 >=60 mL/min/1. 73 m2 Comment: [...] last reviewed 2021. Blood 04/02/2025 7:30 PM STATEMENT CLERK 04/02/2025 8:30 PM STATEMENT CLERK us Jennifer Burris MD LAB BLOOD ORDERABLES Final Re sult Performing Organization Address [facility] Co de Phone Number [facility] Department [place] [address] * (ABNORMAL) CBC without differential (04/02/2025 7:30 PM STATEMENT CLERK) Pathologist [facility] WBC 10.71(H) 3.80 - 9.90 K/cumm Hgb 8.2(L) 13.0 - 17.5 g/dL [facility] Hct 25.3(L) 38.9 - 50.3 % [facility] Plt 250 150 - 400 K/cumm [facility] MPV 9.9 9.1 - 12.3 fL [facility] RBC 2.61(L) 4.30 - 5.80 M/cumm [facility] MCV 96.9(H) 81.3 - 96.4 fL [facility] MCH 31.4 27.1 - 33.3 pg [facility] MCHC 32.4 32.3 - 35.7 g/dL [facility] RDW CV 13.4 11.1 - 14.9 % [facility] RDW SD 47.4 35.7 - 48.1 fL [facility] NRBC abs 0.00 0.00 - 0.01 K/cumm [facility] Blood 04/02/2025 7:30 PM STATEMENT CLERK 04/02/2025 8:31 PM STATEMENT CLERK us Jennifer Burris MD LAB BLOOD ORDERABLES Final Re sult [facility] Department [place] [address] * (ABNORMAL) CBC without differential (04/02/2025 7:30 PM STATEMENT CLERK) WBC 10.91(H) 3.80 - 9.90 K/cumm Hgb 8.2(L) 13.0 - 17.5 g/dL [facility] Hct 25.7(L) 38.9 - 50.3 % [facility] Plt 251 150 - 400 K/cumm [facility] MPV 10.1 9.1 - 12.3 fL [facility] RBC 2.64(L) 4.30 - 5.80 M/cumm [facility] MCV 97.3(H) 81.3 - 96.4 fL [facility] MCH 31.1 27.1 - 33.3 pg [facility] MCHC 31.9(L) 32.3 - 35.7 g/dL [facility] RDW CV 13.4 11.1 - 14.9 % [facility] RDW SD 47.3 35.7 - 48.1 fL [facility] NRBC abs 0.00 0.00 - 0.01 K/cumm [facility] Blood 04/02/2025 7:30 PM STATEMENT CLERK 04/02/2025 8:32 PM STATEMENT CLERK Jennifer Burris MD LAB BLOOD ORDERABLES Final Re sult Performing Organization Address City/[facility]/ZIP Co de Phone Number [facility] Department [place] [address] * (ABNORMAL) Basic metabolic panel (04/02/2025 7:30 PM STATEMENT CLERK) [facility] Sodium 143 135 - 145 mmol/L Potassium, pl 3.5 3.3 - 4.9 mmol/L [facility] Chloride 100 97 - 110 mmol/L [facility] CO2 36(H) 22 - 32 mmol/L [facility] Anion gap 7 2 - 15 mmol/L [facility] BUN 18 6 - 25 mg/dL [facility] Creatinine 1.07 0.80 - 1.30 mg/dL [facility] Glucose 165 70 - 199 mg/dL [facility] Comment: Interpretive Data Fasting [...] 2022. Calcium 8.9 8.5 - 10.3 mg/dL [facility] Blood 04/02/2025 7:30 PM STATEMENT CLERK 04/02/2025 8:30 PM STATEMENT CLERK Jennifer Burris MD LAB BLOOD ORDERABLES Final Re sult Performing Organization Address [facility]/ZIP Co de Phone Number [facility] Department [place] [address] * eGFR (04/02/2025 1:23 PM STATEMENT CLERK) [facility] eGFR 73 >=60 mL/min/1. 73 [...] last reviewed 2021. Blood 04/02/2025 1:23 PM STATEMENT CLERK 04/02/2025 1:46 PM STATEMENT CLERK us Lida Borja MD PhD LAB BLOOD ORDERABLES Final Result [facility] Department [place] [address] * (ABNORMAL) CBC without differential (04/02/2025 1:23 PM STATEMENT CLERK) [facility] WBC 10.85(H) 3.80 - 9.90 K/cumm Hgb 8.4(L) 13.0 - 17.5 g/dL [facility] Hct 25.4(L) 38.9 - 50.3 % [facility] Plt 174 150 - 400 K/cumm [facility] MPV 10.1 9.1 - 12.3 fL [facility] RBC 2.66(L) 4.30 - 5.80 M/cumm [facility] MCV 95.5 81.3 - 96.4 fL [facility] MCH 31.6 27.1 - 33.3 pg [facility] MCHC 33.1 32.3 - 35.7 g/dL [facility] RDW CV 13.4 11.1 - 14.9 % [facility] RDW SD 47.0 35.7 - 48.1 fL [facility] NRBC abs 0.00 0.00 - 0.01 K/cumm [facility] Blood 04/02/2025 1:23 PM STATEMENT CLERK 04/02/2025 1:46 PM STATEMENT CLERK us Jennifer Burris MD LAB BLOOD ORDERABLES Final Re sult [facility] Department [place] [address] * (ABNORMAL) Basic metabolic panel (04/02/2025 1:23 PM STATEMENT CLERK) Sodium 143 135 - 145 mmol/L Potassium, pl 4.0 3.3 - 4.9 mmol/L [facility] Chloride 99 97 - 110 mmol/L [facility] CO2 35(H) 22 - 32 mmol/L [facility] Anion gap 9 2 - 15 mmol/L [facility] BUN 21 6 - 25 mg/dL [facility] Creatinine 1.02 0.80 - 1.30 mg/dL [facility] Glucose 138 70 - 199 mg/dL [facility] Comment: Interpretive Data Fasting [...] 2022. Calcium 8.9 8.5 - 10.3 mg/dL [facility] Blood 04/02/2025 1:23 PM STATEMENT CLERK 04/02/2025 1:46 PM STATEMENT CLERK us Lida Borja MD PhD LAB BLOOD ORDERABLES Final Result [facility] Department [place] [address] * XR Chest 1 View (04/02/2025 10:17 AM STATEMENT CLERK) Anatomical Region Laterality Modality Body, Chest N/A Digital Radiogra phy 04/02/2025 1:03 PM STATEMENT CLERK Impressions 04/02/2025 1:03 PM STATEMENT CLERK No prior images available for comparison. Left [...] Armando Martinez M.D. Narrative 04/02/2025 1:03 PM STATEMENT CLERK EXAMINATION: 1 view chest radiograph Procedure Note [...] (ABNORMAL) CBC without differential (04/02/2025 6:14 AM STATEMENT CLERK) WBC 11.27(H) 3.80 - 9.90 K/cumm Hgb 8.4(L) 13.0 - 17.5 g/dL [facility] Hct 25.3(L) 38.9 - 50.3 % [facility] Plt 210 150 - 400 K/cumm [facility] MPV 10.1 9.1 - 12.3 fL [facility] RBC 2.64(L) 4.30 - 5.80 M/cumm [facility] MCV 95.8 81.3 - 96.4 fL [facility] MCH 31.8 27.1 - 33.3 pg [facility] MCHC 33.2 32.3 - 35.7 g/dL [facility] RDW CV 13.3 11.1 - 14.9 % [facility] RDW SD 46.2 35.7 - 48.1 fL [facility] NRBC abs 0.00 0.00 - 0.01 K/cumm [facility] Blood 04/02/2025 6:14 AM STATEMENT CLERK 04/02/2025 6:50 AM STATEMENT CLERK us Lida Borja MD PhD LAB BLOOD ORDERABLES Final Result [facility] Department [place] [address] * ECG 12-LEAD (04/02/2025 3:30 AM STATEMENT CLERK) Narrative [facility] - 04/02/2025 3:30 AM STATEMENT CLERK Aristeo Plunkett Jr., MD 04/02/2025 3:31 AM [...] Troponin I high-sensitivity 2-hour (04/02/2025 3:10 AM STATEMENT CLERK) Pathologist [facility] Trop I hs 18 <=35 ng/L Comment: Interpretive Data For further hscTnI resources including the diagnostic algorithm and an aid in interpretation, copy and paste this link: https://bjhlab.testcatalog.org/show/[email or web address] Current Interpretive Data last revised 2019. Trop I hs delta 2 ng/L [facility] Trop I hs interp Insignificant [facility] Blood 04/02/2025 3:10 AM STATEMENT CLERK 04/02/2025 3:42 AM STATEMENT CLERK Bola Harris MD LAB BLOOD ORDERABLES F inal Result Performing Organization Address City/[facility] Co de Phone Number [facility] Department [place] [address] * (ABNORMAL) CBC without differential (04/02/2025 3:10 AM STATEMENT CLERK) [facility] WBC 10.77(H) 3.80 - 9.90 K/cumm Hgb 7.7(L) 13.0 - 17.5 g/dL [facility] Hct 23.1(L) 38.9 - 50.3 % [facility] Plt 192 150 - 400 K/cumm [facility] MPV 10.1 9.1 - 12.3 fL [facility] RBC 2.42(L) 4.30 - 5.80 M/cumm [facility] MCV 95.5 81.3 - 96.4 fL [facility] MCH 31.8 27.1 - 33.3 pg [facility] MCHC 33.3 32.3 - 35.7 g/dL [facility] RDW CV 13.2 11.1 - 14.9 % [facility] RDW SD 45.5 35.7 - 48.1 fL [facility] NRBC abs 0.00 0.00 - 0.01 K/cumm [facility] Blood 04/02/2025 3:10 AM STATEMENT CLERK 04/02/2025 3:42 AM STATEMENT CLERK Result [facility] Bola Harris MD LAB BLOOD ORDERABLES F inal Result Performing Organization Address [facility] de Phone Number [facility] Department [place] [address] * (ABNORMAL) Blood gas, venous (04/02/2025 1:34 AM STATEMENT CLERK) Pathologist [facility] pH, Venous 7.33 7.32 - 7.43 PCO2, Venous 72(H) 40 - 50 mmHg [facility] PO2, Venous 36 mmHg [facility] Comment: Interpretive Data No Reference Range Established Current Interpretive Data was last revised on 2017. HCO3 Venous, Calculated 37(H) 20 - 30 mmol/L [facility] BE, venous 10 mmol/L [facility] Comment: Interpretive Data No Reference Range Established Current Interpretive Data was last revised on 2017. Blood 04/02/2025 1:34 AM STATEMENT CLERK 04/02/2025 1:35 AM STATEMENT CLERK Aristeo Plunkett Jr., MD LAB BLOOD ORDERABLES F inal Result Performing Organization Address [facility] de Phone Number [facility] Department [place] [address] * Troponin I high-sensitivity series (baseline, 2hr, 4hr, 6hr) (04/02/2025 1:11 AM STATEMENT CLERK) Pathologist [facility] Trop I hs 16 <=35 ng/L Comment: Interpretive Data For further hscTnI resources including the diagnostic algorithm and an aid in interpretation, copy and paste this link: https://bjhlab.testcatalog.org/show/[email or web address] Current Interpretive Data last revised 2019. Blood 04/02/2025 1:11 AM STATEMENT CLERK 04/02/2025 1:39 AM STATEMENT CLERK us Bola Harris MD LAB BLOOD ORDERABLES F inal Result [facility] Department [place] [address] * (ABNORMAL) Pro B-type natriuretic peptide (04/02/2025 1:10 AM STATEMENT CLERK) NT-proBNP 902(H) <=450 pg/mL Comment: Interpretive Comments: [...] Revised Date: 2017. Blood 04/02/2025 1:10 AM STATEMENT CLERK 04/02/2025 1:42 AM STATEMENT CLERK us Aristeo Plunkett Jr., MD LAB BLOOD ORDERABLES F inal Result Performing Organization Address City/[facility] Co de Phone Number [facility] Department [place] [address] * Check Sample (04/02/2025 12:57 AM STATEMENT CLERK) ABO Rh O Positive [facility] HCLL OTHER 04/02/2025 12:5 7 AM STATEMENT CLERK 04/02/2025 1:16 AM STATEMENT CLERK Kevin Resendez MD LAB BLOOD ORDERABLES Final R esult Performing Organization Address [facility] de Phone Number [facility] Department [place] [address] [facility] * CT Abdomen Pelvis W WO Contrast (04/02/2025 12:37 AM STATEMENT CLERK) Anatomical Region Laterality Modality Body N/A Computed Tomogra phy 04/02/2025 2:08 AM STATEMENT CLERK Impressions 04/02/2025 8:33 AM STATEMENT CLERK 1. Focus of hyperattenuation along the wall [...] Joss Chaney M.D. Narrative 04/02/2025 8:33 AM STATEMENT CLERK EXAMINATION: Computed tomography of the abdomen and [...] Result * POCT creatinine (04/01/2025 11:42 PM STATEMENT CLERK) [facility] Creatinine POC 1.2 0.8 - 1.3 mg/dL Blood 04/01/2025 11:4 2 PM STATEMENT CLERK 04/01/2025 11:42 PM STATEMENT CLERK us Notinfile Unknown LAB POCT ORDERABLES - DEVICE F inal Result [facility] Department [place] [address] * (ABNORMAL) eGFR (04/01/2025 10:51 PM STATEMENT CLERK) [facility] eGFR 59(L) >=60 mL/min/1. 73 [...] reviewed 2021. Blood 04/01/2025 10:5 1 PM STATEMENT CLERK 04/01/2025 11:10 PM STATEMENT CLERK us Bola Harris MD LAB BLOOD ORDERABLES F inal Result [facility] Department [place] [address] * (ABNORMAL) Differential, auto (04/01/2025 10:51 PM STATEMENT CLERK) Neutrophil abs 10.99(H) 1.50 - 6.50 K/cumm Imm gran abs 0.17(H) 0.00 - 0.10 K/cumm [facility] Lymphocyte abs 1.91 0.80 - 3.30 K/cumm [facility] Monocyte abs 0.65 0.20 - 0.80 K/cumm [facility] Eosinophil abs 0.70(H) 0.00 - 0.50 K/cumm [facility] Basophil abs 0.05 0.00 - 0.10 K/cumm [facility] Neutrophil pct 76.0 % [facility] Comment: Interpretive Data Percent cell count reference ranges are not reported, since discordance with absolute values may lead to misinterpretation of CBC data. Current Interpretive Data was last revised on 2017. Imm gran pct 1.2 % [facility] Comment: Interpretive Data Percent cell count reference ranges are not reported, since discordance with absolute values may lead to misinterpretation of CBC data. Current Interpretive Data was last revised on 2017. Lymphocyte pct 13.2 % [facility] Comment: Interpretive Data Percent cell count reference ranges are not reported, since discordance with absolute values may lead to misinterpretation of CBC data. Current Interpretive Data was last revised on 2017. Monocyte pct 4.5 % [facility] Comment: Interpretive Data Percent cell count reference ranges are not reported, since discordance with absolute values may lead to misinterpretation of CBC data. Current Interpretive Data was last revised on 2017. Eosinophil pct 4.8 % [facility] Comment: Interpretive Data Percent cell count reference ranges are not reported, since discordance with absolute values may lead to misinterpretation of CBC data. Current Interpretive Data was last revised on 2017. Basophil pct 0.3 % [facility] Comment: Interpretive Data Percent cell count reference ranges are not reported, since discordance with absolute values may lead to misinterpretation of CBC data. Current Interpretive Data was last revised on 2017. Blood 04/01/2025 10:5 1 PM STATEMENT CLERK 04/01/2025 11:10 PM STATEMENT CLERK Bola Harris MD LAB BLOOD ORDERABLES F inal Result [facility] Department [place] [address] * Heparin anti factor Xa activity (04/01/2025 10:51 PM STATEMENT CLERK) Anti Factor Xa <0.10 IUnits/mL Comment: Interpretive [...] on 2018. Blood 04/01/2025 10:5 1 PM STATEMENT CLERK 04/01/2025 11:02 PM STATEMENT CLERK us Aristeo Plunkett Jr., MD LAB BLOOD ORDERABLES F inal Result Performing Organization Address City/[facility]/ZIP Co de Phone Number [facility] [place] [address] * (ABNORMAL) CBC with auto differential (04/01/2025 10:51 PM STATEMENT CLERK) Pathologist [facility] WBC 14.47(H) 3.80 - 9.90 K/cumm Hgb 10.1(L) 13.0 - 17.5 g/dL [facility] Hct 30.9(L) 38.9 - 50.3 % [facility] Plt 282 150 - 400 K/cumm [facility] MPV 10.0 9.1 - 12.3 fL [facility] RBC 3.22(L) 4.30 - 5.80 M/cumm [facility] MCV 96.0 81.3 - 96.4 fL [facility] MCH 31.4 27.1 - 33.3 pg [facility] MCHC 32.7 32.3 - 35.7 g/dL [facility] RDW CV 13.1 11.1 - 14.9 % [facility] RDW SD 45.5 35.7 - 48.1 fL [facility] NRBC abs 0.00 0.00 - 0.01 K/cumm [facility] Blood 04/01/2025 10:5 1 PM STATEMENT CLERK 04/01/2025 11:10 PM STATEMENT CLERK us Bola Harris MD LAB BLOOD ORDERABLES F inal Result Performing Organization Address [facility]/ZIP Co de Phone Number [facility] Department [place] [address] * aPTT (04/01/2025 10:51 PM STATEMENT CLERK) aPTT 28 26 - 38 sec Comment: Interpretive Data Heparin therapeutic range: 66.0 - 100.0 seconds. Range based on correlation with therapeutic heparin activity range of 0.3 - 0.7 Units/mL. Blood 04/01/2025 10:5 1 PM STATEMENT CLERK 04/01/2025 11:02 PM STATEMENT CLERK Bola Harris MD LAB BLOOD ORDERABLES F inal Result Performing Organization Address [facility] [place] [address] * Protime-INR (04/01/2025 10:51 PM STATEMENT CLERK) Pathologist [facility] PT 11.1 10.2 - 13.5 sec INR 0.98 0.90 - 1.20 [facility] Comment: Interpretive data Oral anticoagulant therapeutic ranges: Venous thromboembolism prophylaxis or treatment: 2.0-3.0 CARDIOLOGY Standard range: 2.0-3.0 High-intensity range: 2.5-3.5 Refer to indication-specific guidelines for appropriate target ranges for prosthetic heart valve replacement. Current interpretive data was last revised on 2019. Blood 04/01/2025 10:5 1 PM STATEMENT CLERK 04/01/2025 11:02 PM STATEMENT CLERK Bola Harris MD LAB BLOOD ORDERABLES F inal Result Performing Organization Address [facility] [place] [address] * Type and screen (04/01/2025 10:51 PM STATEMENT CLERK) Pathologist [facility] ABO Rh O Positive Todd, indirect Negative [facility] Blood 04/01/2025 10:5 1 PM STATEMENT CLERK 04/01/2025 11:22 PM STATEMENT CLERK Narrative [facility] - 04/02/2025 12:12 AM STATEMENT CLERK Has the patient had Daratumumab or Isatuximab in the past 6 months?->Unknown Bola Harris MD LAB BLOOD BANK TEST OR DERABLES Final Result [facility] Department [place] [address] * (ABNORMAL) Comprehensive metabolic panel (04/01/2025 10:51 PM STATEMENT CLERK) Sodium 144 135 - 145 mmol/L Potassium, pl 4.3 3.3 - 4.9 mmol/L [facility] Chloride 101 97 - 110 mmol/L [facility] CO2 34(H) 22 - 32 mmol/L [facility] Anion gap 9 2 - 15 mmol/L [facility] BUN 19 6 - 25 mg/dL [facility] Creatinine 1.21 0.80 - 1.30 mg/dL [facility] Glucose 145 70 - 199 mg/dL [facility] Comment: Interpretive Data Fasting [...] 2022. Calcium 9.0 8.5 - 10.3 mg/dL [facility] Bilirubin, total 1.0 0.1 - 1.2 mg/dL [facility] Protein, pl 6.6 6.5 - 8.5 g/dL [facility] Albumin 4.1 3.5 - 5.0 g/dL [facility] Alk phos 86 40 - 130 Units/L [facility] ALT 17 7 - 55 Units/L [facility] AST 22 10 - 50 Units/L [facility] Blood 04/01/2025 10:5 1 PM STATEMENT CLERK 04/01/2025 11:10 PM STATEMENT CLERK Bola Harris MD LAB BLOOD ORDERABLES F inal Result [facility] Department [place] [address] from Last 3 Months Insurance MEDICARE [facility] Address: [facility] [address] [place] [address] [employer] Advance Directives For more information, please contact: [phone] * LIMITED - No CPR (Latest Code Status on File) Date Activated Date Inactivated Comments 04/02/2025 6:02 AM 04/07/2025 2:38 AM Question Answer Comments Provide aggressive medical m anagement before a full cardiopulmonary arrest occurs. Use antibiotics, IV Fluids, and medical treatment unless specifically selected below: No intubation * Full Code Date Activated Date Inactivated Comments 04/02/2025 5:10 AM 04/02/2025 6:02 AM Care Teams Jig Maker Relationship Specialty Start Date End Date Jayjay Fernandes MD [address] [place] [address] PCP - General Family Medicine 04/01/25
--- OUTSIDE RECORDS SUMMARY | 2025-04-07 07:09 | XMS_ITS | Clinical Summary ---
Author Organization [facility] Address [address] [place] [address] Phone Care Team Providers Care Store Receiving Specialist Name Role Phone Percy Michaels MD Primary Care Provider [phone] Social History Tobacco Use Types Packs/Day Years [...] complete this topic Insurance MEDICARE Care Teams Store Receiving Specialist Relationship Specialty Start Date End Date Percy Michaels MD [address] [place] [address] PCP - General Endocrinology 11/24/19
--- OUTSIDE RECORDS SUMMARY | 2025-04-07 07:09 | XMS_ITS | Clinical Summary ---
Author Organization [facility] Address [address] [facility] [place] [address] Phone Care Team Providers Care Quill Layer Name Role Phone Unavailable Primary Care Provider [...] mouth daily. 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 coronary artery of [place] heart without angina pectoris 06/26/2024 Primary hypertension [...] Smoking Tobacco: Former Cigarettes 1 67 1 412 - 2019 Alcohol Use Standard Drinks/Week Comments [...] on file Legal Sex Male 11:07 PM PROTECTIVE SIGNAL OPERATOR Gender Identity Not on file Sexual Orientation Not on file Last Filed Vital Signs Vital Sign Reading Time Taken Comments Blood Pressure 113/45 07/07/2024 6:10 AM PROTECTIVE SIGNAL OPERATOR Pulse 72 07/07/2024 8:23 AM PROTECTIVE SIGNAL OPERATOR Temperature 37.1 C (98.7 F) 07/07/2024 4:57 AM PROTECTIVE SIGNAL OPERATOR Respiratory Rate 18 07/07/2024 8:23 AM PROTECTIVE SIGNAL OPERATOR Oxygen Saturation 98% 07/07/2024 8:23 AM PROTECTIVE SIGNAL OPERATOR Inhaled Oxygen Concentration - - Weight 69.1 kg (152 lb 4.8 oz) 06/26/2024 2:09 A M PROTECTIVE SIGNAL OPERATOR Height 180.3 cm (5' 11) 06/26/2024 2:09 AM PROTECTIVE SIGNAL OPERATOR Body Mass Index 21.24 06/26/2024 2:09 AM PROTECTIVE SIGNAL OPERATOR Plan of Treatment Health Maintenance Due [...] exists Insurance MEDICARE PART A AND B [facility] Address: [address] [address] [employer] [place] [employer] (INTERNAL) [facility] Advance Directives For more information, please contact: [phone] * NO CPR (In Event of Cardiopulmonary Arrest) (Latest Code Status on File) Date Activated Date Inactivated Comments 06/26/2024 2:37 AM 07/07/2024 2:53 PM Question Answer Comments Mechanical Ventilation (for respiratory distress) - Invasive (i.e. intubation): No Mechanical Ventilation (for respiratory distress) - Non-Invasive (i.e. BiPAP, CPAP): Yes
--- OUTSIDE RECORDS SUMMARY | 2025-04-07 07:09 | XMS_ITS | Encounter Summary ---
Author Organization [facility] Address [address] [place] [address] Care Team Providers Care Table Inspector Name Role Phone Jamie Grande MD Unavailable [phone] Jayjay Fernandes MD Primary Care Provider [phone] Avinash Monroe MD Unavailable [phone] Samia Bautista PA-C Unavailable [phone] Luis Alberto Spears MD Unavailable [phone] Encounter Details Date Type Department Care Team (Late st Contact Info) Description 08/09/2015 Abstract [facility] [address] [place] [phone] Jamie Grande MD [address] [place] [address] Social History Tobacco Use Types Packs/Day Years Used Date Smoking Tobacco: Every Day Cigarettes 0.5 63 Comments:Current smoker, 1/2 PPD for 63 years Alcohol Use Standard Drinks/Week Comments Yes 0 (1 standard drink = 0.6 oz pur e alcohol) Wine 3-4 daily, vodka, gin. Sex and Gender Information Value Date Recorded Sex Assigned at Male 06/25/2024 7:37 PM ASPHALT SPREADER Legal Sex Male 11:27 PM CDT Gender Identity Not on file Sexual Orientation Not on file documented as of this encounter Plan of Treatment Upcoming Encounters Date Type Department Care Team (Late st Contact Info) Description 05/13/2025 1:45 AM ASPHALT SPREADER Allied Health/Nurse Visit [facility] [address] [place] [address] Jamie Grande MD [address] [place] [phone] 10/26/2025 10:45 AM CDT Office Visit [facility] [address] [place] [phone] Luis Alberto Spears MD [address] [place], [place] [address] 10/26/2025 10:45 AM CDT Allied Health/Nurse Visit [facility] [address] [place] [address] Luis Alberto Spears MD [address] [place] [address] documented as of this encounter Visit Diagnoses Not on filedocumented in this encounter Care Teams Table Inspector Relationship Specialty Start Date End Date Jayjay Fernandes MD [address] [place] [phone] PCP - General FAMILY PRACTICE 04/03/17 Jamie Grande MD [address] [place] [phone] CARDIOVASCULAR DISEASE 03/13/16 Avinash Monroe MD [address] [place] [address] [place] [facility] [employer]ender CARDIOVASCULAR DISEASE 04/07/19 09/14/24 Samia Bautista PA-C [address] [place] [address] Referring Physician PHYSICIAN TOWER ERECTOR HELPER 09/15/24 Luis Alberto Spears MD [address] [place] [address] Consulting Physician CLINICAL CARDIAC ELECTROPHYSIOLOGY 09/15/24 documented as of this encounter
--- OUTSIDE RECORDS SUMMARY | 2025-04-07 07:21 | XMS_ITS | Clinical Summary ---
Author Organization [facility] Address [address] [place] [address] Care Team Providers Care Lehr Tender Name Role Phone Jamie Grande MD Unavailable [phone] Jayjay Fernandes MD Primary Care Provider [phone] Samia Bautista PA-C Unavailable [phone] Luis Alberto Spears MD Unavailable [phone] Allergies Active Allergy Reactions Criticality Noted Date [...] situ Overview (03/14/2016): [employer] Ellipse VR [id number] implanted on 08/23/15 Hyperlipidemia LV dysfunction CAD (coronary artery disease) Aortic valve disorder Overview (03/14/2016): calcified without stenosis VT (ventricular tachycardia) Overview (03/14/2016): by report CVA (cerebral vascular accident) Overview (03/14/2016): h/o Resolved Problems Problem Noted Date Diagnosed Date Resolved Date History of GI bleed 04/08/2018 04/08/20 18 Ischemic cardiomyopathy 07/03 Encounters Date Type Department Care Team Description 02/24/2025 Telephone [facility] [address] [place] [address] Ledy Swenson ANP- Problem (Pt ) 02/02/2025 1:00 AM CDT Allied Health/Nurse Visit [facility] [address] [place] [address] Jamie Grande MD Rajagopalan, Bharath, MD from [...] Sex Assigned at Male 06/25/2024 7:37 PM 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 Legal Sex Male 11:27 PM CDT Gender Identity Not on file Sexual Orientation Not on file Last Filed Vital Signs Vital Sign Reading Time Taken Comments Blood Pressure 99/51 10/27/2024 12:14 PM CDT Pulse 64 10/27/2024 12:14 PM CDT Temperature 36.7 C (98 F) 06/26/2024 12:40 AM 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 Respiratory Rate 24 06/26/2024 12:40 AM 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 Oxygen Saturation 95% 10/27/2024 12:14 PM CDT 3L O2 Inhaled Oxygen Concentration - - Weight 67.6 kg (149 lb) 10/27/2024 12:14 PM CDT Height 180.3 cm (5' 11) 10/27/2024 12:14 PM CDT Body Mass Index 20.78 10/27/2024 12:14 PM CDT Plan of Treatment Upcoming Encounters Date Type Department Care Team (Late st Contact Info) Description 05/13/2025 1:45 AM 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 Allied Health/Nurse Visit [facility] [address] [place] [address] Jamie Grande MD [address] [place] [address] 10/26/2025 10:45 AM CDT Office Visit [facility] [address] [address] [place] [address] Luis Alberto Spears MD [address] [place] [address] 10/26/2025 10:45 AM CDT Allied Health/Nurse Visit [facility] [place] [address] Luis Alberto Spears MD [address] [place] [address] Health Maintenance Due Date Last Done Comments [...] this topic Medical Devices Implanted Type Area Stock Ranch Supervisor Device Identifier Shelf Expiration Date Model / Serial / Lot Sjm Sc Icd Implanted:08/04 by Jamie Grande MD (Quantity not on file) ICD [facility] - DIV [employer] ELLIPSE VR [id number] / [id number] / Procedures Procedure Name Priority Date/Time Associated [...] Conversion Md [facility] Final R esult [facility] TO EPIC CONVERSION from Last 3 Months or Most Recently Relevant to Health Maintenance Insurance [employer] MEDICARE MEDICARE Advance Directives * DNR (Latest Code Status on File) Date Activated Date Inactivated Comments 02/17/2018 8:33 PM 02/26/2018 8:04 PM * Full Code Date Activated Date Inactivated Comments 02/17/2018 7:51 PM 02/17/2018 8:33 PM Care Teams Lehr Tender Relationship Specialty Start Date End Date Jayjay Fernandes MD [address] [place] [address] PCP - General FAMILY PRACTICE 04/03/17 Jamie Grande MD [address] [place] [phone] CARDIOVASCULAR DISEASE 03/13/16 Samia Bautista PA-C [address] [place] [address] Referring Physician PHYSICIAN HEAD COACH 09/15/24 Luis Alberto Spears MD [address] [place] [address] Consulting Physician CLINICAL CARDIAC ELECTROPHYSIOLOGY 09/15/24
[2025-04-07] MEDS: IPRATROPIUM 0.5 MG/ALBUTEROL SULFATE 2.5 MG (BASE) AMPUL.NEB 3 ML INHALATION (09:17)
[2025-04-07] MEDS: BUDESONIDE RESPULE NEB 0.25 MG/2 ML AMP INHALATION ×3 (09:17→20:18)
[2025-04-07] MEDS: CALCIUM CARBONATE (OSCAL) 500 MG TABLET PO (09:40)
[2025-04-07] MEDS: ATORVASTATIN 40 MG TABLET PO (09:40)
[2025-04-07] MEDS: FINASTERIDE 5 MG TABLET PO (09:40)
[2025-04-07] MEDS: PANTOPRAZOLE 40 MG TABLET PO (09:41)
[2025-04-07] MEDS: FUROSEMIDE 40 MG TABLET PO ×2 (09:41→17:32)
[2025-04-07] MEDS: SERTRALINE HCL 50 MG TABLET PO (09:41)
[2025-04-07] MEDS: MORPHINE SULFATE ORAL CONC SOL (*CRX) 10 MG/0.5 ML SYRINGE 5 MG PO ×3 (09:42→20:18)
[2025-04-07] MEDS: ALPRAZolam (*CRX) 0.25 MG TABLET PO ×2 (09:43→18:51)
[2025-04-07 10:32] LABS: Iron 58 ug/dL (49-181); Percent Iron Saturation 24 % (20-50)
[2025-04-07] MEDS: LACTULOSE 20 GM/30 ML UDC PO (11:03)
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
[2025-04-07] MEDS: TAMSULOSIN HCL 0.4 MG CAPSULE PO (20:17)
[2025-04-08] VITALS (15 sets, daily range): BP systolic 123–140; BP diastolic 44–50; PULSE 68–94; RESP 16–20; TEMP 36.5–37.3; O2SAT 90–100
--- NOTE | 2025-04-08 | CONSULT_PTH ---
PATIENT: Chip Emery LOC: [facility] U#:[id number] AGE/SX: 85/M ROOM: [facility] RE04/06/[address]: Sushil Matos MD : [id number] BED: 2 DIS: 04/20/2025 SPEC #: [id number] RECD: 04/08/25 08:37 STATUS: RICHARD REDanika #: [id number] KATHARINE: 04/08/25 00:[address]: Nuno Matos DEPT: [facility] Consult RECD BY: Sabrina Quigley MLT, ([facility]) ENTERED: 04/08/25 08:37 SP TYPE: Consult OTHR DR: Hortensia De APRN Tissues: A - Peripheral Smear Procedures: Hematology Consult
--- NOTE | 2025-04-08 02:28 | PC.NURSE ---
Pt called out for c/o SOB. RN assessed the pt's spO2 which read 96% on 2L. The pt asked RN why he felt short of breath to which the RN reminded the pt it may be his anxiety and proceeded to reiterate the deep breathing techniques to the pt. Pt stated I remember all that shit! RN reiterated to the pt that cursing at staff is not allowed. Pt stated What the fuck do you think I got going on! RN communicated to the pt he will return later once the pt has calmed down. The pt proceeded to get verbally aggressive to this RN as I was walking out of the room.
--- NOTE | 2025-04-08 02:30 | PC.NURSE ---
This nurse entered room after patient had become mean and rude to staff. He said he was having trouble breathing. O2 sats 96% NC. After speaking to patient about his concerns he continued to curse at this nurse. This nurse asked if maybe a dose of his anti anxiety medicine would help. Patient said I don't know, I'm not a fucking doctor. This nurse and patient discussed the medication and he stated that it may help. This nurse administered PRN antianxiety medication and tried to educate patient on coping techniques that may help. He was not receptive to the education being provided.
[2025-04-08] MEDS: ALPRAZolam (*CRX) 0.25 MG TABLET PO ×4 (02:35→17:05)
[2025-04-08] MEDS: BUDESONIDE RESPULE NEB 0.25 MG/2 ML AMP INHALATION ×3 (05:44→20:42)
[2025-04-08] MEDS: MORPHINE SULFATE ORAL CONC SOL (*CRX) 10 MG/0.5 ML SYRINGE 5 MG PO ×3 (06:18→20:44)
--- NOTE | 2025-04-08 06:24 | PC.NURSE ---
Pt given Roxanol PO for c/o bladder spasms and to relax pt's breathing.
[2025-04-08 06:58] LABS: Hematocrit 24.7 % (37.0-46.0); Hemoglobin 7.6 g/dL (12.4-15.3); Mean Corpuscular HGB Conc 30.8 g/dL (32-36); Mean Corpuscular Hemoglobin 31.7 pg (27.0-31.0); Mean Corpuscular Volume 102.9 fL (78.0-102.0); Platelet Count Result 289 K/mm3 (150-420); Red Blood Count 2.40 M/mm3 (4.70-6.10); White Blood Count 9.4 K/mm3 (4.8-10.8)
[2025-04-08] MEDS: PANTOPRAZOLE 40 MG TABLET PO (08:13)
[2025-04-08] MEDS: CALCIUM CARBONATE (OSCAL) 500 MG TABLET PO (08:13)
[2025-04-08] MEDS: FINASTERIDE 5 MG TABLET PO (08:13)
[2025-04-08] MEDS: FUROSEMIDE 40 MG TABLET PO ×2 (08:13→17:05)
[2025-04-08] MEDS: ATORVASTATIN 40 MG TABLET PO (08:13)
[2025-04-08] MEDS: SERTRALINE HCL 50 MG TABLET PO (08:13)
[2025-04-08] MEDS: IPRATROPIUM 0.5 MG/ALBUTEROL SULFATE 2.5 MG (BASE) AMPUL.NEB 3 ML INHALATION (09:04)
[2025-04-08] MEDS: LORATADINE 10 MG TABLET PO (10:08)
[2025-04-08] MEDS: SIMETHICONE 80 MG TAB.CHEW PO ×3 (12:00→20:41)
[2025-04-08] MEDS: guaiFENesin 12 HR 600 MG TABCR 1200 MG PO (20:41)
[2025-04-08] MEDS: TAMSULOSIN HCL 0.4 MG CAPSULE PO (20:41)
[2025-04-08] MEDS: SENNA/DOCUSATE SODIUM TABLET 1 TAB PO (20:42)
--- NOTE | 2025-04-08 21:45 | PC.NURSE ---
Patient in bed with TV on. Alert and oriented. O2 on at 2LPM/NC. Neb treatment given per MD order. tolerated well. Malone cath patient and draining darren urine. Patient pleasant and cooperative. Call light and belongings within reach. HOB eleveated.
[2025-04-09] VITALS (14 sets, daily range): BP systolic 110–117; BP diastolic 51–73; PULSE 65–78; RESP 16–20; TEMP 36.7–37; O2SAT 91–98
--- NOTE | 2025-04-09 00:06 | PC.NURSE ---
Pt asleep and no signs of discomfort or shortness of breath noted.
[2025-04-09] MEDS: MORPHINE SULFATE ORAL CONC SOL (*CRX) 10 MG/0.5 ML SYRINGE 5 MG PO ×6 (01:04→21:26)
--- NOTE | 2025-04-09 01:12 | PC.NURSE ---
Ptcalled and said he was uncomfortable. Pt assisted with repositioning and blanket placement. Pt was also given morphine sulfate PO to relieve restlessness and discomfort.
--- NOTE | 2025-04-09 02:25 | PC.NURSE ---
Pt asleep and no signs of discomfort noted. Morphine effective in relieving discomfort.
--- NOTE | 2025-04-09 03:05 | PC.NURSE ---
Pt up to the commode with assist of one. Pt passed gas and returned to bed with assist of one.
--- NOTE | 2025-04-09 04:20 | PC.NURSE ---
Pt asleep and no signs of discomfort noted.
--- NOTE | 2025-04-09 05:10 | PC.NURSE ---
Pt up to the commode with assist of one. Pt passed gas and returned to bed with assist of one. Pt c/o being short of breath and uncomfortable and asked for pain medication. Pt was given morphine 5mg PO to relieve discomfort.
[2025-04-09] MEDS: BUDESONIDE RESPULE NEB 0.25 MG/2 ML AMP INHALATION ×3 (06:13→21:25)
--- NOTE | 2025-04-09 06:15 | PC.NURSE ---
Pt given a Budesonide nebulizer treatment which he tolerated well.
[2025-04-09] MEDS: ATORVASTATIN 40 MG TABLET PO (08:21)
[2025-04-09] MEDS: PANTOPRAZOLE 40 MG TABLET PO (08:21)
[2025-04-09] MEDS: ALPRAZolam (*CRX) 0.25 MG TABLET PO ×3 (08:21→16:54)
[2025-04-09] MEDS: guaiFENesin 12 HR 600 MG TABCR 1200 MG PO ×2 (08:21→21:25)
[2025-04-09] MEDS: SERTRALINE HCL 50 MG TABLET PO (08:21)
[2025-04-09] MEDS: CALCIUM CARBONATE (OSCAL) 500 MG TABLET PO (08:21)
[2025-04-09] MEDS: LORATADINE 10 MG TABLET PO (08:22)
[2025-04-09] MEDS: FINASTERIDE 5 MG TABLET PO (08:22)
[2025-04-09] MEDS: FUROSEMIDE 40 MG TABLET PO ×2 (08:22→16:54)
[2025-04-09] MEDS: SIMETHICONE 80 MG TAB.CHEW PO ×3 (08:22→21:25)
[2025-04-09] MEDS: IPRATROPIUM 0.5 MG/ALBUTEROL SULFATE 2.5 MG (BASE) AMPUL.NEB 3 ML INHALATION ×2 (09:05→17:45)
[2025-04-09] MEDS: ONDANSETRON HCL ODT 4 MG TABLET PO (17:14)
[2025-04-09] MEDS: SENNA/DOCUSATE SODIUM TABLET 1 TAB PO (21:25)
[2025-04-09] MEDS: TAMSULOSIN HCL 0.4 MG CAPSULE PO (21:25)
[2025-04-10] VITALS (15 sets, daily range): BP systolic 104–126; BP diastolic 40–50; PULSE 62–128; RESP 16–28; TEMP 36.8–38.1; O2SAT 91–100
[2025-04-10] MEDS: BUDESONIDE RESPULE NEB 0.25 MG/2 ML AMP INHALATION ×3 (06:21→20:46)
[2025-04-10 07:32] LABS: Hematocrit 26.7 % (37.0-46.0); Hemoglobin 8.0 g/dL (12.4-15.3); Mean Corpuscular HGB Conc 30.0 g/dL (32-36); Mean Corpuscular Hemoglobin 31.7 pg (27.0-31.0); Mean Corpuscular Volume 106.0 fL (78.0-102.0); Platelet Count Result 305 K/mm3 (150-420); Red Blood Count 2.52 M/mm3 (4.70-6.10); White Blood Count 10.0 K/mm3 (4.8-10.8)
[2025-04-10 08:07] LABS: Alanine Aminotransferase 24 U/L (6-50); Albumin Level 3.7 g/dL (3.5-5.1); Alkaline Phosphatase 108 U/L (38-126); Anion Gap 5 mmol/L (4-12); Aspartate Amino Transferase 35 U/L (17-59); Bilirubin,Total 0.9 mg/dL (0.2-1.3); Blood Urea Nitrogen 23 mg/dL (9-20); Calcium 8.6 mg/dL (8.4-10.2); Carbon Dioxide 36 mmol/L (22-30); Chloride 95 mmol/L (98-107); Estimated CRCL calculation 44 ml/min; Estimated Glomerular Filt Rate > 60; Glucose 93 mg/dL (65-110); Magnesium 2.3 mg/dL (1.6-2.3); Osmolality Calculated 285 mOsm/kg (285-295); Potassium 3.9 mmol/L (3.4-5.0); Sodium 136 mmol/L (137-145); Total Protein 6.1 g/dL (6.3-8.2)
--- NOTE | 2025-04-10 08:20 | PC.NURSE ---
Patient noted to be lethargic, difficult to ford, is able to follow directions after repetition. Will open eyes on command, but closes them immediately after. Able to take most meds whole a few at a time, with multiple verbal ques and repeated requests to swallow meds. Patient pale, SPO2 noted at 79%, SUBSTATION MANAGER in room, O2 increased to 5L/NC, SPo2 slowly began to rise. SUBSTATION MANAGER gave orders for Narcan.
[2025-04-10] MEDS: LORATADINE 10 MG TABLET PO (08:21)
[2025-04-10] MEDS: SERTRALINE HCL 50 MG TABLET PO (08:21)
[2025-04-10] MEDS: FINASTERIDE 5 MG TABLET PO (08:21)
[2025-04-10] MEDS: PANTOPRAZOLE 40 MG TABLET PO (08:21)
[2025-04-10] MEDS: guaiFENesin 12 HR 600 MG TABCR 1200 MG PO ×2 (08:21→20:47)
[2025-04-10] MEDS: ATORVASTATIN 40 MG TABLET PO (08:22)
[2025-04-10] MEDS: FUROSEMIDE 40 MG TABLET PO ×2 (08:22→17:19)
--- NOTE | 2025-04-10 08:23 | P.PNIM_ITS ---
Assessment and Plan Assessment and Plan (1) Physical deconditioning: Code(s): R53.81 - Other malaise Status: Acute Assessment and Plan: Patient admitted for rehab following an extended hospitalization for GI bleed. Goal to return home * PT/OT * Up to chair with meals * fall precautions (2) Chronic respiratory failure with hypoxia, on home oxygen therapy: Code(s): J96.11 - Chronic respiratory failure with hypoxia; Z99.81 - Dependence on supplemental oxygen Status: Chronic Assessment and Plan: Patient chronically wears 3L supplemental oxygen * Continue oxygen * resumed morphine per patient prescribed for his COPD * Inhalers as needed * Nebs resumed (3) COPD (chronic obstructive pulmonary disease): Qualifiers: COPD type: chronic bronchitis Chronic bronchitis type: simple Qualified Code(s): J41.0 - Simple chronic bronchitis Code(s): J44.9 - Chronic obstructive pulmonary disease, unspecified Status: Chronic Assessment and Plan: See Above (4) Macrocytic anemia with vitamin B12 deficiency: Code(s): D51.9 - Vitamin B12 deficiency anemia, unspecified Status: Acute Assessment and Plan: Patient with history of anemia and GI bleeds Hgb 7.0 POA * Trend Hgb Q48 hrs * Transfuse PRBC if hgb <7.0 * monitor for signs of bleeding * recommended referral to hematology (5) BPH (benign prostatic hyperplasia): Code(s): N40.0 - Benign prostatic hyperplasia without lower urinary tract symptoms Status: Chronic Assessment and Plan: * Continued Flomax and Proscar (6) Ischemic cardiomyopathy: Code(s): I25.5 - Ischemic cardiomyopathy Status: Chronic Assessment and Plan: * Continued Carvidelol * continue Lasix * monitor of fluid overload * low sodium diet * Daily weights (7) Depression with anxiety: Code(s): F41.8 - Other specified anxiety disorders Status: Chronic Assessment and Plan: * continued patient Sertraline * XANAX BID scheduled and BID prn per patient reduced from TID scheduled due to being more lethargic (8) Urinary retention: Code(s): R33.9 - Retention of urine, unspecified Status: Acute Assessment and Plan: Patient with urinary retention during hospital admission from other facility and discharged with catheter * Flomax and Proscar resumed * Attempt voiding trial 04/10/2025 * if continues to have retention will need travis replaced and follow-up with urology outpatient (9) Opiate overdose: Code(s): T40.601A - Poisoning by unspecified narcotics, accidental (unintentional), initial encounter Status: Acute Assessment and Plan: Patient was prescribed mophine 5mg q4 prn outpatient which was resumed on admission, patient reported he typically only takes 1 to 2 doses daily for his breathing but sims received 6 doses in a 24 hour period. * Narcan 0.4 x 2 * decreased to 3 times daily as needed * ABG with some Hypercapnia * Narcan PRN Plan Code status: DNR/DNI per patient DVT prophylaxis: SCD's Stress ulcer prophylaxis: NA PT/OT notes: REHAB Disposition: patient admitted to [facility] for continued physical and occupational therapy to increase patient's endurance and strength with goals to return home at discharge. Medical Record Review I have reviewed the following patient records and this information was taken into consideration when formulating the assessment and plan.: previous labs and previous hospitalizations Time Spent With Patient Time with patient: Greater than 35 minutes Subjective Date/time seen: 04/10/25 08:23 Interval history: Patient is a 85 year old male admitted to [facility] for continued rehab after an extended hospitalization for a GI bleed with goal to return home when able to perform his own ADLS and care for self at home. 04/10/2025: Overheard RN attempting wake patient up for morning medication and breakfast upon entering patient was lethargic not answering questions appropriately, pale skin and pulse oximetry was at 79%. Patient had been recently started on Morphine prn outpatient which was resumed her however appears he received quiet a few doses and patient reported to be he typically only takes 1 to 2 times daily. Patient was Narcan x 2 0.4mg and oxygen bumped to 5L but able to wean back to his baseline of 3L. Patient responded to Narcan and respiratory status improved he became alert and oriented x 4 and was following all commands. ABG reveiwed with some hypercapnia. Re-evaluated patient and he was alert oriented in no acute distress and respiratory status back to baseline. Review of Systems Review of Systems: All systems reviewed & are unremarkable except as noted in HPI and below Exam Const: General: comfortable and no acute distress Other: Chronically ill male on supplemental oxygen, lethargic today HENMT: Face/Nose/Sinus: Normal nares present Mouth: Yes moist mucous membranes Eyes: General: appearance normal, both eyes and all related structures Sclera: sclerae normal Pupils: Equal, round and reactive pupils present Neck: Neck: supple Resp: Effort & Inspection: normal respiratory effort Auscultation: wheezes scattered wheezes and diminished lung sounds Cardio: Rate: regular rate Rhythm: regular rhythm GI: Auscultation: normal bowel sounds Urinary Catheter: Urinary Catheter: patent and draining and urine clear Skin: General skin exam: no rashes or lesions noted Wounds: no wounds Other: Pale skin Neuro: Cranial nerves: Yes Equal, round and reactive pupils present Speech: normal speech Motor exam (neuro): 5/5 motor strength present throughout Sensory Exam: normal sensation Other: Unsteady gait Extrem: General: normal exam except as noted Other: Right 3 and 4 finger Psych: Mental Status: mental status grossly normal Affect: normal affect Objective Data Vital Signs Vital Signs: Vital Signs - 24 hr 04/09/25 09:00 04/09/25 13:30 04/09/25 13:44 Temperature Pulse Rate 77 77 77 Respiratory Rate 20 20 20 Blood Pressure Pulse Oximetry 95 93 95 Oxygen Delivery Oxygen Flow Rate 3.5 3 3 04/09/25 16:00 04/09/25 17:40 04/09/25 17:59 Temperature 98.6 F Pulse Rate 78 78 78 Respiratory Rate 20 20 20 Blood Pressure 110/54 L Pulse Oximetry 94 94 96 Oxygen Delivery Nasal Cannula Oxygen Flow Rate 3 3 3 04/09/25 20:00 04/09/25 21:25 04/09/25 21:25 Temperature Pulse Rate 70 72 65 Respiratory Rate 20 20 Blood Pressure Pulse Oximetry 93 91 Oxygen Delivery Nasal Cannula Oxygen Flow Rate 3 3 04/09/25 21:50 04/10/25 00:00 04/10/25 06:59 Temperature 99.1 F Pulse Rate 72 64 62 Respiratory Rate 16 16 18 Blood Pressure 117/40 L Pulse Oximetry 97 92 91 Oxygen Delivery Nasal Cannula Oxygen Flow Rate 3 3 3 04/10/25 07:00 Temperature Pulse Rate 77 Respiratory Rate 18 Blood Pressure Pulse Oximetry 91 Oxygen Delivery Oxygen Flow Rate 3 Intake/Output Intake/Output: Intake & Output 04/07/25 04/08/25 04/09/25 04/10/25 23:59 23:59 23:59 23:59 Intake Total 1904 1864 1900 300 Output Total 800 1775 1725 900 Balance 1104 89 175 -600 Meds/Results Medications: Active Medications Generic Name Dose Route Start Last Admin Trade Name Freq PRN Reason Stop Dose Admin Acetaminophen 650 mg 04/07/25 01:08 Acetaminophen 325 Mg Tablet PO Q6H PRN Mild Pain (1-3) or Fever Albuterol/Ipratropium 3 ml 04/07/25 08:51 04/09/25 17:45 Ipratropium 0.5 Mg/Albuterol Sulfate 2.5 Mg (Base) Ampul.Neb 3 Ml INHALATION 3 ml QID PRN Administration Shortness Of Breath Alprazolam 0.25 mg 04/08/25 09:50 04/09/25 16:54 Alprazolam (*Crx) 0.25 Mg Tablet PO 0.25 mg TID GINA Administration Alprazolam 0.25 mg 04/08/25 09:48 Alprazolam (*Crx) 0.25 Mg Tablet PO DAILY PRN Anxiety Atorvastatin Calcium 40 mg 04/07/25 09:00 04/09/25 08:21 Atorvastatin 40 Mg Tablet PO 40 mg DAILY GINA Administration Budesonide 0.25 mg 04/07/25 09:00 04/10/25 06:21 Budesonide Respule Neb 0.25 Mg/2 Ml Amp INHALATION 0.25 mg TIDRT GINA Administration Calcium Carbonate 500 mg 04/07/25 09:00 04/09/25 08:21 Calcium Carbonate (Oscal) 500 Mg Tablet PO 500 mg DAILY GINA Administration Carvedilol 3.125 mg 04/07/25 09:00 04/09/25 21:25 Carvedilol 3.125 Mg Tablet PO 3.125 mg Q12HR GINA Administration Finasteride 5 mg 04/07/25 09:00 04/09/25 08:22 Finasteride 5 Mg Tablet PO 5 mg DAILY GINA Administration Furosemide 40 mg 04/07/25 09:00 04/09/25 16:54 Furosemide 40 Mg Tablet PO 40 mg BID GINA Administration Guaifenesin 1,200 mg 04/08/25 21:00 04/09/25 21:25 Guaifenesin 12 Hr 600 Mg Tabcr PO 1,200 mg Q12HR GINA Administration Loratadine 10 mg 04/08/25 09:50 04/09/25 08:22 Loratadine 10 Mg Tablet PO 10 mg QAM GINA Administration Morphine Sulfate 5 mg 04/07/25 09:05 04/09/25 21:26 Morphine Sulfate Oral Conc Tosha (*Crx) 10 Mg/0.5 Ml Syringe PO 5 mg Q4H PRN Administration Pain Rated 6 or Greater Ondansetron HCl 4 mg 04/07/25 01:08 04/09/25 17:14 Ondansetron Hcl Odt 4 Mg Tablet PO 4 mg Q6H PRN Administration Nausea And Vomiting Pantoprazole Sodium 40 mg 04/07/25 09:00 04/09/25 08:21 Pantoprazole 40 Mg Tablet PO 40 mg DAILY GINA Administration Polyethylene Glycol 17 gm 04/07/25 08:51 Polyethylene Glycol 3350 17 Gm Powd.Pack PO DAILY PRN Constipation Senna/Docusate Sodium 1 tab 04/07/25 21:00 04/09/25 21:25 Senna/Docusate Sodium Tablet PO 1 tab HS IGNA Administration Sertraline HCl 50 mg 04/07/25 09:00 04/09/25 08:21 Sertraline Hcl 50 Mg Tablet PO 50 mg DAILY GINA Administration Simethicone 80 mg 04/08/25 13:00 04/09/25 21:25 Simethicone 80 Mg Tab.Chew PO 80 mg QID GINA Administration Tamsulosin HCl 0.4 mg 04/07/25 21:00 04/09/25 21:25 Tamsulosin Hcl 0.4 Mg Capsule PO 0.4 mg HS GINA Administration Labs Labs: Laboratory Results - last 24 hr 04/10/25 07:01 WBC 10.0 RBC 2.52 L Hgb 8.0 L Hct 26.7 L MCV 106.0 H MCH 31.7 H MCHC 30.0 L RDW 14.8 H Plt Count 305 MPV 9.4 Sodium 136 L Potassium 3.9 Chloride 95 L Carbon Dioxide 36 H Anion Gap 5 BUN 23 H Creatinine 1.00 Estim Creat Clear Calc 44 Estimated GFR > 60 Glucose 93 Calculated Osmolality 285 Calcium 8.6 Magnesium 2.3 Total Bilirubin 0.9 AST 35 ALT 24 Alkaline Phosphatase 108 Total Protein 6.1 L Albumin 3.7 Attestation: I personally reviewed all lab results Critical Care Time Critical Care Time Critical Care Time: Yes Indication: Opiate overdose Time Type: Intermittent Initial evaluation, discuss w/ involved parties, attempting to gather old records: 20 minutes Documenting medical record: 15 minutes Review of results (EKG's, labs, imaging): 5 minutes Serial repeat bedside evaluation: 15 minutes Discussing case with multiple memebers of the care team and consultants: 10 minutes Total Critical Care Time: 65 Quality VTE Prophylaxis VTE prophylaxis: mechanical ordered -Patient's previous records reviewed on admission -ER notes reviewed in detail on admission -discussed all findings and current treatment plan with patient/Family/POA -Consultations reviewed for recommendations -Patient's disposition for safe discharge discussed with case coordinator -radiology imaging, EKG and test results I have personally reviewed and i nterpreted unless otherwise specified Dictation performed by [employer] direct speech recognition software, therefore technical maintenance specialist variants and typographical errors may occur. Hospitalist MIPS Advance Care Plan I have confirmed that the patient's Advanced Care Plan is present, code status is documented, or surrogate decision maker is listed in patient medical record.: Yes Medication Reconciliation I have utilized all available resources to obtain, update and review the patients current medications (includes all prescriptions, OTC, herbals, cannabis, and nutritional supplements).: Yes The patient is not eligible for med reconciliation; the patient is in a emergent medical situation where delaying treatment would jeopardize the patients health.: No
[2025-04-10] MEDS: NALOXONE HCL 0.4 MG/ML VIAL IV PUSH ×2 (08:51→09:12)
--- NOTE | 2025-04-10 09:00 | PC.NURSE ---
1st dose of Intranasal Narcan given d/t unable to start IV. ED called, Gloria able to start 22 gauge to left wrist, 2nd dose of IV narcan given.
[2025-04-10 09:03] LABS: HCO3 ABG 37.7 mmol/L (23-29); Liters per Minute 10.0 LPM; Oxygen Saturation ABG 93.9 % (95-97); PCO2 ABG 67.6 mmHg (35-45); PO2 ABG 79.8 mmHg (75-85); Site Drawn RIGHT BRACHIAL
--- NOTE | 2025-04-10 09:05 | PC.NURSE ---
Patient SPo2 up to 97% on %L/NC, decreased back down to 3L
[2025-04-10] MEDS: ALPRAZolam (*CRX) 0.25 MG TABLET PO ×2 (09:22→20:48)
--- NOTE | 2025-04-10 09:25 | PC.NURSE ---
Patient continues to c/o SOB, and anxiety, PRN Xanax given per [employer]ATOR order, with limited effectiveness, SPO2 at 95% on 3L/NC, pulse at 127, O2 increased to 4L for patient comfort.
[2025-04-10] MEDS: IPRATROPIUM 0.5 MG/ALBUTEROL SULFATE 2.5 MG (BASE) AMPUL.NEB 3 ML INHALATION (09:53)
--- NOTE | 2025-04-10 19:30 | PC.NURSE ---
Indwelling urinary catheter inserted per order via sterile technique, tolerated fairly, output of 525mL clear yellow obtained draining by gravity. Patient states understanding of purpose and procedure.
[2025-04-10] MEDS: SIMETHICONE 80 MG TAB.CHEW PO (20:46)
[2025-04-10] MEDS: ACETAMINOPHEN 325 MG TABLET 650 MG PO (20:46)
[2025-04-10] MEDS: SENNA/DOCUSATE SODIUM TABLET 1 TAB PO (20:47)
[2025-04-10] MEDS: TAMSULOSIN HCL 0.4 MG CAPSULE PO (20:48)
[2025-04-11] VITALS (13 sets, daily range): BP systolic 106–133; BP diastolic 39–54; PULSE 54–92; RESP 18–24; TEMP 36.6–37.1; O2SAT 91–96
[2025-04-11] MEDS: BUDESONIDE RESPULE NEB 0.25 MG/2 ML AMP INHALATION ×3 (05:44→20:35)
[2025-04-11] MEDS: FUROSEMIDE 40 MG TABLET PO ×2 (08:31→17:32)
[2025-04-11] MEDS: guaiFENesin 12 HR 600 MG TABCR 1200 MG PO ×2 (08:31→20:36)
[2025-04-11] MEDS: SERTRALINE HCL 50 MG TABLET PO (08:32)
[2025-04-11] MEDS: LORATADINE 10 MG TABLET PO (08:32)
[2025-04-11] MEDS: FINASTERIDE 5 MG TABLET PO (08:32)
[2025-04-11] MEDS: CALCIUM CARBONATE (OSCAL) 500 MG TABLET PO (08:32)
[2025-04-11] MEDS: SIMETHICONE 80 MG TAB.CHEW PO ×4 (08:32→20:36)
[2025-04-11] MEDS: PANTOPRAZOLE 40 MG TABLET PO (08:33)
[2025-04-11] MEDS: ALPRAZolam (*CRX) 0.25 MG TABLET PO ×4 (08:33→20:36)
[2025-04-11] MEDS: ATORVASTATIN 40 MG TABLET PO (08:33)
--- NOTE | 2025-04-11 09:34 | PC.NURSE ---
0745- entered pt room to find pt resting in bed with nasal cannula out of nose. Pt appears drowsy but opens eyes to voice. Replaced nasal cannula with O2 at 3.5L per ordered dose. Check of SpO2 46%. Pt color WNL and breathing unlabored. Increased O2 to 5L and applied mask with 5 additional liters. Pt SpO2 achieved 96% after approx 5 min. Pt awake and alert with no c/o pain or discomfort. Removed mask and returned O2 per nc to 3.5L. Pt achieved and maintained SpO2 of 91%.
[2025-04-11] MEDS: IPRATROPIUM 0.5 MG/ALBUTEROL SULFATE 2.5 MG (BASE) AMPUL.NEB 3 ML INHALATION (15:29)
[2025-04-11] MEDS: TAMSULOSIN HCL 0.4 MG CAPSULE PO (20:35)
[2025-04-11] MEDS: SENNA/DOCUSATE SODIUM TABLET 1 TAB PO (20:37)
[2025-04-11] MEDS: ACETAMINOPHEN 325 MG TABLET 650 MG PO (20:38)
[2025-04-12] VITALS (13 sets, daily range): BP systolic 118–142; BP diastolic 43–51; PULSE 63–90; RESP 16–20; TEMP 35.9–37.2; O2SAT 91–100
[2025-04-12] MEDS: MORPHINE SULFATE ORAL CONC SOL (*CRX) 10 MG/0.5 ML SYRINGE 5 MG PO (03:38)
[2025-04-12] MEDS: ALPRAZolam (*CRX) 0.25 MG TABLET PO ×3 (05:16→18:01)
[2025-04-12] MEDS: BUDESONIDE RESPULE NEB 0.25 MG/2 ML AMP INHALATION ×3 (05:37→20:35)
[2025-04-12] MEDS: SIMETHICONE 80 MG TAB.CHEW PO ×4 (08:51→20:35)
[2025-04-12] MEDS: guaiFENesin 12 HR 600 MG TABCR 1200 MG PO ×2 (08:51→20:35)
[2025-04-12] MEDS: CALCIUM CARBONATE (OSCAL) 500 MG TABLET PO (08:51)
[2025-04-12] MEDS: FUROSEMIDE 40 MG TABLET PO ×2 (08:51→18:00)
[2025-04-12] MEDS: SERTRALINE HCL 50 MG TABLET PO (08:52)
[2025-04-12] MEDS: ATORVASTATIN 40 MG TABLET PO (08:52)
[2025-04-12] MEDS: FINASTERIDE 5 MG TABLET PO (08:52)
[2025-04-12] MEDS: PANTOPRAZOLE 40 MG TABLET PO (08:52)
[2025-04-12] MEDS: LORATADINE 10 MG TABLET PO (08:52)
[2025-04-12] MEDS: IPRATROPIUM 0.5 MG/ALBUTEROL SULFATE 2.5 MG (BASE) AMPUL.NEB 3 ML INHALATION (14:34)
[2025-04-12] MEDS: SENNA/DOCUSATE SODIUM TABLET 1 TAB PO (20:35)
[2025-04-12] MEDS: TAMSULOSIN HCL 0.4 MG CAPSULE PO (20:35)
[2025-04-13] VITALS (14 sets, daily range): BP systolic 129–148; BP diastolic 44–62; PULSE 74–85; RESP 16–24; TEMP 36.9–37.3; O2SAT 96–100
[2025-04-13] MEDS: ALPRAZolam (*CRX) 0.25 MG TABLET PO ×5 (04:23→20:01)
[2025-04-13] MEDS: IPRATROPIUM 0.5 MG/ALBUTEROL SULFATE 2.5 MG (BASE) AMPUL.NEB 3 ML INHALATION ×2 (04:39→10:19)
[2025-04-13 05:39] LABS: Hematocrit 26.2 % (37.0-46.0); Hemoglobin 7.9 g/dL (12.4-15.3); Mean Corpuscular HGB Conc 30.2 g/dL (32-36); Mean Corpuscular Hemoglobin 31.0 pg (27.0-31.0); Mean Corpuscular Volume 102.7 fL (78.0-102.0); Platelet Count Result 297 K/mm3 (150-420); Red Blood Count 2.55 M/mm3 (4.70-6.10); White Blood Count 7.1 K/mm3 (4.8-10.8)
[2025-04-13] MEDS: BUDESONIDE RESPULE NEB 0.25 MG/2 ML AMP INHALATION ×3 (05:47→19:55)
[2025-04-13 05:51] LABS: Alanine Aminotransferase 20 U/L (6-50); Albumin Level 3.3 g/dL (3.5-5.1); Alkaline Phosphatase 118 U/L (38-126); Aspartate Amino Transferase 25 U/L (17-59); Bilirubin,Total 0.8 mg/dL (0.2-1.3); Blood Urea Nitrogen 22 mg/dL (9-20); Calcium 8.8 mg/dL (8.4-10.2); Chloride 95 mmol/L (98-107); Estimated CRCL calculation 47 ml/min; Estimated Glomerular Filt Rate > 60; Glucose 126 mg/dL (65-110); Magnesium 2.2 mg/dL (1.6-2.3); Osmolality Calculated 299 mOsm/kg (285-295); Sodium 142 mmol/L (137-145); Total Protein 5.7 g/dL (6.3-8.2)
[2025-04-13 05:59] LABS: Potassium 2.8 mmol/L (3.4-5.0)
[2025-04-13 06:25] LABS: Anion Gap 6.99999 mmol/L (4-12); Carbon Dioxide > 40 mmol/L (22-30)
[2025-04-13] MEDS: POTASSIUM CHLORIDE 20 MEQ ER TABLET 40 MEQ PO ×2 (06:34→18:40)
[2025-04-13] MEDS: KCL 20 MEQ/SW 100 ML 100 ML 50 MEQ IVPB ×2 (06:35→09:50)
[2025-04-13] MEDS: SODIUM CHLORIDE 0.9% IV 250 ML 50 ML IV CONT (06:38)
--- NOTE | 2025-04-13 08:00 | P.PNIM_ITS ---
Assessment and Plan Assessment and Plan (1) Physical deconditioning: Code(s): R53.81 - Other malaise Status: Acute Assessment and Plan: Patient admitted for rehab following an extended hospitalization for GI bleed. Goal to return home * PT/OT * Up to chair with meals * fall precautions (2) Chronic respiratory failure with hypoxia, on home oxygen therapy: Code(s): J96.11 - Chronic respiratory failure with hypoxia; Z99.81 - Dependence on supplemental oxygen Status: Chronic Assessment and Plan: Patient chronically wears 3L supplemental oxygen * Continue oxygen * resumed morphine per patient prescribed for his COPD, dose decreased to Q12 hrs PRN * Inhalers as needed * Nebs resumed (3) COPD (chronic obstructive pulmonary disease): Qualifiers: COPD type: chronic bronchitis Chronic bronchitis type: simple Qualified Code(s): J41.0 - Simple chronic bronchitis Code(s): J44.9 - Chronic obstructive pulmonary disease, unspecified Status: Chronic Assessment and Plan: See Above (4) Macrocytic anemia with vitamin B12 deficiency: Code(s): D51.9 - Vitamin B12 deficiency anemia, unspecified Status: Acute Assessment and Plan: Patient with history of anemia and GI bleeds Hgb 7.0 POA * Trend Hgb * Transfuse PRBC if hgb <7.0 * monitor for signs of bleeding * recommended referral to hematology (5) BPH (benign prostatic hyperplasia): Code(s): N40.0 - Benign prostatic hyperplasia without lower urinary tract symptoms Status: Chronic Assessment and Plan: * Continued Flomax and Proscar (6) Ischemic cardiomyopathy: Code(s): I25.5 - Ischemic cardiomyopathy Status: Chronic Assessment and Plan: * Continued Carvidelol * continue Lasix * monitor of fluid overload * low sodium diet * Daily weights (7) Depression with anxiety: Code(s): F41.8 - Other specified anxiety disorders Status: Chronic Assessment and Plan: * continued patient Sertraline * XANAX BID scheduled and BID prn per patient reduced from TID scheduled due to being more lethargic (8) Urinary retention: Code(s): R33.9 - Retention of urine, unspecified Status: Acute Assessment and Plan: Patient with urinary retention during hospital admission from other facility and discharged with catheter * Flomax and Proscar resumed * Attempted voiding trial 04/10/2025 * if continues to have retention will need travis replaced and follow-up with urology outpatient (9) Opiate overdose: Code(s): T40.601A - Poisoning by unspecified narcotics, accidental (unintentional), initial encounter Status: Acute Assessment and Plan: Patient was prescribed mophine 5mg q4 prn outpatient which was resumed on admission, patient reported he typically only takes 1 to 2 doses daily for his breathing but sims received 6 doses in a 24 hour period. * Narcan 0.4 x 2 * decreased to 3 times daily as needed * ABG with some Hypercapnia * Narcan PRN * patient is alert and oriented today * resolved Medical Record Review I have reviewed the following patient records and this information was taken into consideration when formulating the assessment and plan.: previous labs and previous hospitalizations Subjective Date/time seen: 04/13/25 08:00 Interval history: Patient seen for a follow up visit. Patient lying in bed, in no acute distress. Patient denies acute pain. Patient is participating with PT/OT. Nursing denies acute issues at this time. Review of Systems Review of Systems: All systems reviewed & are unremarkable except as noted in HPI and below Exam Const: General: comfortable and no acute distress Other: Chronically ill male on supplemental oxygen HENMT: Face/Nose/Sinus: Normal nares present Mouth: Yes moist mucous membranes Eyes: General: appearance normal, both eyes and all related structures Sclera: sclerae normal Pupils: Equal, round and reactive pupils present Neck: Neck: supple Resp: Effort & Inspection: normal respiratory effort Auscultation: wheezes scattered wheezes and diminished lung sounds Cardio: Rate: regular rate Rhythm: regular rhythm GI: GI Palp: Yes Soft to palpation Auscultation: normal bowel sounds Urinary Catheter: Urinary Catheter: patent and draining and urine clear Skin: General skin exam: no rashes or lesions noted Wounds: no wounds Other: Pale skin Neuro: Cranial nerves: Yes Equal, round and reactive pupils present Speech: normal speech Motor exam (neuro): 5/5 motor strength present throughout Sensory Exam: normal sensation Other: Unsteady gait Extrem: General: normal exam except as noted Other: Right 3 and 4 finger amputation Psych: Mental Status: mental status grossly normal Affect: normal affect Objective Data Vital Signs Vital Signs: Vital Signs - 24 hr 04/12/25 08:40 04/12/25 08:51 04/12/25 14:37 Temperature Pulse Rate 69 69 63 Respiratory Rate 18 20 Blood Pressure Pulse Oximetry 95 95 Oxygen Delivery Nasal Cannula Oxygen Flow Rate 3 3 04/12/25 14:46 04/12/25 16:30 04/12/25 20:33 Temperature 97.6 F Pulse Rate 73 65 80 Respiratory Rate 20 20 Blood Pressure 135/46 L Pulse Oximetry 100 98 Oxygen Delivery Nasal Cannula Oxygen Flow Rate 3 3 04/12/25 20:35 04/12/25 20:50 04/13/25 00:00 Temperature 99.0 F Pulse Rate 77 82 80 Respiratory Rate 18 18 18 Blood Pressure 148/53 H Pulse Oximetry 98 96 99 Oxygen Delivery Nasal Cannula Oxygen Flow Rate 3 3 3 04/13/25 04:38 04/13/25 05:48 04/13/25 05:56 Temperature Pulse Rate 78 76 74 Respiratory Rate 18 16 18 Blood Pressure Pulse Oximetry 96 96 98 Oxygen Delivery Oxygen Flow Rate 3 3 3 Intake/Output Intake/Output: Intake & Output 04/10/25 04/11/25 04/12/25 04/13/25 23:59 23:59 23:59 23:59 Intake Total 860 1320 1520 225 Output Total 1875 1525 1650 850 [facility] -[phone] [phone] [phone] Meds/Results Medications: Active Medications Generic Name Dose Route Start Last Admin Trade Name Freq PRN Reason Stop Dose Admin Acetaminophen 650 mg 04/07/25 01:08 04/11/25 20:38 Acetaminophen 325 Mg Tablet PO 650 mg Q6H PRN Administration Mild Pain (1-3) or Fever Albuterol/Ipratropium 3 ml 04/07/25 08:51 04/13/25 04:39 Ipratropium 0.5 Mg/Albuterol Sulfate 2.5 Mg (Base) Ampul.Neb 3 Ml INHALATION 3 ml QID PRN Administration Shortness Of Breath Alprazolam 0.25 mg 04/10/25 17:00 04/12/25 18:01 Alprazolam (*Crx) 0.25 Mg Tablet PO 0.25 mg BID GINA Administration Alprazolam 0.25 mg 04/10/25 08:25 04/13/25 04:23 Alprazolam (*Crx) 0.25 Mg Tablet PO 0.25 mg BID PRN Administration Anxiety Atorvastatin Calcium 40 mg 04/07/25 09:00 04/12/25 08:52 Atorvastatin 40 Mg Tablet PO 40 mg DAILY GINA Administration Budesonide 0.25 mg 04/07/25 09:00 04/13/25 05:47 Budesonide Respule Neb 0.25 Mg/2 Ml Amp INHALATION 0.25 mg TIDRT GINA Administration Calcium Carbonate 500 mg 04/07/25 09:00 04/12/25 08:51 Calcium Carbonate (Oscal) 500 Mg Tablet PO 500 mg DAILY GINA Administration Carvedilol 3.125 mg 04/07/25 09:00 04/12/25 20:33 Carvedilol 3.125 Mg Tablet PO 3.125 mg Q12HR GINA Administration Finasteride 5 mg 04/07/25 09:00 04/12/25 08:52 Finasteride 5 Mg Tablet PO 5 mg DAILY GINA Administration Furosemide 40 mg 04/07/25 09:00 04/12/25 18:00 Furosemide 40 Mg Tablet PO 40 mg BID GINA Administration Guaifenesin 1,200 mg 04/08/25 21:00 04/12/25 20:35 Guaifenesin 12 Hr 600 Mg Tabcr PO 1,200 mg Q12HR GINA Administration Potassium Chloride 100 mls @ 50 mls/hr 04/13/25 06:07 04/13/25 06:35 Kcl 20 Meq/Sw 100 Ml IVPB 04/13/25 08:06 50 mls/hr ONCE STA Administration Potassium Chloride 100 mls @ 50 mls/hr 04/13/25 08:30 Kcl 20 Meq/Sw 100 Ml IVPB 04/13/25 10:29 ONCE ONE Sodium Chloride 250 mls @ 50 mls/hr 04/13/25 06:17 04/13/25 06:38 Normal Saline Iv IV CONT 04/13/25 11:16 50 mls/hr .Q5H ONE Administration Loratadine 10 mg 04/08/25 09:50 04/12/25 08:52 Loratadine 10 Mg Tablet PO 10 mg QAM GINA Administration Morphine Sulfate 5 mg 04/10/25 10:29 04/12/25 03:38 Morphine Sulfate Oral Conc Tosha (*Crx) 10 Mg/0.5 Ml Syringe PO 5 mg Q8HR PRN Administration Shortness Of Breath Or Wheezing Naloxone HCl 0.1 mg 04/10/25 09:00 Naloxone Hcl 0.4 Mg/Ml Vial IV PUSH Q5MIN PRN Opiate Reversal Ondansetron HCl 4 mg 04/07/25 01:08 04/09/25 17:14 Ondansetron Hcl Odt 4 Mg Tablet PO 4 mg Q6H PRN Administration Nausea And Vomiting Pantoprazole Sodium 40 mg 04/07/25 09:00 04/12/25 08:52 Pantoprazole 40 Mg Tablet PO 40 mg DAILY GINA Administration Polyethylene Glycol 17 gm 04/07/25 08:51 04/11/25 14:39 Polyethylene Glycol 3350 17 Gm Powd.Pack PO 17 gm DAILY PRN Administration Constipation Senna/Docusate Sodium 1 tab 04/07/25 21:00 04/12/25 20:35 Senna/Docusate Sodium Tablet PO 1 tab HS GINA Administration Sertraline HCl 50 mg 04/07/25 09:00 04/12/25 08:52 Sertraline Hcl 50 Mg Tablet PO 50 mg DAILY GINA Administration Simethicone 80 mg 04/08/25 13:00 04/12/25 20:35 Simethicone 80 Mg Tab.Chew PO 80 mg QID GINA Administration Tamsulosin HCl 0.4 mg 04/07/25 21:00 04/12/25 20:35 Tamsulosin Hcl 0.4 Mg Capsule PO 0.4 mg HS GINA Administration Labs Labs: Laboratory Results - last 24 hr 04/13/25 05:21 WBC 7.1 RBC 2.55 L Hgb 7.9 L Hct 26.2 L MCV 102.7 H MCH 31.0 MCHC 30.2 L RDW 14.3 Plt Count 297 MPV 8.9 Sodium 142 Potassium 2.8 L* Chloride 95 L Carbon Dioxide > 40 H Anion Gap 6.17481 BUN 22 H Creatinine 0.92 Estim Creat Clear Calc 47 Estimated GFR > 60 Glucose 126 H Calculated Osmolality 299 H Calcium 8.8 Magnesium 2.2 Total Bilirubin 0.8 AST 25 ALT 20 Alkaline Phosphatase 118 Total Protein 5.7 L Albumin 3.3 L Attestation: I personally reviewed all lab results Quality VTE Prophylaxis VTE prophylaxis: mechanical ordered
[2025-04-13] MEDS: ATORVASTATIN 40 MG TABLET PO (08:57)
[2025-04-13] MEDS: SIMETHICONE 80 MG TAB.CHEW PO ×4 (08:57→20:01)
[2025-04-13] MEDS: guaiFENesin 12 HR 600 MG TABCR 1200 MG PO ×2 (08:57→20:00)
[2025-04-13] MEDS: CALCIUM CARBONATE (OSCAL) 500 MG TABLET PO (08:57)
[2025-04-13] MEDS: PANTOPRAZOLE 40 MG TABLET PO (08:57)
[2025-04-13] MEDS: FINASTERIDE 5 MG TABLET PO (08:58)
[2025-04-13] MEDS: LORATADINE 10 MG TABLET PO (08:58)
[2025-04-13] MEDS: SERTRALINE HCL 50 MG TABLET PO (08:58)
[2025-04-13] MEDS: FUROSEMIDE 40 MG TABLET PO ×2 (08:58→16:04)
[2025-04-13 14:12] LABS: Anion Gap 2.99999 mmol/L (4-12); Blood Urea Nitrogen 19 mg/dL (9-20); Calcium 8.9 mg/dL (8.4-10.2); Carbon Dioxide > 40 mmol/L (22-30); Chloride 98 mmol/L (98-107); Estimated CRCL calculation 51 ml/min; Estimated Glomerular Filt Rate > 60; Glucose 147 mg/dL (65-110); Osmolality Calculated 297 mOsm/kg (285-295); Potassium 3.2 mmol/L (3.4-5.0); Sodium 141 mmol/L (137-145)
[2025-04-13] MEDS: SENNA/DOCUSATE SODIUM TABLET 1 TAB PO (20:01)
[2025-04-13] MEDS: ACETAMINOPHEN 325 MG TABLET 650 MG PO (20:01)
[2025-04-13] MEDS: TAMSULOSIN HCL 0.4 MG CAPSULE PO (20:01)
[2025-04-14] VITALS (16 sets, daily range): BP systolic 110–132; BP diastolic 50–51; PULSE 68–98; RESP 16–22; TEMP 36.4–37.1; O2SAT 96–100
[2025-04-14] MEDS: IPRATROPIUM 0.5 MG/ALBUTEROL SULFATE 2.5 MG (BASE) AMPUL.NEB 3 ML INHALATION ×2 (00:20→08:56)
[2025-04-14 05:44] LABS: Anion Gap 2.99999 mmol/L (4-12); Blood Urea Nitrogen 18 mg/dL (9-20); Calcium 9.1 mg/dL (8.4-10.2); Carbon Dioxide > 40 mmol/L (22-30); Chloride 99 mmol/L (98-107); Estimated CRCL calculation 50 ml/min; Estimated Glomerular Filt Rate > 60; Glucose 99 mg/dL (65-110); Magnesium 2.2 mg/dL (1.6-2.3); Osmolality Calculated 295 mOsm/kg (285-295); Potassium 3.8 mmol/L (3.4-5.0); Sodium 142 mmol/L (137-145)
[2025-04-14] MEDS: BUDESONIDE RESPULE NEB 0.25 MG/2 ML AMP INHALATION ×3 (05:53→20:01)
[2025-04-14] MEDS: POTASSIUM CHLORIDE 20 MEQ ER TABLET PO (08:09)
[2025-04-14] MEDS: PANTOPRAZOLE 40 MG TABLET PO (09:20)
[2025-04-14] MEDS: ATORVASTATIN 40 MG TABLET PO (09:20)
[2025-04-14] MEDS: SERTRALINE HCL 50 MG TABLET PO (09:20)
[2025-04-14] MEDS: CALCIUM CARBONATE (OSCAL) 500 MG TABLET PO (09:20)
[2025-04-14] MEDS: guaiFENesin 12 HR 600 MG TABCR 1200 MG PO ×2 (09:20→20:03)
[2025-04-14] MEDS: LORATADINE 10 MG TABLET PO (09:21)
[2025-04-14] MEDS: FUROSEMIDE 40 MG TABLET PO ×2 (09:21→17:48)
[2025-04-14] MEDS: SIMETHICONE 80 MG TAB.CHEW PO ×4 (09:21→20:03)
[2025-04-14] MEDS: FINASTERIDE 5 MG TABLET PO (09:21)
[2025-04-14] MEDS: ALPRAZolam (*CRX) 0.25 MG TABLET PO ×4 (09:22→20:03)
--- NOTE | 2025-04-14 12:46 | PC.NURSE ---
Pt called out to say he spilled salad dressing on his bedsheet. Assisted pt to transfer to the chair and did a complete linen change. Assisted pt to sit on side of bed. Pt stated I am in trouble, I can't breath. Get some help. Encouraged pt to remain calm and take slow breaths in his nose and out of his mouth. Increased pts O2 from 3 to 5 L per nc. Check of SpO2 showed 93%. Offered morphine pill to pt to assist with anxiety and breathing. Pt declined. Pt then stated he needed to sit on the commode. Assisted pt to transfer to bedside commode. Left O2 at 5L with SpO2 monitor on his finger and placed call light in reach. Pt called out to say he was done. [facility] provided and assisted pt to transfer back to bed with head of bed elevated. SpO2 95%. Pt stated he felt better. Turned O2 back to 3L. SpO2 93%. Call light and tray table left in reach.
[2025-04-14] MEDS: TAMSULOSIN HCL 0.4 MG CAPSULE PO (20:03)
[2025-04-14] MEDS: ACETAMINOPHEN 325 MG TABLET 650 MG PO (20:03)
[2025-04-14] MEDS: SENNA/DOCUSATE SODIUM TABLET 1 TAB PO (20:03)
[2025-04-15] VITALS (16 sets, daily range): BP systolic 100–148; BP diastolic 42–60; PULSE 63–90; RESP 16–20; TEMP 36.6–36.9; O2SAT 97–100
[2025-04-15] MEDS: MORPHINE SULFATE ORAL CONC SOL (*CRX) 10 MG/0.5 ML SYRINGE 5 MG PO (00:07)
[2025-04-15] MEDS: IPRATROPIUM 0.5 MG/ALBUTEROL SULFATE 2.5 MG (BASE) AMPUL.NEB 3 ML INHALATION ×4 (01:36→17:47)
[2025-04-15] MEDS: BUDESONIDE RESPULE NEB 0.25 MG/2 ML AMP INHALATION ×3 (06:27→20:26)
[2025-04-15] MEDS: POTASSIUM CHLORIDE 20 MEQ ER TABLET PO (08:01)
[2025-04-15] MEDS: guaiFENesin 12 HR 600 MG TABCR 1200 MG PO ×2 (08:33→20:25)
[2025-04-15] MEDS: ALPRAZolam (*CRX) 0.25 MG TABLET PO ×2 (08:33→20:26)
[2025-04-15] MEDS: CALCIUM CARBONATE (OSCAL) 500 MG TABLET PO (08:33)
[2025-04-15] MEDS: ATORVASTATIN 40 MG TABLET PO (08:33)
[2025-04-15] MEDS: FINASTERIDE 5 MG TABLET PO (08:34)
[2025-04-15] MEDS: FUROSEMIDE 40 MG TABLET PO ×2 (08:34→16:10)
[2025-04-15] MEDS: SIMETHICONE 80 MG TAB.CHEW PO ×4 (08:34→20:28)
[2025-04-15] MEDS: LORATADINE 10 MG TABLET PO (08:34)
[2025-04-15] MEDS: PANTOPRAZOLE 40 MG TABLET PO (08:34)
[2025-04-15] MEDS: SERTRALINE HCL 50 MG TABLET PO (08:34)
--- NOTE | 2025-04-15 10:11 | PC.NURSE ---
1005 - Pt called out via call light requesting assistance. Upon entering room, noted pt to be lying in bed with nasal cannula in place using pursed lip breathing. pt stated I cant get calmed down. Check of SpO2 98% on 3L O2 per nc. Informed pt of reading and offered pt a morphine pill to assist with his feeling of shortness of breath or a neb treatment. Pt agreed to neb treatment now and will try morphine if neb treatment doesn't help. [employer] senior officer placed call to RT for neb treatment. Informed pt that RT would be in with his neb treatment. Pt verbalized understanding. Pt to call if shortness of breath worsens or other concern. Call light and tray table in reach.
--- NOTE | 2025-04-15 14:46 | P.PNIM_ITS ---
Assessment and Plan Assessment and Plan (1) Physical deconditioning: Code(s): R53.81 - Other malaise Status: Acute Assessment and Plan: Patient admitted for rehab following an extended hospitalization for GI bleed. Goal to return home * PT/OT * Up to chair with meals * fall precautions * patient participates in rehab (2) Chronic respiratory failure with hypoxia, on home oxygen therapy: Code(s): J96.11 - Chronic respiratory failure with hypoxia; Z99.81 - Dependence on supplemental oxygen Status: Chronic Assessment and Plan: Patient chronically wears 3L supplemental oxygen * Continue oxygen * resumed morphine per patient prescribed for his COPD, dose decreased to Q12 hrs PRN * Inhalers as needed * Nebs resumed (3) COPD (chronic obstructive pulmonary disease): Qualifiers: COPD type: chronic bronchitis Chronic bronchitis type: simple Qualified Code(s): J41.0 - Simple chronic bronchitis Code(s): J44.9 - Chronic obstructive pulmonary disease, unspecified Status: Chronic Assessment and Plan: See Above (4) Macrocytic anemia with vitamin B12 deficiency: Code(s): D51.9 - Vitamin B12 deficiency anemia, unspecified Status: Acute Assessment and Plan: Patient with history of anemia and GI bleeds Hgb 7.0 POA * Trend Hgb * Transfuse PRBC if hgb <7.0 * monitor for signs of bleeding * recommended referral to hematology * CBC in am (5) BPH (benign prostatic hyperplasia): Code(s): N40.0 - Benign prostatic hyperplasia without lower urinary tract symptoms Status: Chronic Assessment and Plan: * Continued Flomax and Proscar (6) Ischemic cardiomyopathy: Code(s): I25.5 - Ischemic cardiomyopathy Status: Chronic Assessment and Plan: * Continued Carvidelol * continue Lasix * monitor of fluid overload * low sodium diet * Daily weights (7) Depression with anxiety: Code(s): F41.8 - Other specified anxiety disorders Status: Chronic Assessment and Plan: * continued patient Sertraline * XANAX BID scheduled and BID prn per patient reduced from TID scheduled due to being more lethargic * patient is more anxious per nursing staff (8) Urinary retention: Code(s): R33.9 - Retention of urine, unspecified Status: Acute Assessment and Plan: Patient with urinary retention during hospital admission from other facility and discharged with catheter * Flomax and Proscar resumed * Attempted voiding trial 04/10/2025 * if continues to have retention will need travis replaced and follow-up with urology outpatient (9) Opiate overdose: Code(s): T40.601A - Poisoning by unspecified narcotics, accidental (unintentional), initial encounter Status: Acute Assessment and Plan: Patient was prescribed mophine 5mg q4 prn outpatient which was resumed on admission, patient reported he typically only takes 1 to 2 doses daily for his breathing but sims received 6 doses in a 24 hour period. * Narcan 0.4 x 2 * decreased to 3 times daily as needed * ABG with some Hypercapnia * Narcan PRN * patient is alert and oriented today * resolved Medical Record Review I have reviewed the following patient records and this information was taken into consideration when formulating the assessment and plan.: previous labs and previous hospitalizations Subjective Date/time seen: 04/15/25 14:46 Interval history: Patient seen for a follow up visit. Patient sitting on the side of the bed, in no acute distress. Patient wears oxygen by NC and has dyspnea with activity. Patient participates in rehab. AM labs ordered to monitor H&H. Review of Systems Review of Systems: All systems reviewed & are unremarkable except as noted in HPI and below Exam Const: General: comfortable and no acute distress Other: Chronically ill male on supplemental oxygen HENMT: Face/Nose/Sinus: Normal nares present Mouth: Yes moist mucous membranes Eyes: General: appearance normal, both eyes and all related structures Sclera: sclerae normal Pupils: Equal, round and reactive pupils present Neck: Neck: supple Resp: Effort & Inspection: normal respiratory effort Auscultation: wheezes scattered wheezes and diminished lung sounds Cardio: Rate: regular rate Rhythm: regular rhythm GI: GI Palp: Yes Soft to palpation Auscultation: normal bowel sounds Urinary Catheter: Urinary Catheter: patent and draining and urine clear Skin: General skin exam: no rashes or lesions noted Wounds: no wounds Other: Pale skin Neuro: Cranial nerves: Yes Equal, round and reactive pupils present Speech: normal speech Motor exam (neuro): 5/5 motor strength present throughout Sensory Exam: normal sensation Other: Unsteady gait Extrem: General: normal exam except as noted Other: Right 3 and 4 finger amputation Psych: Mental Status: mental status grossly normal Affect: normal affect Objective Data Vital Signs Vital Signs: Vital Signs - 24 hr 04/14/25 14:55 04/14/25 15:07 04/14/25 16:00 Temperature 97.6 F Pulse Rate 98 85 72 Respiratory Rate 22 H 22 H 18 Blood Pressure 110/50 L Pulse Oximetry 97 100 97 Oxygen Delivery Oxygen Flow Rate 3 3 3 04/14/25 20:00 04/14/25 20:03 04/14/25 20:09 Temperature Pulse Rate 91 91 83 Respiratory Rate 20 20 Blood Pressure Pulse Oximetry 96 99 Oxygen Delivery Oxygen Flow Rate 3 3 04/15/25 00:00 04/15/25 06:28 04/15/25 06:37 Temperature 98.5 F Pulse Rate 83 81 81 Respiratory Rate 18 16 16 Blood Pressure 148/60 H Pulse Oximetry 99 97 97 Oxygen Delivery Room Air Nasal Cannula Oxygen Flow Rate 3 3 04/15/25 06:38 04/15/25 08:00 04/15/25 08:34 Temperature 98 F Pulse Rate 87 63 63 Respiratory Rate 16 20 Blood Pressure 113/43 L Pulse Oximetry 100 98 Oxygen Delivery Nasal Cannula Oxygen Flow Rate 3 3 04/15/25 10:05 04/15/25 10:20 04/15/25 10:28 Temperature Pulse Rate 90 80 Respiratory Rate 20 20 Blood Pressure Pulse Oximetry 98 98 100 Oxygen Delivery Nasal Cannula Oxygen Flow Rate 3 3 3 04/15/25 14:00 04/15/25 14:10 Temperature Pulse Rate 78 82 Respiratory Rate 20 20 Blood Pressure Pulse Oximetry 99 100 Oxygen Delivery Oxygen Flow Rate 3 3 Intake/Output Intake/Output: Intake & Output 04/12/25 04/13/25 04/14/25 04/15/25 23:59 23:59 23:59 23:59 Intake Total 1520 1495 970 360 Output Total 1650 1800 1900 2050 Balance -130 -305 -930 -3830 Meds/Results Medications: Active Medications Generic Name Dose Route Start Last Admin Trade Name Freq PRN Reason Stop Dose Admin Acetaminophen 650 mg 04/07/25 01:08 04/14/25 20:03 Acetaminophen 325 Mg Tablet PO 650 mg Q6H PRN Administration Mild Pain (1-3) or Fever Albuterol/Ipratropium 3 ml 04/07/25 08:51 04/15/25 13:58 Ipratropium 0.5 Mg/Albuterol Sulfate 2.5 Mg (Base) Ampul.Neb 3 Ml INHALATION 3 ml QID PRN Administration Shortness Of Breath Alprazolam 0.25 mg 04/10/25 08:25 04/14/25 20:03 Alprazolam (*Crx) 0.25 Mg Tablet PO 0.25 mg BID PRN Administration Anxiety Alprazolam 0.25 mg 04/15/25 09:00 04/15/25 08:33 Alprazolam (*Crx) 0.25 Mg Tablet PO 0.25 mg Q12H GINA Administration Atorvastatin Calcium 40 mg 04/07/25 09:00 04/15/25 08:33 Atorvastatin 40 Mg Tablet PO 40 mg DAILY GINA Administration Budesonide 0.25 mg 04/07/25 09:00 04/15/25 13:58 Budesonide Respule Neb 0.25 Mg/2 Ml Amp INHALATION 0.25 mg TIDRT GINA Administration Calcium Carbonate 500 mg 04/07/25 09:00 04/15/25 08:33 Calcium Carbonate (Oscal) 500 Mg Tablet PO 500 mg DAILY GINA Administration Carvedilol 3.125 mg 04/07/25 09:00 04/15/25 08:34 Carvedilol 3.125 Mg Tablet PO 3.125 mg Q12HR GINA Administration Finasteride 5 mg 04/07/25 09:00 04/15/25 08:34 Finasteride 5 Mg Tablet PO 5 mg DAILY GINA Administration Furosemide 40 mg 04/07/25 09:00 04/15/25 08:34 Furosemide 40 Mg Tablet PO 40 mg BID GINA Administration Guaifenesin 1,200 mg 04/08/25 21:00 04/15/25 08:33 Guaifenesin 12 Hr 600 Mg Tabcr PO 1,200 mg Q12HR GINA Administration Loratadine 10 mg 04/08/25 09:50 04/15/25 08:34 Loratadine 10 Mg Tablet PO 10 mg QAM GINA Administration Morphine Sulfate 5 mg 04/10/25 10:29 04/15/25 00:07 Morphine Sulfate Oral Conc Tosha (*Crx) 10 Mg/0.5 Ml Syringe PO 5 mg Q8HR PRN Administration Shortness Of Breath Or Wheezing Naloxone HCl 0.1 mg 04/10/25 09:00 Naloxone Hcl 0.4 Mg/Ml Vial IV PUSH Q5MIN PRN Opiate Reversal Ondansetron HCl 4 mg 04/07/25 01:08 04/09/25 17:14 Ondansetron Hcl Odt 4 Mg Tablet PO 4 mg Q6H PRN Administration Nausea And Vomiting Pantoprazole Sodium 40 mg 04/07/25 09:00 04/15/25 08:34 Pantoprazole 40 Mg Tablet PO 40 mg DAILY GINA Administration Polyethylene Glycol 17 gm 04/14/25 09:00 04/15/25 08:34 Polyethylene Glycol 3350 17 Gm Powd.Pack PO 17 gm DAILY GINA Administration Potassium Chloride 20 meq 04/14/25 08:00 04/15/25 08:01 Potassium Chloride 20 Meq Er Tablet PO 20 meq DAILY@0800 GINA Administration Senna/Docusate Sodium 1 tab 04/07/25 21:00 04/14/25 20:03 Senna/Docusate Sodium Tablet PO 1 tab HS GINA Administration Sertraline HCl 50 mg 04/07/25 09:00 04/15/25 08:34 Sertraline Hcl 50 Mg Tablet PO 50 mg DAILY GINA Administration Simethicone 80 mg 04/08/25 13:00 04/15/25 12:30 Simethicone 80 Mg Tab.Chew PO 80 mg QID GINA Administration Tamsulosin HCl 0.4 mg 04/07/25 21:00 04/14/25 20:03 Tamsulosin Hcl 0.4 Mg Capsule PO 0.4 mg HS GINA Administration Labs Labs: Laboratory Results - last 24 hr 04/13/25 05:21 WBC 7.1 RBC 2.55 L Hgb 7.9 L Hct 26.2 L MCV 102.7 H MCH 31.0 MCHC 30.2 L RDW 14.3 Plt Count 297 MPV 8.9 Sodium 142 Potassium 2.8 L* Chloride 95 L Carbon Dioxide > 40 H Anion Gap 6.22520 BUN 22 H Creatinine 0.92 Estim Creat Clear Calc 47 Estimated GFR > 60 Glucose 126 H Calculated Osmolality 299 H Calcium 8.8 Magnesium 2.2 Total Bilirubin 0.8 AST 25 ALT 20 Alkaline Phosphatase 118 Total Protein 5.7 L Albumin 3.3 L Attestation: I personally reviewed all lab results Quality VTE Prophylaxis VTE prophylaxis: mechanical ordered
[2025-04-15] MEDS: TAMSULOSIN HCL 0.4 MG CAPSULE PO (20:25)
[2025-04-15] MEDS: ACETAMINOPHEN 325 MG TABLET 650 MG PO (20:25)
[2025-04-15] MEDS: SENNA/DOCUSATE SODIUM TABLET 1 TAB PO (20:26)
[2025-04-16] VITALS (11 sets, daily range): BP systolic 109–150; BP diastolic 52–66; PULSE 75–99; RESP 18–22; TEMP 36.4–37.3; O2SAT 96–99
[2025-04-16] MEDS: ALPRAZolam (*CRX) 0.25 MG TABLET PO ×3 (01:05→20:08)
[2025-04-16] MEDS: MORPHINE SULFATE ORAL CONC SOL (*CRX) 10 MG/0.5 ML SYRINGE 5 MG PO (04:04)
[2025-04-16 05:43] LABS: Hematocrit 29.3 % (37.0-46.0); Hemoglobin 8.8 g/dL (12.4-15.3); Mean Corpuscular HGB Conc 30.0 g/dL (32-36); Mean Corpuscular Hemoglobin 30.6 pg (27.0-31.0); Mean Corpuscular Volume 101.7 fL (78.0-102.0); Platelet Count Result 345 K/mm3 (150-420); Red Blood Count 2.88 M/mm3 (4.70-6.10); White Blood Count 6.5 K/mm3 (4.8-10.8)
[2025-04-16] MEDS: BUDESONIDE RESPULE NEB 0.25 MG/2 ML AMP INHALATION ×3 (06:03→20:05)
[2025-04-16] MEDS: IPRATROPIUM 0.5 MG/ALBUTEROL SULFATE 2.5 MG (BASE) AMPUL.NEB 3 ML INHALATION ×2 (08:13→16:56)
[2025-04-16] MEDS: ATORVASTATIN 40 MG TABLET PO (08:46)
[2025-04-16] MEDS: CALCIUM CARBONATE (OSCAL) 500 MG TABLET PO (08:46)
[2025-04-16] MEDS: LORATADINE 10 MG TABLET PO (08:46)
[2025-04-16] MEDS: guaiFENesin 12 HR 600 MG TABCR 1200 MG PO ×2 (08:46→20:08)
[2025-04-16] MEDS: SERTRALINE HCL 50 MG TABLET PO (08:46)
[2025-04-16] MEDS: PANTOPRAZOLE 40 MG TABLET PO (08:46)
[2025-04-16] MEDS: SIMETHICONE 80 MG TAB.CHEW PO ×4 (08:46→20:08)
[2025-04-16] MEDS: POTASSIUM CHLORIDE 20 MEQ ER TABLET PO (08:47)
[2025-04-16] MEDS: FINASTERIDE 5 MG TABLET PO (08:47)
[2025-04-16] MEDS: FUROSEMIDE 40 MG TABLET PO ×2 (08:47→16:54)
[2025-04-16] MEDS: SALINE 0.65% NAS SOLN 44 ML BTL 1 SPRAY NASAL (16:53)
[2025-04-16] MEDS: TAMSULOSIN HCL 0.4 MG CAPSULE PO (20:05)
[2025-04-16] MEDS: SENNA/DOCUSATE SODIUM TABLET 1 TAB PO (20:08)
[2025-04-17] VITALS (11 sets, daily range): BP systolic 120–133; BP diastolic 50–53; PULSE 79–90; RESP 20–24; TEMP 36.2–36.6; O2SAT 92–99
[2025-04-17] MEDS: ALPRAZolam (*CRX) 0.25 MG TABLET PO ×4 (00:44→19:41)
[2025-04-17] MEDS: IPRATROPIUM 0.5 MG/ALBUTEROL SULFATE 2.5 MG (BASE) AMPUL.NEB 3 ML INHALATION ×4 (00:44→23:59)
[2025-04-17] MEDS: BUDESONIDE RESPULE NEB 0.25 MG/2 ML AMP INHALATION ×3 (05:42→19:42)
[2025-04-17] MEDS: PANTOPRAZOLE 40 MG TABLET PO (08:51)
[2025-04-17] MEDS: POTASSIUM CHLORIDE 20 MEQ ER TABLET PO (08:51)
[2025-04-17] MEDS: CALCIUM CARBONATE (OSCAL) 500 MG TABLET PO (08:51)
[2025-04-17] MEDS: LORATADINE 10 MG TABLET PO (08:52)
[2025-04-17] MEDS: FINASTERIDE 5 MG TABLET PO (08:52)
[2025-04-17] MEDS: guaiFENesin 12 HR 600 MG TABCR 1200 MG PO ×2 (08:52→19:41)
[2025-04-17] MEDS: FUROSEMIDE 40 MG TABLET PO ×2 (08:52→16:31)
[2025-04-17] MEDS: SERTRALINE HCL 50 MG TABLET PO (08:52)
[2025-04-17] MEDS: ATORVASTATIN 40 MG TABLET PO (08:53)
[2025-04-17] MEDS: SIMETHICONE 80 MG TAB.CHEW PO ×4 (08:53→19:41)
[2025-04-17] MEDS: SENNA/DOCUSATE SODIUM TABLET 1 TAB PO (19:41)
[2025-04-17] MEDS: TAMSULOSIN HCL 0.4 MG CAPSULE PO (19:41)
[2025-04-17] MEDS: ACETAMINOPHEN 325 MG TABLET 650 MG PO (23:14)
[2025-04-18] VITALS (15 sets, daily range): BP systolic 113–128; BP diastolic 49–54; PULSE 74–97; RESP 18–24; TEMP 36.7–36.8; O2SAT 94–100
[2025-04-18] MEDS: BUDESONIDE RESPULE NEB 0.25 MG/2 ML AMP INHALATION ×3 (05:35→20:02)
[2025-04-18] MEDS: POTASSIUM CHLORIDE 20 MEQ ER TABLET PO (08:04)
[2025-04-18] MEDS: IPRATROPIUM 0.5 MG/ALBUTEROL SULFATE 2.5 MG (BASE) AMPUL.NEB 3 ML INHALATION ×2 (08:28→18:46)
[2025-04-18] MEDS: guaiFENesin 12 HR 600 MG TABCR 1200 MG PO ×2 (09:12→19:59)
[2025-04-18] MEDS: CALCIUM CARBONATE (OSCAL) 500 MG TABLET PO (09:12)
[2025-04-18] MEDS: SERTRALINE HCL 50 MG TABLET PO (09:12)
[2025-04-18] MEDS: FUROSEMIDE 40 MG TABLET PO ×2 (09:12→17:44)
[2025-04-18] MEDS: FINASTERIDE 5 MG TABLET PO (09:12)
[2025-04-18] MEDS: PANTOPRAZOLE 40 MG TABLET PO (09:12)
[2025-04-18] MEDS: SIMETHICONE 80 MG TAB.CHEW PO ×4 (09:12→19:57)
[2025-04-18] MEDS: ALPRAZolam (*CRX) 0.25 MG TABLET PO ×3 (09:12→19:59)
[2025-04-18] MEDS: ATORVASTATIN 40 MG TABLET PO (09:13)
[2025-04-18] MEDS: LORATADINE 10 MG TABLET PO (09:13)
--- NOTE | 2025-04-18 10:42 | P.PNIM_ITS ---
Subjective Date/time seen: 04/18/25 10:42 Objective Data Vital Signs Vital Signs: Vital Signs - 24 hr 04/17/25 16:35 04/17/25 19:41 04/17/25 19:42 Temperature 98 F Pulse Rate 85 80 80 Respiratory Rate 24 H 24 H Blood Pressure 120/53 L Pulse Oximetry 99 92 Oxygen Delivery Room Air Oxygen Flow Rate 3 04/17/25 19:50 04/18/25 00:00 04/18/25 00:00 Temperature 98.1 F Pulse Rate 90 84 84 Respiratory Rate 24 H 22 H 22 H Blood Pressure 113/49 L Pulse Oximetry 96 95 95 Oxygen Delivery Nasal Cannula Oxygen Flow Rate 3 3 3 04/18/25 00:10 04/18/25 05:36 04/18/25 05:46 Temperature Pulse Rate 90 76 74 Respiratory Rate 22 H 20 20 Blood Pressure Pulse Oximetry 98 95 100 Oxygen Delivery Oxygen Flow Rate 3 3 3 04/18/25 08:00 04/18/25 08:29 04/18/25 08:34 Temperature 98.3 F Pulse Rate 91 97 97 Respiratory Rate 20 24 H 24 H Blood Pressure 128/54 L Pulse Oximetry 94 96 96 Oxygen Delivery Nasal Cannula Oxygen Flow Rate 3 2.5 2.5 04/18/25 09:12 Temperature Pulse Rate 81 Respiratory Rate Blood Pressure Pulse Oximetry Oxygen Delivery Oxygen Flow Rate Intake/Output Intake/Output: Intake & Output 04/15/25 04/16/25 04/17/25 04/18/25 23:59 23:59 23:59 23:59 Intake Total 840 1370 1610 670 Output Total 2050 7500 0912 700 [facility]1210 -1180 -168 -30 Meds/Results Medications: Active Medications Generic Name Dose Route Start Last Admin Trade Name Freq PRN Reason Stop Dose Admin Acetaminophen 650 mg 04/07/25 01:08 04/17/25 23:14 Acetaminophen 325 Mg Tablet PO 650 mg Q6H PRN Administration Mild Pain (1-3) or Fever Albuterol/Ipratropium 3 ml 04/07/25 08:51 04/18/25 08:28 Ipratropium 0.5 Mg/Albuterol Sulfate 2.5 Mg (Base) Ampul.Neb 3 Ml INHALATION 3 ml QID PRN Administration Shortness Of Breath Alprazolam 0.25 mg 04/10/25 08:25 04/18/25 00:00 Alprazolam (*Crx) 0.25 Mg Tablet PO 0.25 mg BID PRN Administration Anxiety Alprazolam 0.25 mg 04/15/25 09:00 04/18/25 09:12 Alprazolam (*Crx) 0.25 Mg Tablet PO 0.25 mg Q12H GINA Administration Atorvastatin Calcium 40 mg 04/07/25 09:00 04/18/25 09:13 Atorvastatin 40 Mg Tablet PO 40 mg DAILY GINA Administration Budesonide 0.25 mg 04/07/25 09:00 04/18/25 05:35 Budesonide Respule Neb 0.25 Mg/2 Ml Amp INHALATION 0.25 mg TIDRT GINA Administration Calcium Carbonate 500 mg 04/07/25 09:00 04/18/25 09:12 Calcium Carbonate (Oscal) 500 Mg Tablet PO 500 mg DAILY GINA Administration Carvedilol 3.125 mg 04/07/25 09:00 04/18/25 09:12 Carvedilol 3.125 Mg Tablet PO 3.125 mg Q12HR GINA Administration Finasteride 5 mg 04/07/25 09:00 04/18/25 09:12 Finasteride 5 Mg Tablet PO 5 mg DAILY GINA Administration Furosemide 40 mg 04/07/25 09:00 04/18/25 09:12 Furosemide 40 Mg Tablet PO 40 mg BID GINA Administration Guaifenesin 1,200 mg 04/08/25 21:00 04/18/25 09:12 Guaifenesin 12 Hr 600 Mg Tabcr PO 1,200 mg Q12HR IGNA Administration Loratadine 10 mg 04/08/25 09:50 04/18/25 09:13 Loratadine 10 Mg Tablet PO 10 mg QAM GINA Administration Morphine Sulfate 5 mg 04/10/25 10:29 04/16/25 04:04 Morphine Sulfate Oral Conc Tosha (*Crx) 10 Mg/0.5 Ml Syringe PO 5 mg Q8HR PRN Administration Shortness Of Breath Or Wheezing Naloxone HCl 0.1 mg 04/10/25 09:00 Naloxone Hcl 0.4 Mg/Ml Vial IV PUSH Q5MIN PRN Opiate Reversal Ondansetron HCl 4 mg 04/07/25 01:08 04/09/25 17:14 Ondansetron Hcl Odt 4 Mg Tablet PO 4 mg Q6H PRN Administration Nausea And Vomiting Pantoprazole Sodium 40 mg 04/07/25 09:00 04/18/25 09:12 Pantoprazole 40 Mg Tablet PO 40 mg DAILY GINA Administration Polyethylene Glycol 17 gm 04/14/25 09:00 04/18/25 10:15 Polyethylene Glycol 3350 17 Gm Powd.Pack PO Not Given DAILY GINA Potassium Chloride 20 meq 04/14/25 08:00 04/18/25 08:04 Potassium Chloride 20 Meq Er Tablet PO 20 meq DAILY@0800 GINA Administration Senna/Docusate Sodium 1 tab 04/07/25 21:00 04/17/25 19:41 Senna/Docusate Sodium Tablet PO 1 tab HS GINA Administration Sertraline HCl 50 mg 04/07/25 09:00 04/18/25 09:12 Sertraline Hcl 50 Mg Tablet PO 50 mg DAILY GINA Administration Simethicone 80 mg 04/08/25 13:00 04/18/25 09:12 Simethicone 80 Mg Tab.Chew PO 80 mg QID GINA Administration Sodium Chloride 1 spray 04/16/25 16:00 04/16/25 16:53 Saline 0.65% Joey Soln 44 Ml Btl NASAL 1 spray Q4H PRN Administration Congestion Tamsulosin HCl 0.4 mg 04/07/25 21:00 04/17/25 19:41 Tamsulosin Hcl 0.4 Mg Capsule PO 0.4 mg HS GINA Administration
[2025-04-18] MEDS: MORPHINE SULFATE ORAL CONC SOL (*CRX) 10 MG/0.5 ML SYRINGE 5 MG PO (12:44)
[2025-04-18] MEDS: ACETAMINOPHEN 325 MG TABLET 650 MG PO (19:57)
[2025-04-18] MEDS: TAMSULOSIN HCL 0.4 MG CAPSULE PO (19:59)
[2025-04-18] MEDS: SENNA/DOCUSATE SODIUM TABLET 1 TAB PO (19:59)
[2025-04-19] VITALS (17 sets, daily range): BP systolic 103–134; BP diastolic 40–53; PULSE 64–99; RESP 18–24; TEMP 36.6–37.1; O2SAT 96–100
[2025-04-19] MEDS: ALPRAZolam (*CRX) 0.25 MG TABLET PO ×3 (00:59→20:29)
[2025-04-19] MEDS: IPRATROPIUM 0.5 MG/ALBUTEROL SULFATE 2.5 MG (BASE) AMPUL.NEB 3 ML INHALATION ×4 (01:00→17:34)
[2025-04-19] MEDS: BUDESONIDE RESPULE NEB 0.25 MG/2 ML AMP INHALATION ×3 (05:52→20:27)
[2025-04-19] MEDS: FINASTERIDE 5 MG TABLET PO (08:08)
[2025-04-19] MEDS: guaiFENesin 12 HR 600 MG TABCR 1200 MG PO ×2 (08:08→20:27)
[2025-04-19] MEDS: SERTRALINE HCL 50 MG TABLET PO (08:08)
[2025-04-19] MEDS: LORATADINE 10 MG TABLET PO (08:08)
[2025-04-19] MEDS: SIMETHICONE 80 MG TAB.CHEW PO ×4 (08:08→20:29)
[2025-04-19] MEDS: PANTOPRAZOLE 40 MG TABLET PO (08:08)
[2025-04-19] MEDS: POTASSIUM CHLORIDE 20 MEQ ER TABLET PO (08:08)
[2025-04-19] MEDS: ATORVASTATIN 40 MG TABLET PO (08:08)
[2025-04-19] MEDS: CALCIUM CARBONATE (OSCAL) 500 MG TABLET PO (08:08)
[2025-04-19] MEDS: FUROSEMIDE 40 MG TABLET PO ×2 (08:09→16:04)
--- NOTE | 2025-04-19 14:07 | PC.NURSE ---
report to nina kaplan.
[2025-04-19] MEDS: TAMSULOSIN HCL 0.4 MG CAPSULE PO (20:29)
[2025-04-19] MEDS: SENNA/DOCUSATE SODIUM TABLET 1 TAB PO (20:29)
[2025-04-20] VITALS (12 sets, daily range): BP systolic 107–136; BP diastolic 61–84; PULSE 73–88; RESP 18–24; TEMP 36.3–36.8; O2SAT 97–100
[2025-04-20] MEDS: IPRATROPIUM 0.5 MG/ALBUTEROL SULFATE 2.5 MG (BASE) AMPUL.NEB 3 ML INHALATION ×3 (01:52→12:06)
[2025-04-20] MEDS: BUDESONIDE RESPULE NEB 0.25 MG/2 ML AMP INHALATION (05:48)
[2025-04-20] MEDS: POTASSIUM CHLORIDE 20 MEQ ER TABLET PO (08:06)
--- NOTE | 2025-04-20 09:01 | P.DS_ITS ---
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 DS: Discharge Diagnosis Discharge Diagnosis (1) Physical deconditioning: Code(s): R53.81 - Other malaise Status: Acute (2) Chronic respiratory failure with hypoxia, on home oxygen therapy: Code(s): J96.11 - Chronic respiratory failure with hypoxia; Z99.81 - Dependence on supplemental oxygen Status: Chronic (3) COPD (chronic obstructive pulmonary disease): Qualifiers: COPD type: chronic bronchitis Chronic bronchitis type: simple Qualified Code(s): J41.0 - Simple chronic bronchitis Code(s): J44.9 - Chronic obstructive pulmonary disease, unspecified Status: Chronic (4) Macrocytic anemia with vitamin B12 deficiency: Code(s): D51.9 - Vitamin B12 deficiency anemia, unspecified Status: Acute (5) BPH (benign prostatic hyperplasia): Code(s): N40.0 - Benign prostatic hyperplasia without lower urinary tract symptoms Status: Chronic (6) Ischemic cardiomyopathy: Code(s): I25.5 - Ischemic cardiomyopathy Status: Chronic (7) Depression with anxiety: Code(s): F41.8 - Other specified anxiety disorders Status: Chronic Assessment and Plan: * continued patient Sertraline * XANAX BID scheduled and BID prn per patient reduced from TID scheduled due to being more lethargic * patient is more anxious per nursing staff (8) Urinary retention: Code(s): R33.9 - Retention of urine, unspecified Status: Acute (9) Opiate overdose: Code(s): T40.601A - Poisoning by unspecified narcotics, accidental (unintentional), initial encounter Status: Acute DS: Summary Hospital Course Reason for hospitalization: Rehab/Physical deconditioned/ chronic respiratory failure with hypoxia/ 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 Patient then had reoccurrence of GI bleed and was admitted to [facility] for further evaluation. [place] and has required blood transfusions in the past. On assessment patient no acute distress did report some shortness of breath with his chronic respiratory failure but denied any chest pain, nausea, fever, or dizziness. of note patient was discharged with a indwelling Travis catheter due to some urinary retention at previous hospital we will attempt to do voiding trials while inpatient swing. Swing course: Patient admitted to [facility] program for rehab to increase patient's strength endurance and stability. Patient with slow progression secondary to low oxygen reserve from chronic respiratory failure and cardiomyopathy. Patient did have one event in which he was found to be lethargic not answering questions appropriately, pale skin and pulse oximetry was at 79%. Patient had been recently started on Morphine prn outpatient which was resumed her however appears he received quiet a few doses and patient reported to be he typically only takes 1 to 2 times daily. Patient was Narcan x 2 0.4mg and oxygen bumped to 5L but able to wean back to his baseline of 3L. Patient responded to Narcan and respiratory status improved he became alert and oriented x 4 and was following all commands. ABG reveiwed with some hypercapnia. Re-evaluated patient and he was alert oriented in no acute distress and respiratory status back to baseline. Patient morphine was reduced with no further episodes. Patient with minimal improvement due to his chronic conditioned and it was recommended he go to a SNF which patient agreed with since he currently lives alone. Patient seen time of discharge with no acute distress or complaints. Patient discharged to SNF, Patient agreed and acknowledged discharge plan. Status at Discharge Functional status at discharge: uses cane/walker Overall status at discharge: patient is progressing back to baseline Time Spent with Patient Time attestation: Total time spent providing and/or coordinating discharge services: Time spent: Greater than 30 minutes Exam Const: General: comfortable and no acute distress Other: Chronically ill male on supplemental oxygen, lethargic today HENMT: Face/Nose/Sinus: Normal nares present Mouth: Yes moist mucous membranes Eyes: General: appearance normal, both eyes and all related structures Sclera: sclerae normal Pupils: Equal, round and reactive pupils present Neck: Neck: supple Resp: Effort & Inspection: normal respiratory effort Auscultation: wheezes scattered wheezes and diminished lung sounds Cardio: Rate: regular rate Rhythm: regular rhythm GI: Auscultation: normal bowel sounds Urinary Catheter: Urinary Catheter: patent and draining and urine clear Skin: General skin exam: no rashes or lesions noted Wounds: no wounds Other: Pale skin Neuro: Cranial nerves: Yes Equal, round and reactive pupils present Speech: normal speech Motor exam (neuro): 5/5 motor strength present throughout Sensory Exam: normal sensation Other: Unsteady gait Extrem: General: normal exam except as noted Other: Right 3 and 4 finger Psych: Mental Status: mental status grossly normal Affect: normal affect Discharge Plan Discharge Attending physician on discharge: Nuno Matos Consulting providers: Hortensia De Discharging Clinician: Hortensia De Anticipated Discharge Date/Time: 04/20/25 09:06 Patient Disposition: SNF Activity: as tolerated Diet: as tolerated and low sodium Discharge Instructions: 1). Physical Deconditioned * PT/OT continued to increase strength and endurance * take frequent rest periods due to low oxygen reserve * Up to chair with meals * fall precautions 2). Chronic respiratory failure * Continue oxygen 3L NC * morphine prescribed for his COPD * Inhalers as needed * continue nebulizer treatments as scheduled * I also prescribed Xanax as needed for air hunger anxiety 3). ischemic cardiomyopathy with reduced ejection fraction * Continue Carvidelol as prescribed * continue Lasix as prescribed * low sodium diet * Daily weights 4). urinary retention/ BPH * Flomax and Proscar prescribed * follow up with Urology outpatient for further voiding trials * Travis catheter care instructions included How can you care for yourself at home? ? Keep track of any new symptoms or changes in your symptoms. ? Rest until you feel better. ? Be safe with medicines. Take your medicines exactly as prescribed. Call your doctor if you think you are having a problem with your medicine. ? Do not drive after taking a prescription pain medicine. ? Ensure to follow-up with primary care physician as indicated and provide updated medication list provided to you at discharge. When should you call for help? Call 911 anytime you think you may need emergency care. For example, call if: ? You passed out (lost consciousness). Call your doctor now or seek immediate medical care if: ? You have new symptoms like fever, difficulty breathing, Chest pain, vomiting, or rash. ? You have new or different pain. ? You are confused and are having trouble thinking clearly. ? Your symptoms are getting worse. Watch closely for changes in your health, and be sure to contact your doctor if: ? You do not get better as expected. 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 (DC), Low-Sodium Diet (DC) Patient Language: Honduran Stand Alone Forms: General Discharge Information, Senior Care Discharge Follow-up/Referrals: ELLY KIM [Other] - Call for Appointment Juan C Malone MD [Physician, Urology] - Call for Appointment Referral Note: Will need F/U on urinary retention with chronic travis and voiding trials Discharge Medications: New morphine concentrate 100 mg/5 mL (20 mg/mL) solution 5 mg PO .q8hr Qty: 15 0RF acetaminophen 325 mg Tablet 650 mg PO Q6H PRN (Reason: Mild Pain (1-3) Or Fever) Qty: 1 0RF sennosides-docusate sodium [Senokot-S] 8.6-50 mg Tablet 1 tab PO HS Qty: 1 0RF naloxone [Narcan] 4 mg/actuation spray,non-aerosol 4 mg intranasal Q3M PRN (Reason: opioid overdose) Qty: 2 0RF Rx Instructions: spray 1 dose into ONE nostril; alternate nostrils w each dose until help arrives guaifenesin [Mucus Relief ER] 600 mg Tablet Extended Release 12hr 1,200 mg PO Q12HR Qty: 1 0RF loratadine 10 mg Tablet 10 mg PO QAM Qty: 1 0RF simethicone 80 mg Tablet,Chewable 80 mg PO QID Qty: 1 0RF Continued atorvastatin 40 mg tablet 40 mg PO DAILY sertraline 50 mg tablet 50 mg PO DAILY budesonide [Pulmicort] 0.25 mg/2 mL suspension for nebulization 0.25 mg inhalation TID furosemide 40 mg tablet 40 mg PO BID Qty: 60 0RF pantoprazole [Protonix] See Rx Instructions PO .COMPLEX Rx Instructions: orally; polyethylene glycol 3350 [Miralax] 17 gram powder in packet 17 g PO DAILY PRN (Reason: constipation) finasteride 5 mg tablet 5 mg PO DAILY tamsulosin 0.4 mg Capsule 0.4 mg PO HS carvedilol 3.125 mg tablet 3.125 mg PO BID calcium carbonate 600 mg calcium (1,500 mg) Tablet 200 mg PO DAILY ipratropium-albuterol 0.5 mg-3 mg(2.5 mg base)/3 mL solution for nebulization 3 ml INHALATION QID PRN (Reason: shortness of breath) Rx Instructions: takes 1030, 1500, 1900 Changed alprazolam [Xanax] 0.25 mg tablet 0.25 mg PO BID Qty: 10 0RF Discontinued aspirin [Adult Low Dose Aspirin] 81 mg Tablet,Delayed Release (Dr/Ec) 81 mg PO DAILY Qty: 30 0RF morphine concentrate 5 mg/0.25 mL solution 5 mg PO Q4H PRN (Reason: pain) Date of admission: 04/06/25 23:50 Primary Care Provider: ELLY KIM Admitting Provider: Nuno Matos Attending physician on admission: Nuno Matos Condition: Improved Quality VTE Prophylaxis VTE prophylaxis: mechanical ordered -Patient's previous records reviewed on admission -ER notes reviewed in detail on admission -discussed all findings and current treatment plan with patient/Family/POA -Consultations reviewed for recommendations -Patient's disposition for safe discharge discussed with case specialist -radiology imaging, EKG and test results I have personally reviewed and interpreted unless otherwise specified Dictation performed by [employer] direct speech recognition software, therefore viscosity worker variants and typographical errors may occur. Hospitalist MIPS Heart Failure (Exclusion) Patient has history of Heart Transplant or Left Ventricular Assistive Device?: No IF YES, STOP HERE Heart Failure (Qualifier) Patient has current or prior documentation of LVEF less than or equal to 40%, or mod/servere depressed LVSF?: Yes IF NO, STOP HERE If Yes, Heart Failure (Qualifier) Patient was prescribed or already taking an Angiotensin-Converting Enzyme (MILLY) Inhibitor, or Antiotensin Receptor Olamide (ARB): No Patient was prescribed or already taking bisoprolol, carvedilol, or sustained release metoprolol succinate: Yes If Medications not prescribed/taking Reason patient not prescribed/taking MILLY or ARB: Medical reasons: allergy, intolerance, contraindication or other
[2025-04-20] MEDS: ALPRAZolam (*CRX) 0.25 MG TABLET PO (09:13)
[2025-04-20] MEDS: PANTOPRAZOLE 40 MG TABLET PO (09:13)
[2025-04-20] MEDS: LORATADINE 10 MG TABLET PO (09:13)
[2025-04-20] MEDS: FUROSEMIDE 40 MG TABLET PO (09:13)
[2025-04-20] MEDS: SIMETHICONE 80 MG TAB.CHEW PO ×2 (09:13→12:46)
[2025-04-20] MEDS: SERTRALINE HCL 50 MG TABLET PO (09:13)
[2025-04-20] MEDS: guaiFENesin 12 HR 600 MG TABCR 1200 MG PO (09:13)
[2025-04-20] MEDS: ATORVASTATIN 40 MG TABLET PO (09:13)
[2025-04-20] MEDS: CALCIUM CARBONATE (OSCAL) 500 MG TABLET PO (09:13)
[2025-04-20] MEDS: FINASTERIDE 5 MG TABLET PO (09:14)
--- NOTE | 2025-04-20 11:01 | PC.NURSE ---
11:00 - Discharge orders received for pt to go to [facility]. Report called to Loren. Orders faxed by discharge specialist. Reminded Loren to bring oxygen concentrator as pt is on 3L O2 per nc continuous. 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 Pt aware.
--- NOTE | 2025-04-20 13:09 | PC.NURSE ---
1300 - Employee from [facility] Pt on 3L per portable O2. All belongings with pt.
--- NOTE | 2025-04-22 09:33 | PC.NURSE ---
discharge to longterm, no questions on instructions or medications
== END 2025-04-20 13:05 | disposition hospice, inpatient (51) | DRG 948 ==
PROVIDERS: Nurse Practitioner Adult Health; Nurse Practitioner Family; Admitting Provider Internal Medicine; Visit Provider Internal Medicine
DX: R53.81 Other malaise (principal); J96.11 Chronic respiratory failure with hypoxia; T40.601 Poisoning by unspecified narcotics, accidental (unintentional); D51.9 Vitamin B12 deficiency anemia, unspecified; F32.A Depression, unspecified; F41.8 Other specified anxiety disorders; I25.2 Old myocardial infarction; I25.5 Ischemic cardiomyopathy; J44.9 Chronic obstructive pulmonary disease, unspecified; J41.0 Simple chronic bronchitis; N40.0 Benign prostatic hyperplasia without lower urinary tract symptoms; R33.8 Other retention of urine; Z99.81 Dependence on supplemental oxygen; Z66 Do not resuscitate; Z86.73 Personal history of transient ischemic attack (TIA), and cerebral infarction without residual deficits; Z95.5 Presence of coronary angioplasty implant and graft; Z95.0 Presence of cardiac pacemaker; Z87.891 Personal history of nicotine dependence; Z79.82 Long term (current) use of aspirin
CPT/HCPCS: 36415; 36600; 80048; 80053; 82805; 83540; 83550; 83735; 85027; 94640; 97110; 97161; 97165; 97530; 97535; A9270; J2312; J3480; J7050

== ENCOUNTER 2025-04-25 07:10 | Emergency (ER) | payer MEDICARE, OTHER, SELFPAY ==
[2025-04-25] VITALS (21 sets, daily range): BP systolic 110–149; BP diastolic 48–88; PULSE 87–127; RESP 15–50; TEMP 36.7–36.9; O2SAT 75–100
--- NOTE | ~2025-04-25 | CT_ITS ---
EXAMINATION: CT abdomen pelvis w con DATE: 04/25/2025 09:26 INDICATION: Abdominal pain TECHNIQUE: Computed tomography (CT) of the abdomen and pelvis was performed with 100 mL Omnipaque-350 intravenous contrast. Automated exposure control and iterative reconstruction technique were employed. The dose-length product was 296.87 mGy-cm. COMPARISON: None FINDINGS: Moderate emphysema at the lung bases. Mild atelectasis and a couple calcified pulmonary nodules in the dependent right lower lobe consistent with sequela of old granulomatous disease. Heart size is normal. Persistent small pericardial effusion. Myocardial fatty atrophy centered at the apex of the hardware there is a small pseudoaneurysm consistent with sequela of chronic myocardial infarction. Atherosclerotic coronary artery calcification. Cardiac pacemaker/AICD with lead tip near the apex of the right ventricle. Multiple hepatic and a few splenic calcifications consistent with old granulomatous disease. Subcentimeter low-attenuation hepatic cyst. Gallbladder, pancreas and bilateral adrenal glands are normal. There is relatively symmetric mild likely age-related bilateral renal atrophy with a few small regions of more severe focal cortical atrophy in both kidneys which likely sequela prior infection or infarction. Marked sigmoid and descending colon predominant diverticulosis without adjacent from trace stranding to suggest diverticulitis. Small bowel and appendix are normal. Ectatic infrarenal abdominal aorta measuring up to 3.2 cm in maximal diameter. Malone catheter in the decompressed bladder. No free intraperitoneal gas or fluid. No pathologically enlarged abdominal or pelvic lymphadenopathy. Prominent streak artifact associated with a bipolar type left hip hemiarthroplasty. Mild lumbar spondylosis. IMPRESSION: 1. Unchanged small pericardial effusion changes of chronic myocardial infarction with myocardial fatty atrophy and pseudoaneurysm at the left ventricular apex. 2. Marked sigmoid and descending colon predominant diverticulosis. No acute intra-abdominal/pelvic process. Reviewed, dictated and finalized at location A. RAFT LINE ASSEMBLER IMPRESSION: 1. Unchanged small pericardial effusion changes of chronic myocardial infarctio n with myocardial fatty atrophy and pseudoaneurysm at the left ventricular apex . 2. Marked sigmoid and descending colon predominant diverticulosis. No acute int ra-abdominal/pelvic process.
--- NOTE | ~2025-04-25 | XR_ITS ---
Examination: XR chest 1V portable Clinical History: Shortness of breath Comparison: 03/29/2025 Technique: Portable AP Findings: Left ICD. Heart size normal. Chronic hyperinflation. Lungs clear. No acute bony abnormality. IMPRESSION: 1. No acute cardiopulmonary findings given portable technique. Reviewed, dictated and finalized at location R. PRESSURE FIRER
[2025-04-25] MEDS: IPRATROPIUM 0.5 MG/ALBUTEROL SULFATE 2.5 MG (BASE) AMPUL.NEB 3 ML INHALATION (08:15)
[2025-04-25 08:31] LABS: Hematocrit 33.9 % (37.0-46.0); Hemoglobin 10.4 g/dL (12.4-15.3); Immature Granulocyte Percent A 0.8 % (0.0-0.0); Lymphocytes Absolute Auto 1.12 K/mm3 (1.10-4.50); Mean Corpuscular HGB Conc 30.7 g/dL (32-36); Mean Corpuscular Hemoglobin 30.6 pg (27.0-31.0); Mean Corpuscular Volume 99.7 fL (78.0-102.0); Nucleated Red Blood Cells Absolute Auto 0.00 K/mm3 (0.00-0.00); Nucleated Red Blood Cells Perc 0.0 % (0-0.0); Platelet Count Result 345 K/mm3 (150-420); Red Blood Count 3.40 M/mm3 (4.70-6.10); White Blood Count 7.1 K/mm3 (4.8-10.8)
[2025-04-25 08:32] LABS: Add Urine Microscopic? YES; Appearance Urine Clear (Clear); Glucose Urine UA Negative (Negative); Leukocyte Esterase Ur Negative LEU/UL (Negative); Nitrate Urine Negative (Negative); Specific Grav Ur 1.020 (1.010-1.020)
--- OUTSIDE RECORDS SUMMARY | 2025-04-25 08:43 | XMS_ITS | Clinical Summary ---
Author Organization [facility] Address [address] [place] [address] Care Team Providers Care Dispatcher Radio Name Role Phone Jayjay Fernandes MD Primary Care Provider [phone] Allergies No known active allergies Medications ALPRAZolam [...] 04/05/2025 Assessment & Plan (04/06/2025 10:50 AM SANITARIAN AIDE): - Cont home finasteride and flomax. - New urinary retention on 04/05, with discomfort. Bladder scan 600+. Persistent retention after straight cath - Malone placed last night - Will likely need repeat void trial at rehab Assessment & Plan (04/05/2025 3:48 PM SANITARIAN AIDE): - Cont home finasteride and flomax. - New urinary retention on 04/05, with discomfort. Bladder scan 600+ - Bladder scan/ Straight cath q4 PRN Lower GI bleed 04/03/2025 Assessment & Plan (04/06/2025 10:50 AM SANITARIAN AIDE): Patient presented with recurrent painless hematochezia. Has had this issue since almost 2019. Last eval was with sigmoidoscopy in Jun this year but prep was sub optimal however no active bleeding was seen. Was also recently admitted at [facility] (no scopes or transfusions over there) and discharged few days before presenting to [facility]. Last colonoscopy was 2018. He is not [...] CTA Assessment & Plan (04/05/2025 3:48 PM SANITARIAN AIDE): Patient presented with recurrent painless hematochezia. Has had this issue since almost 2018. Last eval was with sigmoidoscopy in Jun this year but prep was sub optimal however no active bleeding was seen. Was also recently admitted at [facility]SH (no scopes or transfusions over there) and discharged few days before presenting to [facility]. Last colonoscopy was 2018. He is not [...] CTA Assessment & Plan (2025 12:16 PM SANITARIAN AIDE): Patient presented with recurrent painless hematochezia. Has had this issue since almost 2018. Last eval was with sigmoidoscopy in jun this year but prep was sub optimal however no active bleeding was seen. Was also recently admitted at [facility]SH (no scopes or transfusions over there) and discharged few days before presenting to [facility]. Last colonoscopy was 2017. He is not [...] CTA Assessment & Plan (04/03/2025 12:17 PM SANITARIAN AIDE): Patient presented with recurrent painless hematochezia. Has had this issue since almost 2018. Last eval was with sigmoidoscopy in jun this year but prep was sub optimal however no active bleeding was seen. Was also recently admitted at [facility]SH (no scopes or transfusions over there) and discharged few days before presenting to [facility]. Last colonoscopy was 2017. He is not [...] 04/03/2025 Assessment & Plan (04/06/2025 10:50 AM SANITARIAN AIDE): Patient presented with recurrent painless hematochezia. Has had this issue since almost 2018. Last eval was with sigmoidoscopy in Jun this year but prep was sub optimal however no active bleeding was seen. Was also recently admitted at [facility]SH (no scopes or transfusions over there) and discharged few days before presenting to [facility]. Last colonoscopy was 2017. He is not [...] CTA Assessment & Plan (04/05/2025 3:48 PM SANITARIAN AIDE): Patient presented with recurrent painless hematochezia. Has had this issue since almost 2018. Last eval was with sigmoidoscopy in Jun this year but prep was sub optimal however no active bleeding was seen. Was also recently admitted at [facility]SH (no scopes or transfusions over there) and discharged few days before presenting to [facility]. Last colonoscopy was 2017. He is not [...] CTA Assessment & Plan (2025 12:16 PM SANITARIAN AIDE): Patient presented with recurrent painless hematochezia. Has had this issue since almost 2018. Last eval was with sigmoidoscopy in jun this year but prep was sub optimal however no active bleeding was seen. Was also recently admitted at [facility]SH (no scopes or transfusions over there) and discharged few days before presenting to [facility]. Last colonoscopy was 2017. He is not [...] CTA Assessment & Plan (04/03/2025 12:17 PM SANITARIAN AIDE): Patient presented with recurrent painless hematochezia. Has had this issue since almost 2018. Last eval was with sigmoidoscopy in jun this year but prep was sub optimal however no active bleeding was seen. Was also recently admitted at [facility]SH (no scopes or transfusions over there) and discharged few days before presenting to [facility]. Last colonoscopy was 2017. He is not [...] 04/03/2025 Assessment & Plan (04/06/2025 10:50 AM SANITARIAN AIDE): - S/p CABG and ICD. Cont home asa and statin. Assessment & Plan (04/05/2025 3:48 PM SANITARIAN AIDE): - S/p CABG and ICD. Cont home asa and statin. Assessment & Plan (2025 12:16 PM SANITARIAN AIDE): S/p CABG and ICD. Cont home asa and statin Assessment & Plan (04/03/2025 12:17 PM SANITARIAN AIDE): S/p CABG and ICD. Cont home asa and statin History of COPD 04/03/2025 Assessment & Plan (04/06/2025 10:50 AM SANITARIAN AIDE): On 3 L O2 at baseline. No [...] discharge. Assessment & Plan (04/05/2025 3:48 PM SANITARIAN AIDE): On 3 L O2 at baseline. No [...] discharge. Assessment & Plan (2025 12:16 PM SANITARIAN AIDE): On 3 L o2 at baseline. No [...] discharge. Assessment & Plan (04/03/2025 12:17 PM SANITARIAN AIDE): On 3 L o2 at baseline. No [...] 04/03/2025 Assessment & Plan (04/06/2025 10:50 AM SANITARIAN AIDE): - Cont home finasteride and flomax. - New urinary retention on 04/05, with discomfort. Bladder scan 600+. Persistent retention after straight cath - Malone placed last night - Will likely need repeat void trial at rehab Assessment & Plan (04/05/2025 3:48 PM SANITARIAN AIDE): - Cont home finasteride and flomax. - New urinary retention on 04/05, with discomfort. Bladder scan 600+ - Bladder scan/ Straight cath q4 PRN Assessment & Plan (2025 12:16 PM SANITARIAN AIDE): Cont home finasteride and flomax Assessment & Plan (04/03/2025 12:17 PM SANITARIAN AIDE): Cont home finasteride and flomax Chronic dyspnea, improved 04/03/2025 Assessment & Plan (04/06/2025 10:50 AM SANITARIAN AIDE): On 3 L O2 at baseline. No [...] discharge. Assessment & Plan (04/05/2025 3:48 PM SANITARIAN AIDE): On 3 L O2 at baseline. No [...] discharge. Assessment & Plan (2025 12:16 PM SANITARIAN AIDE): On 3 L o2 at baseline. No [...] discharge. Assessment & Plan (04/03/2025 12:17 PM SANITARIAN AIDE): On 3 L o2 at baseline. No [...] 04/02/2025 Assessment & Plan (04/06/2025 10:50 AM SANITARIAN AIDE): Patient presented with recurrent painless hematochezia. Has had this issue since almost 2018. Last eval was with sigmoidoscopy in Jun this year but prep was sub optimal however no active bleeding was seen. Was also recently admitted at OSH (no scopes or transfusions over there) and discharged few days before presenting to [facility]. Last colonoscopy was 2017. He is not [...] CTA Assessment & Plan (04/05/2025 3:48 PM SANITARIAN AIDE): Patient presented with recurrent painless hematochezia. Has had this issue since almost 2018. Last eval was with sigmoidoscopy in Jun this year but prep was sub optimal however no active bleeding was seen. Was also recently admitted at [facility]SH (no scopes or transfusions over there) and discharged few days before presenting to [facility]. Last colonoscopy was 2017. He is not [...] CTA Assessment & Plan (2025 12:16 PM SANITARIAN AIDE): Patient presented with recurrent painless hematochezia. Has had this issue since almost 2018. Last eval was with sigmoidoscopy in jun this year but prep was sub optimal however no active bleeding was seen. Was also recently admitted at [facility]SH (no scopes or transfusions over there) and discharged few days before presenting to [facility]. Last colonoscopy was 2017. He is not [...] CTA Assessment & Plan (04/03/2025 12:17 PM SANITARIAN AIDE): Patient presented with recurrent painless hematochezia. Has had this issue since almost 2018. Last eval was with sigmoidoscopy in jun this year but prep was sub optimal however no active bleeding was seen. Was also recently admitted at [facility]SH (no scopes or transfusions over there) and discharged few days before presenting to [facility]. Last colonoscopy was 2017. He is not [...] CTA Assessment & Plan (04/02/2025 6:17 AM SANITARIAN AIDE): Melena + BRBPR. - recurrent GIB since 2018. Hospitalized this year 07/2024 (flex sig done but no active bleeding) and 4 days prior at [facility] (records not available but no transfusions or [...] 04/02/2025 Assessment & Plan (04/06/2025 10:50 AM SANITARIAN AIDE): OSH TTE 07/2024 w/ EF 35-40%. Home [...] trend Assessment & Plan (04/05/2025 3:48 PM SANITARIAN AIDE): OSH TTE 07/2024 w/ EF 35-40%. Home [...] trend Assessment & Plan (2025 12:16 PM SANITARIAN AIDE): OSH TTE 07/2024 w/ EF 35-40%. Home [...] trend Assessment & Plan (04/03/2025 12:17 PM SANITARIAN AIDE): OSH TTE 07/2024 w/ EF 35-40%. Home meds include coreg and lasix 40 bid. Appears euvolumic without signs of exacerbation. CXR on 04/02 without edema. 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 Assessment & Plan (04/05/2025 3:48 PM SANITARIAN AIDE): - Resuming home xanax and zoloft. Assessment & Plan (2025 12:16 PM SANITARIAN AIDE): Resuming home xanax and zoloft Assessment & Plan (04/03/2025 12:17 PM SANITARIAN AIDE): Resuming home xanax and zoloft Assessment & Plan (04/02/2025 6:17 AM SANITARIAN AIDE): Xanax prn nightly Chronic respiratory failure with hypoxia 025 Assessment & Plan (04/06/2025 10:50 AM SANITARIAN AIDE): On 3 L O2 at baseline. No [...] discharge. Assessment & Plan (04/05/2025 3:48 PM SANITARIAN AIDE): On 3 L O2 at baseline. No [...] discharge. Assessment & Plan (2025 12:16 PM SANITARIAN AIDE): On 3 L o2 at baseline. No [...] discharge. Assessment & Plan (04/03/2025 12:17 PM SANITARIAN AIDE): On 3 L o2 at baseline. No [...] dyspnea Assessment & Plan (04/02/2025 6:17 AM SANITARIAN AIDE): From COPD, on 3L O2 - only on albuterol at home Plan: - duonebs prn Goals of care, counseling/discussion 04/02/2025 Assessment & Plan (04/06/2025 10:50 AM SANITARIAN AIDE): No family members so POA is friendWeiell . - Code status was confirmed to be DNR/DNI on 04/02 by admitting physician Assessment & Plan (04/05/2025 3:48 PM SANITARIAN AIDE): No family members so POA is friendWeiell . - Code status was confirmed to be DNR/DNI on 04/02 by admitting physician Assessment & Plan (2025 12:16 PM SANITARIAN AIDE): No family members so POA = Friend Wei Tejada [phone]. Code status was confirmed to be DNRDNI on 04/02 by admitting physician Assessment & Plan (04/03/2025 12:17 PM SANITARIAN AIDE): No family members so POA = Friend Wei Tejada [phone] - confirmed DNRDNI on 04/02 Assessment & Plan (04/02/2025 6:17 AM SANITARIAN AIDE): No family members so POA = Friend Wei Tejada [phone] - confirmed DNRDNI on 04/02 History of CAD (coronary artery disease) 025 Assessment & Plan (04/06/2025 10:50 AM SANITARIAN AIDE): - S/p CABG and ICD. Cont home asa and statin. Assessment & Plan (04/05/2025 3:48 PM SANITARIAN AIDE): - S/p CABG and ICD. Cont home asa and statin. Assessment & Plan (2025 12:16 PM SANITARIAN AIDE): S/p CABG and ICD. Cont home asa and statin Assessment & Plan (04/03/2025 12:17 PM SANITARIAN AIDE): S/p CABG and ICD. Cont home asa and statin Assessment & Plan (04/02/2025 6:17 AM SANITARIAN AIDE): S/p CABG - statin - hold ASA Primary hypertension 02/25/2020 Assessment & Plan (04/02/2025 6:17 AM SANITARIAN AIDE): Hold antihypertensives d/t GIB Resolved Problems Problem Noted Date Diagnosed Date Resolved Date FELICITY (acute kidney injury) 04/02/2025 Assessment & Plan (04/03/2025 12:17 PM SANITARIAN AIDE): Cr at baseline Assessment & Plan (04/02/2025 6:17 AM SANITARIAN AIDE): Cr 1.2 (Cr 0.9 in 07/2024) - likely pre-renal. No signs of heart failure to suggest cardiorenal Plan: - may need a bit of fluids Encounters Date Type Department Care Team Description 04/01/2025 10:17 PM SANITARIAN AIDE - 04/06/2025 10:33 PM SANITARIAN AIDE Hospital Encounter [facility] [address] [place] [address] Aristeo Plunkett Jr., MD [place], [place], [...] on file Legal Sex Male 9:52 PM SANITARIAN AIDE Gender Identity Not on file Sexual Orientation Not on file Last Filed Vital Signs Vital Sign Reading Time Taken Comments Blood Pressure 148/61 04/06/2025 7:46 PM SANITARIAN AIDE Pulse 102 04/06/2025 9:05 PM SANITARIAN AIDE Temperature 36.8 C (98.2 F) 04/06/2025 7:46 PM SANITARIAN AIDE Respiratory Rate 18 04/06/2025 9:05 PM SANITARIAN AIDE Oxygen Saturation 95% 04/06/2025 9:05 PM SANITARIAN AIDE Inhaled Oxygen Concentration - - Weight 63.5 kg (140 lb 1.6 oz) 04/03/2025 1:35 P M SANITARIAN AIDE Height - - Body Mass Index - [...] URINALYSIS, MICROSCOPIC ONLY Routine 04/06/2025 9:17 AM SANITARIAN AIDE URINE CULTURE Routine 04/06/2025 9:17 AM SANITARIAN AIDE URINALYSIS AND REFLEX TO MICROSCOPIC AND CULTURE Routine 04/06/2025 9:17 AM SANITARIAN AIDE CBC WITHOUT DIFFERENTIAL Timed 04/06/2025 8:59 AM SANITARIAN AIDE MAGNESIUM Routine 04/05/2025 11:51 PM SANITARIAN AIDE EGFR Routine 04/05/2025 11:51 PM SANITARIAN AIDE BASIC METABOLIC PANEL Routine 04/05/2025 11:51 PM SANITARIAN AIDE CBC WITHOUT DIFFERENTIAL Timed 04/05/2025 11:51 PM SANITARIAN AIDE POCT GLUCOSE DEVICE Routine 04/05/2025 8 :36 AM SANITARIAN AIDE CBC WITHOUT DIFFERENTIAL Timed 04/05/2025 6:59 AM SANITARIAN AIDE EGFR Routine 2025 9:00 PM SANITARIAN AIDE TYPE AND SCREEN Timed 2025 9:00 PM SANITARIAN AIDE BASIC METABOLIC PANEL Routine 2025 9:00 PM SANITARIAN AIDE CBC WITHOUT DIFFERENTIAL Timed 2025 9:00 PM SANITARIAN AIDE CBC WITHOUT DIFFERENTIAL Timed 2025 9:49 AM SANITARIAN AIDE IRON PROFILE W/ IBC Routine 04/03/2025 8 :22 PM SANITARIAN AIDE FERRITIN Routine 04/03/2025 8:22 PM SANITARIAN AIDE EGFR Routine 04/03/2025 8:22 PM SANITARIAN AIDE BASIC METABOLIC PANEL Routine 04/03/2025 8:22 PM SANITARIAN AIDE CBC WITHOUT DIFFERENTIAL Timed 04/03/2025 8:22 PM SANITARIAN AIDE CBC WITHOUT DIFFERENTIAL Routine 04/03/2025 4:01 AM SANITARIAN AIDE EGFR Routine 04/02/2025 7:30 PM SANITARIAN AIDE CBC WITHOUT DIFFERENTIAL Timed 04/02/2025 7:30 PM SANITARIAN AIDE BASIC METABOLIC PANEL Routine 04/02/2025 7:30 PM SANITARIAN AIDE CBC WITHOUT DIFFERENTIAL Timed 04/02/2025 7:30 PM SANITARIAN AIDE EGFR Timed 04/02/2025 1:23 PM SANITARIAN AIDE CBC WITHOUT DIFFERENTIAL Timed 04/02/2025 1:23 PM SANITARIAN AIDE BASIC METABOLIC PANEL Timed 04/02/2025 1:23 PM SANITARIAN AIDE XR CHEST 1 VIEW ED Urgent/IP Urgent 04/02/2025 10:17 AM SANITARIAN AIDE CBC WITHOUT DIFFERENTIAL STAT 04/02/2025 6:14 AM SANITARIAN AIDE ECG 12-LEAD Routine 04/02/2025 3:30 AM SANITARIAN AIDE CBC WITHOUT DIFFERENTIAL Timed 04/02/2025 3:10 AM SANITARIAN AIDE TROPONIN I HIGH-SENSITIVITY 2-HOUR Timed 04/02/2025 3:10 AM SANITARIAN AIDE BLOOD GAS, VENOUS STAT 04/02/2025 1:3 4 AM SANITARIAN AIDE TROPONIN I HIGH-SENSITIVITY SERIES (BASELINE, 2HR, 4HR, 6HR) STAT 04/02/2025 1:11 AM SANITARIAN AIDE PRO B-TYPE NATRIURETIC PEPTIDE STAT 04/02/2025 1:10 AM SANITARIAN AIDE B CHECK SAMPLE STAT 04/02/2025 12:[address] ABDOMEN PELVIS W WO CONTRAST ED Urgent/IP Urgent 04/02/2025 12:37 AM SANITARIAN AIDE POCT CREATININE - DEVICE Routine 04/01/2025 11:42 PM SANITARIAN AIDE HEPARIN ANTI FACTOR XA ACTIVITY STAT 04/01/2025 10:51 PM SANITARIAN AIDE EGFR STAT 04/01/2025 10:51 PM SANITARIAN AIDE DIFFERENTIAL AUTO STAT 04/01/2025 10: 51 PM SANITARIAN AIDE TYPE AND SCREEN STAT 04/01/2025 10:51 PM SANITARIAN AIDE APTT STAT 04/01/2025 10:51 PM SANITARIAN AIDE PROTIME-INR STAT 04/01/2025 10:51 PM SANITARIAN AIDE COMPREHENSIVE METABOLIC PANEL STAT 04/01/2025 10:51 PM SANITARIAN AIDE CBC WITH AUTO DIFFERENTIAL STAT 04/01/2025 10:51 PM SANITARIAN AIDE from Last 3 Months Results * (ABNORMAL) Urinalysis reflex to microscopic and culture Urine (04/06/2025 9:17 AM SANITARIAN AIDE) Color, ur Cristina Yellow Clarity, ur Cloudy(A) Clear [facility] Specific gravity, ur 1.019 1.003 - 1.030 [facility] pH, urine 5.5 [facility] Comment: Interpretive Data U rine pH is affected by diet, medications, systemic acid-base disturbances, and renal tubular function. pH may affect urinary stone formation. For example, urine pH below 6.0 may help reduce the tendency for calcium phosphate stones and pH greater than 6.0 may reduce the tendency for uric acid stone formation. Source: [facility] Current Interpretive Data was last revised on 2017 Protein, ur ql 1+(A) Negative [facility] Glucose, ur ql Negative Negative [facility] Ketones, ur Negative Negative [facility] Bilirubin, ur Negative Negative [facility] Blood, ur 3+(A) Negative [facility] Urobilinogen, ur <2.0 <2.0 mg/dL [facility] Nitrite, ur Negative Negative [facility] Leukocyte esterase, ur 3+(A) Negative [facility] UA reflex comment Reflex to microscopic UA will be performed. [facility] Urine 04/06/2025 9:17 AM SANITARIAN AIDE 04/06/2025 9:48 AM SANITARIAN AIDE Kathryn JALLOH LAB MICROBIOLOGY - NERAL ORDERABLES Final Result [facility] Department [place] [address] * (ABNORMAL) Urinalysis, microscopic only (04/06/2025 9:17 AM SANITARIAN AIDE) WBC, ur >50(A) 0 - 5 /HPF RBC, ur >50(A) 0 - 2 /HPF [facility] Epithelial cells, squamous, ur 1-5 0 - 5 /HPF [facility] Bacteria, ur 1+(A) [facility] Mucous, ur Present(A) [facility] Hyaline casts, ur 6-10 0 - 10 /LPF [facility] Culture Reflex Comment Reflex to urine culture will be performed. [facility] Urine 04/06/2025 9:17 AM SANITARIAN AIDE 04/06/2025 9:48 AM SANITARIAN AIDE Kathryn JALLOH LAB URINE ORDERABLES Final Result [facility] [place] [address] * Urine culture Urine (04/06/2025 9:17 AM SANITARIAN AIDE) Report Final Report: No growth Urine 04/06/2025 9:17 AM SANITARIAN AIDE 04/06/2025 10:06 AM SANITARIAN AIDE Narrative [facility] - 04/07/2025 10:58 AM SANITARIAN AIDE Urine culture reflexed based upon urinalysis results. Testing performed by [facility] Microbiology Laboratory ([phone]) Kathryn JALLOH LAB MICROBIOLOGY - GE NERAL ORDERABLES Final Result Performing Organization Address City/[facility] Co de Phone Number [facility] Department [place] [address] * (ABNORMAL) CBC without differential (04/06/2025 8:59 AM SANITARIAN AIDE) WBC 15.79(H) 3.80 - 9.90 K/cumm Hgb 8.0(L) 13.0 - 17.5 g/dL [facility] Hct 24.6(L) 38.9 - 50.3 % [facility] Plt 293 150 - 400 K/cumm [facility] MPV 9.9 9.1 - 12.3 fL [facility] RBC 2.50(L) 4.30 - 5.80 M/cumm [facility] MCV 98.4(H) 81.3 - 96.4 fL [facility] MCH 32.0 27.1 - 33.3 pg [facility] MCHC 32.5 32.3 - 35.7 g/dL [facility] RDW CV 14.4 11.1 - 14.9 % [facility] RDW SD 49.0(H) 35.7 - 48.1 fL [facility] NRBC abs 0.00 0.00 - 0.01 K/cumm [facility] Blood 04/06/2025 8:59 AM SANITARIAN AIDE 04/06/2025 9:43 AM SANITARIAN AIDE Jennifer Burris MD LAB BLOOD ORDERABLES Final Re sult Performing Organization Address [facility] Co de Phone Number [facility] [place] [address] * eGFR (04/05/2025 11:51 PM SANITARIAN AIDE) eGFR 68 >=60 mL/min/1. 73 m2 Comment: [...] reviewed 2021. Blood 04/05/2025 11:5 1 PM SANITARIAN AIDE 04/06/2025 12:43 AM SANITARIAN AIDE us Jennifer Burris MD LAB BLOOD ORDERABLES Final Re sult Performing Organization Address [facility] Co de Phone Number [facility] Department [place] [address] * (ABNORMAL) CBC without differential (04/05/2025 11:51 PM SANITARIAN AIDE) WBC 9.47 3.80 - 9.90 K/cumm Hgb 7.1(L) 13.0 - 17.5 g/dL [facility] Hct 22.7(L) 38.9 - 50.3 % [facility] Plt 241 150 - 400 K/cumm [facility] MPV 10.0 9.1 - 12.3 fL [facility] RBC 2.25(L) 4.30 - 5.80 M/cumm [facility] MCV 100.9(H) 81.3 - 96.4 fL [facility] MCH 31.6 27.1 - 33.3 pg [facility] MCHC 31.3(L) 32.3 - 35.7 g/dL [facility] RDW CV 14.2 11.1 - 14.9 % [facility] RDW SD 51.0(H) 35.7 - 48.1 fL [facility] NRBC abs 0.00 0.00 - 0.01 K/cumm [facility] Blood 04/05/2025 11:5 1 PM SANITARIAN AIDE 04/06/2025 12:44 AM SANITARIAN AIDE us Jennifer Burris MD LAB BLOOD ORDERABLES Final Re sult [facility] Department [place] [address] * Magnesium (04/05/2025 11:51 PM SANITARIAN AIDE) Magnesium 2.0 1.4 - 2.5 mg/dL Blood 04/05/2025 11:5 1 PM SANITARIAN AIDE 04/06/2025 12:43 AM SANITARIAN AIDE us Suyapa Syed MD LAB BLOOD ORDERABLES Final Resul t [facility] Department [place] [address] * (ABNORMAL) Basic metabolic panel (04/05/2025 11:51 PM SANITARIAN AIDE) Sodium 143 135 - 145 mmol/L Potassium, pl 3.2(L) 3.3 - 4.9 mmol/L [facility] Chloride 98 97 - 110 mmol/L [facility] CO2 38(H) 22 - 32 mmol/L [facility] Anion gap 7 2 - 15 mmol/L [facility] BUN 17 6 - 25 mg/dL [facility] Creatinine 1.08 0.80 - 1.30 mg/dL [facility] Glucose 105 70 - 199 mg/dL [facility] Comment: Interpretive Data Fasting glucose >/= [...] 2022. Calcium 8.1(L) 8.5 - 10.3 mg/dL [facility] Blood 04/05/2025 11:5 1 PM SANITARIAN AIDE 04/06/2025 12:43 AM SANITARIAN AIDE us Jennifer Burris MD LAB BLOOD ORDERABLES Final Re sult Performing Organization Address [facility]/ZIP Co de Phone Number [facility] Department [place] [address] * POCT glucose (04/05/2025 8:36 AM SANITARIAN AIDE) [facility] Glucose, POC 114 70 - 199 mg/dL Blood 04/05/2025 8:36 AM SANITARIAN AIDE 04/05/2025 8:36 AM SANITARIAN AIDE us Suyapa Syed MD LAB POCT ORDERABLES - DEVICE Fin al Result Performing Organization Address [facility]/ZIP Co de Phone Number [facility] Department [place] [address] * (ABNORMAL) CBC without differential (04/05/2025 6:59 AM SANITARIAN AIDE) [facility] WBC 14.23(H) 3.80 - 9.90 K/cumm Hgb 7.8(L) 13.0 - 17.5 g/dL [facility] Hct 24.6(L) 38.9 - 50.3 % [facility] Plt 275 150 - 400 K/cumm [facility] MPV 9.7 9.1 - 12.3 fL [facility] RBC 2.50(L) 4.30 - 5.80 M/cumm [facility] MCV 98.4(H) 81.3 - 96.4 fL [facility] MCH 31.2 27.1 - 33.3 pg [facility] MCHC 31.7(L) 32.3 - 35.7 g/dL [facility] RDW CV 13.7 11.1 - 14.9 % [facility] RDW SD 48.4(H) 35.7 - 48.1 fL [facility] NRBC abs 0.00 0.00 - 0.01 K/cumm [facility] Blood 04/05/2025 6:59 AM SANITARIAN AIDE 04/05/2025 7:25 AM SANITARIAN AIDE us Jennifer Burris MD LAB BLOOD ORDERABLES Final Re sult [facility] Department [place] [address] * eGFR (2025 9:00 PM SANITARIAN AIDE) [facility] eGFR 61 >=60 mL/min/1. 73 m2 Comment: [...] last reviewed 2021. Blood 2025 9:00 PM SANITARIAN AIDE 2025 9:34 PM SANITARIAN AIDE us Jennifer Burris MD LAB BLOOD ORDERABLES Final Re sult [facility] Department [place] [address] * (ABNORMAL) CBC without differential (2025 9:00 PM SANITARIAN AIDE) WBC 11.25(H) 3.80 - 9.90 K/cumm Hgb 7.5(L) 13.0 - 17.5 g/dL [facility] Hct 24.2(L) 38.9 - 50.3 % [facility] Plt 249 150 - 400 K/cumm [facility] MPV 9.9 9.1 - 12.3 fL [facility] RBC 2.41(L) 4.30 - 5.80 M/cumm [facility] MCV 100.4(H) 81.3 - 96.4 fL [facility] MCH 31.1 27.1 - 33.3 pg [facility] MCHC 31.0(L) 32.3 - 35.7 g/dL [facility] RDW CV 13.6 11.1 - 14.9 % [facility] RDW SD 49.1(H) 35.7 - 48.1 fL [facility] NRBC abs 0.00 0.00 - 0.01 K/cumm [facility] Blood 2025 9:00 PM SANITARIAN AIDE 2025 9:33 PM SANITARIAN AIDE Jennifer Burris MD LAB BLOOD ORDERABLES Final Re sult Performing Organization Address City/[facility]/ZIP Co de Phone Number [facility] [place] [address] * Type and screen (2025 9:00 PM SANITARIAN AIDE) ABO Rh O Positive Todd, indirect Negative [facility] Blood 2025 9:00 PM SANITARIAN AIDE 2025 9:50 PM SANITARIAN AIDE Narrative [facility] - 2025 11:01 PM SANITARIAN AIDE Has the patient had Daratumumab or Isatuximab in the past 6 months?->Unknown Lida Boraj MD PhD LAB BLOOD BANK TEST ORDERAB LES Final Result Performing Organization Address [facility] Co de Phone Number [facility] [place] [address] * (ABNORMAL) Basic metabolic panel (2025 9:00 PM SANITARIAN AIDE) Pathologist [facility] Sodium 141 135 - 145 mmol/L Potassium, pl 3.7 3.3 - 4.9 mmol/L [facility] Chloride 99 97 - 110 mmol/L [facility] CO2 37(H) 22 - 32 mmol/L [facility] Anion gap 5 2 - 15 mmol/L [facility] BUN 20 6 - 25 mg/dL [facility] Creatinine 1.18 0.80 - 1.30 mg/dL [facility] Glucose 91 70 - 199 mg/dL [facility] Comment: Interpretive Data Fasting glucose >/= [...] 2022. Calcium 8.8 8.5 - 10.3 mg/dL [facility] Blood 2025 9:00 PM SANITARIAN AIDE 2025 9:34 PM SANITARIAN AIDE Jennifer Burris MD LAB BLOOD ORDERABLES Final Re sult Performing Organization Address City/[facility]/ZIP Co de Phone Number [facility] Department [place] [employer] [place] [address] * (ABNORMAL) CBC without differential (2025 9:49 AM SANITARIAN AIDE) WBC 11.45(H) 3.80 - 9.90 K/cumm Hgb 7.9(L) 13.0 - 17.5 g/dL [facility] Hct 24.7(L) 38.9 - 50.3 % [facility] Plt 233 150 - 400 K/cumm [facility] MPV 9.8 9.1 - 12.3 fL [facility] RBC 2.52(L) 4.30 - 5.80 M/cumm [facility] MCV 98.0(H) 81.3 - 96.4 fL [facility] MCH 31.3 27.1 - 33.3 pg [facility] MCHC 32.0(L) 32.3 - 35.7 g/dL [facility] RDW CV 13.7 11.1 - 14.9 % [facility] RDW SD 48.1 35.7 - 48.1 fL [facility] NRBC abs 0.00 0.00 - 0.01 K/cumm [facility] Blood 2025 9:49 AM SANITARIAN AIDE 2025 10:50 AM SANITARIAN AIDE Jennifer Burris MD LAB BLOOD ORDERABLES Final Re sult Performing Organization Address City/[facility]/ZIP Co de Phone Number [facility] Department [place] [address] * eGFR (04/03/2025 8:22 PM SANITARIAN AIDE) eGFR 72 >=60 mL/min/1. 73 m2 Comment: [...] last reviewed 2021. Blood 04/03/2025 8:22 PM SANITARIAN AIDE 04/03/2025 8:46 PM SANITARIAN AIDE Jennifer Burris MD LAB BLOOD ORDERABLES Final Re sult Performing Organization Address City/[facility]/ZIP Co de Phone Number [facility] Department [place] [address] * (ABNORMAL) Iron profile w/ IBC (04/03/2025 8:22 PM SANITARIAN AIDE) Pathologist [facility] Iron 40(L) 50 - 150 mcg/dL TIBC 219(L) 250 - 400 mcg/dL [facility] Transferrin saturation 18(L) 20 - 50 % [facility] Blood 04/03/2025 8:22 PM SANITARIAN AIDE 04/03/2025 8:46 PM SANITARIAN AIDE Jennifer Burris MD LAB BLOOD ORDERABLES Final Re sult [facility] Department [place] [address] * (ABNORMAL) CBC without differential (04/03/2025 8:22 PM SANITARIAN AIDE) Pathologist [facility] WBC 12.92(H) 3.80 - 9.90 K/cumm Hgb 8.1(L) 13.0 - 17.5 g/dL [facility] Hct 24.8(L) 38.9 - 50.3 % [facility] Plt 248 150 - 400 K/cumm [facility] MPV 9.9 9.1 - 12.3 fL [facility] RBC 2.55(L) 4.30 - 5.80 M/cumm [facility] MCV 97.3(H) 81.3 - 96.4 fL [facility] MCH 31.8 27.1 - 33.3 pg [facility] MCHC 32.7 32.3 - 35.7 g/dL [facility] RDW CV 13.5 11.1 - 14.9 % [facility] RDW SD 47.3 35.7 - 48.1 fL [facility] NRBC abs 0.00 0.00 - 0.01 K/cumm [facility] Blood 04/03/2025 8:22 PM SANITARIAN AIDE 04/03/2025 8:47 PM SANITARIAN AIDE us Jennifer Burris MD LAB BLOOD ORDERABLES Final Re sult [facility] Department [place] [address] * Ferritin (04/03/2025 8:22 PM SANITARIAN AIDE) Pathologist [facility] Ferritin 48 30 - 400 ng/mL Blood 04/03/2025 8:22 PM SANITARIAN AIDE 04/03/2025 8:46 PM SANITARIAN AIDE us Jennifer Burris MD LAB BLOOD ORDERABLES Final Re sult [facility] Department [place] [address] * (ABNORMAL) Basic metabolic panel (04/03/2025 8:22 PM SANITARIAN AIDE) Pathologist [facility] Sodium 140 135 - 145 mmol/L Potassium, pl 3.9 3.3 - 4.9 mmol/L [facility] Chloride 99 97 - 110 mmol/L [facility] CO2 35(H) 22 - 32 mmol/L [facility] Anion gap 6 2 - 15 mmol/L [facility] BUN 18 6 - 25 mg/dL [facility] Creatinine 1.03 0.80 - 1.30 mg/dL [facility] Glucose 134 70 - 199 mg/dL [facility] Comment: Interpretive Data Fasting glucose >/= [...] 2022. Calcium 8.5 8.5 - 10.3 mg/dL [facility] Blood 04/03/2025 8:22 PM SANITARIAN AIDE 04/03/2025 8:46 PM SANITARIAN AIDE Jennifer Burris MD LAB BLOOD ORDERABLES Final Re sult [facility] Department [place] [address] * (ABNORMAL) CBC without differential (04/03/2025 4:01 AM SANITARIAN AIDE) Pathologist [facility] WBC 10.04(H) 3.80 - 9.90 K/cumm Hgb 7.8(L) 13.0 - 17.5 g/dL [facility] Hct 23.3(L) 38.9 - 50.3 % [facility] Plt 217 150 - 400 K/cumm [facility] MPV 9.9 9.1 - 12.3 fL [facility] RBC 2.45(L) 4.30 - 5.80 M/cumm [facility] MCV 95.1 81.3 - 96.4 fL [facility] MCH 31.8 27.1 - 33.3 pg [facility] MCHC 33.5 32.3 - 35.7 g/dL [facility] RDW CV 13.4 11.1 - 14.9 % [facility] RDW SD 46.3 35.7 - 48.1 fL [facility] NRBC abs 0.00 0.00 - 0.01 K/cumm [facility] Blood 04/03/2025 4:01 AM SANITARIAN AIDE 04/03/2025 4:29 AM SANITARIAN AIDE Rubin Ricardo MD LAB BLOOD ORDERABLES F inal Result [facility] Department [place] [address] * eGFR (04/02/2025 7:30 PM SANITARIAN AIDE) eGFR 69 >=60 mL/min/1. 73 m2 Comment: [...] last reviewed 2021. Blood 04/02/2025 7:30 PM SANITARIAN AIDE 04/02/2025 8:30 PM SANITARIAN AIDE us Jennifer Burris MD LAB BLOOD ORDERABLES Final Re sult [facility] Department [place] [address] * (ABNORMAL) CBC without differential (04/02/2025 7:30 PM SANITARIAN AIDE) WBC 10.71(H) 3.80 - 9.90 K/cumm Hgb 8.2(L) 13.0 - 17.5 g/dL [facility] Hct 25.3(L) 38.9 - 50.3 % [facility] Plt 250 150 - 400 K/cumm [facility] MPV 9.9 9.1 - 12.3 fL [facility] RBC 2.61(L) 4.30 - 5.80 M/cumm [facility] MCV 96.9(H) 81.3 - 96.4 fL [facility] MCH 31.4 27.1 - 33.3 pg [facility] MCHC 32.4 32.3 - 35.7 g/dL [facility] RDW CV 13.4 11.1 - 14.9 % [facility] RDW SD 47.4 35.7 - 48.1 fL [facility] NRBC abs 0.00 0.00 - 0.01 K/cumm [facility] Blood 04/02/2025 7:30 PM SANITARIAN AIDE 04/02/2025 8:31 PM SANITARIAN AIDE us Jennifer Burris MD LAB BLOOD ORDERABLES Final Re sult [facility] of Laboratories [place], [place] [id number] * (ABNORMAL) CBC without differential (04/02/2025 7:30 PM SANITARIAN AIDE) WBC 10.91(H) 3.80 - 9.90 K/cumm Hgb 8.2(L) 13.0 - 17.5 g/dL [facility] Hct 25.7(L) 38.9 - 50.3 % [facility] Plt 251 150 - 400 K/cumm [facility] MPV 10.1 9.1 - 12.3 fL [facility] RBC 2.64(L) 4.30 - 5.80 M/cumm [facility] MCV 97.3(H) 81.3 - 96.4 fL [facility] MCH 31.1 27.1 - 33.3 pg [facility] MCHC 31.9(L) 32.3 - 35.7 g/dL [facility] RDW CV 13.4 11.1 - 14.9 % [facility] RDW SD 47.3 35.7 - 48.1 fL [facility] NRBC abs 0.00 0.00 - 0.01 K/cumm [facility] Blood 04/02/2025 7:30 PM SANITARIAN AIDE 04/02/2025 8:32 PM SANITARIAN AIDE us Jennifer Burris MD LAB BLOOD ORDERABLES Final Re sult [facility] Department [place] [address] * (ABNORMAL) Basic metabolic panel (04/02/2025 7:30 PM SANITARIAN AIDE) Pathologist [facility] Sodium 143 135 - 145 mmol/L Potassium, pl 3.5 3.3 - 4.9 mmol/L [facility] Chloride 100 97 - 110 mmol/L [facility] CO2 36(H) 22 - 32 mmol/L [facility] Anion gap 7 2 - 15 mmol/L [facility] BUN 18 6 - 25 mg/dL [facility] Creatinine 1.07 0.80 - 1.30 mg/dL [facility] Glucose 165 70 - 199 mg/dL [facility] Comment: Interpretive Data Fasting glucose >/= [...] 2022. Calcium 8.9 8.5 - 10.3 mg/dL [facility] Blood 04/02/2025 7:30 PM SANITARIAN AIDE 04/02/2025 8:30 PM SANITARIAN AIDE us Jennifer Burris MD LAB BLOOD ORDERABLES Final Re sult [facility] Department [place] [address] * eGFR (04/02/2025 1:23 PM SANITARIAN AIDE) eGFR 73 >=60 mL/min/1. 73 m2 Comment: [...] last reviewed 2021. Blood 04/02/2025 1:23 PM SANITARIAN AIDE 04/02/2025 1:46 PM SANITARIAN AIDE us Lida Borja MD PhD LAB BLOOD ORDERABLES Final Result Performing Organization Address [facility] de Phone Number [facility] Department [place] [address] * (ABNORMAL) CBC without differential (04/02/2025 1:23 PM SANITARIAN AIDE) [facility] WBC 10.85(H) 3.80 - 9.90 K/cumm Hgb 8.4(L) 13.0 - 17.5 g/dL [facility] Hct 25.4(L) 38.9 - 50.3 % [facility] Plt 174 150 - 400 K/cumm [facility] MPV 10.1 9.1 - 12.3 fL [facility] RBC 2.66(L) 4.30 - 5.80 M/cumm [facility] MCV 95.5 81.3 - 96.4 fL [facility] MCH 31.6 27.1 - 33.3 pg [facility] MCHC 33.1 32.3 - 35.7 g/dL [facility] RDW CV 13.4 11.1 - 14.9 % [facility] RDW SD 47.0 35.7 - 48.1 fL [facility] NRBC abs 0.00 0.00 - 0.01 K/cumm [facility] Blood 04/02/2025 1:23 PM SANITARIAN AIDE 04/02/2025 1:46 PM SANITARIAN AIDE us Jennifer Burris MD LAB BLOOD ORDERABLES Final Re sult Performing Organization Address [facility] Co de Phone Number [facility] Department [place] [address] * (ABNORMAL) Basic metabolic panel (04/02/2025 1:23 PM SANITARIAN AIDE) [facility] Sodium 143 135 - 145 mmol/L Potassium, pl 4.0 3.3 - 4.9 mmol/L [facility] Chloride 99 97 - 110 mmol/L [facility] CO2 35(H) 22 - 32 mmol/L [facility] Anion gap 9 2 - 15 mmol/L [facility] BUN 21 6 - 25 mg/dL [facility] Creatinine 1.02 0.80 - 1.30 mg/dL [facility] Glucose 138 70 - 199 mg/dL [facility] Comment: Interpretive Data Fasting glucose >/= [...] 2022. Calcium 8.9 8.5 - 10.3 mg/dL [facility] Blood 04/02/2025 1:23 PM SANITARIAN AIDE 04/02/2025 1:46 PM SANITARIAN AIDE us Lida Borja MD PhD LAB BLOOD ORDERABLES Final Result [facility] Department [place] [address] * XR Chest 1 View (04/02/2025 10:17 AM SANITARIAN AIDE) Anatomical Region Laterality Modality Body, Chest N/A Digital Radiogra phy 04/02/2025 1:03 PM SANITARIAN AIDE Impressions 04/02/2025 1:03 PM SANITARIAN AIDE No prior images available for comparison. Left [...] Armando Martinez M.D. Narrative 04/02/2025 1:03 PM SANITARIAN AIDE EXAMINATION: 1 view chest radiograph Procedure Note [...] (ABNORMAL) CBC without differential (04/02/2025 6:14 AM SANITARIAN AIDE) WBC 11.27(H) 3.80 - 9.90 K/cumm Hgb 8.4(L) 13.0 - 17.5 g/dL [facility] Hct 25.3(L) 38.9 - 50.3 % [facility] Plt 210 150 - 400 K/cumm [facility] MPV 10.1 9.1 - 12.3 fL [facility] RBC 2.64(L) 4.30 - 5.80 M/cumm [facility] MCV 95.8 81.3 - 96.4 fL [facility] MCH 31.8 27.1 - 33.3 pg [facility] MCHC 33.2 32.3 - 35.7 g/dL [facility] RDW CV 13.3 11.1 - 14.9 % [facility] RDW SD 46.2 35.7 - 48.1 fL [facility] NRBC abs 0.00 0.00 - 0.01 K/cumm [facility] Blood 04/02/2025 6:14 AM SANITARIAN AIDE 04/02/2025 6:50 AM SANITARIAN AIDE us Lida Borja MD PhD LAB BLOOD ORDERABLES Final Result [facility] Department [place] [address] * ECG 12-LEAD (04/02/2025 3:30 AM SANITARIAN AIDE) Narrative [facility] - 04/02/2025 3:30 AM SANITARIAN AIDE Aristeo Plunkett Jr., MD 04/02/2025 3:31 AM [...] ECG ORDERABLES Final Result Performing Organization Address City/[facility]/ZIP Co de Phone Number [facility] * Troponin I high-sensitivity 2-hour (04/02/2025 3:10 AM SANITARIAN AIDE) Trop I hs 18 <=35 ng/L Comment: Interpretive Data For further hscTnI resources including the diagnostic algorithm and an aid in interpretation, copy and paste this link: https://bjhlab.testcatalog.org/show/hsTrop-1 Current Interpretive Data last revised 2019. Trop I hs delta 2 ng/L [facility] Trop I hs interp Insignificant [facility] Blood 04/02/2025 3:10 AM SANITARIAN AIDE 04/02/2025 3:42 AM SANITARIAN AIDE Bola Harris MD LAB BLOOD ORDERABLES F inal Result Performing Organization Address City/[facility]/ZIP Co de Phone Number [facility] Department [place] [address] * (ABNORMAL) CBC without differential (04/02/2025 3:10 AM SANITARIAN AIDE) Pathologist [facility] WBC 10.77(H) 3.80 - 9.90 K/cumm Hgb 7.7(L) 13.0 - 17.5 g/dL [facility] Hct 23.1(L) 38.9 - 50.3 % [facility] Plt 192 150 - 400 K/cumm [facility] MPV 10.1 9.1 - 12.3 fL [facility] RBC 2.42(L) 4.30 - 5.80 M/cumm [facility] MCV 95.5 81.3 - 96.4 fL [facility] MCH 31.8 27.1 - 33.3 pg [facility] MCHC 33.3 32.3 - 35.7 g/dL [facility] RDW CV 13.2 11.1 - 14.9 % [facility] RDW SD 45.5 35.7 - 48.1 fL [facility] NRBC abs 0.00 0.00 - 0.01 K/cumm [facility] Blood 04/02/2025 3:10 AM SANITARIAN AIDE 04/02/2025 3:42 AM SANITARIAN AIDE Bola Harris MD LAB BLOOD ORDERABLES F inal Result [facility] Department [place] [address] * (ABNORMAL) Blood gas, venous (04/02/2025 1:34 AM SANITARIAN AIDE) Pathologist [facility] pH, Venous 7.33 7.32 - 7.43 PCO2, Venous 72(H) 40 - 50 mmHg [facility] PO2, Venous 36 mmHg [facility] Comment: Interpretive Data No Reference Range Established Current Interpretive Data was last revised on 2017. HCO3 Venous, Calculated 37(H) 20 - 30 mmol/L [facility] BE, venous 10 mmol/L [facility] Comment: Interpretive Data No Reference Range Established Current Interpretive Data was last revised on 2017. Blood 04/02/2025 1:34 AM SANITARIAN AIDE 04/02/2025 1:35 AM SANITARIAN AIDE us Aristeo Plunkett Jr., MD LAB BLOOD ORDERABLES F inal Result Performing Organization Address [facility] de Phone Number [facility] Department [place] [address] * Troponin I high-sensitivity series (baseline, 2hr, 4hr, 6hr) (04/02/2025 1:11 AM SANITARIAN AIDE) Trop I hs 16 <=35 ng/L Comment: Interpretive Data For further hscTnI resources including the diagnostic algorithm and an aid in interpretation, copy and paste this link: https://bjhlab.testcatalog.org/show/hsTrop-[email or web address] Current Interpretive Data last revised 2019. Blood 04/02/2025 1:11 AM SANITARIAN AIDE 04/02/2025 1:39 AM SANITARIAN AIDE us Bola Harris MD LAB BLOOD ORDERABLES F inal Result Performing Organization Address [facility] de Phone Number [facility] Department [place] [employer] [place] [address] * (ABNORMAL) Pro B-type natriuretic peptide (04/02/2025 1:10 AM SANITARIAN AIDE) NT-proBNP 902(H) <=450 pg/mL Comment: Interpretive Comments: [...] Heart J. 2006:27:330-337. 2. Mil RW, Tami AM. J. AM Stefania Cardiol: Cardiovasc Imag. 2009;2: 216- 225. Interpretive Data Last Revised Date: 2017. Blood 04/02/2025 1:10 AM SANITARIAN AIDE 04/02/2025 1:42 AM SANITARIAN AIDE us Aristeo Plunkett Jr., MD LAB BLOOD ORDERABLES F inal Result Performing Organization Address City/[facility] Co de Phone Number [facility] Department [place] [employer] [place] [address] * Check Sample (04/02/2025 12:57 AM SANITARIAN AIDE) ABO Rh O Positive [facility] HCLL OTHER 04/02/2025 12:5 7 AM SANITARIAN AIDE 04/02/2025 1:16 AM SANITARIAN AIDE us Kevin Resendez MD LAB BLOOD ORDERABLES Final R esult Performing Organization Address [facility] Co de Phone Number [facility] [place] [employer] [place] [address] [facility] * CT Abdomen Pelvis W WO Contrast (04/02/2025 12:37 AM SANITARIAN AIDE) Anatomical Region Laterality Modality Body N/A Computed Tomogra phy 04/02/2025 2:08 AM SANITARIAN AIDE Impressions 04/02/2025 8:33 AM SANITARIAN AIDE 1. Focus of hyperattenuation along the wall [...] Joss Chaney M.D. Narrative 04/02/2025 8:33 AM SANITARIAN AIDE EXAMINATION: Computed tomography of the abdomen and [...] Joss Chaney M.D. us Bola Harris MD IM CT PROCEDURES Emilee l Result * POCT creatinine (04/01/2025 11:42 PM SANITARIAN AIDE) Creatinine POC 1.2 0.8 - 1.3 mg/dL Blood 04/01/2025 11:4 2 PM SANITARIAN AIDE 04/01/2025 11:42 PM SANITARIAN AIDE Notinfile Unknown LAB POCT ORDERABLES - DEVICE F inal Result Performing Organization Address [facility] Co de Phone [facility] Department [place] [address] * (ABNORMAL) eGFR (04/01/2025 10:51 PM SANITARIAN AIDE) eGFR 59(L) >=60 mL/min/1. 73 m2 Comment: [...] reviewed 2021. Blood 04/01/2025 10:5 1 PM SANITARIAN AIDE 04/01/2025 11:10 PM SANITARIAN AIDE Bola Harris MD LAB BLOOD ORDERABLES F inal Result Performing Organization Address City/[facility]/ZIP Co de Phone Number [facility] Department [place] [address] * (ABNORMAL) Differential, auto (04/01/2025 10:51 PM SANITARIAN AIDE) Neutrophil abs 10.99(H) 1.50 - 6.50 K/cumm Imm gran abs 0.17(H) 0.00 - 0.10 K/cumm [facility] Lymphocyte abs 1.91 0.80 - 3.30 K/cumm [facility] Monocyte abs 0.65 0.20 - 0.80 K/cumm [facility] Eosinophil abs 0.70(H) 0.00 - 0.50 K/cumm [facility] Basophil abs 0.05 0.00 - 0.10 K/cumm [facility] Neutrophil pct 76.0 % [facility] Comment: Interpretive Data Percent cell count reference ranges are not reported, since discordance with absolute values may lead to misinterpretation of CBC data. Current Interpretive Data was last revised on 2017. Imm gran pct 1.2 % [facility] Comment: Interpretive Data Percent cell count reference ranges are not reported, since discordance with absolute values may lead to misinterpretation of CBC data. Current Interpretive Data was last revised on 2017. Lymphocyte pct 13.2 % [facility] Comment: Interpretive Data Percent cell count reference ranges are not reported, since discordance with absolute values may lead to misinterpretation of CBC data. Current Interpretive Data was last revised on 2017. Monocyte pct 4.5 % [facility] Comment: Interpretive Data Percent cell count reference ranges are not reported, since discordance with absolute values may lead to misinterpretation of CBC data. Current Interpretive Data was last revised on 2017. Eosinophil pct 4.8 % [facility] Comment: Interpretive Data Percent cell count reference ranges are not reported, since discordance with absolute values may lead to misinterpretation of CBC data. Current Interpretive Data was last revised on 2017. Basophil pct 0.3 % [facility] Comment: Interpretive Data Percent cell count reference ranges are not reported, since discordance with absolute values may lead to misinterpretation of CBC data. Current Interpretive Data was last revised on 2017. Blood 04/01/2025 10:5 1 PM SANITARIAN AIDE 04/01/2025 11:10 PM SANITARIAN AIDE us Bola Harris MD LAB BLOOD ORDERABLES F inal Result [facility] Department [place] [address] * Heparin anti factor Xa activity (04/01/2025 10:51 PM SANITARIAN AIDE) Pathologist [facility] Anti Factor Xa <0.10 [...] on 2018. Blood 04/01/2025 10:5 1 PM SANITARIAN AIDE 04/01/2025 11:02 PM SANITARIAN AIDE us Aristeo Plunkett Jr., MD LAB BLOOD ORDERABLES F inal Result [facility] Department [place] [address] * (ABNORMAL) CBC with auto differential (04/01/2025 10:51 PM SANITARIAN AIDE) Pathologist [facility] WBC 14.47(H) 3.80 - 9.90 K/cumm Hgb 10.1(L) 13.0 - 17.5 g/dL [facility] Hct 30.9(L) 38.9 - 50.3 % [facility] Plt 282 150 - 400 K/cumm [facility] MPV 10.0 9.1 - 12.3 fL [facility] RBC 3.22(L) 4.30 - 5.80 M/cumm [facility] MCV 96.0 81.3 - 96.4 fL [facility] MCH 31.4 27.1 - 33.3 pg [facility] MCHC 32.7 32.3 - 35.7 g/dL [facility] RDW CV 13.1 11.1 - 14.9 % [facility] RDW SD 45.5 35.7 - 48.1 fL [facility] NRBC abs 0.00 0.00 - 0.01 K/cumm [facility] Blood 04/01/2025 10:5 1 PM SANITARIAN AIDE 04/01/2025 11:10 PM SANITARIAN AIDE Bola Harris MD LAB BLOOD ORDERABLES F inal Result Performing Organization Address [facility] Co de Phone Number [facility] [place] [employer] [place] [address] * aPTT (04/01/2025 10:51 PM SANITARIAN AIDE) aPTT 28 26 - 38 sec Comment: Interpretive Data Heparin therapeutic range: 66.0 - 100.0 seconds. Range based on correlation with therapeutic heparin activity range of 0.3 - 0.7 Units/mL. Blood 04/01/2025 10:5 1 PM SANITARIAN AIDE 04/01/2025 11:02 PM SANITARIAN AIDE Bola Harris MD LAB BLOOD ORDERABLES F inal Result Performing Organization Address City/[facility] Co de Phone Number [facility] [place] [place] [address] * Protime-INR (04/01/2025 10:51 PM SANITARIAN AIDE) PT 11.1 10.2 - 13.5 sec INR 0.98 0.90 - 1.20 [facility] Comment: Interpretive data Oral anticoagulant therapeutic ranges: Venous thromboembolism prophylaxis or treatment: 2.0-3.0 CARDIOLOGY Standard range: 2.0-3.0 High-intensity range: 2.5-3.5 Refer to indication-specific guidelines for appropriate target ranges for prosthetic heart valve replacement. Current interpretive data was last revised on 2019. Blood 04/01/2025 10:5 1 PM SANITARIAN AIDE 04/01/2025 11:02 PM SANITARIAN AIDE Bola Harris MD LAB BLOOD ORDERABLES F inal Result Performing Organization Address City/[facility]/ZIP Co de Phone Number [facility] Department [place] [address] * Type and screen (04/01/2025 10:51 PM SANITARIAN AIDE) Pathologist [facility] ABO Rh O Positive Todd, indirect Negative [facility] Blood 04/01/2025 10:5 1 PM SANITARIAN AIDE 04/01/2025 11:22 PM SANITARIAN AIDE Narrative [facility] - 04/02/2025 12:12 AM SANITARIAN AIDE Has the patient had Daratumumab or Isatuximab in the past 6 months?->Unknown Bola Harris MD LAB BLOOD BANK TEST OR DERABLES Final Result Performing Organization Address City/[facility] Co de Phone Number [facility] Department [place] [address] * (ABNORMAL) Comprehensive metabolic panel (04/01/2025 10:51 PM SANITARIAN AIDE) Pathologist [facility] Sodium 144 135 - 145 mmol/L Potassium, pl 4.3 3.3 - 4.9 mmol/L [facility] Chloride 101 97 - 110 mmol/L [facility] CO2 34(H) 22 - 32 mmol/L [facility] Anion gap 9 2 - 15 mmol/L [facility] BUN 19 6 - 25 mg/dL [facility] Creatinine 1.21 0.80 - 1.30 mg/dL [facility] Glucose 145 70 - 199 mg/dL [facility] Comment: Interpretive Data Fasting glucose >/= [...] 2022. Calcium 9.0 8.5 - 10.3 mg/dL [facility] Bilirubin, total 1.0 0.1 - 1.2 mg/dL [facility] Protein, pl 6.6 6.5 - 8.5 g/dL [facility] Albumin 4.1 3.5 - 5.0 g/dL [facility] Alk phos 86 40 - 130 Units/L [facility] ALT 17 7 - 55 Units/L [facility] AST 22 10 - 50 Units/L [facility] Blood 04/01/2025 10:5 1 PM SANITARIAN AIDE 04/01/2025 11:10 PM SANITARIAN AIDE us Bola Harris MD LAB BLOOD ORDERABLES F inal Result [facility] Department [place] [address] from Last 3 Months Insurance MEDICARE [employer] MEDICARE [facility] [employer] Advance Directives For more information, please contact: [phone] * LIMITED - No CPR (Latest Code [...] 5:10 AM 04/02/2025 6:02 AM Care Teams Dispatcher Radio Relationship Specialty Start Date End Date Jayjay Fernandes MD [address] [place] [address] PCP - General Family Medicine 04/01/25
--- OUTSIDE RECORDS SUMMARY | 2025-04-25 08:43 | XMS_ITS | Clinical Summary ---
Author Organization [facility] Address [address] [place] [address] Care Team Providers Care Computer Systems Administrator Name Role Phone Jamie Grande MD Unavailable [phone] Jayjay Fernandes MD Primary Care Provider [phone] Samia Bautista PA-C Unavailable [phone] Luis Alberto Spears MD Unavailable [phone] Allergies Active Allergy Reactions Criticality Noted Date [...] situ Overview (03/14/2016): [employer] Ellipse VR [id number] implanted on 08/23/15 Hyperlipidemia LV dysfunction CAD (coronary artery disease) Aortic valve disorder Overview (03/14/2016): calcified without stenosis VT (ventricular tachycardia) Overview (03/14/2016): by report CVA (cerebral vascular accident) Overview (03/14/2016): h/o Resolved Problems Problem Noted Date Diagnosed Date Resolved Date History of GI bleed 04/08/2018 04/08/20 18 Ischemic cardiomyopathy 07/03 Encounters Date Type Department Care Team Description 02/24/2025 Telephone [facility] [address] [place] [address] Ledy Swenson ANP- Problem (Pt ) 02/02/2025 1:00 AM CDT Allied Health/Nurse Visit [facility] [address] [place] [address] Jamie Grande MD Rajagopalan, Bharath, MD from [...] Sex Assigned at Male 06/25/2024 7:37 PM HR RECEPTIONIST Legal Sex Male 11:27 PM CDT Gender Identity Not on file Sexual Orientation Not on file Last Filed Vital Signs Vital Sign Reading Time Taken Comments Blood Pressure 99/51 10/27/2024 12:14 PM CDT Pulse 64 10/27/2024 12:14 PM CDT Temperature 36.7 C (98 F) 06/26/2024 12:40 AM HR RECEPTIONIST Respiratory Rate 24 06/26/2024 12:40 AM HR RECEPTIONIST Oxygen Saturation 95% 10/27/2024 12:14 PM CDT 3L O2 Inhaled Oxygen Concentration - - Weight 67.6 kg (149 lb) 10/27/2024 12:14 PM CDT Height 180.3 cm (5' 11) 10/27/2024 12:14 PM CDT Body Mass Index 20.78 10/27/2024 12:14 PM CDT Plan of Treatment Upcoming Encounters Date Type Department Care Team (Late st Contact Info) Description 05/13/2025 1:45 AM HR RECEPTIONIST Allied Health/Nurse Visit [facility] [address] [place] [address] Jamie Grande MD [address] [place] [address] 10/26/2025 10:45 AM CDT Office Visit [facility] [place] [address] [place] [address] Luis Alberto Spears MD [address] [place] [address] 10/26/2025 10:45 AM CDT Allied Health/Nurse Visit [facility] [place] [address] Luis Alberto Spears MD [address] [place] [address] Health Maintenance Due Date Last Done Comments [...] this topic Medical Devices Implanted Type Area Medical Or Surgical Instrument Maker Device Identifier Shelf Expiration Date Model / Serial / Lot Sjm Sc Icd Implanted:08/04 by Jamie Grande MD (Quantity not on file) ICD [facility] - DIV [employer] ELLIPSE VR [id number] / [id number] / Procedures Procedure Name Priority Date/Time Associated [...] Conversion [facility] Final R esult [facility] TO EPIC CONVERSION from Last 3 Months or Most Recently Relevant to Health Maintenance Insurance [employer] MEDICARE MEDICARE Advance Directives * DNR (Latest Code Status on File) Date Activated Date Inactivated Comments 02/17/2018 8:33 PM 02/26/2018 8:04 PM * Full Code Date Activated Date Inactivated Comments 02/17/2018 7:51 PM 02/17/2018 8:33 PM Care Teams Computer Systems Administrator Relationship Specialty Start Date End Date Jayjay Fernandes MD [address] [place] [address] PCP - General FAMILY PRACTICE 04/03/17 Jamie Grande MD [address] [place] [phone] CARDIOVASCULAR DISEASE 03/13/16 Samia Bautista PA-C [address] [place] [address] Referring Physician PHYSICIAN PRODUCTION UTILITY WORKER 09/15/24 Luis Alberto Spears MD [address] [place] [address] Consulting Physician CLINICAL CARDIAC ELECTROPHYSIOLOGY 09/15/24
--- OUTSIDE RECORDS SUMMARY | 2025-04-25 08:43 | XMS_ITS | Clinical Summary ---
Author Organization [facility] Address [address] [facility] [place] [address] Phone Care Team Providers Care Test Preparation Tutor Name Role Phone Unavailable Primary Care Provider [...] mouth daily. 30 Tablet 07/07/2024 12:27 PM PARTS SALES REPRESENTATIVE Active Active Problems Problem Noted Date Diagnosed Date Acute blood loss anemia 06/26/2024 Acute lower GI bleeding 06/26/2024 COPD (chronic obstructive pulmonary disease) Coronary artery disease invo lving [place] coronary artery of [place] heart without angina pectoris 06/26/2024 Primary hypertension [...] Smoking Tobacco: Former Cigarettes 1 67 1 2018 Alcohol Use Standard Drinks/Week Comments Not Currently [...] on file Legal Sex Male 11:07 PM PARTS SALES REPRESENTATIVE Gender Identity Not on file Sexual Orientation Not on file Last Filed Vital Signs Vital Sign Reading Time Taken Comments Blood Pressure 113/45 07/07/2024 6:10 AM PARTS SALES REPRESENTATIVE Pulse 72 07/07/2024 8:23 AM PARTS SALES REPRESENTATIVE Temperature 37.1 C (98.7 F) 07/07/2024 4:57 AM PARTS SALES REPRESENTATIVE Respiratory Rate 18 07/07/2024 8:23 AM PARTS SALES REPRESENTATIVE Oxygen Saturation 98% 07/07/2024 8:23 AM PARTS SALES REPRESENTATIVE Inhaled Oxygen Concentration - - Weight 69.1 kg (152 lb 4.8 oz) 06/26/2024 2:09 A M PARTS SALES REPRESENTATIVE Height 180.3 cm (5' 11) 06/26/2024 2:09 AM PARTS SALES REPRESENTATIVE Body Mass Index 21.24 06/26/2024 2:09 AM PARTS SALES REPRESENTATIVE Plan of Treatment Health Maintenance Due Date [...] exists Insurance MEDICARE PART A AND B [facility] Address: [facility] [address] [place] [address] RX [employer] [place] [employer] (INTERNAL) [facility] Advance Directives For more information, please contact: [phone] * NO CPR (In Event of Cardiopulmonary Arrest) (Latest Code Status on File) Date Activated Date Inactivated Comments 06/26/2024 2:37 AM 07/07/2024 2:53 PM Question Answer Comments Mechanical Ventilation (for respiratory distress) - Invasive (i.e. intubation): No Mechanical Ventilation (for respiratory distress) - Non-Invasive (i.e. BiPAP, CPAP): Yes
--- OUTSIDE RECORDS SUMMARY | 2025-04-25 08:43 | XMS_ITS | Encounter Summary ---
Author Organization [facility] Address [address] [place] [address] Care Team Providers Care Sewing Pattern Layout Technician Name Role Phone Jamie Grande MD Unavailable [phone] Jayjay Fernandes MD Primary Care Provider [phone] Avinash Monroe MD Unavailable [phone] Samia Bautista PA-C Unavailable [phone] Luis Alberto Spears MD Unavailable [phone] Encounter Details Date Type Department Care Team (Late st Contact Info) Description 08/09/2015 Abstract [facility] AT [address] [place] [phone] Jamie Grande MD [address] [place] [address] Social History Tobacco Use Types Packs/Day Years Used Date Smoking Tobacco: Every Day Cigarettes 0.5 63 Comments:Current smoker, 1/2 PPD for 63 years Alcohol Use Standard Drinks/Week Comments Yes 0 (1 standard drink = 0.6 oz pur e alcohol) Wine 3-4 daily, vodka, gin. Sex and Gender Information Value Date Recorded Sex Assigned at Male 06/25/2024 7:37 PM FLAT FINISHER Legal Sex Male 11:27 PM CDT Gender Identity Not on file Sexual Orientation Not on file documented as of this encounter Plan of Treatment Upcoming Encounters Date Type Department Care Team (Late st Contact Info) Description 05/13/2025 1:45 AM FLAT FINISHER Allied Health/Nurse Visit [facility] [address] [place] [address] Jamie Grande MD [address] [place] [phone] 10/26/2025 10:45 AM CDT Office Visit [facility] [address] [place] [phone] Luis Alberto Spears MD [address] [place], [place] [address] 10/26/2025 10:45 AM CDT Allied Health/Nurse Visit [facility] [address] [place] [address] Luis Alberto Spears MD [address] [place] [address] documented as of this encounter Visit Diagnoses Not on filedocumented in this encounter Care Teams Sewing Pattern Layout Technician Relationship Specialty Start Date End Date Jayjay Fernandes MD [address] [place] [phone] PCP - General FAMILY PRACTICE 04/03/17 Jamie Grande MD [address] [place] [phone] CARDIOVASCULAR DISEASE 03/13/16 Avinash Monroe MD [address] [place] [address] [place] Clinical Law Professor CARDIOVASCULAR DISEASE 04/07/19 09/14/24 Samia Bautista PA-C [address] [place] [address] Referring Physician PHYSICIAN OPAL POLISHER 09/15/24 Luis Alberto Spears MD [address] [place] [address] Consulting Physician CLINICAL CARDIAC ELECTROPHYSIOLOGY 09/15/24 documented as of this encounter
--- OUTSIDE RECORDS SUMMARY | 2025-04-25 08:43 | XMS_ITS | Clinical Summary ---
Author Organization [facility] Address [address] [place] [address] Phone Care Team Providers Care Receiving Supervisor Name Role Phone Percy Michaels MD Primary Care Provider [phone] Social History Tobacco Use Types Packs/Day Years [...] complete this topic Insurance MEDICARE Care Teams Receiving Supervisor Relationship Specialty Start Date End Date Percy Michaels MD [address] [place] [id number] PCP - General Endocrinology 11/24/19
[2025-04-25 08:45] LABS: INR 1.0; Partial Thromboplastin Time 24.0 Sec (23.9-30.70); Prothrombin Time 10.7 Seconds (9.50-12.1)
[2025-04-25 08:53] LABS: Alanine Aminotransferase 26 U/L (6-50); Albumin Level 4.4 g/dL (3.5-5.1); Alkaline Phosphatase 118 U/L (38-126); Anion Gap 6 mmol/L (4-12); Aspartate Amino Transferase 34 U/L (17-59); Bilirubin,Total 0.9 mg/dL (0.2-1.3); Blood Urea Nitrogen 19 mg/dL (9-20); Calcium 9.4 mg/dL (8.4-10.2); Carbon Dioxide 40 mmol/L (22-30); Chloride 96 mmol/L (98-107); Estimated CRCL calculation 37 ml/min; Estimated Glomerular Filt Rate > 60; Glucose 118 mg/dL (65-110); Lipase 64 U/L (23-300); Osmolality Calculated 297 mOsm/kg (285-295); Potassium 3.1 mmol/L (3.4-5.0); Sodium 142 mmol/L (137-145); Total Protein 7.6 g/dL (6.3-8.2)
[2025-04-25] MEDS: SODIUM CHLORIDE 0.9% IV 1,000 ML 999 ML IV CONT (08:55)
[2025-04-25 09:00] LABS: NT Pro B Type Natriuretic Pept 1600 pg/mL (19.9-100)
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
--- NOTE | 2025-04-28 15:12 | PC.NURSE ---
PRELIMINARY BLOOD CULTURE REPORT; NO GROWTH IN 24 HOURS.
--- NOTE | 2025-04-29 14:11 | PC.NURSE ---
Preliminary blood culture report; no growth in 48 hours.
--- NOTE | 2025-05-02 13:41 | PC.NURSE ---
blood final no growth
== END 2025-04-25 10:40 ==
PROVIDERS: Emergency Provider Emergency Medicine; PCP Internal Medicine
DX: K21.9 Gastro-esophageal reflux disease without esophagitis (principal); N40.0 Benign prostatic hyperplasia without lower urinary tract symptoms; J44.9 Chronic obstructive pulmonary disease, unspecified; I25.2 Old myocardial infarction; Z86.73 Personal history of transient ischemic attack (TIA), and cerebral infarction without residual deficits; Z79.899 Other long term (current) drug therapy; Z87.891 Personal history of nicotine dependence
CPT/HCPCS: 36415; 71045; 74177; 80053; 81001; 83605; 83690; 83880; 85025; 85610; 85730; 87040; 94640; 96360; 99284; J7030; Q9967

== ENCOUNTER 2025-04-28 14:24 | Observation (INO) | payer MEDICARE, OTHER, SELFPAY ==
[2025-04-28] VITALS (18 sets, daily range): BP systolic 115–148; BP diastolic 51–67; PULSE 62–95; RESP 17–25; TEMP 36.3; O2SAT 97–100; BMI 18.8
--- NOTE | ~2025-04-28 | XR_ITS ---
EXAMINATION: XR chest 1V portable 04/28/2025 14:45 INDICATION: Dyspnea. History of COPD. PROCEDURE: 2 view chest COMPARISON: 04/25/2025 FINDINGS: Heart size normal. No focal air space disease, pulmonary edema, pleural effusion or suspected pneumothorax. Defibrillator leads stable.The lungs are hyperinflated which is consistent with, but not diagnostic of chronic obstructive pulmonary disease. IMPRESSION: 1: NO ACUTE CARDIOPULMONARY DISEASE. Reviewed, dictated and finalized at location O. [employer]
--- NOTE | 2025-04-28 14:26 | ECG_ITS ---
Test Date: 2025-04-28 14:47:20 Measurements Intervals [place] Rate: 68 P: 85 LA: 180 QRS: 53 QRSD: 89 T: 111 QT: 338 QTc: 361 Interpretive Statements SINUS RHYTHM ANTEROSEPTAL INFARCT, AGE INDETERMINATE ST-T WAVE ABNORMALITY IN ANTEROLATERAL LEADS- CONSIDER ISCHEMIA BASELINE ARTIFACT- I, III, AVL, V3-V6 ABNORMAL ECG Compared to ECG 03/29/2025 12:05:06 PVC'S NO LONGER PRESENT POSSIBLE ISCHEMIA NOW PRESENT Electronically Signed On 04-28-2025 16:42:31 HYDRAULIC BLOCKER by De Alcocer D.O.
--- OUTSIDE RECORDS SUMMARY | 2025-04-28 14:26 | XMS_ITS | Encounter Summary ---
Author Organization [facility] Address [address] [place] [address] Care Team Providers Care Jailor Name Role Phone Jamie Grande MD Unavailable [phone] Jayjay Fernandes MD Primary Care Provider [phone] Avinash Monroe MD Unavailable [phone] Samia Bautista PA-C Unavailable [phone] Luis Alberto Spears MD Unavailable [phone] Encounter Details Date Type Department Care Team (Late st Contact Info) Description 08/09/2015 Abstract [facility] [address] [place] [phone] Jamie Grande MD [address] [place] [address] Social History Tobacco Use Types Packs/Day Years Used Date Smoking Tobacco: Every Day Cigarettes 0.5 63 Comments:Current smoker, 1/2 PPD for 63 years Alcohol Use Standard Drinks/Week Comments Yes 0 (1 standard drink = 0.6 oz pur e alcohol) Wine 3-4 daily, vodka, gin. Sex and Gender Information Value Date Recorded Sex Assigned at Male 06/25/2024 7:37 PM CREW LEAD Legal Sex Male 11:27 PM CDT Gender Identity Not on file Sexual Orientation Not on file documented as of this encounter Plan of Treatment Upcoming Encounters Date Type Department Care Team (Late st Contact Info) Description 05/13/2025 1:45 AM CREW LEAD Allied Health/Nurse Visit [facility] [address] [place] [address] Jamie Grande MD [address] [place] [phone] 10/26/2025 10:45 AM CDT Office Visit [facility] [address] [place] [phone] Luis Alberto Spears MD [address] [place], [place] [phone] 10/26/2025 10:45 AM CDT Allied Health/Nurse Visit [facility] [address] [place] [address] Luis Alberto Spears MD [address] [place] [address] documented as of this encounter Visit Diagnoses Not on filedocumented in this encounter Care Teams Jailor Relationship Specialty Start Date End Date Jayjay Fernandes MD [address] [place] [phone] PCP - General FAMILY PRACTICE 04/03/17 Jamie Grande MD [address] [place] [phone] CARDIOVASCULAR DISEASE 03/13/16 Avinash Monroe MD [address] [place] [address] [place] Packaging Coordinator CARDIOVASCULAR DISEASE 04/07/19 09/14/24 Samia Bautista PA-C [address] [place] [phone] Referring Physician PHYSICIAN HARDWOOD FINISHER 09/15/24 Luis Alberto Spears MD [address] [place] [address] Consulting Physician CLINICAL CARDIAC ELECTROPHYSIOLOGY 09/15/24 documented as of this encounter
--- OUTSIDE RECORDS SUMMARY | 2025-04-28 14:26 | XMS_ITS | Clinical Summary ---
Author Organization [facility] Address [address] [place] [address] Care Team Providers Care Poultry Picker Name Role Phone Jamie Grande MD Unavailable Jayjay Fernandes MD Primary Care Provider [phone] Samia Bautista PA-C Unavailable [phone] Luis Alberto Spears MD Unavailable [phone] Allergies Active Allergy Reactions Criticality Noted Date [...] situ Overview (03/14/2016): [employer] Ellipse VR [id number] implanted on 08/23/15 Hyperlipidemia LV dysfunction CAD (coronary artery disease) Aortic valve disorder Overview (03/14/2016): calcified without stenosis VT (ventricular tachycardia) Overview (03/14/2016): by report CVA (cerebral vascular accident) Overview (03/14/2016): h/o Resolved Problems Problem Noted Date Diagnosed Date Resolved Date History of GI bleed 04/08/2018 04/08/20 18 Ischemic cardiomyopathy 07/03 Encounters Date Type Department Care Team Description 02/24/[address] [facility] [address] [place] [address] Ledy Swenson ANP- Problem (Pt ) 02/02/2025 1:00 AM CDT Allied Health/Nurse Visit [facility] [address] [place] [address] Jamie Grande MD Rajagopalan, Bharath, MD from [...] Sex Assigned at Male 06/25/2024 7:37 PM ENERGY ADMINISTRATOR Legal Sex Male 11:27 PM CDT Gender Identity Not on file Sexual Orientation Not on file Last Filed Vital Signs Vital Sign Reading Time Taken Comments Blood Pressure 99/51 10/27/2024 12:14 PM CDT Pulse 64 10/27/2024 12:14 PM CDT Temperature 36.7 C (98 F) 06/26/2024 12:40 AM ENERGY ADMINISTRATOR Respiratory Rate 24 06/26/2024 12:40 AM ENERGY ADMINISTRATOR Oxygen Saturation 95% 10/27/2024 12:14 PM CDT 3L O2 Inhaled Oxygen Concentration - - Weight 67.6 kg (149 lb) 10/27/2024 12:14 PM CDT Height 180.3 cm (5' 11) 10/27/2024 12:14 PM CDT Body Mass Index 20.78 10/27/2024 12:14 PM CDT Plan of Treatment Upcoming Encounters Date Type Department Care Team (Late st Contact Info) Description 05/13/2025 1:45 AM ENERGY ADMINISTRATOR Allied Health/Nurse Visit [facility] [address] [place] [address] Jamie Grande MD [address] [place] [address] 10/26/2025 10:45 AM CDT Office Visit [facility] [place] [address] [place] [address] Luis Alberto Spears MD [address] [place] [address] 10/26/2025 10:45 AM CDT Allied Health/Nurse Visit [facility] [place] [address] Luis Alberto Spears MD [address] [place] [address] Health Maintenance Due Date Last Done Comments [...] this topic Medical Devices Implanted Type Area Bleach Boiler Filler Device Identifier Shelf Expiration Date Model / Serial / Lot Sjm Sc Icd Implanted:08/04 by Jamie Grande MD (Quantity not on file) ICD [employer] [facility] - DIV [employer] ELLIPSE VR [id number] / [id number] / Procedures Procedure Name Priority Date/Time Associated [...] Conversion Md [facility] Final R esult [facility] TO EPIC CONVERSION from Last 3 Months or Most Recently Relevant to Health Maintenance Insurance [employer] MEDICARE MEDICARE Advance Directives * DNR (Latest Code Status on File) Date Activated Date Inactivated Comments 02/17/2018 8:33 PM 02/26/2018 8:04 PM * Full Code Date Activated Date Inactivated Comments 02/17/2018 7:51 PM 02/17/2018 8:33 PM Care Teams Poultry Picker Relationship Specialty Start Date End Date Jayjay Fernandes MD [address] [place] [address] PCP - General FAMILY PRACTICE 04/03/17 Jamie Grande MD [address] [place] [phone] CARDIOVASCULAR DISEASE 03/13/16 Samia Bautista PA-C [address] [place] [address] Referring Physician PHYSICIAN DIGITAL CIRCUIT DESIGNER 09/15/24 Luis Alberto Spears MD [address] [place] [address] Consulting Physician CLINICAL CARDIAC ELECTROPHYSIOLOGY 09/15/24
--- OUTSIDE RECORDS SUMMARY | 2025-04-28 14:26 | XMS_ITS | Clinical Summary ---
Author Organization [facility] Address [address] [place] [address] Phone Care Team Providers Care Cosmetic Account Coordinator Name Role Phone Percy Michaels MD Primary Care Provider [phone] Social History Tobacco Use Types Packs/Day Years [...] complete this topic Insurance MEDICARE Care Teams Cosmetic Account Coordinator Relationship Specialty Start Date End Date Percy Michaels MD [address] [place] [phone] PCP - General Endocrinology 11/24/19
--- OUTSIDE RECORDS SUMMARY | 2025-04-28 14:26 | XMS_ITS | Clinical Summary ---
Author Organization [facility] Address [address] [place] [address] Phone Care Team Providers [employer] Salesperson Name Role Phone Unavailable Primary Care Provider [...] mouth daily. 30 Tablet 07/07/2024 12:27 PM MEDIA TECHNICIAN Active Active Problems Problem Noted Date Diagnosed Date Acute blood loss anemia 06/26/2024 Acute lower GI bleeding 06/26/2024 COPD (chronic obstructive pulmonary disease) Coronary artery disease invo lving [place] coronary artery of [place] heart without angina pectoris 06/26/2024 Primary hypertension [...] on file Legal Sex Male 11:07 PM MEDIA TECHNICIAN Gender Identity Not on file Sexual Orientation Not on file Last Filed Vital Signs Vital Sign Reading Time Taken Comments Blood Pressure 113/45 07/07/2024 6:10 AM MEDIA TECHNICIAN Pulse 72 07/07/2024 8:23 AM MEDIA TECHNICIAN Temperature 37.1 C (98.7 F) 07/07/2024 4:57 AM MEDIA TECHNICIAN Respiratory Rate 18 07/07/2024 8:23 AM MEDIA TECHNICIAN Oxygen Saturation 98% 07/07/2024 8:23 AM MEDIA TECHNICIAN Inhaled Oxygen Concentration - - Weight 69.1 kg (152 lb 4.8 oz) 06/26/2024 2:09 A M MEDIA TECHNICIAN Height 180.3 cm (5' 11) 06/26/2024 2:09 AM MEDIA TECHNICIAN Body Mass Index 21.24 06/26/2024 2:09 AM MEDIA TECHNICIAN Plan of Treatment Health Maintenance Due Date [...] exists Insurance MEDICARE PART A AND B [employer] (INTERNAL) [facility] Plans Advance Directives For more information, please contact: [phone] * NO CPR (In Event of Cardiopulmonary Arrest) (Latest Code Status on File) Date Activated Date Inactivated Comments 06/26/2024 2:37 AM 07/07/2024 2:53 PM Question Answer Comments Mechanical Ventilation (for respiratory distress) - Invasive (i.e. intubation): No Mechanical Ventilation (for respiratory distress) - Non-Invasive (i.e. BiPAP, CPAP): Yes
--- OUTSIDE RECORDS SUMMARY | 2025-04-28 14:27 | XMS_ITS | Clinical Summary ---
Author Organization [facility] Address [address] [place] [address] Care Team Providers Care Body Finisher Name Role Phone Jayjay Fernandes MD Primary Care Provider [phone]- [phone] Allergies No known active allergies Medications ALPRAZolam [...] 04/05/2025 Assessment & Plan (04/06/2025 10:50 AM FIELD TRAFFIC INVESTIGATOR): - Cont home finasteride and flomax. - New urinary retention on 04/05, with discomfort. Bladder scan 600+. Persistent retention after straight cath - Malone placed last night - Will likely need repeat void trial at rehab Assessment & Plan (04/05/2025 3:48 PM FIELD TRAFFIC INVESTIGATOR): - Cont home finasteride and flomax. - New urinary retention on 04/05, with discomfort. Bladder scan 600+ - Bladder scan/ Straight cath q4 PRN Lower GI bleed 04/03/2025 Assessment & Plan (04/06/2025 10:50 AM FIELD TRAFFIC INVESTIGATOR): Patient presented with recurrent painless hematochezia. Has had this issue since almost 2019. Last eval was with sigmoidoscopy in Jun this year but prep was sub optimal however no active bleeding was seen. Was also recently admitted at OSH (no scopes or transfusions over there) and discharged few days before presenting to [facility]. Last colonoscopy was 2018. He is [...] CTA Assessment & Plan (04/05/2025 3:48 PM FIELD TRAFFIC INVESTIGATOR): Patient presented with recurrent painless hematochezia. Has had this issue since almost 2018. Last eval was with sigmoidoscopy in Jun this year but prep was sub optimal however no active bleeding was seen. Was also recently admitted at OSH (no scopes or transfusions over there) and discharged few days before presenting to [facility]. Last colonoscopy was 2018. He is [...] CTA Assessment & Plan (2025 12:16 PM FIELD TRAFFIC INVESTIGATOR): Patient presented with recurrent painless hematochezia. Has had this issue since almost 2018. Last eval was with sigmoidoscopy in jun this year but prep was sub optimal however no active bleeding was seen. Was also recently admitted at OSH (no scopes or transfusions over there) and discharged few days before presenting to [facility]. Last colonoscopy was 2017. He is [...] CTA Assessment & Plan (04/03/2025 12:17 PM FIELD TRAFFIC INVESTIGATOR): Patient presented with recurrent painless hematochezia. Has had this issue since almost 2018. Last eval was with sigmoidoscopy in jun this year but prep was sub optimal however no active bleeding was seen. Was also recently admitted at OSH (no scopes or transfusions over there) and discharged few days before presenting to [facility]. Last colonoscopy was 2017. He is [...] 04/03/2025 Assessment & Plan (04/06/2025 10:50 AM FIELD TRAFFIC INVESTIGATOR): Patient presented with recurrent painless hematochezia. Has had this issue since almost 2018. Last eval was with sigmoidoscopy in Jun this year but prep was sub optimal however no active bleeding was seen. Was also recently admitted at OSH (no scopes or transfusions over there) and discharged few days before presenting to [facility]. Last colonoscopy was 2017. He is [...] CTA Assessment & Plan (04/05/2025 3:48 PM FIELD TRAFFIC INVESTIGATOR): Patient presented with recurrent painless hematochezia. Has had this issue since almost 2018. Last eval was with sigmoidoscopy in Jun this year but prep was sub optimal however no active bleeding was seen. Was also recently admitted at OSH (no scopes or transfusions over there) and discharged few days before presenting to [facility]. Last colonoscopy was 2017. He is [...] CTA Assessment & Plan (2025 12:16 PM FIELD TRAFFIC INVESTIGATOR): Patient presented with recurrent painless hematochezia. Has had this issue since almost 2018. Last eval was with sigmoidoscopy in jun this year but prep was sub optimal however no active bleeding was seen. Was also recently admitted at OSH (no scopes or transfusions over there) and discharged few days before presenting to [facility]. Last colonoscopy was 2017. He is [...] CTA Assessment & Plan (04/03/2025 12:17 PM FIELD TRAFFIC INVESTIGATOR): Patient presented with recurrent painless hematochezia. Has had this issue since almost 2018. Last eval was with sigmoidoscopy in jun this year but prep was sub optimal however no active bleeding was seen. Was also recently admitted at OSH (no scopes or transfusions over there) and discharged few days before presenting to [facility]. Last colonoscopy was 2017. He is [...] 04/03/2025 Assessment & Plan (04/06/2025 10:50 AM FIELD TRAFFIC INVESTIGATOR): - S/p CABG and ICD. Cont home asa and statin. Assessment & Plan (04/05/2025 3:48 PM FIELD TRAFFIC INVESTIGATOR): - S/p CABG and ICD. Cont home asa and statin. Assessment & Plan (2025 12:16 PM FIELD TRAFFIC INVESTIGATOR): S/p CABG and ICD. Cont home asa and statin Assessment & Plan (04/03/2025 12:17 PM FIELD TRAFFIC INVESTIGATOR): S/p CABG and ICD. Cont home asa and statin History of COPD 04/03/2025 Assessment & Plan (04/06/2025 10:50 AM FIELD TRAFFIC INVESTIGATOR): On 3 L O2 at baseline. No [...] discharge. Assessment & Plan (04/05/2025 3:48 PM FIELD TRAFFIC INVESTIGATOR): On 3 L O2 at baseline. No [...] discharge. Assessment & Plan (2025 12:16 PM FIELD TRAFFIC INVESTIGATOR): On 3 L o2 at baseline. No [...] discharge. Assessment & Plan (04/03/2025 12:17 PM FIELD TRAFFIC INVESTIGATOR): On 3 L o2 at baseline. No [...] 04/03/2025 Assessment & Plan (04/06/2025 10:50 AM FIELD TRAFFIC INVESTIGATOR): - Cont home finasteride and flomax. - New urinary retention on 04/05, with discomfort. Bladder scan 600+. Persistent retention after straight cath - Malone placed last night - Will likely need repeat void trial at rehab Assessment & Plan (04/05/2025 3:48 PM FIELD TRAFFIC INVESTIGATOR): - Cont home finasteride and flomax. - New urinary retention on 04/05, with discomfort. Bladder scan 600+ - Bladder scan/ Straight cath q4 PRN Assessment & Plan (2025 12:16 PM FIELD TRAFFIC INVESTIGATOR): Cont home finasteride and flomax Assessment & Plan (04/03/2025 12:17 PM FIELD TRAFFIC INVESTIGATOR): Cont home finasteride and flomax Chronic dyspnea, improved 04/03/2025 Assessment & Plan (04/06/2025 10:50 AM FIELD TRAFFIC INVESTIGATOR): On 3 L O2 at baseline. No [...] discharge. Assessment & Plan (04/05/2025 3:48 PM FIELD TRAFFIC INVESTIGATOR): On 3 L O2 at baseline. No [...] discharge. Assessment & Plan (2025 12:16 PM FIELD TRAFFIC INVESTIGATOR): On 3 L o2 at baseline. No [...] discharge. Assessment & Plan (04/03/2025 12:17 PM FIELD TRAFFIC INVESTIGATOR): On 3 L o2 at baseline. No [...] 04/02/2025 Assessment & Plan (04/06/2025 10:50 AM FIELD TRAFFIC INVESTIGATOR): Patient presented with recurrent painless hematochezia. Has had this issue since almost 2018. Last eval was with sigmoidoscopy in Jun this year but prep was sub optimal however no active bleeding was seen. Was also recently admitted at OSH (no scopes or transfusions over there) and discharged few days before presenting to [facility]. Last colonoscopy was 2017. He is [...] CTA Assessment & Plan (04/05/2025 3:48 PM FIELD TRAFFIC INVESTIGATOR): Patient presented with recurrent painless hematochezia. Has had this issue since almost 2018. Last eval was with sigmoidoscopy in Jun this year but prep was sub optimal however no active bleeding was seen. Was also recently admitted at OSH (no scopes or transfusions over there) and discharged few days before presenting to [facility]. Last colonoscopy was 2017. He is [...] CTA Assessment & Plan (2025 12:16 PM FIELD TRAFFIC INVESTIGATOR): Patient presented with recurrent painless hematochezia. Has had this issue since almost 2018. Last eval was with sigmoidoscopy in jun this year but prep was sub optimal however no active bleeding was seen. Was also recently admitted at OSH (no scopes or transfusions over there) and discharged few days before presenting to [facility]. Last colonoscopy was 2017. He is [...] CTA Assessment & Plan (04/03/2025 12:17 PM FIELD TRAFFIC INVESTIGATOR): Patient presented with recurrent painless hematochezia. Has had this issue since almost 2018. Last eval was with sigmoidoscopy in jun this year but prep was sub optimal however no active bleeding was seen. Was also recently admitted at OSH (no scopes or transfusions over there) and discharged few days before presenting to [facility]. Last colonoscopy was 2017. He is [...] CTA Assessment & Plan (04/02/2025 6:17 AM FIELD TRAFFIC INVESTIGATOR): Melena + BRBPR. - recurrent GIB since 2018. Hospitalized this year 07/2024 (flex sig done but no active bleeding) and 4 days prior at [facility] (records not available but no transfusions or [...] 04/02/2025 Assessment & Plan (04/06/2025 10:50 AM FIELD TRAFFIC INVESTIGATOR): OSH TTE 07/2024 w/ EF 35-40%. Home [...] trend Assessment & Plan (04/05/2025 3:48 PM FIELD TRAFFIC INVESTIGATOR): OSH TTE 07/2024 w/ EF 35-40%. Home [...] trend Assessment & Plan (2025 12:16 PM FIELD TRAFFIC INVESTIGATOR): OSH TTE 07/2024 w/ EF 35-40%. Home [...] trend Assessment & Plan (04/03/2025 12:17 PM FIELD TRAFFIC INVESTIGATOR): OSH TTE 07/2024 w/ EF 35-40%. Home meds include coreg and lasix 40 bid. Appears euvolumic without signs of exacerbation. CXR on 04/02 without edema. 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 Assessment & Plan (04/05/2025 3:48 PM FIELD TRAFFIC INVESTIGATOR): - Resuming home xanax and zoloft. Assessment & Plan (2025 12:16 PM FIELD TRAFFIC INVESTIGATOR): Resuming home xanax and zoloft Assessment & Plan (04/03/2025 12:17 PM FIELD TRAFFIC INVESTIGATOR): Resuming home xanax and zoloft Assessment & Plan (04/02/2025 6:17 AM FIELD TRAFFIC INVESTIGATOR): Xanax prn nightly Chronic respiratory failure with hypoxia 025 Assessment & Plan (04/06/2025 10:50 AM FIELD TRAFFIC INVESTIGATOR): On 3 L O2 at baseline. No [...] discharge. Assessment & Plan (04/05/2025 3:48 PM FIELD TRAFFIC INVESTIGATOR): On 3 L O2 at baseline. No [...] discharge. Assessment & Plan (2025 12:16 PM FIELD TRAFFIC INVESTIGATOR): On 3 L o2 at baseline. No [...] discharge. Assessment & Plan (04/03/2025 12:17 PM FIELD TRAFFIC INVESTIGATOR): On 3 L o2 at baseline. No [...] dyspnea Assessment & Plan (04/02/2025 6:17 AM FIELD TRAFFIC INVESTIGATOR): From COPD, on 3L O2 - only on albuterol at home Plan: - duonebs prn Goals of care, counseling/discussion 04/02/2025 Assessment & Plan (04/06/2025 10:50 AM FIELD TRAFFIC INVESTIGATOR): No family members so POA is friendWeiell . - Code status was confirmed to be DNR/DNI on 04/02 by admitting physician Assessment & Plan (04/05/2025 3:48 PM FIELD TRAFFIC INVESTIGATOR): No family members so POA is friendWeiell . - Code status was confirmed to be DNR/DNI on 04/02 by admitting physician Assessment & Plan (2025 12:16 PM FIELD TRAFFIC INVESTIGATOR): No family members so POA = Friend Wei Tejada [phone]. Code status was confirmed to be DNRDNI on 04/02 by admitting physician Assessment & Plan (04/03/2025 12:17 PM FIELD TRAFFIC INVESTIGATOR): No family members so POA = Friend Wei Tejada [phone] - confirmed DNRDNI on 04/02 Assessment & Plan (04/02/2025 6:17 AM FIELD TRAFFIC INVESTIGATOR): No family members so POA = Friend Wei Tejada [phone] - confirmed DNRDNI on 04/02 History of CAD (coronary artery disease) 025 Assessment & Plan (04/06/2025 10:50 AM FIELD TRAFFIC INVESTIGATOR): - S/p CABG and ICD. Cont home asa and statin. Assessment & Plan (04/05/2025 3:48 PM FIELD TRAFFIC INVESTIGATOR): - S/p CABG and ICD. Cont home asa and statin. Assessment & Plan (2025 12:16 PM FIELD TRAFFIC INVESTIGATOR): S/p CABG and ICD. Cont home asa and statin Assessment & Plan (04/03/2025 12:17 PM FIELD TRAFFIC INVESTIGATOR): S/p CABG and ICD. Cont home asa and statin Assessment & Plan (04/02/2025 6:17 AM FIELD TRAFFIC INVESTIGATOR): S/p CABG - statin - hold ASA Primary hypertension 02/25/2020 Assessment & Plan (04/02/2025 6:17 AM FIELD TRAFFIC INVESTIGATOR): Hold antihypertensives d/t GIB Resolved Problems Problem Noted Date Diagnosed Date Resolved Date FELICITY (acute kidney injury) 04/02/2025 Assessment & Plan (04/03/2025 12:17 PM FIELD TRAFFIC INVESTIGATOR): Cr at baseline Assessment & Plan (04/02/2025 6:17 AM FIELD TRAFFIC INVESTIGATOR): Cr 1.2 (Cr 0.9 in 07/2024) - likely pre-renal. No signs of heart failure to suggest cardiorenal Plan: - may need a bit of fluids Encounters Date Type Department Care Team Description 04/01/2025 10:17 PM FIELD TRAFFIC INVESTIGATOR - 04/06/2025 10:33 PM FIELD TRAFFIC INVESTIGATOR Hospital Encounter [facility] [address] [place] [address] Aristeo Plunkett Jr., MD [place], [place], [...] on file Legal Sex Male 9:52 PM FIELD TRAFFIC INVESTIGATOR Gender Identity Not on file Sexual Orientation Not on file Last Filed Vital Signs Vital Sign Reading Time Taken Comments Blood Pressure 148/61 04/06/2025 7:46 PM FIELD TRAFFIC INVESTIGATOR Pulse 102 04/06/2025 9:05 PM FIELD TRAFFIC INVESTIGATOR Temperature 36.8 C (98.2 F) 04/06/2025 7:46 PM FIELD TRAFFIC INVESTIGATOR Respiratory Rate 18 04/06/2025 9:05 PM FIELD TRAFFIC INVESTIGATOR Oxygen Saturation 95% 04/06/2025 9:05 PM FIELD TRAFFIC INVESTIGATOR Inhaled Oxygen Concentration - - Weight 63.5 kg (140 lb 1.6 oz) 04/03/2025 1:35 P M FIELD TRAFFIC INVESTIGATOR Height - - Body Mass Index - [...] URINALYSIS, MICROSCOPIC ONLY Routine 04/06/2025 9:17 AM FIELD TRAFFIC INVESTIGATOR URINE CULTURE Routine 04/06/2025 9:17 AM FIELD TRAFFIC INVESTIGATOR URINALYSIS AND REFLEX TO MICROSCOPIC AND CULTURE Routine 04/06/2025 9:17 AM FIELD TRAFFIC INVESTIGATOR CBC WITHOUT DIFFERENTIAL Timed 04/06/2025 8:59 AM FIELD TRAFFIC INVESTIGATOR MAGNESIUM Routine 04/05/2025 11:51 PM FIELD TRAFFIC INVESTIGATOR EGFR Routine 04/05/2025 11:51 PM FIELD TRAFFIC INVESTIGATOR BASIC METABOLIC PANEL Routine 04/05/2025 11:51 PM FIELD TRAFFIC INVESTIGATOR CBC WITHOUT DIFFERENTIAL Timed 04/05/2025 11:51 PM FIELD TRAFFIC INVESTIGATOR POCT GLUCOSE DEVICE Routine 04/05/2025 8 :36 AM FIELD TRAFFIC INVESTIGATOR CBC WITHOUT DIFFERENTIAL Timed 04/05/2025 6:59 AM FIELD TRAFFIC INVESTIGATOR EGFR Routine 2025 9:00 PM FIELD TRAFFIC INVESTIGATOR TYPE AND SCREEN Timed 2025 9:00 PM FIELD TRAFFIC INVESTIGATOR BASIC METABOLIC PANEL Routine 2025 9:00 PM FIELD TRAFFIC INVESTIGATOR CBC WITHOUT DIFFERENTIAL Timed 2025 9:00 PM FIELD TRAFFIC INVESTIGATOR CBC WITHOUT DIFFERENTIAL Timed 2025 9:49 AM FIELD TRAFFIC INVESTIGATOR IRON PROFILE W/ IBC Routine 04/03/2025 8 :22 PM FIELD TRAFFIC INVESTIGATOR FERRITIN Routine 04/03/2025 8:22 PM FIELD TRAFFIC INVESTIGATOR EGFR Routine 04/03/2025 8:22 PM FIELD TRAFFIC INVESTIGATOR BASIC METABOLIC PANEL Routine 04/03/2025 8:22 PM FIELD TRAFFIC INVESTIGATOR CBC WITHOUT DIFFERENTIAL Timed 04/03/2025 8:22 PM FIELD TRAFFIC INVESTIGATOR CBC WITHOUT DIFFERENTIAL Routine 04/03/2025 4:01 AM FIELD TRAFFIC INVESTIGATOR EGFR Routine 04/02/2025 7:30 PM FIELD TRAFFIC INVESTIGATOR CBC WITHOUT DIFFERENTIAL Timed 04/02/2025 7:30 PM FIELD TRAFFIC INVESTIGATOR BASIC METABOLIC PANEL Routine 04/02/2025 7:30 PM FIELD TRAFFIC INVESTIGATOR CBC WITHOUT DIFFERENTIAL Timed 04/02/2025 7:30 PM FIELD TRAFFIC INVESTIGATOR EGFR Timed 04/02/2025 1:23 PM FIELD TRAFFIC INVESTIGATOR CBC WITHOUT DIFFERENTIAL Timed 04/02/2025 1:23 PM FIELD TRAFFIC INVESTIGATOR BASIC METABOLIC PANEL Timed 04/02/2025 1:23 PM FIELD TRAFFIC INVESTIGATOR XR CHEST 1 VIEW ED Urgent/IP Urgent 04/02/2025 10:17 AM FIELD TRAFFIC INVESTIGATOR CBC WITHOUT DIFFERENTIAL STAT 04/02/2025 6:14 AM FIELD TRAFFIC INVESTIGATOR ECG 12-LEAD Routine 04/02/2025 3:30 AM FIELD TRAFFIC INVESTIGATOR CBC WITHOUT DIFFERENTIAL Timed 04/02/2025 3:10 AM FIELD TRAFFIC INVESTIGATOR TROPONIN I HIGH-SENSITIVITY 2-HOUR Timed 04/02/2025 3:10 AM FIELD TRAFFIC INVESTIGATOR BLOOD GAS, VENOUS STAT 04/02/2025 1:3 4 AM FIELD TRAFFIC INVESTIGATOR TROPONIN I HIGH-SENSITIVITY SERIES (BASELINE, 2HR, 4HR, 6HR) STAT 04/02/2025 1:11 AM FIELD TRAFFIC INVESTIGATOR PRO B-TYPE NATRIURETIC PEPTIDE STAT 04/02/2025 1:10 AM FIELD TRAFFIC INVESTIGATOR B CHECK SAMPLE STAT 04/02/2025 12:57 AM FIELD TRAFFIC INVESTIGATOR CT ABDOMEN PELVIS W WO CONTRAST ED Urgent/IP Urgent 04/02/2025 12:37 AM FIELD TRAFFIC INVESTIGATOR POCT CREATININE - DEVICE Routine 04/01/2025 11:42 PM FIELD TRAFFIC INVESTIGATOR HEPARIN ANTI FACTOR XA ACTIVITY STAT 04/01/2025 10:51 PM FIELD TRAFFIC INVESTIGATOR EGFR STAT 04/01/2025 10:51 PM FIELD TRAFFIC INVESTIGATOR DIFFERENTIAL AUTO STAT 04/01/2025 10: 51 PM FIELD TRAFFIC INVESTIGATOR TYPE AND SCREEN STAT 04/01/2025 10:51 PM FIELD TRAFFIC INVESTIGATOR APTT STAT 04/01/2025 10:51 PM FIELD TRAFFIC INVESTIGATOR PROTIME-INR STAT 04/01/2025 10:51 PM FIELD TRAFFIC INVESTIGATOR COMPREHENSIVE METABOLIC PANEL STAT 04/01/2025 10:51 PM FIELD TRAFFIC INVESTIGATOR CBC WITH AUTO DIFFERENTIAL STAT 04/01/2025 10:51 PM FIELD TRAFFIC INVESTIGATOR from Last 3 Months Results * (ABNORMAL) Urinalysis reflex to microscopic and culture Urine (04/06/2025 9:17 AM FIELD TRAFFIC INVESTIGATOR) Color, ur Cristina Yellow Clarity, ur Cloudy(A) Clear [facility] Specific gravity, ur 1.019 1.003 - 1.030 [facility] pH, urine 5.5 [facility] Comment: Interpretive Data U rine pH is affected by diet, medications, systemic acid-base disturbances, and renal tubular function. pH may affect urinary stone formation. For example, urine pH below 6.0 may help reduce the tendency for calcium phosphate stones and pH greater than 6.0 may reduce the tendency for uric acid stone formation. Source: [facility] Current Interpretive Data was last revised on 2017 Protein, ur ql 1+(A) Negative [facility] Glucose, ur ql Negative Negative [facility] Ketones, ur Negative Negative [facility] Bilirubin, ur Negative Negative [facility] Blood, ur 3+(A) Negative [facility] Urobilinogen, ur <2.0 <2.0 mg/dL [facility] Nitrite, ur Negative Negative [facility] Leukocyte esterase, ur 3+(A) Negative [facility] UA reflex comment Reflex to microscopic UA will be performed. [facility] Urine 04/06/2025 9:17 AM FIELD TRAFFIC INVESTIGATOR 04/06/2025 9:48 AM FIELD TRAFFIC INVESTIGATOR Kathryn JALLOH LAB MICROBIOLOGY - NERAL ORDERABLES Final Result [facility] Department [place] [address] * (ABNORMAL) Urinalysis, microscopic only (04/06/2025 9:17 AM FIELD TRAFFIC INVESTIGATOR) WBC, ur >50(A) 0 - 5 /HPF RBC, ur >50(A) 0 - 2 /HPF [facility] Epithelial cells, squamous, ur 1-5 0 - 5 /HPF [facility] Bacteria, ur 1+(A) [facility] Mucous, ur Present(A) [facility] Hyaline casts, ur 6-10 0 - 10 /LPF [facility] Culture Reflex Comment Reflex to urine culture will be performed. [facility] Urine 04/06/2025 9:17 AM FIELD TRAFFIC INVESTIGATOR 04/06/2025 9:48 AM FIELD TRAFFIC INVESTIGATOR Kathryn JALLOH LAB URINE ORDERABLES Final Result [facility] [place] [address] * Urine culture Urine (04/06/2025 9:17 AM FIELD TRAFFIC INVESTIGATOR) Report Final Report: No growth Urine 04/06/2025 9:17 AM FIELD TRAFFIC INVESTIGATOR 04/06/2025 10:06 AM FIELD TRAFFIC INVESTIGATOR Narrative [facility] - 04/07/2025 10:58 AM FIELD TRAFFIC INVESTIGATOR Urine culture reflexed based upon urinalysis results. Testing performed by [facility] Microbiology Laboratory ([phone]) Kathryn JALLOH LAB MICROBIOLOGY - GE NERAL ORDERABLES Final Result Performing Organization Address City/[facility] Co de Phone Number [facility] Department [place] [address] * (ABNORMAL) CBC without differential (04/06/2025 8:59 AM FIELD TRAFFIC INVESTIGATOR) WBC 15.79(H) 3.80 - 9.90 K/cumm Hgb 8.0(L) 13.0 - 17.5 g/dL [facility] Hct 24.6(L) 38.9 - 50.3 % [facility] Plt 293 150 - 400 K/cumm [facility] MPV 9.9 9.1 - 12.3 fL [facility] RBC 2.50(L) 4.30 - 5.80 M/cumm [facility] MCV 98.4(H) 81.3 - 96.4 fL [facility] MCH 32.0 27.1 - 33.3 pg [facility] MCHC 32.5 32.3 - 35.7 g/dL [facility] RDW CV 14.4 11.1 - 14.9 % [facility] RDW SD 49.0(H) 35.7 - 48.1 fL [facility] NRBC abs 0.00 0.00 - 0.01 K/cumm [facility] Blood 04/06/2025 8:59 AM FIELD TRAFFIC INVESTIGATOR 04/06/2025 9:43 AM FIELD TRAFFIC INVESTIGATOR Jennifer Burris MD LAB BLOOD ORDERABLES Final Re sult Performing Organization Address [facility] Co de Phone Number [facility] [place] [address] * eGFR (04/05/2025 11:51 PM FIELD TRAFFIC INVESTIGATOR) eGFR 68 >=60 mL/min/1. 73 m2 Comment: [...] reviewed 2021. Blood 04/05/2025 11:5 1 PM FIELD TRAFFIC INVESTIGATOR 04/06/2025 12:43 AM FIELD TRAFFIC INVESTIGATOR us Jennifer Burris MD LAB BLOOD ORDERABLES Final Re sult Performing Organization Address [facility] Co de Phone Number [facility] Department [place] [address] * (ABNORMAL) CBC without differential (04/05/2025 11:51 PM FIELD TRAFFIC INVESTIGATOR) WBC 9.47 3.80 - 9.90 K/cumm Hgb 7.1(L) 13.0 - 17.5 g/dL [facility] Hct 22.7(L) 38.9 - 50.3 % [facility] Plt 241 150 - 400 K/cumm [facility] MPV 10.0 9.1 - 12.3 fL [facility] RBC 2.25(L) 4.30 - 5.80 M/cumm [facility] MCV 100.9(H) 81.3 - 96.4 fL [facility] MCH 31.6 27.1 - 33.3 pg [facility] MCHC 31.3(L) 32.3 - 35.7 g/dL [facility] RDW CV 14.2 11.1 - 14.9 % [facility] RDW SD 51.0(H) 35.7 - 48.1 fL [facility] NRBC abs 0.00 0.00 - 0.01 K/cumm [facility] Blood 04/05/2025 11:5 1 PM FIELD TRAFFIC INVESTIGATOR 04/06/2025 12:44 AM FIELD TRAFFIC INVESTIGATOR us Jennifer Burris MD LAB BLOOD ORDERABLES Final Re sult [facility] Department [place] [address] * Magnesium (04/05/2025 11:51 PM FIELD TRAFFIC INVESTIGATOR) Magnesium 2.0 1.4 - 2.5 mg/dL Blood 04/05/2025 11:5 1 PM FIELD TRAFFIC INVESTIGATOR 04/06/2025 12:43 AM FIELD TRAFFIC INVESTIGATOR us Suyapa Syed MD LAB BLOOD ORDERABLES Final Resul t [facility] Department [place] [address] * (ABNORMAL) Basic metabolic panel (04/05/2025 11:51 PM FIELD TRAFFIC INVESTIGATOR) Sodium 143 135 - 145 mmol/L Potassium, pl 3.2(L) 3.3 - 4.9 mmol/L [facility] Chloride 98 97 - 110 mmol/L [facility] CO2 38(H) 22 - 32 mmol/L [facility] Anion gap 7 2 - 15 mmol/L [facility] BUN 17 6 - 25 mg/dL [facility] Creatinine 1.08 0.80 - 1.30 mg/dL [facility] Glucose 105 70 - 199 mg/dL [facility] Comment: Interpretive Data Fasting glucose >/= [...] 2022. Calcium 8.1(L) 8.5 - 10.3 mg/dL [facility] Blood 04/05/2025 11:5 1 PM FIELD TRAFFIC INVESTIGATOR 04/06/2025 12:43 AM FIELD TRAFFIC INVESTIGATOR us Jennifer Burris MD LAB BLOOD ORDERABLES Final Re sult Performing Organization Address [facility]/ZIP Co de Phone Number [facility] Department [place] [address] * POCT glucose (04/05/2025 8:36 AM FIELD TRAFFIC INVESTIGATOR) [facility] Glucose, POC 114 70 - 199 mg/dL Blood 04/05/2025 8:36 AM FIELD TRAFFIC INVESTIGATOR 04/05/2025 8:36 AM FIELD TRAFFIC INVESTIGATOR us Suyapa ySed MD LAB POCT ORDERABLES - DEVICE Fin al Result Performing Organization Address [facility]/ZIP Co de Phone Number [facility] Department [place] [address] * (ABNORMAL) CBC without differential (04/05/2025 6:59 AM FIELD TRAFFIC INVESTIGATOR) [facility] WBC 14.23(H) 3.80 - 9.90 K/cumm Hgb 7.8(L) 13.0 - 17.5 g/dL [facility] Hct 24.6(L) 38.9 - 50.3 % [facility] Plt 275 150 - 400 K/cumm [facility] MPV 9.7 9.1 - 12.3 fL [facility] RBC 2.50(L) 4.30 - 5.80 M/cumm [facility] MCV 98.4(H) 81.3 - 96.4 fL [facility] MCH 31.2 27.1 - 33.3 pg [facility] MCHC 31.7(L) 32.3 - 35.7 g/dL [facility] RDW CV 13.7 11.1 - 14.9 % [facility] RDW SD 48.4(H) 35.7 - 48.1 fL [facility] NRBC abs 0.00 0.00 - 0.01 K/cumm [facility] Blood 04/05/2025 6:59 AM FIELD TRAFFIC INVESTIGATOR 04/05/2025 7:25 AM FIELD TRAFFIC INVESTIGATOR us Jennifer Burris MD LAB BLOOD ORDERABLES Final Re sult [facility] Department [place] [address] * eGFR (2025 9:00 PM FIELD TRAFFIC INVESTIGATOR) [facility] eGFR 61 >=60 mL/min/1. 73 m2 [...] last reviewed 2021. Blood 2025 9:00 PM FIELD TRAFFIC INVESTIGATOR 2025 9:34 PM FIELD TRAFFIC INVESTIGATOR us Jennifer Burris MD LAB BLOOD ORDERABLES Final Re sult [facility] Department [place] [address] * (ABNORMAL) CBC without differential (2025 9:00 PM FIELD TRAFFIC INVESTIGATOR) WBC 11.25(H) 3.80 - 9.90 K/cumm Hgb 7.5(L) 13.0 - 17.5 g/dL [facility] Hct 24.2(L) 38.9 - 50.3 % [facility] Plt 249 150 - 400 K/cumm [facility] MPV 9.9 9.1 - 12.3 fL [facility] RBC 2.41(L) 4.30 - 5.80 M/cumm [facility] MCV 100.4(H) 81.3 - 96.4 fL [facility] MCH 31.1 27.1 - 33.3 pg [facility] MCHC 31.0(L) 32.3 - 35.7 g/dL [facility] RDW CV 13.6 11.1 - 14.9 % [facility] RDW SD 49.1(H) 35.7 - 48.1 fL [facility] NRBC abs 0.00 0.00 - 0.01 K/cumm [facility] Blood 2025 9:00 PM FIELD TRAFFIC INVESTIGATOR 2025 9:33 PM FIELD TRAFFIC INVESTIGATOR Jennifer Burris MD LAB BLOOD ORDERABLES Final Re sult Performing Organization Address City/[facility]/ZIP Co de Phone Number [facility] [place] [address] * Type and screen (2025 9:00 PM FIELD TRAFFIC INVESTIGATOR) ABO Rh O Positive Todd, indirect Negative [facility] Blood 2025 9:00 PM FIELD TRAFFIC INVESTIGATOR 2025 9:50 PM FIELD TRAFFIC INVESTIGATOR Narrative [facility] - 2025 11:01 PM FIELD TRAFFIC INVESTIGATOR Has the patient had Daratumumab or Isatuximab in the past 6 months?->Unknown Lida Borja MD PhD LAB BLOOD BANK TEST ORDERAB LES Final Result Performing Organization Address [facility] Co de Phone Number [facility] [place] [address] * (ABNORMAL) Basic metabolic panel (2025 9:00 PM FIELD TRAFFIC INVESTIGATOR) Pathologist [facility] Sodium 141 135 - 145 mmol/L Potassium, pl 3.7 3.3 - 4.9 mmol/L [facility] Chloride 99 97 - 110 mmol/L [facility] CO2 37(H) 22 - 32 mmol/L [facility] Anion gap 5 2 - 15 mmol/L [facility] BUN 20 6 - 25 mg/dL [facility] Creatinine 1.18 0.80 - 1.30 mg/dL [facility] Glucose 91 70 - 199 mg/dL [facility] Comment: Interpretive Data Fasting glucose >/= [...] 2022. Calcium 8.8 8.5 - 10.3 mg/dL [facility] Blood 2025 9:00 PM FIELD TRAFFIC INVESTIGATOR 2025 9:34 PM FIELD TRAFFIC INVESTIGATOR Jennifer Burris MD LAB BLOOD ORDERABLES Final Re sult Performing Organization Address City/[facility]/ZIP Co de Phone Number [facility] [place] [address] * (ABNORMAL) CBC without differential (2025 9:49 AM FIELD TRAFFIC INVESTIGATOR) WBC 11.45(H) 3.80 - 9.90 K/cumm Hgb 7.9(L) 13.0 - 17.5 g/dL [facility] Hct 24.7(L) 38.9 - 50.3 % [facility] Plt 233 150 - 400 K/cumm [facility] MPV 9.8 9.1 - 12.3 fL [facility] RBC 2.52(L) 4.30 - 5.80 M/cumm [facility] MCV 98.0(H) 81.3 - 96.4 fL [facility] MCH 31.3 27.1 - 33.3 pg [facility] MCHC 32.0(L) 32.3 - 35.7 g/dL [facility] RDW CV 13.7 11.1 - 14.9 % [facility] RDW SD 48.1 35.7 - 48.1 fL [facility] NRBC abs 0.00 0.00 - 0.01 K/cumm [facility] Blood 2025 9:49 AM FIELD TRAFFIC INVESTIGATOR 2025 10:50 AM FIELD TRAFFIC INVESTIGATOR Jennifer Burris MD LAB BLOOD ORDERABLES Final Re sult Performing Organization Address City/[facility]/ZIP Co de Phone Number [facility] Department [place] [address] * eGFR (04/03/2025 8:22 PM FIELD TRAFFIC INVESTIGATOR) eGFR 72 >=60 mL/min/1. 73 m2 Comment: [...] last reviewed 2021. Blood 04/03/2025 8:22 PM FIELD TRAFFIC INVESTIGATOR 04/03/2025 8:46 PM FIELD TRAFFIC INVESTIGATOR Jennifer Burris MD LAB BLOOD ORDERABLES Final Re sult Performing Organization Address City/[facility]/ZIP Co de Phone Number [facility] Department [place] [address] * (ABNORMAL) Iron profile w/ IBC (04/03/2025 8:22 PM FIELD TRAFFIC INVESTIGATOR) Pathologist [facility] Iron 40(L) 50 - 150 mcg/dL TIBC 219(L) 250 - 400 mcg/dL [facility] Transferrin saturation 18(L) 20 - 50 % [facility] Blood 04/03/2025 8:22 PM FIELD TRAFFIC INVESTIGATOR 04/03/2025 8:46 PM FIELD TRAFFIC INVESTIGATOR Jennifer Burris MD LAB BLOOD ORDERABLES Final Re sult [facility] Department [place] [address] * (ABNORMAL) CBC without differential (04/03/2025 8:22 PM FIELD TRAFFIC INVESTIGATOR) Pathologist [facility] WBC 12.92(H) 3.80 - 9.90 K/cumm Hgb 8.1(L) 13.0 - 17.5 g/dL [facility] Hct 24.8(L) 38.9 - 50.3 % [facility] Plt 248 150 - 400 K/cumm [facility] MPV 9.9 9.1 - 12.3 fL [facility] RBC 2.55(L) 4.30 - 5.80 M/cumm [facility] MCV 97.3(H) 81.3 - 96.4 fL [facility] MCH 31.8 27.1 - 33.3 pg [facility] MCHC 32.7 32.3 - 35.7 g/dL [facility] RDW CV 13.5 11.1 - 14.9 % [facility] RDW SD 47.3 35.7 - 48.1 fL [facility] NRBC abs 0.00 0.00 - 0.01 K/cumm [facility] Blood 04/03/2025 8:22 PM FIELD TRAFFIC INVESTIGATOR 04/03/2025 8:47 PM FIELD TRAFFIC INVESTIGATOR us Jennifer Burris MD LAB BLOOD ORDERABLES Final Re sult [facility] Department [place] [address] * Ferritin (04/03/2025 8:22 PM FIELD TRAFFIC INVESTIGATOR) Pathologist [facility] Ferritin 48 30 - 400 ng/mL Blood 04/03/2025 8:22 PM FIELD TRAFFIC INVESTIGATOR 04/03/2025 8:46 PM FIELD TRAFFIC INVESTIGATOR us Jennifer Burris MD LAB BLOOD ORDERABLES Final Re sult [facility] Department [place] [address] * (ABNORMAL) Basic metabolic panel (04/03/2025 8:22 PM FIELD TRAFFIC INVESTIGATOR) Pathologist [facility] Sodium 140 135 - 145 mmol/L Potassium, pl 3.9 3.3 - 4.9 mmol/L [facility] Chloride 99 97 - 110 mmol/L [facility] CO2 35(H) 22 - 32 mmol/L [facility] Anion gap 6 2 - 15 mmol/L [facility] BUN 18 6 - 25 mg/dL [facility] Creatinine 1.03 0.80 - 1.30 mg/dL [facility] Glucose 134 70 - 199 mg/dL [facility] Comment: Interpretive Data Fasting glucose >/= [...] 2022. Calcium 8.5 8.5 - 10.3 mg/dL [facility] Blood 04/03/2025 8:22 PM FIELD TRAFFIC INVESTIGATOR 04/03/2025 8:46 PM FIELD TRAFFIC INVESTIGATOR Jennifer Burris MD LAB BLOOD ORDERABLES Final Re sult [facility] Department [place] [address] * (ABNORMAL) CBC without differential (04/03/2025 4:01 AM FIELD TRAFFIC INVESTIGATOR) Pathologist [facility] WBC 10.04(H) 3.80 - 9.90 K/cumm Hgb 7.8(L) 13.0 - 17.5 g/dL [facility] Hct 23.3(L) 38.9 - 50.3 % [facility] Plt 217 150 - 400 K/cumm [facility] MPV 9.9 9.1 - 12.3 fL [facility] RBC 2.45(L) 4.30 - 5.80 M/cumm [facility] MCV 95.1 81.3 - 96.4 fL [facility] MCH 31.8 27.1 - 33.3 pg [facility] MCHC 33.5 32.3 - 35.7 g/dL [facility] RDW CV 13.4 11.1 - 14.9 % [facility] RDW SD 46.3 35.7 - 48.1 fL [facility] NRBC abs 0.00 0.00 - 0.01 K/cumm [facility] Blood 04/03/2025 4:01 AM FIELD TRAFFIC INVESTIGATOR 04/03/2025 4:29 AM FIELD TRAFFIC INVESTIGATOR Rubin Ricardo MD LAB BLOOD ORDERABLES F inal Result [facility] Department [place] [address] * eGFR (04/02/2025 7:30 PM FIELD TRAFFIC INVESTIGATOR) eGFR 69 >=60 mL/min/1. 73 m2 Comment: [...] last reviewed 2021. Blood 04/02/2025 7:30 PM FIELD TRAFFIC INVESTIGATOR 04/02/2025 8:30 PM FIELD TRAFFIC INVESTIGATOR us Jennifer Burris MD LAB BLOOD ORDERABLES Final Re sult [facility] Department [place] [address] * (ABNORMAL) CBC without differential (04/02/2025 7:30 PM FIELD TRAFFIC INVESTIGATOR) WBC 10.71(H) 3.80 - 9.90 K/cumm Hgb 8.2(L) 13.0 - 17.5 g/dL [facility] Hct 25.3(L) 38.9 - 50.3 % [facility] Plt 250 150 - 400 K/cumm [facility] MPV 9.9 9.1 - 12.3 fL [facility] RBC 2.61(L) 4.30 - 5.80 M/cumm [facility] MCV 96.9(H) 81.3 - 96.4 fL [facility] MCH 31.4 27.1 - 33.3 pg [facility] MCHC 32.4 32.3 - 35.7 g/dL [facility] RDW CV 13.4 11.1 - 14.9 % [facility] RDW SD 47.4 35.7 - 48.1 fL [facility] NRBC abs 0.00 0.00 - 0.01 K/cumm [facility] Blood 04/02/2025 7:30 PM FIELD TRAFFIC INVESTIGATOR 04/02/2025 8:31 PM FIELD TRAFFIC INVESTIGATOR us Jennifer Burris MD LAB BLOOD ORDERABLES Final Re sult [facility] [place], [place] [id number] * (ABNORMAL) CBC without differential (04/02/2025 7:30 PM FIELD TRAFFIC INVESTIGATOR) WBC 10.91(H) 3.80 - 9.90 K/cumm Hgb 8.2(L) 13.0 - 17.5 g/dL [facility] Hct 25.7(L) 38.9 - 50.3 % [facility] Plt 251 150 - 400 K/cumm [facility] MPV 10.1 9.1 - 12.3 fL [facility] RBC 2.64(L) 4.30 - 5.80 M/cumm [facility] MCV 97.3(H) 81.3 - 96.4 fL [facility] MCH 31.1 27.1 - 33.3 pg [facility] MCHC 31.9(L) 32.3 - 35.7 g/dL [facility] RDW CV 13.4 11.1 - 14.9 % [facility] RDW SD 47.3 35.7 - 48.1 fL [facility] NRBC abs 0.00 0.00 - 0.01 K/cumm [facility] Blood 04/02/2025 7:30 PM FIELD TRAFFIC INVESTIGATOR 04/02/2025 8:32 PM FIELD TRAFFIC INVESTIGATOR us Jennifer Burris MD LAB BLOOD ORDERABLES Final Re sult [facility] Department [place] [address] * (ABNORMAL) Basic metabolic panel (04/02/2025 7:30 PM FIELD TRAFFIC INVESTIGATOR) Pathologist [facility] Sodium 143 135 - 145 mmol/L Potassium, pl 3.5 3.3 - 4.9 mmol/L [facility] Chloride 100 97 - 110 mmol/L [facility] CO2 36(H) 22 - 32 mmol/L [facility] Anion gap 7 2 - 15 mmol/L [facility] BUN 18 6 - 25 mg/dL [facility] Creatinine 1.07 0.80 - 1.30 mg/dL [facility] Glucose 165 70 - 199 mg/dL [facility] Comment: Interpretive Data Fasting glucose >/= [...] 2022. Calcium 8.9 8.5 - 10.3 mg/dL [facility] Blood 04/02/2025 7:30 PM FIELD TRAFFIC INVESTIGATOR 04/02/2025 8:30 PM FIELD TRAFFIC INVESTIGATOR us Jennifer Burris MD LAB BLOOD ORDERABLES Final Re sult [facility] Department [place] [address] * eGFR (04/02/2025 1:23 PM FIELD TRAFFIC INVESTIGATOR) eGFR 73 >=60 mL/min/1. 73 m2 Comment: [...] last reviewed 2021. Blood 04/02/2025 1:23 PM FIELD TRAFFIC INVESTIGATOR 04/02/2025 1:46 PM FIELD TRAFFIC INVESTIGATOR us Lida Borja MD PhD LAB BLOOD ORDERABLES Final Result Performing Organization Address [facility] de Phone Number [facility] Department [place] [address] * (ABNORMAL) CBC without differential (04/02/2025 1:23 PM FIELD TRAFFIC INVESTIGATOR) [facility] WBC 10.85(H) 3.80 - 9.90 K/cumm Hgb 8.4(L) 13.0 - 17.5 g/dL [facility] Hct 25.4(L) 38.9 - 50.3 % [facility] Plt 174 150 - 400 K/cumm [facility] MPV 10.1 9.1 - 12.3 fL [facility] RBC 2.66(L) 4.30 - 5.80 M/cumm [facility] MCV 95.5 81.3 - 96.4 fL [facility] MCH 31.6 27.1 - 33.3 pg [facility] MCHC 33.1 32.3 - 35.7 g/dL [facility] RDW CV 13.4 11.1 - 14.9 % [facility] RDW SD 47.0 35.7 - 48.1 fL [facility] NRBC abs 0.00 0.00 - 0.01 K/cumm [facility] Blood 04/02/2025 1:23 PM FIELD TRAFFIC INVESTIGATOR 04/02/2025 1:46 PM FIELD TRAFFIC INVESTIGATOR us Jennifer Burris MD LAB BLOOD ORDERABLES Final Re sult Performing Organization Address [facility] Co de Phone Number [facility] Department [place] [address] * (ABNORMAL) Basic metabolic panel (04/02/2025 1:23 PM FIELD TRAFFIC INVESTIGATOR) [facility] Sodium 143 135 - 145 mmol/L Potassium, pl 4.0 3.3 - 4.9 mmol/L [facility] Chloride 99 97 - 110 mmol/L [facility] CO2 35(H) 22 - 32 mmol/L [facility] Anion gap 9 2 - 15 mmol/L [facility] BUN 21 6 - 25 mg/dL [facility] Creatinine 1.02 0.80 - 1.30 mg/dL [facility] Glucose 138 70 - 199 mg/dL [facility] Comment: Interpretive Data Fasting glucose >/= [...] 2022. Calcium 8.9 8.5 - 10.3 mg/dL [facility] Blood 04/02/2025 1:23 PM FIELD TRAFFIC INVESTIGATOR 04/02/2025 1:46 PM FIELD TRAFFIC INVESTIGATOR us Lida Borja MD PhD LAB BLOOD ORDERABLES Final Result [facility] [place] [address] * XR Chest 1 View (04/02/2025 10:17 AM FIELD TRAFFIC INVESTIGATOR) Anatomical Region Laterality Modality Body, Chest N/A Digital Radiogra phy 04/02/2025 1:03 PM FIELD TRAFFIC INVESTIGATOR Impressions 04/02/2025 1:03 PM FIELD TRAFFIC INVESTIGATOR No prior images available for comparison. Left [...] Armando Martinez M.D. Narrative 04/02/2025 1:03 PM FIELD TRAFFIC INVESTIGATOR EXAMINATION: 1 view chest radiograph Procedure Note [...] (ABNORMAL) CBC without differential (04/02/2025 6:14 AM FIELD TRAFFIC INVESTIGATOR) WBC 11.27(H) 3.80 - 9.90 K/cumm Hgb 8.4(L) 13.0 - 17.5 g/dL [facility] Hct 25.3(L) 38.9 - 50.3 % [facility] Plt 210 150 - 400 K/cumm [facility] MPV 10.1 9.1 - 12.3 fL [facility] RBC 2.64(L) 4.30 - 5.80 M/cumm [facility] MCV 95.8 81.3 - 96.4 fL [facility] MCH 31.8 27.1 - 33.3 pg [facility] MCHC 33.2 32.3 - 35.7 g/dL [facility] RDW CV 13.3 11.1 - 14.9 % [facility] RDW SD 46.2 35.7 - 48.1 fL [facility] NRBC abs 0.00 0.00 - 0.01 K/cumm [facility] Blood 04/02/2025 6:14 AM FIELD TRAFFIC INVESTIGATOR 04/02/2025 6:50 AM FIELD TRAFFIC INVESTIGATOR us Lida Borja MD PhD LAB BLOOD ORDERABLES Final Result [facility] Department [place] [address] * ECG 12-LEAD (04/02/2025 3:30 AM FIELD TRAFFIC INVESTIGATOR) Narrative [facility] [place] 04/02/2025 3:30 AM FIELD TRAFFIC INVESTIGATOR Aristeo Plunkett Jr., MD 04/02/2025 3:31 AM [...] further workup in the ED us Bola Harrsi MD ECG ORDERABLES Final Result Performing Organization Address City/[facility]/ZIP Co de Phone Number [facility] * Troponin I high-sensitivity 2-hour (04/02/2025 3:10 AM FIELD TRAFFIC INVESTIGATOR) Trop I hs 18 <=35 ng/L Comment: Interpretive Data For further hscTnI resources including the diagnostic algorithm and an aid in interpretation, copy and paste this link: https://bjhlab.testcatalog.org/show/[email or web address] Current Interpretive Data last revised 2019. Trop I hs delta 2 ng/L [facility] Trop I hs interp Insignificant CERNER BJ Blood 04/02/2025 3:10 AM FIELD TRAFFIC INVESTIGATOR 04/02/2025 3:42 AM FIELD TRAFFIC INVESTIGATOR Bola Harris MD LAB BLOOD ORDERABLES F inal Result Performing Organization Address City/[facility]/ZIP Co de Phone Number [facility] [place] [address] * (ABNORMAL) CBC without differential (04/02/2025 3:10 AM FIELD TRAFFIC INVESTIGATOR) Pathologist [facility] WBC 10.77(H) 3.80 - 9.90 K/cumm Hgb 7.7(L) 13.0 - 17.5 g/dL [facility] Hct 23.1(L) 38.9 - 50.3 % [facility] Plt 192 150 - 400 K/cumm [facility] MPV 10.1 9.1 - 12.3 fL [facility] RBC 2.42(L) 4.30 - 5.80 M/cumm [facility] MCV 95.5 81.3 - 96.4 fL [facility] MCH 31.8 27.1 - 33.3 pg [facility] MCHC 33.3 32.3 - 35.7 g/dL [facility] RDW CV 13.2 11.1 - 14.9 % [facility] RDW SD 45.5 35.7 - 48.1 fL [facility] NRBC abs 0.00 0.00 - 0.01 K/cumm [facility] Blood 04/02/2025 3:10 AM FIELD TRAFFIC INVESTIGATOR 04/02/2025 3:42 AM FIELD TRAFFIC INVESTIGATOR Bola Harris MD LAB BLOOD ORDERABLES F inal Result [facility] [place] [address] * (ABNORMAL) Blood gas, venous (04/02/2025 1:34 AM FIELD TRAFFIC INVESTIGATOR) Pathologist [facility] pH, Venous 7.33 7.32 - 7.43 PCO2, Venous 72(H) 40 - 50 mmHg [facility] PO2, Venous 36 mmHg [facility] Comment: Interpretive Data No Reference Range Established Current Interpretive Data was last revised on 2017. HCO3 Venous, Calculated 37(H) 20 - 30 mmol/L [facility] BE, venous 10 mmol/L [facility] Comment: Interpretive Data No Reference Range Established Current Interpretive Data was last revised on 2017. Blood 04/02/2025 1:34 AM FIELD TRAFFIC INVESTIGATOR 04/02/2025 1:35 AM FIELD TRAFFIC INVESTIGATOR us Aristeo Plunkett Jr., MD LAB BLOOD ORDERABLES F inal Result Performing Organization Address [facility] de Phone Number [facility] Department [place] [address] * Troponin I high-sensitivity series (baseline, 2hr, 4hr, 6hr) (04/02/2025 1:11 AM FIELD TRAFFIC INVESTIGATOR) Trop I hs 16 <=35 ng/L Comment: Interpretive Data For further hscTnI resources including the diagnostic algorithm and an aid in interpretation, copy and paste this link: https://bjhlab.testcatalog.org/show/[email or web address] Current Interpretive Data last revised 2019. Blood 04/02/2025 1:11 AM FIELD TRAFFIC INVESTIGATOR 04/02/2025 1:39 AM FIELD TRAFFIC INVESTIGATOR us Bola Harris MD LAB BLOOD ORDERABLES F inal Result Performing Organization Address [facility] de Phone Number [facility] Department [place] [address] * (ABNORMAL) Pro B-type natriuretic peptide (04/02/2025 1:10 AM FIELD TRAFFIC INVESTIGATOR) NT-proBNP 902(H) <=450 pg/mL Comment: Interpretive Comments: [...] Revised Date: 2017. Blood 04/02/2025 1:10 AM FIELD TRAFFIC INVESTIGATOR 04/02/2025 1:42 AM FIELD TRAFFIC INVESTIGATOR us Aristeo Plunkett Jr., MD LAB BLOOD ORDERABLES F inal Result Performing Organization Address City/[facility] Co de Phone Number [facility] [place] [address] * Check Sample (04/02/2025 12:57 AM FIELD TRAFFIC INVESTIGATOR) ABO Rh O Positive [facility] OTHER 04/02/2025 12:5 7 AM FIELD TRAFFIC INVESTIGATOR 04/02/2025 1:16 AM FIELD TRAFFIC INVESTIGATOR us Kevin Resendez MD LAB BLOOD ORDERABLES Final R esult Performing Organization Address [facility] Co de Phone Number [facility] [place] [address] [facility] * CT Abdomen Pelvis W WO Contrast (04/02/2025 12:37 AM FIELD TRAFFIC INVESTIGATOR) Anatomical Region Laterality Modality Body N/A Computed Tomogra phy 04/02/2025 2:08 AM FIELD TRAFFIC INVESTIGATOR Impressions 04/02/2025 8:33 AM FIELD TRAFFIC INVESTIGATOR 1. Focus of hyperattenuation along the wall [...] Joss Chaney M.D. Narrative 04/02/2025 8:33 AM FIELD TRAFFIC INVESTIGATOR EXAMINATION: Computed tomography of the abdomen and [...] Result * POCT creatinine (04/01/2025 11:42 PM FIELD TRAFFIC INVESTIGATOR) Creatinine POC 1.2 0.8 - 1.3 mg/dL Blood 04/01/2025 11:4 2 PM FIELD TRAFFIC INVESTIGATOR 04/01/2025 11:42 PM FIELD TRAFFIC INVESTIGATOR Notinfile Unknown LAB POCT ORDERABLES - DEVICE F inal Result Performing Organization Address [facility] Co de Phone Number [facility] [place] [address] * (ABNORMAL) eGFR (04/01/2025 10:51 PM FIELD TRAFFIC INVESTIGATOR) eGFR 59(L) >=60 mL/min/1. 73 m2 Comment: [...] reviewed 2021. Blood 04/01/2025 10:5 1 PM FIELD TRAFFIC INVESTIGATOR 04/01/2025 11:10 PM FIELD TRAFFIC INVESTIGATOR Bola Harris MD LAB BLOOD ORDERABLES F inal Result Performing Organization Address City/[facility]/ZIP Co de Phone Number [facility] [place] [address] * (ABNORMAL) Differential, auto (04/01/2025 10:51 PM FIELD TRAFFIC INVESTIGATOR) Neutrophil abs 10.99(H) 1.50 - 6.50 K/cumm Imm gran abs 0.17(H) 0.00 - 0.10 K/cumm [facility] Lymphocyte abs 1.91 0.80 - 3.30 K/cumm [facility] Monocyte abs 0.65 0.20 - 0.80 K/cumm [facility] Eosinophil abs 0.70(H) 0.00 - 0.50 K/cumm [facility] Basophil abs 0.05 0.00 - 0.10 K/cumm [facility] Neutrophil pct 76.0 % [facility] Comment: Interpretive Data Percent cell count reference ranges are not reported, since discordance with absolute values may lead to misinterpretation of CBC data. Current Interpretive Data was last revised on 2017. Imm gran pct 1.2 % [facility] Comment: Interpretive Data Percent cell count reference ranges are not reported, since discordance with absolute values may lead to misinterpretation of CBC data. Current Interpretive Data was last revised on 2017. Lymphocyte pct 13.2 % [facility] Comment: Interpretive Data Percent cell count reference ranges are not reported, since discordance with absolute values may lead to misinterpretation of CBC data. Current Interpretive Data was last revised on 2017. Monocyte pct 4.5 % [facility] Comment: Interpretive Data Percent cell count reference ranges are not reported, since discordance with absolute values may lead to misinterpretation of CBC data. Current Interpretive Data was last revised on 2017. Eosinophil pct 4.8 % [facility] Comment: Interpretive Data Percent cell count reference ranges are not reported, since discordance with absolute values may lead to misinterpretation of CBC data. Current Interpretive Data was last revised on 2017. Basophil pct 0.3 % [facility] Comment: Interpretive Data Percent cell count reference ranges are not reported, since discordance with absolute values may lead to misinterpretation of CBC data. Current Interpretive Data was last revised on 2017. Blood 04/01/2025 10:5 1 PM FIELD TRAFFIC INVESTIGATOR 04/01/2025 11:10 PM FIELD TRAFFIC INVESTIGATOR us Bola Harris MD LAB BLOOD ORDERABLES F inal Result [facility] Department [place] [address] * Heparin anti factor Xa activity (04/01/2025 10:51 PM FIELD TRAFFIC INVESTIGATOR) Pathologist [facility] Anti Factor Xa <0.10 IUnits/mL Comment: Interpretive [...] on 2018. Blood 04/01/2025 10:5 1 PM FIELD TRAFFIC INVESTIGATOR 04/01/2025 11:02 PM FIELD TRAFFIC INVESTIGATOR us Aristeo Plunkett Jr., MD LAB BLOOD ORDERABLES F inal Result [facility] Department [place] [address] * (ABNORMAL) CBC with auto differential (04/01/2025 10:51 PM FIELD TRAFFIC INVESTIGATOR) Pathologist [facility] WBC 14.47(H) 3.80 - 9.90 K/cumm Hgb 10.1(L) 13.0 - 17.5 g/dL [facility] Hct 30.9(L) 38.9 - 50.3 % [facility] Plt 282 150 - 400 K/cumm [facility] MPV 10.0 9.1 - 12.3 fL [facility] RBC 3.22(L) 4.30 - 5.80 M/cumm [facility] MCV 96.0 81.3 - 96.4 fL [facility] MCH 31.4 27.1 - 33.3 pg [facility] MCHC 32.7 32.3 - 35.7 g/dL [facility] RDW CV 13.1 11.1 - 14.9 % [facility] RDW SD 45.5 35.7 - 48.1 fL [facility] NRBC abs 0.00 0.00 - 0.01 K/cumm [facility] Blood 04/01/2025 10:5 1 PM FIELD TRAFFIC INVESTIGATOR 04/01/2025 11:10 PM FIELD TRAFFIC INVESTIGATOR Bola Harris MD LAB BLOOD ORDERABLES F inal Result Performing Organization Address [facility] Co de Phone Number [facility] [place] [address] * aPTT (04/01/2025 10:51 PM FIELD TRAFFIC INVESTIGATOR) aPTT 28 26 - 38 sec Comment: Interpretive Data Heparin therapeutic range: 66.0 - 100.0 seconds. Range based on correlation with therapeutic heparin activity range of 0.3 - 0.7 Units/mL. Blood 04/01/2025 10:5 1 PM FIELD TRAFFIC INVESTIGATOR 04/01/2025 11:02 PM FIELD TRAFFIC INVESTIGATOR Bola Harris MD LAB BLOOD ORDERABLES F inal Result Performing Organization Address City/[facility] Co de Phone Number [facility] [place] [address] * Protime-INR (04/01/2025 10:51 PM FIELD TRAFFIC INVESTIGATOR) PT 11.1 10.2 - 13.5 sec INR 0.98 0.90 - 1.20 [facility] Comment: Interpretive data Oral anticoagulant therapeutic ranges: Venous thromboembolism prophylaxis or treatment: 2.0-3.0 CARDIOLOGY Standard range: 2.0-3.0 High-intensity range: 2.5-3.5 Refer to indication-specific guidelines for appropriate target ranges for prosthetic heart valve replacement. Current interpretive data was last revised on 2019. Blood 04/01/2025 10:5 1 PM FIELD TRAFFIC INVESTIGATOR 04/01/2025 11:02 PM FIELD TRAFFIC INVESTIGATOR Bola Harris MD LAB BLOOD ORDERABLES F inal Result Performing Organization Address City/[facility]/ZIP Co de Phone Number [facility] Department [place] [address] * Type and screen (04/01/2025 10:51 PM FIELD TRAFFIC INVESTIGATOR) Pathologist [facility] ABO Rh O Positive Todd, indirect Negative [facility] Blood 04/01/2025 10:5 1 PM FIELD TRAFFIC INVESTIGATOR 04/01/2025 11:22 PM FIELD TRAFFIC INVESTIGATOR Narrative [facility] - 04/02/2025 12:12 AM FIELD TRAFFIC INVESTIGATOR Has the patient had Daratumumab or Isatuximab in the past 6 months?->Unknown Bola Harris MD LAB BLOOD BANK TEST OR DERABLES Final Result Performing Organization Address City/[facility] Co de Phone Number [facility] Department [place] [address] * (ABNORMAL) Comprehensive metabolic panel (04/01/2025 10:51 PM FIELD TRAFFIC INVESTIGATOR) Pathologist [facility] Sodium 144 135 - 145 mmol/L Potassium, pl 4.3 3.3 - 4.9 mmol/L [facility] Chloride 101 97 - 110 mmol/L [facility] CO2 34(H) 22 - 32 mmol/L [facility] Anion gap 9 2 - 15 mmol/L [facility] BUN 19 6 - 25 mg/dL [facility] Creatinine 1.21 0.80 - 1.30 mg/dL [facility] Glucose 145 70 - 199 mg/dL [facility] Comment: Interpretive Data Fasting glucose >/= [...] Calcium 9.0 8.5 - 10.3 mg/dL [facility] Bilirubin, total 1.0 0.1 - 1.2 mg/dL [facility] Protein, pl 6.6 6.5 - 8.5 g/dL [facility] Albumin 4.1 3.5 - 5.0 g/dL [facility] Alk phos 86 40 - 130 Units/L [facility] ALT 17 7 - 55 Units/L [facility] AST 22 10 - 50 Units/L [facility] Blood 04/01/2025 10:5 1 PM FIELD TRAFFIC INVESTIGATOR 04/01/2025 11:10 PM FIELD TRAFFIC INVESTIGATOR us Bola Harris MD LAB BLOOD ORDERABLES F inal Result [facility] Department [place] [address] from Last 3 Months Insurance MEDICARE [employer] MEDICARE [facility] [employer] Advance Directives For more information, please contact: [phone] * LIMITED - No CPR (Latest Code [...] 5:10 AM 04/02/2025 6:02 AM Care Teams Body Finisher Relationship Specialty Start Date End Date Jayjay Fernandes MD [address] [place] [address] PCP - General Family Medicine 04/01/25
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
[2025-04-28 14:48] LABS: Hematocrit 30.3 % (37.0-46.0); Hemoglobin 9.3 g/dL (12.4-15.3); Immature Granulocyte Percent A 0.2 % (0.0-0.0); Lymphocytes Absolute Auto 1.13 K/mm3 (1.10-4.50); Mean Corpuscular HGB Conc 30.7 g/dL (32-36); Mean Corpuscular Hemoglobin 30.2 pg (27.0-31.0); Mean Corpuscular Volume 98.4 fL (78.0-102.0); Nucleated Red Blood Cells Absolute Auto 0.00 K/mm3 (0.00-0.00); Nucleated Red Blood Cells Perc 0.0 % (0-0.0); Platelet Count Result 241 K/mm3 (150-420); Red Blood Count 3.08 M/mm3 (4.70-6.10); White Blood Count 5.0 K/mm3 (4.8-10.8)
[2025-04-28 14:54] LABS: Alanine Aminotransferase 19 U/L (6-50); Albumin Level 3.7 g/dL (3.5-5.1); Alkaline Phosphatase 89 U/L (38-126); Anion Gap 5.99999 mmol/L (4-12); Aspartate Amino Transferase 28 U/L (17-59); Bilirubin,Total 0.6 mg/dL (0.2-1.3); Blood Urea Nitrogen 16 mg/dL (9-20); Calcium 8.8 mg/dL (8.4-10.2); Carbon Dioxide > 40 mmol/L (22-30); Chloride 93 mmol/L (98-107); Estimated CRCL calculation 44 ml/min; Estimated Glomerular Filt Rate > 60; Glucose 138 mg/dL (65-110); Osmolality Calculated 291 mOsm/kg (285-295); Sodium 139 mmol/L (137-145); Total Protein 6.4 g/dL (6.3-8.2)
[2025-04-28 14:56] LABS: INR 0.9; Prothrombin Time 10.5 Seconds (9.50-12.1)
[2025-04-28] MEDS: MORPHINE SULFATE (*CRX) 2 MG/ML INJ IV PUSH (14:56)
[2025-04-28] MEDS: diazePAM INJ (*CRX) 10 MG/2 ML SYRINGE 5 MG IV PUSH (14:57)
[2025-04-28 15:03] LABS: HCO3 ABG 36.8 mmol/L (23-29); Oxygen Saturation ABG 98.6 % (95-97); PCO2 ABG 50.8 mmHg (35-45); PO2 ABG 157.2 mmHg (75-85)
[2025-04-28 15:06] LABS: Troponin I 0.030 ng/mL (0.000-0.034)
[2025-04-28 15:06] LABS: Liters per Minute 3.0 LPM; Site Drawn LEFT BRACHIAL
[2025-04-28 15:13] LABS: Potassium 2.8 mmol/L (3.4-5.0)
[2025-04-28 15:21] LABS: Influenza A QL RT-PCR Negative (Negative); Influenza B QL RT-PCR Negative (Negative); SARS-CoV-2 RNA PCR Positive (Negative)
[2025-04-28 15:22] LABS: RSV RNA, RT-PCR Negative (Negative)
--- OUTSIDE RECORDS SUMMARY | 2025-04-28 15:33 | XMS_ITS | Clinical Summary ---
Author Organization [facility] Address [address] [place] [address] Care Team Providers Care Legal Investigator Name Role Phone Jamie Grande MD Unavailable [phone] Jayjay Fernandes MD Primary Care Provider [phone] Samia Bautista PA-C Unavailable [phone] Luis Alberto Spears MD Unavailable [phone] Allergies Active Allergy Reactions Criticality Noted Date [...] situ Overview (03/14/2016): [employer] VR [id number] implanted on 08/23/15 Hyperlipidemia LV dysfunction CAD (coronary artery disease) Aortic valve disorder Overview (03/14/2016): calcified without stenosis VT (ventricular tachycardia) Overview (03/14/2016): by report CVA (cerebral vascular accident) Overview (03/14/2016): h/o Resolved Problems Problem Noted Date Diagnosed Date Resolved Date History of GI bleed 04/08/2018 04/08/20 18 Ischemic cardiomyopathy 07/03 Encounters Date Type Department Care Team Description 02/24/2025 Telephone [facility] [address] [place] [address] Ledy Swenson ANP- Problem (Pt ) 02/02/2025 1:00 AM CDT Allied Health/Nurse Visit [facility] [address] [place] [address] Jamie Grande MD Rajagopalan, Bharath, MD from [...] Sex Assigned at Male 06/25/2024 7:37 PM HIP HOP PERFORMERS Legal Sex Male 11:27 PM CDT Gender Identity Not on file Sexual Orientation Not on file Last Filed Vital Signs Vital Sign Reading Time Taken Comments Blood Pressure 99/51 10/27/2024 12:14 PM CDT Pulse 64 10/27/2024 12:14 PM CDT Temperature 36.7 C (98 F) 06/26/2024 12:40 AM HIP HOP PERFORMERS Respiratory Rate 24 06/26/2024 12:40 AM HIP HOP PERFORMERS Oxygen Saturation 95% 10/27/2024 12:14 PM CDT 3L O2 Inhaled Oxygen Concentration - - Weight 67.6 kg (149 lb) 10/27/2024 12:14 PM CDT Height 180.3 cm (5' 11) 10/27/2024 12:14 PM CDT Body Mass Index 20.78 10/27/2024 12:14 PM CDT Plan of Treatment Upcoming Encounters Date Type Department Care Team (Late st Contact Info) Description 05/13/2025 1:45 AM HIP HOP PERFORMERS Allied Health/Nurse Visit [facility] [address] [place] [address] Jamie Grande MD [address] [place] [address] 10/26/2025 10:45 AM CDT Office Visit [facility] [place] [address] [place] [address] Luis Alberto Spears MD [address] [place] [address] 10/26/2025 10:45 AM CDT Allied Health/Nurse Visit [facility] [place] [address] [place] [address] Luis Alberto Spears MD [address] [place] [address] Health Maintenance Due Date Last Done Comments [...] this topic Medical Devices Implanted Type Area Door Tender Device Identifier Shelf Expiration Date Model / Serial / Lot Sjm Sc Icd Implanted:08/04 by Jamie Grande MD (Quantity not on file) ICD [facility] [facility] - DIV [employer] ELLIPSE VR [id number] / [id number] / Procedures Procedure Name Priority Date/Time Associated [...] Conversion Md [facility] Final R esult [facility] TO EPIC CONVERSION from Last 3 Months or Most Recently Relevant to Health Maintenance Insurance [employer] MEDICARE MEDICARE Advance Directives * DNR (Latest Code Status on File) Date Activated Date Inactivated Comments 02/17/2018 8:33 PM 02/26/2018 8:04 PM * Full Code Date Activated Date Inactivated Comments 02/17/2018 7:51 PM 02/17/2018 8:33 PM Care Teams Legal Investigator Relationship Specialty Start Date End Date Jayjay Fernandes MD [address] [place] [address] PCP - General FAMILY PRACTICE 04/03/17 Jamie Grande MD [address] [place] [phone] CARDIOVASCULAR DISEASE 03/13/16 Samia Bautista PA-C [address] [place] [address] Referring Physician PHYSICIAN RN ONCOLOGY CLINICAL 09/15/24 Luis Alberto Spears MD [address] [place] [address] Consulting Physician CLINICAL CARDIAC ELECTROPHYSIOLOGY 09/15/24
--- OUTSIDE RECORDS SUMMARY | 2025-04-28 15:33 | XMS_ITS | Encounter Summary ---
Author Organization [facility] Address [address] [place] [address] Care Team Providers Care Business Professor Name Role Phone Jamie Graned MD Unavailable [phone] Jayjay Fernandes MD Primary Care Provider [phone] Avinash Monroe MD Unavailable [phone] Samia Bautista PA-C Unavailable [phone] Luis Alberto Spears MD Unavailable [phone] Encounter Details Date Type Department Care Team (Late st Contact Info) Description 08/09/2015 [facility] AT [address] [place] [phone] Jamie Grande MD [address] [place] [address] Social History Tobacco Use Types Packs/Day Years Used Date Smoking Tobacco: Every Day Cigarettes 0.5 63 Comments:Current smoker, 1/2 PPD for 63 years Alcohol Use Standard Drinks/Week Comments Yes 0 (1 standard drink = 0.6 oz pur e alcohol) Wine 3-4 daily, vodka, gin. Sex and Gender Information Value Date Recorded Sex Assigned at Male 06/25/2024 7:37 PM DIRECTOR INTERNAL COMMUNICATIONS Legal Sex Male 11:27 PM CDT Gender Identity Not on file Sexual Orientation Not on file documented as of this encounter Plan of Treatment Upcoming Encounters Date Type Department Care Team (Late st Contact Info) Description 05/13/2025 1:45 AM DIRECTOR INTERNAL COMMUNICATIONS Allied Health/Nurse Visit [facility] [address] [place] [address] Jamie Grande MD [address] [place] [phone] 10/26/2025 10:45 AM CDT Office Visit [facility] [address] [place] [phone] Luis Alberto Spears MD [address] [place], [place] [phone] 10/26/2025 10:45 AM CDT Allied Health/Nurse Visit [facility] [address] [place] [address] Luis Alberto Spears MD [address] [place] [address] documented as of this encounter Visit Diagnoses Not on filedocumented in this encounter Care Teams Business Professor Relationship Specialty Start Date End Date Jayjay Fernandes MD [address] [place] [phone] PCP - General FAMILY PRACTICE 04/03/17 Jamie Grande MD [address] [place] [phone] CARDIOVASCULAR DISEASE 03/13/16 Avinash Monroe MD [address] [place] [address] [place] [employer] Teacher CARDIOVASCULAR DISEASE 04/07/19 09/14/24 Samia Bautista PA-C [address] [place] [address] Referring Physician PHYSICIAN TOP PRECIPITATOR OPERATOR 09/15/24 Luis Alberto Spears MD [address] [place] [address] Consulting Physician CLINICAL CARDIAC ELECTROPHYSIOLOGY 09/15/24 documented as of this encounter
--- OUTSIDE RECORDS SUMMARY | 2025-04-28 15:33 | XMS_ITS | Clinical Summary ---
Author Organization [facility] Address [address] [place] [address] Phone Care Team Providers Care Analysis Evaluator Name Role Phone Percy Michaels MD Primary Care Provider [phone] Social History Tobacco Use Types Packs/Day Years [...] complete this topic Insurance MEDICARE Care Teams Analysis Evaluator Relationship Specialty Start Date End Date Percy Michaels MD [address] [place] [id number] PCP - General Endocrinology 11/24/19
--- OUTSIDE RECORDS SUMMARY | 2025-04-28 15:33 | XMS_ITS | Clinical Summary ---
Author Organization [facility] Address [address] [place] [address] Care Team Providers Care Carrier Operator Name Role Phone Jayjay Fernandes MD Primary Care Provider [phone] Allergies No known active allergies Medications ALPRAZolam [...] 04/05/2025 Assessment & Plan (04/06/2025 10:50 AM BARREL ASSEMBLER): - Cont home finasteride and flomax. - New urinary retention on 04/05, with discomfort. Bladder scan 600+. Persistent retention after straight cath - Malone placed last night - Will likely need repeat void trial at rehab Assessment & Plan (04/05/2025 3:48 PM BARREL ASSEMBLER): - Cont home finasteride and flomax. - New urinary retention on 04/05, with discomfort. Bladder scan 600+ - Bladder scan/ Straight cath q4 PRN Lower GI bleed 04/03/2025 Assessment & Plan (04/06/2025 10:50 AM BARREL ASSEMBLER): Patient presented with recurrent painless hematochezia. Has had this issue since almost 2019. Last eval was with sigmoidoscopy in Jun this year but prep was sub optimal however no active bleeding was seen. Was also recently admitted at [facility] (no scopes or transfusions over there) and discharged few days before presenting to [facility]. Last colonoscopy was 2018. He is [...] CTA Assessment & Plan (04/05/2025 3:48 PM BARREL ASSEMBLER): Patient presented with recurrent painless hematochezia. Has had this issue since almost 2018. Last eval was with sigmoidoscopy in Jun this year but prep was sub optimal however no active bleeding was seen. Was also recently admitted at [facility]SH (no scopes or transfusions over there) and discharged few days before presenting to [facility]. Last colonoscopy was 2018. He is [...] CTA Assessment & Plan (2025 12:16 PM BARREL ASSEMBLER): Patient presented with recurrent painless hematochezia. Has had this issue since almost 2018. Last eval was with sigmoidoscopy in jun this year but prep was sub optimal however no active bleeding was seen. Was also recently admitted at [facility]SH (no scopes or transfusions over there) and discharged few days before presenting to [facility]. Last colonoscopy was 2017. He is [...] CTA Assessment & Plan (04/03/2025 12:17 PM BARREL ASSEMBLER): Patient presented with recurrent painless hematochezia. Has had this issue since almost 2018. Last eval was with sigmoidoscopy in jun this year but prep was sub optimal however no active bleeding was seen. Was also recently admitted at [facility]SH (no scopes or transfusions over there) and discharged few days before presenting to [facility]. Last colonoscopy was 2017. He is [...] 04/03/2025 Assessment & Plan (04/06/2025 10:50 AM BARREL ASSEMBLER): Patient presented with recurrent painless hematochezia. Has had this issue since almost 2018. Last eval was with sigmoidoscopy in Jun this year but prep was sub optimal however no active bleeding was seen. Was also recently admitted at OSH (no scopes or transfusions over there) and discharged few days before presenting to [facility]. Last colonoscopy was 2017. He is [...] CTA Assessment & Plan (04/05/2025 3:48 PM BARREL ASSEMBLER): Patient presented with recurrent painless hematochezia. Has had this issue since almost 2018. Last eval was with sigmoidoscopy in Jun this year but prep was sub optimal however no active bleeding was seen. Was also recently admitted at OSH (no scopes or transfusions over there) and discharged few days before presenting to [facility]. Last colonoscopy was 2017. He is [...] CTA Assessment & Plan (2025 12:16 PM BARREL ASSEMBLER): Patient presented with recurrent painless hematochezia. Has had this issue since almost 2018. Last eval was with sigmoidoscopy in jun this year but prep was sub optimal however no active bleeding was seen. Was also recently admitted at OSH (no scopes or transfusions over there) and discharged few days before presenting to [facility]. Last colonoscopy was 2017. He is [...] CTA Assessment & Plan (04/03/2025 12:17 PM BARREL ASSEMBLER): Patient presented with recurrent painless hematochezia. Has had this issue since almost 2018. Last eval was with sigmoidoscopy in jun this year but prep was sub optimal however no active bleeding was seen. Was also recently admitted at [facility]SH (no scopes or transfusions over there) and discharged few days before presenting to [facility]. Last colonoscopy was 2017. He is [...] 04/03/2025 Assessment & Plan (04/06/2025 10:50 AM BARREL ASSEMBLER): - S/p CABG and ICD. Cont home asa and statin. Assessment & Plan (04/05/2025 3:48 PM BARREL ASSEMBLER): - S/p CABG and ICD. Cont home asa and statin. Assessment & Plan (2025 12:16 PM BARREL ASSEMBLER): S/p CABG and ICD. Cont home asa and statin Assessment & Plan (04/03/2025 12:17 PM BARREL ASSEMBLER): S/p CABG and ICD. Cont home asa and statin History of COPD 04/03/2025 Assessment & Plan (04/06/2025 10:50 AM BARREL ASSEMBLER): On 3 L O2 at baseline. No [...] discharge. Assessment & Plan (04/05/2025 3:48 PM BARREL ASSEMBLER): On 3 L O2 at baseline. No [...] discharge. Assessment & Plan (2025 12:16 PM BARREL ASSEMBLER): On 3 L o2 at baseline. No [...] discharge. Assessment & Plan (04/03/2025 12:17 PM BARREL ASSEMBLER): On 3 L o2 at baseline. No [...] 04/03/2025 Assessment & Plan (04/06/2025 10:50 AM BARREL ASSEMBLER): - Cont home finasteride and flomax. - New urinary retention on 04/05, with discomfort. Bladder scan 600+. Persistent retention after straight cath - Malone placed last night - Will likely need repeat void trial at rehab Assessment & Plan (04/05/2025 3:48 PM BARREL ASSEMBLER): - Cont home finasteride and flomax. - New urinary retention on 04/05, with discomfort. Bladder scan 600+ - Bladder scan/ Straight cath q4 PRN Assessment & Plan (2025 12:16 PM BARREL ASSEMBLER): Cont home finasteride and flomax Assessment & Plan (04/03/2025 12:17 PM BARREL ASSEMBLER): Cont home finasteride and flomax Chronic dyspnea, improved 04/03/2025 Assessment & Plan (04/06/2025 10:50 AM BARREL ASSEMBLER): On 3 L O2 at baseline. No [...] discharge. Assessment & Plan (04/05/2025 3:48 PM BARREL ASSEMBLER): On 3 L O2 at baseline. No [...] discharge. Assessment & Plan (2025 12:16 PM BARREL ASSEMBLER): On 3 L o2 at baseline. No [...] discharge. Assessment & Plan (04/03/2025 12:17 PM BARREL ASSEMBLER): On 3 L o2 at baseline. No [...] 04/02/2025 Assessment & Plan (04/06/2025 10:50 AM BARREL ASSEMBLER): Patient presented with recurrent painless hematochezia. Has had this issue since almost 2018. Last eval was with sigmoidoscopy in Jun this year but prep was sub optimal however no active bleeding was seen. Was also recently admitted at OSH (no scopes or transfusions over there) and discharged few days before presenting to [facility]. Last colonoscopy was 2017. He is [...] CTA Assessment & Plan (04/05/2025 3:48 PM BARREL ASSEMBLER): Patient presented with recurrent painless hematochezia. Has had this issue since almost 2018. Last eval was with sigmoidoscopy in Jun this year but prep was sub optimal however no active bleeding was seen. Was also recently admitted at OSH (no scopes or transfusions over there) and discharged few days before presenting to [facility]. Last colonoscopy was 2017. He is [...] CTA Assessment & Plan (2025 12:16 PM BARREL ASSEMBLER): Patient presented with recurrent painless hematochezia. Has had this issue since almost 2018. Last eval was with sigmoidoscopy in jun this year but prep was sub optimal however no active bleeding was seen. Was also recently admitted at OSH (no scopes or transfusions over there) and discharged few days before presenting to [facility]. Last colonoscopy was 2017. He is [...] CTA Assessment & Plan (04/03/2025 12:17 PM BARREL ASSEMBLER): Patient presented with recurrent painless hematochezia. Has had this issue since almost 2018. Last eval was with sigmoidoscopy in jun this year but prep was sub optimal however no active bleeding was seen. Was also recently admitted at OSH (no scopes or transfusions over there) and discharged few days before presenting to [facility]. Last colonoscopy was 2017. He is [...] CTA Assessment & Plan (04/02/2025 6:17 AM BARREL ASSEMBLER): Melena + BRBPR. - recurrent GIB since 2018. Hospitalized this year 07/2024 (flex sig done but no active bleeding) and 4 days prior at [facility] (records not available but no transfusions or [...] 04/02/2025 Assessment & Plan (04/06/2025 10:50 AM BARREL ASSEMBLER): OSH TTE 07/2024 w/ EF 35-40%. Home [...] trend Assessment & Plan (04/05/2025 3:48 PM BARREL ASSEMBLER): OSH TTE 07/2024 w/ EF 35-40%. Home [...] trend Assessment & Plan (2025 12:16 PM BARREL ASSEMBLER): OSH TTE 07/2024 w/ EF 35-40%. Home [...] trend Assessment & Plan (04/03/2025 12:17 PM BARREL ASSEMBLER): OSH TTE 07/2024 w/ EF 35-40%. Home meds include coreg and lasix 40 bid. Appears euvolumic without signs of exacerbation. CXR on 04/02 without edema. 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 Assessment & Plan (04/05/2025 3:48 PM BARREL ASSEMBLER): - Resuming home xanax and zoloft. Assessment & Plan (2025 12:16 PM BARREL ASSEMBLER): Resuming home xanax and zoloft Assessment & Plan (04/03/2025 12:17 PM BARREL ASSEMBLER): Resuming home xanax and zoloft Assessment & Plan (04/02/2025 6:17 AM BARREL ASSEMBLER): Xanax prn nightly Chronic respiratory failure with hypoxia 025 Assessment & Plan (04/06/2025 10:50 AM BARREL ASSEMBLER): On 3 L O2 at baseline. No [...] discharge. Assessment & Plan (04/05/2025 3:48 PM BARREL ASSEMBLER): On 3 L O2 at baseline. No [...] discharge. Assessment & Plan (2025 12:16 PM BARREL ASSEMBLER): On 3 L o2 at baseline. No [...] discharge. Assessment & Plan (04/03/2025 12:17 PM BARREL ASSEMBLER): On 3 L o2 at baseline. No [...] dyspnea Assessment & Plan (04/02/2025 6:17 AM BARREL ASSEMBLER): From COPD, on 3L O2 - only on albuterol at home Plan: - duonebs prn Goals of care, counseling/discussion 04/02/2025 Assessment & Plan (04/06/2025 10:50 AM BARREL ASSEMBLER): No family members so POA is friendWeiell . - Code status was confirmed to be DNR/DNI on 04/02 by admitting physician Assessment & Plan (04/05/2025 3:48 PM BARREL ASSEMBLER): No family members so POA is friendWeiell . - Code status was confirmed to be DNR/DNI on 04/02 by admitting physician Assessment & Plan (2025 12:16 PM BARREL ASSEMBLER): No family members so POA = Friend Wei Tejada [phone]. Code status was confirmed to be DNRDNI on 04/02 by admitting physician Assessment & Plan (04/03/2025 12:17 PM BARREL ASSEMBLER): No family members so POA = Friend Wei Tejada [phone] - confirmed DNRDNI on 04/02 Assessment & Plan (04/02/2025 6:17 AM BARREL ASSEMBLER): No family members so POA = Friend Wei Tejada [phone] - confirmed DNRDNI on 04/02 History of CAD (coronary artery disease) 025 Assessment & Plan (04/06/2025 10:50 AM BARREL ASSEMBLER): - S/p CABG and ICD. Cont home asa and statin. Assessment & Plan (04/05/2025 3:48 PM BARREL ASSEMBLER): - S/p CABG and ICD. Cont home asa and statin. Assessment & Plan (2025 12:16 PM BARREL ASSEMBLER): S/p CABG and ICD. Cont home asa and statin Assessment & Plan (04/03/2025 12:17 PM BARREL ASSEMBLER): S/p CABG and ICD. Cont home asa and statin Assessment & Plan (04/02/2025 6:17 AM BARREL ASSEMBLER): S/p CABG - statin - hold ASA Primary hypertension 02/25/2020 Assessment & Plan (04/02/2025 6:17 AM BARREL ASSEMBLER): Hold antihypertensives d/t GIB Resolved Problems Problem Noted Date Diagnosed Date Resolved Date FELICITY (acute kidney injury) 04/02/2025 Assessment & Plan (04/03/2025 12:17 PM BARREL ASSEMBLER): Cr at baseline Assessment & Plan (04/02/2025 6:17 AM BARREL ASSEMBLER): Cr 1.2 (Cr 0.9 in 07/2024) - likely pre-renal. No signs of heart failure to suggest cardiorenal Plan: - may need a bit of fluids Encounters Date Type Department Care Team Description 04/01/2025 10:17 PM BARREL ASSEMBLER - 04/06/2025 10:33 PM BARREL ASSEMBLER Hospital Encounter [facility] [address] [place] [address] Aristeo Plunkett Jr., MD [place], [place], [...] on file Legal Sex Male 9:52 PM BARREL ASSEMBLER Gender Identity Not on file Sexual Orientation Not on file Last Filed Vital Signs Vital Sign Reading Time Taken Comments Blood Pressure 148/61 04/06/2025 7:46 PM BARREL ASSEMBLER Pulse 102 04/06/2025 9:05 PM BARREL ASSEMBLER Temperature 36.8 C (98.2 F) 04/06/2025 7:46 PM BARREL ASSEMBLER Respiratory Rate 18 04/06/2025 9:05 PM BARREL ASSEMBLER Oxygen Saturation 95% 04/06/2025 9:05 PM BARREL ASSEMBLER Inhaled Oxygen Concentration - - Weight 63.5 kg (140 lb 1.6 oz) 04/03/2025 1:35 P M BARREL ASSEMBLER Height - - Body Mass Index - [...] URINALYSIS, MICROSCOPIC ONLY Routine 04/06/2025 9:17 AM BARREL ASSEMBLER URINE CULTURE Routine 04/06/2025 9:17 AM BARREL ASSEMBLER URINALYSIS AND REFLEX TO MICROSCOPIC AND CULTURE Routine 04/06/2025 9:17 AM BARREL ASSEMBLER CBC WITHOUT DIFFERENTIAL Timed 04/06/2025 8:59 AM BARREL ASSEMBLER MAGNESIUM Routine 04/05/2025 11:51 PM BARREL ASSEMBLER EGFR Routine 04/05/2025 11:51 PM BARREL ASSEMBLER BASIC METABOLIC PANEL Routine 04/05/2025 11:51 PM BARREL ASSEMBLER CBC WITHOUT DIFFERENTIAL Timed 04/05/2025 11:51 PM BARREL ASSEMBLER POCT GLUCOSE DEVICE Routine 04/05/2025 8 :36 AM BARREL ASSEMBLER CBC WITHOUT DIFFERENTIAL Timed 04/05/2025 6:59 AM BARREL ASSEMBLER EGFR Routine 2025 9:00 PM BARREL ASSEMBLER TYPE AND SCREEN Timed 2025 9:00 PM BARREL ASSEMBLER BASIC METABOLIC PANEL Routine 2025 9:00 PM BARREL ASSEMBLER CBC WITHOUT DIFFERENTIAL Timed 2025 9:00 PM BARREL ASSEMBLER CBC WITHOUT DIFFERENTIAL Timed 2025 9:49 AM BARREL ASSEMBLER IRON PROFILE W/ IBC Routine 04/03/2025 8 :22 PM BARREL ASSEMBLER FERRITIN Routine 04/03/2025 8:22 PM BARREL ASSEMBLER EGFR Routine 04/03/2025 8:22 PM BARREL ASSEMBLER BASIC METABOLIC PANEL Routine 04/03/2025 8:22 PM BARREL ASSEMBLER CBC WITHOUT DIFFERENTIAL Timed 04/03/2025 8:22 PM BARREL ASSEMBLER CBC WITHOUT DIFFERENTIAL Routine 04/03/2025 4:01 AM BARREL ASSEMBLER EGFR Routine 04/02/2025 7:30 PM BARREL ASSEMBLER CBC WITHOUT DIFFERENTIAL Timed 04/02/2025 7:30 PM BARREL ASSEMBLER BASIC METABOLIC PANEL Routine 04/02/2025 7:30 PM BARREL ASSEMBLER CBC WITHOUT DIFFERENTIAL Timed 04/02/2025 7:30 PM BARREL ASSEMBLER EGFR Timed 04/02/2025 1:23 PM BARREL ASSEMBLER CBC WITHOUT DIFFERENTIAL Timed 04/02/2025 1:23 PM BARREL ASSEMBLER BASIC METABOLIC PANEL Timed 04/02/2025 1:23 PM BARREL ASSEMBLER XR CHEST 1 VIEW ED Urgent/IP Urgent 04/02/2025 10:17 AM BARREL ASSEMBLER CBC WITHOUT DIFFERENTIAL STAT 04/02/2025 6:14 AM BARREL ASSEMBLER ECG 12-LEAD Routine 04/02/2025 3:30 AM BARREL ASSEMBLER CBC WITHOUT DIFFERENTIAL Timed 04/02/2025 3:10 AM BARREL ASSEMBLER TROPONIN I HIGH-SENSITIVITY 2-HOUR Timed 04/02/2025 3:10 AM BARREL ASSEMBLER BLOOD GAS, VENOUS STAT 04/02/2025 1:3 4 AM BARREL ASSEMBLER TROPONIN I HIGH-SENSITIVITY SERIES (BASELINE, 2HR, 4HR, 6HR) STAT 04/02/2025 1:11 AM BARREL ASSEMBLER PRO B-TYPE NATRIURETIC PEPTIDE STAT 04/02/2025 1:10 AM BARREL ASSEMBLER B CHECK SAMPLE STAT 04/02/2025 12:[address] ABDOMEN PELVIS W WO CONTRAST ED Urgent/IP Urgent 04/02/2025 12:37 AM BARREL ASSEMBLER POCT CREATININE - DEVICE Routine 04/01/2025 11:42 PM BARREL ASSEMBLER HEPARIN ANTI FACTOR XA ACTIVITY STAT 04/01/2025 10:51 PM BARREL ASSEMBLER EGFR STAT 04/01/2025 10:51 PM BARREL ASSEMBLER DIFFERENTIAL AUTO STAT 04/01/2025 10: 51 PM BARREL ASSEMBLER TYPE AND SCREEN STAT 04/01/2025 10:51 PM BARREL ASSEMBLER APTT STAT 04/01/2025 10:51 PM BARREL ASSEMBLER PROTIME-INR STAT 04/01/2025 10:51 PM BARREL ASSEMBLER COMPREHENSIVE METABOLIC PANEL STAT 04/01/2025 10:51 PM BARREL ASSEMBLER CBC WITH AUTO DIFFERENTIAL STAT 04/01/2025 10:51 PM BARREL ASSEMBLER from Last 3 Months Results * (ABNORMAL) Urinalysis reflex to microscopic and culture Urine (04/06/2025 9:17 AM BARREL ASSEMBLER) Color, ur Cristina Yellow Clarity, ur Cloudy(A) Clear [facility] Specific gravity, ur 1.019 1.003 - 1.[address] pH, urine 5.5 [facility] Comment: Interpretive Data U rine pH is affected by diet, medications, systemic acid-base disturbances, and renal tubular function. pH may affect urinary stone formation. For example, urine pH below 6.0 may help reduce the tendency for calcium phosphate stones and pH greater than 6.0 may reduce the tendency for uric acid stone formation. Source: [facility] Current Interpretive Data was last revised on 2017 Protein, ur ql 1+(A) Negative [facility] Glucose, ur ql Negative Negative [facility] Ketones, ur Negative Negative [facility] Bilirubin, ur Negative Negative [facility] Blood, ur 3+(A) Negative [facility] Urobilinogen, ur <2.0 <2.0 mg/dL [facility] Nitrite, ur Negative Negative [facility] Leukocyte esterase, ur 3+(A) Negative [facility] UA reflex comment Reflex to microscopic UA will be performed. [facility] Urine 04/06/2025 9:17 AM BARREL ASSEMBLER 04/06/2025 9:48 AM BARREL ASSEMBLER Kathryn JALLOH LAB MICROBIOLOGY - NERAL ORDERABLES Final Result [facility] Department [place] [address] * (ABNORMAL) Urinalysis, microscopic only (04/06/2025 9:17 AM BARREL ASSEMBLER) WBC, ur >50(A) 0 - 5 /HPF RBC, ur >50(A) 0 - 2 /HPF [facility] Epithelial cells, squamous, ur 1-5 0 - 5 /HPF [facility] Bacteria, ur 1+(A) [facility] Mucous, ur Present(A) [facility] Hyaline casts, ur 6-10 0 - 10 /LPF [facility] Culture Reflex Comment Reflex to urine culture will be performed. [facility] Urine 04/06/2025 9:17 AM BARREL ASSEMBLER 04/06/2025 9:48 AM BARREL ASSEMBLER Kathryn JALLOH LAB URINE ORDERABLES Final Result [facility] [place] [address] * Urine culture Urine (04/06/2025 9:17 AM BARREL ASSEMBLER) Report Final Report: No growth Urine 04/06/2025 9:17 AM BARREL ASSEMBLER 04/06/2025 10:06 AM BARREL ASSEMBLER Narrative [facility] - 04/07/2025 10:58 AM BARREL ASSEMBLER Urine culture reflexed based upon urinalysis results. Testing performed by [facility] Microbiology Laboratory ([phone]) Kathryn JALLOH LAB MICROBIOLOGY - GE NERAL ORDERABLES Final Result Performing Organization Address City/[facility] Co de Phone Number [facility] Department [place] [address] * (ABNORMAL) CBC without differential (04/06/2025 8:59 AM BARREL ASSEMBLER) WBC 15.79(H) 3.80 - 9.90 K/cumm Hgb 8.0(L) 13.0 - 17.5 g/dL [facility] Hct 24.6(L) 38.9 - 50.3 % [facility] Plt 293 150 - 400 K/cumm [facility] MPV 9.9 9.1 - 12.3 fL [facility] RBC 2.50(L) 4.30 - 5.80 M/cumm [facility] MCV 98.4(H) 81.3 - 96.4 fL [facility] MCH 32.0 27.1 - 33.3 pg [facility] MCHC 32.5 32.3 - 35.7 g/dL [facility] RDW CV 14.4 11.1 - 14.9 % [facility] RDW SD 49.0(H) 35.7 - 48.1 fL [facility] NRBC abs 0.00 0.00 - 0.01 K/cumm [facility] Blood 04/06/2025 8:59 AM BARREL ASSEMBLER 04/06/2025 9:43 AM BARREL ASSEMBLER Jennifer Burris MD LAB BLOOD ORDERABLES Final Re sult Performing Organization Address [facility] Co de Phone Number [facility] [place] [address] * eGFR (04/05/2025 11:51 PM BARREL ASSEMBLER) eGFR 68 >=60 mL/min/1. 73 m2 Comment: [...] reviewed 2021. Blood 04/05/2025 11:5 1 PM BARREL ASSEMBLER 04/06/2025 12:43 AM BARREL ASSEMBLER us Jennifer Burris MD LAB BLOOD ORDERABLES Final Re sult Performing Organization Address [facility] Co de Phone Number [facility] Department [place] [address] * (ABNORMAL) CBC without differential (04/05/2025 11:51 PM BARREL ASSEMBLER) WBC 9.47 3.80 - 9.90 K/cumm Hgb 7.1(L) 13.0 - 17.5 g/dL [facility] Hct 22.7(L) 38.9 - 50.3 % [facility] Plt 241 150 - 400 K/cumm [facility] MPV 10.0 9.1 - 12.3 fL [facility] RBC 2.25(L) 4.30 - 5.80 M/cumm [facility] MCV 100.9(H) 81.3 - 96.4 fL [facility] MCH 31.6 27.1 - 33.3 pg [facility] MCHC 31.3(L) 32.3 - 35.7 g/dL [facility] RDW CV 14.2 11.1 - 14.9 % [facility] RDW SD 51.0(H) 35.7 - 48.1 fL [facility] NRBC abs 0.00 0.00 - 0.01 K/cumm [facility] Blood 04/05/2025 11:5 1 PM BARREL ASSEMBLER 04/06/2025 12:44 AM BARREL ASSEMBLER us Jennifer Burris MD LAB BLOOD ORDERABLES Final Re sult [facility] Department [place] [address] * Magnesium (04/05/2025 11:51 PM BARREL ASSEMBLER) Magnesium 2.0 1.4 - 2.5 mg/dL Blood 04/05/2025 11:5 1 PM BARREL ASSEMBLER 04/06/2025 12:43 AM BARREL ASSEMBLER us Suyapa Syed MD LAB BLOOD ORDERABLES Final Resul t [facility] Department [place] [address] * (ABNORMAL) Basic metabolic panel (04/05/2025 11:51 PM BARREL ASSEMBLER) Sodium 143 135 - 145 mmol/L Potassium, pl 3.2(L) 3.3 - 4.9 mmol/L [facility] Chloride 98 97 - 110 mmol/L [facility] CO2 38(H) 22 - 32 mmol/L [facility] Anion gap 7 2 - 15 mmol/L [facility] BUN 17 6 - 25 mg/dL [facility] Creatinine 1.08 0.80 - 1.30 mg/dL [facility] Glucose 105 70 - 199 mg/dL [facility] Comment: Interpretive Data Fasting glucose >/= [...] 2022. Calcium 8.1(L) 8.5 - 10.3 mg/dL [facility] Blood 04/05/2025 11:5 1 PM BARREL ASSEMBLER 04/06/2025 12:43 AM BARREL ASSEMBLER us Jennifer Burris MD LAB BLOOD ORDERABLES Final Re sult Performing Organization Address [facility]/ZIP Co de Phone Number [facility] Department [place] [address] * POCT glucose (04/05/2025 8:36 AM BARREL ASSEMBLER) [facility] Glucose, POC 114 70 - 199 mg/dL Blood 04/05/2025 8:36 AM BARREL ASSEMBLER 04/05/2025 8:36 AM BARREL ASSEMBLER us Suyapa Syed MD LAB POCT ORDERABLES - DEVICE Fin al Result Performing Organization Address [facility]/ZIP Co de Phone Number [facility] [place] [address] * (ABNORMAL) CBC without differential (04/05/2025 6:59 AM BARREL ASSEMBLER) [facility] WBC 14.23(H) 3.80 - 9.90 K/cumm Hgb 7.8(L) 13.0 - 17.5 g/dL [facility] Hct 24.6(L) 38.9 - 50.3 % [facility] Plt 275 150 - 400 K/cumm [facility] MPV 9.7 9.1 - 12.3 fL [facility] RBC 2.50(L) 4.30 - 5.80 M/cumm [facility] MCV 98.4(H) 81.3 - 96.4 fL [facility] MCH 31.2 27.1 - 33.3 pg [facility] MCHC 31.7(L) 32.3 - 35.7 g/dL [facility] RDW CV 13.7 11.1 - 14.9 % [facility] RDW SD 48.4(H) 35.7 - 48.1 fL [facility] NRBC abs 0.00 0.00 - 0.01 K/cumm [facility] Blood 04/05/2025 6:59 AM BARREL ASSEMBLER 04/05/2025 7:25 AM BARREL ASSEMBLER us Jennifer Burris MD LAB BLOOD ORDERABLES Final Re sult [facility] Department [place] [address] * eGFR (2025 9:00 PM BARREL ASSEMBLER) [facility] eGFR 61 >=60 mL/min/1. 73 m2 [...] last reviewed 2021. Blood 2025 9:00 PM BARREL ASSEMBLER 2025 9:34 PM BARREL ASSEMBLER us Jennifer Burris MD LAB BLOOD ORDERABLES Final Re sult [facility] Department [place] [address] * (ABNORMAL) CBC without differential (2025 9:00 PM BARREL ASSEMBLER) WBC 11.25(H) 3.80 - 9.90 K/cumm Hgb 7.5(L) 13.0 - 17.5 g/dL [facility] Hct 24.2(L) 38.9 - 50.3 % [facility] Plt 249 150 - 400 K/cumm [facility] MPV 9.9 9.1 - 12.3 fL [facility] RBC 2.41(L) 4.30 - 5.80 M/cumm [facility] MCV 100.4(H) 81.3 - 96.4 fL [facility] MCH 31.1 27.1 - 33.3 pg [facility] MCHC 31.0(L) 32.3 - 35.7 g/dL [facility] RDW CV 13.6 11.1 - 14.9 % [facility] RDW SD 49.1(H) 35.7 - 48.1 fL [facility] NRBC abs 0.00 0.00 - 0.01 K/cumm [facility] Blood 2025 9:00 PM BARREL ASSEMBLER 2025 9:33 PM BARREL ASSEMBLER Jennifer Burris MD LAB BLOOD ORDERABLES Final Re sult Performing Organization Address City/[facility]/ZIP Co de Phone Number [facility] [place] [address] * Type and screen (2025 9:00 PM BARREL ASSEMBLER) ABO Rh O Positive Todd, indirect Negative [facility] Blood 2025 9:00 PM BARREL ASSEMBLER 2025 9:50 PM BARREL ASSEMBLER Narrative [facility] - 2025 11:01 PM BARREL ASSEMBLER Has the patient had Daratumumab or Isatuximab in the past 6 months?->Unknown Lida Borja MD PhD LAB BLOOD BANK TEST ORDERAB LES Final Result Performing Organization Address [facility] Co de Phone Number [facility] [place] [address] * (ABNORMAL) Basic metabolic panel (2025 9:00 PM BARREL ASSEMBLER) Pathologist [facility] Sodium 141 135 - 145 mmol/L Potassium, pl 3.7 3.3 - 4.9 mmol/L [facility] Chloride 99 97 - 110 mmol/L [facility] CO2 37(H) 22 - 32 mmol/L [facility] Anion gap 5 2 - 15 mmol/L [facility] BUN 20 6 - 25 mg/dL [facility] Creatinine 1.18 0.80 - 1.30 mg/dL [facility] Glucose 91 70 - 199 mg/dL [facility] Comment: Interpretive Data Fasting glucose >/= [...] 2022. Calcium 8.8 8.5 - 10.3 mg/dL [facility] Blood 2025 9:00 PM BARREL ASSEMBLER 2025 9:34 PM BARREL ASSEMBLER Jennifer Burris MD LAB BLOOD ORDERABLES Final Re sult Performing Organization Address City/[facility]/ZIP Co de Phone Number [facility] [email or web address] [place] [address] * (ABNORMAL) CBC without differential (2025 9:49 AM BARREL ASSEMBLER) WBC 11.45(H) 3.80 - 9.90 K/cumm Hgb 7.9(L) 13.0 - 17.5 g/dL [facility] Hct 24.7(L) 38.9 - 50.3 % [facility] Plt 233 150 - 400 K/cumm [facility] MPV 9.8 9.1 - 12.3 fL [facility] RBC 2.52(L) 4.30 - 5.80 M/cumm [facility] MCV 98.0(H) 81.3 - 96.4 fL [facility] MCH 31.3 27.1 - 33.3 pg [facility] MCHC 32.0(L) 32.3 - 35.7 g/dL [facility] RDW CV 13.7 11.1 - 14.9 % [facility] RDW SD 48.1 35.7 - 48.1 fL [facility] NRBC abs 0.00 0.00 - 0.01 K/cumm [facility] Blood 2025 9:49 AM BARREL ASSEMBLER 2025 10:50 AM BARREL ASSEMBLER Jennifer Burris MD LAB BLOOD ORDERABLES Final Re sult Performing Organization Address City/[facility]/ZIP Co de Phone Number [facility] [place] [address] * eGFR (04/03/2025 8:22 PM BARREL ASSEMBLER) eGFR 72 >=60 mL/min/1. 73 m2 Comment: [...] last reviewed 2021. Blood 04/03/2025 8:22 PM BARREL ASSEMBLER 04/03/2025 8:46 PM BARREL ASSEMBLER Jennifer Burris MD LAB BLOOD ORDERABLES Final Re sult Performing Organization Address City/[facility]/ZIP Co de Phone Number [facility] Department [place] [address] * (ABNORMAL) Iron profile w/ IBC (04/03/2025 8:22 PM BARREL ASSEMBLER) Pathologist [facility] Iron 40(L) 50 - 150 mcg/dL TIBC 219(L) 250 - 400 mcg/dL [facility] Transferrin saturation 18(L) 20 - 50 % [facility] Blood 04/03/2025 8:22 PM BARREL ASSEMBLER 04/03/2025 8:46 PM BARREL ASSEMBLER Jennifer Burris MD LAB BLOOD ORDERABLES Final Re sult [facility] Department [place] [address] * (ABNORMAL) CBC without differential (04/03/2025 8:22 PM BARREL ASSEMBLER) Pathologist [facility] WBC 12.92(H) 3.80 - 9.90 K/cumm Hgb 8.1(L) 13.0 - 17.5 g/dL [facility] Hct 24.8(L) 38.9 - 50.3 % [facility] Plt 248 150 - 400 K/cumm [facility] MPV 9.9 9.1 - 12.3 fL [facility] RBC 2.55(L) 4.30 - 5.80 M/cumm [facility] MCV 97.3(H) 81.3 - 96.4 fL [facility] MCH 31.8 27.1 - 33.3 pg [facility] MCHC 32.7 32.3 - 35.7 g/dL [facility] RDW CV 13.5 11.1 - 14.9 % [facility] RDW SD 47.3 35.7 - 48.1 fL [facility] NRBC abs 0.00 0.00 - 0.01 K/cumm [facility] Blood 04/03/2025 8:22 PM BARREL ASSEMBLER 04/03/2025 8:47 PM BARREL ASSEMBLER us Jennifer Burris MD LAB BLOOD ORDERABLES Final Re sult [facility] Department [place] [address] * Ferritin (04/03/2025 8:22 PM BARREL ASSEMBLER) Pathologist [facility] Ferritin 48 30 - 400 ng/mL Blood 04/03/2025 8:22 PM BARREL ASSEMBLER 04/03/2025 8:46 PM BARREL ASSEMBLER us Jennifer Burris MD LAB BLOOD ORDERABLES Final Re sult [facility] Department [place] [address] * (ABNORMAL) Basic metabolic panel (04/03/2025 8:22 PM BARREL ASSEMBLER) Pathologist [facility] Sodium 140 135 - 145 mmol/L Potassium, pl 3.9 3.3 - 4.9 mmol/L [facility] Chloride 99 97 - 110 mmol/L [facility] CO2 35(H) 22 - 32 mmol/L [facility] Anion gap 6 2 - 15 mmol/L [facility] BUN 18 6 - 25 mg/dL [facility] Creatinine 1.03 0.80 - 1.30 mg/dL [facility] Glucose 134 70 - 199 mg/dL [facility] Comment: Interpretive Data Fasting glucose >/= [...] 2022. Calcium 8.5 8.5 - 10.3 mg/dL [facility] Blood 04/03/2025 8:22 PM BARREL ASSEMBLER 04/03/2025 8:46 PM BARREL ASSEMBLER Jennifer Burris MD LAB BLOOD ORDERABLES Final Re sult [facility] Department [place] [address] * (ABNORMAL) CBC without differential (04/03/2025 4:01 AM BARREL ASSEMBLER) Pathologist [facility] WBC 10.04(H) 3.80 - 9.90 K/cumm Hgb 7.8(L) 13.0 - 17.5 g/dL [facility] Hct 23.3(L) 38.9 - 50.3 % [facility] Plt 217 150 - 400 K/cumm [facility] MPV 9.9 9.1 - 12.3 fL [facility] RBC 2.45(L) 4.30 - 5.80 M/cumm [facility] MCV 95.1 81.3 - 96.4 fL [facility] MCH 31.8 27.1 - 33.3 pg [facility] MCHC 33.5 32.3 - 35.7 g/dL [facility] RDW CV 13.4 11.1 - 14.9 % [facility] RDW SD 46.3 35.7 - 48.1 fL [facility] NRBC abs 0.00 0.00 - 0.01 K/cumm [facility] Blood 04/03/2025 4:01 AM BARREL ASSEMBLER 04/03/2025 4:29 AM BARREL ASSEMBLER Rubin Ricardo MD LAB BLOOD ORDERABLES F inal Result [facility] Department [place] [address] * eGFR (04/02/2025 7:30 PM BARREL ASSEMBLER) eGFR 69 >=60 mL/min/1. 73 m2 Comment: [...] last reviewed 2021. Blood 04/02/2025 7:30 PM BARREL ASSEMBLER 04/02/2025 8:30 PM BARREL ASSEMBLER us Jennifer Burris MD LAB BLOOD ORDERABLES Final Re sult [facility] Department [place] [address] * (ABNORMAL) CBC without differential (04/02/2025 7:30 PM BARREL ASSEMBLER) WBC 10.71(H) 3.80 - 9.90 K/cumm Hgb 8.2(L) 13.0 - 17.5 g/dL [facility] Hct 25.3(L) 38.9 - 50.3 % [facility] Plt 250 150 - 400 K/cumm [facility] MPV 9.9 9.1 - 12.3 fL [facility] RBC 2.61(L) 4.30 - 5.80 M/cumm [facility] MCV 96.9(H) 81.3 - 96.4 fL [facility] MCH 31.4 27.1 - 33.3 pg [facility] MCHC 32.4 32.3 - 35.7 g/dL [facility] RDW CV 13.4 11.1 - 14.9 % [facility] RDW SD 47.4 35.7 - 48.1 fL [facility] NRBC abs 0.00 0.00 - 0.01 K/cumm [facility] Blood 04/02/2025 7:30 PM BARREL ASSEMBLER 04/02/2025 8:31 PM BARREL ASSEMBLER us Jennifer Burris MD LAB BLOOD ORDERABLES Final Re sult [facility] [place], [place] [id number] * (ABNORMAL) CBC without differential (04/02/2025 7:30 PM BARREL ASSEMBLER) WBC 10.91(H) 3.80 - 9.90 K/cumm Hgb 8.2(L) 13.0 - 17.5 g/dL [facility] Hct 25.7(L) 38.9 - 50.3 % [facility] Plt 251 150 - 400 K/cumm [facility] MPV 10.1 9.1 - 12.3 fL [facility] RBC 2.64(L) 4.30 - 5.80 M/cumm [facility] MCV 97.3(H) 81.3 - 96.4 fL [facility] MCH 31.1 27.1 - 33.3 pg [facility] MCHC 31.9(L) 32.3 - 35.7 g/dL [facility] RDW CV 13.4 11.1 - 14.9 % [facility] RDW SD 47.3 35.7 - 48.1 fL [facility] NRBC abs 0.00 0.00 - 0.01 K/cumm [facility] Blood 04/02/2025 7:30 PM BARREL ASSEMBLER 04/02/2025 8:32 PM BARREL ASSEMBLER us Jennifer Burris MD LAB BLOOD ORDERABLES Final Re sult [facility] Department [place] [address] * (ABNORMAL) Basic metabolic panel (04/02/2025 7:30 PM BARREL ASSEMBLER) Pathologist [facility] Sodium 143 135 - 145 mmol/L Potassium, pl 3.5 3.3 - 4.9 mmol/L [facility] Chloride 100 97 - 110 mmol/L [facility] CO2 36(H) 22 - 32 mmol/L [facility] Anion gap 7 2 - 15 mmol/L [facility] BUN 18 6 - 25 mg/dL [facility] Creatinine 1.07 0.80 - 1.30 mg/dL [facility] Glucose 165 70 - 199 mg/dL [facility] Comment: Interpretive Data Fasting glucose >/= [...] 2022. Calcium 8.9 8.5 - 10.3 mg/dL [facility] Blood 04/02/2025 7:30 PM BARREL ASSEMBLER 04/02/2025 8:30 PM BARREL ASSEMBLER us Jennifer Burris MD LAB BLOOD ORDERABLES Final Re sult [facility] Department [place] [address] * eGFR (04/02/2025 1:23 PM BARREL ASSEMBLER) eGFR 73 >=60 mL/min/1. 73 m2 Comment: [...] last reviewed 2021. Blood 04/02/2025 1:23 PM BARREL ASSEMBLER 04/02/2025 1:46 PM BARREL ASSEMBLER us Lida Borja MD PhD LAB BLOOD ORDERABLES Final Result Performing Organization Address [facility] de Phone Number [facility] Department [place] [address] * (ABNORMAL) CBC without differential (04/02/2025 1:23 PM BARREL ASSEMBLER) [facility] WBC 10.85(H) 3.80 - 9.90 K/cumm Hgb 8.4(L) 13.0 - 17.5 g/dL [facility] Hct 25.4(L) 38.9 - 50.3 % [facility] Plt 174 150 - 400 K/cumm [facility] MPV 10.1 9.1 - 12.3 fL [facility] RBC 2.66(L) 4.30 - 5.80 M/cumm [facility] MCV 95.5 81.3 - 96.4 fL [facility] MCH 31.6 27.1 - 33.3 pg [facility] MCHC 33.1 32.3 - 35.7 g/dL [facility] RDW CV 13.4 11.1 - 14.9 % [facility] RDW SD 47.0 35.7 - 48.1 fL [facility] NRBC abs 0.00 0.00 - 0.01 K/cumm [facility] Blood 04/02/2025 1:23 PM BARREL ASSEMBLER 04/02/2025 1:46 PM BARREL ASSEMBLER us Jennifer Burris MD LAB BLOOD ORDERABLES Final Re sult Performing Organization Address [facility] Co de Phone Number [facility] Department [place] [address] * (ABNORMAL) Basic metabolic panel (04/02/2025 1:23 PM BARREL ASSEMBLER) [facility] Sodium 143 135 - 145 mmol/L Potassium, pl 4.0 3.3 - 4.9 mmol/L [facility] Chloride 99 97 - 110 mmol/L [facility] CO2 35(H) 22 - 32 mmol/L [facility] Anion gap 9 2 - 15 mmol/L [facility] BUN 21 6 - 25 mg/dL [facility] Creatinine 1.02 0.80 - 1.30 mg/dL [facility] Glucose 138 70 - 199 mg/dL [facility] Comment: Interpretive Data Fasting glucose >/= [...] 2022. Calcium 8.9 8.5 - 10.3 mg/dL [facility] Blood 04/02/2025 1:23 PM BARREL ASSEMBLER 04/02/2025 1:46 PM BARREL ASSEMBLER us Lida Borja MD PhD LAB BLOOD ORDERABLES Final Result [facility] [place] [address] * XR Chest 1 View (04/02/2025 10:17 AM BARREL ASSEMBLER) Anatomical Region Laterality Modality Body, Chest N/A Digital Radiogra phy 04/02/2025 1:03 PM BARREL ASSEMBLER Impressions 04/02/2025 1:03 PM BARREL ASSEMBLER No prior images available for comparison. Left [...] Armando Martinez M.D. Narrative 04/02/2025 1:03 PM BARREL ASSEMBLER EXAMINATION: 1 view chest radiograph Procedure Note [...] (ABNORMAL) CBC without differential (04/02/2025 6:14 AM BARREL ASSEMBLER) WBC 11.27(H) 3.80 - 9.90 K/cumm Hgb 8.4(L) 13.0 - 17.5 g/dL [facility] Hct 25.3(L) 38.9 - 50.3 % [facility] Plt 210 150 - 400 K/cumm [facility] MPV 10.1 9.1 - 12.3 fL [facility] RBC 2.64(L) 4.30 - 5.80 M/cumm [facility] MCV 95.8 81.3 - 96.4 fL [facility] MCH 31.8 27.1 - 33.3 pg [facility] MCHC 33.2 32.3 - 35.7 g/dL [facility] RDW CV 13.3 11.1 - 14.9 % [facility] RDW SD 46.2 35.7 - 48.1 fL [facility] NRBC abs 0.00 0.00 - 0.01 K/cumm [facility] Blood 04/02/2025 6:14 AM BARREL ASSEMBLER 04/02/2025 6:50 AM BARREL ASSEMBLER us Lida Borja MD PhD LAB BLOOD ORDERABLES Final Result [facility] [place] [address] * ECG 12-LEAD (04/02/2025 3:30 AM BARREL ASSEMBLER) Narrative [facility] - 04/02/2025 3:30 AM BARREL ASSEMBLER Aristeo Plunkett Jr., MD 04/02/2025 3:31 AM ECG 12 lead Date/Time: 04/02/2025 3:30 AM Performed by: Aristeo Plunkett Jr., MD Authorized by: Bola Harirs MD Quality: Tracing quality: Limited by artifact [...] ECG ORDERABLES Final Result Performing Organization Address City/[facility]/ZIP Co de Phone Number [facility] * Troponin I high-sensitivity 2-hour (04/02/2025 3:10 AM BARREL ASSEMBLER) Trop I hs 18 <=35 ng/L Comment: Interpretive Data For further hscTnI resources including the diagnostic algorithm and an aid in interpretation, copy and paste this link: https://bjhlab.testcatalog.org/show/hsTrop-1 Current Interpretive Data last revised 2019. Trop I hs delta 2 ng/L [facility] Trop I hs interp Insignificant CERNER [facility] Blood 04/02/2025 3:10 AM BARREL ASSEMBLER 04/02/2025 3:42 AM BARREL ASSEMBLER Bola Harris MD LAB BLOOD ORDERABLES F inal Result Performing Organization Address City/[facility]/ZIP Co de Phone Number [facility] [place] [address] * (ABNORMAL) CBC without differential (04/02/2025 3:10 AM BARREL ASSEMBLER) Pathologist [facility] WBC 10.77(H) 3.80 - 9.90 K/cumm Hgb 7.7(L) 13.0 - 17.5 g/dL [facility] Hct 23.1(L) 38.9 - 50.3 % [facility] Plt 192 150 - 400 K/cumm [facility] MPV 10.1 9.1 - 12.3 fL [facility] RBC 2.42(L) 4.30 - 5.80 M/cumm [facility] MCV 95.5 81.3 - 96.4 fL [facility] MCH 31.8 27.1 - 33.3 pg [facility] MCHC 33.3 32.3 - 35.7 g/dL [facility] RDW CV 13.2 11.1 - 14.9 % [facility] RDW SD 45.5 35.7 - 48.1 fL [facility] NRBC abs 0.00 0.00 - 0.01 K/cumm [facility] Blood 04/02/2025 3:10 AM BARREL ASSEMBLER 04/02/2025 3:42 AM BARREL ASSEMBLER Bola Harris MD LAB BLOOD ORDERABLES F inal Result [facility] [place] [address] * (ABNORMAL) Blood gas, venous (04/02/2025 1:34 AM BARREL ASSEMBLER) Pathologist [facility] pH, Venous 7.33 7.32 - 7.43 PCO2, Venous 72(H) 40 - 50 mmHg [facility] PO2, Venous 36 mmHg [facility] Comment: Interpretive Data No Reference Range Established Current Interpretive Data was last revised on 2017. HCO3 Venous, Calculated 37(H) 20 - 30 mmol/L [facility] BE, venous 10 mmol/L [facility] Comment: Interpretive Data No Reference Range Established Current Interpretive Data was last revised on 2017. Blood 04/02/2025 1:34 AM BARREL ASSEMBLER 04/02/2025 1:35 AM BARREL ASSEMBLER us Aristeo Plunkett Jr., MD LAB BLOOD ORDERABLES F inal Result Performing Organization Address [facility] de Phone Number [facility] [place] [address] * Troponin I high-sensitivity series (baseline, 2hr, 4hr, 6hr) (04/02/2025 1:11 AM BARREL ASSEMBLER) Trop I hs 16 <=35 ng/L Comment: Interpretive Data For further hscTnI resources including the diagnostic algorithm and an aid in interpretation, copy and paste this link: https://bjhlab.testcatalog.org/show/[email or web address] Current Interpretive Data last revised 2019. Blood 04/02/2025 1:11 AM BARREL ASSEMBLER 04/02/2025 1:39 AM BARREL ASSEMBLER us Bola Harris MD LAB BLOOD ORDERABLES F inal Result Performing Organization Address [facility] de Phone Number [facility] [email or web address] [place] [address] * (ABNORMAL) Pro B-type natriuretic peptide (04/02/2025 1:10 AM BARREL ASSEMBLER) NT-proBNP 902(H) <=450 pg/mL Comment: Interpretive Comments: [...] Revised Date: 2017. Blood 04/02/2025 1:10 AM BARREL ASSEMBLER 04/02/2025 1:42 AM BARREL ASSEMBLER us Aristeo Plunkett Jr., MD LAB BLOOD ORDERABLES F inal Result Performing Organization Address City/[facility] Co de Phone Number [facility] [email or web address] [place] [address] * Check Sample (04/02/2025 12:57 AM BARREL ASSEMBLER) ABO Rh O Positive [facility] HCLL OTHER 04/02/2025 12:5 7 AM BARREL ASSEMBLER 04/02/2025 1:16 AM BARREL ASSEMBLER us Kevin Resendez MD LAB BLOOD ORDERABLES Final R esult Performing Organization Address [facility] Co de Phone Number [facility] [email or web address] [place] [address] [facility] * CT Abdomen Pelvis W WO Contrast (04/02/2025 12:37 AM [employer]REL ASSEMBLER) Anatomical Region Laterality Modality Body N/A Computed Tomogra phy 04/02/2025 2:08 AM [employer]REL ASSEM[employer]ER Impressions 04/02/2025 8:33 AM [employer]REL ASSEM[employer]ER 1. Focus of hyperattenuation along the wall [...] Joss Chaney M.D. Narrative 04/02/2025 8:33 AM BARREL ASSEM[employer]ER EXAMINATION: Computed tomography of the abdomen and [...] Result * POCT creatinine (04/01/2025 11:42 PM [employer]REL ASSEM[employer]ER) Creatinine POC 1.2 0.8 - 1.3 mg/dL Blood 04/01/2025 11:4 2 PM [employer] 04/01/2025 11:42 PM [employer]REL ASSEM[employer]ER Notinfile Unknown LAB POCT ORDERABLES - DEVICE F inal Result Performing Organization Address [facility] Co de Phone Number [facility] [place] [address] * (ABNORMAL) eGFR (04/01/2025 10:51 PM [employer]REL ASSEMBLER) eGFR 59(L) >=60 mL/min/1. 73 m2 Comment: [...] reviewed 2021. Blood 04/01/2025 10:5 1 PM [employer] 04/01/2025 11:10 PM [employer]REL ASSEM[employer]ER Bola Harris MD LAB BLOOD ORDERABLES F inal Result Performing Organization Address City/[facility]/ZIP Co de Phone Number [facility] [place] [address] * (ABNORMAL) Differential, auto (04/01/2025 10:51 PM BARREL ASSEMBLER) Neutrophil abs 10.99(H) 1.50 - 6.50 K/cumm Imm gran abs 0.17(H) 0.00 - 0.10 K/cumm [facility] Lymphocyte abs 1.91 0.80 - 3.30 K/cumm [facility] Monocyte abs 0.65 0.20 - 0.80 K/cumm [facility] Eosinophil abs 0.70(H) 0.00 - 0.50 K/cumm [facility] Basophil abs 0.05 0.00 - 0.10 K/cumm [facility] Neutrophil pct 76.0 % [facility] Comment: Interpretive Data Percent cell count reference ranges are not reported, since discordance with absolute values may lead to misinterpretation of CBC data. Current Interpretive Data was last revised on 2017. Imm gran pct 1.2 % [facility] Comment: Interpretive Data Percent cell count reference ranges are not reported, since discordance with absolute values may lead to misinterpretation of CBC data. Current Interpretive Data was last revised on 2017. Lymphocyte pct 13.2 % [facility] Comment: Interpretive Data Percent cell count reference ranges are not reported, since discordance with absolute values may lead to misinterpretation of CBC data. Current Interpretive Data was last revised on 2017. Monocyte pct 4.5 % [facility] Comment: Interpretive Data Percent cell count reference ranges are not reported, since discordance with absolute values may lead to misinterpretation of CBC data. Current Interpretive Data was last revised on 2017. Eosinophil pct 4.8 % [facility] Comment: Interpretive Data Percent cell count reference ranges are not reported, since discordance with absolute values may lead to misinterpretation of CBC data. Current Interpretive Data was last revised on 2017. Basophil pct 0.3 % [facility] Comment: Interpretive Data Percent cell count reference ranges are not reported, since discordance with absolute values may lead to misinterpretation of CBC data. Current Interpretive Data was last revised on 2017. Blood 04/01/2025 10:5 1 PM BARREL ASSEMBLER 04/01/2025 11:10 PM BARREL ASSEMBLER us Bola Harris MD LAB BLOOD ORDERABLES F inal Result [facility] Department [place] [address] * Heparin anti factor Xa activity (04/01/2025 10:51 PM BARREL ASSEMBLER) Pathologist [facility] Anti Factor Xa <0.10 IUnits/mL Comment: Interpretive [...] on 2018. Blood 04/01/2025 10:5 1 PM BARREL ASSEMBLER 04/01/2025 11:02 PM BARREL ASSEMBLER us Aristeo Plunkett Jr., MD LAB BLOOD ORDERABLES F inal Result [facility] Department [place] [address] * (ABNORMAL) CBC with auto differential (04/01/2025 10:51 PM BARREL ASSEMBLER) Pathologist [facility] WBC 14.47(H) 3.80 - 9.90 K/cumm Hgb 10.1(L) 13.0 - 17.5 g/dL [facility] Hct 30.9(L) 38.9 - 50.3 % [facility] Plt 282 150 - 400 K/cumm [facility] MPV 10.0 9.1 - 12.3 fL [facility] RBC 3.22(L) 4.30 - 5.80 M/cumm [facility] MCV 96.0 81.3 - 96.4 fL [facility] MCH 31.4 27.1 - 33.3 pg [facility] MCHC 32.7 32.3 - 35.7 g/dL [facility] RDW CV 13.1 11.1 - 14.9 % [facility] RDW SD 45.5 35.7 - 48.1 fL [facility] NRBC abs 0.00 0.00 - 0.01 K/cumm [facility] Blood 04/01/2025 10:5 1 PM BARREL ASSEMBLER 04/01/2025 11:10 PM BARREL ASSEMBLER Bola Harris MD LAB BLOOD ORDERABLES F inal Result Performing Organization Address [facility] Co de Phone Number [facility] [email or web address] [place] [address] * aPTT (04/01/2025 10:51 PM BARREL ASSEMBLER) aPTT 28 26 - 38 sec Comment: Interpretive Data Heparin therapeutic range: 66.0 - 100.0 seconds. Range based on correlation with therapeutic heparin activity range of 0.3 - 0.7 Units/mL. Blood 04/01/2025 10:5 1 PM BARREL ASSEMBLER 04/01/2025 11:02 PM BARREL ASSEMBLER Bola Harris MD LAB BLOOD ORDERABLES F inal Result Performing Organization Address City/[facility] Co de Phone Number [facility] [email or web address] [address] * Protime-INR (04/01/2025 10:51 PM BARREL ASSEMBLER) PT 11.1 10.2 - 13.5 sec INR 0.98 0.90 - 1.20 [facility] Comment: Interpretive data Oral anticoagulant therapeutic ranges: Venous thromboembolism prophylaxis or treatment: 2.0-3.0 CARDIOLOGY Standard range: 2.0-3.0 High-intensity range: 2.5-3.5 Refer to indication-specific guidelines for appropriate target ranges for prosthetic heart valve replacement. Current interpretive data was last revised on 2019. Blood 04/01/2025 10:5 1 PM BARREL ASSEMBLER 04/01/2025 11:02 PM BARREL ASSEMBLER Bola Harris MD LAB BLOOD ORDERABLES F inal Result Performing Organization Address City/[facility]/ZIP Co de Phone Number [facility] Department [place] [address] * Type and screen (04/01/2025 10:51 PM BARREL ASSEMBLER) Pathologist [facility] ABO Rh O Positive Todd, indirect Negative [facility] Blood 04/01/2025 10:5 1 PM BARREL ASSEMBLER 04/01/2025 11:22 PM BARREL ASSEMBLER Narrative [facility] - 04/02/2025 12:12 AM BARREL ASSEMBLER Has the patient had Daratumumab or Isatuximab in the past 6 months?->Unknown Bola Harrsi MD LAB BLOOD BANK TEST OR DERABLES Final Result Performing Organization Address City/[facility] Co de Phone Number [facility] Department [place] [address] * (ABNORMAL) Comprehensive metabolic panel (04/01/2025 10:51 PM BARREL ASSEMBLER) Pathologist [facility] Sodium 144 135 - 145 mmol/L Potassium, pl 4.3 3.3 - 4.9 mmol/L [facility] Chloride 101 97 - 110 mmol/L [facility] CO2 34(H) 22 - 32 mmol/L [facility] Anion gap 9 2 - 15 mmol/L [facility] BUN 19 6 - 25 mg/dL [facility] Creatinine 1.21 0.80 - 1.30 mg/dL [facility] Glucose 145 70 - 199 mg/dL [facility] Comment: Interpretive Data Fasting glucose >/= [...] Calcium 9.0 8.5 - 10.3 mg/dL [facility] Bilirubin, total 1.0 0.1 - 1.2 mg/dL [facility] Protein, pl 6.6 6.5 - 8.5 g/dL [facility] Albumin 4.1 3.5 - 5.0 g/dL [facility] Alk phos 86 40 - 130 Units/L [facility] ALT 17 7 - 55 Units/L [facility] AST 22 10 - 50 Units/L [facility] Blood 04/01/2025 10:5 1 PM BARREL ASSEMBLER 04/01/2025 11:10 PM BARREL ASSEMBLER us Bola Harris MD LAB BLOOD ORDERABLES F inal Result [facility] Department [place] [address] from Last 3 Months Insurance MEDICARE [employer] MEDICARE [facility] [employer] LIFE Advance Directives For more information, please contact: [phone] * LIMITED - No CPR (Latest Code [...] 5:10 AM 04/02/2025 6:02 AM Care Teams Carrier Operator Relationship Specialty Start Date End Date Jayjay Fernandes MD [address] [place] [address] PCP - General Family Medicine 04/01/25
--- OUTSIDE RECORDS SUMMARY | 2025-04-28 15:33 | XMS_ITS | Clinical Summary ---
Author Organization [facility] Address [address] [facility] [address] [place] [address] Phone Care Team Providers Care Web Application Developer Name Role Phone Unavailable Primary Care Provider [...] mouth daily. 30 Tablet 07/07/2024 12:27 PM SUGAR HOUSE SUPERVISOR Active Active Problems Problem Noted Date Diagnosed Date Acute blood loss anemia 06/26/2024 Acute lower GI bleeding 06/26/2024 COPD (chronic obstructive pulmonary disease) Coronary artery disease invo lving [place] coronary artery of [place] heart without angina pectoris 06/26/2024 Primary hypertension [...] on file Legal Sex Male 11:07 PM SUGAR HOUSE SUPERVISOR Gender Identity Not on file Sexual Orientation Not on file Last Filed Vital Signs Vital Sign Reading Time Taken Comments Blood Pressure 113/45 07/07/2024 6:10 AM SUGAR HOUSE SUPERVISOR Pulse 72 07/07/2024 8:23 AM SUGAR HOUSE SUPERVISOR Temperature 37.1 C (98.7 F) 07/07/2024 4:57 AM SUGAR HOUSE SUPERVISOR Respiratory Rate 18 07/07/2024 8:23 AM SUGAR HOUSE SUPERVISOR Oxygen Saturation 98% 07/07/2024 8:23 AM SUGAR HOUSE SUPERVISOR Inhaled Oxygen Concentration - - Weight 69.1 kg (152 lb 4.8 oz) 06/26/2024 2:09 A M [employer] HOUSE SUPERVISOR Height 180.3 cm (5' 11) 06/26/2024 2:09 AM SUGAR HOUSE SUPERVISOR Body Mass Index 21.24 06/26/2024 2:09 AM SUGAR HOUSE SUPERVISOR Plan of Treatment Health Maintenance Due Date [...] exists Insurance MEDICARE PART A AND B [employer] [place] [employer] (INTERNAL) [facility] Advance Directives For more information, please contact: [phone] * NO CPR (In Event of Cardiopulmonary Arrest) (Latest Code Status on File) Date Activated Date Inactivated Comments 06/26/2024 2:37 AM 07/07/2024 2:53 PM Question Answer Comments Mechanical Ventilation (for respiratory distress) - Invasive (i.e. intubation): No Mechanical Ventilation (for respiratory distress) - Non-Invasive (i.e. BiPAP, CPAP): Yes
[2025-04-28] MEDS: KCL 20 MEQ/SW 100 ML 100 ML 50 MEQ IVPB (15:37)
[2025-04-28] MEDS: POTASSIUM CHLORIDE 20 MEQ PACKET (FOR LIQUID) 40 MEQ PO (15:37)
--- NOTE | 2025-04-28 16:10 | ADMGEN ---
This patient, Chip Emery, was admitted to 2nd Floor Room 210-1. Patient/family oriented to hospital policies and general routines including ID bracelet, bed and alarms, visiting hours, pain management, procedures, bathroom and other care routines, personal items, smoking policy, room service/diet, and visiting hours. Information on how to activate the Rapid Response Team has been discussed. Patient/Family are encouraged to report perceived risks to care and to ask questions if they do not understand what they are told or what they should do.
[2025-04-28] MEDS: REMDESIVIR 200 MG/NS 250 ML 200 MG/250 ML BAG 250 MG IVPB (18:10)
[2025-04-28] MEDS: SIMETHICONE 80 MG TAB.CHEW PO (20:09)
[2025-04-28] MEDS: SENNA/DOCUSATE SODIUM TABLET 1 TAB PO (20:10)
[2025-04-28] MEDS: SERTRALINE HCL 50 MG TABLET PO (20:10)
[2025-04-28] MEDS: ALPRAZolam (*CRX) 0.25 MG TABLET PO (20:10)
[2025-04-28] MEDS: guaiFENesin 12 HR 600 MG TABCR 1200 MG PO (20:10)
[2025-04-28] MEDS: ACETAMINOPHEN 325 MG TABLET 650 MG PO (20:10)
[2025-04-28] MEDS: TAMSULOSIN HCL 0.4 MG CAPSULE PO (20:10)
[2025-04-29] VITALS (15 sets, daily range): BP systolic 137–141; BP diastolic 57–78; PULSE 59–115; RESP 20–24; TEMP 36.3–36.8; O2SAT 96–100
[2025-04-29 05:35] LABS: Hematocrit 36.8 % (37.0-46.0); Hemoglobin 11.1 g/dL (12.4-15.3); Mean Corpuscular HGB Conc 30.2 g/dL (32-36); Mean Corpuscular Hemoglobin 29.8 pg (27.0-31.0); Mean Corpuscular Volume 98.9 fL (78.0-102.0); Platelet Count Result 264 K/mm3 (150-420); Red Blood Count 3.72 M/mm3 (4.70-6.10); White Blood Count 3.1 K/mm3 (4.8-10.8)
[2025-04-29 05:48] LABS: Alanine Aminotransferase 22 U/L (6-50); Albumin Level 4.1 g/dL (3.5-5.1); Alkaline Phosphatase 106 U/L (38-126); Anion Gap 8 mmol/L (4-12); Aspartate Amino Transferase 31 U/L (17-59); Bilirubin,Total 0.5 mg/dL (0.2-1.3); Blood Urea Nitrogen 16 mg/dL (9-20); Calcium 9.2 mg/dL (8.4-10.2); Carbon Dioxide 38 mmol/L (22-30); Chloride 96 mmol/L (98-107); Estimated CRCL calculation 45 ml/min; Estimated Glomerular Filt Rate > 60; Glucose 139 mg/dL (65-110); Magnesium 2.2 mg/dL (1.6-2.3); Osmolality Calculated 297 mOsm/kg (285-295); Potassium 3.8 mmol/L (3.4-5.0); Sodium 142 mmol/L (137-145); Total Protein 7.2 g/dL (6.3-8.2)
[2025-04-29 05:57] LABS: Band Neutrophils Percent 0 % (0-6); Lymphocytes Absolute Manual 0.80 K/mm3 (1.1-4.5); Lymphocytes Percent Manual 26 % (18-44); Neutrophils Absolute Manual 2.07 K/mm3 (1.3-6.7); Neutrophils Percent Manual 67 % (46-73)
[2025-04-29 05:58] LABS: Basophils Absolute Manual 0.00 K/mm3 (0-0.1); Basophils Percent Manual 0 % (0-1); Eosinophils Absolute Manual 0.00 K/mm3 (0.02-0.50); Eosinophils Percent Manual 0 % (1-6); Monocytes Absolute Manual 0.21 K/mm3 (0.1-0.90); Monocytes Percent Manual 7 % (3-9)
[2025-04-29] MEDS: BUDESONIDE RESPULE NEB 0.25 MG/2 ML AMP INHALATION ×3 (06:28→20:19)
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
[2025-04-29] MEDS: SIMETHICONE 80 MG TAB.CHEW PO ×4 (09:07→20:20)
[2025-04-29] MEDS: CALCIUM CARBONATE (OSCAL) 500 MG TABLET PO (09:07)
[2025-04-29] MEDS: FUROSEMIDE 40 MG TABLET PO ×2 (09:07→17:10)
[2025-04-29] MEDS: LORATADINE 10 MG TABLET PO (09:07)
[2025-04-29] MEDS: ALPRAZolam (*CRX) 0.25 MG TABLET PO ×3 (09:07→20:19)
[2025-04-29] MEDS: guaiFENesin 12 HR 600 MG TABCR 1200 MG PO ×2 (09:07→20:19)
[2025-04-29] MEDS: FINASTERIDE 5 MG TABLET PO (09:08)
[2025-04-29] MEDS: PANTOPRAZOLE 40 MG TABLET PO (09:08)
[2025-04-29] MEDS: MORPHINE SULFATE ORAL CONC SOL (*CRX) 10 MG/0.5 ML SYRINGE 5 MG PO ×2 (09:16→20:20)
[2025-04-29] MEDS: REMDESIVIR 100 MG/NS 250 ML 100 MG/250 ML BAG 250 MG IVPB (10:29)
--- NOTE | 2025-04-29 13:37 | PC.NURSE ---
1330 - Pt called out stating he is having a coughing fit. On arrival to pts room, I discussed his congestion and the mucinex ordered to help break up the congestion and the need for his to try to expectorate the phlegm out. Pt stated he was afraid he would choke to on the phlegm. Repositioned pt with hob elevated and pillow support. Resp will come to give his scheduled breathing treatment.
[2025-04-29] MEDS: IPRATROPIUM 0.5 MG/ALBUTEROL SULFATE 2.5 MG (BASE) AMPUL.NEB 3 ML INHALATION (13:44)
[2025-04-29] MEDS: SERTRALINE HCL 50 MG TABLET PO (20:19)
[2025-04-29] MEDS: SENNA/DOCUSATE SODIUM TABLET 1 TAB PO (20:20)
[2025-04-29] MEDS: TAMSULOSIN HCL 0.4 MG CAPSULE PO (20:20)
[2025-04-30] VITALS (8 sets, daily range): BP systolic 122–136; BP diastolic 53; PULSE 56–78; RESP 19–20; TEMP 36.3–36.4; O2SAT 96–100
[2025-04-30] MEDS: BUDESONIDE RESPULE NEB 0.25 MG/2 ML AMP INHALATION ×2 (06:37→13:16)
[2025-04-30] MEDS: MORPHINE SULFATE ORAL CONC SOL (*CRX) 10 MG/0.5 ML SYRINGE 5 MG PO (09:19)
[2025-04-30] MEDS: ALPRAZolam (*CRX) 0.25 MG TABLET PO ×2 (09:21→13:09)
[2025-04-30] MEDS: IPRATROPIUM 0.5 MG/ALBUTEROL SULFATE 2.5 MG (BASE) AMPUL.NEB 3 ML INHALATION (09:30)
[2025-04-30] MEDS: CALCIUM CARBONATE (OSCAL) 500 MG TABLET PO (09:35)
[2025-04-30] MEDS: FUROSEMIDE 40 MG TABLET PO (09:36)
[2025-04-30] MEDS: FINASTERIDE 5 MG TABLET PO (09:36)
[2025-04-30] MEDS: SIMETHICONE 80 MG TAB.CHEW PO ×2 (09:36→13:09)
[2025-04-30] MEDS: PANTOPRAZOLE 40 MG TABLET PO (09:36)
[2025-04-30] MEDS: guaiFENesin 12 HR 600 MG TABCR 1200 MG PO (09:36)
[2025-04-30] MEDS: LORATADINE 10 MG TABLET PO (09:36)
[2025-04-30] MEDS: REMDESIVIR 100 MG/NS 250 ML 100 MG/250 ML BAG 250 MG IVPB (10:13)
--- NOTE | 2025-04-30 12:36 | PM.DS ---
DS: Summary Time Spent with Patient Time attestation: Total time spent providing and/or coordinating discharge services: Discharge Plan Discharge Attending physician on discharge: Nuno Matos Discharging Clinician: Jessica Thomas Anticipated Discharge Date/Time: 04/30/25 12:02 Patient Disposition: NH [facility] Activity: as tolerated Diet: as tolerated Discharge Instructions: Patient will be admitted to hospice on arrival back to skilled nursing, [facility] will come to see patient. Patient is DNR comfort measures Patient tested positive for Covid-19 on 04/28/2025 Patient Instructions: Antibiotic Form, Alprazolam (By mouth), Dexamethasone (By mouth), Heart Failure (DC), COPD (Chronic Obstructive Pulmonary Disease) (DC), COVID-19 (Coronavirus Disease 2019) (DC) Patient Language: Lao Stand Alone Forms: General Discharge Information, Half-Way Discharge Follow-up/Referrals: Dena,Jayjay [Other] - Call for Appointment Referral Note: Please follow up with PCP after admission back to the skilled nursing. Patient will also be admitted to hospice on admission to the skilled nursing for comfort measures. Discharge Medications: New alprazolam 0.25 mg Tablet 0.25 mg PO TID Qty: 12 0RF alprazolam 0.25 mg Tablet 0.25 mg PO TID PRN (Reason: Anxiety) Qty: 12 0RF dexamethasone 2 mg Tablet 6 mg PO Q24H 8 Days Qty: 24 0RF morphine concentrate 100 mg/5 mL (20 mg/mL) solution 5 mg PO Q12H Qty: 15 0RF Rx Instructions: Please give 5 mg (0.25 mL) PO Q 12 hours scheduled at 0800 and 2000. Can also give 5 mg (0.25 mL) PO Q 12 hours PRN for dyspnea. Continued atorvastatin 40 mg tablet 40 mg PO HS sertraline 50 mg tablet 50 mg PO HS budesonide [Pulmicort] 0.25 mg/2 mL suspension for nebulization 0.25 mg inhalation TID furosemide 40 mg tablet 40 mg PO BID Qty: 60 0RF polyethylene glycol 3350 [Miralax] 17 gram powder in packet 17 g PO DAILY acetaminophen 325 mg Tablet 650 mg PO Q6H PRN (Reason: Mild Pain (1-3) Or Fever) Qty: 1 0RF sennosides-docusate sodium [Senokot-S] 8.6-50 mg Tablet 1 tab PO HS Qty: 1 0RF loratadine 10 mg Tablet 10 mg PO QAM Qty: 1 0RF simethicone 80 mg Tablet,Chewable 80 mg PO QID Qty: 1 0RF guaifenesin [Mucus Relief ER] 600 mg Tablet Extended Release 12hr 1,200 mg PO Q12HR Qty: 1 0RF naloxone [Narcan] 4 mg/actuation spray,non-aerosol 4 mg intranasal Q3M PRN (Reason: opioid overdose) Qty: 2 0RF Rx Instructions: spray 1 dose into ONE nostril; alternate nostrils w each dose until help arrives calcium carbonate [Calcium 600] 600 mg calcium (1,500 mg) tablet 600 mg PO DAILY pantoprazole 40 mg tablet,delayed release (DR/EC) 40 mg PO QAM albuterol sulfate 0.63 mg/3 mL solution for nebulization 0.63 mg inhalation Q4H Patient Comments: Q4H while awake finasteride 5 mg tablet 5 mg PO DAILY tamsulosin 0.4 mg Capsule 0.4 mg PO HS carvedilol 3.125 mg tablet 3.125 mg PO BID Discontinued alprazolam 0.5 mg tablet 0.5 mg PO Q12H alprazolam [Xanax] 0.25 mg tablet 0.25 mg PO Q12H Date of admission: 04/28/25 15:47 Primary Care Provider: ElijahJayjay Admitting Provider: Nuno Matos Attending physician on admission: Nuno Matos Condition: Stable
--- NOTE | 2025-04-30 13:20 | PC.NURSE ---
Patient discharging back to [facility] and re[facility]. [facility] to follow patient there. Report called to Marybel at 1320. [facility] worker will be here to transport patient at 1345. Spoke with Patients MUSA Davila, updated her on discharge status and hospice protocol.
--- NOTE | 2025-04-30 14:04 | PC.NURSE ---
1350- Discharge orders received. CNAs from [facility] arrived to transport pt via wheelchair with all belongings.
--- NOTE | 2025-05-03 08:47 | PC.NURSE ---
Discharge call back, returned to senior care, no questions regarding dc instrucitons
== END 2025-04-30 13:50 ==
LOC: CHSED 15:31 → CHS2ND 15:54
PROVIDERS: Nurse Practitioner Adult Health; Admitting Provider Internal Medicine; Emergency Provider Family Medicine; Visit Provider Internal Medicine
DX: U07.1 COVID-19 (principal); E87.6 Hypokalemia; J41.0 Simple chronic bronchitis; F41.9 Anxiety disorder, unspecified; I50.9 Heart failure, unspecified; Z95.0 Presence of cardiac pacemaker; J44.9 Chronic obstructive pulmonary disease, unspecified; Z99.81 Dependence on supplemental oxygen; K21.9 Gastro-esophageal reflux disease without esophagitis; N40.0 Benign prostatic hyperplasia without lower urinary tract symptoms; Z86.73 Personal history of transient ischemic attack (TIA), and cerebral infarction without residual deficits; I25.2 Old myocardial infarction; Z96.642 Presence of left artificial hip joint
CPT/HCPCS: 36415; 36600; 71045; 80053; 82805; 83735; 84484; 85025; 85610; 87637; 93005; 94640; 96374; 96375; 99285; A9270; J0248; J2270; J3360; J3480; J8540